=== PATIENT | female | born 1945 | race Caucasian/White ===

== ENCOUNTER 2020-08-29 09:17 | Outpatient (REF) | payer SELFPAY | END 2020-08-29 09:18 | disposition home or self-care (01) | LOC: HO.HAP 09:17 | PROVIDERS: PCP Internal Medicine Pulmonary Disease; Referring Provider Internal Medicine Pulmonary Disease; Visit Provider Internal Medicine Pulmonary Disease | DX: Z46.1 Encounter for fitting and adjustment of hearing aid (principal); H90.3 Sensorineural hearing loss, bilateral | CPT/HCPCS: 99499; V5267 ==

== ENCOUNTER 2020-12-21 12:00 | Outpatient (REF) | payer SELFPAY | END 2020-12-21 12:01 | disposition home or self-care (01) | LOC: HO.HAP 12:00 | PROVIDERS: Visit Provider Internal Medicine Pulmonary Disease | DX: Z46.1 Encounter for fitting and adjustment of hearing aid (principal) | CPT/HCPCS: V5267 ==

== ENCOUNTER 2021-01-29 09:13 | Outpatient (REF) | payer SELFPAY | END 2021-01-29 09:14 | disposition home or self-care (01) | LOC: HO.HAP 09:13 | PROVIDERS: Visit Provider Internal Medicine Pulmonary Disease | DX: Z46.1 Encounter for fitting and adjustment of hearing aid (principal); H90.3 Sensorineural hearing loss, bilateral | CPT/HCPCS: 99499 ==

== ENCOUNTER 2021-06-26 10:30 | Outpatient (REF) | payer MEDICARE, OTHER, SELFPAY ==
[2021-06-26 11:55] LABS: MANUAL DIFF FLAG NO
[2021-06-26 12:01] LABS: Basophils Absolute Auto 0.1 X10*3/uL (0.0-0.2); Eosinophils Absolute Auto 0.2 X10*3/uL (0.0-0.4); Eosinophils Percent Auto 2.7 % (0-4); Hematocrit 37.9 % (37-47); Hemoglobin 12.2 g/dl (12.0-16.0); Imm Gran Abs Auto 0.02 X10*3/uL (0.00-0.03); Imm Gran Pct Auto 0.3 % (0.0-0.4); Lymphocytes Absolute Auto 0.9 X10*3/uL (1.2-4.9); Lymphocytes Percent Auto 15.1 % (20-40); Mean Corpuscular HGB Conc 32.2 g/dl (31.0-35.0); Mean Corpuscular Hemoglobin 32.8 pg (27.0-33.0); Mean Corpuscular Volume 101.9 fL (80-98); Mean Platelet Volume 10.5 fL (9.4-12.3); Monocytes Absolute Auto 0.5 X10*3/uL (0.1-1.2); Neutrophils Absolute Auto 4.2 X10*3/uL (2.0-8.3); Neutrophils Percent Auto 71.9 % (45-73); Platelet Count 323 X10*3/uL (160-400); Red Blood Count 3.72 X10*6/uL (4.20-5.50); Red Cell Distribution Width 12.6 % (11.0-16.0); White Blood Count 5.9 X10*3/uL (4.8-10.8)
[2021-06-26 12:16] LABS: Alanine Aminotransferase 10 U/L (0-31); Alkaline Phosphatase 87 U/L (39-117); Anion Gap 14 (12-20); Aspartate Amino Transferase 13 U/L (5-31); Bilirubin Total 0.4 mg/dL (0.0-1.0); Blood Urea Nitrogen 23 mg/dL (9-16); Calcium 9.7 mg/dL (8.4-10.2); Carbon Dioxide 21 mmol/L (22-29); Chloride 112 mmol/L (96-108); Cholesterol 142 mg/dL; Estimated Glomerular Filt Rate 35; Glucose Fasting 133 mg/dL (60-99); HDL Cholesterol 40 mg/dL; Iron 59 mcg/dL (30-160); LDL Cholesterol Calculated 70 mg/dl; Percent Iron Saturation 19 % (15-50); Potassium 4.3 mmol/L (3.3-5.1); Sodium 143 mmol/L (135-145); Total Iron Binding Capacity 308 mcg/dL (228-428); Total Protein 6.8 g/dL (6.5-8.0); Triglycerides 163 mg/dL; Unsaturated Iron Binding 249 ug/dL
[2021-06-26 12:20] LABS: Estimated Average Glucose 111 mg/dL; Hemoglobin A1c % 5.5 %
[2021-06-26 12:36] LABS: Ferritin 159 ng/mL (10-250); TSH reflex Free T4 0.13 uIU/mL (0.32-4.0)
[2021-06-26 12:50] LABS: Folate 7.6 ng/mL (> or = 4.0); Vitamin B12 205 pg/mL (200-900)
== END 2021-06-26 10:31 | disposition home or self-care (01) ==
LOC: HO.HMGCLDS 10:30
PROVIDERS: PCP Nurse Practitioner Family; Visit Provider Nurse Practitioner Family
DX: R53.83 Other fatigue (principal); E11.9 Type 2 diabetes mellitus without complications; E03.9 Hypothyroidism, unspecified
CPT/HCPCS: 36415; 80053; 80061; 82607; 82728; 82746; 83036; 83540; 84439; 84443; 85025

== ENCOUNTER 2021-06-27 | Outpatient (REF) | payer MEDICARE, OTHER, SELFPAY ==
[2021-06-27 11:26] LABS: Appearance Urine HAZY; Color Urine YELLOW; Glucose Urine UA NEG (NEG); Leukocyte Esterase Urine 1+ (NEG); Nitrite Urine NEG (NEG); PH 5.5 (5.0-8.0); Specific Gravity - Urine 1.025 (1.005-1.025); UACC Culture Trigger YES; Urine Blood NEG (NEG); Urine Ketones NEG (NEG); Urine Protein NEG (NEG-TRACE)
[2021-06-27 11:45] LABS: Mucus Urine 1+ /LPF; Squamous Epithelial Cell Urine 2+ /LPF
[2021-06-27 11:46] LABS: RBC Urine 0-2 /HPF (0)
== END 2021-06-27 00:01 | disposition home or self-care (01) ==
LOC: HO.HMGCLNP
PROVIDERS: Visit Provider Nurse Practitioner Family
DX: E11.9 Type 2 diabetes mellitus without complications (principal)
CPT/HCPCS: 81001; 82043; 87086; 87088; 87186

== ENCOUNTER 2021-08-15 08:24 | Outpatient (REF) | payer SELFPAY ==
--- NOTE | 2021-08-15 08:47 | MHC.AU.P13 ---
Hearing Instrument Problem Date of Visit: 08/15/21 Right Ear: Pediatric Social Worker: Phonak Model: VIRTO Q70-10 NW0 Serial Number: [id number] Repair Warranty: 03/25/2019 Battery Size: 10 Type of Wax Guard: CERUSTOP Dispensed By: [facility] Date of Fittin03/08/2015 Left Ear: Pediatric Social Worker: Phonak Model: VIRTO Q70-10 NW0 Serial Number: [id number] Repair Warranty: 03/25/2019 Battery Size: 10 Type of Wax Guard: CERUSTOP Dispensed By: [facility] Date of Fittin03/08/2015 Follow-Up Summary: Patient brought aids in for maintenance/right pull cord missing. Aids cleaned, wax guards replaced and amplifying clearly. Patient cannot handle without pull cord so agreed to send for repair at cost of $315.00. Recommendations: Recommendations: Patient will be contacted when materials have arrived. Diagnosis Code(s): Primary Diagnosis: H90.3 Bilateral Sensorineural Hearing Loss Signature: Provider: ITZEL Traore
== END 2021-08-15 08:25 | disposition home or self-care (01) ==
LOC: HO.HAP 08:24
PROVIDERS: Visit Provider Nurse Practitioner Family
DX: Z13.89 Encounter for screening for other disorder (principal)

== ENCOUNTER 2021-08-28 09:46 | Outpatient (REF) | payer SELFPAY | END 2021-08-28 09:47 | disposition home or self-care (01) | LOC: HO.HAP 09:46 | PROVIDERS: Visit Provider Nurse Practitioner Family | DX: Z46.1 Encounter for fitting and adjustment of hearing aid (principal); H90.3 Sensorineural hearing loss, bilateral | CPT/HCPCS: V5014 ==

== ENCOUNTER 2021-09-13 08:46 | Outpatient (REF) | payer MEDICARE, OTHER, SELFPAY ==
--- NOTE | ~2021-09-13 | MM_ITS ---
EXAMINATION: BONE DENSITOMETRY CLINICAL INDICATION: Menopause. COMPARISON: This is the patient's baseline examination. TECHNIQUE: Using a Spins.FM DXA System (software version: 13.1) manufactured by [employer], dual-energy x-ray absorptiometry was performed of the lumbar spine and left hip. The images are of good technical quality. Summary results are attached. FINDINGS: AP SPINE L1-L4: BMD 1.207 g/cm2, Z-score 1.1, T-score 0.2, normal. LEFT FEMUR, NECK: BMD 0.734 g/cm2, Z-score -0.9, T-score -2.2, osteopenia. LEFT FEMUR, TOTAL: BMD 0.868 g/cm2, Z-score 0.0, T-score -1.1, osteopenia. IDENTIFIED RISK FACTORS: Early menopause, history of fracture (adult), hysterectomy, renal, right oophorectomy, secondary osteoporosis. HISTORY OF FRACTURE: Wrist, ankle. MEDICATIONS: ERT/SERMS. MM/XR DEXA axial skeleton IMPRESSION: 1. DIAGNOSIS: Osteopenia based on the lowest T-score value of -2.2 in the femoral neck applying World Health Organization criteria. 2. 10-YEAR FRACTURE RISK PREDICTION, FRAX: Major osteoporotic fracture (clinical spine, forearm, hip or shoulder) 19.1%. Hip fracture 4.5%. 3. Treatment Recommendations: NOF guidelines recommend consideration for treatment in postmenopausal women and men age 50 and older presenting with the following: -A hip or vertebral (clinical or morphometric) fracture. -T-score less than or equal to -2.5 at the femoral neck or spine after appropriate evaluation to exclude secondary causes. -Low bone mass at the hip or spine and a 10-year fracture probability by FRAX of greater than or equal to 3% for hip fracture or greater than or equal to 20% for major osteoporotic fracture based on the [place] adapted WHO algorithm. 4. Other Recommendations: All treatment decisions require clinical judgment and consideration of individual patient factors, including patient preferences, comorbidities, previous drug use, risk factors not captured in the FRAX model (e.g. frailty, falls, vitamin D deficiency, increased bone turnover, interval significant decline in bone density) and possible under or overestimation of fracture risk by FRAX. Additional medical evaluation for secondary cause of low bone mineral density may be appropriate. FUTURE SCAN RECOMMENDATION: People with diagnosed cases of osteoporosis or at high risk for fracture should have regular bone mineral density tests. For patients eligible for Medicare, routine testing is allowed once every 2 years. The testing frequency can be increased to one year for patients who have rapidly progressing disease, those who are receiving or discontinuing medical therapy to restore bone mass, or have additional risk factors.
== END 2021-09-13 08:47 | disposition home or self-care (01) ==
LOC: HO.MAMMO 08:46
PROVIDERS: Visit Provider Nurse Practitioner Family
DX: Z13.820 Encounter for screening for osteoporosis (principal); M85.80 Other specified disorders of bone density and structure, unspecified site; Z78.0 Asymptomatic menopausal state; Z98.890 Other specified postprocedural states; Z79.899 Other long term (current) drug therapy
CPT/HCPCS: 77080

== ENCOUNTER 2021-11-16 13:55 | Outpatient (REF) | payer MEDICARE, OTHER, SELFPAY ==
[2021-11-16 16:16] LABS: MANUAL DIFF FLAG NO
[2021-11-16 16:19] LABS: Basophils Percent Auto 0.8 % (0-2); Eosinophils Absolute Auto 0.3 X10*3/uL (0.0-0.4); Eosinophils Percent Auto 5.1 % (0-4); Hematocrit 38.8 % (37.0-47.0); Hemoglobin 12.7 g/dl (12.0-16.0); Imm Gran Abs Auto 0.02 X10*3/uL (0.00-0.03); Imm Gran Pct Auto 0.4 % (0.0-0.4); Lymphocytes Absolute Auto 1.2 X10*3/uL (1.2-4.9); Lymphocytes Percent Auto 25.1 % (20-40); Mean Corpuscular HGB Conc 32.7 g/dl (31.0-35.0); Mean Corpuscular Hemoglobin 31.4 pg (27.0-33.0); Mean Platelet Volume 10.9 fL (9.4-12.3); Monocytes Absolute Auto 0.5 X10*3/uL (0.1-1.2); Monocytes Percent Auto 9.8 % (2-11); Neutrophils Absolute Auto 2.9 x10*3/uL (2.0-8.3); Neutrophils Percent Auto 58.8 % (45-73); Platelet Count 234 X10*3/uL (160-400); Red Blood Count 4.04 X10*6/uL (4.20-5.50); Red Cell Distribution Width 11.5 % (11.0-16.0); White Blood Count 4.9 X10*3/uL (4.8-10.8)
[2021-11-16 16:24] LABS: INTERNATIONAL NORM RATIO 0.9 (0.9-1.1); Prothrombin Time 10.3 SEC (9.9-13.0)
[2021-11-16 16:27] LABS: Partial Thromboplastin Time 28.3 SEC (24.1-38.0)
[2021-11-16 16:41] LABS: Alanine Aminotransferase 11 U/L (0-31); Albumin Level 4.1 g/dL (3.5-5.0); Alkaline Phosphatase 80 U/L (39-117); Anion Gap 13 (12-20); Aspartate Amino Transferase 14 U/L (5-31); Bilirubin Total 0.5 mg/dL (0.0-1.0); Blood Urea Nitrogen 25 mg/dL (9-16); Carbon Dioxide 28 mmol/L (22-29); Chloride 105 mmol/L (96-108); Estimated Glomerular Filt Rate 32; Glucose Random 99 mg/dL (60-115); Potassium 4.2 mmol/L (3.3-5.1); Sodium 142 mmol/L (135-145); Total Protein 6.7 g/dL (6.5-8.0)
[2021-11-16 17:02] LABS: TSH reflex Free T4 1.36 uIU/mL (0.32-4.0)
== END 2021-11-16 13:56 | disposition home or self-care (01) ==
LOC: HO.HMGCLDS 13:55
PROVIDERS: PCP Nurse Practitioner Family; Visit Provider Nurse Practitioner Family
DX: Z01.818 Encounter for other preprocedural examination (principal)
CPT/HCPCS: 36415; 80053; 84443; 85025; 85610; 85730

== ENCOUNTER 2022-03-13 13:10 | Outpatient (REF) | payer MEDICARE, OTHER, SELFPAY ==
[2022-03-13 13:31] LABS: Binax Now Covid-19 Ag Positive (Negative); Binax Performed by: HO.BONILM
[2022-03-13 13:32] LABS: Binax Internal Control QC Valid
== END 2022-03-13 13:11 | disposition home or self-care (01) ==
LOC: HO.HMGCLDS 13:10
PROVIDERS: Visit Provider Physician Assistant
DX: Z20.822 Contact with and (suspected) exposure to COVID-19 (principal); J06.9 Acute upper respiratory infection, unspecified
CPT/HCPCS: 87811

== ENCOUNTER → 2022-04-03 13:54 | Outpatient (REF) | payer MEDICARE, OTHER, SELFPAY ==
--- NOTE | 2022-04-03 14:20 | CA_ITS ---
Transthoracic Echocardiogram Patient (Last, First, Middle): Kayleen Wilson C Gender: Female Date of : 1945 Age: 76 Procedure Date: 04/03/2022 Procedure Type: Transthoracic Echocardiogram Location: OP Height: 154.94 cm Weight: 83.01 kg BSA: 1.82 m2 Heart Rate: bpm BP: 122 / 70 mmHg Manager Switch: Referring MD: John Herrera [facility] Symptoms: R01.1 - Cardiac murmur, unspecified Study Quality: Adequate ECG Rhythm: Sinus Conclusions: - 1. Normal LV systolic function with mild LVH with impaired relaxation filling pattern 2. Mild to moderate aortic stenosis, more likely mild 3. Normal RV systolic pressure 4. No gross pericardial effusion Findings Left Ventricle Normal left ventricular size and systolic function. There is mildly increased left ventricular wall thickness. The visually estimated ejection fraction is between 60-65%. Spectral Doppler is indicative of an impaired relaxation filling pattern. E/E prime ratio is between 8 and 15 consistent with indeterminate filling pressures. Right Ventricle Normal right ventricular cavity size and systolic function. Atria The left atrium is normal in size. There is a mobile atrial septum noted. Interatrial shunt cannot be excluded. The right atrium is normal in size. Aortic Valve The aortic valve was not well visualized. There is mild calcification of the aortic valve. There is mild to moderate aortic valve stenosis. The peak aortic gradient is 21 mmHg.The mean gradient is 10 mmHg. The aortic valve area is 1.38 cm2. There is no aortic valve regurgitation. Mitral Valve The mitral valve was not well visualized. There is trace mitral valve regurgitation. There is no mitral valve stenosis. Pulmonic Valve The pulmonic valve was not well visualized. Tricuspid Valve Likely normal tricuspid valve structure and function. There is trace tricuspid valve regurgitation. The right ventricular systolic pressure is normal. The right ventricular systolic pressure is 15 mmHg. Normal right atrial pressure. There is no evidence of pulmonary hypertension. Great Vessels All visible segments of the aorta are normal in size. The pulmonary artery was not well visualized. Venous The inferior vena cava is normal in size and collapses greater than 50% with inspiration. Pericardium/Pleural There is no evidence of pericardial effusion. Measurements 2D Linear Measurements IVSd: 1.30 0.6-0.9/0.6-1.0 cm LVIDd: 4.24 3.9-5.3/4.2-5.9 cm LVIDd Index: 2.33 2.4-3.2/2.2-3.1 cm/m2 LVIDs: 2.78 2.0-3.6 cm LVPWd: 1.33 0.7-1.1 cm Ao Root: 3.00 2.1-3.5 cm LA Diam: 3.90 2.7-3.8/3.0-4.0 cm LAIDs Index: 2.14 1.5-2.3 cm/m2 LV Mass: 257.94 67-162/88-224 g LV Mass Index: 141.72 43-95/49-115 g/m2 LVOT Diam: 2.10 3.0+(-)1.3 cm Mitral Valve MV Pk E: 0.60 MV PK A: 0.84 MV Decel Time: 181.00 E/A: 0.70 E'Lateral: 6.74 E'Medial: 5.77 E/E' Med: 10.40 E/E' Lat: 8.90 PHT: 53.00 MVA PHT: 4.15 Decel Rhea: 3.32 Aortic Valve AoV Pk Bethel: 2.28 AoV Mn Bethel: 1.41 AoV VTI: 0.54 AoV Pk Grad: 21.00 Aov Mn Grad: 10.00 COURTNEY Cont.VTI: 1.38 LVOT LVOT Pk Bethel: 0.90 LVOT Mn Bethel: 0.59 LVOT VTI: 0.22 LVOT Pk Grad: 3.00 LVOT Mn Grad: 2.00 LVOT Diam: 2.10 LVOT Area: 3.46 Diastolic Function MV Pk E: 0.60 MV Pk A: 0.84 E/A: 0.70 E'Medial: 5.77 E/E' Med: 10.40 E' Laterial: 6.74 E/E' Lat: 8.90 Tricuspid Valve TR Pk Bethel: 1.76 TR Pk Grad: 12.00 RA Press: 3.00 RVSP: 15.00 Great Vessels Aorta Ao Root-2D: 3.00 2.0-3.7 cm Ao Asc: 3.10 2.1-3.4 cm Pulmonary Valve PV Pk Bethel: 1.29 Peak PV Grad: 7.00 Updated in Other Vendor System with Status of Final Bautista Gonzalez MD electronically signed on 04/04/2022 9:10:35 AM with status of Final
== END ==
LOC: HO.CARD 13:54
PROVIDERS: PCP Nurse Practitioner Family; Visit Provider Nurse Practitioner Family
DX: R01.1 Cardiac murmur, unspecified (principal)
CPT/HCPCS: 93306

== ENCOUNTER 2022-06-19 09:59 | Outpatient (REF) | payer MEDICARE, OTHER, SELFPAY ==
[2022-06-19 11:20] LABS: Appearance Urine Cloudy; Color Urine Yellow; Glucose Urine UA Negative (Negative); Leukocyte Esterase Urine Small (1+) (Negative); Nitrite Urine Negative (Negative); PH 5.5 (5.0-9.0); UMIC TRIGGER UACC YES; Urine Blood Small (1+) (Negative); Urine Ketones Negative (Negative); Urine Protein 30 (1+) mg/dL (Neg-Trace)
[2022-06-19 11:54] LABS: Bacteria Urine 4+ (None Seen); Hyaline Casts Urine 0-2 /LPF (0-2); RBC Urine 0-2 /HPF (0-2); Squamous Epithelial Cell Urine 0-2 /HPF (0-2); UACC Culture Trigger YES; WBC Urine 21-50 /HPF (0-5)
[2022-06-19 11:59] LABS: Creatinine Urine 62.34 mg/dL; Microalbum/Creatinine Ratio Ur 513.3 ug/mg cr
== END 2022-06-19 10:00 | disposition home or self-care (01) ==
LOC: HO.HMGCLDS 09:59
PROVIDERS: PCP Nurse Practitioner Family; Visit Provider Nurse Practitioner Family
DX: E11.9 Type 2 diabetes mellitus without complications (principal)
CPT/HCPCS: 81001; 82043; 87086; 87088; 87186

== ENCOUNTER 2022-11-06 10:30 | Outpatient (REF) | payer SELFPAY | END 2022-11-06 10:31 | disposition home or self-care (01) | LOC: HO.HAP 10:30 | PROVIDERS: Visit Provider Nurse Practitioner Family | DX: Z46.1 Encounter for fitting and adjustment of hearing aid (principal); H90.3 Sensorineural hearing loss, bilateral | CPT/HCPCS: 92592 ==

== ENCOUNTER 2022-11-07 12:53 | Outpatient (REF) | payer SELFPAY | END 2022-11-07 12:54 | disposition home or self-care (01) | LOC: HO.HAP 12:53 | PROVIDERS: Visit Provider Nurse Practitioner Family | DX: Z13.89 Encounter for screening for other disorder (principal) ==

== ENCOUNTER 2022-11-08 11:47 | Outpatient (REF) | payer SELFPAY | END 2022-11-08 11:48 | disposition home or self-care (01) | LOC: HO.HAP 11:47 | PROVIDERS: Visit Provider Nurse Practitioner Family | DX: Z13.89 Encounter for screening for other disorder (principal) ==

== ENCOUNTER 2023-02-05 10:02 | Outpatient (REF) | payer MEDICARE, OTHER, SELFPAY ==
[2023-02-05 11:33] LABS: MANUAL DIFF FLAG NO
[2023-02-05 11:52] LABS: Basophils Percent Auto 0.6 % (0-2); Eosinophils Absolute Auto 0.3 X10*3/uL (0.0-0.4); Eosinophils Percent Auto 4.9 % (0-4); Hematocrit 40.9 % (37.0-47.0); Hemoglobin 13.2 g/dl (12.0-16.0); Imm Gran Abs Auto 0.02 X10*3/uL (0.00-0.03); Imm Gran Pct Auto 0.3 % (0.0-0.4); Lymphocytes Absolute Auto 1.4 X10*3/uL (1.2-4.9); Lymphocytes Percent Auto 23.2 % (20-40); Mean Corpuscular HGB Conc 32.3 g/dl (31.0-35.0); Mean Corpuscular Hemoglobin 31.8 pg (27.0-33.0); Mean Corpuscular Volume 98.6 fL (80.0-98.0); Mean Platelet Volume 10.6 fL (9.4-12.3); Monocytes Absolute Auto 0.7 X10*3/uL (0.1-1.2); Monocytes Percent Auto 10.9 % (2-11); Neutrophils Absolute Auto 3.7 x10*3/uL (2.0-8.3); Neutrophils Percent Auto 60.1 % (45-73); Platelet Count 255 X10*3/uL (160-400); Red Blood Count 4.15 X10*6/uL (4.20-5.50); White Blood Count 6.2 X10*3/uL (4.8-10.8)
[2023-02-05 12:41] LABS: Estimated Average Glucose 94 mg/dL; Hemoglobin A1c % 4.9 %
[2023-02-05 12:54] LABS: Alanine Aminotransferase 8 U/L (0-31); Alkaline Phosphatase 70 U/L (39-117); Anion Gap 10 (12-20); Aspartate Amino Transferase 13 U/L (5-31); Bilirubin Total 0.6 mg/dL (0.0-1.0); Blood Urea Nitrogen 17 mg/dL (9-16); Calcium 9.7 mg/dL (8.4-10.2); Carbon Dioxide 26 mmol/L (22-29); Chloride 110 mmol/L (96-108); Cholesterol 176 mg/dL; Estimated Glomerular Filt Rate 49; Glucose Fasting 104 mg/dL (60-99); HDL Cholesterol 45 mg/dL; LDL Cholesterol Calculated 102 mg/dl; Potassium 4.4 mmol/L (3.3-5.1); Sodium 142 mmol/L (135-145); Total Protein 6.3 g/dL (6.5-8.0); Triglycerides 149 mg/dL
[2023-02-05 13:22] LABS: TSH reflex Free T4 2.25 uIU/mL (0.32-4.0)
== END 2023-02-05 10:03 | disposition home or self-care (01) ==
LOC: HO.HMGCLDS 10:02
PROVIDERS: PCP Nurse Practitioner Family; Visit Provider Nurse Practitioner Family
DX: E11.9 Type 2 diabetes mellitus without complications (principal); I10 Essential (primary) hypertension
CPT/HCPCS: 36415; 80053; 80061; 83036; 84443; 85025

== ENCOUNTER 2023-02-12 08:37 | Outpatient (REF) | payer OTHER, MEDICARE, SELFPAY ==
[2023-02-12 11:33] LABS: INTERNATIONAL NORM RATIO 0.9 (0.9-1.1); Prothrombin Time 9.9 SEC (10.0-13.1)
[2023-02-12 11:35] LABS: Partial Thromboplastin Time 27.2 SEC (26.0-36.4)
== END 2023-02-12 08:38 | disposition home or self-care (01) ==
LOC: HO.HMGCLDS 08:37
PROVIDERS: PCP Nurse Practitioner Family; Visit Provider Nurse Practitioner Family
DX: Z01.818 Encounter for other preprocedural examination (principal)
CPT/HCPCS: 36415; 85610; 85730

== ENCOUNTER 2023-05-15 13:46 | Outpatient (REF) | payer SELFPAY | END 2023-05-15 13:47 | disposition home or self-care (01) | LOC: HO.HAP 13:46 | PROVIDERS: Visit Provider Nurse Practitioner Family | DX: Z46.1 Encounter for fitting and adjustment of hearing aid (principal); H90.3 Sensorineural hearing loss, bilateral | CPT/HCPCS: 92593 ==

== ENCOUNTER 2023-06-09 15:05 | Outpatient (REF) | payer MEDICARE, OTHER, SELFPAY ==
[2023-06-09 17:24] LABS: Appearance Urine Clear; Color Urine Dark Yellow; Glucose Urine UA Negative (Negative); Leukocyte Esterase Urine Trace (Negative); Nitrite Urine Negative (Negative); Specific Gravity - Urine >= 1.030 (1.005-1.025); UMIC TRIGGER UACC YES; Urine Blood Negative (Negative); Urine Ketones Negative (Negative); Urine Protein 30 (1+) mg/dL (Neg-Trace)
[2023-06-09 17:32] LABS: Bacteria Urine None Seen (None Seen); Hyaline Casts Urine 0-2 /LPF (0-2); RBC Urine 0-2 /HPF (0-2); WBC Urine 0-5 /HPF (0-5)
== END 2023-06-09 15:06 | disposition home or self-care (01) ==
LOC: HO.HMGCLDS 15:05
PROVIDERS: PCP Nurse Practitioner Family; Visit Provider Nurse Practitioner Family
DX: I10 Essential (primary) hypertension (principal)
CPT/HCPCS: 81001; 81003

== ENCOUNTER 2023-06-16 13:20 | Outpatient (AMB) | payer MEDICARE, OTHER, SELFPAY ==
--- NOTE | 2023-06-16 13:26 | A.OFFVIS_ITS ---
Intake Vital Signs 06/16/23 13:32 Height 5 ft 1 in Weight 171 lb BMI 32.3 BP 142/92 H Blood Pressure Location Rt brachial Position Sitting Pulse 68 Pulse Source Pulse Oximeter Pulse Oximetry (%) 98 Oxygen Delivery Method Room Air Intake Visit Reasons: SWV G0439 Allergies cephalexin [From Keflex] Allergy (Severe, Verified 06/16/23 13:33) Swelling ciprofloxacin [From Cipro] Allergy (Severe, Verified 06/16/23 13:33) eye swelling penicillin G Allergy (Severe, Verified 06/16/23 13:33) Angioedema Penicillins Allergy (Severe, Verified 06/16/23 13:33) ANGIOEDEMA Sulfacet-R Allergy (Severe, Uncoded 02/12/23 08:01) Swelling Do you need a note to return to daycare/school/sports/work: No HPI SWV G0439 HPI Details Pt is here for an SWV. Denies fever, chills, and dizziness. [place] of care in scan pile. PPP will be scanned in chart and copy will be given to pt. Pt is going for a hearing test tomorrow. Will see pt for diabetes in 3 months, she is well-controlled. pt sees [facility] oncology team for breast ca [facility] Medical History (Updated 06/16/23 @ 14:05 by NU Claros) Lumbar radiculopathy Osteoarthritis Breast cancer, left Breast cancer Social History Housing: House Patient Tobacco Use Status: Former Tobacco user Tobacco use type: Cigarette Years Smoked: 50 years ago e-Cigarette/Vaping Use: Never Used Second Hand Smoke Exposure: No service: No Current occupational status: employed Current occupation: [employer] Current occupational exposures/hazards: No Cognitive needs: No Hearing needs: No Vision needs: Yes Questionnaire Medicare Wellness Checkup What [age] What gender do you identify with?: female During the past 4 weeks, how much have you been bothered by emotional problems such as feeling anxious, depressed, irritable, sad or downhearted, and blue?: quite a bit During the past 4 weeks, has your physical & emotional health limited your social activities with family, friends, neighbors, or groups?: quite a bit During the past 4 weeks, how much bodily pain have you generally had?: moderate pain During the past 4 weeks, was someone available to help you if you needed & wanted help?: yes, a little During the past 4 weeks, what was the hardest physical activity you could do for at least 2 minutes?: light Can you get to places out of walking distance without help? (For eg., can you travel alone on buses, taxis or drive your car?): Yes Can you go shopping for groceries or clothes without someone's help?: Yes Can you prepare your own meals?: Yes Can you do your housework without help?: No Because of any health problems, do you need the help of another person with your personal care needs such as eating, bathing, dressing or getting around the house?: No Can you handle your own money without help?: Yes During the past 4 weeks, how would you rate your health in general?: good During the past 4 weeks how have things been going for you?: good & bad parts about equal Are you having difficulties driving your car?: no Do you always fasten your seat belt when you are in a car?: yes, usually During past 4 weeks, have you been bothered by the following: never: Teeth or denture problems? and Problems using the telephone?, seldom: Falling or dizzy when standing up, sometimes: Tiredness or fatigue? and often: Trouble eating well? Have you fallen 2 or more times in the past year?: No Are you afraid of falling?: Yes Are you a smoker?: no During the past 4 weeks, how many drinks of wine, beer, or other alcoholic beverages did you have?: 1 drink or less per week Do you exercise for about 20 minutes 3 or more times a week?: no, I usually do not exercise this much Have you been given information to help with the following?: yes: Hazards in your house that might hurt you? and yes: Keeping track of your medications? How often do you have trouble taking medicines the way you have been told to take them?: I always take medicine as prescribed How confident are you that you can control & manage most of your health problems?: very confident What is your race?: White Mini Mental State Exam (MMSE) Orientation What is the (year) (season) (date) (day) (month)?: year (2022) Where are we (state) (county) (town or city) (hospital) (floor[place] Registration Name of 3 unrelated objects clearly and slowly, then ask patient to repeat all 3 of them. (1st repeat determines score. Make sure they can repeat all three): object 1, object 2 and object 3 Attention & Calculation (CHOOSE ONE) Spell WORLD backwards (DLROW): 5 letters Recall Ask patient to repeat the 3 items from question #3.: object 1, object 2 and object 3 Language Show patient a wristwatch & ask what it is. Repeat for pencil.: watch and pencil Ask the patient to repeat the phrase 'No ifs, ands, or buts' after you.: correct Ask the patient to 'take a piece of paper with their right hand' 'fold paper in half' 'place paper on floor': take paper in right hand, fold paper in half and place paper on floor Print the sentence 'CLOSE YOUR EYES' on a piece. If patient actually closes eyes then score.: followed written direction Give patient a blank piece of paper & ask to write a sentence. Score if it contains a noun & verb.: sentence contains subject and verb Ask patient to copy figure of intersecting pentagons exactly. Score if all 10 angles & 2 intersects are included.: all 10 angles present & 2 are intersected Score Score: 22 Activity of Daily Living Bathing - sponge bath, tub bath or shower: receives no assistance (gets in/out by self, if usual bathing means Dressing - getting clothes from closets & drawers, including inner/outer garments & fasteners.: gets clothes & gets completely dressed without help Toileting - going to the 'toilet room' for urine/bowel elimination & cleaning self/arranging clothes: goes to toilet room, cleans self, arranges clothes without help Transfer: moves in & out of bed and chair without help (may use support object) Continence: controls urination/bowel movements completely by self Feeding: feeds self without help Total Score: 0 Information obtained from: patient Using telephone: independent Traveling: independent Shopping: independent Preparing meals: independent Housework: independent Taking medicine: independent Managing money: independent Review of Systems Const Reports as per HPI Physical Exam Vital Signs: Last Vital Signs Pulse 68 06/16/23 13:32 BP 142/92 H 06/16/23 13:32 Pulse Ox 98 06/16/23 13:32 Oxygen Delivery Method Room Air 06/16/23 13:32 BMI result Body Mass Index 32.3 Const General: cooperative Orientation/consciousness: patient oriented x3 Neuro Other: - romberg, can tandem walk, can walk and turn, can rise from sitting to standing, passed whisper test General: patient oriented x3 Psych Appearance: grossly normal Mental Status: mental status grossly normal Speech and movement: Normal speech and movement present Affect: normal affect Attitude: cooperative Thought process: Normal thought process present Thought content: Normal thought content present Insight: Good insight present (Psych) Judgement: Good judgement present (Psych) Assessment & Plan Assessment & Plan (1) Encounter for annual wellness visit (AWV) in Medicare patient: Code(s): Z00.00 - Encounter for general adult medical examination without abnormal findings Plan The patient agreed to the use of a medical transcriber for this encounter. Scribed for NU Alexander by Olivia Cevallos medical transcriber, on 06/16/2023 at 13:50 EST. Orders: Orders Comprehensive [facility]. Panel Fast Today E11.9 - Type 2 diabetes mellitus without complications TSH reflex Free T4 Today E11.9 - Type 2 diabetes mellitus without complications Hemoglobin A1c Today E11.9 - Type 2 diabetes mellitus without complications Complete Blood Count Auto Diff Today E11.9 - Type 2 diabetes mellitus without complications UA CC w/rflx Micro + Cult Today E11.9 - Type 2 diabetes mellitus without complications Lipid Panel Today E11.9 - Type 2 diabetes mellitus without complications Microalbumin, Random (w Creat) Today E11.9 - Type 2 diabetes mellitus without complications Medications: Refilled lorazepam please take first tab 45 minutes before going to the hospital. May repeat x1 tab if the first tab does not help. 0.5 mg PO DAILY 1 day PRN 2 tabs 0RF pre-op anxiety lorazepam please take first tab 45 minutes before going to the hospital. May repeat x1 tab if the first tab does not help. 0.5 mg PO DAILY PRN 2 tabs 0RF pre-op anxiety 1 day Coding Level of Care Code Medicare Subsequent (G0439) Diagnoses Encounter for annual wellness visit (AWV) in Medicare patient Z00.00 CPT Codes Advance Care Planning - Time spent: 16-45 minutes ([id number]) Advance Care Planning Forms completed: Health Care Proxy (form given to pt), MOLST (form filled out by pt, copy in scan pile) and Living will (pt reports this has been done) Time spent: 16-45 minutes
[2023-06-16 13:32] VITALS: BP 142/92; PULSE 68; O2SAT 98; BMI 32.3
== END 2023-06-16 15:54 | disposition home or self-care (01) ==
PROVIDERS: Visit Provider Nurse Practitioner Family
DX: Z00.00 Encounter for general adult medical examination without abnormal findings (principal)
CPT/HCPCS: 99497; G0439

== ENCOUNTER 2023-07-11 12:51 | Outpatient (REF) | payer MEDICARE, OTHER, SELFPAY | END 2023-07-11 12:52 | disposition home or self-care (01) | LOC: HO.SH 12:51 | PROVIDERS: Visit Provider Nurse Practitioner Family | DX: Z01.118 Encounter for examination of ears and hearing with other abnormal findings (principal); H90.3 Sensorineural hearing loss, bilateral | CPT/HCPCS: 92557 ==

== ENCOUNTER 2023-07-11 13:56 | Outpatient (REF) | payer SELFPAY ==
--- NOTE | 2023-07-14 08:36 | MHC.AU.HA3 ---
Hearing Instrument Follow-Up- Binaural Date of Visit: 07/11/23 Right Ear: Make, Model, Color, Serial Number: Pedrito Colladoo Q70-10 NW O [facility] SN: [id number] Carbon Cutter Repair Warranty: 03/25/2019 Carbon Cutter Loss and Damage Warranty: 03/25/2019 Battery Size: 10 Type of Wax Guard: CeruStop Dispensed By: [facility] Date of Fittin03/08/2015 Left Ear: Make, Model, Color, Serial Number: Phonbarrett Virto Q70-10 NW O [facility] SN: [id number] Carbon Cutter Repair Warranty: 03/25/2019 Carbon Cutter Loss and Damage Warranty: 03/25/2019 Battery Size: 10 Type of Wax Guard: CeruStop Dispensed By: [facility] Date of Fittin03/08/2015 Follow-Up Summary: Kayleen returned for an updated hearing test (see separate report) and hearing aid maintenance. She reported her left hearing aid is not working as well as it used to. Cleaned both hearing aids. Vacuumed microphones and ran through dehumidifier. Left hearing aid is weak, missing the removal line and microphone cover, and the wax guard system is recessed into the hearing aid. Discussed options of repair vs replace, recommending new hearing aids due to age of current pair. Kayleen reported she is ready to pursue new hearing aids; however, she is planning to contact [facility] to determine her eligibility first. Attempted to reprogram and increase volume of left hearing aid to use in the meantime; however, could not get left hearing aid to connect to [employer] software. Tried using different cables, computers, and [employer] without success. Right hearing aid connected with no issues. Kayleen will use both hearing aids, as is for now, and will schedule a hearing aid consultation following approval through [facility]. Recommendations: Hearing instrument follow-up or maintenance as needed. Please contact our clinic with any questions or concerns. Diagnosis Code(s): Primary Diagnosis: H90.3 Bilateral Sensorineural Hearing Loss Signature: Provider: Jovanny Fay, [facility]
== END 2023-07-11 13:57 | disposition home or self-care (01) ==
LOC: HO.HAP 13:56
PROVIDERS: Visit Provider Nurse Practitioner Family
DX: Z46.1 Encounter for fitting and adjustment of hearing aid (principal); H90.3 Sensorineural hearing loss, bilateral
CPT/HCPCS: 92593

== ENCOUNTER 2023-08-21 12:56 | Outpatient (AMB) | payer MEDICARE, OTHER, SELFPAY ==
--- NOTE | 2023-08-21 12:58 | MHC.PC.OV ---
Vital Signs 08/21/23 13:01 Height 5 ft 1 in Weight 171 lb BMI 32.3 BP 132/80 Blood Pressure Location Rt brachial Position Sitting Pulse 59 Pulse Source Pulse Oximeter Pulse Oximetry (%) 98 Oxygen Delivery Method Room Air Intake Visit Reasons: LT knee Replacemant Allergies cephalexin [From Keflex] Allergy (Severe, Verified 08/21/23 13:03) Swelling ciprofloxacin [From Cipro] Allergy (Severe, Verified 08/21/23 13:03) eye swelling penicillin G Allergy (Severe, Verified 08/21/23 13:03) Angioedema Penicillins Allergy (Severe, Verified 08/21/23 13:03) ANGIOEDEMA Sulfacet-R Allergy (Severe, Uncoded 08/21/23 13:03) Swelling Tobacco use date assessed: 02/12/23 HPI LT knee Replacemant HPI Details Pt is here for a pre-op evaluation. She is scheduled for a left knee replacement on 08/26. Pt already had labs and EKG through ortho. Pt is cleared for surgery from my stand point. [facility] Medical History Lumbar radiculopathy Osteoarthritis Breast cancer, left Breast cancer Social History Housing: House Patient Tobacco Use Status: Former Tobacco user Tobacco use type: Cigarette Years Smoked: 50 years ago e-Cigarette/Vaping Use: Never Used Second Hand Smoke Exposure: No service: No Current occupational status: employed Current occupation: [employer] Current occupational exposures/hazards: No Cognitive needs: No Hearing needs: No Vision needs: Yes Questionnaire Thrive Questionnaire Date Thrive assessed: 10/15/22 LESLIE-7 AMB Questionnaire LESLIE-7 Date LESLIE - 7 assessed: 10/15/22 Source: Developed by Drs. Taiwo Banegas, Pat Benoit, Nestor Zimmer and colleagues, with an educational valarie from [employer]. Review of Systems Const Denies chills and Denies fever(s) Eyes Denies blurry vision ENT Denies vertigo, Denies dizziness and Denies sore throat Card Denies chest pain at rest, Denies chest pain with activity, Denies diaphoresis, Denies dyspnea and Denies dyspnea on exertion Resp Denies cough, Denies dyspnea, Denies dyspnea on exertion and Denies wheezing GI Denies abdominal pain, Denies melena, Denies hematochezia, Denies constipation, Denies diarrhea and Denies loose stools Denies hematuria Musc Denies numbness and Denies tingling Skin/Breast Denies lesions Neuro Denies vertigo, Denies dizziness, Denies numbness and Denies tingling Psych Denies anxiety, Denies depression, Denies homicidal ideation, Denies suicidal ideation and Denies other (substance abuse) Aller/Immun Denies wheezing Physical exam (Primary Care) Vital Signs: Last Vital Signs Pulse 59 08/21/23 13:01 BP 132/80 08/21/23 13:01 Pulse Ox 98 08/21/23 13:01 Oxygen Delivery Method Room Air 08/21/23 13:01 BMI result Body Mass Index 32.3 Tobacco/Smoking Status: Tobacco use Status Tobacco use date assessed 02/12/23 08/21/23 13:00 Patient Tobacco Use Status Former Tobacco user 08/21/23 13:00 Tobacco use type Cigarette 08/21/23 13:00 e-Cigarette/Vaping Use Never Used 08/21/23 13:00 Thrive Assessment: Date of Thrive Assessment Date Thrive assessed 10/15/22 08/21/23 13:00 Const General: cooperative Nutritional Appearance: well nourished Orientation/consciousness: patient oriented x3 Neck Neck: Yes no lymphadenopathy Resp Effort & Inspection: normal respiratory effort Auscultation: clear to auscultation bilaterally Cardio Rate: regular rate Rhythm: regular rhythm Heart sounds: S1 normal heart sound present, S2 normal heart sound present and Murmur heart sound present systolic Neuro General: patient oriented x3 Psych Appearance: grossly normal Mental Status: mental status grossly normal Speech and movement: Normal speech and movement present Affect: normal affect Attitude: cooperative Thought process: Normal thought process present Thought content: Normal thought content present Insight: Good insight present (Psych) Judgement: Good judgement present (Psych) Assessment and Plan Assessment & Plan (1) Pre-operative examination: Code(s): Z01.818 - Encounter for other preprocedural examination Plan The patient agreed to the use of a medical affairs leader for this encounter. Scribed for NU Alexander by Olivia Mart, medical affairs leader, on 08/21/2023 at 13:15 EST. Coding Level of Care Code Est Pt Prev Care >65y(69357) Diagnoses Pre-operative examination Z01.818
[2023-08-21 13:01] VITALS: BP 132/80; PULSE 59; O2SAT 98; BMI 32.3
== END 2023-08-21 15:23 | disposition home or self-care (01) ==
PROVIDERS: PCP Nurse Practitioner Family; Visit Provider Nurse Practitioner Family
DX: Z01.818 Encounter for other preprocedural examination (principal)
CPT/HCPCS: 99213

== ENCOUNTER 2023-09-30 12:23 | Outpatient (REF) | payer MEDICARE, OTHER, SELFPAY ==
[2023-09-30 17:11] LABS: MANUAL DIFF FLAG NO
[2023-09-30 17:31] LABS: Basophils Percent Auto 0.7 % (0-2); Eosinophils Absolute Auto 0.2 X10*3/uL (0.0-0.4); Hematocrit 36.5 % (37.0-47.0); Hemoglobin 11.6 g/dl (12.0-16.0); Imm Gran Abs Auto 0.02 X10*3/uL (0.00-0.03); Imm Gran Pct Auto 0.4 % (0.0-0.4); Lymphocytes Absolute Auto 1.1 X10*3/uL (1.2-4.9); Lymphocytes Percent Auto 19.5 % (20-40); Mean Corpuscular HGB Conc 31.8 g/dl (31.0-35.0); Mean Corpuscular Volume 100.8 fL (80.0-98.0); Mean Platelet Volume 10.8 fL (9.4-12.3); Monocytes Absolute Auto 0.6 X10*3/uL (0.1-1.2); Monocytes Percent Auto 10.7 % (2-11); Neutrophils Absolute Auto 3.5 x10*3/uL (2.0-8.3); Neutrophils Percent Auto 64.7 % (45-73); Platelet Count 240 X10*3/uL (160-400); Red Blood Count 3.62 X10*6/uL (4.20-5.50); Red Cell Distribution Width 13.1 % (11.0-16.0); White Blood Count 5.4 X10*3/uL (4.8-10.8)
[2023-09-30 17:40] LABS: Alanine Aminotransferase 7 U/L (0-31); Albumin Level 3.6 g/dL (3.5-5.0); Alkaline Phosphatase 89 U/L (39-117); Anion Gap 14 (12-20); Aspartate Amino Transferase 16 U/L (5-31); Bilirubin Total 0.4 mg/dL (0.0-1.0); Blood Urea Nitrogen 13 mg/dL (9-16); Calcium 9.4 mg/dL (8.4-10.2); Carbon Dioxide 23 mmol/L (22-29); Chloride 109 mmol/L (96-108); Estimated Average Glucose 100 mg/dL; Estimated Glomerular Filt Rate 54; Glucose Random 95 mg/dL (60-115); Hemoglobin A1c % 5.1 % (<6.0); Potassium 3.8 mmol/L (3.3-5.1); Sodium 142 mmol/L (135-145); Total Protein 6.6 g/dL (6.5-8.0); Uric Acid 6.9 mg/dL (2.4-5.7)
[2023-09-30 17:58] LABS: Thyroid Stimulating Hormone 1.68 uIU/mL (0.32-4.0); Vitamin D 25-OH Total 31.8 ng/mL (>30)
== END 2023-09-30 12:24 | disposition home or self-care (01) ==
LOC: HO.HMGCLDS 12:23
PROVIDERS: PCP Nurse Practitioner Family; Visit Provider Internal Medicine Nephrology
DX: I12.9 Hypertensive chronic kidney disease with stage 1 through stage 4 chronic kidney disease, or unspecified chronic kidney disease (principal); N18.9 Chronic kidney disease, unspecified
CPT/HCPCS: 36415; 80053; 82306; 83036; 84443; 84550; 85025

== ENCOUNTER 2024-01-13 10:24 | Outpatient (AMB) | payer MEDICARE, OTHER, SELFPAY ==
--- NOTE | 2024-01-13 10:28 | A.OFFPC_ITS ---
Vital Signs 01/13/24 10:33 Height 5 ft 1 in Weight 171 lb 8 oz BMI 32.4 BP 150/82 H Blood Pressure Location Lt brachial Position Sitting Pulse 62 Pulse Source Pulse Oximeter Pulse Oximetry (%) 97 Oxygen Delivery Method Room Air Intake Visit Reasons: 4 month fu Intake Note: pt is here for 4 month follow up, patient states shes been feeling sick for the last 2 weeks and concerned of dizziness Financial Services Sales Representative Required: No Accompanied by: Self / Same As Patient Allergies cephalexin [From Keflex] Allergy (Severe, Verified 01/13/24 10:34) Swelling ciprofloxacin [From Cipro] Allergy (Severe, Verified 01/13/24 10:34) eye swelling penicillin G Allergy (Severe, Verified 01/13/24 10:34) Angioedema Penicillins Allergy (Severe, Verified 01/13/24 10:34) ANGIOEDEMA Sulfacet-R Allergy (Severe, Uncoded 08/21/23 13:03) Swelling Medication List - Last Reconciled 01/13/24 by COLLEEN Claros- atorvastatin 10 mg PO DAILY 90 days bupropion HCl 100 mg PO BID 90 days carvedilol 12.5 mg PO BID 30 days insulin glargine (Lantus U-100 Insulin) 15 units (0.15 mL) subcut QPM 30 days levothyroxine 50 mcg PO DAILY lorazepam 0.5 mg PO DAILY PRN 1 day pen needle, diabetic (Pen Needle) Use to inject insulin once a day potassium Cl-calcium phos-mag 40-18-9 mg 1 tab PO QID PRN sitagliptin phosphate (Januvia) 100 mg PO DAILY 90 days Tobacco use date assessed: 01/13/24 Fall risk assessment: 1 Fall in past year Last assessed Fall Risk: 01/13/24 Dental Screening Dental Screen Date: 01/13/24 Did you have a dental visit in the last 12 months?: Yes Did you have a dental problem in the last 6 months where you did not have access to dental care?: No Was dental information given to patient?: Patient has dentist HPI 4 month fu HPI Details Pt is a diabetic, on a statin. A1C in office today is 6.1. Due for microalbumin, will order. Denies polyuria, polydipsia, and neuropathy. Pt denies any signs and symptoms of hypoglycemia and does know how to correct it. Pt c/o nausea and diarrhea. She is seeing oncology and believes this could have been related to a cancer med which she has stopped in May. Pt does report ongoing nausea, vomiting, and diarrhea. She reports diarrhea soon after eating. ? IBS component. Will order stool studies and refer to GI for possible endoscopy. Denies fever, chills, and dizziness. BP up, but with her current illness, most likely related. [facility] Medical History Lumbar radiculopathy Osteoarthritis Breast cancer, left Breast cancer Surgical History History of total left knee replacement Social History Housing: House Patient Tobacco Use Status: Former Tobacco user Tobacco use type: Cigarette Years Smoked: 50 years ago e-Cigarette/Vaping Use: Never Used Second Hand Smoke Exposure: No service: No Current occupational status: employed Current occupation: [employer] Current occupational exposures/hazards: No Cognitive needs: No Hearing needs: No Vision needs: Yes Questionnaire PHQ-9 Over the last 2 weeks, how often have you been bothered by any of the following problems? 1. Little interest or pleasure in doing things: several days 2. Feeling down, depressed, or hopeless: more than half the days 3. Trouble falling or staying asleep, or sleeping too much: more than half the days 4. Feeling tired or having little energy: more than half the days 5. Poor appetite or overeating: more than half the days 6. Feeling bad about yourself - or that you are a failure or have let yourself or your family down: not at all 7. Trouble concentrating on things, such as reading the newspaper or watching television: not at all 8. Moving or speaking so slowly that other people could have noticed. Or the opposite - being so fidgety or restless that you have been moving around a lot more than usual: not at all 9. Thoughts that you would be better off or of hurting yourself in some way: not at all Total score: 9 Depression Screening Interpretation: Negative Depression Screening Done: Yes 01764 - PHQ-9 Billing: Yes Source: Developed by Drs. Taiwo Banegas, Pat Benoit, Nestor Zimmer and colleagues, with an educational valarie from [employer] Thrive Questionnaire Date Thrive assessed: 01/13/24 I am a: Patient What is your living situation today?: I have a steady place to live Within the past 12 months, did the food you bought not last and you didn't have the money to get more?: Never true Within the past 12 months, did you worry whether your food would run out before you got money to buy more?: Never true Do you have trouble paying for medicines?: No Do you have trouble getting transportation to medical appointments?: No Do you have trouble paying your heating and electricity bill?: No Do you have trouble taking care of your child, family member or friend?: No Do you have trouble with day-to-day activities such as bathing, preparing meals, shopping, managing finances, etc.?: No Are you currently unemployed and looking for a job?: No Are you interested in more education?: No Please select the resources that you would like help with: None Currently or been in a relationship where the following occur: no concerns reported THRIVE Score: 0 AUDIT C Alcohol Use Questionnaire (AUDIT-C) 1. How often do you have a drink containing alcohol?: Monthly or less 2. How many drinks containing alcohol do you have on a typical day when you are drinking?: 1 or 2 3. How often do you have six or more drinks on one occasion?: Never Total Score: 1 Score Reviewed/Action Taken: Yes LESLIE-7 AMB Questionnaire LESLIE-7 Date LESLIE - 7 assessed: 01/13/24 Feeling nervous, anxious, or on edge: 0 = Not at all Not being able to stop or control worryin = Not at all Worrying too much about different things: 1 = Several days Trouble relaxin = Several days Being so restless that it is hard to sit still: 0 = Not at all Becoming easily annoyed or irritable: 0 = Not at all Feeling afraid as if something awful might happen: 0 = Not at all Total LESLIE-7 score (0-4 normal; 5-9 mild; 10-14 moderate; 15-21 severe): 2 Source: Developed by Drs. Taiwo Banegas, Pat Benoit, Nestor nolasco nd colleagues, with an educational valarie from [employer] LESLIE-7 Assessment Billing LESLIE-7 Assessment Tool: LESLIE-7 Assessment 98669 Review of Systems Const Reports as per HPI Physical exam (Primary Care) Vital Signs: Last Vital Signs Pulse 62 01/13/24 10:33 BP 150/82 H 01/13/24 10:33 Pulse Ox 97 01/13/24 10:33 Oxygen Delivery Method Room Air 01/13/24 10:33 BMI result Body Mass Index 32.4 Tobacco/Smoking Status: Tobacco use Status Tobacco use date assessed 01/13/24 01/13/24 10:37 Patient Tobacco Use Status Former Tobacco user 01/13/24 10:29 Tobacco use type Cigarette 01/13/24 10:29 e-Cigarette/Vaping Use Never Used 01/13/24 10:29 PHQ-9: PHQ-9 Score PHQ-9: Total score 9 01/13/24 10:37 Depression Screening Interpretation: Negative Thrive Assessment: Date of Thrive Assessment Date Thrive assessed 01/13/24 01/13/24 10:37 Currently or been in a relationship where the following occur: no concerns reported Const General: cooperative Nutritional Appearance: obese Orientation/consciousness: patient oriented x3 Resp Effort & Inspection: normal respiratory effort Auscultation: clear to auscultation bilaterally Cardio Rate: regular rate Rhythm: regular rhythm Heart sounds: S1 normal heart sound present, S2 normal heart sound present and Murmur heart sound present systolic GI Other: no abdominal pain with palpation, BS + Neuro General: patient oriented x3 Extrem Other: bilat feet: + sensation with use of monofilament, feet intact Psych Appearance: grossly normal Mental Status: mental status grossly normal Speech and movement: Normal speech and movement present Affect: normal affect Attitude: cooperative Thought process: Normal thought process present Thought content: Normal thought content present Insight: Good insight present (Psych) Judgement: Good judgement present (Psych) Assessment and Plan Assessment & Plan (1) Nausea & vomiting: Code(s): R11.2 - Nausea with vomiting, unspecified Plan: GI panel ordered, referred to GI (2) Diarrhea: Code(s): R19.7 - Diarrhea, unspecified Plan: GI panel ordered, referred to GI (3) Diabetes: Code(s): E11.9 - Type 2 diabetes mellitus without complications Plan The patient agreed to the use of a certified medical coding specialist for this encounter. Scribed for NU Alexander by Olivia Cevallos certified medical coding specialist, on 01/13/2024 at 10:40 EST. Orders: Orders Complete Blood Count Auto Diff Today E11.9 - Type 2 diabetes mellitus without complications Comprehensive [place]. Panel Fast Today E11.9 - Type 2 diabetes mellitus without complications UA CC w/rflx Micro + Cult Today E11.9 - Type 2 diabetes mellitus without complications Microalbumin, Random (w Creat) Today E11.9 - Type 2 diabetes mellitus without complications AMB Hemoglobin A1c Today Z13.9 - Encounter for screening, unspecified GI Panel Today R11.2 - Nausea with vomiting, unspecified, R19.7 - Diarrhea, unspecified H pylori Ag Stool Today R11.2 - Nausea with vomiting, unspecified, R19.7 - Diarrhea, unspecified CDiff Gene PCR Today R11.2 - Nausea with vomiting, unspecified, R19.7 - Diarrhea, unspecified TSH reflex Free T4 Today E11.9 - Type 2 diabetes mellitus without complications Lipid Panel Today E11.9 - Type 2 diabetes mellitus without complications Referrals Gastroenterology Referral R11.2 - Nausea with vomiting, unspecified, R19.7 - Diarrhea, unspecified Coding Level of Care Code Est Pt Level 3 (93824) Diagnoses Nausea & vomiting R11.2 Diarrhea R19.7 Diabetes E11.9 Additional Codes LESLIE-7 Assessment Billing - LESLIE-7 Assessment Tool: LESLIE-7 Assessment 95394 ([id number])
[2024-01-13 10:33] VITALS: BP 150/82; PULSE 62; O2SAT 97; BMI 32.4
== END 2024-01-13 10:58 | disposition home or self-care (01) ==
PROVIDERS: PCP Nurse Practitioner Family; Visit Provider Nurse Practitioner Family
DX: E11.9 Type 2 diabetes mellitus without complications (principal)
CPT/HCPCS: 83036; 99213

== ENCOUNTER 2024-01-16 02:21 | Outpatient (REF) | payer MEDICARE, OTHER, SELFPAY ==
[2024-01-16 14:56] LABS: Adenovirus F 40/41 Not Detected (Not Detect.); Astrovirus Not Detected (Not Detect.); Campylobacter Not Detected (Not Detect.); Cryptosporidium Not Detected (Not Detect.); Cyclospora cayetanensis Not Detected (Not Detect.); E. coli EAEC Not Detected (Not Detect.); E. coli EPEC Detected (Not Detect.); E. coli ETEC Not Detected (Not Detect.); E. coli STEC Not Detected (Not Detect.); Entamoeba histolytica Not Detected (Not Detect.); Giardia lamblia Not Detected (Not Detect.); Norovirus GI/GII Not Detected (Not Detect.); Plesiomonas shigelloides Not Detected (Not Detect.); Rotavirus A Not Detected (Not Detect.); Salmonella Not Detected (Not Detect.); Sapovirus Not Detected (Not Detect.); Shigella sp./EIEC Not Detected (Not Detect.); Vibrio Not Detected (Not Detect.); Vibrio Cholerae Not Detected (Not Detect.); Yersinia enterocolitica Not Detected (Not Detect.)
== END 2024-01-16 02:22 | disposition home or self-care (01) ==
LOC: HO.HMGCLNP 02:21
PROVIDERS: Visit Provider Nurse Practitioner Family
DX: R19.7 Diarrhea, unspecified (principal); R11.2 Nausea with vomiting, unspecified
CPT/HCPCS: 87338; 87507

== ENCOUNTER 2024-01-28 09:56 | Outpatient (REF) | payer SELFPAY | END 2024-01-28 09:57 | disposition home or self-care (01) | LOC: HO.HAP 09:56 | PROVIDERS: Visit Provider Internal Medicine | DX: Z13.89 Encounter for screening for other disorder (principal) ==

== ENCOUNTER 2024-02-19 08:02 | Outpatient (AMB) | payer MEDICARE, OTHER, SELFPAY ==
--- OUTSIDE RECORDS SUMMARY | 2024-02-19 08:03 | XMS_ITS | Continuity of Care Document ---
Author Organization [facility] Address [address] [place] [address]- Care Team Providers Care Hospital Receiving Clerk Name Role Phone Sharon CHIU, John Sweeney Primary Care Physician [facility] [id number] Date(s): 08/18/23 - 08/25/23 [facility] [address] [place] [address]- Attending Physician: Not on Staff, Attending MD Referring Physician: Sandra BENAVIDES, Rodrick Smith Allergies, Adverse Reactions, Alerts Substance Reaction Severity Status ciprofloxacin eye swelling, itchy Active cephalexin Rash Active sulfADIAZINE eye swelling Active sulfa drugs Active penicillin G benzathine Rash eye swelling, itchy Active Orphenadrine Citrate Active NSAIDs Active oxyCODONE Nausea and vomiting Active Medications acetaminophen 325 mg oral tablet 650 mg, 2, tablet, By Mouth, Every 6 hours, Refills 0, Maintenance, 12/14/20 10:54:00 EDT, Partial fill upon patient request if the prescription is for a schedule II opioid drug. Start Date: 12/14/20 Status: Ordered atorvastatin 10 mg oral tablet 1 tablet = 10 mg, By Mouth, Daily, 0 Refills, Maintenance, 11/15/20 12:02:00 EST, Partial fill uponpatient request if the prescription is for a schedule II opioid drug. Start Date: 11/15/20 Status: Ordered buPROPion 100 mg oral tablet 1 tablet = 100 mg, By Mouth, 2 times a day, # 60 tablet, 0 Refills, Maintenance, 11/07/22 11:49:00 EST, Tablet, Partial fill upon patient request if the prescription is for a schedule II opioid drug. Start Date: 11/07/22 Status: Ordered carvedilol 25 mg oral tablet 25 mg, 1, tablet, By Mouth, 2 times a day, # 60 tablet, Refills 0, Maintenance, 11/07/22 11:49:00 EST, Partial fill upon patient request if the prescription is for a schedule II opioid drug. Start Date: 11/07/22 Status: Ordered Insulin Glargine Inj 0.1 mL = 10 units, Subcutaneous Injection, Daily at bedtime, 0 Refills, Maintenance, 12/14/20 10:54:00 EDT, Injection, Partial fill upon patient request if the prescription is for a schedule II opioid drug. Start Date: 12/14/20 Status: Ordered Januvia By Mouth, Daily, 0 Refills, Maintenance, 09/01/15 18:32:48 Start Date: 09/01/15 Status: Ordered levothyroxine 0.05 mg oral tablet 1 tablet = 50 mcg, By Mouth, Daily, # 30 tablet, 0 Refills, Maintenance, 11/07/22 11:49:00 EST, Tablet, Partial fill upon patient request if the prescription is for a schedule II opioid drug. Start Date: 11/07/22 Status: Ordered Problem List Condition Confirmation Course Effective Dates Status H ealth Status Informant Chronic kidney disease (CKD) Confirmed Active COVID-19 Confirmed Active Depression Confirmed Active HLD (hyperlipidemia) Confirmed Active HTN (hypertension) Confirmed Active Hypothyroidism Confirmed Active Breast cancer Confirmed Active Obese class I Confirmed Active Primary osteoarthritis of right knee Confirmed Active Pneumonia Confirmed Active T2DM (type 2 diabetes mellitus) Confirmed Active Procedures Procedure Date Related Diagnosis Body Site Status Appendectomy Completed Bilateral cataracts Compl eted Right Total knee arthroplasty Completed Vital Signs Most recent to oldest [Reference Range]: 1 Height 153 cm (08/18/23 9:12 AM) Weight 78.7 kg (08/18/23 9:12 AM) Oxygen Saturation [94-100 %] 98 % (08/18/23 9:12 AM) Pulse Rate [55-90 bpm] 67 bpm (08/18/23 9:12 AM) Body Mass Index [18.5-24.99 kg/m2] 33.62 kg/m2 *>HHI* (08/18/23 9:12 AM) Blood Pressure [90-138/55-84 mm Hg] 163/ 69mm Hg *H* (08/18/23 9:12 AM) Respiratory Rate [16-30 br/min] 16 br/mi n (08/18/23 9:12 AM) Blood pressure sites Arm, right (08/18/23 9:12 AM) Weight Obtained Via Standing scale (08/18/23 9:12 AM) Social History Social History Type Response Smoking Status Never (less than 100 in lifetime) entered on: 10/27/20 Sex EKG study * Event Display: ECG 12-Lead Authored Date: Please click on pdf link to open report * Event Display: ECG 12-Lead Authored Date: Ventricular Rate: 55 BPM Atrial Rate: 55 BPM P-R Interval: 166 ms QRS Duration: 74 ms Q-T Interval: 452 ms QTC Calculation(Bazett): 432 ms P [place]: 31 degrees R [place]: -4 degrees T [place]: 21 degrees Sinus bradycardia Voltage criteria for left ventricular hypertrophy Abnormal ECG When compared with ECG of 07-NOV-2022 12:24, [place] interval has decreased Confirmed by KRYSTLE CARR MD ([id number]) on 08/20/2023 7:16:01 AM [place]: KRYSTLE CARR MD Patient Care team information Care Team Personnel Name: Mary Ann Nicholas Position: [facility] Onco RN Member Role: Primary Care Nurse Name: Tunde Napoles RN Position: S RN Member Role: Primary Care Nurse Name: Maritza Isaac RN Position: S RN Member Role: Primary Care Nurse Name: John Herrera NP Position: Reference Physician Member Role: PCP Address: Address: [address] [place] [address] Name: Radha Rutherford LPN Position: S RN Member Role: Primary Care Nurse Name: Juan Whitehead RN Position: S RN Member Role: Primary Care Nurse Name: Emelina Mcknight RN Position: S RN Member Role: Primary Care Nurse Name: Sarah Azevedo RN Position: S RN Member Role: Primary Care Nurse Name: Karson Law MD Position: [facility] Renal MD Member Role: Lifetime Consulting Physician Address: Address: [address] [place] [address] [facility], [place] [address]- Name: Darryn Welch RN Position: [facility] Onco RN Member Role: Primary Care Nurse Name: Yelena Arriola RN Position: S RN Member Role: Primary Care Nurse Name: Jie Clark RN, I Position: S RN Member Role: Primary Care Nurse Care Team Related Persons Name: RHONDA VORA Address: home [address] [place] [id number]
[2024-02-19 08:36] VITALS: BP 130/90; PULSE 65; TEMP 36.4; O2SAT 95; BMI 32.7
--- NOTE | 2024-02-19 08:36 | AM.OFFWIN_ITS ---
Intake Vital Signs 02/19/24 08:36 Height 5 ft 1 in Weight 173 lb BMI 32.7 BP 130/90 H Blood Pressure Location Lt brachial Position Sitting Pulse 65 Pulse Source Pulse Oximeter Temp 97.5 F Temp Source Temporal Artery Scan Pulse Oximetry (%) 95 Intake Visit Reasons: EP Cough, sore throat, headache Intake Note: pt is here today for cough sore throat headache started friday Patient Tobacco Use Status: Former Tobacco user Allergies cephalexin [From Keflex] Allergy (Severe, Verified 02/19/24 08:46) Swelling ciprofloxacin [From Cipro] Allergy (Severe, Verified 02/19/24 08:46) eye swelling penicillin G Allergy (Severe, Verified 02/19/24 08:46) Angioedema Penicillins Allergy (Severe, Verified 02/19/24 08:46) ANGIOEDEMA Sulfacet-R Allergy (Severe, Uncoded 08/21/23 13:03) Swelling Do you need a note to return to daycare/school/sports/work: No HPI HPI Comments History of Present Illness Details 78 y/o female patient who presents to [facility] in clinic with c/o URI symptoms since Friday. [facility] Medical History (Updated 01/28/24 @ 14:21 by John Herrera DEAN [employer]) Disc degeneration, lumbar Lumbar radiculopathy Osteoarthritis Breast cancer, left Breast cancer Surgical History History of total left knee replacement Social History Housing: House Patient Tobacco Use Status: Former Tobacco user Tobacco use type: Cigarette Years Smoked: 50 years ago e-Cigarette/Vaping Use: Never Used Second Hand Smoke Exposure: No service: No Current occupational status: employed Current occupation: [employer] Current occupational exposures/hazards: No Cognitive needs: No Hearing needs: No Vision needs: Yes Review of Systems Const All systems reviewed & are unremarkable except as noted in HPI and below Physical Exam Vital Signs: Last Vital Signs Temp 97.5 F 02/19/24 08:36 Pulse 65 02/19/24 08:36 BP 130/90 H 02/19/24 08:36 Pulse Ox 95 02/19/24 08:36 BMI result Body Mass Index 32.7 Const General: comfortable and no acute distress Orientation/consciousness: patient oriented x3 HEENT Head: Yes normocephalic Ears: external ears normal and TM's normal bilaterally General nose exam: Normal nasal mucous membranes and turbinates present Face and sinus: Yes sinuses nontender Mouth: moist mucous membranes Throat: Yes posterior oropharynx normal Resp Effort & Inspection: normal respiratory effort and able to speak in complete s entences Auscultation: clear to auscultation bilaterally, no crackles, no rales, no rhonchi and no wheezes Neuro General: patient oriented x3 Results AMB Rapid Strep AMB Rapid Strep Negative Last Edit by Alem Ignacio MA on 02/19/24 08:55 Results Reviewed Results Reviewed: Laboratory Last Values Strep Scn Rapid Clinic Negative 02/19/24 08:55 Assessment & Plan Assessment & Plan (1) Cough in adult: Code(s): R05.9 - Cough, unspecified Plan: - OTC cough remedies - Warm fluids with honey. Orders: Orders XR chest 2V Today R05.9 - Cough, unspecified Medications: New doxycycline hyclate 100 mg PO BID 20 caps 0RF 10 days R05.9 - Cough, unspecified benzonatate 100 mg PO TID 30 caps 0RF R05.9 - Cough, unspecified Coding Level of Care Code Est Pt Level 3 (97783) Diagnoses Cough in adult R05.9 Time Spent (min) 15
== END 2024-02-19 09:41 | disposition home or self-care (01) ==
PROVIDERS: PCP Nurse Practitioner Family; Visit Provider Nurse Practitioner Family
DX: R05.9 Cough, unspecified (principal)
CPT/HCPCS: 99213

== ENCOUNTER 2024-02-19 09:12 | Outpatient (REF) | payer MEDICARE, OTHER, SELFPAY ==
--- NOTE | ~2024-02-19 | XR_ITS ---
EXAMINATION: XR CHEST CLINICAL INFORMATION: Persistent cough COMPARISON: None available. TECHNIQUE: 2 views of the chest were obtained. FINDINGS: Lungs clear. No pleural effusions. Heart and pulmonary vessels are normal. XR/XR chest 2V IMPRESSION: No active disease.
== END 2024-02-19 09:13 | disposition home or self-care (01) ==
LOC: HO.HMGCX 09:12
PROVIDERS: PCP Nurse Practitioner Family; Visit Provider Nurse Practitioner Family
DX: R05.9 Cough, unspecified (principal)
CPT/HCPCS: 71046

== ENCOUNTER 2024-02-26 12:04 | Outpatient (REF) | payer MEDICARE, OTHER, SELFPAY ==
[2024-02-26 13:02] LABS: MANUAL DIFF FLAG NO
[2024-02-26 13:34] LABS: Basophils Percent Auto 0.5 % (0-2); Eosinophils Absolute Auto 0.2 X10*3/uL (0.0-0.4); Eosinophils Percent Auto 3.1 % (0-4); Hematocrit 34.5 % (37.0-47.0); Hemoglobin 11.9 g/dl (12.0-16.0); Imm Gran Abs Auto 0.03 X10*3/uL (0.00-0.03); Imm Gran Pct Auto 0.5 % (0.0-0.4); Lymphocytes Absolute Auto 1.3 X10*3/uL (1.2-4.9); Lymphocytes Percent Auto 23.9 % (20-40); Mean Corpuscular HGB Conc 34.5 g/dl (31.0-35.0); Mean Corpuscular Volume 95.6 fL (80.0-98.0); Mean Platelet Volume 9.6 fL (9.4-12.3); Monocytes Absolute Auto 0.6 X10*3/uL (0.1-1.2); Monocytes Percent Auto 11.3 % (2-11); Neutrophils Absolute Auto 3.4 x10*3/uL (2.0-8.3); Neutrophils Percent Auto 60.7 % (45-73); Platelet Count 270 X10*3/uL (160-400); Red Blood Count 3.61 X10*6/uL (4.20-5.50); Red Cell Distribution Width 14.6 % (11.0-16.0); White Blood Count 5.6 X10*3/uL (4.8-10.8)
[2024-02-26 14:18] LABS: Alanine Aminotransferase 10 U/L (0-31); Albumin Level 3.9 g/dL (3.5-5.0); Alkaline Phosphatase 77 U/L (39-117); Anion Gap 10 (12-20); Aspartate Amino Transferase 14 U/L (5-31); Bilirubin Direct 0.2 mg/dL (0.0-0.5); Bilirubin Total 0.7 mg/dL (0.0-1.0); Blood Urea Nitrogen 22 mg/dL (9-16); C Reactive Protein 0.13 mg/dL (< or = 0.50); Calcium 9.7 mg/dL (8.4-10.2); Carbon Dioxide 24 mmol/L (22-29); Chloride 112 mmol/L (96-108); Erythrocyte Sedimentation Rate 26 MM/HR (0-20); Estimated Glomerular Filt Rate 58; Glucose Random 121 mg/dL (60-115); Potassium 3.2 mmol/L (3.3-5.1); Sodium 143 mmol/L (135-145); Total Protein 6.5 g/dL (6.5-8.0)
[2024-02-27 18:44] LABS: Immunoglobulin A 247 mg/dL (70-320)
[2024-02-27 21:33] LABS: Gliadin Deamidated IgA Ab <1.0 U/mL; Gliadin Deamidated IgG Ab <1.0 U/mL; Transglutaminase Ab IgG <1.0 U/mL; Transglutaminase IgA <1.0 U/mL
[2024-02-29 23:08] LABS: Endomysial IgA Antibody Negative (Negative)
== END 2024-02-26 12:05 | disposition home or self-care (01) ==
LOC: HO.HMGCLDS 12:04
PROVIDERS: PCP Nurse Practitioner Family; Visit Provider Internal Medicine
DX: R11.0 Nausea (principal); R19.7 Diarrhea, unspecified; R63.4 Abnormal weight loss
CPT/HCPCS: 36415; 80048; 80076; 82784; 85025; 85652; 86140; 86231; 86258; 86364

== ENCOUNTER 2024-02-27 08:25 | Outpatient (REF) | payer MEDICARE, OTHER, SELFPAY ==
[2024-02-27 15:16] LABS: CDiff Gene PCR NEGATIVE (Negative)
[2024-02-27 17:20] LABS: Adenovirus F 40/41 Not Detected (Not Detect.); Astrovirus Not Detected (Not Detect.); Campylobacter Not Detected (Not Detect.); Cryptosporidium Not Detected (Not Detect.); Cyclospora cayetanensis Not Detected (Not Detect.); E. coli EAEC Not Detected (Not Detect.); E. coli EPEC Not Detected (Not Detect.); E. coli ETEC Not Detected (Not Detect.); E. coli STEC Not Detected (Not Detect.); Entamoeba histolytica Not Detected (Not Detect.); Giardia lamblia Not Detected (Not Detect.); Norovirus GI/GII Not Detected (Not Detect.); Plesiomonas shigelloides Not Detected (Not Detect.); Rotavirus A Not Detected (Not Detect.); Salmonella Not Detected (Not Detect.); Sapovirus Not Detected (Not Detect.); Shigella sp./EIEC Not Detected (Not Detect.); Vibrio Not Detected (Not Detect.); Vibrio Cholerae Not Detected (Not Detect.); Yersinia enterocolitica Not Detected (Not Detect.)
[2024-03-06 02:54] LABS: Calprotectin, Fecal 12 mcg/g
== END 2024-02-27 08:26 | disposition home or self-care (01) ==
LOC: HO.HMGCLNP 08:25
PROVIDERS: Visit Provider Internal Medicine
DX: R11.0 Nausea (principal); R63.4 Abnormal weight loss; R19.7 Diarrhea, unspecified
CPT/HCPCS: 83993; 87177; 87209; 87329; 87493; 87507

== ENCOUNTER 2024-03-26 09:55 | Day surgery (SDC) | payer MEDICARE, OTHER, SELFPAY ==
[2024-03-23 14:39] VITALS: BMI 32.5
[2024-03-26 10:12] VITALS: BMI 32.2
--- NOTE | 2024-03-26 10:18 | P.CONAN_ITS ---
[facility] Active Problems Active Problems: All Active Problems Hypokalemia (Acute) Diarrhea (Acute) Nausea & vomiting (Acute) Encounter for annual wellness visit (AWV) in Medicare patient (Acute) Hearing decreased (Acute) Aortic stenosis (Acute) Change in pigmented skin lesion of face (Acute) Depression, major, recurrent (Acute) Systolic murmur (Acute) Nausea (Acute) Upset stomach (Acute) Pre-operative examination (Acute) Renal calculi (Acute) Osteopenia (Acute) Postmenopausal (Acute) HTN (hypertension) (Acute) Hypothyroid (Acute) Chronic back pain (Acute) Fatigue (Acute) Diabetes (Acute) Acute bronchitis (Acute) Gout attack (Acute) Breast cancer (Acute) Past Medical History Medical History Elevated cholesterol Breast cancer Hx of radiation therapy Depression Spinal stenosis Degenerative disc disease, cervical Arthritis Back pain HTN (hypertension) Diabetes Disc degeneration, lumbar Lumbar radiculopathy Osteoarthritis Breast cancer, left Surgical History Surgical History Hx of bilateral cataract extraction History of knee replacement History of carpal tunnel release of both wrists Hx of cholecystectomy Hx of appendectomy Hx of hysterectomy History of lumpectomy of left breast H/O colonoscopy History of total left knee replacement History of Problems with Anesthesia: No Social History Social History Housing: House Patient Tobacco Use Status: Former Tobacco user Tobacco use type: Cigarette Years Smoked: 50 years ago e-Cigarette/Vaping Use: Never Used Second Hand Smoke Exposure: No Advance Directives: No Advance Directives Information Provided: Yes service: No Current occupational status: employed Current occupation: [employer] Current occupational exposures/hazards: No Cognitive needs: No Hearing needs: No Vision needs: Yes Meds Allergies Allergy/AdvReac Type Severity Reaction Status Date / Time cephalexin [From Keflex] Allergy Severe Swelling Verified 03/26/24 10:11 ciprofloxacin [From Cipro] Allergy Severe eye Verified 03/26/24 10:11 swelling penicillin G Allergy Severe Angioedema Verified 03/26/24 10:11 Penicillins Allergy Severe ANGIOEDEMA Verified 03/26/24 10:11 gabapentin Allergy Unknown Verified 03/26/24 10:11 meloxicam Allergy Unknown Verified 03/26/24 10:11 NSAIDS (Non-Steroidal AdvReac Unknown Verified 03/26/24 10:11 Anti-Inflamma Sulfacet-R Allergy Severe Swelling Uncoded 08/21/23 13:03 Active Medications: Current Medications Lactated Ringer's (Lr) 1,000 mls @ 80 mls/hr IVCONT .[id number] KIMBERLY Sodium Biphosphate/Sodium Phosphate (Sodium Phosphate,Davison-Dibasic 133 Ml Enema) 133 ml MN ONCE PRN PRN Reason: Poor Colonoscopy Prep Results Home Medications ?Medication ?Instructions ?Recorded ?Confirmed ?Last Taken ?Type potassium Cl-calcium phos-mag 40 1 tab PO QID PRN 02/12/23 01/13/24 Unknown History mg-18 mg-9 mg tablet carvedilol 25 mg tablet 25 mg PO BID 03/23/24 03/23/24 03/26/24 09:15 History insulin glargine 100 unit/mL 20 unit subcut QPM 03/23/24 03/23/24 Unknown History subcutaneous solution (Lantus U-100 Insulin) levothyroxine 75 mcg tablet 75 mcg PO DAILY 03/23/24 03/23/24 Unknown History Exam Height,Weight and Vital Signs: Height 5 ft 1 in Weight 78.018 kg Airway Mallampati Class: II TM Dist: >3cm Neck ROM: Limited Loose/Missing/Broken Teeth: No Heart: RRR Lungs: CTA Assessment and Plan Assessment Anesthesia Assessment: Anesthesia Plan Discussed and Chart Reviewed Final Anesthetic Review History of Problems with Anesthesia: No NPO: Yes ASA Class: III Final Preanesthetic Review: Meds/Allgs Chart Reviewed, Consent Obtained/Reviewed and Anes Risks/Benef Reviewed Patient Risk: Intermediate Procedure Risk: Intermediate Anesthetic Plan Anesthetic Plan: MAC: Disposition: Standard PACU
[2024-03-26 10:27] VITALS: BP 139/59; PULSE 69; RESP 16; TEMP 37.1; O2SAT 98
[2024-03-26 10:38] LABS: Anion Gap 14 (12-20); Carbon Dioxide 20 mmol/L (22-29); Chloride 109 mmol/L (96-108); Potassium 3.7 mmol/L (3.3-5.1); Sodium 139 mmol/L (135-145)
[2024-03-26 10:40] LABS: INTERNATIONAL NORM RATIO 0.9 (0.9-1.1)
[2024-03-26] MEDS: Lactated Ringers 1,000 ML 80 ML IVCONT (10:46)
[2024-03-26 10:50] LABS: Glucose, Whole Blood 85 mg/dL (60-115)
[2024-03-26 12:17] VITALS: BP 113/96; PULSE 71; RESP 16; TEMP 36.1; O2SAT 100
--- NOTE | 2024-03-26 12:31 | PM.OP ---
Brief Operative Note Date of Service: 03/26/24 Pre-op diagnosis: Nausea, diarrhea, weight loss Post-op diagnosis: other (Hiatal hernia, Diverticulosis, Internal hemorrhoids) Procedure: EGD with biopsies, Colonoscopy to the cecum with biopsies Surgeon: Taiwo Mcintosh MD Anesthesia: MAC Was an Territory Manager General Sales used for this Procedure?: No Estimated blood loss (mL): 2.0 Pathology: other (A. Descending duodenum B. Gastric antrum C. Ascending colon D. Descending colon) Condition: stable Disposition: PACU
[2024-03-26 12:32] VITALS: BP 106/55; PULSE 71; RESP 18; TEMP 36.1; O2SAT 96
--- NOTE | 2024-03-26 13:48 | OP_ITS ---
DATE OF SERVICE: 03/26/2024 SURGEON: Taiwo Mcintosh MD INDICATIONS: The patient presents for evaluation of nausea, diarrhea, and weight loss. Full consent has been obtained from her for both procedures, including risks of bleeding and perforation. PREOPERATIVE DIAGNOSIS: POSTOPERATIVE DIAGNOSIS: PROCEDURE PERFORMED: Esophagogastroduodenoscopy with biopsies and colonoscopy to the cecum with biopsies. ESTIMATED BLOOD LOSS: COMPLICATIONS: ANESTHESIA: Monitored anesthesia care. ASSISTANTS: SPECIMENS: PREOPERATIVE DIAGNOSES: Nausea, diarrhea, weight loss. POSTOPERATIVE DIAGNOSES: Nausea, diarrhea, weight loss, rule out celiac disease, rule out H pylori, hiatal hernia, rule out microscopic colitis, diverticulosis, and internal hemorrhoids. DESCRIPTION OF PROCEDURE: The patient was placed in the left lateral decubitus position. The Olympus video gastroscope was passed in the posterior oropharynx and upper esophagus under direct vision. The scope was passed slowly into the distal esophagus. The gastroesophageal junction appeared at 36 cm. There was no sign of any esophagitis, Parry esophagus, nor any other abnormality. The scope entered the stomach. There was a small hiatal hernia. The scope was advanced to the pylorus, and the duodenum was cannulated to the descending portion. The duodenum including the bulb appeared normal without mass or ulceration. Biopsies were obtained from the 2nd and 3rd portions of duodenum. The scope was withdrawn back into the stomach. The gastric antrum and body appeared normal with good peristalsis. Biopsies were obtained from the antrum. The scope was retroflexed, visualizing the proximal stomach carefully, which appeared normal, without any sign of mass or ulceration. The scope was straightened and withdrawn back in the esophagus. The esophageal mucosa appeared normal. The scope was withdrawn from the patient. She was turned around for the colonoscopy. The digital rectal exam revealed no abnormalities. The Olympus video pediatric colonoscope was entered into the rectum and advanced easily to the cecum. Once in the cecum, I did identify normal-appearing cecal pouch with appendiceal orifice and a normal-appearing ileocecal valve. The entire cecum and ileocecal valve appeared normal. The scope was slowly withdrawn assessing all mucosal surfaces carefully. Preparation was excellent. I did not visualize any sign of polyps, colitis, nor angiodysplasia. There was a mild amount of sigmoid diverticulosis. Random biopsies were obtained in the ascending and descending colon. In the rectum, scope was retroflexed visualizing internal hemorrhoids, but no other pathology. The rectal mucosa appeared normal. The scope was straightened and withdrawn from the patient. She tolerated the procedure well and was returned to the recovery area in stable condition. IMPRESSION: 1. Rule out celiac disease. 2. Rule out Helicobacter pylori. 3. Small hiatal hernia. 4. Diverticulosis. 5. Rule out microscopic colitis. 6. Internal hemorrhoids. PLAN: The results of the biopsies will be checked. At this point, she does report that the omeprazole has helped with some of her upper GI complaints of the nausea. Based on the procedures today, I did not see any evidence of an etiology of her symptoms, but we shall await the results of the biopsies. Recent laboratories and stool specimens were negative for any significant findings that would account for her symptoms. I will plan to see her in the office for followup. She was advised to continue the omeprazole daily, p.r.n. Zofran and p.r.n. Imodium. This has been discussed with her son. MD SANDOVAL Darby/DENNIS / [id number]
== END 2024-03-26 13:11 | disposition home or self-care (01) ==
PROVIDERS: Anesthesiology; PCP Nurse Practitioner Family; Visit Provider Internal Medicine
PROC: (CPT 45380; principal; 2024-03-26 11:20)
DX: R63.0 Anorexia (principal); R63.4 Abnormal weight loss; Z68.32 Body mass index [BMI] 32.0-32.9, adult; K57.30 Diverticulosis of large intestine without perforation or abscess without bleeding; K64.8 Other hemorrhoids; R19.7 Diarrhea, unspecified; R11.0 Nausea; K29.50 Unspecified chronic gastritis without bleeding; K29.80 Duodenitis without bleeding; K44.9 Diaphragmatic hernia without obstruction or gangrene; Z85.3 Personal history of malignant neoplasm of breast; I10 Essential (primary) hypertension; E11.9 Type 2 diabetes mellitus without complications; Z79.4 Long term (current) use of insulin; Z79.899 Other long term (current) drug therapy; Z87.891 Personal history of nicotine dependence; Z88.0 Allergy status to penicillin; Z88.1 Allergy status to other antibiotic agents; Z88.2 Allergy status to sulfonamides; Z88.8 Allergy status to other drugs, medicaments and biological substances; Z79.84 Long term (current) use of oral hypoglycemic drugs
CPT/HCPCS: 45380; 43239; 36415; 80051; 82947; 85610; 88305; 88313; 88342; J1596; J2704

== ENCOUNTER 2024-03-29 11:25 | Outpatient (AMB) | payer MEDICARE, OTHER, SELFPAY ==
[2024-03-29 11:26] VITALS: BP 142/68; PULSE 66; O2SAT 98; BMI 33.1
--- NOTE | 2024-03-29 11:26 | MHC.PC.OV ---
Vital Signs 03/29/24 11:26 Height 5 ft 1 in Weight 175 lb 4 oz BMI 33.1 BP 142/68 H Blood Pressure Location Rt brachial Position Sitting Pulse 66 Pulse Source Pulse Oximeter Pulse Oximetry (%) 98 Oxygen Delivery Method Room Air Intake Visit Reasons: 3M F/U Allergies cephalexin [From Keflex] Allergy (Severe, Verified 03/29/24 12:50) Swelling ciprofloxacin [From Cipro] Allergy (Severe, Verified 03/29/24 12:50) eye swelling penicillin G Allergy (Severe, Verified 03/29/24 12:50) Angioedema Penicillins Allergy (Severe, Verified 03/29/24 12:50) ANGIOEDEMA gabapentin Allergy (Verified 03/29/24 12:50) Unknown meloxicam Allergy (Verified 03/29/24 12:50) Unknown NSAIDS (Non-Steroidal Anti-Inflamma Adverse Reaction (Verified 03/29/24 12:50) Unknown Sulfacet-R Allergy (Severe, Uncoded 03/29/24 12:50) Swelling Medication List - Last Reconciled 03/29/24 by NU Claros atorvastatin 10 mg PO DAILY 90 days bupropion HCl 100 mg PO BID 90 days carvedilol 25 mg PO BID insulin glargine (Lantus U-100 Insulin) 20 units subcut QPM levothyroxine 75 mcg PO DAILY ondansetron mg PO pen needle, diabetic (Pen Needle) Use to inject insulin once a day potassium Cl-calcium phos-mag 40-18-9 mg 1 tab PO QID sitagliptin phosphate (Januvia) 100 mg PO DAILY 90 days Tobacco use date assessed: 03/29/24 Fall risk assessment: No Falls in past year Last assessed Fall Risk: 03/29/24 Dental Screening Dental Screen Date: 03/29/24 Did you have a dental visit in the last 12 months?: No Did you have a dental problem in the last 6 months where you did not have access to dental care?: No Was dental information given to patient?: No HPI 3M F/U HPI Details Pt is a diabetic, on a statin. A1C in office today is 5.6. Due for microalbumin. Denies polyuria, polydipsia, does report neuropathy. Pt denies any signs and symptoms of hypoglycemia and does know how to correct it. eye exam is up to date PFSH Medical History Elevated cholesterol Breast cancer Hx of radiation therapy Depression Spinal stenosis Degenerative disc disease, cervical Arthritis Back pain HTN (hypertension) Diabetes Disc degeneration, lumbar Lumbar radiculopathy Osteoarthritis Breast cancer, left Surgical History Hx of bilateral cataract extraction History of knee replacement History of carpal tunnel release of both wrists Hx of cholecystectomy Hx of appendectomy Hx of hysterectomy History of lumpectomy of left breast H/O colonoscopy History of total left knee replacement Social History Housing: House Patient Tobacco Use Status: Former Tobacco user Tobacco use type: Cigarette Years Smoked: 50 years ago e-Cigarette/Vaping Use: Never Used Second Hand Smoke Exposure: No service: No Current occupational status: employed Current occupation: [employer] Current occupational exposures/hazards: No Cognitive needs: No Hearing needs: No Vision needs: Yes Questionnaire Thrive Questionnaire Date Thrive assessed: 01/13/24 AUDIT C Alcohol Use Questionnaire (AUDIT-C) 1. How often do you have a drink containing alcohol?: Monthly or less 2. How many drinks containing alcohol do you have on a typical day when you are drinking?: 1 or 2 3. How often do you have six or more drinks on one occasion?: Never Total Score: 1 Score Reviewed/Action Taken: Yes LESLIE-7 AMB Questionnaire LESLIE-7 Date LESLIE - 7 assessed: 01/13/24 Source: Developed by Drs. Taiwo Banegas, Pat Benoit, Nestor Zimmer and colleagues, with an educational valarie from [employer]. Review of Systems Const Reports as per HPI Physical exam (Primary Care) Vital Signs: Last Vital Signs Pulse 66 03/29/24 11:26 BP 142/68 H 03/29/24 11:26 Pulse Ox 98 03/29/24 11:26 Oxygen Delivery Method Room Air 03/29/24 11:26 BMI result Body Mass Index 33.1 Tobacco/Smoking Status: Tobacco use Status Tobacco use date assessed 03/29/24 03/29/24 11:30 Patient Tobacco Use Status Former Tobacco user 03/29/24 11:27 Tobacco use type Cigarette 03/29/24 11:27 e-Cigarette/Vaping Use Never Used 03/29/24 11:27 Thrive Assessment: Date of Thrive Assessment Date Thrive assessed 01/13/24 03/29/24 11:27 Const General: cooperative Nutritional Appearance: obese Orientation/consciousness: patient oriented x3 Resp Effort & Inspection: normal respiratory effort Auscultation: clear to auscultation bilaterally Cardio Rate: regular rate Rhythm: regular rhythm Heart sounds: S1 normal heart sound present, S2 normal heart sound present and Murmur heart sound present systolic Neuro General: patient oriented x3 Extrem Other: bilat feet: + sensation with use of monofilament, feet intact Psych Appearance: grossly normal Mental Status: mental status grossly normal Speech and movement: Normal speech and movement present Affect: normal affect Attitude: cooperative Thought process: Normal thought process present Thought content: Normal thought content present Insight: Good insight present (Psych) Judgement: Good judgement present (Psych) Assessment and Plan Assessment & Plan (1) Aortic stenosis: Code(s): I35.0 - Nonrheumatic aortic (valve) stenosis Plan: echo ordered (2) Diabetes: Code(s): E11.9 - Type 2 diabetes mellitus without complications Plan: stable, cont same routine Plan The patient agreed to the use of a medical receptionist assistant for this encounter. Scribed for NU Alexander by Olivia Cevallos medical receptionist assistant, on 03/29/2024 at 11:40 EST. Orders: Orders CA echo transthoracic complete Today I35.0 - Nonrheumatic aortic (valve) stenosis AMB Hemoglobin A1c Today E11.9 - Type 2 diabetes mellitus without complications, Z13.9 - Encounter for screening, unspecified Coding Level of Care Code Est Pt Level 3 (87930) Diagnoses Aortic stenosis I35.0 Diabetes E11.9
== END 2024-03-29 12:19 | disposition home or self-care (01) ==
PROVIDERS: PCP Internal Medicine; Visit Provider Nurse Practitioner Family
DX: I35.0 Nonrheumatic aortic (valve) stenosis (principal); E11.9 Type 2 diabetes mellitus without complications
CPT/HCPCS: 83036; 99213

== ENCOUNTER → 2024-04-15 09:54 | Outpatient (REF) | payer MEDICARE, OTHER, SELFPAY ==
--- NOTE | 2024-04-15 09:57 | CA_ITS ---
Transthoracic Echocardiogram Patient (Last, First, Middle): Kayleen Wilson C Gender: Female Date of : 1945 Age: 78 Procedure Date: 04/15/2024 Procedure Type: Transthoracic Echocardiogram Location: OP Height: 152. cm Weight: 78.02 kg BSA: 1.75 m2 Heart Rate: 53 bpm BP: 160 / 80 mmHg Infusion Rn: SABRINA Referring MD: John Herrera [facility] Symptoms: I35.0 - Nonrheumatic aortic (valve) stenosis Study Quality: Fair ECG Rhythm: Bradycardia Conclusions: - The left ventricular systolic function is normal. The calculated ejection fraction is 58% by biplane method. - The basal inferior segment is hypokinetic. - No obvious valvular pathology seen on this study. Findings Left Ventricle Normal left ventricular cavity size. There is mildly increased left ventricular wall thickness. The left ventricular systolic function is normal. The calculated ejection fraction is 58% by biplane method. Evidence suggests grade I (mild) diastolic dysfunction. There is moderate septal asymmetric hypertrophy. Wall Motion Rest Echo Findings The basal inferior segment is hypokinetic. Right Ventricle Normal right ventricular cavity size and systolic function. Atria Both atria are normal in size. Aortic Valve The aortic valve was not well visualized. There is mild calcification of the aortic valve. There is mild aortic valve stenosis. Mitral Valve The mitral valve appears normal. There is trace mitral valve regurgitation. There is no mitral valve stenosis. Pulmonic Valve The pulmonic valve is likely normal. Tricuspid Valve Normal tricuspid valve structure. There is trace tricuspid valve regurgitation. There is no evidence of pulmonary hypertension. Great Vessels The asc aorta is normal in size. Venous The inferior vena cava is normal in size and collapses greater than 50% with inspiration. Pericardium/Pleural There is no evidence of pericardial effusion. Prior Study Comparison Changes noted compared to prior study dated: 04/03/2022. see comment on wall motion. Recommendations, Care & Conclusions No obvious valvular pathology seen on this study. Measurements 2D Linear Measurements IVSd: 1.41 0.6-0.9/0.6-1.0 cm LVIDd: 4.86 3.9-5.3/4.2-5.9 cm LVIDd Index: 2.78 2.4-3.2/2.2-3.1 cm/m2 LVIDs: 3.12 2.0-3.6 cm LVPWd: 1.21 0.7-1.1 cm LA Diam: 4.10 2.7-3.8/3.0-4.0 cm LAIDs Index: 2.34 1.5-2.3 cm/m2 LV Mass: 315.87 67-162/88-224 g LV Mass Index: 180.50 43-95/49-115 g/m2 LVOT Diam: 2.00 3.0+(-)1.3 cm 2D Systolic Function EF 4C: 52.40 >55% EF 2C: 63.40 >55% EF BiP: 58.00 >55% Mitral Valve MV Pk E: 0.73 MV PK A: 0.93 MV Decel Time: 405.00 E/A: 0.80 E'Lateral: 5.44 E'Medial: 5.11 E/E' Med: 14.30 E/E' Lat: 13.50 PHT: 119.00 MVA PHT: 1.85 Decel Glades: 1.81 Aortic Valve AoV Pk Bethel: 2.35 AoV Mn Bethel: 1.67 AoV VTI: 0.63 AoV Pk Grad: 22.00 Aov Mn Grad: 12.00 COURTNEY Cont.VTI: 1.41 LVOT LVOT Pk Bethel: 0.92 LVOT Mn Bethel: 0.72 LVOT VTI: 0.28 LVOT Pk Grad: 3.00 LVOT Mn Grad: 2.00 LVOT Diam: 2.00 LVOT Area: 3.14 Diastolic Function MV Pk E: 0.73 MV Pk A: 0.93 E/A: 0.80 E'Medial: 5.11 E/E' Med: 14.30 E' Laterial: 5.44 E/E' Lat: 13.50 Right Ventricle TAPSE (mm): 24.00 TVS' Bethel: 10.30 Tricuspid Valve TR Pk Bethel: 2.22 TR Pk Grad: 20.00 RA Press: 3.00 RVSP: 23.00 Great Vessels Aorta Sinus of Valsalva: 3.00 2.0-3.5 cm Ao Asc: 3.20 2.1-3.4 cm Pulmonary Valve PV Pk Bethel: 1.00 Peak PV Grad: 4.00 Updated in Other Vendor System with Status of Final Antoni Chapman MD electronically signed on 04/16/2024 2:45:41 PM with status of Final
== END ==
LOC: HO.CARD 09:54
PROVIDERS: PCP Nurse Practitioner Family; Visit Provider Nurse Practitioner Family
DX: I35.0 Nonrheumatic aortic (valve) stenosis (principal)
CPT/HCPCS: 93306

== ENCOUNTER → 2024-04-15 09:57 | Outpatient (BNV) | payer MEDICARE, OTHER, SELFPAY | PROVIDERS: PCP Nurse Practitioner Family; Visit Provider Internal Medicine | DX: I35.0 Nonrheumatic aortic (valve) stenosis (principal); I35.8 Other nonrheumatic aortic valve disorders; I42.2 Other hypertrophic cardiomyopathy | CPT/HCPCS: 93306 ==

== ENCOUNTER 2024-04-22 14:25 | Outpatient (REF) | payer SELFPAY | END 2024-04-22 14:26 | disposition home or self-care (01) | LOC: HO.HAP 14:25 | PROVIDERS: Visit Provider Nurse Practitioner Family | DX: Z13.89 Encounter for screening for other disorder (principal) ==

== ENCOUNTER 2024-04-22 15:11 | Outpatient (AMB) | payer MEDICARE, OTHER, SELFPAY ==
--- NOTE | 2024-04-22 15:15 | AM.OFFWIN_ITS ---
Intake Vital Signs 04/22/24 15:16 Height 5 ft 1 in Weight 175 lb BMI 33.1 BP 124/70 Blood Pressure Location Rt brachial Position Sitting Pulse 63 Pulse Source Pulse Oximeter Temp 98.4 F Temp Source Oral Pulse Oximetry (%) 98 Oxygen Delivery Method Room Air Intake Visit Reasons: Both Ears flushed Intake Note: pt c/o impacted cerumen bilateral Patient Tobacco Use Status: Former Tobacco user Allergies cephalexin [From Keflex] Allergy (Severe, Verified 04/22/24 15:16) Swelling ciprofloxacin [From Cipro] Allergy (Severe, Verified 04/22/24 15:16) eye swelling penicillin G Allergy (Severe, Verified 04/22/24 15:16) Angioedema Penicillins Allergy (Severe, Verified 04/22/24 15:16) ANGIOEDEMA gabapentin Allergy (Verified 04/22/24 15:16) Unknown meloxicam Allergy (Verified 04/22/24 15:16) Unknown NSAIDS (Non-Steroidal Anti-Inflamma Adverse Reaction (Verified 04/22/24 15:16) Unknown Sulfacet-R Allergy (Severe, Uncoded 04/22/24 15:16) Swelling Do you need a note to return to daycare/school/sports/work: No HPI HPI Comments History of Present Illness Details 78 y/o female patient who presents to [facility] in clinic with c/o bilateral cerumen impaction. [facility], [facility] Medical History Elevated cholesterol Breast cancer Hx of radiation therapy Depression Spinal stenosis Degenerative disc disease, cervical Arthritis Back pain HTN (hypertension) Diabetes Disc degeneration, lumbar Lumbar radiculopathy Osteoarthritis Breast cancer, left Surgical History Hx of bilateral cataract extraction History of knee replacement History of carpal tunnel release of both wrists Hx of cholecystectomy Hx of appendectomy Hx of hysterectomy History of lumpectomy of left breast H/O colonoscopy History of total left knee replacement Social History Housing: House Patient Tobacco Use Status: Former Tobacco user Tobacco use type: Cigarette Years Smoked: 50 years ago e-Cigarette/Vaping Use: Never Used Second Hand Smoke Exposure: No service: No Current occupational status: employed Current occupation: [employer] Current occupational exposures/hazards: No Cognitive needs: No Hearing needs: No Vision needs: Yes Review of Systems Const All systems reviewed & are unremarkable except as noted in HPI and below Physical Exam Vital Signs: Last Vital Signs Temp 98.4 F 04/22/24 15:16 Pulse 63 04/22/24 15:16 BP 124/70 04/22/24 15:16 Pulse Ox 98 04/22/24 15:16 Oxygen Delivery Method Room Air 04/22/24 15:16 BMI result Body Mass Index 33.1 Const General: comfortable and no acute distress Nutritional Appearance: overweight Orientation/consciousness: patient oriented x3 HEENT Head: Yes normocephalic Ears: TM abnormal obstructed by cerumen bilateral and unable to visualize TM bilaterally Neuro General: patient oriented x3, gait normal and moves all extremities Psych Speech and movement: Normal speech and movement present Office Procedures Cerumen Removal From which ear canal was the cerumen removed: bilateral Removal: irrigation Notes: patient tolerated procedure well [id number] Irrigation/Lavage Assessment & Plan Assessment & Plan (1) Cerumen impaction: Code(s): H61.20 - Impacted cerumen, unspecified ear Qualifiers: Laterality: bilateral Qualified Code(s): H61.23 - Impacted cerumen, bilateral Plan: Ordered Bilateral Ear lavage/irrigation. Patient tolerated the procedure well TM clear and intact Ordered Debrox Medications: New carbamide peroxide 6.5% (Debrox) 5 drps otic (ears) BID 15 mL 1RF H61.23 - Impacted cerumen, bilateral Coding Level of Care Code Est Pt Level 4 (85928) Diagnoses Bilateral impacted cerumen H61.23 Laterality: bilateral CPT Codes Office Procedure - CPT: 11343-Gub Irrigation/Lavage ([id number]) Time Spent (min) 20
[2024-04-22 15:16] VITALS: BP 124/70; PULSE 63; TEMP 36.9; O2SAT 98; BMI 33.1
== END 2024-04-22 15:53 | disposition home or self-care (01) ==
PROVIDERS: PCP Nurse Practitioner Family; Visit Provider Nurse Practitioner Family
DX: H61.23 Impacted cerumen, bilateral (principal)
CPT/HCPCS: 69209; 99214

== ENCOUNTER 2024-06-03 14:47 | Outpatient (REF) | payer SELFPAY | END 2024-06-03 14:48 | disposition home or self-care (01) | LOC: HO.HAP 14:47 | PROVIDERS: Visit Provider Nurse Practitioner Family | DX: Z13.89 Encounter for screening for other disorder (principal) ==

== ENCOUNTER 2024-06-04 13:56 | Outpatient (AMB) | payer MEDICARE, OTHER, SELFPAY ==
--- NOTE | 2024-06-04 13:57 | AM.OFFWIN_ITS ---
Intake Vital Signs 06/04/24 13:58 Height 5 ft 1 in Weight 180 lb BMI 34.0 BP 134/86 Blood Pressure Location Rt brachial Position Sitting Pulse 64 Pulse Source Pulse Oximeter Temp 98.0 F Temp Source Oral Pulse Oximetry (%) 98 Oxygen Delivery Method Room Air Intake Visit Reasons: EP wax removal/?ear infection Intake Note: pt c/o impacted cerumen. States cannot use Debrox because it clogs her hearing aids. States steward/[employer] dining car told her she might have an infection. Patient Tobacco Use Status: Former Tobacco user Allergies cephalexin [From Keflex] Allergy (Severe, Verified 06/04/24 13:57) Swelling ciprofloxacin [From Cipro] Allergy (Severe, Verified 06/04/24 13:57) eye swelling penicillin G Allergy (Severe, Verified 06/04/24 13:57) Angioedema Penicillins Allergy (Severe, Verified 06/04/24 13:57) ANGIOEDEMA gabapentin Allergy (Verified 06/04/24 13:57) Unknown meloxicam Allergy (Verified 06/04/24 13:57) Unknown NSAIDS (Non-Steroidal Anti-Inflamma Adverse Reaction (Verified 06/04/24 13:57) Unknown Sulfacet-R Allergy (Severe, Uncoded 06/04/24 13:57) Swelling Do you need a note to return to daycare/school/sports/work: No HPI EP wax removal/?ear infection HPI Details This is a 78-year-old female patient who presents today with request for ear evaluation. She was seen here on 04/22 for cerumen impaction as advised by her steward/[employer] dining car. She had irrigation of both ears done and when she went for refitting of hearing aides recently, her steward/[employer] dining car felt she had TM infections and to have this evaluated. She has been having some b/l tenderness in ears and a lot of yellow discharge on Q-tips when cleaning. Denies fever/chills. [facility] Medical History Elevated cholesterol Breast cancer Hx of radiation therapy Depression Spinal stenosis Degenerative disc disease, cervical Arthritis Back pain HTN (hypertension) Diabetes Disc degeneration, lumbar Lumbar radiculopathy Osteoarthritis Breast cancer, left Surgical History Hx of bilateral cataract extraction History of knee replacement History of carpal tunnel release of both wrists Hx of cholecystectomy Hx of appendectomy Hx of hysterectomy History of lumpectomy of left breast H/O colonoscopy History of total left knee replacement Social History Housing: House Patient Tobacco Use Status: Former Tobacco user Tobacco use type: Cigarette Years Smoked: 50 years ago e-Cigarette/Vaping Use: Never Used Second Hand Smoke Exposure: No service: No Current occupational status: employed Current occupation: [employer] Current occupational exposures/hazards: No Cognitive needs: No Hearing needs: No Vision needs: Yes Review of Systems Const All systems reviewed & are unremarkable except as noted in HPI and below Physical Exam Vital Signs: Last Vital Signs Temp 98.0 F 06/04/24 13:58 Pulse 64 06/04/24 13:58 BP 134/86 06/04/24 13:58 Pulse Ox 98 06/04/24 13:58 Oxygen Delivery Method Room Air 06/04/24 13:58 BMI result Body Mass Index 34.0 Const General: cooperative, healthy appearing, comfortable and no acute distress HEENT Head: Yes normal to inspection Ears: Abnormal EAC present otic discharge purulent on the left, hearing grossly impaired (has hearing aids) bilaterally and TM abnormal wth effusion purulent bilateral and erythematous bilateral General nose exam: Normal external nose present Face and sinus: Yes normal facial exam Neck Neck: Yes no lymphadenopathy Resp Effort & Inspection: normal respiratory effort Auscultation: clear to auscultation bilaterally Cardio Rate: regular rate Rhythm: regular rhythm Skin General skin exam: no rashes or lesions noted Extrem General: Yes capillary refill normal and Yes no clubbing, cyanosis or edema Psych Appearance: grossly normal Mental Status: mental status grossly normal Speech and movement: Normal speech and movement present Office Procedures Cerumen Removal From which ear canal was the cerumen removed: left Removal: irrigation Notes: patient tolerated procedure well, no complications and ear canal clear [id number] Irrigation/Lavage Assessment & Plan Assessment & Plan (1) Bilateral otitis media with effusion: Code(s): H65.93 - Unspecified nonsuppurative otitis media, bilateral Plan: Irrigation of left ear done today in order to visualize TM. Moderate amount of purulent discharge was removed. Bilateral otitis media noted. Multiple antibiotic allergies. It seems she has tolerated Doxy previously - will send rx for this. We reviewed indications, use, possible side effects of medication. She will follow up with her steward/[employer] dining car once infection has resolved. She does not improve with treatment, she can return to the clinic for further evaluation. All questions were answered and patient verbalizes understanding and agrees to plan. Medications: New doxycycline hyclate Take one capsule by mouth twice a day for 7 days. 100 mg PO BID 14 caps 0RF 7 days H65.93 - Unspecified nonsuppurative otitis media, bilateral Coding Level of Care Code Est Pt Level 4 (73588) Diagnoses Bilateral otitis media with effusion H65.93 CPT Codes Office Procedure - CPT: 50634-Fwi Irrigation/Lavage ([id number])
[2024-06-04 13:58] VITALS: BP 134/86; PULSE 64; TEMP 36.7; O2SAT 98; BMI 34.0
== END 2024-06-04 14:48 | disposition home or self-care (01) ==
PROVIDERS: PCP Nurse Practitioner Family; Visit Provider Nurse Practitioner Family
DX: H61.22 Impacted cerumen, left ear (principal)
CPT/HCPCS: 69209; 99214

== ENCOUNTER 2024-06-16 11:31 | Outpatient (REF) | payer MEDICARE, OTHER, SELFPAY ==
[2024-06-16 13:30] LABS: MANUAL DIFF FLAG NO
[2024-06-16 13:44] LABS: Basophils Percent Auto 0.6 % (0-2); Eosinophils Absolute Auto 0.2 X10*3/uL (0.0-0.4); Eosinophils Percent Auto 2.4 % (0-4); Hemoglobin 12.7 g/dl (12.0-16.0); Imm Gran Abs Auto 0.03 X10*3/uL (0.00-0.03); Imm Gran Pct Auto 0.4 % (0.0-0.4); Lymphocytes Percent Auto 13.3 % (20-40); Mean Corpuscular HGB Conc 32.6 g/dl (31.0-35.0); Mean Corpuscular Hemoglobin 32.2 pg (27.0-33.0); Mean Platelet Volume 11.3 fL (9.4-12.3); Monocytes Absolute Auto 0.8 X10*3/uL (0.1-1.2); Monocytes Percent Auto 10.9 % (2-11); Neutrophils Absolute Auto 5.2 x10*3/uL (2.0-8.3); Neutrophils Percent Auto 72.4 % (45-73); Platelet Count 169 X10*3/uL (160-400); Red Blood Count 3.94 X10*6/uL (4.20-5.50); Red Cell Distribution Width 12.4 % (11.0-16.0); White Blood Count 7.1 X10*3/uL (4.8-10.8)
[2024-06-16 14:21] LABS: Alanine Aminotransferase 12 U/L (0-31); Albumin Level 3.8 g/dL (3.5-5.0); Alkaline Phosphatase 80 U/L (39-117); Anion Gap 14 (12-20); Aspartate Amino Transferase 22 U/L (5-31); Bilirubin Total 0.6 mg/dL (0.0-1.0); Blood Urea Nitrogen 22 mg/dL (9-16); Calcium 9.7 mg/dL (8.4-10.2); Carbon Dioxide 24 mmol/L (22-29); Chloride 109 mmol/L (96-108); Cholesterol 184 mg/dL (<200); Estimated Glomerular Filt Rate 50; Glucose Fasting 112 mg/dL (60-99); HDL Cholesterol 51 mg/dL (>40); LDL Cholesterol Calculated 100 mg/dL (<100); Sodium 142 mmol/L (135-145); TSH reflex Free T4 1.96 uIU/mL (0.32-4.0); Total Protein 6.9 g/dL (6.5-8.0); Triglycerides 169 mg/dL (<150)
== END 2024-06-16 11:32 | disposition home or self-care (01) ==
LOC: HO.HMGCLDS 11:31
PROVIDERS: PCP Nurse Practitioner Family; Visit Provider Nurse Practitioner Family
DX: E11.9 Type 2 diabetes mellitus without complications (principal)
CPT/HCPCS: 36415; 80053; 80061; 84443; 85025

== ENCOUNTER 2024-06-17 07:15 | Outpatient (REF) | payer MEDICARE, OTHER, SELFPAY ==
[2024-06-17 13:13] LABS: Appearance Urine Clear; Color Urine Yellow; Glucose Urine UA Negative (Negative); Leukocyte Esterase Urine Negative (Negative); Nitrite Urine Negative (Negative); Specific Gravity - Urine 1.025 (1.005-1.025); UMIC TRIGGER UACC YES; Urine Blood Negative (Negative); Urine Ketones Negative (Negative); Urine Protein 30 (1+) mg/dL (Neg-Trace)
[2024-06-17 13:17] LABS: Bacteria Urine Trace (None Seen); RBC Urine 0-2 /HPF (0-2); Squamous Epithelial Cell Urine 0-2 /HPF (0-2); WBC Urine 0-5 /HPF (0-5)
[2024-06-17 13:44] LABS: Creatinine Urine 122.28 mg/dL; Microalbum/Creatinine Ratio Ur 139.8 ug/mg cr (<30)
== END 2024-06-17 07:16 | disposition home or self-care (01) ==
LOC: HO.HMGCLNP 07:15
PROVIDERS: PCP Nurse Practitioner Family; Visit Provider Nurse Practitioner Family
DX: E11.9 Type 2 diabetes mellitus without complications (principal)
CPT/HCPCS: 81001; 81003; 82043; 82570

== ENCOUNTER 2024-06-18 07:25 | Outpatient (REF) | payer MEDICARE, OTHER, SELFPAY ==
[2024-06-18 14:32] LABS: CDiff Gene PCR NEGATIVE (Negative)
== END 2024-06-18 07:26 | disposition home or self-care (01) ==
LOC: HO.HMGCLNP 07:25
PROVIDERS: PCP Nurse Practitioner Family; Visit Provider Nurse Practitioner Family
DX: R19.7 Diarrhea, unspecified (principal); R11.2 Nausea with vomiting, unspecified
CPT/HCPCS: 87493

== ENCOUNTER 2024-06-22 09:17 | Outpatient (AMB) | payer MEDICARE, OTHER, SELFPAY ==
[2024-06-22 09:18] VITALS: BP 132/78; PULSE 66; O2SAT 98; BMI 33.6
--- NOTE | 2024-06-22 09:18 | AM.OFFVISMDC ---
Intake Vital Signs 06/22/24 09:18 Height 5 ft 1 in Weight 178 lb BMI 33.6 BP 132/78 Blood Pressure Location Rt brachial Position Sitting Pulse 66 Pulse Source Pulse Oximeter Pulse Oximetry (%) 98 Intake Visit Reasons: SWV G0439 Intake Note: pt is here for MWV Litigation Paralegal Required: No Accompanied by: Self / Same As Patient Allergies cephalexin [From Keflex] Allergy (Severe, Verified 06/22/24 09:18) Swelling ciprofloxacin [From Cipro] Allergy (Severe, Verified 06/22/24 09:18) eye swelling penicillin G Allergy (Severe, Verified 06/22/24 09:18) Angioedema Penicillins Allergy (Severe, Verified 06/22/24 09:18) ANGIOEDEMA gabapentin Allergy (Verified 06/22/24 09:18) Unknown meloxicam Allergy (Verified 06/22/24 09:18) Unknown NSAIDS (Non-Steroidal Anti-Inflamma Adverse Reaction (Verified 06/22/24 09:18) Unknown Sulfacet-R Allergy (Severe, Uncoded 06/04/24 13:57) Swelling Do you need a note to return to daycare/school/sports/work: No HPI SWV G0439 HPI Details Pt is here for an SWV. Denies fever, chills, and dizziness. [place]jon of care in scan pile. PPP will be scanned in chart and copy will be given to pt. [facility] Medical History (Reviewed 06/22/24 @ 09:20 by Dimitry Joyce [facility]) Elevated cholesterol Breast cancer Hx of radiation therapy Depression Spinal stenosis Degenerative disc disease, cervical Arthritis Back pain HTN (hypertension) Diabetes Disc degeneration, lumbar Lumbar radiculopathy Osteoarthritis Breast cancer, left Surgical History Hx of bilateral cataract extraction History of knee replacement History of carpal tunnel release of both wrists Hx of cholecystectomy Hx of appendectomy Hx of hysterectomy History of lumpectomy of left breast H/O colonoscopy History of total left knee replacement Social History Housing: House Patient Tobacco Use Status: Former Tobacco user Tobacco use type: Cigarette Years Smoked: 50 years ago e-Cigarette/Vaping Use: Never Used Second Hand Smoke Exposure: No service: No Current occupational status: employed Current occupation: [employer] Current occupational exposures/hazards: No Cognitive needs: No Hearing needs: No Vision needs: Yes Questionnaire Medicare Wellness Checkup [age] What gender do you identify with?: female During the past 4 weeks, how much have you been bothered by emotional problems such as feeling anxious, depressed, irritable, sad or downhearted, and blue?: quite a bit During the past 4 weeks, has your physical & emotional health limited your social activities with family, friends, neighbors, or groups?: quite a bit During the past 4 weeks, how much bodily pain have you generally had?: severe pain During the past 4 weeks, was someone available to help you if you needed & wanted help?: yes, some During the past 4 weeks, what was the hardest physical activity you could do for at least 2 minutes?: light Can you get to places out of walking distance without help? (For eg., can you travel alone on buses, taxis or drive your car?): Yes Can you go shopping for groceries or clothes without someone's help?: No Can you prepare your own meals?: Yes Can you do your housework without help?: No Because of any health problems, do you need the help of another person with your personal care needs such as eating, bathing, dressing or getting around the house?: No Can you handle your own money without help?: Yes During the past 4 weeks, how would you rate your health in general?: good During the past 4 weeks how have things been going for you?: good & bad parts about equal Are you having difficulties driving your car?: no Do you always fasten your seat belt when you are in a car?: yes, usually During past 4 weeks, have you been bothered by the following: never: Sexual problems?, Teeth or denture problems? and Problems using the telephone?, seldom: Falling or dizzy when standing up, sometimes: Tiredness or fatigue? and often: Trouble eating well? Have you fallen 2 or more times in the past year?: No Are you afraid of falling?: Yes Are you a smoker?: no During the past 4 weeks, how many drinks of wine, beer, or other alcoholic beverages did you have?: 1 drink or less per week Do you exercise for about 20 minutes 3 or more times a week?: no, I usually do not exercise this much Have you been given information to help with the following?: yes: Keeping track of your medications? and no: Hazards in your house that might hurt you? How often do you have trouble taking medicines the way you have been told to take them?: I always take medicine as prescribed How confident are you that you can control & manage most of your health problems?: somewhat confident What is your race?: White Mini Mental State Exam (MMSE) Orientation What is the (year) (season) (date) (day) (month)?: year, season, date, day and month Where are we (state) (county) (town or city) (hospital) (floor)?: state, county, town or city, hospital/clinic and floor Registration Name of 3 unrelated objects clearly and slowly, then ask patient to repeat all 3 of them. (1st repeat determines score. Make sure they can repeat all three): object 1, object 2 and object 3 Attention & Calculation (CHOOSE ONE) Spell WORLD backwards (DLROW): 5 letters Recall Ask patient to repeat the 3 items from question #3.: object 1, object 2 and object 3 Language Show patient a wristwatch & ask what it is. Repeat for pencil.: watch and pencil Ask the patient to repeat the phrase 'No ifs, ands, or buts' after you.: correct Ask the patient to 'take a piece of paper with their right hand' 'fold paper in half' 'place paper on floor': take paper in right hand, fold paper in half and place paper on floor Print the sentence 'CLOSE YOUR EYES' on a piece. If patient actually closes eyes then score.: followed written direction Give patient a blank piece of paper & ask to write a sentence. Score if it contains a noun & verb.: sentence contains subject and verb Ask patient to copy figure of intersecting pentagons exactly. Score if all 10 angles & 2 intersects are included.: all 10 angles present & 2 are intersected Score Score: 30 Activity of Daily Living Bathing - sponge bath, tub bath or shower: receives no assistance (gets in/out by self, if usual bathing means Dressing - getting clothes from closets & drawers, including inner/outer garments & fasteners.: gets clothes & gets completely dressed without help Toileting - going to the 'toilet room' for urine/bowel elimination & cleaning self/arranging clothes: goes to toilet room, cleans self, arranges clothes without help Transfer: moves in & out of bed and chair without help (may use support object) Continence: controls urination/bowel movements completely by self Feeding: feeds self without help Total Score: 0 Information obtained from: patient Using telephone: independent Traveling: independent Shopping: independent Preparing meals: independent Housework: independent Taking medicine: independent Managing money: independent PHQ-9 Over the last 2 weeks, how often have you been bothered by any of the following problems? 1. Little interest or pleasure in doing things: nearly every day 2. Feeling down, depressed, or hopeless: nearly every day 3. Trouble falling or staying asleep, or sleeping too much: nearly every day 4. Feeling tired or having little energy: nearly every day 5. Poor appetite or overeating: nearly every day 6. Feeling bad about yourself - or that you are a failure or have let yourself or your family down: nearly every day 7. Trouble concentrating on things, such as reading the newspaper or watching television: not at all 8. Moving or speaking so slowly that other people could have noticed. Or the opposite - being so fidgety or restless that you have been moving around a lot more than usual: not at all 9. Thoughts that you would be better off or of hurting yourself in some way: not at all Total score: 18 Depression Screening Interpretation: Positive (denies any si or hi) Depression Screening Follow-up: Declines treatment Depression Screening Done: Yes 85545 - PHQ-9 Billing: Yes Source: Developed by Drs. Taiwo Banegas, Pat Benoit, Nestor Zimmer and colleagues, with an educational valarie from [employer] LESLIE-7 AMB Questionnaire LESLIE-7 Date LESLIE - 7 assessed: 06/22/24 Feeling nervous, anxious, or on edge: 0 = Not at all Not being able to stop or control worryin = Not at all Worrying too much about different things: 0 = Not at all Trouble relaxin = Several days Being so restless that it is hard to sit still: 0 = Not at all Becoming easily annoyed or irritable: 0 = Not at all Feeling afraid as if something awful might happen: 0 = Not at all Total LESLIE-7 score (0-4 normal; 5-9 mild; 10-14 moderate; 15-21 severe): 1 Source: Developed by Drs. Taiwo Banegas, Pat Benoit, Nestor Zimmer and colleagues, with an educational valarie from [employer] LESLIE-7 Assessment Billing LESLIE-7 Assessment Tool: LESLIE-7 Assessment 15009 Review of Systems Const Reports as per HPI Physical Exam Vital Signs: Last Vital Signs Pulse 66 06/22/24 09:18 BP 132/78 06/22/24 09:18 Pulse Ox 98 06/22/24 09:18 BMI result Body Mass Index 33.6 Const General: cooperative Orientation/consciousness: patient oriented x3 Neuro Other: - romberg, can tandem walk, can walk and turn, can rise from sitting to standing, passed whisper test General: patient oriented x3 Psych Appearance: grossly normal Mental Status: mental status grossly normal Speech and movement: Normal speech and movement present Affect: normal affect Attitude: cooperative Thought process: Normal thought process present Thought content: Normal thought content present Insight: Good insight present (Psych) Judgement: Good judgement present (Psych) Results AMB Hemoglobin A1c AMB Hemoglobin A1c 5.7 % Last Edit by Dimitry oJyce CMA on 06/22/24 09:43 Results Reviewed Results Reviewed: Laboratory Last Values Hgb A1c (Clinic) 5.7 % (4.0-6.0) 06/22/24 09:31 Assessment & Plan Assessment & Plan (1) Encounter for subsequent annual wellness visit (AWV) in Medicare patient: Code(s): Z00.00 - Encounter for general adult medical examination without abnormal findings Plan The patient agreed to the use of a medical director occupational health for this encounter. Scribed for [facility] by Olivia Cevallos medical director occupational health, on 06/22/2024 at 09:30 EST. Orders: Orders AMB Hemoglobin A1c Today Z13.9 - Encounter for screening, unspecified Quality Reporting (2019) Depression/Bipolar (159/160/161/177) PHQ-9: Total score: 18 Coding Level of Care Code Medicare Subsequent (G0439) Diagnoses Encounter for subsequent annual wellness visit (AWV) in Medicare patient Z00.00 CPT Codes Advance Care Planning - Time spent: 1-15 minutes, on File ([id number]) Additional Codes LESLIE-7 Assessment Billing - LESLIE-7 Assessment Tool: LESLIE-7 Assessment 46190 ([id number]) Advance Care Planning Forms completed: Health Care Proxy (pt's sister, pt reports she has a copy of this. If she can get us a copy), MOLST (pt reports it was done) and Living will (done) Time spent: 1-15 minutes, on File Actual minutes spent: 15
== END 2024-06-22 10:18 | disposition home or self-care (01) ==
PROVIDERS: PCP Nurse Practitioner Family; Visit Provider Nurse Practitioner Family
DX: Z00.00 Encounter for general adult medical examination without abnormal findings (principal); Z13.9 Encounter for screening, unspecified

== ENCOUNTER → 2024-06-22 09:17 | Outpatient (BNVA) | payer MEDICARE, OTHER, SELFPAY | PROVIDERS: PCP Nurse Practitioner Family; Visit Provider Nurse Practitioner Family | DX: Z00.00 Encounter for general adult medical examination without abnormal findings (principal); I10 Essential (primary) hypertension; E11.9 Type 2 diabetes mellitus without complications | CPT/HCPCS: 83036; 96127 ==

== ENCOUNTER 2024-07-09 10:38 | Outpatient (REF) | payer MEDICARE, OTHER, SELFPAY ==
--- NOTE | 2024-07-09 13:32 | MHC.AU.HA3 ---
Hearing Instrument Follow-Up- Binaural Date of Visit: 07/09/24 Right Ear: Make, Model, Color, Serial Number: Pedrito Colladoo P70 ITCs SN: [id number] Color: [place] Overlock Operator Repair Warranty: 01/01/2027 Overlock Operator Loss and Damage Warranty: 01/01/2027 [facility] Service Plan: 12/16/2024 Battery Size: 312 Type of Wax Guard: CeruStop Dispensed By: [facility] Date of Fittin Left Ear: Make, Model, Color, Serial Number: Pedrtio Virto P70 ITCs SN: [id number] Color: [place] Overlock Operator Repair Warranty: 01/01/2027 Overlock Operator Loss and Damage Warranty: 01/01/2027 [facility] Service Plan: 12/16/2024 Battery Size: 312 Type of Wax Guard: CeruStop Dispensed By: [facility] Date of Fittin12/17/2023 Follow-Up Summary: Kayleen reports her ear infection/ ear wax situation is all cleared up now. She notes going to walk in clinic after last visit here and having ears cleaned again and getting some drops. She notes having to change wax guards very frequently throughout all of these issues with the wax. She reports the right aid is now not working at all. Otoscopy reveals waxy coating on canal edges and on TM Au. Kayleen reports she stopped using drops, has been using q-tip. Advised to not use q-tips, give the remaining wax a chance to work itself out of the ear canals. Cleaned and checked aids, replaced wax guards, ran through dehumidifier, vacuumed fadi ports, vacuumed supplier quality engineer port on the right. Listening check positive left. No improvement right. VC works, controls left, but no amplification or system sounds. Aid needs to go to methodologist for repair. Kayleen is heading to [facility] for one month tomorrow. Set the phone connection to go through the left aid so she has access to see and streaming without the right. Made an appt. to bead picker aid when she is back from vacation. Recommendations: Recommendations (Other): Return as scheduled. Diagnosis Code(s): Primary Diagnosis: H90.3 Bilateral Sensorineural Hearing Loss Signature: Provider: Jovanny Dickens, [facility]
== END 2024-07-09 10:39 | disposition home or self-care (01) ==
LOC: HO.HAP 10:38
PROVIDERS: Visit Provider Nurse Practitioner Family
DX: Z13.89 Encounter for screening for other disorder (principal)

== ENCOUNTER 2024-08-12 09:41 | Outpatient (REF) | payer SELFPAY ==
--- NOTE | 2024-08-12 10:38 | MHC.AU.HA3 ---
Hearing Instrument Follow-Up- Binaural Date of Visit: 08/12/24 Right Ear: Felipe, Model, Color, Serial Number: Pedrito Colladoo P70 ITCs SN: [id number] Color: [place] Music Intern Repair Warranty: 01/01/2027 Music Intern Loss and Damage Warranty: 01/01/2027 [facility] Service Plan: 12/16/2024 Battery Size: 312 Kiln Feeder/Slim Tube: Earmold/Dome/CShell/SlimTip: Type of Wax Guard: CeruStop Dispensed By: [facility] Date of Fittin Left Ear: Felipe, Model, Color, Serial Number: Pedrito Colladoo P70 ITCs SN: [id number] Color: [place] Music Intern Repair Warranty: 01/01/2027 Music Intern Loss and Damage Warranty: 01/01/2027 [facility] Service Plan: 12/17/2023 Battery Size: 312 Kiln Feeder/Slim Tube: Earmold/Dome/CShell/SlimTip: Type of Wax Guard: CeruStop Dispensed By: [facility] Date of Fittin12/17/2023 Follow-Up Summary: Here to pick up man right aid from repair. Reports left aid hasn't been working for weeks, started having a problem when she arrived in [facility], could not reconnect hearing aid with phone and thought that this was causing her hearing aid not to work. Checked aid, found wax guard clogged. Listening check positive after cleaning and replacing wax guard. Kayleen reported her ears are improved from her previous ear infection and wax situation. Otoscopy reveals thin film of wax As, clear Ad. Paired aids together in [employer]. Paired aids on Kayleen's see. All working normally now. Discussed end of service plan November 2024. Recommendations: Recommendations: Hearing instrument follow-up or maintenance as needed. Diagnosis Code(s): Primary Diagnosis: H90.3 Bilateral Sensorineural Hearing Loss Signature: Provider: Jovanny Dickens, [facility]
== END 2024-08-12 09:42 | disposition home or self-care (01) ==
LOC: HO.HAP 09:41
PROVIDERS: Visit Provider Nurse Practitioner Family
DX: Z13.89 Encounter for screening for other disorder (principal)

== ENCOUNTER 2024-08-24 11:01 | Outpatient (REF) | payer SELFPAY ==
--- OUTSIDE RECORDS SUMMARY | 2024-08-31 12:59 | XMS_ITS ---
Author Organization [facility] Address [address] [place] [address] Care Team Providers Care Vice Chairman Name Role Phone CHANDU CHISHOLM Primary Care Provider Taiwo Azar Unavailable [phone] ALLERGIES Allergen (clinical drug ingredient) Drug/Non Drug Allergy documented on EMR Reaction Allergy Type Onset Date Status meloxicam Meloxicam Unknown Drug Allergy Active gabapentin Gabapentin Unknown Drug Allergy Activ e penicillin G Penicillin G Sodium Unknown Drug Allergy Active ciprofloxacin Cipro Unknown Drug Allergy Act jean carlos k flex (uncoded) Unknown Allergy Act jean carlos Substance with sulfonamide structure and antibacterial mechanism of action (substance) Sulfa Antibiotics Unknown Drug Allergy Active REASON FOR VISIT Patient presents today for gerd MEDICATIONS Medication SIG (Take, Route, Frequency, Duration) Notes Start Date End Date Status Levothyroxine Sodium 75 MCG 1 tablet on an empty stomach in the morning Orally Once a day for 30 day(s) Active Imodium A-D 2 MG 1 or 2 tablets Orall y Every 4 to 6 hours as needed for diarrhea 02/25/2024 Active Januvia 100 MG 1 tablet Orally Once a day for 30 day(s) Active Lantus 100 UNIT/ML 20-25 units Subcutaneous once a day Active Atorvastatin Calcium 10 MG 1 tablet Orally Once a day for 30 day(s) Active Ondansetron 4 MG 1 tablet on the tong ue and allow to dissolve Orally Every 4 to 6 hours as needed for nausea for 30 day(s) 02/25/2024 Active Omeprazole 20 MG 1 Orally Once every morning 02/25/2024 Active buPROPion HCl 100 MG 1 tablet Orally Twi ce a day for 30 day(s) Active potassium 1 tab Oral for 14 days Active Carvedilol 25 MG 1 tablet with food Orally Twice a day for 30 day(s) Active Magnesium 300 MG 1 capsule with a michael l Orally Once a day for 30 day(s) Not-Taking Calcium 1 tab Oral for 14 days Active Gabapentin 100 MG Oral for 30 Active SOCIAL HISTORY Tobacco Use: Social History Observation Description Date Details (start date - stop date) Former Smoker NA - NA Sex Assigned At : Social History Observation Description Sex Assigned At Unknown Tobacco Use/Smoking Question Answer Notes Patient is a former smoker Alcohol Screen Question Answer Notes Did you have a drink contain ing alcohol in the past year? Yes How often did you have a dri nk containing alcohol in the past year? 2 to 4 times a month (2 points) How many drinks did you have on a typical day when you were drinking in the past year? 1 or 2 drinks (0 point) How often did you have 6 or more drinks on one occasion in the past year? Never (0 point) Points 2 Interpretation Negative PROBLEMS Problem Type ICD Code Onset Dates Problem Status W/U Status Risk SNOMED Code Notes Problem Chronic GERD (K21.9) Active confirmed Gastroesophagea l reflux disease (disorder) (335947843) VITAL SIGNS BMI 32.87 kg/m2 08/10/2024 Blood pressure systolic 00 mm Hg 08/10/20 24 Blood pressure diastolic 00 mm Hg 024 Height 61 in 08/10/2024 Weight 174 lbs 08/10/2024 Encounters Encounter Location Date Provider Diagnosis [facility] [address] [place] [address] 08/10/2024 Taiwo Mcintosh Diarrhea R19.7 ; Nausea R11.0 and Chronic GERD K21.9 ASSESSMENTS Encounter Date Diagnosis Assessment Notes Treatment Notes Treatment Clinical Notes 08/10/2024 Diarrhea (ICD-10 - R19.7) 08/10/2024 Nausea (ICD-10 - R11.0) 08/10/2024 Chronic GERD (ICD-10 - K21.9) PLAN OF TREATMENT Medication Medication Name Sig Start Date Stop Date Notes Imodium A-D 2 MG 1 or 2 tablets Orall y Every 4 to 6 hours as needed for diarrhea 02/25/2024 Ondansetron 4 MG 1 tablet on the tong ue and allow to dissolve Orally Every 4 to 6 hours as needed for nausea for 30 day(s) 02/25/2024 Omeprazole 20 MG 1 Orally Once every morning 02/25/2024 Next Appt Details Follow Up: prn, Reason: Progress Notes * Examination Category Sub-Category Detail Notes General Examination GENERAL APPEARANCE: pleasant , well nourished, well developed, in no acute distress HEAD: EYES: sclera non-icteric EARS: NOSE: THROAT: NECK/THYROID: no cervical lymphade nopathy, neck supple HEART: S1, S2 normal CHEST: LUNGS: clear to auscultatio n bilaterally ABDOMEN: normal bowel sounds, no guarding or rigidity, no guarding or rigidity, no masses palpable, soft, nontender, nondistended NEUROLOGIC: alert and oriented SKIN: nonjaundiced, no spi dash angiomata EXTREMITIES: no edema PERIPHERAL PULSES: BACK: BREASTS: MUSCULOSKELETAL: MALE GENITOURINARY: LYMPH NODES: RECTAL EXAM: FEMALE GENITOURINARY: ORAL CAVITY: mucosa moist
--- OUTSIDE RECORDS SUMMARY | 2024-08-31 13:00 | XMS_ITS ---
Author Organization [facility] Address [address] [place] [address] Care Team Providers Care Tap Puller Name Role Phone CHANDU CHISHOLM Primary Care Provider Taiwo Azar [phone] Encounters Encounter Location Date Provider Diagnosis [facility] [address] [place] [address] 03/29/2024 Taiwo Mcintosh PLAN OF TREATMENT No Information
--- OUTSIDE RECORDS SUMMARY | 2024-08-31 13:00 | XMS_ITS ---
Author Organization [facility] Address [address] [place] [address] Care Team Providers Care Home Health Care Physician Name Role Phone CHANDU CHISHOLM Primary Care Provider Taiwo Azar Unavailable [phone] REASON FOR VISIT diarrhea,wt loss,nausea PROBLEMS Problem Type ICD Code Onset Dates Problem Status W/U Status Risk SNOMED Code Notes Problem Diverticulosis of large intestine without perforation or abscess without bleeding (K57.30) Active confirmed Diverticul ar disease of colon (375878321) Encounters Encounter Location Date Provider Diagnosis [facility] Outpatient [address] [place], [place] [id number] 03/26/2024 Taiwo Mcintosh Diarrhea R19.7 ; W eight loss R63.4 ; Diverticulosis of large intestine without perforation or abscess without bleeding K57.30 ; Other hemorrhoids K64.8 ; Nausea R11.0 and Hiatal hernia K44.9 ASSESSMENTS Encounter Date Diagnosis Assessment Notes Treatment Notes Treatment Clinical Notes 03/26/2024 Diarrhea (ICD-10 - R19.7) 03/26/2024 Weight loss (ICD-10 - R63.4) 03/26/2024 Diverticulosis of large intestine without perforation or abscess without bleeding (ICD-10 - K57.30) 03/26/2024 Other hemorrhoids (ICD-10 - K64.8) 03/26/2024 Nausea (ICD-10 - R11.0) 03/26/2024 Hiatal hernia (ICD-1 0 - K44.9) PLAN OF TREATMENT No Information
--- OUTSIDE RECORDS SUMMARY | 2024-08-31 13:00 | XMS_ITS | Patient Health Record ---
Author Organization [facility] Address [address] [place] [address] Care Team Providers Care Automotive Painter Name Role Phone CHANDU CHISHOLM Primary Care Provider Taiwo Azar [phone] ALLERGIES Allergen (clinical drug ingredient) Drug/Non Drug [...] (substance) Sulfa Antibiotics Unknown Drug Allergy Active RESULTS Component Value Reference Range Notes Giardia Ag Stool EIA Reviewed date:03/15/2024 10:33:39 PM Interpretation: Performing Lab:[address] [address] Notes/Report: Giardia Ag Stool EIA SEE NOTE GIARDIA AG, EIA, STOOL Micro Number: [id number] Test Status: Final Specimen Source: Stool Specimen Quality: Adequate Giardia Result 1: Not Detected Reference Range: Not Detected NOTE: Due to intermittent shedding, one negative sample does not necessarily rule out the presence of a parasitic infection. THIS TEST WAS PERFORMED AT: [facility] [address] [place] [phone] DESTINY AUGUSTE MD Calprotectin, Fecal Reviewed date:03/06/2024 01:39:27 PM Interpretation: Performing Lab:[address] [address] Notes/Report: Calprotectin, Fecal 12 Reference Range: <50 Normal 50-120 Borderline >120 Elevated Calprotectin in Crohn's disease and ulcerative colitis can be five to several thousand times above the reference population (50 mcg/g or less). Levels are usually 50 mcg/g or less in healthy patients and with irritable bowel syndrome. Repeat testing in 4-6 weeks is suggested for borderline values. THIS TEST WAS PERFORMED AT: [facility] [address] [place] [address] TERRELL YU MD,PHD,TRIXIE Ova and Parasite Reviewed date:03/15/2024 10:37:24 PM Interpretation: Performing Lab:[address] [address] Notes/Report: Ova and Parasite SEE NOTE OVA AND PARASITES, CONC AND PERM SMEAR Micro Number: [id number] Test Status: Final Specimen Source: Specimen Quality: CONCENTRATION 1: No ova or parasites seen TRICHROME 1: No ova or parasites seen Routine Ova and Parasite exam may not detect some parasites that occasionally cause diarrheal illness. Cryptosporidium Antigen and/or Cyclospora and Isospora Exam may be ordered to detect these parasites. One negative sample does not necessarily rule out the presence of a parasitic infection. For additional information, please refer to https://education.Mailjet/faq/TXS630 (This link is being provided for informational/ educational purposes only.) THIS TEST WAS PERFORMED AT: [facility] [address] MORA LONDON MD GI PANEL Reviewed date:02/28/2024 01:39:07 PM Interpretation: Performing Lab:[address] [address] Notes/Report: Campylobacter Not Detected Not Detect. Plesiomonas shigelloides Not Detected Not Detect. Salmonella Not Detected Not Detect. Vibrio Not Detected Not Detect. Vibrio Cholerae Not Detected Not Detect. Yersinia enterocolitica Not Detected Not Detect. E. coli EAEC Not Detected Not Detect. E. coli EPEC Not Detected Not Detect. E. coli ETEC Not Detected Not Detect. E. coli STEC Not Detected Not Detect. E. coli O157 Not applicable Not Detect. E. coli containing the O157 antigen are a subset of Shiga-like toxin-producing E. coli (STEC). Shigella sp./EIEC Not Detected Not Detect. Cryptosporidium Not Detected Not Detect. Cyclospora cayetanensis Not Detected Not Detect. Entamoeba histolytica Not Detected Not Detect. Giardia lamblia Not Detected Not Detect. Adenovirus F 40/41 Not Detected Not Detect. Astrovirus Not Detected Not Detect. Norovirus GI/GII Not Detected Not Detect. Rotavirus A Not Detected Not Detect. Sapovirus Not Detected Not Detect. All results must be correlated with clinical findings. Negative results do not exclude the possibility of gastrointestinal infection and should not be used as the sole basis for diagnosis, treatment, or other management decisions. Virus, bacteria, and parasite nucleic acid may persist in vivo independently of organism viability. Additionally, some organisms may be carried symptomatically. Detection of organism targets does not imply that the corresponding organisms are infectious or are the causative agents for clinical symptoms. There is a risk of false negative values due to the presence of sequence variants in the gene targets of the assay, amplification inhibitors in specimens, or inadequate numbers of organisms for amplification. The identification of several diarrheagenic E. coli pathotypes has historically relied upon phenotypic characteristics. This panel targets genetic determinants characteristic of most pathogenic strains, but may not detect all strains having phenotypic characteristics of a pathotype. The performance of this test has not been established for monitoring treatment of infection with any of the panel organisms. This assay is performed by Multiplexed PCR, utilizing the [employer] Array. Complete Blood Count Auto Di ff Reviewed date:02/26/2024 11:50:55 PM Interpretation: Performing Lab:[facility], [address] [place] [phone] Notes/Report: White Blood Count 5.6 4.8-10.8 X10*3/uL Red Blood Count 3.61 4.20-5.50 X10*6/uL Hemoglobin 11.9 12.0-16.0 g/dl Hematocrit 34.5 37.0-47.0 % Mean Corpuscular Volume 95.6 80.0-98.0 fL Mean Corpuscular Hemoglobin 33.0 27.0-33.0 pg Mean Corpuscular HGB Conc 34.5 31.0-35.0 g/dl Red Cell Distribution Width 14.6 11.0-16.0 % Platelet Count 270 160-400 X10*3/uL Mean Platelet Volume 9.6 9.4-12.3 fL Neutrophils Percent Auto 60.7 45-73 % Imm Gran Pct Auto 0.5 0.0-0.4 % Lymphocytes Percent Auto 23.9 20-40 % Monocytes Percent Auto 11.3 2-11 % Eosinophils Percent Auto 3.1 0-4 % Basophils Percent Auto 0.5 0-2 % NRBC Pct Auto 0.0 0.0-0.2 /100WBC Neutrophils Absolute Auto 3.4 2.0-8.3 x10*3/u L Imm Gran Abs Auto 0.03 0.00-0.03 X10*3/uL Lymphocytes Absolute Auto 1.3 1.2-4.9 X10*3/u L Monocytes Absolute Auto 0.6 0.1-1.2 X10*3/uL Eosinophils Absolute Auto 0.2 0.0-0.4 X10*3/u L Basophils Absolute Auto 0.0 0.0-0.2 X10*3/uL NRBC Abs Auto 0.000 0.0-0.012 X10*3/uL Erythrocyte Sedimentation Ra te Reviewed date:02/26/2024 11:55:54 PM Interpretation: Performing Lab:[address] [address] Notes/Report: Erythrocyte Sedimentation Rate 26 0-20 MM/HR Patients with polycythemia and many hemoglobin abnormalities may have depressed sed rates whereas patients with anemia may have elevated sed rates. Liver Panel Reviewed date:02/26/2024 11:51:08 PM Interpretation: Performing Lab:[facility], [address] [place] [address] Notes/Report: Bilirubin Total 0.7 0.0-1.0 mg/dL Bilirubin Direct 0.2 0.0-0.5 mg/dL Aspartate Amino Transferase 14 5-31 U/L Alanine Aminotransferase 10 0-31 U/L Total Protein 6.5 6.5-8.0 g/dL Albumin Level 3.9 3.5-5.0 g/dL Alkaline Phosphatase 77 39-117 U/L Basic Metabolic Panel Reviewed date:02/28/2024 01:38:31 PM Interpretation: Performing Lab:[address] [address] Notes/Report: Sodium 143 135-145 mmol/L Potassium 3.2 3.3-5.1 mmol/L Chloride 112 96-108 mmol/L Carbon Dioxide 24 22-29 mmol/L Anion Gap 10 12-20 Blood Urea Nitrogen 22 9-16 mg/dL Creatinine 0.94 0.5-1.4 mg/dL Estimated Glomerular Filt Rate 58 NOTE: For -Afghan individuals, multiply the result by 1.210. Chronic Kidney Disease: Estimated GFR < 60 mL/min/1.73m2 Severe Kidney Disease: Estimated GFR < 15 mL/min/1.73m2 Glucose Random 121 60-115 mg/dL Calcium 9.7 8.4-10.2 mg/dL C Reactive Protein Reviewed date:02/26/2024 11:53:14 PM Interpretation: Performing Lab:[facility], [address] [place] [phone] Notes/Report: C Reactive Protein 0.13 < or = 0.50 mg/dL Immunoglobulin A Reviewed date:03/01/2024 11:35:45 PM Interpretation: Performing Lab:[facility], [address] [place] [phone] Notes/Report: Immunoglobulin A 247 70-320 mg/dL THIS TEST WAS PERFORMED AT: [facility] [address] [place] [phone] DESTINY AUGUSTE MD Transglutaminase Ab IgG Reviewed date:03/01/2024 11:34:46 PM Interpretation: Performing Lab:[facility], [address] [place] [address] Notes/Report: Transglutaminase Ab IgG <1.0 Value Interpretation ----- <15.0 Antibody not detected > or = 15.0 Antibody detected THIS TEST WAS PERFORMED AT: [facility] [address] [place] [phone] DESTINY AUGUSTE MD Transglutaminase IgA Reviewed date:03/01/2024 11:34:36 PM Interpretation: Performing Lab:[facility], [address] [place] [phone] Notes/Report: Transglutaminase IgA <1.0 Value Interpretation ----- <15.0 Antibody not detected > or = 15.0 Antibody detected THIS TEST WAS PERFORMED AT: [facility] [address] [place] [phone] DESTINY AUGUSTE MD Gliadin Ab Panel Reviewed date:03/01/2024 11:34:29 PM Interpretation: Performing Lab:[facility], [address] [place] [address] Notes/Report: Gliadin Deamidated IgA Ab <1.0 Value Interpretation ----- <15.0 Antibody not detected > or = 15.0 Antibody detected Gliadin Deamidated IgG Ab <1.0 Value Interpretation ----- <15.0 Antibody not detected > or = 15.0 Antibody detected THIS TEST WAS PERFORMED AT: [facility] [address] [place] [phone] DESTINY AUGUSTE MD Endomysial IgA rflx Titer Reviewed date:03/01/2024 11:34:22 PM Interpretation: Performing Lab:[facility], [address] [place] [phone] Notes/Report: Endomysial IgA Antibody Negative Negative THIS TEST WAS PERFORMED AT: [facility] [address] DARRELL WESTBROOK MD,PHD Endomysial Titer TNP CDiff Gene PCR Reviewed date:02/28/2024 01:04:04 PM Interpretation: Performing Lab:[facility], [address] [place] [phone] Notes/Report: CDiff Gene PCR NEGATIVE Negative If C. difficile strongly suspected despite one negative test, a second test may be sent vs. empiric treatment for C. difficile infection. Prothrombin Time INR Reviewed date:03/27/2024 09:51:04 PM Interpretation: Performing Lab:[facility], [address] [place] [phone] Notes/Report: Prothrombin Time 11.0 11.1-13.3 SEC INTERNATIONAL NORM RATIO 0.9 0.9-1.1 INTERNATIONAL NORMALIZED RATIO (INR) REFERENCE RANGES Reference Range For patients not on anticoagulant therapy: 0.9 - 1.1 INR ranges for oral anticoagulant therapy: For prevention and treatment of venous thrombosis and pulmonary embolism: 2.0 - 3.0 For acute myocardial infarction with aspirin therapy: 2.0 - 3.0 For acute myocardial infarction without aspirin therapy: 3.0 - 4.0 For patients with mechanical prosthetic heart valves: 2.5 - 3.5 Electrolytes Reviewed date:03/27/2024 09:50:56 PM Interpretation: Performing Lab:[facility], [address] [place] [phone] Notes/Report: Sodium 139 135-145 mmol/L Potassium 3.7 3.3-5.1 mmol/L Chloride 109 96-108 mmol/L Carbon Dioxide 20 22-29 mmol/L Anion Gap 14 12-20 Glucose, Whole Blood Reviewed date:03/27/2024 09:50:45 PM Interpretation: Performing Lab:[facility], [address] [place] [phone] Notes/Report: Glucose, Whole Blood 85 60-115 mg/dL METER # : [id number] Pathology Reviewed date:08/10/2024 10:51:18 AM Interpretation: Performing Lab:[facility], [address] [place] [phone] Notes/Report: REASON FOR REFERRAL No Information MEDICATIONS Medication SIG (Take, Route, Frequency, Duration) Notes Start Date End Date Status Imodium A-D 2 MG 1 or 2 tablets Orall y Every 4 to 6 hours as needed for diarrhea 02/25/2024 Active Levothyroxine Sodium 75 MCG 1 tablet on [...] 1 tab Oral for 14 days Active Magnesium 300 MG 1 capsule with a michael l Orally Once a day for 30 day(s) Not-Taking Calcium 1 tab Oral for 14 days Active Gabapentin 100 MG Oral for 30 Active Januvia 100 MG 1 tablet Orally Once a day for 30 day(s) Active Lantus 100 UNIT/ML 20-25 units Subcutaneous once a day Active Atorvastatin Calcium 10 MG 1 tablet Orally Once a day for 30 day(s) Active Carvedilol 25 MG 1 tablet with food Orally Twice a day for 30 day(s) Active IMMUNIZATIONS Vaccine Route Administration Date Status Comme nts Influenza Unknown 05/20/2019 Administered Influenza Unknown 07/15/2023 Administered SOCIAL HISTORY Tobacco Use: Social History Observation [...] W/U Status Risk SNOMED Code Notes Problem Hypertension, unspecified type (I10) Active confirmed 43687361 Problem Encounter for screening for malignant neoplasm of colon (Z12.11) Active confirmed 224353456 Problem Preprocedural examination (Z01.818) Active confirmed 503344816841960 Problem Encntr long-term NSAID use (Z79.1) Active confirmed 117404687 Problem Nausea (R11.0) Active confirmed Nausea (853729876) Problem Diarrhea (R19.7) Active confirmed Diarr hea (03408818) Problem Weight loss (R63.4) Active confirmed Weight loss (468149346) Problem Diverticulosis of large intestine without perforation or abscess without bleeding (K57.30) Active confirmed Diverticul ar disease of colon (261287351) Problem Chronic GERD (K21.9) Active confirmed Gastroesophagea l reflux disease (disorder) (111780201) VITAL SIGNS Temperature 96.9 degrees Fahrenheit 02/25/2024 Blood pressure diastolic 00 mm Hg 08/10/2024 Height 61 in 08/10/2024 Blood pressure systolic 00 mm Hg 08/10/2024 Weight 174 lbs 08/10/2024 BMI 32.87 kg/m2 08/10/2024 Encounters Encounter Location Date Provider Diagnosis [facility] Outpatient [address] [place] [phone] 03/26/2024 Taiwo Mcintosh Diarrhea R19.7 ; Dallin ght loss R63.4 ; Diverticulosis of large intestine without perforation or abscess without bleeding K57.30 ; Other hemorrhoids K64.8 ; Nausea R11.0 and Hiatal hernia K44.9 [facility] [address] [place] [address] 02/25/2024 Taiwo Mcintosh Nausea R11.0 ; Diarr hea R19.7 and Weight loss R63.4 [facility] [address] [address] 08/10/2024 Taiwo Mcintosh Diarrhea R19.7 ; Yonis sea R11.0 and Chronic GERD K21.9 [facility] [address] [address] 02/26/2024 Taiwo Mcintosh [facility] [address] [address] 03/29/2024 Taiwo Mcintosh ASSESSMENTS Encounter Date Diagnosis Assessment Notes Treatment Notes Treatment Clinical Notes 03/26/2024 Diarrhea (ICD-10 - R19.7) 03/26/2024 Weight loss (ICD-10 - R63.4) 02/25/2024 Diarrhea (ICD-10 - R19.7) Use 1 or 2 over the counter Imodium pills every 6 hours as needed for the diarrhea. 02/25/2024 Nausea (ICD-10 - R11.0) Do not take the Januvia for 2 days before the procedures Take only 1/2 your usual Insulin the night before 08/10/2024 Diarrhea (ICD-10 - R19.7) 08/10/2024 Nausea (ICD-10 - R11.0) 03/26/2024 Diverticulosis of large intestine without perforation or abscess without bleeding (ICD-10 - K57.30) 02/25/2024 Weight loss (ICD-10 - R63.4) 08/10/2024 Chronic GERD (ICD-10 - K21.9) 03/26/2024 Other hemorrhoids (ICD-10 - K64.8) 03/26/2024 Nausea (ICD-10 - R11.0) 03/26/2024 Hiatal hernia (ICD-10 - K44.9) 02/25/2024 Other I will send ove r 2 prescriptions for the nausea.....one to use every morning, and the other is to use as needed for the nausea PLAN OF TREATMENT Pending Test Test Name Order Date CHEM 7 PROFILE 02/25/2024 LIVER PROFILE 02/25/2024 CRP 02/25/2024 CBC w DIFF 02/25/2024 SED RATE (ESR) 02/25/2024 CELIAC PANEL #10 02/25/2024 C DIFFICILE RFLX PCR 02/25/2024 Future Test Test Name Order Date COLONOSCOPY 05/28/2019 UPPER GI ENDOSCOPY 02/25/2024 COLONOSCOPY 02/25/2024 Insurance Providers Payer Name Payer Address Payer Phone Subscriber Number Group Number Insured Name Patient Relationship to Insured Coverage Start Date Coverage End Date MEDICARE OF [place] [address] [place] [address] [id number] NANCY VORA Self - patient is the insured [facility] [address] [address] [place] [address] [id number] NANCY VORA Self - patient is the insured MEDICAL (GENERAL) HISTORY Medical History History ICD Code Denies [place],CVA,Lung disease,renal disease IDDM Hypertension Kidney stones Negative screening colonoscopies in 1998 , 2008, and 07/2019 Back pain/Neck pain-arthritis/disc disea se/spinal stenosis Depression 2020 Left breast cancer left breast- lum pectomy and radiation Upper endoscopy in March revealed some mild gastritis but biopsies were negative for H. pylori. Duodenal biopsies were negative for celiac disease. There was no significant esophagitis nor Parry's esophagus. There was a small hiatal hernia Colonoscopy in March of 2024 was negative for polyps, inflammatory bowel disease, and microscopic colitis Surgical History Surgery Date(Month/Year) Hysterectomy and removal of 1 ovary Appendectomy Cholecystectomy Carpal tunnel release- both wrists 2 knee replacements Left lumpectomy 2020 with XRT Cataracts
--- OUTSIDE RECORDS SUMMARY | 2024-08-31 13:00 | XMS_ITS ---
Author Name [facility] Organization Unknown History of Medication Use Medication Directions Dispensed Refills Start Date End Date Stat insulin glargine (Lantus SoloStar) 100 units/mL prefilled pen injection See Admin Instructions. 02/18/2024 active sitaGLIPtin (Januvia) 100 MG tablet Take 100 mg by mouth daily. 02/18/2024 active buPROPion (WELLBUTRIN) 100 MG tablet Take 1 tablet by mouth 2 (two) times a day. 02/18/2024 active carvedilol (COREG) 25 MG tablet 02/18/2024 active levothyroxine (SYNTHROID, LEVOTHROID) 50 MCG tablet Take 50 mcg by mouth daily. 02/18/2024 active atorvastatin (LIPITOR) 10 MG tablet Take 10 mg by mouth daily. 02/18/2024 active Problems Problem Status Onset Date Problem Type Date of Resoluti on Source Secondary hyperparathyroidism active 2024-02-09 ProblemAct [facility] Hypovitaminosis D active 2024-02-09 ProblemAct [facility] CKD stage 3b, GFR 30-44 ml/min active 2024-02-09 ProblemAct [facility] Anemia associated with chronic renal failure active 2024-02-09 ProblemAct [facility] Essential hypertension active 2024-02-09 ProblemAct [facility] Diabetic nephropathy associated with type 2 diabetes mellitus active 2024-02-09 ProblemAct [facility] Nephrolithiasis active 2024-02-09 ProblemAct [facility]
== END 2024-08-24 11:02 | disposition home or self-care (01) ==
LOC: HO.HAP 11:01
PROVIDERS: Visit Provider Nurse Practitioner Family
DX: Z13.89 Encounter for screening for other disorder (principal)

== ENCOUNTER 2024-08-30 11:17 | Outpatient (AMB) | payer MEDICARE, OTHER, SELFPAY ==
[2024-08-30 11:47] VITALS: BP 130/82; PULSE 63; TEMP 36.9; O2SAT 98; BMI 33.7
--- NOTE | 2024-08-30 11:47 | AM.OFFWIN_ITS ---
Intake Vital Signs 08/30/24 11:47 Height 5 ft 1 in Weight 178 lb 6 oz BMI 33.7 BP 130/82 Blood Pressure Location Rt brachial Position Sitting Pulse 63 Pulse Source Pulse Oximeter Temp 98.4 F Temp Source Oral Pulse Oximetry (%) 98 Oxygen Delivery Method Room Air Intake Visit Reasons: EP-b/l ears block and infection Patient Tobacco Use Status: Former Tobacco user Allergies cephalexin [From Keflex] Allergy (Severe, Verified 08/30/24 11:47) Swelling ciprofloxacin [From Cipro] Allergy (Severe, Verified 08/30/24 11:47) eye swelling penicillin G Allergy (Severe, Verified 08/30/24 11:47) Angioedema Penicillins Allergy (Severe, Verified 08/30/24 11:47) ANGIOEDEMA gabapentin Allergy (Verified 08/30/24 11:47) Unknown meloxicam Allergy (Verified 08/30/24 11:47) Unknown NSAIDS (Non-Steroidal Anti-Inflamma Adverse Reaction (Verified 08/30/24 11:47) Unknown Sulfacet-R Allergy (Severe, Uncoded 06/04/24 13:57) Swelling Do you need a note to return to daycare/school/sports/work: No HPI HPI Comments History of Present Illness Details History of Present Illness The patient is a 79-year-old female presenting with ear discomfort and hearing loss. Approximately one month ago, the patient experienced a recurrence of earwax buildup, causing significant blockage and discomfort. The patient sought care from an elevated work platform operator who identified cerumen impaction and suspected an infection of the eardrum. Previously, a prescription antibiotic and eardrops were recommended. However, the patient reported being unable to use the eardrops due to subsequent issues with oil buildup causing further wax accumulation. The patient mentions persistent hearing loss and itchiness in the ears, suggesting possible otitis media. Past interventions included cleaning of the ears, although the patient reports a resurgence of wax shortly after cleaning. The patient has a recent history of not wearing hearing aids due to their non-fun ctionality in the presence of excessive wax. Physical Exam General: Cooperative, healthy appearing, comfortable, no acute distress and well developed Orientation: Patient oriented x3 Limitations: No limitations Head: Normal to inspection Ears: Hearing impaired due to wax buildup and infection bilaterally, bilateral TM's purulent effusions Nose: Normal external nose present Face and sinus: Normal facial exam Eyes: Appearance normal, both eyes and all related structures Neck: Normal visual inspection and Yes full ROM Respiratory: Normal respiratory effort and able to speak in complete sentences. Clear to auscultation bilaterally Cardiovascular: Regular rate and rhythm. Normal S1 and S2 GI: Normal to inspection. Soft to palpation and nontender Skin: No rashes or lesions noted Neuro: Patient oriented x3 Extremities: Normal to inspection COUNT INCLUDES THE [facility] Medical History Elevated cholesterol Breast cancer Hx of radiation therapy Depression Spinal stenosis Degenerative disc disease, cervical Arthritis Back pain HTN (hypertension) Diabetes Disc degeneration, lumbar Lumbar radiculopathy Osteoarthritis Breast cancer, left Surgical History Hx of bilateral cataract extraction History of knee replacement History of carpal tunnel release of both wrists Hx of cholecystectomy Hx of appendectomy Hx of hysterectomy History of lumpectomy of left breast H/O colonoscopy History of total left knee replacement Social History Housing: House Patient Tobacco Use Status: Former Tobacco user Tobacco use type: Cigarette Years Smoked: 50 years ago e-Cigarette/Vaping Use: Never Used Second Hand Smoke Exposure: No service: No Current occupational status: employed Current occupation: [employer] Current occupational exposures/hazards: No Cognitive needs: No Hearing needs: No Vision needs: Yes Review of Systems Const All systems reviewed & are unremarkable except as noted in HPI and below Physical Exam Vital Signs: Last Vital Signs Temp 98.4 F 08/30/24 11:47 Pulse 63 08/30/24 11:47 BP 130/82 08/30/24 11:47 Pulse Ox 98 08/30/24 11:47 Oxygen Delivery Method Room Air 08/30/24 11:47 BMI result Body Mass Index 33.7 Office Procedures Cerumen Removal From which ear canal was the cerumen removed: bilateral Removal: irrigation and otoscope w/curette Notes: patient tolerated procedure well, no complications and ear canal clear 89999-Oay Irrigation/Lavage Assessment & Plan Assessment & Plan (1) Otitis media: Code(s): H66.90 - Otitis media, unspecified, unspecified ear Qualifiers: Otitis media type: suppurative Chronicity: acute Laterality: bilateral Recurrence: non-recurrent Spontaneous tympanic membrane rupture: without spontaneous rupture Qualified Code(s): H66.003 - Acute suppurative otitis media without spontaneous rupture of ear drum, bilateral Plan: Bilateral Acute Otitis Media: Due to the confirmed presence of infection in both ears, I will prescribe a course of oral antibiotics. The patient will be advised to follow up for reassessment of symptoms and effectiveness of the treatment. Patient was informed and verbally consented to the use of an ambient scribe for clinic note documentation during this visit. (2) Impacted cerumen of both ears: Code(s): H61.23 - Impacted cerumen, bilateral Plan: Cerumen Impaction: The ears were clean to remove the excess wax impaction. It is important to ensure proper clearance to alleviate symptoms and aid in the management of suspected infections. Medications: New doxycycline hyclate 100 mg PO BID 14 tabs 0RF Coding Level of Care Code Est Pt Level 4 (48005) Diagnoses Non-recurrent acute suppurative otitis media of both ears without spontaneous rupture of tympanic membranes H66.003 Otitis media type: suppurative Chronicity: acute Laterality: bilateral Recurrence: non-recurrent Spontaneous tympanic membrane rupture: without spontaneous rupture Impacted cerumen of both ears H61.23 CPT Codes Office Procedure - CPT: 36748-Pri Irrigation/Lavage ([id number])
--- OUTSIDE RECORDS SUMMARY | 2024-09-01 15:10 | XMS_ITS ---
Author Organization [facility] Address [address] [place] [address] Care Team Providers Care Child Care Centre Manager Name Role Phone CHANDU CHISHOLM Primary Care Provider Taiwo Azar Unavailable [phone] REASON FOR VISIT diarrhea,wt loss,nausea PROBLEMS Problem Type ICD Code Onset Dates Problem Status W/U Status Risk SNOMED Code Notes Problem Diverticulosis of large intestine without perforation or abscess without bleeding (K57.30) Active confirmed Diverticul ar disease of colon (805106805) Encounters Encounter Location Date Provider Diagnosis [facility] Outpatient [address], [place] [id number] 03/26/2024 Tiawo Mcintosh Diarrhea R19.7 ; W eight loss [...]
--- OUTSIDE RECORDS SUMMARY | 2024-09-01 15:10 | XMS_ITS ---
Author Organization [facility] Address [address] [place] [address] Care Team Providers Care Playground Director Name Role Phone CHANDU CHISHOLM Primary Care Provider Taiwo Azar Unavailable [phone] ALLERGIES Allergen (clinical drug ingredient) Drug/Non Drug [...] Active confirmed Gastroesophagea l reflux disease (disorder) (527009382) VITAL SIGNS BMI 32.87 kg/m2 08/10/2024 Blood pressure systolic 00 mm Hg 08/10/20 24 Blood pressure diastolic 00 mm Hg 024 Height 61 in 08/10/2024 Weight 174 lbs 08/10/2024 Encounters Encounter Location Date Provider Diagnosis [facility] [address] [facility] [address] [place] [address] 08/10/2024 Taiwo Mcintosh Diarrhea R19.7 ; Nausea [...] alert and oriented SKIN: nonjaundiced, no spi adsh angiomata EXTREMITIES: no edema PERIPHERAL PULSES: BACK: BREASTS: MUSCULOSKELETAL: MALE GENITOURINARY: LYMPH NODES: RECTAL EXAM: FEMALE GENITOURINARY: ORAL CAVITY: mucosa moist
--- OUTSIDE RECORDS SUMMARY | 2024-09-01 15:10 | XMS_ITS | Patient Health Record ---
Author Organization [facility] Address [address] [place] [address] Care Team Providers Care Coroner Technician Name Role Phone CHANDU CHISHOLM Primary Care Provider Taiwo Azar [phone] ALLERGIES Allergen (clinical drug ingredient) Drug/Non Drug [...] EIA Reviewed date:03/15/2024 10:33:39 PM Interpretation: Performing Lab:[address] [address] Notes/Report: Giardia Ag Stool EIA SEE NOTE GIARDIA AG, EIA, STOOL Micro Number: [id number] Test Status: Final Specimen Source: Stool Specimen Quality: Adequate Giardia Result 1: Not Detected Reference Range: Not Detected NOTE: Due to intermittent shedding, one negative sample does not necessarily rule out the presence of a parasitic infection. THIS TEST WAS PERFORMED AT: [facility] [address] [place] [address] DESTINY AUGUSTE MD Calprotectin, Fecal Reviewed date:03/06/2024 01:39:27 PM Interpretation: Performing Lab:[address] [address] Notes/Report: Calprotectin, Fecal 12 Reference Range: <50 [...] borderline values. THIS TEST WAS PERFORMED AT: [facility] [address] [place] [address] TERRELL YU MD,PHD,TRIXIE Ova and Parasite Reviewed date:03/15/2024 10:37:24 PM Interpretation: Performing Lab:[address] [address] Notes/Report: Ova and Parasite SEE NOTE OVA AND PARASITES, CONC AND PERM SMEAR Micro Number: [id number] Test Status: Final Specimen Source: Specimen Quality: [...] infection. For additional information, please refer to [email or web address]'s Bloq/faq/XGB660 (This link is being provided for informational/ educational purposes only.) THIS TEST WAS PERFORMED AT: [facility] [address] MORA LONDON MD GI PANEL Reviewed date:02/28/2024 01:39:07 PM Interpretation: Performing Lab:[address] [address] Notes/Report: Campylobacter Not Detected Not Detect. Plesiomonas [...] is performed by Multiplexed PCR, utilizing the Alliqua Array. Complete Blood Count Auto Di ff Reviewed date:02/26/2024 11:50:55 PM Interpretation: Performing Lab:[facility], [address] [place] [address] Notes/Report: White Blood Count 5.6 4.8-10.8 X10*3/uL [...] te Reviewed date:02/26/2024 11:55:54 PM Interpretation: Performing Lab:[address] [address] Notes/Report: Erythrocyte Sedimentation Rate 26 0-20 MM/HR Patients with polycythemia and many hemoglobin abnormalities may have depressed sed rates whereas patients with anemia may have elevated sed rates. Liver Panel Reviewed date:02/26/2024 11:51:08 PM Interpretation: Performing Lab:[facility], [address] [place] [address] Notes/Report: Bilirubin Total 0.7 0.0-1.0 mg/dL Bilirubin Direct 0.2 0.0-0.5 mg/dL Aspartate Amino Transferase 14 5-31 U/L Alanine Aminotransferase 10 0-31 U/L Total Protein 6.5 6.5-8.0 g/dL Albumin Level 3.9 3.5-5.0 g/dL Alkaline Phosphatase 77 39-117 U/L Basic Metabolic Panel Reviewed date:02/28/2024 01:38:31 PM Interpretation: Performing Lab:[address] [address] Notes/Report: Sodium 143 135-145 mmol/L Potassium 3.2 3.3-5.1 mmol/L Chloride 112 96-108 mmol/L Carbon Dioxide 24 22-29 mmol/L Anion Gap 10 12-20 Blood Urea Nitrogen 22 9-16 mg/dL Creatinine 0.94 0.5-1.4 mg/dL Estimated Glomerular Filt Rate 58 NOTE: For -[place]agu[place] individuals, multiply the result by 1.210. Chronic Kidney Disease: Estimated GFR < 60 mL/min/1.73m2 Severe Kidney Disease: Estimated GFR < 15 mL/min/1.73m2 Glucose Random 121 60-115 mg/dL Calcium 9.7 8.4-10.2 mg/dL C Reactive Protein Reviewed date:02/26/2024 11:53:14 PM Interpretation: Performing Lab:[facility], [address] [place] [address] Notes/Report: C Reactive Protein 0.13 < or = 0.50 mg/dL Immunoglobulin A Reviewed date:03/01/2024 11:35:45 PM Interpretation: Performing Lab:[facility], [address] [place] [address] Notes/Report: Immunoglobulin A 247 70-320 mg/dL THIS TEST WAS PERFORMED AT: [facility] [address] [place] [phone] DESTINY AUGUSTE MD Transglutaminase Ab IgG Reviewed date:03/01/2024 11:34:46 PM Interpretation: Performing Lab:[facility], [address] [place] [address] Notes/Report: Transglutaminase Ab IgG <1.0 Value Interpretation ----- <15.0 Antibody not detected > or = 15.0 Antibody detected THIS TEST WAS PERFORMED AT: [facility] [address] [place] [phone] DESTINY AUGUSTE MD Transglutaminase IgA Reviewed date:03/01/2024 11:34:36 PM Interpretation: Performing Lab:[facility], [address] [place] [address] Notes/Report: Transglutaminase IgA <1.0 Value Interpretation ----- <15.0 Antibody not detected > or = 15.0 Antibody detected THIS TEST WAS PERFORMED AT: [facility] [address] [place] [address] DESTINY AUGUSTE MD Gliadin Ab Panel Reviewed date:03/01/2024 11:34:29 PM Interpretation: Performing Lab:[facility], [address] [place] [address] Notes/Report: Gliadin Deamidated IgA Ab <1.0 Value Interpretation ----- <15.0 Antibody not detected > or = 15.0 Antibody detected Gliadin Deamidated IgG Ab <1.0 Value Interpretation ----- <15.0 Antibody not detected > or = 15.0 Antibody detected THIS TEST WAS PERFORMED AT: [facility] [address] [place] [phone] DESTINY AUGUSTE MD Endomysial IgA rflx Titer Reviewed date:03/01/2024 11:34:22 PM Interpretation: Performing Lab:[facility], [address] [place] [address] Notes/Report: Endomysial IgA Antibody Negative Negative THIS TEST WAS PERFORMED AT: [facility]/[address] [address] DARRELL WESTBROOK MD,PHD Endomysial Titer TNP CDiff Gene PCR Reviewed date:02/28/2024 01:04:04 PM Interpretation: Performing Lab:[facility], [address] [place] [phone] Notes/Report: CDiff Gene PCR NEGATIVE Negative If C. difficile strongly suspected despite one negative test, a second test may be sent vs. empiric treatment for C. difficile infection. Prothrombin Time INR Reviewed date:03/27/2024 09:51:04 PM Interpretation: Performing Lab:[facility], [address] [place] [phone] Notes/Report: Prothrombin Time 11.0 11.1-13.3 [employer] [...] Electrolytes Reviewed date:03/27/2024 09:50:56 PM Interpretation: Performing Lab:[facility], [address] [place] [address] Notes/Report: Sodium 139 135-145 mmol/L Potassium 3.7 3.3-5.1 mmol/L Chloride 109 96-108 mmol/L Carbon Dioxide 20 22-29 mmol/L Anion Gap 14 12-20 Glucose, Whole Blood Reviewed date:03/27/2024 09:50:45 PM Interpretation: Performing Lab:[facility], [address] [place] [address] Notes/Report: Glucose, Whole Blood 85 60-115 mg/dL METER # : [id number] Pathology Reviewed date:08/10/2024 10:51:18 AM Interpretation: Performing Lab:[facility], [address] [place] [address] Notes/Report: REASON FOR REFERRAL No Information MEDICATIONS [...] Problem Hypertension, unspecified type (I10) Active confirmed 39634911 Problem Encounter for screening for malignant neoplasm of colon (Z12.11) Active confirmed 980920345 Problem Preprocedural examination (Z01.818) Active confirmed [id number] Problem Encntr long-term NSAID use (Z79.1) Active confirmed 519921703 Problem Nausea (R11.0) Active confirmed Nausea (641081624) Problem Diarrhea (R19.7) Active confirmed Diarr hea (55286468) Problem Weight loss (R63.4) Active confirmed Weight loss (904169200) Problem Diverticulosis of large intestine without perforation or abscess without bleeding (K57.30) Active confirmed Diverticul ar disease of colon (466544267) Problem Chronic GERD (K21.9) Active confirmed Gastroesophagea l reflux disease (disorder) (103030979) VITAL SIGNS Temperature 96.9 degrees Fahrenheit 02/25/2024 Blood pressure diastolic 00 mm Hg 08/10/2024 Height 61 in 08/10/2024 Blood pressure systolic 00 mm Hg 08/10/2024 Weight 174 lbs 08/10/2024 BMI 32.87 kg/m2 08/10/2024 Encounters Encounter Location Date Provider Diagnosis [facility] Outpatient [address] [place] [id number] 03/26/2024 Taiwo Mcintosh Diarrhea R19.7 ; Dallin ght loss R63.4 ; Diverticulosis of large intestine without perforation or abscess without bleeding K57.30 ; Other hemorrhoids K64.8 ; Nausea R11.0 and Hiatal hernia K44.9 [facility] [address] [place] [address] 02/25/2024 Taiwo Mcintosh Nausea R11.0 ; Diarr hea R19.7 and Weight loss R63.4 [facility] [address] [address] 08/10/2024 Taiwo Mcintosh Diarrhea R19.7 ; Yonis sea R11.0 and Chronic GERD K21.9 [facility] [address] [address] 02/26/2024 Taiwo Mcintosh [facility] [address] [address] 03/29/2024 Taiwo Mcintosh ASSESSMENTS Encounter Date Diagnosis [...] Date MEDICARE OF [place] [address] [place] [address] [phone] [id number] NANCY VORA Self - patient is the insured [facility] [address] [address] [place] [address] [id number] NANCY VORA Self - patient is the insured MEDICAL (GENERAL) HISTORY Medical History History ICD Code Denies NM,CVA,Lung disease,renal disease IDDM Hypertension Kidney stones Negative [...]
--- OUTSIDE RECORDS SUMMARY | 2024-09-01 15:10 | XMS_ITS ---
Author Organization [facility] Address [address] [place] [address] Care Team Providers Care Electrical Tester Name Role Phone CHANDU CHISHOLM Primary Care Provider Taiwo Azar [phone] Encounters Encounter Location Date Provider Diagnosis [facility] [address] [place] [address] 03/29/2024 Taiwo Mcintosh PLAN OF TREATMENT No Information
== END 2024-08-30 12:53 | disposition home or self-care (01) ==
PROVIDERS: PCP Nurse Practitioner Family; Visit Provider Physician Assistant
DX: H66.003 Acute suppurative otitis media without spontaneous rupture of ear drum, bilateral (principal); H61.23 Impacted cerumen, bilateral

== ENCOUNTER → 2024-08-30 11:17 | Outpatient (BNVA) | payer MEDICARE, OTHER, SELFPAY | PROVIDERS: PCP Nurse Practitioner Family; Visit Provider Physician Assistant | DX: H66.003 Acute suppurative otitis media without spontaneous rupture of ear drum, bilateral (principal) | CPT/HCPCS: 69210; 99212 ==

== ENCOUNTER 2024-09-10 08:50 | Outpatient (AMB) | payer MEDICARE, OTHER, SELFPAY ==
--- NOTE | 2024-09-10 08:55 | MHC.OFFWIV ---
Intake Vital Signs 09/10/24 08:56 Height 5 ft 1 in Weight 174 lb BMI 32.9 BP 126/78 Blood Pressure Location Rt brachial Position Sitting Pulse 64 Pulse Source Pulse Oximeter Temp 97.8 F Temp Source Oral Pulse Oximetry (%) 99 Oxygen Delivery Method Room Air Intake Visit Reasons: EP-wax removal b/l ears Intake Note: Patient here for bilat ear pain/infection Patient Tobacco Use Status: Former Tobacco user Allergies cephalexin [From Keflex] Allergy (Severe, Verified 09/10/24 08:57) Swelling ciprofloxacin [From Cipro] Allergy (Severe, Verified 09/10/24 08:57) eye swelling penicillin G Allergy (Severe, Verified 09/10/24 08:57) Angioedema Penicillins Allergy (Severe, Verified 09/10/24 08:57) ANGIOEDEMA gabapentin Allergy (Verified 09/10/24 08:57) Unknown meloxicam Allergy (Verified 09/10/24 08:57) Unknown NSAIDS (Non-Steroidal Anti-Inflamma Adverse Reaction (Verified 09/10/24 08:57) Unknown Sulfacet-R Allergy (Severe, Uncoded 09/10/24 08:57) Swelling Do you need a note to return to daycare/school/sports/work: No HPI HPI Comments History of Present Illness Details Patient is a 79yo F who presents with recurrent cerumen impaction/ear infection 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 assistant store manager 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 June 15 she was seen for OM and tx with doxy due to allergies Came back in 08/30 and had cerumen impaction with OM Finished antibiotics without relief of symptoms + blocked hearing, itching No pain, 0/10 No fever or chills Has never seen an ENT No other complaints Cleans at home with Q tip PFSH Medical History Elevated cholesterol Breast cancer Hx of radiation therapy Depression Spinal stenosis Degenerative disc disease, cervical Arthritis Back pain HTN (hypertension) Diabetes Disc degeneration, lumbar Lumbar radiculopathy Osteoarthritis Breast cancer, left Surgical History Hx of bilateral cataract extraction History of knee replacement History of carpal tunnel release of both wrists Hx of cholecystectomy Hx of appendectomy Hx of hysterectomy History of lumpectomy of left breast H/O colonoscopy History of total left knee replacement Social History Housing: House Patient Tobacco Use Status: Former Tobacco user Tobacco use type: Cigarette Years Smoked: 50 years ago e-Cigarette/Vaping Use: Never Used Second Hand Smoke Exposure: No service: No Current occupational status: employed Current occupation: [employer] Current occupational exposures/hazards: No Cognitive needs: No Hearing needs: No Vision needs: Yes Review of Systems Const Denies chills, Denies fever(s) and Denies frequent falls ENT Denies dizziness, Denies otalgia (cerumen impaction and recurrent infection bilaterally), Denies nasal discharge and Denies sore throat Card Denies syncope Resp Denies cough Neuro Denies dizziness, Denies syncope and Denies frequent falls Physical Exam Vital Signs: Last Vital Signs Temp 97.8 F 09/10/24 08:56 Pulse 64 09/10/24 08:56 BP 126/78 09/10/24 08:56 Pulse Ox 99 09/10/24 08:56 Oxygen Delivery Method Room Air 09/10/24 08:56 BMI result Body Mass Index 32.9 General: Non-toxic, NAD. Speaking full sentences. Skin: Warm dry throughout Eye: EOMI HENT: Cerumen impaction bilaterally. Respiratory: No respiratory distress MSK: Full ROM extremities. Neurology: Alert. No aphasia or facial droop. Gait without abnormality Psych: Good mood and affect Office Procedures Cerumen Removal Details: Noted TM erythema with effusion bilaterally once cleaned. No TM perforation From which ear canal was the cerumen removed: bilateral Removal: irrigation Notes: patient tolerated procedure well, no complications and ear canal clear [id number] Irrigation/Lavage Assessment & Plan Assessment & Plan (1) Impacted cerumen of both ears: Code(s): H61.23 - Impacted cerumen, bilateral Plan: Patient seen and evaluated. \verbal consent obtained and ears irrigated softly with warm water Pt tolerated well without complication No wearing hearing aids until ears dry x 1-2 hours (2) Otitis media: Code(s): H66.90 - Otitis media, unspecified, unspecified ear Qualifiers: Chronicity: acute Laterality: bilateral Otitis media type: suppurative Recurrence: non-recurrent Spontaneous tympanic membrane rupture: without spontaneous rupture Qualified Code(s): H66.003 - Acute suppurative otitis media without spontaneous rupture of ear drum, bilateral Plan: Pt seen and evaluated need to see ENT; message sent ti brianne davenport provided Pt gave verbal understanding and had no additional questions or concerns at this time Medications: New doxycycline monohydrate 100 mg PO BID 14 caps 0RF Coding Level of Care Code Est Pt Level 3 (14474) Diagnoses Impacted cerumen of both ears H61.23 Non-recurrent acute suppurative otitis media of both ears without spontaneous rupture of tympanic membranes H66.003 Chronicity: acute Laterality: bilateral Otitis media type: suppurative Recurrence: non-recurrent Spontaneous tympanic membrane rupture: without spontaneous rupture CPT Codes Office Procedure - CPT: 84106-Mfi Irrigation/Lavage ([id number])
[2024-09-10 08:56] VITALS: BP 126/78; PULSE 64; TEMP 36.6; O2SAT 99; BMI 32.9
--- OUTSIDE RECORDS SUMMARY | 2024-09-10 09:01 | XMS_ITS ---
Author Organization [facility] Address [address] [place] [address] Care Team Providers Care Steam Flattener Name Role Phone CHANDU CHISHOLM Primary Care Provider Taiwo Azar [phone] Encounters Encounter Location Date Provider Diagnosis [facility] [address] [place] [address] 03/29/2024 Taiwo Mcintosh PLAN OF TREATMENT No Information
--- OUTSIDE RECORDS SUMMARY | 2024-09-10 09:01 | XMS_ITS ---
Author Organization [facility] Address [address] [place] [address] Care Team Providers Care Sign Hanger Name Role Phone CHANDU CHISHOLM Primary Care Provider Taiwo Azar Unavailable [phone] ALLERGIES Allergen (clinical drug ingredient) Drug/Non Drug [...] Active confirmed Gastroesophagea l reflux disease (disorder) (667155151) VITAL SIGNS BMI 32.87 kg/m2 08/10/2024 Blood pressure systolic 00 mm Hg 08/10/20 24 Blood pressure diastolic 00 mm Hg 024 Height 61 in 08/10/2024 Weight 174 lbs 08/10/2024 Encounters Encounter Location Date Provider Diagnosis [facility] [address] [facility] [address] [place] [address] 08/10/2024 Taiwo Mcintosh Diarrhea R19.7 ; Nausea [...]
--- OUTSIDE RECORDS SUMMARY | 2024-09-10 09:01 | XMS_ITS ---
Author Organization [facility] Address [address] [place] [address] Care Team Providers Care Switch House Operator Name Role Phone CHANDU CHISHOLM Primary Care Provider Taiwo Azar Unavailable [phone] REASON FOR VISIT diarrhea,wt loss,nausea PROBLEMS Problem Type ICD Code Onset Dates Problem Status W/U Status Risk SNOMED Code Notes Problem Diverticulosis of large intestine without perforation or abscess without bleeding (K57.30) Active confirmed Diverticul ar disease of colon (295959592) Encounters Encounter Location Date Provider Diagnosis [facility] [place] [address], [place] [phone] 03/26/2024 Taiwo Mcintosh Diarrhea R19.7 ; W [...]
--- OUTSIDE RECORDS SUMMARY | 2024-09-10 09:01 | XMS_ITS | Patient Health Record ---
Author Organization [facility] Address [address] [place] [address] Care Team Providers Care Cuff Knitter Name Role Phone CHANDU CHISHOLM Primary Care Provider Taiwo Azar [phone] ALLERGIES Allergen (clinical drug ingredient) Drug/Non Drug [...] EIA Reviewed date:03/15/2024 10:33:39 PM Interpretation: Performing Lab:[address] [address] Notes/Report: Giardia Ag Stool EIA SEE NOTE GIARDIA AG, EIA, STOOL Micro Number: [id number] Test Status: Final Specimen Source: Stool Specimen Quality: Adequate Giardia Result 1: Not Detected Reference Range: Not Detected NOTE: Due to intermittent shedding, one negative sample does not necessarily rule out the presence of a parasitic infection. THIS TEST WAS PERFORMED AT: [address] [place] [address] DESTINY AUGUSTE MD Calprotectin, Fecal Reviewed date:03/06/2024 01:39:27 PM Interpretation: Performing Lab:[address] [address] Notes/Report: Calprotectin, Fecal 12 Reference Range: <50 [...] borderline values. THIS TEST WAS PERFORMED AT: [facility] [address] [place] [address] TERRELL YU MD,PHD,TRIXIE Ova and Parasite Reviewed date:03/15/2024 10:37:24 PM Interpretation: Performing Lab:[address] [address] Notes/Report: Ova and Parasite SEE NOTE OVA AND PARASITES, CONC AND PERM SMEAR Micro Number: [id number] Test Status: Final Specimen Source: Specimen Quality: [...] infection. For additional information, please refer to https://education.Sferra/faq/OQF484 (This link is being provided for informational/ educational purposes only.) THIS TEST WAS PERFORMED AT: [facility] [address] MORA LONDON MD GI PANEL Reviewed date:02/28/2024 01:39:07 PM Interpretation: Performing Lab:[address] [address] Notes/Report: Campylobacter Not Detected Not Detect. Plesiomonas [...] is performed by Multiplexed PCR, utilizing the [employer] Array. Complete Blood Count Auto Di ff Reviewed date:02/26/2024 11:50:55 PM Interpretation: Performing Lab:[facility], [address] [place] [address] Notes/Report: White Blood Count 5.6 4.8-10.8 X10*3/uL [...] te Reviewed date:02/26/2024 11:55:54 PM Interpretation: Performing Lab:[address] [address] Notes/Report: Erythrocyte Sedimentation Rate 26 0-20 MM/HR Patients with polycythemia and many hemoglobin abnormalities may have depressed sed rates whereas patients with anemia may have elevated sed rates. Liver Panel Reviewed date:02/26/2024 11:51:08 PM Interpretation: Performing Lab:[facility], [address] [place] [address] Notes/Report: Bilirubin Total 0.7 0.0-1.0 mg/dL Bilirubin Direct 0.2 0.0-0.5 mg/dL Aspartate Amino Transferase 14 5-31 U/L Alanine Aminotransferase 10 0-31 U/L Total Protein 6.5 6.5-8.0 g/dL Albumin Level 3.9 3.5-5.0 g/dL Alkaline Phosphatase 77 39-117 U/L Basic Metabolic Panel Reviewed date:02/28/2024 01:38:31 PM Interpretation: Performing Lab:[address] [address] Notes/Report: Sodium 143 135-145 mmol/L Potassium 3.2 3.3-5.1 mmol/L Chloride 112 96-108 mmol/L Carbon Dioxide 24 22-29 mmol/L Anion Gap 10 12-20 Blood Urea Nitrogen 22 9-16 mg/dL Creatinine 0.94 0.5-1.4 mg/dL Estimated Glomerular Filt Rate 58 NOTE: For -Canadian individuals, multiply the result by 1.210. Chronic Kidney Disease: Estimated GFR < 60 mL/min/1.73m2 Severe Kidney Disease: Estimated GFR < 15 mL/min/1.73m2 Glucose Random 121 60-115 mg/dL Calcium 9.7 8.4-10.2 mg/dL C Reactive Protein Reviewed date:02/26/2024 11:53:14 PM Interpretation: Performing Lab:[facility], [address] [place] [address] Notes/Report: C Reactive Protein 0.13 < or = 0.50 mg/dL Immunoglobulin A Reviewed date:03/01/2024 11:35:45 PM Interpretation: Performing Lab:[facility], [address] [place] [address] Notes/Report: Immunoglobulin A 247 70-320 mg/dL THIS TEST WAS PERFORMED AT: [address] [place] [address] DESTINY AUGUSTE MD Transglutaminase Ab IgG Reviewed date:03/01/2024 11:34:46 PM Interpretation: Performing Lab:[facility], [address] [place] [address] Notes/Report: Transglutaminase Ab IgG <1.0 Value Interpretation ----- <15.0 Antibody not detected > or = 15.0 Antibody detected THIS TEST WAS PERFORMED AT: [address] [place] [address] DESTINY AUGUSTE MD Transglutaminase IgA Reviewed date:03/01/2024 11:34:36 PM Interpretation: Performing Lab:[facility], [address] [place] [address] Notes/Report: Transglutaminase IgA <1.0 Value Interpretation ----- <15.0 Antibody not detected > or = 15.0 Antibody detected THIS TEST WAS PERFORMED AT: [address] [place] [address] DESTINY AUGUSTE MD Gliadin Ab Panel Reviewed date:03/01/2024 11:34:29 PM Interpretation: Performing Lab:[facility], [address] [place] [address] Notes/Report: Gliadin Deamidated IgA Ab <1.0 Value Interpretation ----- <15.0 Antibody not detected > or = 15.0 Antibody detected Gliadin Deamidated IgG Ab <1.0 Value Interpretation ----- <15.0 Antibody not detected > or = 15.0 Antibody detected THIS TEST WAS PERFORMED AT: [address] [place] [address] DESTINY AUGUSTE MD Endomysial IgA rflx Titer Reviewed date:03/01/2024 11:34:22 PM Interpretation: Performing Lab:[facility], [address] [place] [address] Notes/Report: Endomysial IgA Antibody Negative Negative THIS TEST WAS PERFORMED AT: [facility]/[address] [address] DARRELL WESTBROOK MD,PHD Endomysial Titer TNP CDiff Gene PCR Reviewed date:02/28/2024 01:04:04 PM Interpretation: Performing Lab:[facility], [address] [place] [address] Notes/Report: CDiff Gene PCR NEGATIVE Negative If C. difficile strongly suspected despite one negative test, a second test may be sent vs. empiric treatment for C. difficile infection. Prothrombin Time INR Reviewed date:03/27/2024 09:51:04 PM Interpretation: Performing Lab:[facility], [address] [place] [address] Notes/Report: Prothrombin Time 11.0 11.1-13.3 [employer] [...] Electrolytes Reviewed date:03/27/2024 09:50:56 PM Interpretation: Performing Lab:[facility], [address] [place] [address] Notes/Report: Sodium 139 135-145 mmol/L Potassium 3.7 3.3-5.1 mmol/L Chloride 109 96-108 mmol/L Carbon Dioxide 20 22-29 mmol/L Anion Gap 14 12-20 Glucose, Whole Blood Reviewed date:03/27/2024 09:50:45 PM Interpretation: Performing Lab:[facility], [address] [place] [address] Notes/Report: Glucose, Whole Blood 85 60-115 mg/dL METER # : [id number] Pathology Reviewed date:08/10/2024 10:51:18 AM Interpretation: Performing Lab:[facility], [address] [place] [address] Notes/Report: REASON FOR REFERRAL No Information MEDICATIONS [...] Problem Hypertension, unspecified type (I10) Active confirmed 07976601 Problem Encounter for screening for malignant neoplasm of colon (Z12.11) Active confirmed 165066745 Problem Preprocedural examination (Z01.818) Active confirmed 809951215584316 Problem Encntr long-term NSAID use (Z79.1) Active confirmed 751321305 Problem Nausea (R11.0) Active confirmed Nausea (733923913) Problem Diarrhea (R19.7) Active confirmed Diarr hea (98450449) Problem Weight loss (R63.4) Active confirmed Weight loss (370972303) Problem Diverticulosis of large intestine without perforation or abscess without bleeding (K57.30) Active confirmed Diverticul ar disease of colon (226908675) Problem Chronic GERD (K21.9) Active confirmed Gastroesophagea l reflux disease (disorder) (235633358) VITAL SIGNS Temperature 96.9 degrees Fahrenheit 02/25/2024 Blood pressure diastolic 00 mm Hg 08/10/2024 Height 61 in 08/10/2024 Blood pressure systolic 00 mm Hg 08/10/2024 Weight 174 lbs 08/10/2024 BMI 32.87 kg/m2 08/10/2024 Encounters Encounter Location Date Provider Diagnosis [facility] Outpatient [address] [place] [id number] 03/26/2024 Taiwo Mcintosh Diarrhea R19.7 ; Dallin ght loss R63.4 ; Diverticulosis of large intestine without perforation or abscess without bleeding K57.30 ; Other hemorrhoids K64.8 ; Nausea R11.0 and Hiatal hernia K44.9 [facility] [address] [place] [address] 02/25/2024 Taiwo Mcintosh Nausea R11.0 ; Diarr hea R19.7 and Weight loss R63.4 [facility] [address] [address] 08/10/2024 Taiwo Mcintosh Diarrhea R19.7 ; Yonis sea R11.0 and Chronic GERD K21.9 [facility] [address] [address] 02/26/2024 Taiwo Mcintosh [facility] [address] [address] 03/29/2024 Taiwo Mcintosh ASSESSMENTS Encounter Date Diagnosis [...] Date MEDICARE OF [place] [address] [place] [address] [id number] NANCY VORA Self - patient is the insured [facility] [address] [address] [place] [address] [id number] NANCY VORA Self - patient is the insured MEDICAL (GENERAL) HISTORY Medical History History ICD Code Denies [place],CVA,Lung disease,renal disease IDDM Hypertension Kidney stones Negative [...]
== END 2024-09-10 09:48 | disposition home or self-care (01) ==
PROVIDERS: PCP Nurse Practitioner Family; Visit Provider Physician Assistant
DX: H61.23 Impacted cerumen, bilateral (principal); H66.003 Acute suppurative otitis media without spontaneous rupture of ear drum, bilateral

== ENCOUNTER → 2024-09-10 08:50 | Outpatient (BNVA) | payer MEDICARE, OTHER, SELFPAY | PROVIDERS: PCP Nurse Practitioner Family; Visit Provider Physician Assistant | DX: H61.23 Impacted cerumen, bilateral (principal); H66.003 Acute suppurative otitis media without spontaneous rupture of ear drum, bilateral | CPT/HCPCS: 69209; 99212 ==

== ENCOUNTER 2024-09-30 09:09 | Outpatient (REF) | payer SELFPAY ==
--- OUTSIDE RECORDS SUMMARY | 2024-09-30 09:24 | XMS_ITS ---
Author Organization [facility] Address [address] [place] [address] Care Team Providers Care Communications Controller Name Role Phone CHANDU CHISHOLM Primary Care Provider Taiwo Azar [phone] Encounters Encounter Location Date Provider Diagnosis [facility] [address] [place] [address] 03/29/2024 Taiwo Mcintosh PLAN OF TREATMENT No Information
--- OUTSIDE RECORDS SUMMARY | 2024-09-30 09:24 | XMS_ITS ---
Author Organization [facility] Address [address] [place] [address] Care Team Providers Care Student Loan Counselor Name Role Phone CHANDU CHISHOLM Primary Care Provider Taiwo Azar Unavailable [phone] ALLERGIES Allergen (clinical drug ingredient) Drug/Non Drug [...] Active confirmed Gastroesophagea l reflux disease (disorder) (745568827) VITAL SIGNS BMI 32.87 kg/m2 08/10/2024 Blood pressure systolic 00 mm Hg 08/10/20 24 Blood pressure diastolic 00 mm Hg 024 Height 61 in 08/10/2024 Weight 174 lbs 08/10/2024 Encounters Encounter Location Date Provider Diagnosis [facility] [address] [facility] [address] [place] [address] 08/10/2024 Taiwo Mcintosh Diarrhea R19.7 ; Nausea [...]
--- OUTSIDE RECORDS SUMMARY | 2024-09-30 09:25 | XMS_ITS ---
Author Organization [facility] Address [address] [place] [address] Care Team Providers Care International Marketing Manager Name Role Phone CHANDU CHISHOLM Primary Care Provider Taiwo Azar Unavailable [phone] REASON FOR VISIT diarrhea,wt loss,nausea PROBLEMS Problem Type ICD Code Onset Dates Problem Status W/U Status Risk SNOMED Code Notes Problem Diverticulosis of large intestine without perforation or abscess without bleeding (K57.30) Active confirmed Diverticul ar disease of colon (825850789) Encounters Encounter Location Date Provider Diagnosis [facility] Outpatient [address] [place], [place] [id number] 03/26/2024 Taiwo Mcintosh Diarrhea R19.7 ; W [...]
--- OUTSIDE RECORDS SUMMARY | 2024-09-30 09:25 | XMS_ITS | Patient Health Record ---
Author Organization [facility] Address [address] [place] [address] Care Team Providers Care Bag Bundler Name Role Phone CHANDU CHISHOLM Primary Care Provider Taiwo Azar [phone] ALLERGIES Allergen (clinical drug ingredient) Drug/Non Drug [...] EIA Reviewed date:03/15/2024 10:33:39 PM Interpretation: Performing Lab:[address] [address] Notes/Report: Giardia Ag Stool EIA SEE NOTE GIARDIA AG, EIA, STOOL Micro Number: [id number] Test Status: Final Specimen Source: Stool Specimen Quality: Adequate Giardia Result 1: Not Detected Reference Range: Not Detected NOTE: Due to intermittent shedding, one negative sample does not necessarily rule out the presence of a parasitic infection. THIS TEST WAS PERFORMED AT: [facility] [address] [place] [address] DESTINY AUGUSTE MD Calprotectin, Fecal Reviewed date:03/06/2024 01:39:27 PM Interpretation: Performing Lab:[address] [address] Notes/Report: Calprotectin, Fecal 12 Reference Range: <50 [...] borderline values. THIS TEST WAS PERFORMED AT: [employer] [address] [place] [address] TERRELL YU MD,PHD,TRIXIE Ova and Parasite Reviewed date:03/15/2024 10:37:24 PM Interpretation: Performing Lab:[address] [address] Notes/Report: Ova and Parasite SEE NOTE OVA AND PARASITES, CONC AND PERM SMEAR Micro Number: [id number] Test Status: Final Specimen Source: Specimen Quality: [...] infection. For additional information, please refer to https://education.Isonas/faq/SSR624 (This link is being provided for informational/ educational purposes only.) THIS TEST WAS PERFORMED AT: [address] [address] MORA LONDON MD GI PANEL Reviewed date:02/28/2024 01:39:07 PM Interpretation: Performing Lab:[address] [address] Notes/Report: Campylobacter Not Detected Not Detect. Plesiomonas [...] is performed by Multiplexed PCR, utilizing the [employer] Array. Complete Blood Count Auto Di ff Reviewed date:02/26/2024 11:50:55 PM Interpretation: Performing Lab:[facility], [address] [place] [address] Notes/Report: White Blood Count 5.6 4.8-10.8 X10*3/uL [...] te Reviewed date:02/26/2024 11:55:54 PM Interpretation: Performing Lab:[address] [address] Notes/Report: Erythrocyte Sedimentation Rate 26 0-20 MM/HR Patients with polycythemia and many hemoglobin abnormalities may have depressed sed rates whereas patients with anemia may have elevated sed rates. Liver Panel Reviewed date:02/26/2024 11:51:08 PM Interpretation: Performing Lab:[facility], [address] [place] [address] Notes/Report: Bilirubin Total 0.7 0.0-1.0 mg/dL Bilirubin Direct 0.2 0.0-0.5 mg/dL Aspartate Amino Transferase 14 5-31 U/L Alanine Aminotransferase 10 0-31 U/L Total Protein 6.5 6.5-8.0 g/dL Albumin Level 3.9 3.5-5.0 g/dL Alkaline Phosphatase 77 39-117 U/L Basic Metabolic Panel Reviewed date:02/28/2024 01:38:31 PM Interpretation: Performing Lab:[address] [address] Notes/Report: Sodium 143 135-145 mmol/L Potassium 3.2 3.3-5.1 mmol/L Chloride 112 96-108 mmol/L Carbon Dioxide 24 22-29 mmol/L Anion Gap 10 12-20 Blood Urea Nitrogen 22 9-16 mg/dL Creatinine 0.94 0.5-1.4 mg/dL Estimated Glomerular Filt Rate 58 NOTE: For -Botswan[place] individuals, multiply the result by 1.210. Chronic Kidney Disease: Estimated GFR < 60 mL/min/1.73m2 Severe Kidney Disease: Estimated GFR < 15 mL/min/1.73m2 Glucose Random 121 60-115 mg/dL Calcium 9.7 8.4-10.2 mg/dL C Reactive Protein Reviewed date:02/26/2024 11:53:14 PM Interpretation: Performing Lab:[facility], [address] [place] [address] Notes/Report: C Reactive Protein 0.13 < or = 0.50 mg/dL Immunoglobulin A Reviewed date:03/01/2024 11:35:45 PM Interpretation: Performing Lab:[facility], [address] [place] [address] Notes/Report: Immunoglobulin A 247 70-320 mg/dL THIS TEST WAS PERFORMED AT: [facility] [address] [place] [address] DESTINY AUGUSTE MD Transglutaminase Ab IgG Reviewed date:03/01/2024 11:34:46 PM Interpretation: Performing Lab:[facility], [address] [place] [address] Notes/Report: Transglutaminase Ab IgG <1.0 Value Interpretation ----- <15.0 Antibody not detected > or = 15.0 Antibody detected THIS TEST WAS PERFORMED AT: [facility] [address] [place] [phone] DESTINY AUGUSTE MD Transglutaminase IgA Reviewed date:03/01/2024 11:34:36 PM Interpretation: Performing Lab:[facility], [address] [place] [address] Notes/Report: Transglutaminase IgA <1.0 Value Interpretation ----- <15.0 Antibody not detected > or = 15.0 Antibody detected THIS TEST WAS PERFORMED AT: [facility] [address] [place] [phone] DESTINY AUGUSTE MD Gliadin Ab Panel Reviewed date:03/01/2024 11:34:29 PM Interpretation: Performing Lab:[facility], [address] [place] [phone] Notes/Report: Gliadin Deamidated IgA Ab <1.0 Value Interpretation ----- <15.0 Antibody not detected > or = 15.0 Antibody detected Gliadin Deamidated IgG Ab <1.0 Value Interpretation ----- <15.0 Antibody not detected > or = 15.0 Antibody detected THIS TEST WAS PERFORMED AT: [facility] [address] [place] [phone] DESTINY AUGUSTE MD Endomysial IgA rflx Titer Reviewed date:03/01/2024 11:34:22 PM Interpretation: Performing Lab:[facility], [address] [place] [address] Notes/Report: Endomysial IgA Antibody Negative Negative THIS TEST WAS PERFORMED AT: [facility] [address] DARRELL WESTBROOK MD,PHD Endomysial Titer TNP CDiff Gene PCR Reviewed date:02/28/2024 01:04:04 PM Interpretation: Performing Lab:[facility], [address] [place] [address] Notes/Report: CDiff Gene PCR NEGATIVE Negative If C. difficile strongly suspected despite one negative test, a second test may be sent vs. empiric treatment for C. difficile infection. Prothrombin Time INR Reviewed date:03/27/2024 09:51:04 PM Interpretation: Performing Lab:[facility], [address] [place] [address] Notes/Report: Prothrombin Time 11.0 11.1-13.3 [employer] [...] Electrolytes Reviewed date:03/27/2024 09:50:56 PM Interpretation: Performing Lab:[facility], [address] [place] [address] Notes/Report: Sodium 139 135-145 mmol/L Potassium 3.7 3.3-5.1 mmol/L Chloride 109 96-108 mmol/L Carbon Dioxide 20 22-29 mmol/L Anion Gap 14 12-20 Glucose, Whole Blood Reviewed date:03/27/2024 09:50:45 PM Interpretation: Performing Lab:[facility], [address] [place] [address] Notes/Report: Glucose, Whole Blood 85 60-115 mg/dL METER # : [id number] Pathology Reviewed date:08/10/2024 10:51:18 AM Interpretation: Performing Lab:[facility], [address] [place] [address] Notes/Report: REASON FOR REFERRAL No Information MEDICATIONS [...] Problem Hypertension, unspecified type (I10) Active confirmed 11005598 Problem Encounter for screening for malignant neoplasm of colon (Z12.11) Active confirmed 808309179 Problem Preprocedural examination (Z01.818) Active confirmed 531738452422795 Problem Encntr long-term NSAID use (Z79.1) Active confirmed 881965524 Problem Nausea (R11.0) Active confirmed Nausea (146177501) Problem Diarrhea (R19.7) Active confirmed Diarr hea (88203064) Problem Weight loss (R63.4) Active confirmed Weight loss (944552842) Problem Diverticulosis of large intestine without perforation or abscess without bleeding (K57.30) Active confirmed Diverticul ar disease of colon (089833134) Problem Chronic GERD (K21.9) Active confirmed Gastroesophagea l reflux disease (disorder) (460738398) VITAL SIGNS Temperature 96.9 degrees Fahrenheit 02/25/2024 Blood pressure diastolic 00 mm Hg 08/10/2024 Height 61 in 08/10/2024 Blood pressure systolic 00 mm Hg 08/10/2024 Weight 174 lbs 08/10/2024 BMI 32.87 kg/m2 08/10/2024 Encounters Encounter Location Date Provider Diagnosis [facility] Outpatient [address] [place] [id number] 03/26/2024 Taiwo Mcintosh Diarrhea R19.7 ; Dallin ght loss R63.4 ; Diverticulosis of large intestine without perforation or abscess without bleeding K57.30 ; Other hemorrhoids K64.8 ; Nausea R11.0 and Hiatal hernia K44.9 [facility] [address] [place] [address] 02/25/2024 Taiwo Mcintosh Nausea R11.0 ; Diarr hea R19.7 and Weight loss R63.4 [facility] [address] [address] 08/10/2024 Taiwo Mcintosh Diarrhea R19.7 ; Yonis sea R11.0 and Chronic GERD K21.9 [facility] [address] [address] 02/26/2024 Taiwo Mcintosh [facility] [address] [address] 03/29/2024 Taiwo Mcintosh ASSESSMENTS Encounter Date Diagnosis [...] Date MEDICARE OF [place] [address] [place] [address] [phone] [id number] NANCY VORA Self - patient is the insured [facility] [address] [address] [place] [address] [id number] NANCY VORA Self - patient is the insured MEDICAL (GENERAL) HISTORY Medical History History ICD Code Denies [place],CVA,Lung disease,renal disease IDDM Hypertension Kidney stones Negative [...]
--- NOTE | 2024-09-30 09:56 | MHC.AU.HA3 ---
Hearing Instrument Follow-Up- Binaural Date of Visit: 09/30/24 Right Ear: Make, Model, Color, Serial Number: Pedrito Virto P70 ITCs SN: [id number] Color: Lapel Senior [employer] Repair Warranty: 01/01/2027 Senior [employer] Loss and Damage Warranty: 01/01/2027 [facility] Service Plan: 12/16/2024 Battery Size: 312 Type of Wax Guard: CeruStop Dispensed By: [facility] Date of Fittin Left Ear: Make, Model, Color, Serial Number: Radhaak Virto P70 ITCs SN: [id number] Color: Lapel Senior [employer] Developer Repair Warranty: 01/01/2027 Senior [employer] Loss and Damage Warranty: 01/01/2027 [facility] Service Plan: 12/17/2023 Battery Size: 312 Type of Wax Guard: CeruStop Dispensed By: [facility] Date of Fittin12/17/2023 Follow-Up Summary: Kayleen reports her left hearing aid is not working and the right sounds fuzzy. She notes she has just changed the wax guards a couple days ago. Notes continued issues with ear infections, states she has appt. with ENT, Dr. Santos, today. Otoscopy reveals red canals and thick appearing yellow mucus behind ear drums. Cleaned aids, replaced wax guards, left still not working despite wax guard change. Ran aids through dehumidifier. Listening check positive for both aids. Kayleen reports improvement. Recommendations: Recommendations: Hearing instrument follow-up or maintenance as needed. Diagnosis Code(s): Primary Diagnosis: H90.3 Bilateral Sensorineural Hearing Loss Signature: Provider: Jovanny Dickens, [facility]
== END 2024-09-30 09:10 | disposition home or self-care (01) ==
LOC: HO.HAP 09:09
PROVIDERS: Visit Provider Nurse Practitioner Family
DX: Z13.89 Encounter for screening for other disorder (principal)

== ENCOUNTER 2024-10-21 10:02 | Outpatient (REF) | payer SELFPAY ==
--- NOTE | 2024-10-21 12:31 | MHC.AU.HA3 ---
Hearing Instrument Follow-Up- Binaural Date of Visit: 10/21/24 Right Ear: Make, Model, Color, Serial Number: Phonbarrett Virto P70 ITCs SN: [id number] Color: [employer] Laboratory Director Repair Warranty: 01/01/2027 [employer] Laboratory Director Loss and Damage Warranty: 01/01/2027 [facility] Service Plan: 12/16/2024 Battery Size: 312 Type of Wax Guard: CeruStop Dispensed By: [facility] Date of Fittin Left Ear: Make, Model, Color, Serial Number: Radhaak Virto P70 ITCs SN: [id number] Color: [employer] Laboratory Director Repair Warranty: 01/01/2027 [employer] Laboratory Director Loss and Damage Warranty: 01/01/2027 [facility] Service Plan: 12/17/2023 Battery Size: 312 Type of Wax Guard: CeruStop Dispensed By: [facility] Date of Fittin12/17/2023 Follow-Up Summary: Kayleen reports left aid isn't working and left ear feels blocked up/ infected. Reports she took antibiotics and her ears briefly improved before clogging up again. Reports follow up with ENT Dr. Santos today. Both hearing aids have clogged wax guards. Replaced. Listening check positive right. Left ran through rotary drier, vacuumed out dyeing machine tender port- button controls VC, tone can be heard in right aid but no sound is coming from the left aid. Recommend send to gamemaster. Otoscopy reveals clear canals, yellow and cloudy TMs Au. Pt questions if aids are causing ear infections, advised this is unlikely as the issue appears to be middle ear. Recommendations: Recommendations: Patient will be contacted when materials have arrived. Diagnosis Code(s): Primary Diagnosis: H90.3 Bilateral Sensorineural Hearing Loss Signature: Provider: Jovanny Dickens, CCC-A
--- OUTSIDE RECORDS SUMMARY | 2024-10-21 13:09 | XMS_ITS | Clinical Summary ---
Author Organization [facility] Address [address] [place] [address] Care Team Providers Care Tape Librarian Name Role Phone John Herrera Primary Care Provider [phone] Allergies Active Allergy Reactions Criticality Noted Date Comments Ciprofibrate 11/26/2023 Orphenadrine 11/26/2023 Penicillins 11/26/2023 Sulfa Antibiotics 11/26/2023 Medications Medication Sig Dispensed Refills Start Date End Date Status atorvastatin (LIPITOR) tablet 10 mg Take 1 tablet (10 mg total) by mouth daily. 0 05/15/2023 Active buPROPion (WELLBUTRIN) 100 MG tablet Take 1 tablet (100 mg total) by mouth 2 (two) times a day. 0 06/04/2023 Active carvedilol (COREG) 25 MG tablet 0 06/03/2023 Active levothyroxine (SYNTHROID) tablet 50 mcg Take 1 tablet (50 mcg total) by mouth daily. 0 05/05/2023 Active Januvia 100 MG tablet Take 1 tablet (100 mg total) by mouth daily. 0 06/03/2023 Active insulin glargine (LANTUS) injection 100 units/mL Inject 10 Units under the skin every night at bedtime. 0 Active Active Problems No known active problems Social History Tobacco Use Types Packs/Day Years Used Date Smoking Tobacco: Never Assessed Sex and Gender Information Value Date Recorded Sex Assigned at Female 05/30/2023 11:45 AM EDT Gender Identity Not on file Sexual Orientation Not on file Job Start Date Occupation Industry Not on file Not on file Not on file Last Filed Vital Signs Vital Sign Reading Time Taken Comments Blood Pressure 153/55 11/26/2023 11:52 AM EST Pulse 55 11/26/2023 11:52 AM EST Temperature 37.3 ??C (99.2 ??F) 11/26/2023 11:[address] Respiratory Rate - - Oxygen Saturation 100% 11/26/2023 11:52 AM EST Inhaled Oxygen Concentration - - Weight 81.2 kg (179 lb) 11/26/2023 11:52 AM EST Height 152.4 cm (5') 11/26/2023 11:52 AM EST Body Mass Index 34.96 11/26/2023 11:52 AM EST Plan of Treatment Health Maintenance Due Date Last Done Comments Hepatitis C Screening 1945 COVID-19 Vaccine (#1) 1952 Pneumococcal Vaccine (1 of 2 - PCV) 1953 Depression Screening 1959 Preventative Health Evaluation 1965 DTap / Tdap / Td (1 - Tdap) 1966 Shingrix-Zoster Vaccine (1 of 2) 1966 Fall Risk Assessment 2012 Osteoporosis Screening (DEXA Scan) 2012 RSV Adult > 60+ Yrs or Pregn ant (1 - 1-dose 75+ series) 2022 Influenza Vaccine (#1) 2024 Hepatitis B Vaccines Aged Out No long er eligible based on patient's age to complete this topic RSV Ped < 20 months Aged Out No longe r eligible based on patient's age to complete this topic Care Teams Tape Librarian Relationship Specialty Start Date End Date John Herrera [address] [facility] [place] [address] PCP - General Family Medicine 05/30/23
--- OUTSIDE RECORDS SUMMARY | 2024-10-21 13:09 | XMS_ITS ---
Author Organization [facility] Address [address] [place] [address] Care Team Providers Care Medical Communication Specialist Name Role Phone CHANDU CHISHOLM Primary Care Provider Taiwo Azar Unavailable [phone] REASON FOR VISIT diarrhea,wt loss,nausea PROBLEMS Problem Type ICD Code Onset Dates Problem Status W/U Status Risk SNOMED Code Notes Problem Diverticulosis of large intestine without perforation or abscess without bleeding (K57.30) Active confirmed Diverticul ar disease of colon (123773133) Encounters Encounter Location Date Provider Diagnosis [facility] [place] [address], [place] [id number] 03/26/2024 Taiwo Mcintosh Diarrhea R19.7 ; W [...]
--- OUTSIDE RECORDS SUMMARY | 2024-10-21 13:09 | XMS_ITS | Patient Health Record ---
Author Organization [facility] Address [address] [place] [address] Care Team Providers Care Conductor/Brakeman Name Role Phone CHANDU CHISHOLM Primary Care Provider Taiwo Azar [phone] ALLERGIES Allergen (clinical drug ingredient) Drug/Non Drug [...] EIA Reviewed date:03/15/2024 10:33:39 PM Interpretation: Performing Lab:[address] [address] Notes/Report: Giardia Ag Stool EIA SEE NOTE GIARDIA AG, EIA, STOOL Micro Number: [id number] Test Status: Final Specimen Source: Stool Specimen Quality: Adequate Giardia Result 1: Not Detected Reference Range: Not Detected NOTE: Due to intermittent shedding, one negative sample does not necessarily rule out the presence of a parasitic infection. THIS TEST WAS PERFORMED AT: [facility] [address] [place] [address] DESTINY AUGUSTE MD Calprotectin, Fecal Reviewed date:03/06/2024 01:39:27 PM Interpretation: Performing Lab:[address] [address] Notes/Report: Calprotectin, Fecal 12 Reference Range: <50 [...] borderline values. THIS TEST WAS PERFORMED AT: [facility] [address] [place] [address] TERRELL YU MD,PHD,TRIXIE Ova and Parasite Reviewed date:03/15/2024 10:37:24 PM Interpretation: Performing Lab:[address] [address] Notes/Report: Ova and Parasite SEE NOTE OVA AND PARASITES, CONC AND PERM SMEAR Micro Number: [id number] Test Status: Final Specimen Source: Specimen Quality: [...] infection. For additional information, please refer to https://education.Confluent ([employer])/faq/YHG373 (This link is being provided for informational/ educational purposes only.) THIS TEST WAS PERFORMED AT: [facility] [address] MORA LONDON MD GI PANEL Reviewed date:02/28/2024 01:39:07 PM Interpretation: Performing Lab:[address] [address] Notes/Report: Campylobacter Not Detected Not Detect. Plesiomonas [...] is performed by Multiplexed PCR, utilizing the Skuid Array. Complete Blood Count Auto Di ff Reviewed date:02/26/2024 11:50:55 PM Interpretation: Performing Lab:[facility], [address] [place] [address] Notes/Report: White Blood Count 5.6 4.8-10.8 X10*3/uL [...] te Reviewed date:02/26/2024 11:55:54 PM Interpretation: Performing Lab:[address] [address] Notes/Report: Erythrocyte Sedimentation Rate 26 0-20 MM/HR Patients with polycythemia and many hemoglobin abnormalities may have depressed sed rates whereas patients with anemia may have elevated sed rates. Liver Panel Reviewed date:02/26/2024 11:51:08 PM Interpretation: Performing Lab:[facility], [address] [place] [address] Notes/Report: Bilirubin Total 0.7 0.0-1.0 mg/dL Bilirubin Direct 0.2 0.0-0.5 mg/dL Aspartate Amino Transferase 14 5-31 U/L Alanine Aminotransferase 10 0-31 U/L Total Protein 6.5 6.5-8.0 g/dL Albumin Level 3.9 3.5-5.0 g/dL Alkaline Phosphatase 77 39-117 U/L Basic Metabolic Panel Reviewed date:02/28/2024 01:38:31 PM Interpretation: Performing Lab:[address] [address] Notes/Report: Sodium 143 135-145 mmol/L Potassium 3.2 3.3-5.1 mmol/L Chloride 112 96-108 mmol/L Carbon Dioxide 24 22-29 mmol/L Anion Gap 10 12-20 Blood Urea Nitrogen 22 9-16 mg/dL Creatinine 0.94 0.5-1.4 mg/dL Estimated Glomerular Filt Rate 58 NOTE: For -Egyptian individuals, multiply the result by 1.210. Chronic Kidney Disease: Estimated GFR < 60 mL/min/1.73m2 Severe Kidney Disease: Estimated GFR < 15 mL/min/1.73m2 Glucose Random 121 60-115 mg/dL Calcium 9.7 8.4-10.2 mg/dL C Reactive Protein Reviewed date:02/26/2024 11:53:14 PM Interpretation: Performing Lab:[facility], [address] [place] [phone] Notes/Report: C Reactive Protein 0.13 < or = 0.50 mg/dL Immunoglobulin A Reviewed date:03/01/2024 11:35:45 PM Interpretation: Performing Lab:[facility], [address] [place] [address] Notes/Report: Immunoglobulin A 247 70-320 mg/dL THIS TEST WAS PERFORMED AT: [facility] [address] [place] [phone] DESTINY AUGUSTE MD Transglutaminase Ab IgG Reviewed date:03/01/2024 11:34:46 PM Interpretation: Performing Lab:[facility], [address] [place] [address] Notes/Report: Transglutaminase Ab IgG <1.0 Value Interpretation ----- <15.0 Antibody not detected > or = 15.0 Antibody detected THIS TEST WAS PERFORMED AT: [facility] [address] [place] [phone] DESTINY AUGUSTE MD Transglutaminase IgA Reviewed date:03/01/2024 11:34:36 PM Interpretation: Performing Lab:[facility], [address] [place] [phone] Notes/Report: Transglutaminase IgA <1.0 Value Interpretation ----- <15.0 Antibody not detected > or = 15.0 Antibody detected THIS TEST WAS PERFORMED AT: [facility] [address] [place] [phone] DESTINY AUGUSTE MD Gliadin Ab Panel Reviewed date:03/01/2024 11:34:29 PM Interpretation: Performing Lab:[facility], [address] [place] [phone] Notes/Report: Gliadin Deamidated IgA Ab <1.0 Value Interpretation ----- <15.0 Antibody not detected > or = 15.0 Antibody detected Gliadin Deamidated IgG Ab <1.0 Value Interpretation ----- <15.0 Antibody not detected > or = 15.0 Antibody detected THIS TEST WAS PERFORMED AT: [facility] [address] [place] [phone] DESTINY AUGUSTE MD Endomysial IgA rflx Titer Reviewed date:03/01/2024 11:34:22 PM Interpretation: Performing Lab:[facility], [address] [place] [address] Notes/Report: Endomysial IgA Antibody Negative Negative THIS TEST WAS PERFORMED AT: [facility]/[address] [address] DARRELL WESTBROOK MD,PHD Endomysial Titer TNP CDiff Gene PCR Reviewed date:02/28/2024 01:04:04 PM Interpretation: Performing Lab:[facility], [address] [place] [address] Notes/Report: CDiff Gene PCR NEGATIVE Negative If C. difficile strongly suspected despite one negative test, a second test may be sent vs. empiric treatment for C. difficile infection. Prothrombin Time INR Reviewed date:03/27/2024 09:51:04 PM Interpretation: Performing Lab:[facility], [address] [place] [address] Notes/Report: Prothrombin Time 11.0 11.1-13.3 [employer] [...] Electrolytes Reviewed date:03/27/2024 09:50:56 PM Interpretation: Performing Lab:[facility], [address] [place] [address] Notes/Report: Sodium 139 135-145 mmol/L Potassium 3.7 3.3-5.1 mmol/L Chloride 109 96-108 mmol/L Carbon Dioxide 20 22-29 mmol/L Anion Gap 14 12-20 Glucose, Whole Blood Reviewed date:03/27/2024 09:50:45 PM Interpretation: Performing Lab:[facility], [address] [place] [address] Notes/Report: Glucose, Whole Blood 85 60-115 mg/dL METER # : [id number] Pathology Reviewed date:08/10/2024 10:51:18 AM Interpretation: Performing Lab:[facility], [address] [place] [phone] Notes/Report: REASON FOR REFERRAL No Information MEDICATIONS Medication SIG (Take, Route, Frequency, Duration) Notes Start Date End Date Status Omeprazole 20 MG TAKE 1 CAPSULE BY [facility] EVERY MORNING for 30 Active Imodium A-D 2 MG 1 or [...] for nausea for 30 day(s) 02/25/2024 Active buPROPion HCl 100 MG 1 [...] Problem Hypertension, unspecified type (I10) Active confirmed 34242727 Problem Encounter for screening for malignant neoplasm of colon (Z12.11) Active confirmed 853620880 Problem Preprocedural examination (Z01.818) Active confirmed [id number] Problem Encntr long-term NSAID use (Z79.1) Active confirmed 243671574 Problem Nausea (R11.0) Active confirmed Nausea (745793264) Problem Diarrhea (R19.7) Active confirmed Diarr hea (24852664) Problem Weight loss (R63.4) Active confirmed Weight loss (715910718) Problem Diverticulosis of large intestine without perforation or abscess without bleeding (K57.30) Active confirmed Diverticul ar disease of colon (500928064) Problem Chronic GERD (K21.9) Active confirmed Gastroesophagea l reflux disease (disorder) (352138323) VITAL SIGNS Temperature 96.9 degrees Fahrenheit 02/25/2024 Blood pressure diastolic 00 mm Hg 08/10/2024 Height 61 in 08/10/2024 Blood pressure systolic 00 mm Hg 08/10/2024 Weight 174 lbs 08/10/2024 BMI 32.87 kg/m2 08/10/2024 Encounters Encounter Location Date Provider Diagnosis [facility] [place] [address] [place] [phone] 03/26/2024 Taiwo Mcintosh Diarrhea R19.7 ; Dallin ght loss R63.4 ; Diverticulosis of large intestine without perforation or abscess without bleeding K57.30 ; Other hemorrhoids K64.8 ; Nausea R11.0 and Hiatal hernia K44.9 [facility] [address] [place] [phone] 02/25/2024 Taiwo Mcintosh Nausea R11.0 ; Diarr hea R19.7 and Weight loss R63.4 [facility] [address] [phone] 08/10/2024 Taiwo Mcintosh Diarrhea R19.7 ; Yonis sea R11.0 and Chronic GERD K21.9 [facility] [address] [address] 02/26/2024 Taiwo Mcintosh [facility] [address] [address] 03/29/2024 Taiwo Mcintosh ASSESSMENTS Encounter Date Diagnosis [...] Date MEDICARE OF [place] [address] [place] [address] [phone] [id number] NANCY VORA Self - patient is the insured [facility] [address] [address] [place] [address] [phone] [id number] NANCY VORA Self - patient is the insured MEDICAL (GENERAL) HISTORY Medical History History ICD Code Denies MD,CVA,Lung disease,renal disease IDDM Hypertension Kidney stones Negative [...]
--- OUTSIDE RECORDS SUMMARY | 2024-10-21 13:09 | XMS_ITS | Encounter Summary ---
Author Organization [facility] Address [address] [place] [address] Phone Care Team Providers Care Retail Personal Banker Name Role Phone John Herrera NP Primary Care Provider [phone] Reason for Visit * Reason Comments Med Refill Encounter Details Date Type Department Care Team (Late st Contact Info) Description 11/15/2023 Refill [facility] [address] [place] [phone] Karson Law MD Social History Tobacco Use Types Packs/Day Years Used Date Smoking Tobacco: Never Smokeless Tobacco: Never Alcohol Use Standard Drinks/Week Comments Yes 0 (1 standard drink = 0.6 oz pure alcohol) Alcoholic Drinks/day: Occasional social drink Comments Unknown Sex and Gender Information Value Date Recorded Sex Assigned at Not on file Legal Sex Female 4:58 PM EST Gender Identity Not on file Sexual Orientation Not on file documented as of this encounter Miscellaneous Notes * Telephone Encounter - Willem Lindsey MD - 11/18/2023 9:13 AM EST duplicate documented in this encounter Plan of Treatment Not on file documented as of this encounter Visit Diagnoses Not on filedocumented in this encounter Care Teams Retail Personal Banker Relationship Specialty Start Date End Date John Herrera NP [address] [facility] [place] [address] PCP - General Nurse Practitioner 09/05/21 documented as of this encounter
--- OUTSIDE RECORDS SUMMARY | 2024-10-21 13:09 | XMS_ITS | Encounter Summary ---
Author Organization [facility] Address [address] [place] [address] Care Team Providers Care Crawler Dragline Operator Name Role Phone John Herrera MD Primary Care Provider [phone] Encounter Details Date Type Department Care Team (Late st Contact Info) Description 02/03/2024 Scanned Document [facility] Department of Internal Medicine & Nephrology [address] [phone] Karson Law MD [address] [place] [phone] Social History Tobacco Use Types Packs/Day Years Used Date Smoking Tobacco: Never Assessed Sex and Gender Information Value Date Recorded Sex Assigned at Not on file Gender Identity Not on file Sexual Orientation Not on file documented as of this encounter Plan of Treatment Upcoming Encounters Date Type Department Care Team (Late st Contact Info) Description 03/18/2025 10:20 AM EDT Office Visit [facility] Department of Internal Medicine & Nephrology [place] [address] [place] [address] Karson Law MD [address] [phone] documented as of this encounter Visit Diagnoses Not on filedocumented in this encounter Care Teams Crawler Dragline Operator Relationship Specialty Start Date End Date John Herrera MD [address] [place] [address] PCP - General Family Medicine 02/03/24 documented as of this encounter
--- OUTSIDE RECORDS SUMMARY | 2024-10-21 13:10 | XMS_ITS | Encounter Summary ---
Author Organization [facility] Address [address] [facility] [address] [place] [address] Phone Care Team Providers Care Marketing Community Liaison Name Role Phone John Herrera NP Primary Care Provider [phone] Encounter Details Date Type Department Care Team (Late st Contact Info) Description 09/22/2024 Orders Only [facility] [address] [facility] [address] [place] [phone] Maria A Mendez ARNP [address] [facility] [address] [place] [phone] Stage 3b chronic kidney disease (HCC); Hypertension; Type 2 diabetes mellitus with diabetic chronic kidney disease (HCC) Social History Tobacco Use Types Packs/Day Years [...] as of this encounter Plan of Treatment Not on file documented as of this encounter Visit Diagnoses Diagnosis Stage 3b chronic kidney disease (HCC) Hypertension Type 2 diabetes mellitus with diabetic chronic kidney disease (HCC) documented in this encounter Care Teams Marketing Community Liaison Relationship Specialty Start Date End Date John Herrera NP [address] [place] [address] PCP - General Nurse Practitioner 09/05/21 documented as of this encounter
--- OUTSIDE RECORDS SUMMARY | 2024-10-21 13:10 | XMS_ITS ---
Author Organization [facility] Address [address] [place] [address] Care Team Providers Care Computer Support Technician Name Role Phone CHANDU CHISHOLM Primary Care Provider Taiwo Azar [phone] Encounters Encounter Location Date Provider Diagnosis [facility] [address] [place] [address] 03/29/2024 Taiwo Mcintosh PLAN OF TREATMENT No Information
--- OUTSIDE RECORDS SUMMARY | 2024-10-21 13:10 | XMS_ITS | Clinical Summary ---
Author Organization [facility] Address [address] [facility] [address] [place] [address] Phone Care Team Providers Care Tick Inspector Name Role Phone John Herrera NP Primary Care Provider [phone] Allergies Active Allergy Reactions Criticality Noted Date Comments Ciprofloxacin Itching,Other (see comments) 01/18/2021 Cephalexin 01/19/2021 Penicillins Itching,Other (see comments) 01/18/2021 Sulfa Antibiotics 01/19/2021 Sulfamethoxazole-Trimethoprim Other (see comments) 01/18/2021 Medications atorvastatin (LIPITOR) 10 MG tablet Take 1 tablet by mouth 1 (one) time each day Active insulin glargine (Lantus SoloStar) 100 UNIT/ML injection as directed Active SITagliptin (JANUVIA) 100 MG tablet Take 1 tablet by mouth 1 (one) time each day Active levothyroxine (SYNTHROID, LEVOTHROID) 50 MCG tablet Take 50 mcg by mouth 1 (one) time each day Active buPROPion (WELLBUTRIN) 100 MG tablet Take 50 mg by mouth in the morning and 50 mg in the evening. 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 Hypertensive disorder 01/18/2021 Muscle pain 01/18/2021 Type 2 diabetes mellitus 01/18/2021 Encounters Date Type Department Care Team Description 09/22/2024 Orders Only [facility] [address] [place] [address] Maria A Mendez ARNP Stage 3b chronic kidney disease (HCC); Hypertension; Type 2 diabetes mellitus with diabetic chronic kidney disease (HCC) from Last 3 Months Family History Medical History Relation Comments Diabetes Father Heart disease Father Hypertension Father Relation Status Comments Father Mother Social History Tobacco Use Types Packs/Day Years Used Date Smoking Tobacco: Never Smokeless Tobacco: Never Tobacco Cessation:Counseling Given: Not Answered Alcohol Use Standard Drinks/Week Comments Yes 0 (1 standard drink = 0.6 oz pure alcohol) Alcoholic Drinks/day: Occasional social drink Comments Unknown Sex and Gender Information Value Date Recorded Sex Assigned at Not on file Legal Sex Female 4:58 PM EST Gender Identity Not on file Sexual Orientation Not on file Last Filed Vital Signs Vital Sign Reading Time Taken Comments Blood Pressure 132/80 10/09/2023 10:18 AM EST Pulse 60 10/09/2023 10:18 AM EST Temperature - - Respiratory Rate - - Oxygen Saturation 97% 04/08/2022 12:54 PM EDT Inhaled Oxygen Concentration - - Weight 79.8 kg (176 lb) 10/09/2023 10:18 AM EST Height 154.9 cm (5' 1 ) 07/21/2020 12:01 PM EDT Body Mass Index 33.25 07/21/2020 12:01 PM EDT Plan of Treatment Health Maintenance Due Date Last Done Comments Pneumococcal Vaccine: 65+ Years (1 of 2 - PCV) 1951 Diabetes: Ophthalmology Exam 10/22/2020 Diabetes: Pedal Pulse Checked 10/22/2020 Diabetes: Sensory Foot Exam 10/22/2020 Diabetes: Visual Foot Exam 10/22/2020 Diabetes: Hemoglobin A1C 01/12/2023 023, 01/22/2022, 01/19/2021 Influenza Vaccine (#1) 2024 Hepatitis B Vaccine Aged Out No longe r eligible based on patient's age to complete this topic Procedures Procedure Name Priority Date/Time Associated Diagnosis Comments HEMOGLOBIN A1C Routine 10/14/2022 4:03 PM EST Essential (primary) hypertension Type 2 diabetes mellitus with diabetic nephropathy (HCC) Acute kidney injury due to circulatory failure (HCC) Analgesic nephropathy Stage 3b chronic kidney disease (HCC) Nephrolithiasis Secondary hyperparathyroidism of renal origin (HCC) Secondary hypercalcemia Hyperkalemia from Last 3 Months or Most Recently Relevant to Health Maintenance Results * Hemoglobin A1c (10/14/2022 4:03 PM EST) Hemoglobin A1C 5.4 (4.0-5.6) % [facility] Comment: MONITORING: In known diabetic patients, hemoglobin A1c targets should be discussed with health care provider. DIAGNOSTIC USE: ??The [place] Diabetes Association (ADA) and the World Health Organization (WHO) recommend the use of HbA1c to diagnose diabetes using a threshold of 6.5%. Patients who have an HbA1c between 5.7% and 6.4% are considered at increased risk for developing diabetes in the future. CAUTION: Falsely low HbA1c results may be observed in patients with hemolytic anemia, homozygous forms of abnormal hemoglobin (e.g. SS, CC, SC), , recent blood loss or hemoglobin F greater than 7%. Fructosamine may be used as an alternate test in these cases. REFERENCE: ADA: Standards of Medical Care in Diabetes 2020, The Journal of Clinical and Applied Research and Education Volume 43, Supplement 1 Testing performed or reported by [facility], a Service of [facility], [address] [place] [address] Niall Pinto MD, Manager [employer] [facility]# [id number] Blood (Blood, Venous) 10/14/2022 4:03 PM EST 10/14/2022 4:05 PM EST us Karson Law MD LAB BLOOD ORDERABLES Carol rasmussen Result [facility] from Last 3 Months or Most Recently Relevant to Health Maintenance Insurance [employer] MEDICARE [facility] MEDICARE Care Teams Tick Inspector Relationship Specialty Start Date End Date John Herrera NP [address] [place] [address] PCP - General Nurse Practitioner 09/05/21
--- OUTSIDE RECORDS SUMMARY | 2024-10-21 13:10 | XMS_ITS | Encounter Summary ---
Author Organization [facility] Address [address] [place] [address] Care Team Providers Care Fire Boat Engineer Name Role Phone John Herrera MD Primary Care Provider Encounter Details Date Type Department Care Team (Late st Contact Info) Description 10/19/2024 Telephone [facility] Department of Internal Medicine [place] [address] [place] [phone] John Herrera MD [address] [place] [address] Social History Tobacco Use Types Packs/Day Years Used Date Smoking Tobacco: Never Assessed Sex and Gender Information Value Date Recorded Sex Assigned at Not on file Gender Identity Not on file Sexual Orientation Not on file documented as of this encounter Miscellaneous Notes * Telephone Encounter - Zarina Doan MA - 10/19/2024 3:57 PM EST Pt's PCP wants her to take an allergy med, Which allergy med would you recommend for her due to herdx of kidney disease documented in this encounter Plan of Treatment Upcoming Encounters Date Type Department Care Team (Late st Contact Info) Description 03/18/2025 10:20 AM EDT Office Visit [facility] Department of Internal Medicine & Nephrology [place] [address] [place] [phone] Karson Law MD [address] [address] documented as of this encounter Visit Diagnoses Not on filedocumented in this encounter Care Teams Fire Boat Engineer Relationship Specialty Start Date End Date John Herrera MD [address] [place] [address] PCP - General Family Medicine 02/03/24 documented as of this encounter
--- OUTSIDE RECORDS SUMMARY | 2024-10-21 13:10 | XMS_ITS | Clinical Summary ---
Author Organization [facility] Address [address] [place] [address] Care Team Providers Care Coupon Clerk Name Role Phone John Herrera MD Primary Care Provider Allergies Active Allergy Reactions Criticality Noted Date Comments Cephalexin Other (See Comments) 01/19/2021 Bloating in face, itchy Ciprofibrate Other (See Comments) 11/26/2023 Bloating and itchy Ciprofloxacin Itching,Other (See Comments) Low 01/18/2021 Orphenadrine Other (See Comments) 11/26/2023 Bloating and itchy Penicillins Itching,Other (See Comments) Low 01/18/2021 Sulfa Antibiotics Other (See Comments) 01/20/20 21 Bloating and itchy Sulfamethoxazole-Trimeth oprim Other (See Comments) 01/18/2021 Medications Medication Sig Dispensed Refills Start Date End Date Status atorvastatin (LIPITOR) 10 MG tablet Take 10 mg by mouth daily. 05/15/2023 Active buPROPion (WELLBUTRIN) 100 MG tablet Take 1 tablet by mouth 2 (two) times a day. 06/04/2023 Active carvedilol (COREG) 25 MG tablet 06/03/2023 Active insulin glargine (Lantus SoloStar) 100 units/mL prefilled pen injection See Admin Instructions. Active levothyroxine (SYNTHROID, LEVOTHROID) 50 MCG tablet Take 50 mcg by mouth daily. 05/05/2023 Active sitaGLIPtin (Januvia) 100 MG tablet Take 100 mg by mouth daily. 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 02/09/2024 Nephrolithiasis 02/09/2024 Encounters Date Type Department Care Team Description 10/19/2024 Telephone [facility] Department of Internal Medicine [place] [address] [place] [address] John Herrera MD 08/13/2024 10:00 AM EST Office Visit [facility] Department of Internal Medicine & Nephrology [place] [address] [place] [phone] Karson Law MD Secondary hyperparathyroidism (HCC) (Primary Dx); Hypovitaminosis D; CKD (chronic kidney disease) stage 2, GFR 60-89 ml/min; Essential hypertension; Anemia associated with chronic renal failure; Diabetic nephropathy associated with type 2 diabetes mellitus (HCC); Nephrolithiasis 08/13/2024 Orders Only [facility] Department of Internal Medicine & Nephrology [place] [address] [place] [address] Karson Law MD Secondary hyperparathyroidism (HCC); Hypovitaminosis D; CKD (chronic kidney disease) stage 2, GFR 60-89 ml/min; Essential hypertension; Anemia associated with chronic renal failure; Diabetic nephropathy associated with type 2 diabetes mellitus (HCC); Nephrolithiasis from Last 3 Months Social History Tobacco Use Types Packs/Day Years Used Date Smoking Tobacco: Never Assessed Sex and Gender Information Value Date Recorded Sex Assigned at Not on file Gender Identity Not on file Sexual Orientation Not on file Last Filed Vital Signs Vital Sign Reading Time Taken Comments Blood Pressure 146/80 08/13/2024 10:16 AM EST Pulse 64 08/13/2024 10:16 AM EST Temperature - - Respiratory Rate - - Oxygen Saturation 98% 08/13/2024 10:16 AM EST Inhaled Oxygen Concentration - - Weight 78.9 kg (174 lb) 08/13/2024 10:16 AM EST Height - - Body Mass Index - - Plan of Treatment Upcoming Encounters Date Type Department Care Team (Late st Contact Info) Description 03/18/2025 10:20 AM EDT Office Visit [facility] Department of Internal Medicine & Nephrology [place] [address] [place] [address] Karson Law MD [address] [facility] [address] [place] [address] Health Maintenance Due Date Last Done Comments Hepatitis C Virus Screening 1947 Foot Exam 1957 Lipid Panel 1957 Ophthalmology Exam 1957 Microalbumin/Creatinine Rati o Urine 1965 DTaP/Tdap/Td Vaccines (1 - Tdap) 1966 Pneumococcal Vaccines 50+ (1 of 2 - PCV) 1966 Zoster (Shingles) Vaccine (1 of 2) 1997 DXA Bone Density (Females,Ag es 65 and older) 2012 RSV Vaccine 60 years and old er and Patients (1 - 1-dose 75+ series) 2022 Influenza Vaccine 04/22/2024 COVID-19 Vaccine ( - 2023-2 5 season) 2024 Hemoglobin A1C 02/07/2025 08/10/2024 Creatinine with GFR 08/10/2025 08/10/2024 Hepatitis B Vaccines Aged Out No long er eligible based on patient's age to complete this topic Procedures Procedure Name Priority Date/Time Associated Diagnosis Comments PROTEIN, TOTAL, RANDOM URINE WITH CREATININE Routine 08/10/2024 2:47 PM EST ALBUMIN, RANDOM URINE Routine 08/10/2024 2:47 PM EST FERRITIN Routine 08/10/2024 2:47 PM EST PHOSPHORUS Routine 08/10/2024 2:47 PM EST URIC ACID Routine 08/10/2024 2:47 PM EST IRON AND TOTAL IRON BINDING CAPACITY Routine 08/10/2024 2:47 PM EST VITAMIN D, 25-HYDROXY Routine 08/10/2024 2:47 PM EST BASIC METABOLIC PANEL Routine 08/10/2024 2:47 PM EST SPECIMEN STATUS REPORT Routine 08/10/2024 2:47 PM EST HEMOGLOBIN A1C Routine 08/10/2024 2:47 PM EST TRANSFERRIN Routine 08/10/2024 2:47 PM EST Secondary hyperparathyroidism (HCC) Hypovitaminosis D CKD stage 3b, GFR 30-44 ml/min (HCC) Essential hypertension Anemia associated with chronic renal failure VITAMIN D 1,25 DIHYDROXY Routine 08/10/2024 2:47 PM EST Secondary hyperparathyroidism (HCC) Hypovitaminosis D CKD stage 3b, GFR 30-44 ml/min (HCC) Essential hypertension Anemia associated with chronic renal failure PTH, INTACT WITH IONIZED CALCIUM Routine 08/10/2024 2:47 PM EST Secondary hyperparathyroidism (HCC) Hypovitaminosis D CKD stage 3b, GFR 30-44 ml/min (HCC) Essential hypertension Anemia associated with chronic renal failure from Last 3 Months Results * Specimen Status Report (08/10/2024 2:47 PM EST) SPECIMEN STATUS REPORT COMMENT [facility] 1 Comment: Jenn Toro BMP8 Default Jenn Toro BMP8 Default A hand-written panel/profile was received from your office. In accordance with the [facility] Ambiguous Test Code Policy dated March 2003, we have completed your order by using the closest currently or formerly recognized AMA panel. ??We have assigned Basic Metabolic Panel (8), Test Code #801540 to this request. If this is not the testing you wished to receive on this specimen, please contact the [facility] Client Inquiry/Technical Services Department to clarify the test order. ??We appreciate your business. 08/10/2024 2:47 PM EST 08/10/2024 Narrative [facility] (YUE) - 08/11/2024 6:10 AM EST Performed at: ??01 - [facility] [address] ??[id number] Peoplesoft Analyst: Suzi Stern MD, Phone: ??[phone] Karson Law MD LAB BLOOD ORDERAB LES Performing Organization Address [facility]/ZIP Co de Phone Number [facility] ([place]) [facility] 1 * Albumin, Random Urine (08/10/2024 2:47 PM EST) Albumin, Urine 167.3 Not Estab. ug/mL [facility] 1 08/10/2024 2:47 PM EST 08/10/2024 Narrative [facility] ([place]) - 08/11/2024 1:07 PM EST Performed at: ??01 - [facility] [address] ??[id number] Peoplesoft Analyst: Suzi Stern MD, Phone: ??[phone] Karson Law MD URINE ORDERABLES Performing Organization Address [facility] Co de Phone Number [facility] ([place]) [facility] 1 * (ABNORMAL) PROTEIN, TOTAL, RANDOM URINE, W/CREATININE (08/10/2024 2:47 PM EST) Urine Creatinine 143.7 Not Estab. mg/dL [facility] 1 Protein,Total Urine 83.4 Not Estab. mg/dL [facility] 1 Protein/Creatin ine Ratio, Urine 580(H) 0 - 200 mg/g creat [facility] 1 08/10/2024 2:47 PM EST 08/10/2024 Narrative [facility] (YUE) - 08/11/2024 3:07 PM EST Performed at: ??01 - [facility] [address] ??[id number] Peoplesoft Analyst: Suzi Stern MD, Phone: ??[phone] Karson Law MD URINE ORDERABLES Performing Organization Address [facility] Co de Phone Number [facility] ([place]) [facility] 1 * (ABNORMAL) Iron and Total Iron Binding Capacity (08/10/2024 2:47 PM EST) Pathologist [facility] Total Iron Binding Capacity 240(L) 250 - 450 ug/dL [facility] 1 UIBC 166 118 - 369 ug/dL [facility] 1 Iron 74 27 - 139 ug/dL [facility] 1 Iron Saturation 31 15 - 55 % [facility] 1 08/10/2024 2:47 PM EST 08/10/2024 Narrative [facility] ([place]) - 08/11/2024 8:13 AM EST Performed at: ??01 - [facility] [address] ??[id number] Peoplesoft Analyst: Suzi Stern MD, Phone: ??[phone] Karson Law MD LAB BLOOD ORDERAB LES Performing Organization Address City/[facility]/ZIP Co de Phone Number [facility] ([place]) [facility] 1 * PTH, INTACT WITH IONIZED CALCIUM (08/10/2024 2:47 PM EST) [facility] [address] Calcium, Ionized 5.3 4.5 - 5.6 mg/dL [facility] 1 PTH, Intact 31 15 - 65 pg/mL [facility] 1 Blood specimen (specimen) Blood specimen / Unknown 08/10/2024 2:47 PM EST 08/10/2024 Narrative [facility] ([place]) - 08/11/2024 6:06 PM EST Performed at: ??01 - [facility] [address] ??[id number] Peoplesoft Analyst: Suzi Stern MD, Phone: ??[phone] Karson Law MD LAB BLOOD ORDERAB LES [facility] ([facility] 1 * VITAMIN D 1,25 DIHYDROXY (08/10/2024 2:47 PM EST) [facility] [address] Vit D 1,25 di-OH 45.1 24.8 - 81.5 pg/mL [facility] 1 Blood specimen (specimen) Blood specimen / Unknown 08/10/2024 2:47 PM EST 08/10/2024 Narrative [facility] ([place]) - 08/12/2024 3:07 PM EST Performed at: ??01 - [facility] [address] ??[id number] Peoplesoft Analyst: Suzi Stern MD, Phone: ??[phone] Karson Law MD LAB BLOOD ORDERAB LES Performing Organization Address [facility] Co de Phone Number [facility] ([place]) [facility] 1 * VITAMIN D, 25-HYDROXY (08/10/2024 2:47 PM EST) Vitamin D, 25-Hydroxy 31.7 30.0 - 100.0 ng/mL [facility] 1 Comment: Vitamin D deficiency has been defined by the [place] of Medicine and an Endocrine Society practice guideline as a level of serum 25-OH vitamin D less than 20 ng/mL (1,2). The Endocrine Society went on to further define vitamin D insufficiency as a level between 21 and 29 ng/mL (2). 1. IOM ([place] of Medicine). 2010. Dietary reference ?? intakes for calcium and D. [place]: The ?? National Academies Press. 2. Bryant MF, Paty NC, Leonor SCHUSTER, et al. ?? Evaluation, treatment, and prevention of vitamin D ?? deficiency: an Endocrine Society clinical practice ?? guideline. JCEM. 2010; 96(7):1911-30. 08/10/2024 2:47 PM EST 08/10/2024 Narrative [facility] ([place]) - 08/11/2024 7:07 AM EST Performed at: ??01 - [facility] [address] ??[id number] Peoplesoft Analyst: Suzi Stern MD, Phone: ??[phone] Karson Law MD LAB BLOOD ORDERAB LES Performing Organization Address City/[facility]/ZIP Co de Phone Number [facility] ([place]) [facility] 1 * URIC ACID (08/10/2024 2:47 PM EST) Uric Acid 5.5 3.1 - 7.9 mg/dL [facility] 1 Comment: ? Therapeutic target for gout patients: <6.0 08/10/2024 2:47 PM EST 08/10/2024 Narrative [facility] ([place]) - 08/11/2024 8:13 AM EST Performed at: ??01 - [facility] [address] ??[id number] Peoplesoft Analyst: Suzi Stern MD, Phone: ??[phone] Karson Law MD LAB BLOOD ORDERAB LES [facility] ([place]) [facility] 1 * TRANSFERRIN (08/10/2024 2:47 PM EST) Transferrin 194 192 - 364 mg/dL [facility] 1 Blood specimen (specimen) Blood specimen / Unknown 08/10/2024 2:47 PM EST 08/10/2024 Narrative [facility] ([place]) - 08/11/2024 6:10 AM EST Performed at: ?? - [facility] [address] ??[id number] Peoplesoft Analyst: Suzi Stern MD, Phone: ??[phone] Karson Law MD LAB BLOOD ORDERAB LES [facility] ([place]) [facility] 1 * (ABNORMAL) PHOSPHORUS (08/10/2024 2:47 PM EST) Phosphorus 2.7(L) 3.0 - 4.3 mg/dL [facility] 1 08/10/2024 2:47 PM EST 08/10/2024 Narrative [facility] ([place]) - 08/11/2024 8:13 AM EST Performed at: ??01 - [facility] [address] ??[id number] Peoplesoft Analyst: Suzi Stern MD, Phone: ??[phone] Karson Law MD LAB BLOOD ORDERAB LES Performing Organization Address [facility] Co de Phone Number [facility] KIER[place]) [facility] 1 * (ABNORMAL) Hemoglobin A1C (08/10/2024 2:47 PM EST) Hemoglobin A1C 5.7(H) 4.8 - 5.6 % [facility] 1 Comment: ? Prediabetes: 5.7 - 6.4 ? Diabetes: >6.4 ? Glycemic control for adults with diabetes: <7.0 08/10/2024 2:47 PM EST 08/10/2024 Narrative [facility] ([place]) - 08/11/2024 6:10 AM EST Performed at: ??01 - [facility] [address] ??[id number] Peoplesoft Analyst: Suzi Stern MD, Phone: ??[phone] Karson Law MD LAB BLOOD ORDERAB LES Performing Organization Address [facility] Co de Phone Number [facility] K[place]) [facility] 1 * (ABNORMAL) FERRITIN (08/10/2024 2:47 PM EST) Pathologist [facility] Ferritin 221(H) 15 - 150 ng/mL [facility] 1 08/10/2024 2:47 PM EST 08/10/2024 Narrative [facility] KIERRA) - 08/11/2024 8:13 AM EST Performed at: ??01 - [facility] [address] ??[id number] Peoplesoft Analyst: Suzi Stern MD, Phone: ??[phone] Karson Law MD LAB BLOOD ORDERAB LES Performing Organization Address [facility]/State/ZIP Co de Phone Number [facility] K[place]) [facility] 1 * (ABNORMAL) BASIC METABOLIC PANEL (08/10/2024 2:47 PM EST) Glucose 107(H) 70 - 99 mg/dL [facility] 1 Blood Urea Nitrogen (BUN) 15 8 - 27 mg/dL [facility] 1 Creatinine 0.92 0.57 - 1.00 mg/dL [facility] 1 eGFR 64 >59 mL/min/1.7 3 [facility] 1 BUN/Creatinine Ratio 16 12 - 28 [facility] 1 Sodium 142 134 - 144 mmol/L [facility] 1 Potassium 4.0 3.5 - 5.2 mmol/L [facility] 1 Chloride 109(H) 96 - 106 mmol/L [facility] 1 CARBON DIOXIDE 20 20 - 29 mmol/L [facility] 1 Calcium 9.4 8.7 - 10.3 mg/dL [facility] 1 08/10/2024 2:47 PM EST 08/10/2024 Narrative [facility] ([place]) - 08/11/2024 7:07 AM EST Performed at: ??01 - [facility] [address] ??[id number] Peoplesoft Analyst: Suzi Stern MD, Phone: ??[phone] Karson Law MD LAB BLOOD ORDERAB LES [facility] [place]) [facility] 1 from Last 3 Months Care Teams Coupon Clerk Relationship Specialty Start Date End Date John Herrera MD [address] [place] [address] PCP - General Family Medicine 02/03/24
--- OUTSIDE RECORDS SUMMARY | 2024-10-21 13:10 | XMS_ITS | Data Portability ---
Author Organization [facility] Address [address] [place] [id number] Care Team Providers Care Business Analyst Ecommerce Name Role Phone CHANDU CHISHOLM Primary Care Provider [phone] Assessment Encounter Date Assessment Date Assessment LastModified by Organization Details LastModified Time 01/27/2024 01/27/2024 Kayleen Wilson is a 78 year old woman with complaints of low back pain radiating into both hips. She is here for a Lumbar epidural steroid injection under fluoroscopic guidance . The risks and benefits of the procedure? ? ? were discussed in detail. She wishes to proceed. She will follow up in three months [email or web address] Not available 01/27/2024 10:33:28 05/26/2024 05/26/2024 Kayleen Wilson is a 78 year old woman with left sided low back pain which is worse for the past few months. On exam, She has limited Range of motion of the lumbar spine . Facet loading is positive on the left. Tenderness is elicited in left lumbar region L2-3 and L3-4 levels . Currently her back pain is her worse pain.? ? ? Trial of Lumbar facet? ? ? joint steroid injections at L2-3 and L3-4 levels on the left side under fluoroscopic guidance was recommended. The risks and benefits of the procedure? ? ? were discussed in detail. She wishes to proceed. 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 [email or web address] Not available 05/26/2024 15:29:03 06/01/2024 06/01/2024 Kayleen Wilson is a 78 year old woman with left sided low back pain which is worse for the past few months. On exam, She has limited Range of motion of the lumbar spine . Facet loading is positive on the left. Tenderness is elicited in left lumbar region L2-3 and L3-4 levels . Currently her back pain is her worse pain.? ? ? She is here for a trial of Lumbar facet? ? ? joint steroid injections at L2-3 and L3-4 levels on the left side under fluoroscopic guidance . The risks and benefits of the procedure? ? ? were discussed in detail. She wishes to proceed. She will call in one week if beneficial. She may be a candidate for a RFA [email or web address] Not available 06/01/2024 11:31:00 06/23/2024 06/23/2024 Kayleen Wilson is a 78 year old woman with complaints of low back pain radiating into both hips. She is here for a Lumbar epidural steroid injection under fluoroscopic guidance . The risks and benefits of the procedure? ? ? were discussed in detail. She wishes to proceed. She will follow up in three months ora Not available 06/23/2024 10:38:54 08/16/2024 08/16/2024 Kayleen Wilson is a 79 year old woman with complaints of low back pain radiating into both hips. This is a follow up after a trial of Lumbar epidural steroid injections under fluoroscopic guidance . She reports 90% pain benefit which is ongoing. She will follow up for a repeat injection in October 2023. She was advised to continue with a home exercise program. She is having right sided mid back pain. I will trial lidocaine patches for her. She will follow up for lumbar epidural injection before her trip to [place] next year ora Not available 08/23/2024 11:41:24 Plan of Treatment Reminders Order Date Submit Date Provider Last Modified By Organization Details Last Modified Time Details Appointments PROCEDURE 2024 11:30A M Omar mayberry MD Not available Not available Not available Lab None recorded. Referral None recorded. Procedures None recorded. Surgeries None recorded. Imaging None recorded. Medication Orders lidocaine 5 % topical patch 2023 024 [id number] [address], [place], [id number], 08/16/2024 10:38:29 Patient TargetsNo targets recorded. Patient Instructions Encounter Date Encounter Id Patient Instructions Last Modified By Organization Details Last Modified Time 05/26/2024 [id number] She was advised against bed rest lasting longer than four days and to continue activities as tolerated. [email or web address] Not available 05/26/2024 15:26:50 06/01/2024 [id number] She was advised against bed rest lasting longer than four days and to continue activities as tolerated. [email or web address] Not available 06/01/2024 11:30:11 Reason for Referral None Reported. Problems Name Problem SNOMED Code Status Onset Date Resolution Date Notes Provider Name and Address Organization Details Recorded Time Degeneratio n of lumbar interverteb ral disc 50133005 Completed 04/29/2019 Omar mayberry MD [address] , [address], [place], [address], [place] [facility] 15:16:59 Degeneratio n of cervical interverteb ral disc 95805865 Active Omar mayberry MD [address] , [address], [place], [address], [place] [facility] 15:16:55 Muscle pain 85413599 Active Omar mayberry MD [address] , [address], [place], [address], [place] [facility] 15:17:16 Cervical spondylosis without myelopathy 463427772 Active Omar mayberry MD [address] , [address], [place], [address], [place] [facility] 15:17:31 Degeneratio n of thoracic interverteb ral disc 02816868 Active Omar mayberry MD [address] , [address], [place], [address], [place] [facility] 15:17:48 Osteoarthri tis of knee 860346350 Active Omar mayberry MD [address] , [address], [place], [address], [place] [facility] 15:53:33 Lumbosacral radiculopat hy 1572664 Active 2023 Omar mayberry MD [address] , [address], [place], [address], [place] [facility] 10:50:13 Problem Notes None recorded. Procedures Surgical History Date Name Laterality Status Provider Name and Address Organization Details Recorded Time 06/23/20 24 Lumbar Epidural steroid injection under fluoroscopic guidance completed Omar Coulter MD [address] , [address], [place], [address], [place] [facility] 06/23/2024 10:39:49 06/01/20 24 Fluoroscopic Guided Lumbar Facet Steroid Injections of levels completed Omar Coulter MD [address] , [address], [place], [address], [place] [facility] 06/01/2024 11:29:39 01/27/20 24 Lumbar Epidural steroid injection under fluoroscopic guidance completed Omar Coulter MD [address] , [address], [place], [address], [place] [facility] 01/27/2024 10:34:03 10/28/19 24 Lumbar Epidural steroid injection under fluoroscopic guidance completed Omar Coulter MD [address] , [address], [place], [address], [place] [facility] 10/28/2023 10:49:28 04/22/20 23 Lumbar Epidural steroid injection under fluoroscopic guidance completed Omar Coulter MD [address] , [address], [place], [address], [place] [facility] 04/22/2023 11:45:19 05/28/20 22 Lumbar Epidural steroid injection under fluoroscopic guidance completed Omar Coulter MD [address] , [address], [place], [address], [place] [facility] 05/29/2022 14:22:44 01/02/20 22 Lumbar Epidural steroid injection under fluoroscopic guidance completed Omar Coulter MD [address] , [address], [place], [address], [place] [facility] 01/01/2022 14:29:09 09/18/20 21 Lumbar Epidural steroid injection under fluoroscopic guidance completed Omar Coulter MD [address] , [address], [place], [address], [place] [facility] 09/19/2021 12:19:14 02/22/20 21 Intra-articular Knee Steroid Injection completed Omar Coulter MD [address] , [address], [place], [address], [place] [facility] 02/22/2021 14:06:45 02/16/20 21 Intra-articular Knee Steroid Injection completed Omar Coulter MD [address] , [address], [place], [address], [place] [facility] 02/15/2021 16:18:43 09/27/19 21 Thoracic Epidural Steroid injection under fluroscopic guidance completed Omar Coulter MD [address] , [address], [place], [address], [place] [facility] 09/27/2020 11:32:52 06/28/20 20 Trigger Point Injections under ultrasound guidance completed Omar Coulter MD [address] , [address], [place], [address], [place] [facility] 06/28/2020 14:43:13 02/10/20 20 Trigger Point Injections under ultrasound guidance completed Omar Coulter MD [address] , [address], [place], [address], [place] [facility] 02/10/2020 13:40:00 11/15/19 20 Trigger Point Injections under ultrasound guidance completed Omar Coulter MD [address] , [address], [place], [address], [place] [facility] 11/19/2019 09:42:53 10/25/19 20 Trigger Point Injections under ultrasound guidance completed Omar Coulter MD [address] , [address], [place], [address], [place] [facility] 10/25/2019 14:53:01 06/23/20 19 Trigger Point Injections under ultrasound guidance completed Omar Coulter MD [address] , [address], [place], [address], [place] [facility] 07/05/2019 11:23:51 06/07/20 19 Trigger Point Injections under ultrasound guidance completed Omar Coulter MD [address] [facility] , [address], [place], [address], [place] [facility] 06/07/2019 15:03:55 05/18/20 19 Trigger Point Injections under ultrasound guidance completed Omar Coulter MD [address] [facility] , [address], [place], [address], [place] [facility] 05/19/2019 09:45:26 Hysterectomy completed Missy Hansen [place] [facility] 04/29/2019 13:26:48 Cholecystectomy completed Missy Hansen [facility] 04/29/2019 13:27:00 Other completed Missy Hansen [facility] 04/29/2019 13:28:52 Carpal tunnel release completed Missy Hansen [facility] 04/29/2019 13:29:05 section completed Missy Hansen [facility] 04/29/2019 14:06:18 total knee replacement completed Omar Coulter MD [address] [facility] , [address], [place], [address], [place] [facility] 10/28/2023 10:49:05 Imaging Results None recorded. Procedure Notes None recorded. Medical Equipment None Reported. Allergies Allergen ID Allergen Name Allergen Category Reaction Reaction Severity Criticality Documentation Date Start Date Code Code System Note Provider Name and Address Organization Details Recorded Time 37361 Product containin g penicilli n and antibioti c (product) medicatio n facial swelling itching Not available Not available Not available 04/29/2019 32408 05 SNOMED Missy trimble [facility] 9 13:15:37 06863 Cipro medicatio n facial swelling itching Not available Not available Not available 04/29/2019 65798 3 RxNorm Missy trimble [place] [facility] 13:15:56 48391 Substance with sulfonami de structure and antibacte rial mechanism of action (substanc e) medicatio n facial swelling severe Not available 02/15/2021 59280 8003 SNOMED Tamiko Robbinswell nai, [place] [facility] 1 15:09:34 59894 Keflex medicatio n facial swelling severe Not available 02/15/2021 30531 7 RxNorm Tamiko trimble, [place] [facility] 1 15:09:55 42197 Non-stero idal anti-infl ammatory agent (product) medicatio n Not available Not available unabletoasse ss 05/28/2022 42030 005 SNOMED per renal Thenu Juice mayberry MD [address] , [address], [place], [address], [place] [facility] 2 13:18:13 52867 hydromorp omid medicatio n vomiting severe low 06/09/20232022 3423 RxNorm Dee Deewalter trimble, [place] [facility] 3 11:42:51 87982 tramadol medicatio n vomiting severe low 06/09/20232022 31683 RxNorm Dee Dee Alisa null, [place] [facility] 3 11:43:26 40141 meloxicam medicatio n Not available Not available Not available 01/27/2024 75202 RxNorm Kokimarichuy Hollins null, [place] [facility] 4 10:07:29 Medications Name Sig Start Date Stop Date Status Note LastModified by Organization Details LastModified Time cyclobenzap rine 10 mg tablet 04/29 completed Not Available Not Available Not Available anastrozole 1 mg tablet TAKE 1 TABLET BY MOUTH DAILY 05/28 completed Not Available Not Available Not Available carvedilol 25 mg tablet TAKE 1 TABLET BY MOUTH TWICE DAILY active Not Available Not Available No t Available prednisone 10 mg tablet 09/27 completed Not Available Not Available Not Available doxycycline hyclate 100 mg capsule TAKE 1 CAPSULE BY MOUTH TWICE DAILY FOR 10 DAYS 08/16 completed Not Available Not Available Not Available carvedilol 12.5 mg tablet TAKE 1 TABLET BY MOUTH TWICE DAILY active Not Available Not Available No t Available tizanidine 2 mg tablet 10/25 completed Not Available Not Available Not Available clindamycin HCl 300 mg capsule TAKE 2 CAPSULES BY MOUTH 30 MINUTES BEFORE DENTAL APPOINTME NT DIRECTED active Not Available Not Available No t Available trazodone 50 mg tablet TAKE 1/2 TABLET BY MOUTH AT BEDTIME FOR SLEEP 06/09 completed Not Available Not Available Not Available atorvastati n 10 mg tablet TAKE 1 TABLET BY MOUTH DAILY active Not Available Not Available No t Available azithromyci n 250 mg tablet TAKE DIRECTED 09/18 completed Not Available Not Available Not Available aspirin 325 mg tablet TAKE 1 TABLET BY MOUTH TWICE DAILY 05/26 completed Not Available Not Available Not Available metoprolol succinate ER 50 mg tablet,exte nded release 24 hr TAKE 1 TABLET BY MOUTH EVERY DAY 09/18 completed Not Available Not Available Not Available hydrocodone 5 mg-acetamin ophen 325 mg tablet TK 1 T PO BID PRF SEVERE PAIN 04/29 completed Not Available Not Available Not Available prochlorper azine maleate 5 mg tablet TAKE 1 TABLET BY MOUTH THREE TIMES DAILY NEEDED FOR NAUSEA OR VOMITING 02/15 completed Not Available Not Available Not Available ondansetron HCl 4 mg tablet TAKE 1 TABLET BY MOUTH EVERY 8 HOURS NEEDED FOR NAUSEA 09/18 completed Not Available Not Available Not Available famotidine 40 mg tablet TAKE 1 TABLET BY MOUTH AT BEDTIME 06/09 completed Not Available Not Available Not Available prednisone 20 mg tablet TAKE 1 TABLET BY MOUTH DAILY FOR 5 DAYS 05/28 completed Not Available Not Available Not Available Debrox 6.5 % ear drops INSTILL 5 DROPPERFU L TO AFFECTED EAR TWICE DAILY active Not Available Not Available No t Available Lantus U-100 Insulin 100 unit/mL subcutaneou s solution ADMINISTE R 15 UNITS UNDER THE SKIN EVERY EVENING active Not Available Not Available No t Available clindamycin HCl 150 mg capsule TAKE 1 CAPSULE BY MOUTH EVERY 6 HOURS FOR 3 DAYS. TAKE WITH PROBIOTIC AND FULL GLASS OF WATER 09/18 completed Not Available Not Available Not Available diphenoxyla te-atropine 2.5 mg-0.025 mg tablet TAKE 2 TABLETS BY MOUTH FOUR TIMES DAILY NEEDED FOR LOOSE STOOL 02/15 completed Not Available Not Available Not Available amlodipine 5 mg tablet TAKE 1 TABLET BY MOUTH EVERY DAY AT SUPPER 10/28 completed Not Available Not Available Not Available tramadol 50 mg tablet TAKE 1 TO 2 TABLETS BY MOUTH EVERY 6 HOURS NEEDED FOR MILD PAIN. DO NOT EXCEED 8 TABLETS (400MG) PER DAY. 06/09 completed Not Available Not Available Not Available ondansetron 8 mg disintegrat ing tablet DISSOLVE 1 TABLET ON THE TONGUE EVERY 12 HOURS FOR 10 DAYS NEEDED FOR NAUSEA OR VOMITING 06/09 completed Not Available Not Available Not Available levothyroxi ne 75 mcg tablet TAKE 1 TABLET BY MOUTH EVERY DAY 10/18 completed Not Available Not Available Not Available meloxicam 7.5 mg tablet TK 1 T PO D 09/20 completed Not Available Not Available Not Available losartan 100 mg-hydrochl orothiazide 25 mg tablet TAKE 1 TABLET BY MOUTH DAILY 05/28 completed Not Available Not Available Not Available bupropion HCl 100 mg tablet TAKE 1 TABLET BY MOUTH TWICE DAILY active Not Available Not Available No t Available hydromorpho ne 2 mg tablet TAKE 1 TO 2 TABLETS BY MOUTH EVERY 4 HOURS NEEDED FOR MODERATE RO SEVERE PAIN 06/09 completed Not Available Not Available Not Available lorazepam 0.5 mg tablet TAKE 1 TABLET BY MOUTH NEEDED FOR PRE-OP ANXIETY FOR 1 DAY. TAKE 45 MINUTES BEFORE GOING TO HOSPITAL. REPEAT IF FIRST TABLET DOES NOT HELP 10/28 completed Not Available Not Available Not Available exemestane 25 mg tablet TAKE 1 TABLET BY MOUTH DAILY active Not Available Not Available No t Available aspirin 325 mg tablet,anastasia yed release TAKE 1 TABLET BY MOUTH TWICE DAILY WITH FOOD 06/09 completed Not Available Not Available Not Available benzonatate 100 mg capsule TAKE 1 CAPSULE BY MOUTH THREE TIMES DAILY active Not Available Not Available No t Available doxycycline monohydrate 100 mg capsule TAKE 1 CAPSULE BY MOUTH TWICE DAILY WITH FOOD 06/09 completed Not Available Not Available Not Available levothyroxi ne 50 mcg tablet TAKE 1 TABLET BY MOUTH DAILY active Not Available Not Available No t Available cephalexin 500 mg capsule TAKE 1 CAPSULE BY MOUTH EVERY 8 HOURS FOR 4 DAYS 02/05 completed Not Available Not Available Not Available pantoprazol e 40 mg tablet,anastasia yed release TAKE 1 TABLET BY MOUTH EVERY DAY 06/09 completed Not Available Not Available Not Available diphenhydra mine 25 mg capsule TAKE 2 CAPSULES BY MOUTH EVERY 6 TO 8 HOURS NEEDED 02/15 completed Not Available Not Available Not Available lidocaine 5 % topical patch APPLY 1 PATCH TOPICALLY TO THE SKIN DAILY. MAY WEAR UP TO 12 HOURS active Not Available Not Available No t Available gabapentin 300 mg capsule 09/20 completed Not Available Not Available Not Available omeprazole 20 mg capsule,del ayed release TAKE 1 CAPSULE BY MOUTH EVERY MORNING active Not Available Not Available No t Available hydrochloro thiazide 25 mg tablet 02/09 completed Not Available Not Available Not Available gabapentin 100 mg capsule active Not Available Not Available Not Available ergocalcife rol (vitamin D2) 1,250 mcg (50,000 unit) capsule TAKE 1 CAPSULE BY MOUTH 1 TIME EVERY WEEK 06/09 completed Not Available Not Available Not Available diazepam 10 mg tablet 05/18 completed Not Available Not Available Not Available albuterol sulfate HFA 90 mcg/actuati on aerosol inhaler INHALE 1 PUFF BY MOUTH EVERY 4 TO 6 HOURS NEEDED FOR SHORTNESS OF BREATH OR WHEEZING 10/28 completed Not Available Not Available Not Available ondansetron 4 mg disintegrat ing tablet DISSOLVE 1 TABLET ON THE TONGUE EVERY 4 TO 6 HOURS NEEDED FOR NAUSEA active Not Available Not Available No t Available losartan 100 mg tablet 05/18 completed Not Available Not Available Not Available doxycycline hyclate 100 mg tablet TAKE 1 TABLET BY MOUTH TWICE DAILY active Not Available Not Available No t Available diazepam 5 mg tablet TAKE 1 TABLET BY MOUTH 1/ 2 HOUR PRIOR TO MRI 10/28 completed Not Available Not Available Not Available oxycodone 5 mg tablet TAKE 1 TABLET BY MOUTH EVERY 6 HOURS NEEDED FOR MODERATE PAIN 02/15 completed Not Available Not Available Not Available azithromyci n 500 mg tablet TAKE 1 TABLET BY MOUTH DAILY FOR 3 DAYS 05/26 completed Not Available Not Available Not Available nitrofurant oin monohydrate /macrocryst als 100 mg capsule 04/29 completed Not Available Not Available Not Available duloxetine 20 mg capsule,del ayed release 04/29 completed Not Available Not Available Not Available duloxetine 30 mg capsule,del ayed release 05/18 completed Not Available Not Available Not Available duloxetine 60 mg capsule,del ayed release TK 1 C PO BID 09/20 completed Not Available Not Available Not Available losartan 100 mg-hydrochl orothiazide 12.5 mg tablet 01/24 completed Not Available Not Available Not Available valsartan 320 mg-hydrochl orothiazide 12.5 mg tablet 04/29 completed Not Available Not Available Not Available BD Ultra-Fine Short Pen Needle 31 gauge x 5/16 USE TO INJECT INSULIN ONCE A DAY active Not Available Not Available No t Available Januvia 100 mg tablet TAKE 1 TABLET BY MOUTH DAILY active Not Available Not Available No t Available Lantus Solostar U-100 Insulin 100 unit/mL (3 mL) subcutaneou s pen ADMINISTE R 20 UNITS UNDER THE SKIN EVERY MORNING active Not Available Not Available No t Available diclofenac 1 % topical gel APPLY TO THE AFFECTED AREA LIBERALLY THREE TIMES DAILY active Not Available Not Available No t Available Prevnar 13 (PF) 0.5 mL intramuscul ar syringe ADM 0.5ML IM UTD 05/18 completed Not Available Not Available Not Available levothyroxi ne 50 mcg capsule TAKE 1 CAPSULE BY MOUTH DAILY 10/18 completed Not Available Not Available Not Available melatonin 10 mg tablet Take by oral route. 10/28 completed Not Available Not Available Not Available calcium 600 mg (as carbonate)- vitamin D3 20 mcg (800 unit) tablet TAKE 1 TABLET BY MOUTH TWICE DAILY active Not Available Not Available No t Available Culturelle 15 billion cell sprinkle capsule TAKE 1 CAPSULE BY MOUTH EVERY DAY 02/15 completed Not Available Not Available Not Available Shingrix (PF) 50 mcg/0.5 mL intramuscul ar suspension, kit 05/18 completed Not Available Not Available Not Available Fluzone High-Dose 5910-1212 (PF) 180 mcg/0.5 mL intramuscul ar syringe ADM 0.5ML IM UTD 04/29 completed Not Available Not Available Not Available Fluad 2018- 65yr up(PF)45 mcg(15 mcgx3)/0.5 mL intramuscul ar syringe ADM 0.5ML IM UTD 05/18 completed Not Available Not Available Not Available Fluzone High-Dose Quad (PF) 240 mcg/0.7 mL IM syringe ADM 0.7ML IM UTD 09/20 completed Not Available Not Available Not Available Vitals Date Recorded Body height Heart rate Oxygen saturation Oxygen saturation in Arterial blood by Pulse oximetry Systolic blood pressure Diastolic blood pressure Provider Name and Address Organization Details Last Updated DateTime 4 154.94 cm 61 /min 99 % 99 % 144 mm[Hg] 56 mm[Hg] Koki Hollins [facility] 4 10:05:31 Date Recorded Body height Heart rate Oxygen saturation Oxygen saturation in Arterial blood by Pulse oximetry Systolic blood pressure Diastolic blood pressure Provider Name and Address Organization Details Last Updated DateTime 4 154.94 cm 60 /min 98 % 98 % 206 mm[Hg] 84 mm[Hg] Koki Hollins [facility] 4 14:39:48 Date Recorded Body height Heart rate Oxygen saturation Oxygen saturation in Arterial blood by Pulse oximetry Systolic blood pressure Diastolic blood pressure Provider Name and Address Organization Details Last Updated DateTime 4 154.94 cm 61 /min 99 % 99 % 175 mm[Hg] 72 mm[Hg] Joyce Barney [facility] 4 11:00:27 Date Recorded Body height Oxygen saturation Oxygen saturation in Arterial blood by Pulse oximetry Heart rate Systolic blood pressure Diastolic blood pressure Provider Name and Address Organization Details Last Updated DateTime 4 154.94 cm 97 % 97 % 59 /min 211 mm[Hg] 76 mm[Hg] Koki Hollins [facility] 4 10:21:03 Date Recorded Body height Heart rate Oxygen saturation Oxygen saturation in Arterial blood by Pulse oximetry Systolic blood pressure Diastolic blood pressure Provider Name and Address Organization Details Last Updated DateTime 4 154.94 cm 61 /min 99 % 99 % 181 mm[Hg] 82 mm[Hg] Koki Hollins [facility] - [facility] 4 10:06:03 Social History Question Answer Notes LastModified by Organizat ion Details LastModified Time Tobacco Smoking Status Former Smoker Quit x 50 Not Available [employer] 07/07/2020 03:16:09 What Is Your Level Of Alcohol Consumption? Occasional [id number] Information not available 07/07/2020 Are You Currently Employed? Yes [id number] Information not available 07/07/2020 Which Illicit Or Recreational Drugs Have You Used? 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 Alone Information not available 04/29/2019 Marital Status jose enrique Informatio n not available 04/29/2019 How Many Years Have You Smoked Tobacco? 3 [id number] Information not available 07/07/2020 Sex: Unknown Functional Status None recorded. Mental Status None recorded. Family History Relationship Description Onset Age of this Age Resolved Age Notes LastModified by Organization Details LastModified Time Mother Alzheimer's disease Not available 2018 13:21:48 Mother Family history of Thyroid disorder [email or web address] Not available 2018 13:22:35 Maternal Grandmother Alzheimer's disease Not available 2018 13:21:48 Maternal Aunt Alzheimer's disease Not available 2018 13:21:48 Father Diabetes mellitus [email or web address] Not available 2018 13:22:01 Father Heart disease Not available 2018 13:22:09 Medical History Condition Response Diabetes Y Gout Y Arthritis Y Kidney Stones Y High Cholesterol Y Hypertension Y Depression Y Hypothyroidism Y Kidney Disease Y Gynecological HistoryNo gynecological history recorded. Obstetrics History GPAL:G 0 P 0 0 0 0 Past Encounters Encounter ID Performer Location Encounter Start Date Encounter Closed Date Diagnosis/Indication Diagnosis SNOMED-CT Code Diagnosis ICD10 Code Diagnosis Note [id number] Omar Coulter MD PAIN OFFICE [address] [place] [address] 04/29/2019 13:08:47 04/29/2019 15:48:56 Muscle pain 11070594 M79.10 Degenerati on of cervical intervertebral disc 94641947 M50.30 Cervical s pondylosis without myelopathy 810247481 M47.812 Degenerati on of thoracic intervertebral disc 90896846 M51.34 [id number] Omar Coulter MD PAIN OFFICE [address] [facility] [place] [address] 05/18/2019 13:05:28 05/19/2019 09:47:26 Muscle pain 75796045 M79.10 Degenerati on of cervical intervertebral disc 66253007 M50.30 Cervical s pondylosis without myelopathy 980841960 M47.812 Degenerati on of thoracic intervertebral disc 04627375 M51.34 [id number] Omar Coulter MD PAIN OFFICE [address] [place] [address] 06/07/2019 12:59:28 06/07/2019 15:14:41 Muscle pain 19981834 M79.10 Degenerati on of cervical intervertebral disc 79625529 M50.30 Cervical s pondylosis without myelopathy 501653345 M47.812 Degenerati on of thoracic intervertebral disc 01259845 M51.34 [id number] Omar Coulter MD PAIN OFFICE [address] [place] [address] 06/23/2019 15:13:29 07/05/2019 11:29:45 Muscle pain 91180426 M79.10 Degenerati on of cervical intervertebral disc 24672012 M50.30 Cervical s pondylosis without myelopathy 296687970 M47.812 Degenerati on of thoracic intervertebral disc 26522274 M51.34 [id number] Omar Coulter MD PAIN OFFICE [address] [place] [address] 10/25/2019 14:17:47 10/25/2019 14:54:29 Muscle pain 11517594 M79.10 Degenerati on of cervical intervertebral disc 46112293 M50.30 Cervical s pondylosis without myelopathy 139100346 M47.812 Degenerati on of thoracic intervertebral disc 63493644 M51.34 [id number] Omar Coulter MD PAIN OFFICE [address] [place] [address] 11/15/2019 14:20:57 11/19/2019 09:46:43 Muscle pain 87746899 M79.18 Degenerati on of cervical intervertebral disc 46999220 M50.30 Cervical s pondylosis without myelopathy 237233668 M47.812 Degenerati on of thoracic intervertebral disc 77417878 M51.34 [id number] Omar Coulter MD SV PAIN OFFICE [address] [facility] [place] [address] 01/25/2020 10:30:04 02/10/2020 10:22:36 Muscle pain 89944356 M79.10 Degenerati on of cervical intervertebral disc 65228867 M50.30 Cervical s pondylosis without myelopathy 634218604 M47.812 Degenerati on of thoracic intervertebral disc 16955799 M51.34 [id number] Omar Coulter MD PAIN OFFICE [address] [facility] [place] [address] 02/10/2020 13:00:54 02/10/2020 13:45:55 Muscle pain 50579023 M79.18 Degenerati on of cervical intervertebral disc 46282623 M50.30 Cervical s pondylosis without myelopathy 962385225 M47.812 Degenerati on of thoracic intervertebral disc 67445646 M51.34 [id number] Omra Coulter MD PAIN OFFICE [address] [facility] [place] [address] 05/18/2020 13:32:35 05/18/2020 15:44:35 Muscle pain 76360824 M79.10 Degenerati on of cervical intervertebral disc 62888843 M50.30 Cervical s pondylosis without myelopathy 874534922 M47.812 Degenerati on of thoracic intervertebral disc 66920980 M51.34 [id number] Omar Coulter MD [facility] PAIN OFFICE [address] [facility] [place] [address] 06/28/2020 12:49:27 06/28/2020 15:28:04 Muscle pain 07282281 M79.18 Degenerati on of cervical intervertebral disc 27176697 M50.30 Cervical s pondylosis without myelopathy 389389700 M47.812 Degenerati on of thoracic intervertebral disc 97668919 M51.34 [id number] Omar Coulter MD PAIN OFFICE [address] [facility] [place] [address] 09/20/2020 08:42:02 09/20/2020 11:18:24 Thoracic radiculopathy 07555564 M54.14 Muscle pain 90475133 M79 .10 Degenerati on of cervical intervertebral disc 15280957 M50.30 Cervical s pondylosis without myelopathy 699480144 M47.812 Degenerati on of thoracic intervertebral disc 02833139 M51.34 [id number] Omar Coulter MD PAIN OFFICE [address] [place] [address] 09/27/2020 10:02:38 09/27/2020 13:59:25 Thoracic radiculopathy 10799330 M54.14 Muscle pain 27367177 M79 .10 Degenerati on of cervical intervertebral disc 86853638 M50.30 Cervical s pondylosis without myelopathy 368275284 M47.812 Degenerati on of thoracic intervertebral disc 72796616 M51.34 [id number] Omar Coulter MD PAIN OFFICE [address] [place] [address] 10/26/2020 15:31:42 10/26/2020 15:51:53 Thoracic radiculopathy 11851589 M54.14 Muscle pain 82117066 M79 .10 Degenerati on of cervical intervertebral disc 90619684 M50.30 Cervical s pondylosis without myelopathy 906932259 M47.812 Degenerati on of thoracic intervertebral disc 88971205 M51.34 [id number] Omar Coulter MD PAIN OFFICE [address] [place] [address] 02/05/2021 10:22:28 02/05/2021 15:56:53 Osteoarthritis of knee 419494821 M17.9 [id number] Omar Coulter MD PAIN OFFICE [address] [place] [address] 02/15/2021 14:59:34 02/15/2021 16:22:18 Osteoarthritis of knee 265744532 M17.0 [id number] Omar Coulter MD PAIN OFFICE [address] [place] [address] 02/21/2021 14:42:44 02/22/2021 14:39:41 Osteoarthritis of knee 906541497 M17.0 [id number] Omar Coulter MD PAIN OFFICE [address] [place] [address] 06/08/2021 08:59:50 06/15/2021 10:30:41 Osteoarthritis of hip 302960106 M16.9 Arthropath y of lumbar facet joint 908119166 M46.96 [id number] Omar Coulter MD [facility] PAIN OFFICE [address] [facility] [place] [address] 09/18/2021 09:27:54 09/19/2021 12:22:33 Osteoarthritis of hip 474934232 M16.9 Arthropath y of lumbar facet joint 648200217 M46.96 Lumbosacra l radiculopathy 2011995 M54.17 [id number] Omar Coulter MD PAIN OFFICE [address] [facility] [place] [address] 10/18/2021 11:30:20 10/18/2021 11:59:09 Osteoarthritis of hip 687341615 M16.9 Arthropath y of lumbar facet joint 926900718 M46.96 Lumbosacra l radiculopathy 7177937 M54.17 [id number] Omar Coulter MD SV PAIN OFFICE [address] [facility] [place] [address] 01/01/2022 12:59:18 01/01/2022 14:31:36 Osteoarthritis of hip 398244431 M16.9 Arthropath y of lumbar facet joint 275981093 M46.96 Lumbosacra l radiculopathy 7258242 M54.17 [id number] Omar Coulter MD PAIN OFFICE [address] [facility] [place] [address] 05/28/2022 13:05:44 05/29/2022 14:25:07 Osteoarthritis of hip 263617182 M16.9 Arthropath y of lumbar facet joint 639204155 M46.96 Lumbosacra l radiculopathy 4421427 M54.17 [id number] Omar Cuolter MD PAIN OFFICE [address] [facility] [place] [address] 04/22/2023 11:14:39 04/22/2023 14:42:39 Osteoarthritis of hip 371515205 M16.9 Arthropath y of lumbar facet joint 542674450 M46.96 Lumbosacra l radiculopathy 7261525 M54.17 [id number] Omar Coulter MD PAIN OFFICE [address] [facility] [place] [address] 06/09/2023 11:18:38 06/09/2023 11:58:43 Osteoarthritis of hip 871747590 M16.9 Arthropath y of lumbar facet joint 700950456 M46.96 Lumbosacra l radiculopathy 5069545 M54.17 [id number] Omar Coulter MD PAIN OFFICE [address] [facility] [place] [address] 10/28/2023 09:54:59 10/28/2023 14:24:20 Lumbosacral radiculopathy 4444959 M54.17 Degenerati on of lumbar intervertebral disc 78473215 M51.36 [id number] Omar Coulter MD PAIN OFFICE [address] [place] [address] 01/27/2024 09:58:44 01/27/2024 10:59:54 Lumbosacral radiculopathy 7248710 M54.17 Degenerati on of lumbar intervertebral disc 29907807 M51.36 [id number] Omar Coulter MD PAIN OFFICE [address] [place] [address] 05/26/2024 14:28:52 05/26/2024 15:33:11 Lumbosacral spondylosis without myelopathy 01304398 M47.817 [id number] Omar Coulter MD PAIN OFFICE [address] [place] [address] 06/01/2024 10:50:13 06/01/2024 16:05:47 Lumbosacral spondylosis without myelopathy 04886946 M47.817 [id number] Omar Coulter MD PAIN OFFICE [address] [place] [address] 06/23/2024 10:08:25 06/24/2024 08:51:47 Lumbosacral radiculopathy 3898571 M54.17 Degenerati on of lumbar intervertebral disc 87391573 M51.362 [id number] Omar Coulter MD [facility] PAIN OFFICE [address] [place] [address] 08/16/2024 09:50:57 08/23/2024 11:42:01 Lumbosacral radiculopathy 6382973 M54.17 Neuropathy due to diabetes mellitus 999487273 E11.40 Osteoarthritis of hip 23 0211119 M16.9 Arthropath y of lumbar facet joint 123345950 M46.96 Health Concerns Section Related Observation LastModified by Organization Detai ls LastModified Time None Recorded Concern Status LastModified by Organization Details LastModified Time None Recorded Advance Directives Directive None Recorded Payers Encounter Date Sequence Insurance Name Policy Number Policy Jones Covered Member ID Jones Member ID Guarantor Name 01/27/2024 2 [employer] (MEDICARE SUPPLEMENT) Kayleen Adrianoit [id number] Kayleen Adrianoit 01/27/2024 1 [place] [employer] Kayleen Zulma [place] [id number] Kayleen Adrianoit 05/26/2024 2 [employer] (MEDICARE SUPPLEMENT) Kayleen Adrianoit [id number] Kayleen Adrianoit 05/26/2024 1 [place] Kayleen Zulma [place] [id number] 4 Kayleen Adrianoit 06/01/2024 2 [employer] (MEDICARE SUPPLEMENT) Kayleen Steve [id number] Kayleen Adrianoit 06/01/2024 1 [place] [employer] Kayleen Zulma [place] [id number] 4 Kayleen Adrianoit 06/23/2024 2 [employer] (MEDICARE SUPPLEMENT) Kayleen Steve [id number] Kayleen Wilson 06/23/2024 1 [place] [facility] Kayleen Wilson [id number] 4 Kayleen Wilson 08/16/2024 2 [employer] (MEDICARE SUPPLEMENT) Kayleen Wilson [id number] Kayleen Wilson 08/16/2024 1 [place] [facility] Kayleen Wilson [id number] 4 Kayleen Wilson Notes Date Note Type Note Provider Name and Address Organization Details Recorded Time 01/27/2024 text/html She is here for a lumbar epidural steroid injection under fluoroscopic guidance. Omar Coulter MD [address] [facility] , [address], [place], [address], [place] [facility] 01/27/2024 16:23:21 05/26/2024 text/html Kayleen is here fo r a follow up. She is complaining of left sided low back pain. She is having a hard time standing and walking due to pain. She states a friend of hers had a radiofrequency ablation and is doing well and wants to know if she is a candidate. She is going on a trip to [place] and then to [place] next year and wants to be able to walk. 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 She states she has been depressed and does not go out due to pain. She has no radiating pain presently and has no history of bladder or bowel incontinence. Omar Coulter MD [address] [facility] [address], [place], [address], [place] [facility] 05/26/2024 15:45:10 06/01/2024 text/html She is here for a left lumbar facet joint injection under fluoroscopic guidance Omar Coulter MD [address] [facility] [address], [place], [address], [place] [facility] 06/01/2024 16:09:36 06/23/2024 text/html She is here for a lumbar epidural steroid injection under fluoroscopic guidance. Omar Coulter MD [address] [facility] [address], [place], [address], [place] [facility] 06/24/2024 08:54:02 08/16/2024 text/html This is a follow up after a lumbar epidural steroid injection under fluoroscopic guidance on 06/01/2024. She reports 90% pain relief which is ongoing. She is walking better and has been walking one mile a day or more. She is complaining of occasionally achiness in her low back . She has no history of bladder or bowel incontinence.She is getting treatment for breast cancer. She had her knee replacement on the right and plans to have a left knee done next year. She has been to [place] and states she had a good trip. She is having severe pain in her right mid back .The facet joint injection did not help. She has not trialed lidocaine patches. She has seen her PCP for the pain. Omar Coulter MD [address] [place] [address] , [address], [place], [address], [place] [facility] 08/23/2024 11:42:41 OBGyn Episode No OBEpisode recorded.
--- OUTSIDE RECORDS SUMMARY | 2024-10-21 13:11 | XMS_ITS ---
Author Organization [facility] Address [address] [place] [address] Care Team Providers Care Agriculture Intern Name Role Phone CHANDU CHISHOLM Primary Care Provider aTiwo Azar Unavailable [phone] ALLERGIES Allergen (clinical drug ingredient) Drug/Non Drug Allergy documented on EMR Reaction Allergy Type Onset Date Status meloxicam Meloxicam Unknown Drug Allergy Active gabapentin Gabapentin Unknown Drug Allergy Activ e Penicillin G Sodium Unknown Drug Allergy Active Cipro Unknown Drug Allergy Active k flex (uncoded) Unknown Allergy Act jean [...] Active confirmed Gastroesophagea l reflux disease (disorder) (986008889) VITAL SIGNS BMI 32.87 kg/m2 08/10/2024 Blood pressure systolic 00 mm Hg 08/10/20 24 Blood pressure diastolic 00 mm Hg 024 Height 61 in 08/10/2024 Weight 174 lbs 08/10/2024 Encounters Encounter Location Date Provider Diagnosis [facility] [address] [facility] [address] [place] [address] 08/10/2024 Taiwo Mcintosh Diarrhea R19.7 ; Nausea [...]
--- OUTSIDE RECORDS SUMMARY | 2024-10-21 13:11 | XMS_ITS | Clinical Summary ---
Author Organization [facility] Address [address] [place] [address] Phone Care Team Providers Care Child Care Center Administrator Name Role Phone John Herrera NP Primary Care Provider Allergies Active Allergy Reactions Criticality Noted Date Comments Ciprofibrate 11/26/2023 Orphenadrine 11/26/2023 Penicillins 11/26/2023 Sulfa (Sulfonamide Antibiotics) 02/2024 Medications Medication Sig Dispensed Refills Start Date End Date Status atorvastatin (LIPITOR) 10 mg tablet Take 1 tablet (10 mg total) by mouth 1 (one) time each day. 05/15/2023 Active buPROPion (WELLBUTRIN) 100 mg tablet Take 1 tablet (100 mg total) by mouth 2 (two) times a day. 06/04/2023 Active carvediloL (COREG) 25 mg tablet 06/03/2023 Active insulin glargine (LANTUS) 100 unit/mL injection Inject 10 Units under the skin every night at bedtime. Active levothyroxine (SYNTHROID, LEVOTHROID) 50 mcg tablet Take 1 tablet (50 mcg total) by mouth daily. 05/05/2023 Active SITagliptin phosphate (Januvia) 100 mg tablet Take 1 tablet (100 mg total) by mouth daily. 06/03/2023 Active gabapentin (NEURONTIN) 100 mg capsule 08/07/2024 Active Encounters Date Type Department Care Team Description 08/09/2024 11:30 AM EST Office Visit [facility] Hematology Oncology [address] [place] [address] Ceasar Colon MD Invasive ductal carcinoma of breast, female, left (CMS/HCC) (Primary Dx) from Last 3 Months Social History Tobacco Use Types Packs/Day Years Used Date Smoking Tobacco: Never Assessed Sex and Gender Information Value Date Recorded Sex Assigned at Not on file Gender Identity Not on file Sexual Orientation Not on file Job Start Date Occupation Industry Not on file Not on file Not on file Obstetrics History Last Filed Vital Signs Vital Sign Reading Time Taken Comments Blood Pressure 152/84 08/09/2024 11:41 AM EST Pulse 58 08/09/2024 11:41 AM EST Temperature 37.2 ??C (99 ??F) 08/09/2024 11:41 AM EST Respiratory Rate - - Oxygen Saturation 100% 08/09/2024 11:41 AM EST Inhaled Oxygen Concentration - - Weight 79.4 kg (175 lb) 08/09/2024 11:41 AM EST Height 152.4 cm (5') 11/26/2023 11:52 AM EST Body Mass Index 34.18 11/26/2023 11:52 AM EST Plan of Treatment Upcoming Encounters Date Type Department Care Team (Late st Contact Info) Description 08/09/2025 11:00 AM EST Office Visit [facility] Hematology Oncology [address] [place] [phone] Ceasar Colon MD [address] [place] [address] Health Maintenance Due Date Last Done Comments Diabetes: Annual GFR (Glomerular Filtration Rate) 1947 Diabetes: Annual Foot Exam 1957 Diabetes: Annual Retina Eye Exam 1957 DTaP,Tdap,and Td Vaccines (1 - Tdap) 1966 Zoster Vaccines (2 of 2) 11/13/2019 019, 07/16/2019, 03/17/2013 Cholesterol Screening (Lipid Panel) 10/26/2023 Depression Screening 10/26/2023 Falls Risk Assessment 10/26/2023 Hepatitis C Screening 10/26/2023 Medicare Annual Wellness Visit 10/26/2023 Osteoporosis Screening (Bone Density Screening) 10/26/2023 Social Influencers of Health Screening 10/26/2023 Diabetes: Annual Urine Albumin-Creatinine Ratio (uACR) 08/09/2024 Diabetes: Blood Sugar Control Test (HGBA1C) 08/09/2024 10/14/2022 Hypertension/CHF/CAD Annual BMP Blood Test 08/09/2024 Pneumococcal Vaccine: 65+ Years Completed 06/04/2021, 04/30/2020, 09/06/2016 COVID-19 Vaccine Completed 06/14/2024, 11/2022, 05/14/2022, Additional history exists Influenza Vaccine Completed 06/14/2024, , 05/14/2022, Additional history exists RSV Immunization Patients 60+ Years Old Completed 06/14/2024 HIB Vaccines Aged Out No longer eligi ble based on patient's age to complete this topic HPV Vaccines Aged Out No longer eligi ble based on patient's age to complete this topic Hepatitis A Vaccines Aged Out No long er eligible based on patient's age to complete this topic Hepatitis B Vaccines Aged Out No long er eligible based on patient's age to complete this topic IPV Vaccines Aged Out No longer eligi ble based on patient's age to complete this topic MMR Vaccines Aged Out No longer eligi ble based on patient's age to complete this topic Meningococcal ACWY Vaccine Aged Out N o longer eligible based on patient's age to complete this topic RSV Immunization Patients Under 20 months Aged Out No longer eligible based on patient's age to complete this topic Varicella Vaccines Aged Out No longer eligible based on patient's age to complete this topic Care Teams Child Care Center Administrator Relationship Specialty Start Date End Date John Herrera NP [address] [facility] [place] [facility] - General 05/30/23
== END 2024-10-21 10:03 | disposition home or self-care (01) ==
LOC: HO.HAP 10:02
PROVIDERS: Visit Provider Nurse Practitioner Family
DX: Z13.89 Encounter for screening for other disorder (principal)

== ENCOUNTER 2024-10-21 13:20 | Outpatient (REF) | payer MEDICARE, OTHER, SELFPAY ==
--- OUTSIDE RECORDS SUMMARY | 2024-10-21 17:13 | XMS_ITS | Encounter Summary ---
Author Organization [facility] Address [address] [place] [address] Phone Care Team Providers Care Soft Metals Hand Engraver Name Role Phone John Herrera NP Primary Care Provider [phone] Reason for Visit * Reason Comments Med Refill Encounter Details Date Type Department Care Team (Late st Contact Info) Description 11/15/2023 Refill [facility] [address] [place] [phone] Karson Law MD Social History Tobacco Use [...] on filedocumented in this encounter Care Teams Soft Metals Hand Engraver Relationship Specialty Start Date End Date John Herrera NP [address] [facility] [place] [address] PCP - General Nurse Practitioner 09/05/21 documented as of this encounter
--- OUTSIDE RECORDS SUMMARY | 2024-10-21 17:13 | XMS_ITS | Clinical Summary ---
Author Organization [facility] Address [address] [place] [address] Care Team Providers Care Cmo & President Name Role Phone John Herrera Primary Care Provider [phone] Allergies Active Allergy Reactions Criticality Noted Date [...] age to complete this topic Care Teams Cmo & President Relationship Specialty Start Date End Date John Herrera [address] [facility] [place] [address] PCP - General Family Medicine 05/30/23
--- OUTSIDE RECORDS SUMMARY | 2024-10-21 17:13 | XMS_ITS | Encounter Summary ---
Author Organization [facility] Address [address] [place] [address] Care Team Providers Care Cephalometric Technician Name Role Phone John Herrera MD Primary Care Provider Encounter Details Date Type Department Care Team (Late st Contact Info) Description 02/03/2024 Scanned Document [facility] Department of Internal Medicine & Nephrology [address] [phone] Karson Law MD [address] [place] [phone] Social History Tobacco Use Types Packs/Day Years Used Date Smoking Tobacco: Never Assessed Sex and Gender Information Value Date Recorded Sex Assigned at Not on file Gender Identity Not on file Sexual Orientation Not on file documented as of this encounter Plan of Treatment Upcoming Encounters Date Type Department Care Team (Late st Contact Info) Description 03/18/2025 10:20 AM EDT Office Visit [facility] Department of Internal Medicine & Nephrology [place] [address] [place] [phone] Karson Law MD [address] [phone] documented as of this encounter Visit Diagnoses Not on filedocumented in this encounter Care Teams Cephalometric Technician Relationship Specialty Start Date End Date John Herrera MD [address] [place] [address] PCP - General Family Medicine 02/03/24 documented as of this encounter
--- OUTSIDE RECORDS SUMMARY | 2024-10-21 17:14 | XMS_ITS | Clinical Summary ---
Author Organization [facility] Address [address] [place] [address] Phone Care Team Providers Care Search Engine Optimization Strategist Name Role Phone John Herrera NP Primary [...] Description 08/09/2024 11:30 AM EST Office Visit [facility] Hematology Oncology [address] [place] [address] Ceasar Colon MD Invasive ductal [...] Description 08/09/2025 11:00 AM EST Office Visit [facility] Hematology Oncology [address] [place] [phone] Ceasar Colon MD [address] [place] [address] Health Maintenance Due Date Last Done Comments [...] age to complete this topic Care Teams Search Engine Optimization Strategist Relationship Specialty Start Date End Date John Herrera NP [address] [facility] [address] [place] [facility] - General 05/30/23
--- OUTSIDE RECORDS SUMMARY | 2024-10-21 17:14 | XMS_ITS | Encounter Summary ---
Author Organization [facility] Address [address] [facility] [address] [place] [address] Phone Care Team Providers Care Credit Authorizer Name Role Phone John Herrera NP Primary Care Provider [phone] Encounter Details Date Type Department Care Team (Late st Contact Info) Description 09/22/2024 Orders Only [facility] [address] [place] [phone] Maria A Mendez ARNP [address] [facility] [address] [place] [phone] Stage 3b chronic kidney disease (HCC); Hypertension; [...] (HCC) documented in this encounter Care Teams Credit Authorizer Relationship Specialty Start Date End Date John Herrera NP [address] [facility] [place] [address] PCP - General Nurse Practitioner 09/05/21 documented as of this encounter
--- OUTSIDE RECORDS SUMMARY | 2024-10-21 17:14 | XMS_ITS | Encounter Summary ---
Author Organization [facility] Address [address] [place] [address] Care Team Providers Care Waste Baler Name Role Phone John Herrera MD Primary Care Provider [phone] Encounter Details Date Type Department Care Team (Late st Contact Info) Description 10/19/2024 Telephone [facility] Department of Internal Medicine [place] [address] [facility] [address] [place] [phone] John Herrera MD [address] [place] [address] Social History Tobacco Use Types Packs/Day Years [...] Description 03/18/2025 10:20 AM EDT Office Visit [facility] Department of Internal Medicine & Nephrology [place] [address] [facility] [address] [place] [phone] Karson Law MD [address] [address] documented as of this encounter Visit Diagnoses Not on filedocumented in this encounter Care Teams Waste Baler Relationship Specialty Start Date End Date John Herrera MD [address] [place] [address] PCP - General Family Medicine 02/03/24 documented as of this encounter
--- OUTSIDE RECORDS SUMMARY | 2024-10-21 17:14 | XMS_ITS | Clinical Summary ---
Author Organization [facility] Address [address] [facility] 20 0 [place] [address] Phone Care Team Providers Care Poultry Farm Supervisor Name Role Phone John Herrera NP Primary Care Provider [phone] Allergies Active Allergy Reactions Criticality Noted Date [...] [place] [address] [place] [address] Maria A Mendez ARNP Stage 3b chronic [...] PM EST) Hemoglobin A1C 5.4 (4.0-5.6) % [facility] Comment: MONITORING: In known diabetic patients, hemoglobin A1c targets should be discussed with health care provider. DIAGNOSTIC USE: ??The [place] Diabetes Association (ADA) and the World Health [...] Supplement 1 Testing performed or reported by [facility], a Service of [facility], [address] [place] [address] Niall Pinto MD, Airplane Pilot Crop Dusting [facility]# [id number] Blood (Blood, Venous) 10/14/2022 4:03 PM EST 10/14/2022 4:05 PM EST us Karson Law MD LAB BLOOD ORDERABLES Carol rasmussen Result [facility] from Last 3 Months or Most Recently Relevant to Health Maintenance Insurance [employer] MEDICARE [facility] MEDICARE Care Teams Poultry Farm Supervisor Relationship Specialty Start Date End Date John Herrera NP [address] [place] [address] PCP - General Nurse Practitioner 09/05/21
--- OUTSIDE RECORDS SUMMARY | 2024-10-21 17:14 | XMS_ITS | Clinical Summary ---
Author Organization [facility] Address [address] [place] [address] Care Team Providers Care Electro Mechanical Engineer Name Role Phone John Herrera MD [...] Department Care Team Description 10/19/2024 Telephone [facility] Department of Internal Medicine [place] [address] [place] [address] John Herrera MD 08/13/2024 10:00 AM EST Office Visit [facility] Department of Internal Medicine & Nephrology [place] [address] [place] [address] Karson Law MD Secondary hyperparathyroidism (HCC) (Primary Dx); Hypovitaminosis D; CKD (chronic kidney disease) stage 2, GFR 60-89 ml/min; Essential hypertension; Anemia associated with chronic renal failure; Diabetic nephropathy associated with type 2 diabetes mellitus (HCC); Nephrolithiasis 08/13/2024 Orders Only [facility] Department of Internal Medicine & Nephrology [place] [address] [place] [address] Karson Law MD Secondary hyperparathyroidism (HCC); Hypovitaminosis [...] 03/18/2025 10:20 AM EDT Office Visit [facility] Department of Internal Medicine & Nephrology [place] [address] [place] [address] Karson Law MD 85 [facility] 900 [place] [address] Health Maintenance Due Date Last Done Comments [...] assigned Basic Metabolic Panel (8), Test Code #[id number] to this request. If this is not the testing you wished to receive on this specimen, please contact the [facility] Client Inquiry/Technical Services Department to clarify the test order. ??We appreciate your business. 08/10/2024 2:47 PM EST 08/10/2024 Narrative [facility] ([place]) - 08/11/2024 6:10 AM EST Performed at: ??01 - [facility] [address] ??[id number] Cosmetic Sales Advisor: Suzi Stern MD, Phone: ??[phone] Karson Law MD LAB BLOOD ORDERAB LES Performing Organization Address [facility]/ZIP Co de Phone Number [facility] ([place]) [facility] 1 * Albumin, Random Urine (08/10/2024 2:47 PM EST) Albumin, Urine 167.3 Not Estab. ug/mL [facility] 1 08/10/2024 2:47 PM EST 08/10/2024 Narrative [facility] ([place]) - 08/11/2024 1:07 PM EST Performed at: ??01 - [facility] [address] ??[id number] Cosmetic Sales Advisor: Suzi Stern MD, Phone: ??[phone] Karson Lwa MD URINE ORDERABLES Performing Organization Address [facility] Co de Phone Number [facility] ([place]) [facility] [...] PM EST Performed at: ??01 - [facility] [address] ??[id number] Cosmetic Sales Advisor: Suzi Stern MD, Phone: ??[phone] Karson Law MD URINE ORDERABLES Performing Organization Address [facility] Co de Phone Number [facility] ([place]) [facility] 1 * (ABNORMAL) Iron and Total Iron Binding Capacity (08/10/2024 2:47 PM EST) Pathologist [facility] Total Iron Binding Capacity 240(L) 250 - 450 ug/dL [facility] 1 UIBC 166 118 - 369 ug/dL [facility] 1 Iron 74 27 - 139 ug/dL [facility] 1 Iron Saturation 31 15 - 55 % [facility] 1 08/10/2024 2:47 PM EST 08/10/2024 Narrative [facility] ([place]) - 08/11/2024 8:13 AM EST Performed at: ??01 - [facility] [address] ??[id number] Cosmetic Sales Advisor: Suzi Stern MD, Phone: ??[phone] Karson Law MD LAB BLOOD ORDERAB LES Performing Organization Address City/[facility]/ZIP Co de Phone Number [facility] ([place]) [facility] 1 * PTH, INTACT WITH IONIZED CALCIUM (08/10/2024 2:47 PM EST) [facility] Calcium, Ionized 5.3 4.5 - 5.6 mg/dL [facility] 1 PTH, Intact 31 15 - 65 pg/mL [facility] 1 Blood specimen (specimen) Blood specimen / Unknown 08/10/2024 2:47 PM EST 08/10/2024 Narrative [facility] ([place]) - 08/11/2024 6:06 PM EST Performed at: ??01 - [facility] [address] ??[id number] Cosmetic Sales Advisor: Suzi Stern MD, Phone: ??[phone] Karson Law MD LAB BLOOD ORDERAB LES [facility] ([facility]) [facility] 1 * VITAMIN D 1,25 DIHYDROXY (08/10/2024 2:47 PM EST) [facility] Vit D 1,25 di-OH 45.1 24.8 - 81.5 pg/mL [facility] 1 Blood specimen (specimen) Blood specimen / Unknown 08/10/2024 2:47 PM EST 08/10/2024 Narrative [facility] ([place]) - 08/12/2024 3:07 PM EST Performed at: ??01 - [facility] [address] ??[id number] Cosmetic Sales Advisor: Suzi Stern MD, Phone: ??[phone] Karson Law MD LAB BLOOD ORDERAB LES Performing Organization Address [facility] Co de Phone Number [facility] ([place]) [facility] 1 * VITAMIN D, 25-HYDROXY (08/10/2024 2:47 PM EST) Vitamin D, 25-Hydroxy 31.7 30.0 - 100.0 ng/mL [facility] 1 Comment: Vitamin D deficiency has been defined by the [place] of Medicine and an Endocrine Society practice guideline as a level of serum 25-OH vitamin D less than 20 ng/mL (1,2). The Endocrine Society went on to further define vitamin D insufficiency as a level between 21 and 29 ng/mL (2). 1. IOM ([place] of Medicine). 2010. Dietary reference ?? intakes [...] AM EST Performed at: ??01 - [facility] [address] ??[id number] Cosmetic Sales Advisor: Suzi Stern MD, Phone: ??[phone] Karson Law MD LAB BLOOD ORDERAB LES Performing Organization Address City/[facility]/ZIP Co de Phone Number [facility] ([place]) [facility] 1 * URIC ACID (08/10/2024 2:47 PM EST) Uric Acid 5.5 3.1 - 7.9 mg/dL [facility] 1 Comment: ? Therapeutic target for gout patients: <6.0 08/10/2024 2:47 PM EST 08/10/2024 Narrative [facility] ([place]) - 08/11/2024 8:13 AM EST Performed at: ??01 - [facility] [address] ??[id number] Cosmetic Sales Advisor: Suzi Stern MD, Phone: ??[phone] Karson Law MD LAB BLOOD ORDERAB LES [facility] ([place]) [facility] 1 * TRANSFERRIN (08/10/2024 2:47 PM EST) Transferrin 194 192 - 364 mg/dL [facility] 1 Blood specimen (specimen) Blood specimen / Unknown 08/10/2024 2:47 PM EST 08/10/2024 Narrative [facility] ([place]) - 08/11/2024 6:10 AM EST Performed at: ?? - [facility] [address] ??[id number] Cosmetic Sales Advisor: Suzi Stern MD, Phone: ??[phone] Karson Law MD LAB BLOOD ORDERAB LES [facility] ([place]) [facility] 1 * (ABNORMAL) PHOSPHORUS (08/10/2024 2:47 PM EST) Phosphorus 2.7(L) 3.0 - 4.3 mg/dL [facility] 1 08/10/2024 2:47 PM EST 08/10/2024 Narrative [facility] ([place]) - 08/11/2024 8:13 AM EST Performed at: ??01 - [facility] [address] ??[id number] Cosmetic Sales Advisor: Suzi Stern MD, Phone: ??[phone] Karson Law MD LAB BLOOD ORDERAB LES Performing Organization Address [facility] Co de Phone Number [facility] [place]) [facility] 1 * (ABNORMAL) Hemoglobin A1C (08/10/2024 2:47 PM EST) Hemoglobin A1C 5.7(H) 4.8 - 5.6 % [facility] 1 Comment: ? Prediabetes: 5.7 - 6.4 ? Diabetes: >6.4 ? Glycemic control for adults with diabetes: <7.0 08/10/2024 2:47 PM EST 08/10/2024 Narrative [facility] ([place]) - 08/11/2024 6:10 AM EST Performed at: ??01 - [facility] [address] ??[id number] Cosmetic Sales Advisor: Suzi Stern MD, Phone: ??[phone] Karson Law MD LAB BLOOD ORDERAB LES Performing Organization Address [facility] Co de Phone Number [facility] [place]) [facility] 1 * (ABNORMAL) FERRITIN (08/10/2024 2:47 PM EST) Pathologist [facility] Ferritin 221(H) 15 - 150 ng/mL [facility] 1 08/10/2024 2:47 PM EST 08/10/2024 Narrative [facility] [place]) - 08/11/2024 8:13 AM EST Performed at: ??01 - [facility] [address] ??[id number] Cosmetic Sales Advisor: Suzi Stern MD, Phone: ??[phone] Karson Law MD LAB BLOOD ORDERAB LES Performing Organization Address [facility]/State/ZIP Co de Phone Number [facility] K[place]) [...] AM EST Performed at: ??01 - [facility] [address] ??[id number] Cosmetic Sales Advisor: Suzi Stern MD, Phone: ??[phone] Karson Law MD LAB BLOOD ORDERAB LES [facility] [place]) [facility] 1 from Last 3 Months Care Teams Electro Mechanical Engineer Relationship Specialty Start Date End Date John Herrera MD [address] [place] [address] PCP - General Family Medicine 02/03/24
== END 2024-10-21 13:21 | disposition home or self-care (01) ==
LOC: HO.LNP 13:20
PROVIDERS: Visit Provider Otolaryngology
DX: H60.90 Unspecified otitis externa, unspecified ear (principal)
CPT/HCPCS: 87070; 87077; 87186; 87205

== ENCOUNTER 2024-11-12 10:46 | Outpatient (REF) | payer SELFPAY ==
--- OUTSIDE RECORDS SUMMARY | 2024-11-12 11:51 | XMS_ITS | Encounter Summary ---
Author Organization [facility] Address [address] [place] [address] Care Team Providers Care Clinical Data Abstractor Name Role Phone John Herrera MD Primary Care Provider Encounter Details Date Type Department Care Team (Late st Contact Info) Description 02/03/2024 Scanned Document [facility] Department of Internal Medicine & Nephrology [address] [phone] Karson Law MD [address] [place] [phone] Social History Tobacco Use Types Packs/Day Years Used Date Smoking Tobacco: Never Assessed Sex and Gender Information Value Date Recorded Sex Assigned at Not on file Gender Identity Not on file Sexual Orientation Not on file documented as of this encounter Plan of Treatment Upcoming Encounters Date Type Department Care Team (Late st Contact Info) Description 03/18/2025 10:20 AM EDT Office Visit [facility] Department of Internal Medicine & Nephrology [place] [address] [place] [address] Karson Law MD [address] [phone] documented as of this encounter Visit Diagnoses Not on filedocumented in this encounter Care Teams Clinical Data Abstractor Relationship Specialty Start Date End Date John Herrera MD [address] [place] [address] PCP - General Family Medicine 02/03/24 documented as of this encounter
--- OUTSIDE RECORDS SUMMARY | 2024-11-12 11:51 | XMS_ITS | Patient Health Record ---
Author Organization [facility] Address [address] [place] [address] Care Team Providers Care Testing Projects Administrator Name Role Phone CHANDU CHISHOLM Primary Care Provider Taiwo Azar [phone] ALLERGIES Allergen (clinical drug ingredient) Drug/Non Drug [...] EIA Reviewed date:03/15/2024 10:33:39 PM Interpretation: Performing Lab:[address] [address] Notes/Report: Giardia Ag Stool EIA SEE NOTE GIARDIA AG, EIA, STOOL Micro Number: [id number] Test Status: Final Specimen Source: Stool Specimen Quality: Adequate Giardia Result 1: Not Detected Reference Range: Not Detected NOTE: Due to intermittent shedding, one negative sample does not necessarily rule out the presence of a parasitic infection. THIS TEST WAS PERFORMED AT: [facility] [address] [place] [phone] DESTINY AUGUSTE MD Calprotectin, Fecal Reviewed date:03/06/2024 01:39:27 PM Interpretation: Performing Lab:[address] [address] Notes/Report: Calprotectin, Fecal 12 Reference Range: <50 [...] borderline values. THIS TEST WAS PERFORMED AT: [employer] [facility] [address] [place] [address] TERRELL YU MD,PHD,TRIXIE Ova and Parasite Reviewed date:03/15/2024 10:37:24 PM Interpretation: Performing Lab:[address] [address] Notes/Report: Ova and Parasite SEE NOTE OVA AND PARASITES, CONC AND PERM SMEAR Micro Number: [id number] Test Status: Final Specimen Source: Specimen Quality: [...] infection. For additional information, please refer to https://education.Cabara/faq/FFT369 (This link is being provided for informational/ educational purposes only.) THIS TEST WAS PERFORMED AT: [facility] [address] MORA LONDON MD GI PANEL Reviewed date:02/28/2024 01:39:07 PM Interpretation: Performing Lab:[address] [address] Notes/Report: Campylobacter Not Detected Not Detect. Plesiomonas [...] is performed by Multiplexed PCR, utilizing the [employer] Array. Complete Blood Count Auto Di ff Reviewed date:02/26/2024 11:50:55 PM Interpretation: Performing Lab:[facility], [address] [place] [address] Notes/Report: White Blood Count 5.6 4.8-10.8 X10*3/uL [...] te Reviewed date:02/26/2024 11:55:54 PM Interpretation: Performing Lab:[address] [address] Notes/Report: Erythrocyte Sedimentation Rate 26 0-20 MM/HR Patients with polycythemia and many hemoglobin abnormalities may have depressed sed rates whereas patients with anemia may have elevated sed rates. Liver Panel Reviewed date:02/26/2024 11:51:08 PM Interpretation: Performing Lab:[facility], [address] [place] [phone] Notes/Report: Bilirubin Total 0.7 0.0-1.0 mg/dL Bilirubin Direct 0.2 0.0-0.5 mg/dL Aspartate Amino Transferase 14 5-31 U/L Alanine Aminotransferase 10 0-31 U/L Total Protein 6.5 6.5-8.0 g/dL Albumin Level 3.9 3.5-5.0 g/dL Alkaline Phosphatase 77 39-117 U/L Basic Metabolic Panel Reviewed date:02/28/2024 01:38:31 PM Interpretation: Performing Lab:[address] [address] Notes/Report: Sodium 143 135-145 mmol/L Potassium 3.2 3.3-5.1 mmol/L Chloride 112 96-108 mmol/L Carbon Dioxide 24 22-29 mmol/L Anion Gap 10 12-20 Blood Urea Nitrogen 22 9-16 mg/dL Creatinine 0.94 0.5-1.4 mg/dL Estimated Glomerular Filt Rate 58 NOTE: For -Maltese individuals, multiply the result by 1.210. Chronic Kidney Disease: Estimated GFR < 60 mL/min/1.73m2 Severe Kidney Disease: Estimated GFR < 15 mL/min/1.73m2 Glucose Random 121 60-115 mg/dL Calcium 9.7 8.4-10.2 mg/dL C Reactive Protein Reviewed date:02/26/2024 11:53:14 PM Interpretation: Performing Lab:[facility], [address] [place] [phone] Notes/Report: C Reactive Protein 0.13 < or = 0.50 mg/dL Immunoglobulin A Reviewed date:03/01/2024 11:35:45 PM Interpretation: Performing Lab:[facility], [address] [place] [phone] Notes/Report: Immunoglobulin A 247 70-320 mg/dL THIS TEST WAS PERFORMED AT: [facility] [address] [place] [phone] DESTINY AUGUSTE MD Transglutaminase Ab IgG Reviewed date:03/01/2024 11:34:46 PM Interpretation: Performing Lab:[facility], [address] [place] [phone] Notes/Report: Transglutaminase Ab IgG <1.0 Value Interpretation ----- <15.0 Antibody not detected > or = 15.0 Antibody detected THIS TEST WAS PERFORMED AT: [facility] [address] [place] [phone] DESTINY AUGUSTE MD Transglutaminase IgA Reviewed date:03/01/2024 11:34:36 PM Interpretation: Performing Lab:[facility], [address] [place] [phone] Notes/Report: Transglutaminase IgA <1.0 Value Interpretation ----- <15.0 Antibody not detected > or = 15.0 Antibody detected THIS TEST WAS PERFORMED AT: [facility] [address] [place] [phone] DESTINY AUGUSTE MD Gliadin Ab Panel Reviewed date:03/01/2024 11:34:29 PM Interpretation: Performing Lab:[facility], [address] [place] [phone] Notes/Report: Gliadin Deamidated IgA Ab <1.0 Value Interpretation ----- <15.0 Antibody not detected > or = 15.0 Antibody detected Gliadin Deamidated IgG Ab <1.0 Value Interpretation ----- <15.0 Antibody not detected > or = 15.0 Antibody detected THIS TEST WAS PERFORMED AT: [facility] [address] [place] [phone] DESTINY AUGUSTE MD Endomysial IgA rflx Titer Reviewed date:03/01/2024 11:34:22 PM Interpretation: Performing Lab:[facility], [address] [place] [phone] Notes/Report: Endomysial IgA Antibody Negative Negative THIS TEST WAS PERFORMED AT: [employer] [facility] [facility]/[address] [address] DARRELL WESTBROOK MD,PHD Endomysial Titer TNP CDiff Gene PCR Reviewed date:02/28/2024 01:04:04 PM Interpretation: Performing Lab:[facility], [address] [place] [phone] Notes/Report: CDiff Gene PCR NEGATIVE Negative If C. difficile strongly suspected despite one negative test, a second test may be sent vs. empiric treatment for C. difficile infection. Prothrombin Time INR Reviewed date:03/27/2024 09:51:04 PM Interpretation: Performing Lab:[facility], [address] [place] [phone] Notes/Report: Prothrombin Time 11.0 11.1-13.3 [employer] [...] Electrolytes Reviewed date:03/27/2024 09:50:56 PM Interpretation: Performing Lab:[facility], [address] [place] [phone] Notes/Report: Sodium 139 135-145 mmol/L Potassium 3.7 3.3-5.1 mmol/L Chloride 109 96-108 mmol/L Carbon Dioxide 20 22-29 mmol/L Anion Gap 14 12-20 Glucose, Whole Blood Reviewed date:03/27/2024 09:50:45 PM Interpretation: Performing Lab:[facility], [address] [place] [phone] Notes/Report: Glucose, Whole Blood 85 60-115 mg/dL METER # : [id number] Pathology Reviewed date:08/10/2024 10:51:18 AM Interpretation: Performing Lab:[facility], [address] [place] [phone] Notes/Report: REASON FOR REFERRAL No Information MEDICATIONS Medication SIG (Take, Route, Frequency, Duration) Notes Start Date End Date Status Omeprazole 20 MG TAKE 1 CAPSULE BY [facility] EVERY MORNING for 30 Active Imodium A-D [...] Problem Hypertension, unspecified type (I10) Active confirmed 44006813 Problem Encounter for screening for malignant neoplasm of colon (Z12.11) Active confirmed 047121329 Problem Preprocedural examination (Z01.818) Active confirmed 575610070620390 Problem Encntr long-term NSAID use (Z79.1) Active confirmed 738979649 Problem Nausea (R11.0) Active confirmed Nausea (781365180) Problem Diarrhea (R19.7) Active confirmed Diarr hea (86577161) Problem Weight loss (R63.4) Active confirmed Weight loss (128498817) Problem Diverticulosis of large intestine without perforation or abscess without bleeding (K57.30) Active confirmed Diverticul ar disease of colon (506438023) Problem Chronic GERD (K21.9) Active confirmed Gastroesophagea l reflux disease (disorder) (598953327) VITAL SIGNS Temperature 96.9 degrees Fahrenheit 02/25/2024 Blood pressure diastolic 00 mm Hg 08/10/2024 Height 61 in 08/10/2024 Blood pressure systolic 00 mm Hg 08/10/2024 Weight 174 lbs 08/10/2024 BMI 32.87 kg/m2 08/10/2024 Encounters Encounter Location Date Provider Diagnosis [facility] Outpatient [address] [place] [phone] 03/26/2024 Taiwo Mcintosh Diarrhea R19.7 ; Dallin ght loss R63.4 ; Diverticulosis of large intestine without perforation or abscess without bleeding K57.30 ; Other hemorrhoids K64.8 ; Nausea R11.[address]nia K44.9 [facility] [address] [place] [address] 02/25/2024 Taiwo Mcintosh Nausea R11.0 ; Diarr hea R19.7 and Weight loss R63.4 [facility] [address] [address] 08/10/2024 Taiwo Mcintosh Diarrhea R19.7 ; Yonis sea R11.0 and Chronic GERD K21.9 [facility] [address] [address] 02/26/[address] [facility] [address] [address] 03/29/2024 Taiwo Mcintosh ASSESSMENTS Encounter Date Diagnosis [...] Date MEDICARE OF [place] [address] [place] [address] [id number] NANCY VORA Self - patient is the insured [facility] [address] [address] [place] [address] [id number] NANCY VORA Self - patient is the insured MEDICAL (GENERAL) HISTORY Medical History History ICD Code Denies VT,CVA,Lung disease,renal disease IDDM Hypertension Kidney stones Negative [...]
--- OUTSIDE RECORDS SUMMARY | 2024-11-12 11:51 | XMS_ITS ---
Author Organization [facility] Address [address] [place] [address] Care Team Providers Care Rn Anesthetist Name Role Phone CHANDU CHISHOLM Primary Care Provider Taiwo Azar Unavailable [phone] REASON FOR VISIT diarrhea,wt loss,nausea PROBLEMS Problem Type ICD Code Onset Dates Problem Status W/U Status Risk SNOMED Code Notes Problem Diverticulosis of large intestine without perforation or abscess without bleeding (K57.30) Active confirmed Diverticul ar disease of colon (055527504) Encounters Encounter Location Date Provider Diagnosis [facility] Outpatient [address] [place], [place] [phone] 03/26/2024 Taiwo Mcintosh Diarrhea R19.7 ; W [...]
--- OUTSIDE RECORDS SUMMARY | 2024-11-12 11:51 | XMS_ITS | Clinical Summary ---
Author Organization [facility] Address [address] [place] [address] Care Team Providers Care Mill Roll Operator Name Role Phone John Herrera Primary Care Provider [phone] Allergies Active Allergy Reactions Criticality Noted Date [...] age to complete this topic Care Teams Mill Roll Operator Relationship Specialty Start Date End Date John Herrera [address] [facility] [place] [address] PCP - General Family Medicine 05/30/23
--- OUTSIDE RECORDS SUMMARY | 2024-11-12 11:51 | XMS_ITS | Encounter Summary ---
Author Organization [facility] Address [address] [place] [address] Phone Care Team Providers Care Spark Plug Assembler Name Role Phone John Herrera NP Primary Care Provider [phone] Reason for Visit * Reason Comments Med Refill Encounter Details Date Type Department Care Team (Late st Contact Info) Description 11/15/2023 Refill [facility] [address] [place] [phone] Karson Law MD Social History Tobacco Use [...] on filedocumented in this encounter Care Teams Spark Plug Assembler Relationship Specialty Start Date End Date John Herrera NP [address] [facility] [place] [address] PCP - General Nurse Practitioner 09/05/21 documented as of this encounter
--- OUTSIDE RECORDS SUMMARY | 2024-11-12 11:52 | XMS_ITS | Clinical Summary ---
Author Organization [facility] Address [address] [place] [phone] Phone Care Team Providers Care Plate Slitter And Inspector Name Role Phone John Herrera NP Primary Care Provider Allergies Active Allergy Reactions Criticality Noted Date Comments Ciprofibrate 11/26/2023 Orphenadrine 11/26/2023 Penicillins 11/26/2023 Sulfa (Sulfonamide Antibiotics) 02/2024 Medications atorvastatin (LIPITOR) 10 mg tablet Take 1 [...] gabapentin (NEURONTIN) 100 mg capsule 08/07/2024 Active Social History Tobacco Use Types Packs/Day Years Used Date Smoking Tobacco: Never Assessed Comments Unknown Sex and Gender Information Value Date Recorded Sex Assigned at Not on file Legal Sex Female 11:09 AM EST Gender Identity Not on file Sexual Orientation Not on file Obstetrics History Last Filed [...] Description 08/09/2025 11:00 AM EST Office Visit [facility] Hematology Oncology [address] [place] [phone] Ceasar Colon MD [address] [place] [address] Health Maintenance Due Date Last Done Comments [...] Annual BMP Blood Test 08/09/2024 Pneumococcal Vaccine: 50+ Years Completed 06/04/2021, 04/30/2020, 09/06/2016 COVID-19 Vaccine [...] patient's age to complete this topic Meningococcal B Vacine Aged Out No lo nger eligible based on patient's age to complete this topic RSV Immunization Patients Under 20 months Aged Out No longer eligible based on patient's age to complete this topic Varicella Vaccines Aged Out No longer eligible based on patient's age to complete this topic Insurance MEDICARE [facility] Care Teams Plate Slitter And Inspector Relationship Specialty Start Date End Date John Herrera NP [address] [facility] [place] PCP - General 05/30/23
--- OUTSIDE RECORDS SUMMARY | 2024-11-12 11:52 | XMS_ITS | Encounter Summary ---
Author Organization [facility] Address [address] [place] [id number] Care Team Providers Care Oil Treater Name Role Phone John Herrera MD Primary Care Provider Encounter Details Date Type Department Care Team (Late st Contact Info) Description 10/19/2024 Telephone [facility] Department of Internal Medicine [place] [address] [facility] [address] [place] [phone] John Herrera MD [address] [place] [address] Social History Tobacco Use Types Packs/Day Years [...] Description 03/18/2025 10:20 AM EDT Office Visit [facility] Department of Internal Medicine & Nephrology [place] [address] [facility] [address] [place] [phone] Karson Law MD [address] [address] documented as of this encounter Visit Diagnoses Not on filedocumented in this encounter Care Teams Oil Treater Relationship Specialty Start Date End Date John Herrera MD [address] [place] [address] PCP - General Family Medicine 02/03/24 documented as of this encounter
--- OUTSIDE RECORDS SUMMARY | 2024-11-12 11:52 | XMS_ITS ---
Author Organization [facility] Address [address] [place] [address] Care Team Providers Care Pot Liner Name Role Phone CHANDU CHISHOLM Primary Care Provider Taiwo Azar Unavailable [phone] ALLERGIES Allergen (clinical drug ingredient) Drug/Non Drug [...] Active confirmed Gastroesophagea l reflux disease (disorder) ([id number]) VITAL SIGNS BMI 32.87 kg/m2 08/10/2024 Blood pressure systolic 00 mm Hg 08/10/20 24 Blood pressure diastolic 00 mm Hg 024 Height 61 in 08/10/2024 Weight 174 lbs 08/10/2024 Encounters Encounter Location Date Provider Diagnosis [facility] [address] [facility] [address] [place] [address] 08/10/2024 Taiwo Mcintosh Diarrhea R19.7 ; Nausea [...]
--- OUTSIDE RECORDS SUMMARY | 2024-11-12 11:52 | XMS_ITS | Clinical Summary ---
Author Organization [facility] Address [address] [facility] [address] [place] [address] Phone Care Team Providers Care Consumer Loan Officer Name Role Phone John Herrera NP Primary Care Provider [phone] Allergies Active Allergy Reactions Criticality Noted Date [...] Of [place] [address] [place] [address] Maria A Mendez ARNP Stage 3b chronic [...] PM EST) Hemoglobin A1C 5.4 (4.0-5.6) % [facility] Comment: MONITORING: In known diabetic patients, hemoglobin A1c targets should be discussed with health care provider. DIAGNOSTIC USE: ??The [place] Diabetes Association (ADA) and the World Health [...] Supplement 1 Testing performed or reported by [facility], a Service of [facility], [address] [place] [address] Niall Pinto MD, Director Medicare Sales [facility]# [id number] Blood (Blood, Venous) 10/14/2022 4:03 PM EST 10/14/2022 4:05 PM EST us Karson Law MD LAB BLOOD ORDERABLES Carol rasmussen Result [facility] from Last 3 Months or Most Recently Relevant to Health Maintenance Insurance [employer] MEDICARE [facility] MEDICARE Care Teams Consumer Loan Officer Relationship Specialty Start Date End Date John Herrera NP [address] [place] [address] PCP - General Nurse Practitioner 09/05/21
--- OUTSIDE RECORDS SUMMARY | 2024-11-12 11:52 | XMS_ITS ---
Author Organization [facility] Address [address] [place] [address] Care Team Providers Care Spinner Frame Name Role Phone CHANDU CHISHOLM Primary Care Provider Taiwo Azar [phone] Encounters Encounter Location Date Provider Diagnosis [facility] [address] [place] [address] 03/29/2024 Taiwo Mcintosh PLAN OF TREATMENT No Information
--- OUTSIDE RECORDS SUMMARY | 2024-11-12 11:52 | XMS_ITS | Data Portability ---
Author Organization [facility] denise PAIN OFFICE Address [address] [place] [address] Care Team Providers Care Trigonometry Tutor Name Role Phone CHADNU CHISHOLM Primary Care Provider [phone] Assessment Encounter Date Assessment Date Assessment LastModified [...] She wishes to proceed. 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 [...] lumbar epidural injection before her trip to [place] next year ora Not available 08/23/2024 11:41:24 Plan of Treatment Reminders Order Date Submit Date Provider Last Modified By Organization Details Last Modified Time Details Appointments PROCEDURE 2024 10:30A M Omar mayberry MD Not available Not available Not available Lab None recorded. Referral None recorded. Procedures None recorded. Surgeries None recorded. Imaging None recorded. Medication Orders lidocaine 5 % topical patch 2023 024 [id number] [address] [place], [place], [id number], 08/16/2024 10:38:29 Patient TargetsNo targets recorded. Patient Instructions Encounter Date Encounter Id Patient Instructions Last Modified By Organization Details Last Modified Time 05/26/2024 [id number] She was advised against bed rest lasting longer than four days and to continue activities as tolerated. [email or web address] Not available 05/26/2024 15:26:50 06/01/2024 [id number] She was advised against bed rest lasting longer than four days and to continue activities as tolerated. [email or web address] Not available 06/01/2024 11:30:11 Reason for Referral None Reported. Problems Name Problem SNOMED Code Status Onset Date Resolution Date Notes Provider Name and Address Organization Details Recorded Time Degeneratio n of lumbar interverteb ral disc 94026540 Completed 04/29/2019 Omar mayberry MD [address] , [address], [place], [address], [place] [facility] 15:16:59 Degeneratio n of cervical interverteb ral disc 16495296 Active Omar mayberry MD [address] , [address], [place], [address], [place] [facility] 15:16:55 Muscle pain 18370751 Active Omar mayberry MD [address] , [address], [place], [address], [place] [facility] 15:17:16 Cervical spondylosis without myelopathy 967010246 Active Omar mayberry MD [address] , [address], [place], [address], [place] [facility] 15:17:31 Degeneratio n of thoracic interverteb ral disc 19551529 Active Omar mayberry MD [address] , [address], [place], [address], [place] [facility] 15:17:48 Osteoarthri tis of knee 473598334 Active Omar mayberry MD [address] , [address], [place], [address], [place] [facility] 15:53:33 Lumbosacral radiculopat hy 1566329 Active 2023 Omar mayberry MD [address] , [address], [place], [address], [place] [facility] 10:50:13 Problem Notes None recorded. Procedures Surgical History Date Name Laterality Status Provider Name and Address Organization Details Recorded Time 06/23/20 24 Lumbar Epidural steroid injection under fluoroscopic guidance completed Omar Coulter MD [address] , [address], [place], [address], [place] [facility] 06/23/2024 10:39:49 06/01/20 24 Fluoroscopic Guided Lumbar Facet Steroid Injections of levels completed Omar Coulter MD [address] , [address], [place], [address], [place] [facility] 06/01/2024 11:29:39 01/27/20 24 Lumbar Epidural steroid injection under fluoroscopic guidance completed Omar Coulter MD [address] , [address], [place], [address], [place] [facility] 01/27/2024 10:34:03 10/28/19 24 Lumbar Epidural steroid injection under fluoroscopic guidance completed Omar Coulter MD [address] , [address], [place], [address], [place] [facility] 10/28/2023 10:49:28 04/22/20 23 Lumbar Epidural steroid injection under fluoroscopic guidance completed Omar Coulter MD [address] , [address], [place], [address], [place] [facility] 04/22/2023 11:45:19 05/28/20 22 Lumbar Epidural steroid injection under fluoroscopic guidance completed Omar Coulter MD [address] , [address], [place], [address], [place] [facility] 05/29/2022 14:22:44 01/02/20 22 Lumbar Epidural steroid injection under fluoroscopic guidance completed Omar Coulter MD [address] , [address], [place], [address], [place] [facility] 01/01/2022 14:29:09 09/18/20 21 Lumbar Epidural steroid injection under fluoroscopic guidance completed Omar Coulter MD [address] , [address], [place], [address], [place] [facility] 09/19/2021 12:19:14 02/22/20 21 Intra-articular Knee Steroid Injection completed Omar Coulter MD [address] , [address], [place], [address], [place] [facility] 02/22/2021 14:06:45 02/16/20 21 Intra-articular Knee Steroid Injection completed Omar Coulter MD [address] , [address], [place], [address], [place] [facility] 02/15/2021 16:18:43 09/27/19 21 Thoracic Epidural Steroid injection under fluroscopic guidance completed Omar Coulter MD [address] , [address], [place], [address], [place] [facility] 09/27/2020 11:32:52 06/28/20 20 Trigger Point Injections under ultrasound guidance completed Omar Coulter MD [address] , [address], [place], [address], [place] [facility] 06/28/2020 14:43:13 02/10/20 20 Trigger Point Injections under ultrasound guidance completed Omar Coulter MD [address] , [address], [place], [address], [place] [facility] 02/10/2020 13:40:00 11/15/19 20 Trigger Point Injections under ultrasound guidance completed Omar Coulter MD [address] , [address], [place], [address], [place] [facility] 11/19/2019 09:42:53 10/25/19 20 Trigger Point Injections under ultrasound guidance completed Omar Coulter MD [address] , [address], [place], [address], [place] [facility] 10/25/2019 14:53:01 06/23/20 19 Trigger Point Injections under ultrasound guidance completed Omar Coulter MD [address] , [address], [place], [address], [place] [facility] 07/05/2019 11:23:51 06/07/20 19 Trigger Point Injections under ultrasound guidance completed Omar Coulter MD [address] [facility] , [address], [place], [address], [place] [facility] 06/07/2019 15:03:55 05/18/20 19 Trigger Point Injections under ultrasound guidance completed Omar Coulter MD [address] [facility] , [address], [place], [address], [place] [facility] 05/19/2019 09:45:26 Hysterectomy completed Missy Hansen [place] - [facility] 04/29/2019 13:26:48 Cholecystectomy completed Missy Hansen [place] [facility] 04/29/2019 13:27:00 Other completed Missy Hansne [place] - [facility] 04/29/2019 13:28:52 Carpal tunnel release completed Missy Hansen [place] [facility] 04/29/2019 13:29:05 section completed Missy Hansen [place] [facility] 04/29/2019 14:06:18 total knee replacement completed Omar Coulter MD [address] [facility] , [address], [place], [address], [place] [facility] 10/28/2023 10:49:05 Imaging Results None recorded. Procedure Notes None recorded. Medical Equipment None Reported. Allergies Allergen ID Allergen Name Allergen Category Reaction Reaction Severity Criticality Documentation Date Start Date Code Code System Note Provider Name and Address Organization Details Recorded Time 08100 Product containin g penicilli n (product) medicatio n facial swelling itching Not available Not available Not available 04/29/2019 37360 8001 SNOMED Missy trimble [place] [facility] 9 13:15:37 67989 Cipro medicatio n facial swelling itching Not available Not available Not available 04/29/2019 52197 3 RxNorm Missy trimble [place] [facility] 9 13:15:56 45704 Substance with sulfonami de structure and antibacte rial mechanism of action (substanc e) medicatio n facial swelling severe Not available 02/15/2021 75939 8003 SNOMED Tamiko trimble, [place] [facility] 1 15:09:34 27328 Keflex medicatio n facial swelling severe Not available 02/15/2021 81602 7 RxNorm Tamiko Sequeira null, [place] [facility] 1 15:09:55 57900 Non-stero idal anti-infl ammatory agent (product) medicatio n Not available Not available unabletoasse ss 05/28/2022 70106 005 SNOMED per renal Thenu Juice mayberry MD [address] , [address], [place], [address], [place] [facility] 2 13:18:13 69556 hydromorp omid medicatio n vomiting severe low 06/09/20232022 3423 RxNorm Dee Dee Santoue nai, [place] [facility] 3 11:42:51 27995 tramadol medicatio n vomiting severe low 06/09/20232022 49445 RxNorm Dee Dee Cuellar null, [place] [facility] 3 11:43:26 52776 meloxicam medicatio n Not available Not available Not available 01/27/2024 20764 RxNorm Kokimarichuy Hollins null, [place] [facility] 4 10:07:29 Medications Name Sig Start Date Stop Date Status Note LastModified by Organization Details LastModified Time cyclobenzap rine 10 mg tablet 04/29 completed Not Available Not Available Not Available anastrozole 1 mg tablet TAKE 1 TABLET BY MOUTH DAILY 05/28 completed Not Available Not Available Not Available neomycin-po lymyxin-hyd rocort 3.5 mg/mL-10,00 0 unit/mL-1 % ear solution INTILL 4-5 DROPS INTHE BOTH EARS EVERYDAY active Not Available Not Available No t Available carvedilol 25 mg tablet TAKE 1 TABLET BY MOUTH TWICE DAILY active Not Available Not Available No t Available prednisone 10 mg tablet 09/27 completed Not Available Not Available Not Available doxycycline hyclate 100 mg capsule TAKE 1 CAPSULE BY MOUTH TWICE DAILY FOR 10 DAYS 11/25 /2024 completed Not Available Not Available Not Available [...] Not Available Not Available No t Available clarithromy enrique 250 mg tablet TAKE 1 TABLET BY MOUTH [...] completed Not Available Not Available Not Available sulfamethox azole 800 mg-trimetho prim 160 mg tablet TAKE 1 TABLET BY MOUTH TWICE DAILY active Not Available Not Available No t Available doxycycline monohydrate 100 mg tablet TAKE 1 TABLET BY MOUTH TWICE DAILY active Not Available Not Available No t Available tramadol 50 mg tablet TAKE 1 [...] completed Not Available Not Available Not Available hydrocortis one-acetic acid 1 %-2 % ear drops active Not Available Not Available Not Available benzonatate 100 mg capsule TAKE 1 CAPSULE BY MOUTH THREE TIMES DAILY active Not Available Not Available No t Available doxycycline monohydrate 100 mg capsule TAKE 1 CAPSULE BY MOUTH TWICE DAILY active Not Available Not Available No t Available levothyroxi ne 50 mcg tablet TAKE [...] TAKE 1 TABLET BY MOUTH TWICE DAILY 11/01 completed Not Available Not Available Not Available diazepam 5 mg tablet TAKE 1 [...] completed Not Available Not Available Not Available ciprofloxac in 0.3 %-dexametha sone 0.1 % ear drops,suspe nsion active Not Available Not Available Not Available nitrofurant [...] Available Not Available Not Available Fluzone High-Dose (PF) 180 mcg/0.5 mL intramuscul ar syringe [...] % 206 mm[Hg] 84 mm[Hg] Koki Hollins [place] [facility] 4 14:39:48 Date Recorded Body height Heart rate Oxygen saturation Oxygen saturation in Arterial blood by Pulse oximetry Systolic blood pressure Diastolic blood pressure Provider Name and Address Organization Details Last Updated DateTime 4 154.94 cm 61 /min 99 % 99 % 175 mm[Hg] 72 mm[Hg] Joyce Barney [place] [facility] 4 11:00:27 Date [...] mm[Hg] 82 mm[Hg] Koki Hollins [place] [facility] 4 10:06:03 Social History Question Answer Notes LastModified by Organizat ion Details LastModified Time Tobacco Smoking Status Former Smoker Quit x 50 Not Available [employer] 07/07/2020 03:16:09 What Is Your Level Of Alcohol Consumption? Occasional [id number] Information not available 07/07/2020 Are You Currently Employed? Yes [id number] Information not available 07/07/2020 Which Illicit Or Recreational Drugs Have You Used? 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 Alone Information not available 04/29/2019 Marital Status Informatio n not available 04/29/2019 How Many Years Have You Smoked Tobacco? 3 [id number] Information not available 07/07/2020 Sex: Unknown Functional Status None recorded. Mental Status None recorded. Family History Relationship Description Onset Age of this Age Resolved Age Notes LastModified by Organization Details LastModified Time Mother Alzheimer's disease Not available 2018 13:21:48 Mother Family history of Thyroid disorder Not available 2018 13:22:35 Maternal Grandmother Alzheimer's disease Not available 2018 13:21:48 Maternal Aunt Alzheimer's disease Not available 2018 13:21:48 Father Diabetes mellitus Not available 2018 13:22:01 Father Heart disease Not available 2018 13:22:09 Medical History Condition Response Diabetes Y Gout Y Arthritis Y Kidney Stones Y High Cholesterol Y Hypertension Y Hypothyroidism Y Depression Y Kidney Disease Y Gynecological HistoryNo gynecological history recorded. Obstetrics History GPAL:G 0 P 0 0 0 0 Past Encounters Encounter ID Performer Location Encounter Start Date Encounter Closed Date Diagnosis/Indication Diagnosis SNOMED-CT Code Diagnosis ICD10 Code Diagnosis Note [id number] Omar Coulter MD PAIN OFFICE [address] [facility] [place] [address] 04/29/2019 13:08:47 04/29/2019 15:48:56 Muscle pain 96765502 M79.10 Degenerati on of cervical intervertebral disc 72673722 M50.30 Cervical s pondylosis without myelopathy 766443286 M47.812 Degenerati on of thoracic intervertebral disc 37549163 M51.34 [id number] Omar Coulter MD PAIN OFFICE [address] [facility] [place] [address] 05/18/2019 13:05:28 05/19/2019 09:47:26 Muscle pain 81498315 M79.10 Degenerati on of cervical intervertebral disc 81886740 M50.30 Cervical s pondylosis without myelopathy 561396148 M47.812 Degenerati on of thoracic intervertebral disc 95521354 M51.34 [id number] Omar Coulter MD PAIN OFFICE [address] [place] [address] 06/07/2019 12:59:28 06/07/2019 15:14:41 Muscle pain 71349408 M79.10 Degenerati on of cervical intervertebral disc 29328734 M50.30 Cervical s pondylosis without myelopathy 534968610 M47.812 Degenerati on of thoracic intervertebral disc 91431019 M51.34 [id number] Omar Coulter MD PAIN OFFICE [address] [facility] [place] [address] 06/23/2019 15:13:29 07/05/2019 11:29:45 Muscle pain 84458314 M79.10 Degenerati on of cervical intervertebral disc 38000996 M50.30 Cervical s pondylosis without myelopathy 899257237 M47.812 Degenerati on of thoracic intervertebral disc 36402293 M51.34 [id number] Omar Coulter MD PAIN OFFICE [address] [place] [address] 10/25/2019 14:17:47 10/25/2019 14:54:29 Muscle pain 59679517 M79.10 Degenerati on of cervical intervertebral disc 36810474 M50.30 Cervical s pondylosis without myelopathy 396802138 M47.812 Degenerati on of thoracic intervertebral disc 26034509 M51.34 [id number] Omar Coulter MD PAIN OFFICE [address] [place] [address] 11/15/2019 14:20:57 11/19/2019 09:46:43 Muscle pain 23025831 M79.18 Degenerati on of cervical intervertebral disc 38338104 M50.30 Cervical s pondylosis without myelopathy 394323571 M47.812 Degenerati on of thoracic intervertebral disc 00189588 M51.34 [id number] Omar Coulter MD PAIN OFFICE [address] [place] [address] 01/25/2020 10:30:04 02/10/2020 10:22:36 Muscle pain 02686239 M79.10 Degenerati on of cervical intervertebral disc 47915949 M50.30 Cervical s pondylosis without myelopathy 062004516 M47.812 Degenerati on of thoracic intervertebral disc 29185628 M51.34 [id number] Omar Coulter MD PAIN OFFICE [address] [place] [address] 02/10/2020 13:00:54 02/10/2020 13:45:55 Muscle pain 60261110 M79.18 Degenerati on of cervical intervertebral disc 83230438 M50.30 Cervical s pondylosis without myelopathy 837411657 M47.812 Degenerati on of thoracic intervertebral disc 65507323 M51.34 [id number] Omar Coulter MD PAIN OFFICE [address] [place] [address] 05/18/2020 13:32:35 05/18/2020 15:44:35 Muscle pain 69384926 M79.10 Degenerati on of cervical intervertebral disc 00037186 M50.30 Cervical s pondylosis without myelopathy 912900812 M47.812 Degenerati on of thoracic intervertebral disc 21549018 M51.34 [id number] Omar Coulter MD [facility] PA[facility] [address] [facility] [address] 06/28/2020 12:49:27 06/28/2020 15:28:04 Muscle pain 53574178 M79.18 Degenerati on of cervical intervertebral disc 68361213 M50.30 Cervical s pondylosis without myelopathy 017279411 M47.812 Degenerati on of thoracic intervertebral disc 91564559 M51.34 [id number] Omar Coulter MD PAIN OFFICE [address] [facility] [address] 09/20/2020 08:42:02 09/20/2020 11:18:24 Thoracic radiculopathy 31151184 M54.14 Muscle pain 46103962 M79 .10 Degenerati on of cervical intervertebral disc 70926149 M50.30 Cervical s pondylosis without myelopathy 979857467 M47.812 Degenerati on of thoracic intervertebral disc 29375628 M51.34 [id number] Omar Coulter MD PAIN OFFICE [address] [facility] [place] [address] 09/27/2020 10:02:38 09/27/2020 13:59:25 Thoracic radiculopathy 28390102 M54.14 Muscle pain 86228898 M79 .10 Degenerati on of cervical intervertebral disc 69907389 M50.30 Cervical s pondylosis without myelopathy 475770800 M47.812 Degenerati on of thoracic intervertebral disc 91977994 M51.34 [id number] Omar Coulter MD [facility] PA[facility] [address] [facility] [address] 10/26/2020 15:31:42 10/26/2020 15:51:53 Thoracic radiculopathy 65921301 M54.14 Muscle pain 67531672 M79 .10 Degenerati on of cervical intervertebral disc 08529749 M50.30 Cervical s pondylosis without myelopathy 846152138 M47.812 Degenerati on of thoracic intervertebral disc 61281650 M51.34 [id number] Omar Coulter MD [facility] PAIN [facility]ICE [address] [place] [address] 02/05/2021 10:22:28 02/05/2021 15:56:53 Osteoarthritis of knee 501998092 M17.9 [id number] Omar Coulter MD [facility] PAIN OFFICE [address] [place] [address] 02/15/2021 14:59:34 02/15/2021 16:22:18 Osteoarthritis of knee 904184611 M17.0 [id number] Omar Coulter MD [facility] PAIN [facility]ICE [address] [place] [address] 02/21/2021 14:42:44 02/22/2021 14:39:41 Osteoarthritis of knee 617811184 M17.0 [id number] Omar Coulter MD [facility] PAIN [facility] [address] [place] [address] 06/08/2021 08:59:50 06/15/2021 10:30:41 Osteoarthritis of hip 427254683 M16.9 Arthropath y of lumbar facet joint 997398248 M46.96 [id number] Omar Coulter MD [facility] PA[facility] [address] [place] [address] 09/18/2021 09:27:54 09/19/2021 12:22:33 Osteoarthritis of hip 244700752 M16.9 Arthropath y of lumbar facet joint 405657155 M46.96 Lumbosacra l radiculopathy 1590312 M54.17 [id number] Omar Coulter MD [facility] PA[facility] [address] [place] [address] 10/18/2021 11:30:20 10/18/2021 11:59:09 Osteoarthritis of hip 007053859 M16.9 Arthropath y of lumbar facet joint 516889603 M46.96 Lumbosacra l radiculopathy 2062670 M54.17 [id number] Omar Coulter MD [facility] [address] [facility] [address] 01/01/2022 12:59:18 01/01/2022 14:31:36 Osteoarthritis of hip 652558531 M16.9 Arthropath y of lumbar facet joint 239834900 M46.96 Lumbosacra l radiculopathy 6254164 M54.17 [id number] Omar Coulter MD [facility] PA[facility] [address] [facility] [address] 05/28/2022 13:05:44 05/29/2022 14:25:07 Osteoarthritis of hip 615114146 M16.9 Arthropath y of lumbar facet joint 298567566 M46.96 Lumbosacra l radiculopathy 9480983 M54.17 [id number] Omar Coulter MD [facility] PA[facility] [address] [facility] [address] 04/22/2023 11:14:39 04/22/2023 14:42:39 Osteoarthritis of hip 631532889 M16.9 Arthropath y of lumbar facet joint 396095133 M46.96 Lumbosacra l radiculopathy 9951296 M54.17 [id number] Omar Coulter MD [facility] PA[facility] OFF[facility] [address] [facility] [address] 06/09/2023 11:18:38 06/09/2023 11:58:43 Osteoarthritis of hip 358577048 M16.9 Arthropath y of lumbar facet joint 980879748 M46.96 Lumbosacra l radiculopathy 1990346 M54.17 [id number] Omar Coulter MD [facility] PAIN OFFICE [address] [facility] [address] 10/28/2023 09:54:59 10/28/2023 14:24:20 Lumbosacral radiculopathy 0537214 M54.17 Degenerati on of lumbar intervertebral disc 81235920 M51.36 [id number] Omar Coulter MD [facility] PA[facility] [address] [place] [address] 01/27/2024 09:58:44 01/27/2024 10:59:54 Lumbosacral radiculopathy 8511620 M54.17 Degenerati on of lumbar intervertebral disc 21031193 M51.36 [id number] Omar Coulter MD PAIN OFFICE [address] [place] [address] 05/26/2024 14:28:52 05/26/2024 15:33:11 Lumbosacral spondylosis without myelopathy 66609244 M47.817 [id number] Omar Coulter MD [facility] PAIN [facility] [address] [place] [address] 06/01/2024 10:50:13 06/01/2024 16:05:47 Lumbosacral spondylosis without myelopathy 02446860 M47.817 [id number] Omar Coulter MD [facility] PA[facility] [address] [facility] [address] 06/23/2024 10:08:25 06/24/2024 08:51:47 Lumbosacral radiculopathy 5686670 M54.17 Degenerati on of lumbar intervertebral disc 51517734 M51.362 [id number] Omar Coulter MD [facility] PA[facility] [address] [facility] [place] [address] 08/16/2024 09:50:57 08/23/2024 11:42:01 Lumbosacral radiculopathy 0209730 M54.17 Neuropathy due to diabetes mellitus 510005056 E11.40 Osteoarthritis of hip 23 0747996 M16.9 Arthropath y of lumbar facet joint 717019753 M46.96 Health Concerns Section Related Observation LastModified by Organization Detai ls LastModified Time None Recorded Concern Status LastModified by Organization Details LastModified Time None Recorded Advance Directives Directive None Recorded Payers Encounter Date Sequence Insurance Name Policy Number Policy Jones Covered Member ID Jones Member ID Guarantor Name 01/27/2024 2 [employer] (MEDICARE SUPPLEMENT) Kayleen Wilson [id number] Kayleen Wilson 01/27/2024 1 [place] [facility] Kayleen Viramontest [id number] 4 Kayleen [place] 05/26/2024 2 [employer] (MEDICARE SUPPLEMENT) Kayleen [place] [id number] Kayleen [place] 05/26/2024 1 [place] [facility] Kayleen Viramontest [id number] 4 Kayleen Steve 06/01/2024 2 [employer] (MEDICARE SUPPLEMENT) Kayleen Steve [id number] Kayleen Steve 06/01/2024 1 [place] [facility] Kayleen Adrianoit [id number] 4 Kayleen [place] 06/23/2024 2 [employer] (MEDICARE SUPPLEMENT) Kayleen Adrianoit [id number] Kayleen [place] 06/23/2024 1 [place] [facility] Kayleen Viramontest [id number] 4 Kayleen Steve 08/16/2024 2 [employer] (MEDICARE SUPPLEMENT) Kayleen Adrianoit [id number] Kayleen Steve 08/16/2024 1 [place] [facility] Kayleen Viramontest [id number] 4 Kayleen Adrianoit Notes Date Note Type Note Provider Name and Address Organization Details Recorded Time 01/27/2024 text/html She is here for a lumbar epidural steroid injection under fluoroscopic guidance. Omar Coulter MD [facility] [address], [place], [address], [facility] - Pain Management 01/27/2024 16:23:21 05/26/2024 text/html Kayleen [...] She is going on a trip to [place] and then to [place] next year and wants to be able to walk. 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 She states she has been depressed and does not go out due to pain. She has no radiating pain presently and has no history of bladder or bowel incontinence. Omar Coulter MD [address] , [address], [place], [address], [place] - Pain Management 05/26/2024 15:45:10 06/01/2024 text/html She is here for a left lumbar facet joint injection under fluoroscopic guidance Omar Coulter MD [address] , [address], [place], [address], [place] - Pain [place] 06/01/2024 16:09:36 06/23/2024 text/html She is here for a lumbar epidural steroid injection under fluoroscopic guidance. Omar Coulter MD [address] , [address], [place], [address], [place] - Pain [place] 06/24/2024 08:54:02 08/16/2024 text/html This [...] done next year. She has been to [facility] and states she had a good trip. She is having severe pain in her right mid back .The facet joint injection did not help. She has not trialed lidocaine patches. She has seen her PCP for the pain. Omar Coulter MD [address] , [address], [place], [address], [facility] - Pain Management 08/23/2024 11:42:41 OBGyn Episode No OBEpisode recorded.
--- OUTSIDE RECORDS SUMMARY | 2024-11-12 11:52 | XMS_ITS | Clinical Summary ---
Author Organization [facility] Address [address] [place] [address] Care Team Providers Care Rail Grinder Name Role Phone John Herrera MD Primary Care Provider Allergies Active Allergy Reactions Criticality Noted Date Comments Cephalexin Other (See Comments) 01/19/2021 Bloating in face, itchy Ciprofibrate Other (See Comments) 11/26/2023 Bloating and itchy Ciprofloxacin Itching,Other (See Comments) Low 01/18/2021 Orphenadrine Other (See Comments) 11/26/2023 Bloating and itchy Penicillins Itching,Other (See Comments) Low 01/18/2021 Sulfa Antibiotics Other (See Comments) 01/20/20 Bloating and itchy Sulfamethoxazole-Trimeth oprim Other (See [...] Department Care Team Description 10/19/2024 Telephone [facility] Department of Internal Medicine [employer] [address] [place] [address] John Herrera MD 08/13/2024 10:00 AM EST Office Visit [facility] Department of Internal Medicine & Nephrology [employer] [address] [place] [address] Karson Law MD Secondary hyperparathyroidism (HCC) (Primary Dx); Hypovitaminosis D; CKD (chronic kidney disease) stage 2, GFR 60-89 ml/min; Essential hypertension; Anemia associated with chronic renal failure; Diabetic nephropathy associated with type 2 diabetes mellitus (HCC); Nephrolithiasis 08/13/2024 Orders Only [facility] Department of Internal Medicine & Nephrology [employer] [address] [place] [address] Karson Law MD Secondary hyperparathyroidism (HCC); Hypovitaminosis [...] 03/18/2025 10:20 AM EDT Office Visit [facility] Department of Internal Medicine & Nephrology [employer] [address] [place] [address] Karson Law MD [address] [facility] [address] [place] [address] Health Maintenance Due Date Last Done Comments [...] series) 2022 Influenza Vaccine 04/22/2024 COVID-19 Vaccine (1 - 2023-2 5 season) 2024 Hemoglobin A1C 02/07/2025 08/10/2024 Creatinine with GFR 08/10/2025 08/10/2024 Hepatitis B Vaccines Aged Out No long er eligible based on patient's age to complete this topic Procedures Procedure Name Priority Date/Time Associated Diagnosis Comments HEMOGLOBIN A1C Routine 08/10/2024 2:47 PM EST BASIC METABOLIC PANEL Routine 08/10/2024 2:47 PM EST from Last 3 Months or Most Recently Relevant to Health Maintenance Results * (ABNORMAL) Hemoglobin A1C (08/10/2024 2:47 PM EST) Hemoglobin A1C 5.7(H) 4.8 - 5.6 % [facility] Comment: ? Prediabetes: 5.7 - 6.4 ? Diabetes: >6.4 ? Glycemic control for adults with diabetes: <7.0 08/10/2024 2:47 PM EST 08/10/2024 Narrative [facility] ([place]) - 08/11/2024 6:10 AM EST Performed at: ??01 - [facility] [address] ??[id number] Abstracter: Suzi Stern MD, Phone: ??[phone] Karson Law MD LAB BLOOD ORDERAB LES [facility] ([place]) [facility] * (ABNORMAL) BASIC METABOLIC PANEL [...] EST 08/10/2024 Narrative [facility] ([place]) - 08/11/2024 7:07 AM EST Performed at: ??01 - [facility] [address] ??[id number] Abstracter: Suzi Stern MD, Phone: ??[phone] Karson Law MD LAB BLOOD ORDERAB LES [facility] ([place]) [facility] 1 from Last 3 Months or Most Recently Relevant to Health Maintenance Care Teams Rail Grinder Relationship Specialty Start Date End Date John Herrera MD [address] [place] [address] PCP - General Family Medicine 02/03/24
== END 2024-11-12 10:47 | disposition home or self-care (01) ==
LOC: HO.SH 10:46
PROVIDERS: Visit Provider Nurse Practitioner Family
DX: Z13.89 Encounter for screening for other disorder (principal)

== ENCOUNTER 2024-12-09 12:30 | Outpatient (REF) | payer SELFPAY ==
--- NOTE | 2024-12-10 10:40 | MHC.AU.HA3 ---
Hearing Instrument Follow-Up- Binaural Date of Visit: 12/10/24 Right Ear: Make, Model, Color, Serial Number: Pedrito Colladoo P70 ITCs SN: [id number] Color: [place] Surveillance Director Repair Warranty: 01/01/2027 Surveillance Director Loss and Damage Warranty: 01/01/2027 [facility] Service Plan: 12/16/2024 Battery Size: 312 Type of Wax Guard: CeruStop Dispensed By: [facility] Date of Fittin Left Ear: Make, Model, Color, Serial Number: Radhaak Virto P70 ITCs SN: [id number] Color: [place] Surveillance Director Repair Warranty: 01/01/2027 Surveillance Director Loss and Damage Warranty: 01/01/2027 [facility] Service Plan: 12/17/2023 Battery Size: 312 Type of Wax Guard: CeruStop Dispensed By: [facility] Date of Fittin12/17/2023 Follow-Up Summary: Left aid dropped off 12/09/24 . Found wax guard visibly clogged. Cleaned aid, replaced wax guard, listening check positive. Recommendations: Recommendations: Hearing instrument follow-up or maintenance as needed. Diagnosis Code(s): Primary Diagnosis: H90.3 Bilateral Sensorineural Hearing Loss Signature: Provider: Jovanny Dickens, [facility]
== END 2024-12-09 12:31 | disposition home or self-care (01) ==
LOC: HO.HAP 12:30
PROVIDERS: Visit Provider Nurse Practitioner Family
DX: Z13.89 Encounter for screening for other disorder (principal)

== ENCOUNTER 2024-12-10 14:11 | Outpatient (REF) | payer SELFPAY | END 2024-12-10 14:12 | disposition home or self-care (01) | LOC: HO.HAP 14:11 | PROVIDERS: Visit Provider Nurse Practitioner Family | DX: Z13.89 Encounter for screening for other disorder (principal) ==

== ENCOUNTER 2024-12-14 10:10 | Outpatient (REF) | payer MEDICARE, OTHER, SELFPAY ==
--- OUTSIDE RECORDS SUMMARY | 2024-12-14 12:08 | XMS_ITS | Encounter Summary ---
Author Organization [facility] Address [address] [place] [address] Care Team Providers Care Hotel Security Officer Name Role Phone John Herrera MD Primary Care Provider Encounter Details Date Type Department Care Team (Late st Contact Info) Description 02/03/2024 Scanned Document [facility] Department of Internal Medicine & Nephrology [address] [phone] Karson Law MD [address] [place] [id number] Social History Tobacco Use Types Packs/Day Years Used Date Smoking Tobacco: Never Assessed Sex and Gender Information Value Date Recorded Sex Assigned at Not on file Gender Identity Not on file Sexual Orientation Not on file documented as of this encounter Plan of Treatment Upcoming Encounters Date Type Department Care Team (Late st Contact Info) Description 03/18/2025 10:20 AM EDT Office Visit [facility] Department of Internal Medicine & Nephrology [place] [address] [place] [address] Karson Law MD [address] [phone] documented as of this encounter Visit Diagnoses Not on filedocumented in this encounter Care Teams Hotel Security Officer Relationship Specialty Start Date End Date John Herrera MD [address] [place] [address] PCP - General Family Medicine 02/03/24 documented as of this encounter
--- OUTSIDE RECORDS SUMMARY | 2024-12-14 12:08 | XMS_ITS ---
Author Organization [facility] Address [address] [place] [address] Care Team Providers Care Oil Well Logger Name Role Phone CHANDU CHISHOLM Primary Care Provider Taiwo Azar Unavailable [phone] REASON FOR VISIT diarrhea,wt loss,nausea Problems Problem Type SNOMED Code ICD Code Onset Dates Problem Status W/U Status Risk Notes Problem Diverticular disease of colon (253478887) Diverticulosis of large intestine without perforation or abscess without bleeding (K57.30) Active confirmed Encounters Encounter Location Date Provider Diagnosis [facility] Outpatient [address] [place], [place] [id number] 03/26/2024 Taiwo Mcintosh Diarrhea R19.7 ; W [...] NANCY VORA CDOB: 7 (79 yo F)Acc No.[id number]:03/26/2024 EGD and COL/MAC Patient:NANCY JUSTICE Provider:?Taiwo Mcintosh MD :1945???Age:78 Y???Sex:Female D ate:03/26/2024 Address:[place] [address] , [place] [facility] Pcp:CHANDU CHISHOLM Subjective: * Chief Complaints: * ???1. Diarrhea,wt loss,nause a. * Medical History:? Objective: * Vitals:? Assessment: * Assessment: 1.?Diarrhea - R19.7 (Primary )???2.?Weight loss - R63.4???3.?Diverticulosis of large intestine without perforation or abscess without bleeding - K57.30???4.?Other hemorrhoids - K64.8???5.?Nausea - R11.0???6.?Hiatal hernia - K44.9??? Plan: * Treatment: * Procedure Codes:?54285 COLON OSCOPY AND BIOPSY, 0529F INTRVL 3+YRS PTS CLNSCP DOCD, 0528F RCMND FLW-UP 10 YRS DOCD, Modifiers: 8P , 12498 UPPER GI ENDOSCOPY, BIOPSY * * The named appointment provid er may or may not be the originator of this progress note, and it is not deemed complete until electronically signed by the appointment provider. Sign off status: Pending * Provider:?Taiwo Mcintosh MD Date:? 024 Generated for Leidy elaine/Manolo/eTransmitting on:?12/14/2024 12:08 PM EDT
--- OUTSIDE RECORDS SUMMARY | 2024-12-14 12:08 | XMS_ITS | Clinical Summary ---
Author Organization [facility] Address [address] [place] [address] Care Team Providers Care Oil Speculator Name Role Phone John Herrera Primary Care Provider Allergies Active Allergy Reactions [...] Hepatitis C Screening 1945 COVID-19 Vaccine (#1) 01/01/1946 Depression Screening 1959 Preventative Health Evaluation 1965 DTap / Tdap / Td (1 - Tdap) 1966 Shingrix-Zoster Vaccine (1 of 2) 1997 Fall Risk Assessment 2012 Osteoporosis Screening (DEXA Scan) 2012 Pneumococcal Vaccine (1 of 1 - PCV) 2012 RSV Adult > 60+ Yrs or Pregn ant (1 - 1-dose 75+ series) 2022 Influenza Vaccine (#1) 2024 Hepatitis B Vaccines Aged Out No long er eligible based on patient's age to complete this topic RSV Ped < 20 months Aged Out No longe r eligible based on patient's age to complete this topic Care Teams Oil Speculator Relationship Specialty Start Date End Date John Herrera [address] [facility] [place] [address] PCP - General Family Medicine 05/30/23
--- OUTSIDE RECORDS SUMMARY | 2024-12-14 12:08 | XMS_ITS | Encounter Summary ---
Author Organization [facility] Address [address] [place] [address] Phone Care Team Providers Care Mechanical Cad Drafter Name Role Phone John Herrera NP Primary Care Provider [phone] Reason for Visit * Reason Comments Med Refill Encounter Details Date Type Department Care Team (Late st Contact Info) Description 11/15/2023 Refill [facility] [address] [place] [phone] Karson Law MD Social History Tobacco Use [...] on filedocumented in this encounter Care Teams Mechanical Cad Drafter Relationship Specialty Start Date End Date John Herrera NP [address] [facility] [place] [address] PCP - General Nurse Practitioner 09/05/21 documented as of this encounter
--- OUTSIDE RECORDS SUMMARY | 2024-12-14 12:09 | XMS_ITS ---
Author Organization [facility] Address [address] [place] [address] Care Team Providers Care Marker Machine Name Role Phone CHANDU CHISHOLM Primary Care Provider Taiwo Azar [phone] Encounters Encounter Location Date Provider Diagnosis [facility] [address] [place] [address] 03/29/2024 Taiwo Mcintosh Plan Of Treatment No Information Progress Notes * NANCY VORA CDOB: [birth year] (78 yo F)Acc No.[id number]:03/29/2024 Patient:?NANCY VORA :1945???Age:78 Y???Sex:Female Address:[address] , [place] [address] * true * Date:? Generated for Wangi argentina/Manolo/eTransmitting on:?12/14/2024 12:09 PM EDT
--- OUTSIDE RECORDS SUMMARY | 2024-12-14 12:09 | XMS_ITS | Clinical Summary ---
Author Organization [facility] Address [address] [facility] [address] [place] [address] Phone Care Team Providers Care Supervisor Lending Activities Name Role Phone John Herrera NP Primary Care Provider [phone] Allergies Active Allergy Reactions Criticality Noted Date [...] [facility] [place] [address] [place] [address] Maria A Mendez ARNP Stage 3b chronic [...] PM EST) Hemoglobin A1C 5.4 (4.0-5.6) % [facility] Comment: MONITORING: In known diabetic patients, hemoglobin A1c targets should be discussed with health care provider. DIAGNOSTIC USE: ??The [place] Diabetes [employer] (ADA) and the World Health [...] Supplement 1 Testing performed or reported by [facility], a Service of [facility], [address] [place] [address] Niall Pinto MD, Body Trimmer [facility]# [id number] Blood (Blood, Venous) 10/14/2022 4:03 PM EST 10/14/2022 4:05 PM EST us Karson Law MD LAB BLOOD ORDERABLES Carol rasmussen Result [facility] from Last 3 Months or Most Recently Relevant to Health Maintenance Insurance [employer] MEDICARE [facility] MEDICARE Care Teams Supervisor Lending Activities Relationship Specialty Start Date End Date John Herrera NP [address] [place] [address] PCP - General Nurse Practitioner 09/05/21
--- OUTSIDE RECORDS SUMMARY | 2024-12-14 12:09 | XMS_ITS | Data Portability ---
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 [...] may be a candidate for a RFA [email or web address] Not available 06/01/2024 11:31:00 06/23/2024 06/23/2024 Kayleen [...] lumbar epidural injection before her trip to [place] next year ora Not available 08/23/2024 11:41:24 12/07/2024 12/07/2024 Kayleen Wilson is a 79 year old woman with complaints of low back pain radiating into both hips. She is here for a Lumbar epidural steroid injection under fluoroscopic guidance . The risks and benefits of the procedure? ? ? were discussed in detail. She wishes to proceed. She will follow up in three months ora Not available 12/07/2024 10:17:33 Plan of Treatment Reminders Order Date Submit Date Provider Last Modified By Organization Details Last Modified Time Details Appointments PROCEDURE 2024 11:00A Veronica mayberry MD Not available Not available Not available Lab None recorded. Referral None recorded. Procedures None recorded. Surgeries None recorded. Imaging None recorded. Medication Orders lidocaine 5 % topical patch 2023 024 [id number] [address] [place], [place], [id number], 08/16/2024 10:38:29 Patient TargetsNo targets recorded. Patient Instructions Encounter Date Encounter Id Patient Instructions Last Modified By Organization Details Last Modified Time 05/26/2024 [id number] She was advised against bed rest lasting longer than four days and to continue activities as tolerated. [email or web address] Not available 05/26/2024 15:26:50 06/01/2024 [id number] She was advised against bed rest lasting longer than four days and to continue activities as tolerated. [email or web address] Not available 06/01/2024 11:30:11 12/07/2024 [id number] She was advised against bed rest lasting longer than four days and to continue activities as tolerated. [email or web address] Not available 12/07/2024 10:18:55 Reason for Referral None Reported. Problems Name Problem SNOMED Code Status Onset Date Resolution Date Notes Provider Name and Address Organization Details Recorded Time Degeneratio n of lumbar interverteb ral disc 38373629 Completed 04/29/2019 Omar mayberry MD [address] , [address], [place], [address], [place] [facility] 15:16:59 Degeneratio n of cervical interverteb ral disc 97515674 Active Omar mayberry MD [address] , [address], [place], [address], [place] [facility] 9 15:16:55 Muscle pain 76199511 Lola mayberry MD [address] , [address], [place], [address], [place] [facility] 9 15:17:16 Cervical spondylosis without myelopathy 690855835 Active Omar mayberry MD [address] , [address], [place], [address], [place] [facility] 9 15:17:31 Degeneratio n of thoracic interverteb ral disc 98124654 Lola mayberry MD [address] , [address], [place], [address], [place] [facility] 9 15:17:48 Osteoarthri tis of knee 405150896 Lola mayberry MD [address] , [address], [place], [address], [place] [facility] 15:53:33 Lumbosacral radiculopat hy 0405399 Active 2023 Omar mayberry MD [address] , [address], [place], [address], [place] [facility] 4 10:50:13 Problem Notes None recorded. Procedures Surgical History Date Name Laterality Status Provider Name and Address Organization Details Recorded Time 12/08/19 25 Lumbar Epidural steroid injection under fluoroscopic guidance completed Omar Coulter MD [address] , [address], [place], [address], [place] [facility] 12/07/2024 10:18:43 06/23/20 24 Lumbar Epidural steroid injection under fluoroscopic guidance completed Omar Coulter MD [address] , [address], [place], [address], [place] [facility] 06/23/2024 10:39:49 06/01/20 24 Fluoroscopic Guided Lumbar Facet Steroid Injections of levels completed Omar Coulter MD [address] , [address], [place], [address], [place] [facility] 06/01/2024 11:29:39 01/27/20 24 Lumbar Epidural steroid injection under fluoroscopic guidance completed Omar Coulter MD [address] , [address], [place], [address], [place] [facility] 01/27/2024 10:34:03 10/28/19 24 Lumbar Epidural steroid injection under fluoroscopic guidance completed Omar Coulter MD [address] , [address], [place], [address], [place] [facility] 10/28/2023 10:49:28 04/22/20 23 Lumbar Epidural steroid injection under fluoroscopic guidance completed Omar Coulter MD [address] , [address], [place], [address], [place] [facility] 04/22/2023 11:45:19 05/28/20 22 Lumbar Epidural steroid injection under fluoroscopic guidance completed Omar Coulter MD [address] , [address], [place], [address], [place] [facility] 05/29/2022 14:22:44 01/02/20 22 Lumbar Epidural steroid injection under fluoroscopic guidance completed Omar Coulter MD [address] , [address], [place], [address], [place] [facility] 01/01/2022 14:29:09 09/18/20 21 Lumbar Epidural steroid injection under fluoroscopic guidance completed Omar Coulter MD [address] , [address], [place], [address], [place] [facility] 09/19/2021 12:19:14 02/22/20 21 Intra-articular Knee Steroid Injection completed Omar Coulter MD [address] , [address], [place], [address], [place] [facility] 02/22/2021 14:06:45 02/16/20 21 Intra-articular Knee Steroid Injection completed Omar Coulter MD [address] , [address], [place], [address], [place] [facility] 02/15/2021 16:18:43 09/27/19 21 Thoracic Epidural Steroid injection under fluroscopic guidance completed Omar Coulter MD [address] , [address], [place], [address], [place] [facility] 09/27/2020 11:32:52 06/28/20 20 Trigger Point Injections under ultrasound guidance completed Omar Coulter MD [address] , [address], [place], [address], [place] [facility] 06/28/2020 14:43:13 02/10/20 20 Trigger Point Injections under ultrasound guidance completed Omar Coulter MD [address] , [address], [place], [address], [place] [facility] 02/10/2020 13:40:00 11/15/19 20 Trigger Point Injections under ultrasound guidance completed Omar Coulter MD [address] , [address], [place], [address], [place] [facility] 11/19/2019 09:42:53 10/25/19 20 Trigger Point Injections under ultrasound guidance completed Omar Coulter MD [address] [facility] , [address], [place], [address], [place] [facility] 10/25/2019 14:53:01 06/23/20 19 Trigger Point Injections under ultrasound guidance completed Omar Coulter MD [address] [facility] , [address], [place], [address], [place] [facility] 07/05/2019 11:23:51 06/07/20 19 Trigger Point Injections under ultrasound guidance completed Omar Coulter MD [address] [facility] , [address], [place], [address], [place] [facility] 06/07/2019 15:03:55 05/18/20 19 Trigger Point Injections under ultrasound guidance completed Omar Coulter MD [address] [facility] , [address], [place], [address], [place] [facility] 05/19/2019 [...] knee replacement completed Omar Coulter MD [address] [facility] , [address], [place], [address], [place] [facility] 10/28/2023 10:49:05 Imaging Results None recorded. Procedure Notes None recorded. Medical Equipment None Reported. Allergies Allergen ID Allergen Name Allergen Category Reaction Reaction Severity Criticality Documentation Date Start Date Code Code System Note Provider Name and Address Organization Details Recorded Time 96152 Product containin g penicilli n (product) medicatio n facial swelling itching Not available Not available Not available 04/29/2019 79280 8001 SNOMED Missy trimble [place] [facility] 9 13:15:37 77670 Cipro medicatio n facial swelling itching Not available Not available Not available 04/29/201976873 3 RxNorm Missy trimble [place] [facility] 9 13:15:56 92784 Substance with sulfonami de structure and antibacte rial mechanism of action (substanc e) medicatio n facial swelling severe Not available 02/15/2021 68370 8003 SNOMED Tamiko trimble [place] [facility] 1 15:09:34 39736 Keflex medicatio n facial swelling severe Not available 02/15/202119744 7 RxNorm Tamiko Robbinsrochelle trimble [place] [facility] 15:09:55 02317 Non-stero idal anti-infl ammatory agent (product) medicatio n Not available Not available unabletoasse ss 05/28/2022 68214 005 SNOMED per renal Thenu Juice mayberry MD [address] [facility] , [address], [place], [address] [facility] [place] [facility] 2 13:18:13 53322 hydromorp omid medicatio n vomiting severe low 06/09/20232022 3423 RxNorm Dee Dee trimble [place] [facility] 3 11:42:51 45442 tramadol medicatio n vomiting severe low 06/09/20232022 03840 RxNorm Dee Dee trimble [place] [facility] 3 11:43:26 73125 meloxicam medicatio n Not available Not available Not available 01/27/2024 37659 RxNorm Koki trimble [place] [facility] 4 10:07:29 [...] TAKE 1 TABLET BY MOUTH TWICE DAILY 11/29 completed Not Available Not Available Not Available doxycycline monohydrate 100 mg tablet TAKE 1 TABLET BY MOUTH TWICE DAILY 11/29 completed Not Available Not Available Not Available [...] 1 CAPSULE BY MOUTH THREE TIMES DAILY 11/29 completed Not Available Not Available Not Available doxycycline monohydrate 100 mg capsule TAKE 1 CAPSULE BY MOUTH TWICE DAILY 11/29 completed Not Available Not Available Not Available [...] Available Not Available Not Available Fluzone High-Dose 8868-4782 (PF) 180 mcg/0.5 mL intramuscul ar syringe ADM 0.5ML IM UTD 04/29 completed Not Available Not Available Not Available Fluad 2018- 65yr up(PF)45 mcg(15 mcgx3)/0.5 mL intramuscul ar syringe ADM 0.5ML IM UTD 05/18 completed Not Available Not Available Not Available Fluzone High-Dose Quad 2019- (PF) 240 mcg/0.7 mL IM syringe ADM 0.7ML IM UTD 09/20 completed Not Available Not Available Not Available Vitals Date Recorded Body height Heart rate Oxygen saturation Oxygen saturation in Arterial blood by Pulse oximetry Pain severity - 0-10 verbal numeric rating [Score] - Reported Systolic blood pressure Diastolic blood pressure Provider Name and Address Organization Details Last Updated DateTime 4 154.94 cm 60 /min 98 % 98 % 9 206 mm[Hg] 84 mm[Hg] Koki Hollins [facility] 4 14:39:48 Date Recorded Body height Heart rate Oxygen saturation Oxygen saturation in Arterial blood by Pulse oximetry Systolic blood pressure Diastolic blood pressure Provider Name and Address Organization Details Last Updated DateTime 4 154.94 cm 61 /min 99 % 99 % 175 mm[Hg] 72 mm[Hg] Joyce Barney [place] [facility] 4 11:00:27 Date Recorded Body height Oxygen saturation Oxygen saturation in Arterial blood by Pulse oximetry Heart rate Pain severity - 0-10 verbal numeric rating [Score] - Reported Systolic blood pressure Diastolic blood pressure Provider Name and Address Organization Details Last Updated DateTime 4 154.94 cm 97 % 97 % 59 /min 10 211 mm[Hg] 76 mm[Hg] Koki Hollins [place] [facility] 4 10:21:03 Date Recorded Body height Heart rate Oxygen saturation Oxygen saturation in Arterial blood by Pulse oximetry Pain severity - 0-10 verbal numeric rating [Score] - Reported Systolic blood pressure Diastolic blood pressure Provider Name and Address Organization Details Last Updated DateTime 4 154.94 cm 61 /min 99 % 99 % 10 181 mm[Hg] 82 mm[Hg] Koki Hollins [place] [facility] 4 10:06:03 Date Recorded Body height Heart rate Oxygen saturation Oxygen saturation in Arterial blood by Pulse oximetry Systolic blood pressure Diastolic blood pressure Provider Name and Address Organization Details Last Updated DateTime 5 154.94 cm 51 /min 99 % 99 % 175 mm[Hg] 58 mm[Hg] Joyce Barney [place] [facility] 5 09:02:02 Social History Question Answer Notes LastModified by Organizat ion Details LastModified Time Tobacco Smoking Status Former Smoker Quit x 50 Not Available [facility] 07/07/2020 03:16:09 What Is Your Level Of Alcohol Consumption? Occasional [id number] Information not available 07/07/2020 Are You Currently Employed? Yes [id number] Information not available 07/07/2020 Which Illicit Or Recreational Drugs Have You Used? 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 Alone Information not available 04/29/2019 Marital Status Informatio n not available 04/29/2019 How Many Years Have You Smoked Tobacco? 3 [id number] Information not available 07/07/2020 Sex: Unknown Functional Status None recorded. Mental Status None recorded. Family History Relationship Description Onset Age of this Age Resolved Age Notes LastModified by Organization Details LastModified Time Mother Alzheimer's disease Not available 2018 13:21:48 Mother Family history of Thyroid disorder [email or web address] Not available 2018 13:22:35 Maternal Grandmother Alzheimer's [...] SNOMED-CT Code Diagnosis ICD10 Code Diagnosis Note [id number] Omar Coulter MD PAIN OFFICE [address] [place] [address] 04/29/2019 13:08:47 04/29/2019 15:48:56 Muscle pain 99627453 M79.10 Degenerati on of cervical intervertebral disc 61106921 M50.30 Cervical s pondylosis without myelopathy 388362009 M47.812 Degenerati on of thoracic intervertebral disc 45675063 M51.34 09137 Omar Coulter MD PAIN OFFICE [email or web address] [place] [address] 05/18/2019 13:05:28 05/19/2019 09:47:26 Muscle pain 77233696 M79.10 Degenerati on of cervical intervertebral disc 84119465 M50.30 Cervical s pondylosis without myelopathy 067321894 M47.812 Degenerati on of thoracic intervertebral disc 99888916 M51.34 54158 Omar Coulter MD PAIN OFFICE [address] [place] [address] 06/07/2019 12:59:28 06/07/2019 15:14:41 Muscle pain 38142521 M79.10 Degenerati on of cervical intervertebral disc 14876744 M50.30 Cervical s pondylosis without myelopathy 815575029 M47.812 Degenerati on of thoracic intervertebral disc 04737989 M51.34 57287 Omar Coulter MD [facility] [address] [facility] [place] [address] 06/23/2019 15:13:29 07/05/2019 11:29:45 Muscle pain 15864252 M79.10 Degenerati on of cervical intervertebral disc 97333526 M50.30 Cervical s pondylosis without myelopathy 587069836 M47.812 Degenerati on of thoracic intervertebral disc 92826693 M51.34 96938 Omar Coulter MD PAIN OFFICE [address] [facility] [place] [address] 10/25/2019 14:17:47 10/25/2019 14:54:29 Muscle pain 13396953 M79.10 Degenerati on of cervical intervertebral disc 61481470 M50.30 Cervical s pondylosis without myelopathy 205538921 M47.812 Degenerati on of thoracic intervertebral disc 48060653 M51.34 14637 Omar Coulter MD PAIN OFFICE [address] [facility] [place] [address] 11/15/2019 14:20:57 11/19/2019 09:46:43 Muscle pain 46480834 M79.18 Degenerati on of cervical intervertebral disc 27089696 M50.30 Cervical s pondylosis without myelopathy 497306425 M47.812 Degenerati on of thoracic intervertebral disc 27781393 M51.34 57787 Omar Coulter MD PAIN OFFICE [address] [place] [address] 01/25/2020 10:30:04 02/10/2020 10:22:36 Muscle pain 50217843 M79.10 Degenerati on of cervical intervertebral disc 75854167 M50.30 Cervical s pondylosis without myelopathy 293078461 M47.812 Degenerati on of thoracic intervertebral disc 48597384 M51.34 31934 Omar Coulter MD PAIN OFFICE [address] [place] [address] 02/10/2020 13:00:54 02/10/2020 13:45:55 Muscle pain 49718901 M79.18 Degenerati on of cervical intervertebral disc 58173649 M50.30 Cervical s pondylosis without myelopathy 019697625 M47.812 Degenerati on of thoracic intervertebral disc 77290857 M51.34 44901 Omar Coulter MD PAIN OFFICE [email or web address] [facility] [place] [address] 05/18/2020 13:32:35 05/18/2020 15:44:35 Muscle pain 76664416 M79.10 Degenerati on of cervical intervertebral disc 54186591 M50.30 Cervical s pondylosis without myelopathy 001140892 M47.812 Degenerati on of thoracic intervertebral disc 08485123 M51.34 16805 Omar Coulter MD PAIN OFFICE [email or web address] [place] [address] [place] [address] 06/28/2020 12:49:27 06/28/2020 15:28:04 Muscle pain 53925282 M79.18 Degenerati on of cervical intervertebral disc 40730542 M50.30 Cervical s pondylosis without myelopathy 891766459 M47.812 Degenerati on of thoracic intervertebral disc 75183556 M51.34 68604 Omar Coulter MD PAIN OFFICE [email or web address] [facility] [place] [address] 09/20/2020 08:42:02 09/20/2020 11:18:24 Thoracic radiculopathy 35732139 M54.14 Muscle pain 64535926 M79 .10 Degenerati on of cervical intervertebral disc 94873526 M50.30 Cervical s pondylosis without myelopathy 657529904 M47.812 Degenerati on of thoracic intervertebral disc 00899573 M51.34 35407 Omar Coulter MD PAIN OFFICE [email or web address] [facility] [place] [address] 09/27/2020 10:02:38 09/27/2020 13:59:25 Thoracic radiculopathy 98790159 M54.14 Muscle pain 42184626 M79 .10 Degenerati on of cervical intervertebral disc 58286301 M50.30 Cervical s pondylosis without myelopathy 102179388 M47.812 Degenerati on of thoracic intervertebral disc 89416275 M51.34 16132 Omar Coulter MD PAIN OFFICE [address] [place] [address] 10/26/2020 15:31:42 10/26/2020 15:51:53 Thoracic radiculopathy 95891157 M54.14 Muscle pain 88814853 M79 .10 Degenerati on of cervical intervertebral disc 93596974 M50.30 Cervical s pondylosis without myelopathy 014811136 M47.812 Degenerati on of thoracic intervertebral disc 70141170 M51.34 39949 Omar Coulter MD PAIN OFFICE [address] [place] [address] 02/05/2021 10:22:28 02/05/2021 15:56:53 Osteoarthritis of knee 440894224 M17.9 62704 Omar Coulter MD PAIN OFFICE [address] [address] 02/15/2021 14:59:34 02/15/2021 16:22:18 Osteoarthritis of knee 744738444 M17.0 41175 Omar Coulter MD [facility] [address] [address] 02/21/2021 14:42:44 02/22/2021 14:39:41 Osteoarthritis of knee 863327566 M17.0 71568 Omar Coulter MD [facility] [address] [address] 06/08/2021 08:59:50 06/15/2021 10:30:41 Osteoarthritis of hip 498597185 M16.9 Arthropath y of lumbar facet joint 083520765 M46.96 41646 Omar Coulter MD PAIN OFFICE [address] [address] 09/18/2021 09:27:54 09/19/2021 12:22:33 Osteoarthritis of hip 759876813 M16.9 Arthropath y of lumbar facet joint 293640292 M46.96 Lumbosacra l radiculopathy 1954139 M54.17 51892 Omar Coulter MD [facility] [address] [place] [address] 10/18/2021 11:30:20 10/18/2021 11:59:09 Osteoarthritis of hip 239621653 M16.9 Arthropath y of lumbar facet joint 009767402 M46.96 Lumbosacra l radiculopathy 3784493 M54.17 65710 Omar Coulter MD [facility] [address] [place] [address] 01/01/2022 12:59:18 01/01/2022 14:31:36 Osteoarthritis of hip 507390453 M16.9 Arthropath y of lumbar facet joint 614959682 M46.96 Lumbosacra l radiculopathy 3911469 M54.17 35999 Omar Coulter MD [facility] [address] [place] [address] 05/28/2022 13:05:44 05/29/2022 14:25:07 Osteoarthritis of hip 190496601 M16.9 Arthropath y of lumbar facet joint 085600036 M46.96 Lumbosacra l radiculopathy 8368219 M54.17 63460 Omar Coulter MD [facility] [address] [place] [address] 04/22/2023 11:14:39 04/22/2023 14:42:39 Osteoarthritis of hip 468032716 M16.9 Arthropath y of lumbar facet joint 436452184 M46.96 Lumbosacra l radiculopathy 4779984 M54.17 17228 Omar Coulter MD [facility] [address] [place] [address] 06/09/2023 11:18:38 06/09/2023 11:58:43 Osteoarthritis of hip 055502950 M16.9 Arthropath y of lumbar facet joint 014102636 M46.96 Lumbosacra l radiculopathy 5972343 M54.17 73863 Omar Coulter MD [facility] [address] [place] [address] 10/28/2023 09:54:59 10/28/2023 14:24:20 Lumbosacral radiculopathy 9013335 M54.17 Degenerati on of lumbar intervertebral disc 88769700 M51.36 47498 Omar Coulter MD [facility] [address] [place] [address] 01/27/2024 09:58:44 01/27/2024 10:59:54 Lumbosacral radiculopathy 8679843 M54.17 Degenerati on of lumbar intervertebral disc 15459285 M51.36 53031 Omar Coulter MD [facility] [address] [facility] [place] [address] 05/26/2024 14:28:52 05/26/2024 15:33:11 Lumbosacral spondylosis without myelopathy 90668295 M47.817 97282 Omar Coulter MD [facility] [address] [facility] [place] [address] 06/01/2024 10:50:13 06/01/2024 16:05:47 Lumbosacral spondylosis without myelopathy 78413765 M47.817 68315 Omar Coulter MD [facility] [address] [facility] [place] [address] 06/23/2024 10:08:25 06/24/2024 08:51:47 Lumbosacral radiculopathy 5560061 M54.17 Degenerati on of lumbar intervertebral disc 50728835 M51.362 79547 Omar Coulter MD [facility] [address] [address] 08/16/2024 09:50:57 08/23/2024 11:42:01 Lumbosacral radiculopathy 5321172 M54.17 Neuropathy due to diabetes mellitus 118110098 E11.40 Osteoarthritis of hip 23 8859151 M16.9 Arthropath y of lumbar facet joint 264022479 M46.96 47632 Omar Coulter MD [facility] [address] [place] [address] 12/07/2024 08:57:10 12/07/2024 16:05:22 Lumbosacral radiculopathy 1343536 M54.17 Degenerati on of lumbar intervertebral disc 20313886 M51.362 Health Concerns Section Related Observation LastModified by Organization Detai ls LastModified Time None Recorded Concern Status LastModified by Organization Details LastModified Time None Recorded Advance Directives Directive None Recorded Payers Encounter Date Sequence Insurance Name Policy Number Policy Jones Covered Member ID Jones Member ID Guarantor Name 05/26/2024 2 [employer] (MEDICARE SUPPLEMENT) Kayleen Adrianoit [id number] Kayleen Viramontest 05/26/2024 1 [place] [employer] Kayleen Zulma Balfour [id number] 4 Kayleen Adrianoit 06/01/2024 2 [employer] (MEDICARE SUPPLEMENT) Kayleen Adrianoit [id number] Kayleen Adrianoit 06/01/2024 1 [place] [employer] Kayleen Zulma Balfour [id number] 4 Kayleen Adrianoit 06/23/2024 2 [employer] (MEDICARE SUPPLEMENT) Kayleen Adrianoit [id number] Kayleen Adrianoit 06/23/2024 1 [place] [employer] Kayleen Zulma Steve [id number] 4 Kayleen Steve 08/16/2024 2 [employer] (MEDICARE SUPPLEMENT) Kayleen Steve [id number] Kayleen Steve 08/16/2024 1 [place] [employer] Kayleen Zulma Steve [id number] 4 Kayleen Adrianoit 12/07/2024 2 [employer] (MEDICARE SUPPLEMENT) Kayleen Wilson [id number] Kayleen Adrianoit 12/07/2024 1 [place] [employer] Kayleen Wilson [id number] 4 Kayleen Wilson Notes Date Note Type Note Provider Name and Address Organization Details Recorded Time 05/26/2024 text/html Kayleen is here fo r a follow up. She is complaining of left sided low back pain. She is having a hard time standing and walking due to pain. She states a friend of hers had a radiofrequency ablation and is doing well and wants to know if she is a candidate. She is going on a trip to [facility] and then to [place] next year and wants to be able to walk. 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 She states she has been depressed and does not go out due to pain. She has no radiating pain presently and has no history of bladder or bowel incontinence. Omar Coulter MD [address] , [address], [place], [address], [place] - Pain [place] 05/26/2024 15:45:10 06/01/2024 text/html She is here for a left lumbar facet joint injection under fluoroscopic guidance Omar Coulter MD [address] , [address], [place], [address], [place] - [place] 06/01/2024 16:09:36 06/23/2024 text/html She is here for a lumbar epidural steroid injection under fluoroscopic guidance. Omar Coulter MD [address] , [address], [place], [address], [facility] - Pain Management 06/24/2024 08:54:02 08/16/2024 text/html [...] done next year. She has been to [facility] and states she had a good trip. She is having severe pain in her right mid back .The facet joint injection did not help. She has not trialed lidocaine patches. She has seen her PCP for the pain. Oamr Coulter MD [address] , [address], [place], [address], [facility] Pain Management 08/23/2024 11:42:41 12/07/2024 text/html She is here for a lumbar epidural steroid injection under fluoroscopic guidance. Omar Coulter MD [address] , [address], [place], [address], [facility] Pain Management 12/07/2024 16:08:18 OBGyn Episode No OBEpisode recorded.
--- OUTSIDE RECORDS SUMMARY | 2024-12-14 12:09 | XMS_ITS | Clinical Summary ---
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 Name Role Phone John Herrera MD Primary [...] Type Department Care Team Description 10/19/2024 Telephone [facility] Department of Internal Medicine [place] [address] [place] [id number] John Herrera MD from Last 3 Months Social History Tobacco [...] Description 03/18/2025 10:20 AM EDT Office Visit [facility] of Internal Medicine & Nephrology [place] [address] [place] [id number] Karson Law MD [address] [place], [place] [id number] Health Maintenance Due Date Last Done Comments [...] EST 08/10/2024 Narrative [facility]) - 08/11/2024 6:10 AM EST Performed at: ??01 - [facility] [address] ??[id number] Differential Specialist: Suzi Stern MD, Phone: ??[phone] Karson Law MD LAB BLOOD ORDERAB LES [facility]) [facility] 1 * (ABNORMAL) BASIC [...] - 08/11/2024 7:07 AM EST Performed at: ?? - [facility] [address] ??[id number] Differential Specialist: Suzi Stern MD, Phone: ??[phone] Karson Law MD LAB BLOOD ORDERAB LES [facility] (YUE) [facility] 1 from Last 3 Months or Most Recently Relevant to Health Maintenance Care Teams Landscape Gardener Relationship Specialty Start Date End Date John Herrera MD [address] [place] [address] PCP - General Family Medicine 02/03/24
--- OUTSIDE RECORDS SUMMARY | 2024-12-14 12:09 | XMS_ITS | Patient Health Record ---
Author Organization [facility] Address [address] [place] [address] Care Team Providers Care Bottle Caser Name Role Phone CHANDU HERRERA Primary Care Provider Taiwo Azar [phone] Allergies Allergen (clinical drug ingredient) Drug/Non Drug Allergy [...] (substance) Sulfa Antibiotics Unknown Drug Allergy Active Results Component Value Reference Range Notes Giardia Ag Stool EIA Reviewed date:03/15/2024 10:33:39 PM Interpretation: Performing Lab:[address] [address] Notes/Report: Giardia Ag Stool EIA SEE NOTE GIARDIA AG, EIA, STOOL Micro Number: [id number] Test Status: Final Specimen Source: Stool Specimen Quality: Adequate Giardia Result 1: Not Detected Reference Range: Not Detected NOTE: Due to intermittent shedding, one negative sample does not necessarily rule out the presence of a parasitic infection. THIS TEST WAS PERFORMED AT: [facility] [address] [place] [phone] DESTINY AUGUSTE MD Calprotectin, Fecal Reviewed date:03/06/2024 01:39:27 PM Interpretation: Performing Lab:[address] [address] Notes/Report: Calprotectin, Fecal 12 Reference Range: <50 [...] borderline values. THIS TEST WAS PERFORMED AT: [facility] [address] [place] [address] TERRELL YU MD,PHD,TRIXIE Ova and Parasite Reviewed date:03/15/2024 10:37:24 PM Interpretation: Performing Lab:[address] [address] Notes/Report: Ova and Parasite SEE NOTE OVA AND PARASITES, CONC AND PERM SMEAR Micro Number: [id number] Test Status: Final Specimen Source: Specimen Quality: [...] infection. For additional information, please refer to https://education.[employer].MetaIntell/faq/F AQ203 (This link is being provided for informational/ educational purposes only.) THIS TEST WAS PERFORMED AT: [facility] [address] MORA LONDON MD GI PANEL Reviewed date:02/28/2024 01:39:07 PM Interpretation: Performing Lab:[address] [address] Notes/Report: Campylobacter Not Detected Not Detect. Plesiomonas [...] is performed by Multiplexed PCR, utilizing the [employer] Array. Complete Blood Count Auto Di ff Reviewed date:02/26/2024 11:50:55 PM Interpretation: Performing Lab:[facility], [address] [place] [phone] Notes/Report: White Blood Count 5.6 4.8-10.8 X10*3/uL [...] 0.0-0.2 /100WBC Neutrophils Absolute Auto 3.4 2.0-8.3 x10*3/uL Imm Gran Abs Auto 0.03 0.00-0.03 X10*3/uL Lymphocytes Absolute Auto 1.3 1.2-4.9 X10*3/uL Monocytes Absolute Auto 0.6 0.1-1.2 X10*3/uL Eosinophils Absolute Auto 0.2 0.0-0.4 X10*3/uL Basophils Absolute Auto 0.0 0.0-0.2 X10*3/uL NRBC Abs Auto 0.000 0.0-0.012 X10*3/uL Erythrocyte Sedimentation Ra te Reviewed date:02/26/2024 11:55:54 PM Interpretation: Performing Lab:[facility], [address] [place] [phone] Notes/Report: Erythrocyte Sedimentation Rate 26 0-20 MM/HR Patients with polycythemia and many hemoglobin abnormalities may have depressed sed rates whereas patients with anemia may have elevated sed rates. Liver Panel Reviewed date:02/26/2024 11:51:08 PM Interpretation: Performing Lab:[facility], [address] [place] [phone] Notes/Report: Bilirubin Total 0.7 0.0-1.0 mg/dL Bilirubin Direct 0.2 0.0-0.5 mg/dL Aspartate Amino Transferase 14 5-31 U/L Alanine Aminotransferase 10 0-31 U/L Total Protein 6.5 6.5-8.0 g/dL Albumin Level 3.9 3.5-5.0 g/dL Alkaline Phosphatase 77 39-117 U/L Basic Metabolic Panel Reviewed date:02/28/2024 01:38:31 PM Interpretation: Performing Lab:[address] [address] Notes/Report: Sodium 143 135-145 mmol/L Potassium 3.2 3.3-5.1 mmol/L Chloride 112 96-108 mmol/L Carbon Dioxide 24 22-29 mmol/L Anion Gap 10 12-20 Blood Urea Nitrogen 22 9-16 mg/dL Creatinine 0.94 0.5-1.4 mg/dL Estimated Glomerular Filt Rate 58 NOTE: For -Albanian individuals, multiply the result by 1.210. Chronic Kidney Disease: Estimated GFR < 60 mL/min/1.73m2 Severe Kidney Disease: Estimated GFR < 15 mL/min/1.73m2 Glucose Random 121 60-115 mg/dL Calcium 9.7 8.4-10.2 mg/dL C Reactive Protein Reviewed date:02/26/2024 11:53:14 PM Interpretation: Performing Lab:[facility], [address] [place] [phone] Notes/Report: C Reactive Protein 0.13 < or = 0.50 mg/dL Immunoglobulin A Reviewed date:03/01/2024 11:35:45 PM Interpretation: Performing Lab:[facility], [address] [place] [phone] Notes/Report: Immunoglobulin A 247 70-320 mg/dL THIS TEST WAS PERFORMED AT: [facility] [address] [place] [phone] DESTINY AUGUSTE MD Transglutaminase Ab IgG Reviewed date:03/01/2024 11:34:46 PM Interpretation: Performing Lab:[facility], [address] [place] [phone] Notes/Report: Transglutaminase Ab IgG <1.0 Value Interpretation ----- <15.0 Antibody not detected > or = 15.0 Antibody detected THIS TEST WAS PERFORMED AT: [facility] [address] [place] [phone] DESTINY AUGUSTE MD Transglutaminase IgA Reviewed date:03/01/2024 11:34:36 PM Interpretation: Performing Lab:[facility], [address] [place] [phone] Notes/Report: Transglutaminase IgA <1.0 Value Interpretation ----- <15.0 Antibody not detected > or = 15.0 Antibody detected THIS TEST WAS PERFORMED AT: [facility] [address] [place] [phone] DESTINY AUGUSTE MD Gliadin Ab Panel Reviewed date:03/01/2024 11:34:29 PM Interpretation: Performing Lab:[facility], [address] [place] [phone] Notes/Report: Gliadin Deamidated IgA Ab <1.0 Value Interpretation ----- <15.0 Antibody not detected > or = 15.0 Antibody detected Gliadin Deamidated IgG Ab <1.0 Value Interpretation ----- <15.0 Antibody not detected > or = 15.0 Antibody detected THIS TEST WAS PERFORMED AT: [facility] [address] [place] [phone] DESTINY AUGUSTE MD Endomysial IgA rflx Titer Reviewed date:03/01/2024 11:34:22 PM Interpretation: Performing Lab:[facility], [address] [place] [phone] Notes/Report: Endomysial IgA Antibody Negative Negative THIS TEST WAS PERFORMED AT: [facility] [address] DARRELL WESTBROOK MD,PHD Endomysial Titer TNP CDiff Gene PCR Reviewed date:02/28/2024 01:04:04 PM Interpretation: Performing Lab:[facility], [address] [place] [phone] Notes/Report: CDiff Gene PCR NEGATIVE Negative If C. difficile strongly suspected despite one negative test, a second test may be sent vs. empiric treatment for C. difficile infection. Prothrombin Time INR Reviewed date:03/27/2024 09:51:04 PM Interpretation: Performing Lab:[facility], [address] [place] [phone] Notes/Report: Prothrombin Time 11.0 11.1-13.3 [employer] [...] Electrolytes Reviewed date:03/27/2024 09:50:56 PM Interpretation: Performing Lab:[facility], [address] [place] [phone] Notes/Report: Sodium 139 135-145 mmol/L Potassium 3.7 3.3-5.1 mmol/L Chloride 109 96-108 mmol/L Carbon Dioxide 20 22-29 mmol/L Anion Gap 14 12-20 Glucose, Whole Blood Reviewed date:03/27/2024 09:50:45 PM Interpretation: Performing Lab:[facility], [address] [place] [phone] Notes/Report: Glucose, Whole Blood 85 60-115 mg/dL METER # : [id number] Pathology Reviewed date:08/10/2024 10:51:18 AM Interpretation: Performing Lab:[facility], [address] [place] [phone] Notes/Report: -- ---- Name: Nancy Wilson Age/Sex: 78/F : 1945 Unit#: [id number] Attend Dr: Taiwo Mcintosh MD Re03/26/24 Status : [facility] Location: [facility] Disch: -- ---- SPEC : [id number] RECD : 03/26/24 STATUS: ELVI CHAVEZ NUM: [id number] [place]: 03/26/24-[address] [facility] [address]: Taiwo Mcintosh MD ENTERED: 03/26/24 27 SP TYPE: Surgical OTHR DR: Chandu Herrera [facility] ORDERED: HE Stain/12 , Gross Micro L4/4, IHC, Special st. 2/2, H. pylori, AB/PAS/2 Addendum Addendum 1 Entered: 03/30/24 Immunostain for H pylori is nonreactive (B); no change is made to the diagnosis. Addendum Signed (signature on file) Stefan Mcpherson MD 03/30/24 1050 -- ---- Diagnosis A. Duodenum, descending, biopsy: Chronic/non-specific duodenitis with minimal active inflammation and predominantly preserved villi eyes; no evidence of celiac disease. B. Gastric antrum, biopsy: Gastric antral mucosa with focal minimal chronic inactive inflammation; negati ve for intestinal metaplasia and dysplasia (see comment). C. Colon, ascending, biopsy: Colonic mucosa with no specific change; no evidence of microscopic colitis. D. Colon, descending , biopsy: Colonic mucosa with lymphoid aggregate and no specific change; no evidence of microscopic colitis. Comment: (B): H pylori stain pending; addendum to follow. Clinical History Pre-Op Dx: Abnormal weight loss Post-Op Dx: Gastriti s, hiatal hernia, diverticulosis and hemorrhoids Microscopic Description Microscopic sections reviewed. AB/PAS on A shows evidence of chronic injury. AB/PAS on B is negative for intestinal metaplasia. Control stains appropriately. CONTINUED ON NEXT PAGE -- ---- Name: Nancy Wilson Age/Sex: 78/F : 1945 Unit#: [id number] Attend Dr: Taiwo Mcintosh MD Re03/26/24 Status : [facility] Location: [facility] Disch: -- ---- SPEC : [id number] RECD : 03/26/24-1316 STATUS: IVANShruthi SCOTT NUM: [id number] [place]: 03/26/24-[address] [facility] [address]: Taiwo Mcintosh MD ENTERED: 03/26/24- 27 SP TYPE: Surgical OTHR DR: Chandu Herrera [facility] ORDERED: HE Stain/12 , Gross Micro L4/4, IHC, Special st. 2/2, H. pylori, AB/PAS/2 Material Received A. Descending duoden um bx's, r/o celiac B. Gastric antrum bx's C. Ascending colon bx's, r/o microscopic colitis D. Descending colon bx's, r/o microscopic colitis Gross Description A. Received in formalin are 5 ratliff 2-5 mm soft tissue fragments, totally submitted in cassette A1. B. Received in formalin are 3 ratliff 3-6 mm soft tissue fragments, totally submitted in cassette B1. C. Received in formalin are 4 ratliff to-3 mm soft tissue fragments, totally submitted in cassette C1. D. Received in formalin are 3 ratliff 2-5 mm soft tissue fragments, totally submitted in cassette D1. (DTL) Excision time/formal in time: 11:39 on 03/26/2024; cold ischemic time: 0 minutes; total time in formalin: 65-70 hours. Special studies ordered and performed: Immunostain for H. pylori on B1; AB/PAS stains on A1 and B1. Copies To: Chandu Herrera [facility] Primary Care, [id number] [place], [place] [phone] Taiwo Mcintosh MD [facility] [address] [place] [address] [address] [place], [place] [phone] -- ---- Signed (signature on file) Mary Ann Hughes 03/29/24 1500 (signature on file) Stefan Mcpherson MD 03/30/24 1050 -- ---- END OF REPORT Reason For Referral No Information Medications Medication SIG (Take, Route, Frequency, Duration) Notes Start Date End Date Status Omeprazole 20 MG TAKE 1 CAPSULE BY [facility] EVERY MORNING for 30 Active Imodium A-D [...] Twice a day for 30 day(s) Active Immunizations Vaccine Route Administration Date Status Comme nts Influenza Unknown 05/20/2019 Administered Influenza Unknown 07/15/2023 Administered Social History Tobacco Use: Social History Observation Description Date Details (start date - stop date) Former Smoker NA - NA Tobacco Use/Smoking Question Answer Notes Patient is [...] Never (0 point) Points 2 Interpretation Negative Section Notes: Nonsmoker; no sig alcohol Nonsmoker; no sig alcohol Nonsmoker; no sig alcohol Problems Problem Type SNOMED Code ICD Code Onset Dates Problem Status W/U Status Risk Notes Problem 550302510 Encounter for screening for malignant neoplasm of colon (Z12.11) Active confirmed Problem Diarrhea (68489287) Diarrhea (R19.7) Active con firmed Problem Weight loss (274927136) Weight loss (R63.4) Active confirmed Problem Diverticular disease of colon (160212527) Diverticulosis of large intestine without perforation or abscess without bleeding (K57.30) Active confirmed Problem Nausea (949057579) Nausea (R11.0) Active confir med Problem 212544079442252 Preprocedural examination (Z01.818) Active confirmed Problem 31937398 Hypertension, unspecified type (I10) Active confirmed Problem 893271753 Encntr long-term NSAID use (Z79.1) Active confirmed Problem Gastroesophageal reflux disease (disorder) (227898184) Chronic GERD (K21.9) Active confirmed Vital Signs Temperature 96.9 degrees Fahrenheit 02/25/2024 Blood pressure diastolic 00 mm Hg 08/10/2024 Height 61 in 08/10/2024 Blood pressure systolic 00 mm Hg 08/10/2024 Weight 174 lbs 08/10/2024 BMI 32.87 kg/m2 08/10/2024 Encounters Encounter Location Date Provider Diagnosis [facility] [address] [place] [id number] 03/26/2024 Taiwo Mcintosh Diarrhea R19.7 ; Dallin ght loss R63.4 ; Diverticulosis of large intestine without perforation or abscess without bleeding K57.30 ; Other hemorrhoids K64.8 ; Nausea R11.0 and Hiatal hernia K44.9 [facility] [address] [place] [phone] 02/25/2024 Taiwo Mcintosh Nausea R11.0 ; Diarr hea R19.7 and Weight loss R63.4 [facility] [address] [place] [phone] 08/10/2024 Taiwo Mcintosh Diarrhea R19.7 ; Yonis sea R11.0 and Chronic GERD K21.9 [facility] [address] [place] [phone] 02/26/2024 Taiwo Mcintosh [facility] [address] [phone] 03/29/2024 Taiwo Mcintosh Assessments Encounter Date Diagnosis (ICD Code) Assessment Notes Treatment Notes Treatment Clinical Notes Section Notes 03/26/2024 Diarrhea (ICD-10 - R19.7) 03/26/2024 Weight loss (ICD-10 - R63.4) 02/25/2024 Diarrhea (ICD-10 - R19.7) Use 1 or 2 over the counter Imodium pills every 6 hours as needed for the diarrhea. Given Nancy's ongoing upper and lower GI symptoms with associated weight loss of unclear etiology, I did recommend she undergo an upper endoscopy and colonoscopy for further evaluation. We reviewed that it would be important to rule out possibilities such as celiac disease, inflammatory bowel disease, microscopic colitis, significant reflux, and/or peptic ulcer disease. Full consent was obtained from her for both procedures, including risks of bleeding and perforation. The procedures will be done with monitored anesthesia care. She was given the below instructions regarding adjustment of her medications for the procedure. In the meantime, I shall check some followup laboratories, including laboratories for celiac disease. I shall also check some repeat stool specimens including C. difficile, another GI panel to exclude other bacterial infections, and a stool specimen for calprotectin to indirectly evaluate for any underlying inflammatory bowel disease. I shall start her on some symptomatic treatment to see if we can help alleviate some of her ongoing GI issues. I shall start her on some daily omeprazole and p.r.n. Zofran for the upper GI complaints. I shall also start her on some Imodium to use on a p.r.n. basis for her diarrhea. I did advise her to contact me prior to the procedures if she has any further problems or questions I can be of further assistance with. Nancy was comfortable with this plan. Thank you again for allowing me to participate in Nancy's care. I shall continue to keep you advised of her progress. 02/25/2024 Nausea (ICD-10 - R11.0) Do not take the Januvia for 2 days before the procedures Take only 1/2 your usual Insulin the night before Given Nancy's ongoing upper and lower GI symptoms with associated weight loss of unclear etiology, I did recommend she undergo an upper endoscopy and colonoscopy for further evaluation. We reviewed that it would be important to rule out possibilities such as celiac disease, inflammatory bowel disease, microscopic colitis, significant reflux, and/or peptic ulcer disease. Full consent was obtained from her for both procedures, including risks of bleeding and perforation. The procedures will be done with monitored anesthesia care. She was given the below instructions regarding adjustment of her medications for the procedure. In the meantime, I shall check some followup laboratories, including laboratories for celiac disease. I shall also check some repeat stool specimens including C. difficile, another GI panel to exclude other bacterial infections, and a stool specimen for calprotectin to indirectly evaluate for any underlying inflammatory bowel disease. I shall start her on some symptomatic treatment to see if we can help alleviate some of her ongoing GI issues. I shall start her on some daily omeprazole and p.r.n. Zofran for the upper GI complaints. I shall also start her on some Imodium to use on a p.r.n. basis for her diarrhea. I did advise her to contact me prior to the procedures if she has any further problems or questions I can be of further assistance with. Nancy was comfortable with this plan. Thank you again for allowing me to participate in Gilberts care. I shall continue to keep you advised of her progress. 08/10/2024 Diarrhea (ICD-10 - R19.7) Overall, Nancy appears well from a GI standpoint. We did review her GI procedures from over the summer and I advised her that given the negative colonoscopy and her age of 79, she would not need any further screening colonoscopies. At this point she seems to be doing much better from a symptomatic standpoint in regard to her reflux and diarrhea. As such, I did advise her to continue her daily omeprazole with her p.r.n. Zofran and Imodium for the nausea and diarrhea, respectively. I don't think she needs any further workup from a GI standpoint at this time. I did advise her that she should certainly call me if she develops any relapse in her GI symptoms. Nancy was comfortable with this plan. Thank you again for allowing me to have participated in Nancy's care. Please do not hesitate to contact me if I can be of any further assistance in the future. 08/10/2024 Nausea (ICD-10 - R11.0) Overall, Nancy appears well from a GI standpoint. We did review her GI procedures from over the summer and I advised her that given the negative colonoscopy and her age of 79, she would not need any further screening colonoscopies. At this point she seems to be doing much better from a symptomatic standpoint in regard to her reflux and diarrhea. As such, I did advise her to continue her daily omeprazole with her p.r.n. Zofran and Imodium for the nausea and diarrhea, respectively. I don't think she needs any further workup from a GI standpoint at this time. I did advise her that she should certainly call me if she develops any relapse in her GI symptoms. Nancy was comfortable with this plan. Thank you again for allowing me to have participated in Gilberts care. Please do not hesitate to contact me if I can be of any further assistance in the future. 03/26/2024 Diverticulosis of large intestine without perforation or abscess without bleeding (ICD-10 - K57.30) 02/25/2024 Weight loss (ICD-10 - R63.4) Given Nancy's ongoing upper and lower GI symptoms with associated weight loss of unclear etiology, I did recommend she undergo an upper endoscopy and colonoscopy for further evaluation. We reviewed that it would be important to rule out possibilities such as celiac disease, inflammatory bowel disease, microscopic colitis, significant reflux, and/or peptic ulcer disease. Full consent was obtained from her for both procedures, including risks of bleeding and perforation. The procedures will be done with monitored anesthesia care. She was given the below instructions regarding adjustment of her medications for the procedure. In the meantime, I shall check some followup laboratories, including laboratories for celiac disease. I shall also check some repeat stool specimens including C. difficile, another GI panel to exclude other bacterial infections, and a stool specimen for calprotectin to indirectly evaluate for any underlying inflammatory bowel disease. I shall start her on some symptomatic treatment to see if we can help alleviate some of her ongoing GI issues. I shall start her on some daily omeprazole and p.r.n. Zofran for the upper GI complaints. I shall also start her on some Imodium to use on a p.r.n. basis for her diarrhea. I did advise her to contact me prior to the procedures if she has any further problems or questions I can be of further assistance with. Nancy was comfortable with this plan. Thank you again for allowing me to participate in Nancy's care. I shall continue to keep you advised of her progress. 08/10/2024 Chronic GERD (ICD-10 - K21.9) Overall, Nancy appears well from a GI standpoint. We did review her GI procedures from over the summer and I advised her that given the negative colonoscopy and her age of 79, she would not need any further screening colonoscopies. At this point she seems to be doing much better from a symptomatic standpoint in regard to her reflux and diarrhea. As such, I did advise her to continue her daily omeprazole with her p.r.n. Zofran and Imodium for the nausea and diarrhea, respectively. I don't think she needs any further workup from a GI standpoint at this time. I did advise her that she should certainly call me if she develops any relapse in her GI symptoms. Nancy was comfortable with this plan. Thank you again for allowing me to have participated in Nancy's care. Please do not hesitate to contact me if I can be of any further assistance in the future. 03/26/2024 Other hemorrhoids (ICD-10 - K64.8) 03/26/2024 Nausea (ICD-10 - R11.0) 03/26/2024 Hiatal hernia (ICD-10 - K44.9) 02/25/2024 Other I will send ove r 2 prescriptions for the nausea.....one to use every morning, and the other is to use as needed for the nausea Given Nancy's ongoing upper and lower GI symptoms with associated weight loss of unclear etiology, I did recommend she undergo an upper endoscopy and colonoscopy for further evaluation. We reviewed that it would be important to rule out possibilities such as celiac disease, inflammatory bowel disease, microscopic colitis, significant reflux, and/or peptic ulcer disease. Full consent was obtained from her for both procedures, including risks of bleeding and perforation. The procedures will be done with monitored anesthesia care. She was given the below instructions regarding adjustment of her medications for the procedure. In the meantime, I shall check some followup laboratories, including laboratories for celiac disease. I shall also check some repeat stool specimens including C. difficile, another GI panel to exclude other bacterial infections, and a stool specimen for calprotectin to indirectly evaluate for any underlying inflammatory bowel disease. I shall start her on some symptomatic treatment to see if we can help alleviate some of her ongoing GI issues. I shall start her on some daily omeprazole and p.r.n. Zofran for the upper GI complaints. I shall also start her on some Imodium to use on a p.r.n. basis for her diarrhea. I did advise her to contact me prior to the procedures if she has any further problems or questions I can be of further assistance with. Nancy was comfortable with this plan. Thank you again for allowing me to participate in Nancy's care. I shall continue to keep you advised of her progress. Plan Of Treatment Pending Test Test Name Order Date CHEM [...] Date MEDICARE OF [place] [address] [place] [address] [id number] NANCY WILSON Self - patient is the insured [employer] [address] [address] [place] [address] [id number] NANCY WILSON Self - patient is the insured Medical (General) History Medical History History ICD Code Denies RI,CVA,Lung disease,renal disease IDDM Hypertension Kidney stones Negative [...]
--- OUTSIDE RECORDS SUMMARY | 2024-12-14 12:09 | XMS_ITS | Clinical Summary ---
Author Organization [facility] Address [address] [place] [phone] Phone Care Team Providers Care Liability Claims Manager Name Role Phone John Herrera NP Primary [...] [facility] Hematology Oncology [address] [place] [phone] Ceasar Colon MD [address] [place] [address] Health Maintenance Due Date Last Done Comments [...] age to complete this topic Insurance MEDICARE [facility] Care Teams Liability Claims Manager Relationship Specialty Start Date End Date John Herrera NP [address] [facility] [place] PCP - General 05/30/23
--- OUTSIDE RECORDS SUMMARY | 2024-12-14 12:09 | XMS_ITS | Continuity of Care Document ---
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 She is here for a Lumbar epidural steroid injection under fluoroscopic guidance . The risks and benefits of the procedure? ? ? were discussed in detail. She wishes to proceed. She will follow up in three months [email or web address] Not available 12/07/2024 10:17:33 Plan of Treatment Reminders Order Date Submit Date Provider Last Modified By Organization Details Last Modified Time Details Appointments PROCEDURE 2024 11:00A M Omar mayberry MD Not available Not available Not available Lab None recorded. Referral None recorded. Procedures None recorded. Surgeries None recorded. Imaging None recorded. Medication Orders None recorded. Patient TargetsNo targets recorded. Patient Instructions Encounter Date Encounter Id Patient Instructions Last Modified By Organization Details Last Modified Time 12/07/2024 [id number] She was advised against bed rest lasting longer than four days and to continue activities as tolerated. [email or web address] Not available 12/07/2024 10:18:55 Reason for Referral None Reported. Problems Name Problem SNOMED Code Status Onset Date Resolution Date Notes Provider Name and Address Organization Details Recorded Time Degeneratio n of lumbar interverteb ral disc 67713302 Completed 04/29/2019 Omar mayberry MD [address] [facility] , [address], [place], [address], [facility] Pain Management 9 15:16:59 Degeneratio n of cervical interverteb ral disc 02394923 Active Omar mayberry MD [address] , [address], [place], [address], [place] [facility] 9 15:16:55 Muscle pain 84840994 Active Omar mayberry MD [address] , [address], [place], [address], [place] [facility] 9 15:17:16 Cervical spondylosis without myelopathy 189010793 Active Omar mayberry MD [address] , [address], [place], [address], [place] [facility] 9 15:17:31 Degeneratio n of thoracic interverteb ral disc 77213849 Active Omar mayberry MD [address] , [address], [place], [address], [place] [facility] 15:17:48 Osteoarthri tis of knee 010660942 Active Omar mayberry MD [address] , [address], [place], [address], [place] [facility] 1 15:53:33 Lumbosacral radiculopat hy 5061943 Active 2023 Omar mayberry MD [address] , [address], [place], [address], [place] [facility] 4 10:50:13 Problem Notes None recorded. Procedures Surgical History Date Name Laterality Status Provider Name and Address Organization Details Recorded Time 12/08/19 25 Lumbar Epidural steroid injection under fluoroscopic guidance completed Omar Coulter MD [address] , [address], [place], [address], [place] [facility] 12/07/2024 10:18:43 06/23/20 24 Lumbar Epidural steroid injection under fluoroscopic guidance completed Omar Coulter MD [address] , [address], [place], [address], [place] [facility] 06/23/2024 10:39:49 06/01/20 24 Fluoroscopic Guided Lumbar Facet Steroid Injections of levels completed Omar Coulter MD [address] , [address], [place], [address], [place] [facility] 06/01/2024 11:29:39 01/27/20 24 Lumbar Epidural steroid injection under fluoroscopic guidance completed Omar Coulter MD [address] , [address], [place], [address], [place] [facility] 01/27/2024 10:34:03 10/28/19 24 Lumbar Epidural steroid injection under fluoroscopic guidance completed Omar Coulter MD [address] , [address], [place], [address], [place] [facility] 10/28/2023 10:49:28 04/22/20 23 Lumbar Epidural steroid injection under fluoroscopic guidance completed Omar Coulter MD [address] , [address], [place], [address], [place] [facility] 04/22/2023 11:45:19 05/28/20 22 Lumbar Epidural steroid injection under fluoroscopic guidance completed Omar Coulter MD [address] , [address], [place], [address], [place] [facility] 05/29/2022 14:22:44 01/02/20 22 Lumbar Epidural steroid injection under fluoroscopic guidance completed Omar Coulter MD [address] , [address], [place], [address], [place] [facility] 01/01/2022 14:29:09 09/18/20 21 Lumbar Epidural steroid injection under fluoroscopic guidance completed Omar Coulter MD [address] , [address], [place], [address], [place] [facility] 09/19/2021 12:19:14 02/22/20 21 Intra-articular Knee Steroid Injection completed Omar Coulter MD [address] , [address], [place], [address], [place] [facility] 02/22/2021 14:06:45 02/16/20 21 Intra-articular Knee Steroid Injection completed Omar Coulter MD [address] , [address], [place], [address], [place] [facility] 02/15/2021 16:18:43 09/27/19 21 Thoracic Epidural Steroid injection under fluroscopic guidance completed Omar Coulter MD [address] , [address], [place], [address], [place] [facility] 09/27/2020 11:32:52 06/28/20 20 Trigger Point Injections under ultrasound guidance completed Omar Coulter MD [address] , [address], [place], [address], [place] [facility] 06/28/2020 14:43:13 02/10/20 20 Trigger Point Injections under ultrasound guidance completed Omar Coulter MD [address] , [address], [place], [address], [place] [facility] 02/10/2020 13:40:00 11/15/19 20 Trigger Point Injections under ultrasound guidance completed Omar Coulter MD [address] , [address], [place], [address], [place] [facility] 11/19/2019 09:42:53 10/25/19 20 Trigger Point Injections under ultrasound guidance completed Omar Coulter MD [address] , [address], [place], [address], [place] [facility] 10/25/2019 14:53:01 06/23/20 19 Trigger Point Injections under ultrasound guidance completed Omar Coulter MD [address] , [address], [place], [address], [place] [facility] 07/05/2019 11:23:51 06/07/20 19 Trigger Point Injections under ultrasound guidance completed Omar Coulter MD [address] , [address], [place], [address], [place] [facility] 06/07/2019 15:03:55 05/18/20 19 Trigger Point Injections under ultrasound guidance completed Omar Coulter MD [address] , [address], [place], [address], [place] [facility] 05/19/2019 09:45:26 [...] knee replacement completed Omar Coulter MD [address] [facility] , [address], [place], [address], [place] [facility] 10/28/2023 10:49:05 Imaging Results None recorded. Procedure Notes None recorded. Medical Equipment None Reported. Allergies Allergen ID Allergen Name Allergen Category Reaction Reaction Severity Criticality Documentation Date Start Date Code Code System Note Provider Name and Address Organization Details Recorded Time 94518 Product containin g penicilli n (product) medicatio n facial swelling itching Not available Not available Not available 04/29/2019 90708 8001 SNOMED Missy trimble, [place] [facility] 13:15:37 79581 Cipro medicatio n facial swelling itching Not available Not available Not available 04/29/201949866 3 RxNorm Missy trimble, [place] [facility] 9 13:15:56 68072 Substance with sulfonami de structure and antibacte rial mechanism of action (substanc e) medicatio n facial swelling severe Not available 02/15/2021 56960 8003 SNOMED Tamiko trimble, [place] [facility] 15:09:34 52955 Keflex medicatio n facial swelling severe Not available 02/15/202116391 7 RxNorm Tamiko trimble, [place] [facility] 15:09:55 14045 Non-stero idal anti-infl ammatory agent (product) medicatio n Not available Not available unabletoasse 05/28/2022 78126 005 SNOMED per renal Thenu Juice mayberry MD [address] , [address], [facility] [place], [address], [place] - [facility] 2 13:18:13 68312 hydromorp omid medicatio n vomiting severe low 06/09/20232022 3423 RxNorm Dee Dee trimble, [place] - [facility] 3 11:42:51 tramadol medicatio n vomiting severe low 06/09/20232022 87375 RxNorm Dee Dee trimble, [place] - [facility] 3 11:43:26 47737 meloxicam medicatio n Not available Not available Not available 01/27/2024 65028 RxNorm Koki Saxenaalexandrea trimble, [place] - [facility] 4 10:07:29 Medications Name Sig [...] Available Not Available Not Available Fluzone High-Dose 4857-5048 (PF) 180 mcg/0.5 mL intramuscul ar syringe ADM 0.5ML IM UTD 04/29 completed Not Available Not Available Not Available Fluad 65yr up(PF)45 mcg(15 mcgx3)/0.5 mL intramuscul ar syringe ADM 0.5ML IM UTD 05/18 completed Not Available Not Available Not Available Fluzone High-Dose Quad 2020-21 (PF) 240 mcg/0.7 mL IM syringe ADM [...] 99 % 175 mm[Hg] 58 mm[Hg] Joyce Savita [place] [facility] 5 09:02:02 Social History Question Answer Notes LastModified by Organizat ion Details LastModified Time Tobacco Smoking Status Former Smoker Quit x 50 Not Available [employer] 07/07/2020 03:16:09 What Is Your Level Of Alcohol Consumption? Occasional [id number] Information not available 07/07/2020 Are You Currently Employed? Yes [id number] Information not available 07/07/2020 Which Illicit Or Recreational Drugs Have You Used? 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 Alone Information not available 04/29/2019 Marital Status Informatio n not available 04/29/2019 How Many Years Have You Smoked Tobacco? 3 [id number] Information not available 07/07/2020 Sex: Unknown Functional [...] SNOMED-CT Code Diagnosis ICD10 Code Diagnosis Note [id number] Omar Coulter MD PAIN OFFICE [address] [facility],[address] [place] [address] 12/07/2024 08:57:10 12/07/2024 16:05:22 Lumbosacral radiculopathy 3056901 M54.17 Degenerati on of lumbar intervertebral disc 86160579 M51.362 Health Concerns Section Related Observation LastModified by Organization Detai ls LastModified Time None Recorded Concern Status LastModified by Organization Details LastModified Time None Recorded Payers Encounter Date Sequence Insurance Name Policy Number Policy Jones Covered Member ID Jones Member ID Guarantor Name 12/07/2024 2 [employer] (MEDICARE SUPPLEMENT) Kayleen Wilson [id number] Kayleen Wilson 12/07/2024 1 MEDICARE [place]: [employer] Kayleen Maya Steve [id number] Kayleen Wilson Notes Date Note Type Note Provider Name and Address Organization Details Recorded Time 12/07/2024 text/html She is here for a lumbar epidural steroid injection under fluoroscopic guidance. Omar Coulter MD [address] , [address], [place], [address], [facility] - Pain Management 12/07/2024 16:08:18 OBGyn Episode No OBEpisode recorded.
--- OUTSIDE RECORDS SUMMARY | 2024-12-14 12:10 | XMS_ITS ---
Author Organization [facility] Address [address] [place] [address] Care Team Providers Care Mission Analyst Name Role Phone CHANDU CHISHOLM Primary Care Provider Taiwo Azar Unavailable [phone] Allergies Allergen (clinical drug ingredient) Drug/Non Drug [...] FOR VISIT Patient presents today for gerd Medications Medication SIG (Take, Route, Frequency, Duration) [...] Gabapentin 100 MG Oral for 30 Active Social History Tobacco Use: Social History Observation [...] Negative Section Notes: Nonsmoker; no sig alcohol Problems Problem Type SNOMED Code ICD Code Onset Dates Problem Status W/U Status Risk Notes Problem Gastroesophageal reflux disease (disorder) (629178816) Chronic GERD (K21.9) Active confirmed Vital Signs Blood pressure systolic 00 mm Hg 08/10/20 24 Blood pressure diastolic 00 mm Hg 024 Height 61 in 08/10/2024 Weight 174 lbs 08/10/2024 BMI 32.87 kg/m2 08/10/2024 Encounters [facility]counter [facility] Date [facility] [address] [facility] [address] [place] [address] 08/10/2024 Taiwo Mcintosh Diarrhea R19.7 ; Nausea R11.0 and Chronic GERD K21.9 Assessments Encounter Date Diagnosis (ICD Code) Assessment Notes Treatment Notes Treatment Clinical Notes Section Notes 08/10/2024 Diarrhea (ICD-10 - R19.7) Overall, Kayleen appears well from a GI standpoint. We [...] develops any relapse in her GI symptoms. Kayleen was comfortable with this plan. Thank you again for allowing me to have participated in Gilberts care. Please do not hesitate to contact me if I can be of any further assistance in the future. 08/10/2024 Nausea (ICD-10 - R11.0) Overall, Kayleen appears well from a GI standpoint. We [...] develops any relapse in her GI symptoms. Kayleen was comfortable with this plan. Thank you again for allowing me to have participated in Kayleen's care. Please do not hesitate to contact me if I can be of any further assistance in the future. 08/10/2024 Chronic GERD (ICD-10 - K21.9) Overall, Kayleen appears well from a GI standpoint. We [...] develops any relapse in her GI symptoms. Kayleen was comfortable with this plan. Thank you again for allowing me to have participated in [facility] care. Please do not hesitate to contact me if I can be of any further assistance in the future. Plan Of Treatment Medication Medication Name Sig Start Date Stop [...] Follow Up: prn, Reason: Progress Notes * KAYLEEN VORA CDOB: [birth year] (79 yo F)Acc No.[id number]:08/10/2024 Progress Notes Patient:?KAYLEEN VORA Provider:?Taiwo Mcintosh MD :1945???Age:79 Y???Sex:Female D ate:08/10/2024 Address:[place] [address] , [facility] Pcp:CHANDU CHISHOLM Subjective: * Chief Complaints: * ???Patient presents today fo r gerd * HPI: ???incontinence:? I saw Kayleen in followup today in regard to her previous issues with reflux, nausea, anorexia, diarrhea, and weight loss. ?I last saw Kayleen in March, at which time she underwent an upper endoscopy and colonoscopy. Both of these procedures were negative for any significant issues that would be contributing to her GI problems. The upper endoscopy revealed a small hiatal hernia but was negative for celiac disease, significant gastritis, H. pylori, and esophagitis. The colonoscopy did not reveal any polyps, inflammatory bowel disease, or microscopic colitis. Since that time she has been continuing her daily omeprazole and reports that has been working fairly well for her symptoms of reflux. She denies any significant heartburn or dysphagia. She still describes a somewhat limited appetite but has not lost any weight since I saw her in February. She has occasional nausea and dry heaves but not on a regular nor daily basis. She has been using p.r.n. Zofran with good relief of that. She does describe occasional diarrhea which responds nicely to Imodium. However, the episodes of diarrhea are infrequent and not associated with any other symptoms such as bleeding or abdominal pain. ?She denies any jaundice, fevers, nor any unintentional weight loss. ?Her previous workup with stool studies were negative for, C. difficile, negative for Giardia, and had a negative GI panel. Recent laboratories over the past couple of months revealed normal chemistries, a normal liver profile, and normal CBC. * ROS:?General/Constitutional:?Change in appetite?denies.?Chills?denies.?Fatigue?denies.?Ophthalmologic:?Comments?all negative.?ENT:?Comments?all negative.?Respiratory:?hemoptysis?denies.?Cough?denies.?Cardiovascular:?Chest pain?denies.?Orthopnea?denies.?Gastrointestinal:?Comments?See HPI for details.?Genitourinary:?Hematuria?denies.?Dysuria?denies.?Musculoskeletal:?Painful joints?Back and Neck pain.?Weakness?denies.?Skin:?Itching?denies.?Rash?denies.?Neurologic:?Headache?denies.?Seizures?denies.?Psychiatric:?Comments?all negative.? * Medical History:? * Surgical History:?Hysterecto my and removal of 1 ovary Appendectomy Cholecystectomy Carpal tunnel release- both wrists 2 knee replacements Left lumpectomy 2020 with XRT Cataracts * Hospitalization/Major Diagno stic Procedure:?No Hospitalization History. * Family History:?Father: dece ased, diagnosed with HTN (hypertension), Diabetes, Heart disease.?Mother: , diagnosed with Colon polyps.? No colorectal cancer. No family history of liver cancer. * Social History:?Tobacco Use:?Tobacco Use/Smoking?Patient is a?former smoker.?Drugs/Alcohol:?Alcohol Screen?Did you have a drink containing alcohol in the past year??Yes,?How often did you have a drink containing alcohol in the past year??2 to 4 times a month (2 points),?How many drinks did you have on a typical day when you were drinking in the past year??1 or 2 drinks (0 point),?How often did you have 6 or more drinks on one occasion in the past year??Never (0 point),?Points?2,?Interpretation?Negative.?Miscellaneous:?Marital status: . 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 ???Nonsmoker; no sig alcohol. * Medications:?TakingCalcium 1 tab Oral potassium 1 tab Oral buPROPion HCl 100 MG Tablet 1 tablet Orally Twice a dayCarvedilol 25 MG Tablet 1 tablet with food Orally Twice a dayAtorvastatin Calcium 10 MG Tablet 1 tablet Orally Once a dayLantus 100 UNIT/ML Solution 20-25 units Subcutaneous once a dayJanuvia 100 MG Tablet 1 tablet Orally Once a dayLevothyroxine Sodium 75 MCG Tablet 1 tablet on an empty stomach in the morning Orally Once a dayOmeprazole 20 MG Capsule Delayed Release 1 Orally Once every morningOndansetron 4 MG Tablet Disintegrating 1 tablet on the tongue and allow to dissolve Orally Every 4 to 6 hours as needed for nauseaImodium A-D 2 MG Tablet 1 or 2 tablets Orally Every 4 to 6 hours as needed for diarrheaGabapentin 100 MG Capsule Oral Taking Calcium 1 tab Oral Taking potassium 1 tab Oral Taking buPROPion HCl 100 MG Tablet 1 tablet Orally Twice a dayTaking Carvedilol 25 MG Tablet 1 tablet with food Orally Twice a dayTaking Atorvastatin Calcium 10 MG Tablet 1 tablet Orally Once a dayTaking Lantus 100 UNIT/ML Solution 20-25 units Subcutaneous once a dayTaking Januvia 100 MG Tablet 1 tablet Orally Once a dayTaking Levothyroxine Sodium 75 MCG Tablet 1 tablet on an empty stomach in the morning Orally Once a dayTaking Omeprazole 20 MG Capsule Delayed Release 1 Orally Once every morningTaking Ondansetron 4 MG Tablet Disintegrating 1 tablet on the tongue and allow to dissolve Orally Every 4 to 6 hours as needed for nauseaTaking Imodium A-D 2 MG Tablet 1 or 2 tablets Orally Every 4 to 6 hours as needed for diarrheaTaking Gabapentin 100 MG Capsule Oral Not-Taking/PRNMagnesium 300 MG Capsule 1 capsule with a meal Orally Once a dayMedication List reviewed and reconciled with the patientNot-Taking/PRN Magnesium 300 MG Capsule 1 capsule with a meal Orally Once a dayMedication List reviewed and reconciled with the patient * Allergies:?Penicillin G Sodi umCiproMeloxicamGabapentinSulfa Antibioticsk flexyes[Allergies Verified] Objective: * Vitals:?Wt: 174 lbs, Ht: 61 in, BMI:32.87 Index, BP: 00/00 mm Hg. * Examination: ???General Examination: ?GENERAL APPEARANCE:?pleasant, well nourished, well developed, in no acute distress.?EYES:?sclera non-icteric.?ORAL CAVITY:?mucosa moist.?NECK/THYROID:?no cervical lymphadenopathy, neck supple.?SKIN:?nonjaundiced, no spider angiomata.?HEART:?S1, S2 normal.?LUNGS:?clear to auscultation bilaterally.?ABDOMEN:?normal bowel sounds, no guarding or rigidity, no guarding or rigidity, no masses palpable, soft, nontender, nondistended.?EXTREMITIES:?no edema.?NEUROLOGIC:?alert and oriented.? Assessment: * Assessment: 1.?Diarrhea - R19.7 (Primary )?2.?Nausea - R11.0?3.?Chronic GERD - K21.9? Overall, Kayleen appears well from a GI standpoint. We [...] develops any relapse in her GI symptoms. Kayleen was comfortable with this plan. Thank you again for allowing me to have participated in Kayleen's care. Please do not hesitate to contact me if I can be of any further assistance in the future. Plan: * Treatment: 2.?Nausea? Continue Omeprazole Capsule Delayed Release, 20 MG, 1, Orally, Once every morning;?Refill Ondansetron Tablet Disintegrating, 4 MG, 1 tablet on the tongue and allow to dissolve, Orally, Every 4 to 6 hours as needed for nausea, 30 day(s), 40, Refills 6.?? * Procedure Codes:?1036F TOBAC CO NON-[id number] BP SCR NOT PRFRM REC REASON NOS * Preventive Medicine:? ??Counseling:?Care goal follow-up plan:?Above Normal BMI Follow-up?Giving encouragement to exercise,?BMI management provided?Yes.? ??Urinary Incontinence:?Urinary Incontinence?Assessment:?Present,?Plan of care documented:?Yes.? ??Screenings:?Fall Risk Screening?Fall Risk Assessment:?No falls in the past year,?Screening:?No falls in the past year,?Assessment:?Not performed, no reason specified,?Plan of Care:?Not documented, no reason specified.? * Follow Up:?prn * * Sign off status: Completed true * Provider:?Taiwo Mcintosh MD Date:? 024 Generated for Leidy elaine/Manolo/Sunitting on:?12/14/2024 12:09 PM EDT History and Physical Notes * HPI (History of Present Illness) Category Sub-Category Detail Notes Category Not es incontinence I saw Kayleen in followup today in regard to her previous issues with reflux, nausea, anorexia, diarrhea, and weight loss. I last saw Kayleen in March, at which time she underwent an upper endoscopy and colonoscopy. Both of these procedures were negative for any significant issues that would be contributing to her GI problems. The upper endoscopy revealed a small hiatal hernia but was negative for celiac disease, significant gastritis, H. pylori, and esophagitis. The colonoscopy did not reveal any polyps, inflammatory bowel disease, or microscopic colitis. Since that time she has been continuing her daily omeprazole and reports that has been working fairly well for her symptoms of reflux. She denies any significant heartburn or dysphagia. She still describes a somewhat limited appetite but has not lost any weight since I saw her in February. She has occasional nausea and dry heaves but not on a regular nor daily basis. She has been using p.r.n. Zofran with good relief of that. She does describe occasional diarrhea which responds nicely to Imodium. However, the episodes of diarrhea are infrequent and not associated with any other symptoms such as bleeding or abdominal pain. She denies any jaundice, fevers, nor any unintentional weight loss. Her previous workup with stool studies were negative for, C. difficile, negative for Giardia, and had a negative GI panel. Recent laboratories over the past couple of months revealed normal chemistries, a normal liver profile, and normal CBC. Examination Category Sub-Category Detail Notes Category Not es General Examination GENERAL APPEARANCE: pleasant , well [...]
[2024-12-14 13:44] LABS: MANUAL DIFF FLAG NO
[2024-12-14 13:52] LABS: Basophils Percent Auto 0.1 % (0-2); Eosinophils Percent Auto 0.4 % (0-4); Hematocrit 37.8 % (37.0-47.0); Hemoglobin 12.7 g/dl (12.0-16.0); Imm Gran Abs Auto 0.05 X10*3/uL (0.00-0.03); Imm Gran Pct Auto 0.6 % (0.0-0.4); Lymphocytes Absolute Auto 1.2 X10*3/uL (1.2-4.9); Lymphocytes Percent Auto 15.3 % (20-40); Mean Corpuscular HGB Conc 33.6 g/dl (31.0-35.0); Mean Corpuscular Hemoglobin 33.4 pg (27.0-33.0); Mean Corpuscular Volume 99.5 fL (80.0-98.0); Monocytes Absolute Auto 0.7 X10*3/uL (0.1-1.2); Monocytes Percent Auto 9.3 % (2-11); Neutrophils Absolute Auto 5.9 x10*3/uL (2.0-8.3); Neutrophils Percent Auto 74.3 % (45-73); Platelet Count 245 X10*3/uL (160-400); Red Cell Distribution Width 13.7 % (11.0-16.0)
[2024-12-14 14:05] LABS: Alanine Aminotransferase 7 U/L (0-31); Albumin Level 3.7 g/dL (3.5-5.0); Alkaline Phosphatase 85 U/L (39-117); Anion Gap 8 (12-20); Aspartate Amino Transferase 16 U/L (5-31); Bilirubin Total 0.5 mg/dL (0.0-1.0); Blood Urea Nitrogen 21 mg/dL (9-16); Calcium 8.8 mg/dL (8.4-10.2); Carbon Dioxide 23 mmol/L (22-29); Chloride 113 mmol/L (96-108); Cholesterol 174 mg/dL (<200); Estimated Glomerular Filt Rate > 60; Glucose Fasting 147 mg/dL (60-99); HDL Cholesterol 46 mg/dL (>40); LDL Cholesterol Calculated 85 mg/dL (<100); Potassium 3.1 mmol/L (3.3-5.1); Sodium 141 mmol/L (135-145); Total Protein 6.4 g/dL (6.5-8.0); Triglycerides 215 mg/dL (<150)
[2024-12-14 14:25] LABS: TSH reflex Free T4 1.52 uIU/mL (0.32-4.0); Vitamin D 25-OH Total 34.4 ng/mL (>30)
== END 2024-12-14 10:11 | disposition home or self-care (01) ==
LOC: HO.HMGCLDS 10:10
PROVIDERS: PCP Nurse Practitioner Family; Visit Provider Nurse Practitioner Family
DX: I10 Essential (primary) hypertension (principal); E03.9 Hypothyroidism, unspecified; E55.9 Vitamin D deficiency, unspecified
CPT/HCPCS: 36415; 80053; 80061; 82306; 84443; 85025

== ENCOUNTER 2024-12-15 08:30 | Outpatient (REF) | payer MEDICARE, OTHER, SELFPAY ==
[2024-12-15 13:38] LABS: Appearance Urine Clear; Color Urine Yellow; Glucose Urine UA Negative (Negative); Leukocyte Esterase Urine Small (1+) (Negative); Nitrite Urine Negative (Negative); PH 5.5 (5.0-9.0); Specific Gravity - Urine >= 1.030 (1.005-1.025); UMIC TRIGGER UACC YES; Urine Blood Negative (Negative); Urine Ketones Trace mg/dL (Negative); Urine Protein 100 (2+) mg/dL (Neg-Trace)
[2024-12-15 13:45] LABS: Bacteria Urine None Seen (None Seen); Hyaline Casts Urine 0-2 /LPF (0-2); RBC Urine 0-2 /HPF (0-2); UACC Culture Trigger YES
== END 2024-12-15 08:31 | disposition home or self-care (01) ==
LOC: HO.HMGCLNP 08:30
PROVIDERS: Visit Provider Nurse Practitioner Family
DX: I10 Essential (primary) hypertension (principal); E03.9 Hypothyroidism, unspecified; E55.9 Vitamin D deficiency, unspecified; R39.9 Unspecified symptoms and signs involving the genitourinary system
CPT/HCPCS: 81001; 87086

== ENCOUNTER 2024-12-17 12:01 | Outpatient (REF) | payer MEDICARE, OTHER, SELFPAY ==
[2024-12-17 13:49] LABS: Anion Gap 10 (12-20); Carbon Dioxide 23 mmol/L (22-29); Chloride 113 mmol/L (96-108); Potassium 3.6 mmol/L (3.3-5.1); Sodium 142 mmol/L (135-145)
== END 2024-12-17 12:02 | disposition home or self-care (01) ==
LOC: HO.HMGCLDS 12:01
PROVIDERS: PCP Nurse Practitioner Family; Visit Provider Nurse Practitioner Family
DX: E87.6 Hypokalemia (principal)
CPT/HCPCS: 36415; 80051

== ENCOUNTER 2024-12-20 09:31 | Outpatient (AMB) | payer MEDICARE, OTHER, SELFPAY ==
[2024-12-20 09:38] VITALS: BP 122/80; PULSE 66; O2SAT 97; BMI 31.7
--- NOTE | 2024-12-20 09:38 | A.OFFPC_ITS ---
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 Required: No Accompanied by: Self / Same As Patient Allergies cephalexin [From Keflex] Allergy (Severe, Verified 12/20/24 09:57) Swelling ciprofloxacin [From Cipro] Allergy (Severe, Verified 12/20/24 09:57) eye swelling penicillin G Allergy (Severe, Verified 12/20/24 09:57) Angioedema Penicillins Allergy (Severe, Verified 12/20/24 09:57) ANGIOEDEMA gabapentin Allergy (Verified 12/20/24 09:57) Unknown meloxicam Allergy (Verified 12/20/24 09:57) Unknown NSAIDS (Non-Steroidal Anti-Inflamma Adverse Reaction (Verified 12/20/24 09:57) Unknown Sulfacet-R Allergy (Severe, Uncoded 12/20/24 09:57) Swelling Medication List - Last Reconciled 12/20/24 by COLLEEN Claros- atorvastatin 10 mg PO DAILY 90 days bupropion HCl 100 mg PO TID 90 days carvedilol 25 mg PO BID gabapentin 100 mg PO TID 30 days insulin glargine (Lantus Solostar U-100 Insulin) 12 units subcut QAM levothyroxine 50 mcg PO DAILY ondansetron mg PO pen needle, diabetic (Pen Needle) Use to inject insulin once a day sitagliptin phosphate (Januvia) 100 mg PO DAILY 90 days Tobacco use date assessed: 12/20/24 Fall risk assessment: No Falls in past year Last assessed Fall Risk: 12/20/24 Dental Screening Dental Screen Date: 12/20/24 Did you have a dental visit in the last 12 months?: Yes Did you have a dental problem in the last 6 months where you did not have access to dental care?: No Was dental information given to patient?: Patient has dentist HPI 6 month follow up HTN, DM HPI Details Chief Complaint Follow-up for hypertension and diabetes management. History of Present Illness The patient is a 79-year-old female presenting for follow-up for hypertension and diabetes management. Her hypertension is currently stable, and she is managing her Type 2 Diabetes Mellitus effectively, demonstrated by a recent Hemoglobin A1c of 5.4. The patient is vigilant about maintaining regular eye examinations. She has noted a slight decrease in weight and engages in physical therapy to mitigate generalized weakness in her bilateral extremities. Her potassium level, previously slightly abnormal, was rechecked and found to be normal. Notably, she denies experiencing significant shortness of breath, chest pain, or current neuropathy in her feet. She continues routine consultations with her production supply equipment tender. HTN: stable. depression: increasing buproprion from bid to tid dosing, does not want a therapist currently, will follow up with her, and she knows to contact the office with further questions or concerns. Social History Health Maintenance - Regular eye examinations for age-relat ed macular degeneration. - Routine monitoring of Hemoglobin A1c f or diabetes management. Review of Systems - Cardiovascular: Denies chest pain, exc essive shortness of breath. - Neurological: Denies any current neuro pathies. - Musculoskeletal: Reports generalized w eakness in bilateral extremities (uses cane, sig lower back hx) Physical Exam General: Cooperative, healthy appearing, comfortable, no acute distress and well developed Orientation: Patient oriented x3 Limitations: No limitations Head: Normal to inspection Ears: Hearing grossly normal bilaterally Nose: Normal external nose present Face and sinus: Normal facial exam Eyes: Appearance normal, both eyes and all related structures Neck: Normal visual inspection and Yes full ROM Respiratory: Normal respiratory effort and able to speak in complete sentences. Clear to auscultation bilaterally Cardiovascular: Regular rate and rhythm. Normal S1 and S2. systolic murmur noted GI: Normal to inspection. Soft to palpation and nontender Skin: No rashes or lesions noted Neuro: Patient oriented x3. Positive sensation with use of monofilaments via lower extremities, intact Extremities: Normal to inspection. Weakness in bilateral extremities Results - Labs: Hemoglobin A1c 5.4; Potassium le sharon retaken and found within normal limits. Plan 1. 4, and I advised to continue with the existing regimen. Routine eye exams shall proceed given her age-related macular degeneration. Physical therapy is advised to continue addressing her bilateral extremity weakness. Her potassium level was re-evaluated and normalized, negating immediate concerns. She will continue regular visits to her production supply equipment tender for kidney function assessment amidst her ongoing healthcare.: Discussion Notes I reviewed with the patient the status of her hypertension and diabetes, emphasizing the importance of continued adherence to her current medication regimen to maintain control, as evidenced by her current A1c level of 5.4. The implications of regular eye exams were reiterated to manage her macular degeneration effectively. We discussed her progress with physical therapy to address lower extremity weakness and affirmed the normal potassium levels as reassuring. I encouraged her to keep attending nephrology appointments to ensure proactive management of her renal health. Patient Instructions [facility] Medical History (Updated 12/20/24 @ 10:19 by COLLEEN Claros-CLAUDE) Elevated cholesterol Breast cancer Hx of radiation therapy Depression Spinal stenosis Degenerative disc disease, cervical Arthritis Back pain HTN (hypertension) Diabetes Disc degeneration, lumbar Lumbar radiculopathy Osteoarthritis Breast cancer, left Surgical History Hx of bilateral cataract extraction History of knee replacement History of carpal tunnel release of both wrists Hx of cholecystectomy Hx of appendectomy Hx of hysterectomy History of lumpectomy of left breast H/O colonoscopy History of total left knee replacement Social History Housing: House Patient Tobacco Use Status: Former Tobacco user Tobacco use type: Cigarette Years Smoked: 50 years ago e-Cigarette/Vaping Use: Never Used Second Hand Smoke Exposure: No service: No Current occupational status: employed Current occupation: [employer] Current occupational exposures/hazards: No Cognitive needs: No Hearing needs: No Vision needs: Yes Questionnaire PHQ-9 Over the last 2 weeks, how often have you been bothered by any of the following problems? 1. Little interest or pleasure in doing things: several days 2. Feeling down, depressed, or hopeless: nearly every day 3. Trouble falling or staying asleep, or sleeping too much: more than half the days 4. Feeling tired or having little energy: more than half the days 5. Poor appetite or overeating: more than half the days 6. Feeling bad about yourself - or that you are a failure or have let yourself or your family down: not at all 7. Trouble concentrating on things, such as reading the newspaper or watching television: not at all 8. Moving or speaking so slowly that other people could have noticed. Or the opposite - being so fidgety or restless that you have been moving around a lot more than usual: not at all 9. Thoughts that you would be better off or of hurting yourself in some way: not at all Total score: 10 Depression Screening Interpretation: Positive (increased medication, will cont to monitor) Depression Screening Follow-up: Existing condition Depression Screening Done: Yes 38286 - PHQ-9 Billing: Yes Source: Developed by Drs. Taiwo Banegas, Pat Benoit, Nestor Zimmer and colleagues, with an educational valarie from [employer]. Thrive Questionnaire Date Thrive assessed: 12/20/24 I am a: Patient What is your living situation today?: I have a steady place to live Within the past 12 months, did the food you bought not last and you didn't have the money to get more?: Never true Within the past 12 months, did you worry whether your food would run out before you got money to buy more?: Never true Do you have trouble paying for medicines?: No Do you have trouble getting transportation to medical appointments?: No Do you have trouble paying your heating and electricity bill?: No Do you have trouble taking care of your child, family member or friend?: No Do you have trouble with day-to-day activities such as bathing, preparing meals, shopping, managing finances, etc.?: No Are you currently unemployed and looking for a job?: No Are you interested in more education?: No Please select the resources that you would like help with: None Currently or been in a relationship where the following occur: I choose not to answer THRIVE Score: 0 AUDIT C Alcohol Use Questionnaire (AUDIT-C) 1. How often do you have a drink containing alcohol?: Monthly or less 2. How many drinks containing alcohol do you have on a typical day when you are drinking?: 1 or 2 3. How often do you have six or more drinks on one occasion?: Never Total Score: 1 Score Reviewed/Action Taken: Yes LESLIE-7 AMB Questionnaire LESLIE-7 Date LESLIE - 7 assessed: 12/20/24 Feeling nervous, anxious, or on edge: 1 = Several days Not being able to stop or control worryin = Not at all Worrying too much about different things: 0 = Not at all Trouble relaxin = Not at all Being so restless that it is hard to sit still: 0 = Not at all Becoming easily annoyed or irritable: 0 = Not at all Feeling afraid as if something awful might happen: 0 = Not at all Total LESLIE-7 score (0-4 normal; 5-9 mild; 10-14 moderate; 15-21 severe): 1 Source: Developed by Drs. Taiow Banegas, Pat Benoit, Nestor Zimmer and colleagues, with an educational valarie from [employer]. LESLIE-7 Assessment Billing LESLIE-7 Assessment Tool: LESLIE-7 Assessment 72155 Physical exam (Primary Care) Vital Signs: Last Vital Signs Pulse 66 12/20/24 09:38 BP 122/80 12/20/24 09:38 Pulse Ox 97 12/20/24 09:38 Oxygen Delivery Method Room Air 12/20/24 09:38 BMI result Body Mass Index 31.7 Tobacco/Smoking Status: Tobacco use Status Tobacco use date assessed 12/20/24 12/20/24 09:40 Patient Tobacco Use Status Former Tobacco user 12/20/24 09:40 Tobacco use type Cigarette 12/20/24 09:40 e-Cigarette/Vaping Use Never Used 12/20/24 09:40 PHQ-9: PHQ-9 Score PHQ-9: Total score 10 12/20/24 10:16 Depression Screening Interpretation: Positive (increased medication, will cont to monitor) Depression Screening Follow-up: Existing condition Thrive Assessment: Date of Thrive Assessment Date Thrive assessed 12/20/24 12/20/24 09:40 Currently or been in a relationship where the following occur: I choose not to answer Results AMB Hemoglobin A1c AMB Hemoglobin A1c 5.4 % Last Edit by Dimitry Joyce CMA on 12/20/24 10: 01 Results Reviewed Results Reviewed: Laboratory Last Values Hgb A1c (Clinic) 5.4 % (4.0-6.0) 12/20/24 10:00 Coding Level of Care Code Est Pt Level 3 (16520) Diagnoses HTN (hypertension) I10 Diabetes E11.9 Depression F32.A Systolic murmur R01.1 Additional Codes LESLIE-7 Assessment Billing - LESLIE-7 Assessment Tool: LESLIE-7 Assessment 07594 ([id number]) PHQ-9 - 41190 - PHQ-9 Billing: Yes ([id number]) Assessment & Plan Assessment & Plan (1) HTN (hypertension): Code(s): I10 - Essential (primary) hypertension Category: Medical (2) Diabetes: Code(s): E11.9 - Type 2 diabetes mellitus without complications Category: Medical (3) Depression: Code(s): F32.A - Depression, unspecified Category: Medical (4) Systolic murmur: Code(s): R01.1 - Cardiac murmur, unspecified Category: Medical Plan . Orders: Orders AMB Hemoglobin A1c Today Z13.9 - Encounter for screening, unspecified CA echo transthoracic complete 3 Months R01.1 - Cardiac murmur, unspecified, R93.1 - Abnormal findings on diagnostic imaging of heart and coronary circulation Medications: Changed From bupropion HCl 100 mg PO BID 90 days 180 tabs 1RF To bupropion HCl 100 mg PO TID 270 tabs 1RF 90 days
== END 2024-12-20 10:50 | disposition home or self-care (01) ==
LOC: HO.HMCC 09:32
PROVIDERS: PCP Nurse Practitioner Family; Visit Provider Nurse Practitioner Family
DX: I10 Essential (primary) hypertension (principal); E11.9 Type 2 diabetes mellitus without complications; F32.A Depression, unspecified; R01.1 Cardiac murmur, unspecified; Z13.9 Encounter for screening, unspecified

== ENCOUNTER → 2024-12-20 09:31 | Outpatient (BNVA) | payer MEDICARE, OTHER, SELFPAY | PROVIDERS: PCP Nurse Practitioner Family; Visit Provider Nurse Practitioner Family | DX: I10 Essential (primary) hypertension (principal); E11.9 Type 2 diabetes mellitus without complications; R01.1 Cardiac murmur, unspecified; F32.A Depression, unspecified | CPT/HCPCS: 83036; 96127; 99212 ==

== ENCOUNTER 2025-01-28 11:25 | Outpatient (REF) | payer MEDICARE, OTHER, SELFPAY ==
--- OUTSIDE RECORDS SUMMARY | 2025-01-28 11:53 | XMS_ITS | Clinical Summary ---
Author Organization [facility] Address [address] [place] [address] Care Team Providers Care White Kid Buffer Name Role Phone John Herrera Primary Care Provider [phone] Allergies Active Allergy Reactions Criticality Noted Date [...] age to complete this topic Care Teams White Kid Buffer Relationship Specialty Start Date End Date John Herrera [address] [facility] [place] [address] PCP - General Family Medicine 05/30/23
--- OUTSIDE RECORDS SUMMARY | 2025-01-28 11:53 | XMS_ITS | Encounter Summary ---
Author Organization [facility] Address [address] [place] [address] Phone Care Team Providers Care Control Clerk Subassembly Name Role Phone John Herrera NP Primary Care Provider [phone] Reason for Visit * Reason Comments Med Refill Encounter Details Date Type Department Care Team (Late st Contact Info) Description 11/15/2023 Refill [facility] [address] [place] [phone] Karson Law MD Social History Tobacco Use [...] on filedocumented in this encounter Care Teams Control Clerk Subassembly Relationship Specialty Start Date End Date John Herrera NP [address] [facility] [place] [address] PCP - General Nurse Practitioner 09/05/21 documented as of this encounter
--- OUTSIDE RECORDS SUMMARY | 2025-01-28 11:53 | XMS_ITS | Encounter Summary ---
Author Organization [facility] Address [address] [place] [address] Care Team Providers Care Technology Sales Representative Name Role Phone John Herrera MD Primary Care Provider Encounter Details Date Type Department Care Team (Late Contact Info) Description 02/03/2024 Scanned Document [facility] Department of Internal Medicine & Nephrology [address] [phone] Karson Law MD [address] [place] [phone] Social History Tobacco Use Types Packs/Day Years Used Date Smoking Tobacco: Never Assessed Comments Unknown Sex and Gender Information Value Date Recorded Sex Assigned at Not on file Legal Sex Female 12:02 PM EDT Gender Identity Not on file Sexual Orientation Not on file documented as of this encounter Plan of Treatment Upcoming Encounters Date Type Department Care Team (Late Contact Info) Description 03/18/2025 10:20 AM EDT Office Visit [facility] Department of Internal Medicine & Nephrology [place] [address] [place] [address] Karson Law MD [address] [phone] documented as of this encounter Visit Diagnoses Not on filedocumented in this encounter Care Teams Technology Sales Representative Relationship Specialty Start Date End Date John Herrera MD [address] [facility] [place] [address] PCP - General Family Medicine 5/14/24 documented as of this encounter
--- OUTSIDE RECORDS SUMMARY | 2025-01-28 11:53 | XMS_ITS ---
Author Organization [facility] Address [address] [place] [address] Care Team Providers Care Fulfillment Representative Name Role Phone CHANDU CHISHOLM Primary Care Provider Taiwo Azar Unavailable [phone] REASON FOR VISIT diarrhea,wt loss,nausea Problems Problem Type SNOMED Code ICD Code Onset Dates Problem Status W/U Status Risk Notes Problem Diverticulosis o f large intestine without perforation or abscess without bleeding (K57.30) Active confirmed Encounters Encounter Location Date Provider Diagnosis [facility] [address] [place], [place] [phone] 03/26/2024 Taiwo Mcintosh Diarrhea R19.7 ; W [...] NANCY VORA CDOB: 7 (79 yo F)Acc No.[id number]:03/26/2024 EGD and COL/MAC Patient:?NANCY VORA Provider:?Taiwo Mcintosh MD :1945???Age:78 Y???Sex:Female D ate:03/26/2024 Address[address] [address] , [id number] Pcp:CHANDU CHISHOLM Subjective: * Chief Complaints: * ???1. Diarrhea,wt loss,nause a. * Medical History:? Objective: * Vitals:? Assessment: * Assessment: 1.?Diarrhea - R19.7 (Primary )???2.?Weight loss - R63.4???3.?Diverticulosis of large intestine without perforation or abscess without bleeding - K57.30???4.?Other hemorrhoids - K64.8???5.?Nausea - R11.0???6.?Hiatal hernia - K44.9??? Plan: * Treatment: * Procedure Codes:?71253 COLON OSCOPY AND BIOPSY, 0529F INTRVL 3+YRS PTS CLNSCP DOCD, 0528F RCMND FLW-UP 10 YRS DOCD, Modifiers: 8P , 75740 UPPER GI ENDOSCOPY, BIOPSY * * The named appointment provid er may or may not be the originator of this progress note, and it is not deemed complete until electronically signed by the appointment provider. Sign off status: Pending * Provider:?Taiwo Mcintosh MD Date:? 024 Generated for Leidy elaine/Manolo/eTransmitting on:?01/28/2025 11:53 AM EDT
--- OUTSIDE RECORDS SUMMARY | 2025-01-28 11:54 | XMS_ITS ---
Author Organization [facility] Address [address] [place] [address] Care Team Providers Care Gang Drill Press Operator Name Role Phone CHANDU CHISHOLM Primary Care Provider Taiwo Azar Unavailable [phone] Allergies Allergen (clinical drug ingredient) Drug/Non Drug [...] Problem Status W/U Status Risk Notes Problem Chronic GERD (K21.9) Active confirmed Vital Signs Blood pressure systolic 00 mm Hg 08/10/20 24 Blood pressure diastolic 00 mm Hg 024 Height 61 in 08/10/2024 Weight 174 lbs 08/10/2024 BMI 32.87 kg/m2 08/10/2024 Encounters Encounter Location Date [facility] [address] [facility] [address] [place] [phone] 08/10/2024 Taiwo Mcintosh Diarrhea R19.7 ; Nausea [...] KAYLEEN VORA CDOB: 7 (79 yo F)Acc No.[id number]:08/10/2024 Progress Notes Patient:?KAYLEEN VORA Provider:?Taiwo Mcintosh MD :1945???Age:79 Y???Sex:Female D ate:08/10/2024 Address[place] [address] , [place] Pcp:CHANDU CHISHOLM Subjective: * Chief Complaints: * [...] past year??Never (0 point),?Points?2,?Interpretation?Negative.?Miscellaneous:?Marital status: . Occupation: [employer]. ???Nonsmoker; no sig alcohol. * Medications:?TakingCalcium 1 [...] Refills 6.?? * Procedure Codes:?1036F TOBAC CO [id number] BP SCR NOT PRFRM REC REASON NOS [...] Date:? 024 Generated for Leidy elaine/Manolo/eTransmitting on:?01/28/2025 11:54 AM EDT History and Physical Notes * HPI [...]
--- OUTSIDE RECORDS SUMMARY | 2025-01-28 11:54 | XMS_ITS | Clinical Summary ---
Author Organization [facility] Address [address] [place] [address] Care Team Providers Care Third Rail Installer Name Role Phone John Herrera MD Primary [...] Sulfamethoxazole-Trimeth oprim Other (See Comments) 01/18/2021 Medications atorvastatin (LIPITOR) 10 MG tablet Take 10 mg by mouth daily. 05/15/2023 Active buPROPion (WELLBUTRIN) 100 MG tablet Take 1 tablet by mouth 2 (two) times a day. 06/04/2023 Active carvedilol (COREG) 25 MG tablet 06/03/2023 Active insulin glargine (Lantus SoloStar) 100 units/mL prefilled pen injection See Admin Instruction s. Active levothyroxine (SYNTHROID, LEVOTHROID) 50 MCG tablet [...] type 2 diabetes mellitus 02/09/2024 Nephrolithiasis 02/09/2024 Social History Tobacco Use Types Packs/Day Years [...] Description 03/18/2025 10:20 AM EDT Office Visit [facility] Department of Internal Medicine & Nephrology [place] [address] [place] [phone] Karson Law MD [address] [phone] Health Maintenance Due Date Last Done Comments [...] Patients (1 - 1-dose 75+ series) 2022 COVID-19 Vaccine ( - 2023-2 5 season) 2024 Hemoglobin A1C 02/07/2025 08/10/2024 Influenza Vaccine 04/22/2025 Creatinine with GFR 08/10/2025 08/10/2024 Hepatitis B [...] 08/10/2024 2:47 PM EST 08/10/2024 Narrative [facility] ([facility]) - 08/11/2024 6:10 AM EST Performed at: ??01 - [facility] [address] ??[id number] Compliance Analyst: Suzi Stern MD, Phone: ??[phone] Karson Law MD LAB BLOOD ORDERABLES Carol l Result [facility] ([facility]) [facility] 1 * (ABNORMAL) BASIC METABOLIC PANEL [...] 08/10/2024 2:47 PM EST 08/10/2024 Narrative [facility] ([facility]) - 08/11/2024 7:07 AM EST Performed at: ??01 - [facility] [address] ??[id number] Compliance Analyst: Suzi Stern MD, Phone: ??[phone] Karson Law MD LAB BLOOD ORDERABLES Carol rasmussen Result [facility] ([facility]) [facility] 1 from Last 3 Months or Most Recently Relevant to Health Maintenance Insurance MEDICARE PART A & B [facility] SUPPLEMENT ONLY Care Teams Third Rail Installer Relationship Specialty Start Date End Date John Herrera MD [address] [place] [address] PCP - General Family Medicine 02/03/24
--- OUTSIDE RECORDS SUMMARY | 2025-01-28 11:54 | XMS_ITS | Data Portability ---
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 Patient states she took her first and only dose of Anastrozole on Friday night and Friday morning started with profuse watery diarrhea every 15 minutes. She tried eating toast and a cristofer yesterday which she threw up and has been dry heaving since. She reports diarrhea slightly improved yesterday but began again today and states she is going every 30-45 minutes but less volume. Denies fever, chills, URI sxs, rash, hematemesis, hematochezia, melena, mucus in stool, abdominal pain or distention. Denies sick contacts or new foods. She has been tolerating sips of water and gatorade. Her oncologist prescribed Zofran and diphenoxylate-atro pine which have provided mild relief. Denies any antibiotic use in the last 90 days and denies ever having C diff. No recent travel. Exam: afebrile, RRR, normotensive, normal resps, O2 sat 97% on RA, non-toxic, well appearing, intermittent dry heaves. GENERAL: well developed, well nourished, appears stated age, sitting comfortably in no acute distress, occasionally dry heaving. HEENT: normocephalic, atraumatic, PERRLA, EOMI, sclera anicteric, no conjunctival injection, nares patent, posterior pharynx without lesions, or erythema, mmm. NECK: trachea midline, no masses, cervical lymphadenopathy, or thyromegaly. RESP: normal I:E, breathing non-labored, no accessory muscle use, clear to auscultation bilaterally, no wheezes, rhonchi, or rales. CARDIO: RRR, normal S1, S2, no murmurs, rubs, or gallops, radial pulses 2+ bilaterally. ABD: soft, non-tender, non-distended, normoactive BS x4, no masses or HSM. MUSK: normal strength, ROM, muscle tone, no atrophy. EXTREMITIES: warm, well perfused, no cyanosis, swelling or rashes. NEURO: awake, alert, oriented x3, no focal neuro deficits, moving all extremities spontaneously. SKIN: intact, good turgor, no cyanosis, pallor, ecchymosis, rash, lesions, abrasions, or lacerations. DDx considered, but not limited to: gastroenteritis - possible but less likely afebrile and no abdominal pain irritable bowel syndrome - less likely given acuity, nausesa, and vomiting inflammatory bowel disease - unlikely, afebrile, no abdominal pain or blood or mucus in stool pancreatitis - unlikely, afebrile, no abdominal pain diverticulitis - unlikely afebrile, no abdominal pain SBO - unlikely, no abdominal pain or distention c diff - less likely, afebrile, VSS, no abdominal pain or distention, sxs slightly improved, no recent abx use giardia - unlikely, no recent travel adverse reaction to drug - most likely Work up/Results: CMP and CBC pending. Plan/Discussion: -clinically stable at this time, vitals and exam are reassuring, no clinical signs of dehydration or sepsis -will call with lab results -will treat symptomatically with Benadryl for probable adverse drug reaction and refilled Zofran -Rx sent for Culturelle probiotic -Continue to hydrate well with pedialyte or gatorade -When symptoms improve try a bland diet, BRAT diet -continue to follow up with oncology for alternative medications -call for new or worsening sxs Thank you for your visit with [facility] today. We cannot always find the exact cause of your symptoms during your initial visit. Please follow up with your primary care provider or specialist to be rechecked or seek medical attention if your symptoms do not go away or get worse. If you develop any new or worsening symptoms and need after hours care, please go to nearest ER and/or call 911. If you have additional concerns or develop a change in your condition between 8am-10pm, please call [facility] at [phone] to help navigate your care. In order to obtain further information and compare any laboratory results/values, I have accessed patient records on the [employer]. This information was pertinent in my medical decision making today. Time On Scene with Patient: 00:58:20 [email or web address] Not available 12/08/2020 21:58:49 Plan of Treatment Reminders Order Date Submit Date Provider Last Modified By Organization Details Last Modified Time Details Appointments None recorded. Lab CBC w/ auto diff 2020 ALTHA [facility] (Centralized Electronic Ordering - All Locations), Patient Can Go To The Location Of Their Choice, [id number] 23:11:52 CMP, serum or plasma 2020 MAKENNA [facility] (Centralized Electronic Ordering - All Locations), Patient Can Go To The Location Of Their Choice, [id number] 00:19:02 Referral None recorded. Procedures None recorded. Surgeries None recorded. Imaging None recorded. Medication Orders Benadryl 25 mg capsule 2020 [facility] #[id number], [address] [place], [place], [id number], 20:34:40 ondansetron 4 mg disintegrat ing tablet 2020 [id number], [address], [place], [phone], 20:36:47 Culturelle 10 billion cell capsule 2020 [id number], [address], [place], [phone], 20:34:39 Patient TargetsNo targets recorded. Patient Instructions Encounter Date Encounter Id Patient Instructions Last Modified By Organization Details Last Modified Time 12/08/2020 [id number] contacted sami vicente regarding elevated renal labs from patient baseline. Discussed elevated LFT lab values, I am unable to view recent LFT history in available [facility] patient records. Recommended visit to ED STAT to evaluate as patient recently post op from breast CA lumpectomy. Patient states I am still having stomach issues and diarrhea. Patient states symptoms minimally improved since 12/08/30 visit. Patient states, I have four doctors, which one are you following up with? Informed patient I will fax results to Dr. Bahena and Dr. Swasnon listed as her PCP onfile. Patient states, Dr. swanson and I do everything on the phone, I don't see him in person. Discussed importance of STAT follow up given renal and LFT function. Patient distressed at visiting ED. Refused 911 assist. She will contact her adult son for [facility]REY[facility] transport to [facility] Ed for further evaluation. Call ahead completed to [facility]. Lab report faxed to PCP at this time. Marie Holguin NP [email or web address] Not available 12/09/2020 11:06:36 Reason for Referral None Reported. Results Created Date Observation Date Name Description Value Unit Range Abnormal Flag Note LastModifiedBy Organization Detail LastModifiedTime 12/09/1912/08/2020 CBC w/ auto diff WBC 9.1 K/mm3 (4.0-1 1.0) Not Available [facility] (Centralized Electronic Ordering - All Locations) Patient Can Go To The Location Of Their Choice, [id number] 12/08/2020 23:11:52 12/09/19 21 12/08/2020 CBC w/ auto diff RBC 3.96 M/mm3 (4.20- 5.40) low Not Available [facility] (Centralized Electronic Ordering - All Locations) Patient Can Go To The Location Of Their Choice, [id number] 12/08/2020 23:11:52 12/09/19 21 12/08/2020 CBC w/ auto diff HGB 12.7 gm/dL (11.7- 15.5) Not Available [facility] (Centralized Electronic Ordering - All Locations) Patient Can Go To The Location Of Their Choice, 12/08/2020 23:11:52 12/09/1912/08/2020 CBC w/ auto diff HCT 39.3 % (35.7- 45.8) Not Available [facility] (Centralized Electronic Ordering - All Locations) Patient Can Go To The Location Of Their Choice, 12/08/2020 23:11:52 12/09/1912/08/2020 CBC w/ auto diff MCV 99.2 fL (80.0- 100.0) Not Available [facility] (Centralized Electronic Ordering - All Locations) Patient Can Go To The Location Of Their Choice, 12/08/2020 23:11:52 12/09/1912/08/2020 CBC w/ auto diff MCH 32.1 pg (27.0- 34.0) Not Available [facility] (Centralized Electronic Ordering - All Locations) Patient Can Go To The Location Of Their Choice, 12/08/2020 23:11:52 12/09/1912/08/2020 CBC w/ auto diff MCHC 32.3 g/dL (33.0- 37.0) low Not Available [facility] (Centralized Electronic Ordering - All Locations) Patient Can Go To The Location Of Their Choice, 12/08/2020 23:11:52 12/09/1912/08/2020 CBC w/ auto diff plt 310 K/mm3 (150-4 60) Not Available [facility] (Centralized Electronic Ordering - All Locations) Patient Can Go To The Location Of Their Choice, 12/08/2020 23:11:52 12/09/1912/08/2020 CBC w/ auto diff RDW-SD 54.0 fL (<47.0 ) high Not Available [facility] (Centralized Electronic Ordering - All Locations) Patient Can Go To The Location Of Their Choice, 12/08/2020 23:11:52 12/09/1912/08/2020 CBC w/ auto diff MPV 10.5 fL (9.4-1 2.4) Not Available [facility] (Centralized Electronic Ordering - All Locations) Patient Can Go To The Location Of Their Choice, 12/08/2020 23:11:52 12/09/1912/08/2020 CBC w/ auto diff automated NRBC 0.0 #/100 _WBC' s Not Available [facility] (Centralized Electronic Ordering - All Locations) Patient Can Go To The Location Of Their Choice, 12/08/2020 23:11:52 12/09/1912/08/2020 CBC w/ auto diff abs. NRBC 0.0 K/mm3 Not Available [facility] (Centralized Electronic Ordering - All Locations) Patient Can Go To The Location Of Their Choice, 12/08/2020 23:11:52 12/09/1912/08/2020 CBC w/ auto diff neut # 6.1 K/mm3 (1.3-7 .0) Not Available [facility] (Centralized Electronic Ordering - All Locations) Patient Can Go To The Location Of Their Choice, 12/08/2020 23:11:52 12/09/1912/08/2020 CBC w/ auto diff lymph # 2.1 K/mm3 (0.8-3 .1) Not Available [facility] (Centralized Electronic Ordering - All Locations) Patient Can Go To The Location Of Their Choice, 12/08/2020 23:11:52 12/09/1912/08/2020 CBC w/ auto diff mono# 0.7 K/mm3 (0.4-0 .9) Not Available [facility] (Centralized Electronic Ordering - All Locations) Patient Can Go To The Location Of Their Choice, 12/08/2020 23:11:52 12/09/1912/08/2020 CBC w/ auto diff eo # 0.1 K/mm3 (0.0-0 .4) Not Available [facility] (Centralized Electronic Ordering - All Locations) Patient Can Go To The Location Of Their Choice, 12/08/2020 23:11:52 12/09/1912/08/2020 CBC w/ auto diff baso # 0.0 K/mm3 (0.0-0 .1) Not Available [facility] (Centralized Electronic Ordering - All Locations) Patient Can Go To The Location Of Their Choice, 12/08/2020 23:11:52 12/09/1912/08/2020 CBC w/ auto diff abs. imm gran 0.0 K/mm3 Not Available [facility] ([facility] Order[facility] - All Locations) Patient Can Go To The Location Of Their Choice, 12/08/2020 23:11:52 12/09/1912/08/2020 CBC w/ auto diff neut 67.5 % (44-76 ) Not Available [facility] (Centralized Electronic Ordering - All Locations) Patient Can Go To The Location Of Their Choice, 12/08/2020 23:11:52 12/09/1912/08/2020 CBC w/ auto diff lymph 23.1 % (15-43 ) Not Available [facility] (Centralized Electronic Ordering - All Locations) Patient Can Go To The Location Of Their Choice, 12/08/2020 23:11:52 12/09/1912/08/2020 CBC w/ auto diff monocyte 7.5 % (4.5-1 0.5) Not Available [facility] (Centralized Electronic Ordering - All Locations) Patient Can Go To The Location Of Their Choice, 12/08/2020 23:11:52 12/09/1912/08/2020 CBC w/ auto diff eo 1.2 % (0-6) Not Available [facility] (Centralized Electronic Ordering - All Locations) Patient Can Go To The Location Of Their Choice, 12/08/2020 23:11:52 12/09/1912/08/2020 CBC w/ auto diff baso 0.4 % (0-2) Not Available [facility] (Centralized Electronic Ordering - All Locations) Patient Can Go To The Location Of Their Choice, 12/08/2020 23:11:52 12/09/1912/08/2020 CBC w/ auto diff imm gran 0.3 % Not Available [facility] (Centralized Electronic Ordering - All Locations) Patient Can Go To The Location Of Their Choice, 12/08/2020 23:11:52 12/09/1912/09/2020 CMP, serum or plasm a glucose 87 mg/dL (70-99 ) Not Available [facility] (Centralized Electronic Ordering - All Locations) Patient Can Go To The Location Of Their Choice, 12/09/2020 00:19:02 12/09/1912/09/2020 CMP, serum or plasm a BUN 36 mg/dL (8-23) high Not Available [facility] (Centralized Electronic Ordering - All Locations) Patient Can Go To The Location Of Their Choice, 12/09/2020 00:19:02 12/09/1912/09/2020 CMP, serum or plasm a creatinine 2.0 mg/dL (0.5-1 .0) high Not Available [facility] (Centralized Electronic Ordering - All Locations) Patient Can Go To The Location Of Their Choice, 12/09/2020 00:19:02 12/09/1912/09/2020 CMP, serum or plasm a sodium 135 mmol/ L (133-1 45) Not Available [facility] (Centralized Electronic Ordering - All Locations) Patient Can Go To The Location Of Their Choice, 12/09/2020 00:19:02 12/09/1912/09/2020 CMP, serum or plasm a potassium 4.4 mmol/ L (3.6-5 .2) Not Available [facility] (Centralized Electronic Ordering - All Locations) Patient Can Go To The Location Of Their Choice, 12/09/2020 00:19:02 12/09/1912/09/2020 CMP, serum or plasm a chloride 102 mmol/ L (98-10 7) Not Available [facility] (Centralized Electronic Ordering - All Locations) Patient Can Go To The Location Of Their Choice, 12/09/2020 00:19:02 12/09/1912/09/2020 CMP, serum or plasm a bicarbonate 15 mmol/ L (22-29 ) low Not Available [facility] (Centralized Electronic Ordering - All Locations) Patient Can Go To The Location Of Their Choice, 12/09/2020 00:19:02 12/09/1912/09/2020 CMP, serum or plasm a anion gap 18 (4-17) high Not Available [facility] (Centralized Electronic Ordering - All Locations) Patient Can Go To The Location Of Their Choice, 12/09/2020 00:19:02 12/09/1912/09/2020 CMP, serum or plasm a albumin 4.1 gm/dL (3.4-4 .8) Not Available [facility] (Centralized Electronic Ordering - All Locations) Patient Can Go To The Location Of Their Choice, 12/09/2020 00:19:12/09/1912/09/2020 CMP, serum or plasm a calcium 9.3 mg/dL (8.6-1 0.5) Not Available [facility] (Centralized Electronic Ordering - All Locations) Patient Can Go To The Location Of Their Choice, 12/09/2020 00:19:12/09/1912/09/2020 CMP, serum or plasm a bilirubin,to melia 0.5 mg/dL (0-1.2 ) Not Available [facility] (Centralized Electronic Ordering - All Locations) Patient Can Go To The Location Of Their Choice, 12/09/2020 00:19:12/09/1912/09/2020 CMP, serum or plasm a total protein 6.6 gm/dL (6.2-8 .2) Not Available [facility] (Centralized Electronic Ordering - All Locations) Patient Can Go To The Location Of Their Choice, 12/09/2020 00:19:12/09/1912/09/2020 CMP, serum or plasm a Ag ratio 1.6 Not Available [facility] (Centralized Electronic Ordering - All Locations) Patient Can Go To The Location Of Their Choice, 12/09/2020 00:19:12/09/1912/09/2020 CMP, serum or plasm a AST 161 U/L (0-32) high Not Available [facility] (Centralized Electronic Ordering - All Locations) Patient Can Go To The Location Of Their Choice, 12/09/2020 00:19:02 12/09/1912/09/2020 CMP, serum or plasm a alk phos 132 U/L (35-10 4) high Not Available [facility] (Centralized Electronic Ordering - All Locations) Patient Can Go To The Location Of Their Choice, 12/09/2020 00:19:12/09/1912/09/2020 CMP, serum or plasm a ALT 128 U/L (0-33) high Not Available [facility] (Centralized Electronic Ordering - All Locations) Patient Can Go To The Location Of Their Choice, 12/09/2020 00:19:02 12/09/1912/09/2020 CMP, serum or plasm a est GFR non 24 mL/mi n/1.7 3_M2 Creat inine based estim ated glome rular filtr ation rate (eGFR ) is calcu lated using the Chron ic Kidne y Disea se Epide miolo gy Colla borat ion (CKD- EPI). The CKD-E PI creat inine equat ion has not been valid ated in child cindy (<18 years ), pregn ant women or in some racia l or ethni c subgr oups other than Cauca sians and Afric an Ameri cans. Not Available [facility] (Centralized Electronic Ordering - All Locations) Patient Can Go To The Location Of Their Choice, 12/09/2020 00:19:02 12/09/1912/09/2020 CMP, serum or plasm a est GFR 27 mL/mi n/1.7 3_M2 Creat inine based estim ated glome rular filtr ation rate (eGFR ) is calcu lated using the Chron ic Kidne y Disea se Epide miolo gy Colla borat ion (CKD- EPI). The CKD-E PI creat inine equat ion has not been valid ated in child cindy (<18 years ), pregn ant women or in some racia l or ethni c subgr oups other than Cauca sians and Afric an Ameri cans. Not Available [facility] (Centralized Electronic Ordering - All Locations) Patient Can Go To The Location Of Their Choice, 12/09/2020 00:19:02 Result Notes None recorded. Problems Name Problem SNOMED Code Status Onset Date Resolution Date Notes Provider Name and Address Organization Details Recorded Time Malignant tumor of breast 347647112 Active 2020 NIXON SOMMERS [address] [place], [address], [place] [facility] 19:50:38 Problem Notes None recorded. Procedures Surgical History Date Name Laterality Status Provider Name and Address Organization Details Recorded Time 12/09/19 Venipuncture - DH completed NIXON SOMMERS [address] [place], [address], [place] [facility] 12/08/2020 20:50:59 Imaging Results None recorded. Procedure Notes None recorded. Medical Equipment None Reported. Allergies Allergen ID Allergen Name Allergen Category Reaction Reaction Severity Criticality Documentation Date Start Date Code Code System Note Provider Name and Address Organization Details Recorded Time 537913 Product containin g penicilli n (product) medicatio n Not available Not available Not available 12/08/2020 85497 8001 SNOMED NIXON SOMMERS [address], [place], [place], [address], [place] [facility] 19:50:12 [id number] Cipro medicatio n Not available Not available Not available 12/08/2020 77870 3 RxNorm NIXON SOMMERS [address], [place], [place], [address], [place] [facility] 19:50:18 853055 Substance with sulfonami de structure and antibacte rial mechanism of action (substanc e) medicatio n Not available Not available Not available 12/08/2020 00767 8003 SNOMED NIXON SOMMERS [address], [place], [address], [place] [facility] 19:50:24 Medications Name Sig Start Date Stop Date Status Note LastModified by Organization Details LastModified Time anastrozole 1 mg tablet TAKE 1 TABLET BY MOUTH DAILY active Not Available Not Available No t Available prednisone 10 mg tablet 12/08 completed Not Available Not Available Not Available atorvastati n 10 mg tablet TAKE 1 TABLET BY MOUTH AT BEDTIME active Not Available Not Available No t Available metoprolol succinate ER 50 mg tablet,exte nded release 24 hr TAKE 1 TABLET BY MOUTH EVERY DAY active Not Available Not Available No t Available prochlorper azine maleate 5 mg tablet TAKE 1 TABLET BY MOUTH THREE TIMES DAILY NEEDED FOR NAUSEA OR VOMITING active Not Available Not Available No t Available ondansetron HCl 4 mg tablet TAKE 1 TABLET BY MOUTH EVERY 8 HOURS NEEDED FOR NAUSEA active Not Available Not Available No t Available Lantus U-100 Insulin 100 unit/mL subcutaneou s solution active Not Available Not Available N ot Available diphenoxyla te-atropine 2.5 mg-0.025 mg tablet TAKE 2 TABLETS BY MOUTH FOUR TIMES DAILY NEEDED FOR LOOSE STOOL active Not Available Not Available No t Available levothyroxi ne 75 mcg tablet TAKE 1 TABLET BY MOUTH EVERY DAY active Not Available Not Available No t Available meloxicam 7.5 mg tablet TK 1 T PO D active Not Available Not Available No t Available losartan 100 mg-hydrochl orothiazide 25 mg tablet TAKE 1 TABLET BY MOUTH EVERY DAY active Not Available Not Available No t Available cephalexin 500 mg capsule TAKE 1 CAPSULE BY MOUTH EVERY 8 HOURS FOR 4 DAYS active Not Available Not Available No t Available pantoprazol e 40 mg tablet,anastasia yed release TAKE 1 TABLET BY MOUTH DAILY FOR 14 DAYS active Not Available Not Available No t Available diphenhydra mine 25 mg capsule TAKE 2 CAPSULES BY MOUTH EVERY 6 TO 8 HOURS NEEDED active Not Available Not Available No t Available gabapentin 300 mg capsule TK 1 C PO BID. IF NOT IMPROVED IN 2 WEEKS TK 1 C PO TID 12/08 completed Not Available Not Available Not Available Culturelle 10 billion cell capsule Take 1 capsule every day by oral route for 30 days. 2020 active Not Available Not Available Not Avai lable hydrochloro thiazide 25 mg tablet 12/08 completed Not Available Not Available Not Available diazepam 10 mg tablet TK 1 T PO 1 HOUR BEFORE MRI SCAN 12/08 completed Not Available Not Available Not Available ondansetron 4 mg disintegrat ing tablet DISSOLVE 1 TABLET ON THE TONGUE EVERY 4 TO 6 HOURS FOR 5 DAYS NEEDED active Not Available Not Available No t Available oxycodone 5 mg tablet TAKE 1 TABLET BY MOUTH EVERY 6 HOURS NEEDED FOR MODERATE PAIN active Not Available Not Available No t Available duloxetine 30 mg capsule,del ayed release 12/08 completed Not Available Not Available Not Available duloxetine 60 mg capsule,del ayed release TK 1 C PO BID 12/08 completed Not Available Not Available Not Available anastrozole 12/08 completed Not Available Not Available Not Available Januvia 100 mg tablet active Not Available Not Available No t Available diclofenac 1 % topical gel APPLY TO THE AFFECTED AREA LIBERALLY THREE TIMES DAILY active Not Available Not Available No t Available Culturelle 15 billion cell sprinkle capsule TAKE 1 CAPSULE BY MOUTH EVERY DAY active Not Available Not Available No t Available Vitals Date Recorded Body temperature Respiratory rate Oxygen saturation Oxygen saturation in Arterial blood by Pulse oximetry Heart rate Systolic blood pressure Diastolic blood pressure Provider Name and Address Organization Details Last Updated DateTime 97.2 [degF] 18 /min 97 % 97 % 66 /min 124 mm[Hg] 62 mm[Hg] Not Available [facility] 19:55:03 Social History Question Answer Notes LastModified by Organizat ion Details LastModified Time Tobacco Smoking Status Former Smoker NIXON SOMMERS [address], [place], [address], [place] [facility] 12/08/2020 19:56:20 Do You Have An Advance Directive? Yes [employer] Information not available 12/08/2020 What Is Your Code Status? Full Code [employer] Information not available 12/08/2020 Within The Past 12 Months, Has It Happened That The Food You Bought Just Didn't Last And You Didn't Have Money To Get More. No [employer] Information not available 12/08/2020 Within The Past 12 Months, Have You Worried That Your Food Would Run Out Before You Got Money To Buy More. No [employer] Information not available 12/08/2020 Fall Risk: Do You Feel Unsteady When Standing Or Walking? No [employer] Information not available 12/08/2020 We Know That How And When People Interact With Friends And Family Can Be Very Different From Person To Person. How Often Do You Have The Opportunity To See Or Talk To People That You Care About And Feel Close To? (Ex: Talking To Friends On The Phone Or Visiting Friends Or Family Or Going To Religious Or Club Meetings) 3 Or 4 Times Per Week [employer] Information not available 12/08/2020 Excessive Alcohol Or Drug Use No [employer] Information not available 12/08/2020 We Know From Many Of Our Patients That Covering All Of Their Costs Can Be Difficult At Times. This Can Cause Stress And Impact Health. In The Past Year, Have You Been Unable To Get Any Of The Following When It Was Really Needed? No [employer] Information not available 12/08/2020 What Is Your Housing Situation Today? I Have Housing [employer] Information not available 12/08/2020 Would You Like Help Connecting To Resources? None [employer] Information not available 12/08/2020 How Much Tobacco Do You Smoke? 0.5 PPD [employer] Information not available 12/08/2020 How Many Years Have You Smoked Tobacco? 5 nadeem Information not available 12/08/2020 Sex: Unknown Functional Status None recorded. Mental Status None recorded. Family History Relationship Description Onset Age of this Age Resolved Age Notes LastModified by Organization Details LastModified Time Father Diabetes mellitus nadeem Not available 2020 19:59:02 Medical History Condition Response Coronary Artery Disease N COPD N Depression Y Diabetes Y Cancer Y Stroke N Asthma N High Cholesterol Y Pulmonary Embolism N Hypertension Y Kidney Disease N Gynecological HistoryNo gynecological history recorded. Obstetrics History GPAL:G 0 P 0 0 0 0 Past Encounters Encounter ID Performer Location Encounter Start Date Encounter Closed Date Diagnosis/Indication Diagnosis SNOMED-CT Code Diagnosis ICD10 Code Diagnosis Note [id number] [facility] [address] [place] [address] 12/08/2020 19:47:45 12/12/2020 00:44:51 Acute diarrhea 701884912 R19.7 Nausea 516871166 R11.0 Adverse re action to drug 51995431 T50.905A Health Concerns Section Related Observation LastModified by Organization Detai ls LastModified Time None Recorded Concern Status LastModified by Organization Details LastModified Time None Recorded Advance Directives Directive Y: Payers Insurance Date Sequence Insurance Name Policy Number Policy Jones Covered Member ID Jones Member ID Guarantor Name 12/12/2020 1 [place] [employer] Kayleen Wilson [id number] Kayleen Wilson 12/08/2020 1 *SELF PAY* Kayleen Wilson [id number] Kayleen Wilson 12/08/2020 1 [place] [employer] Kayleen Wilson [id number] Kayleen Wilson 01/16/2021 2 [employer] (MEDICARE SUPPLEMENT) Kayleen Wilson [id number] Kayleen Wilson Notes Date Note Type Note Provider Name and Address Organization Details Recorded Time 12/08/2020 text/html 75 y/o F with PMHx sig for left breast CA s/p lumpectomy on 11/22/20, depression, DM, HLD, HTN, and hypothyroidism, new to , who presents with complaints of nausea, vomiting, and diarrhea x3 days. Patient states she took her first and only dose of Anastrozole on Friday night and Friday morning started with profuse watery diarrhea every 15 minutes. She tried eating toast and a cristofer yesterday which she threw up and has been dry heaving since. She reports diarrhea slightly improved yesterday but began again today and states she is going every 30-45 minutes but less volume. Denies fever, chills, URI sxs, rash, hematemesis, hematochezia, melena, mucus in stool, abdominal pain or distention. Denies sick contacts or new foods. She has been tolerating sips of water and gatorade. Her oncologist prescribed Zofran and diphenoxylate-atr opine which have provided mild relief. Denies any antibiotic use in the last 90 days and denies ever having C diff. No recent travel. Marie Holguin, ARAM [address], [place], [address], [place] - [facility] 12/09/2020 11:06:45 OBGyn Episode No OBEpisode recorded.
--- OUTSIDE RECORDS SUMMARY | 2025-01-28 11:54 | XMS_ITS | Clinical Summary ---
Author Organization [facility] Address [address] [place] [phone] Phone Care Team Providers Care Career Coach Name Role Phone John Herrera NP Primary [...] Description 08/09/2025 11:00 AM EST Office Visit [facility] Hematology Oncology [address] [place] [phone] Ceasar Colon MD [address] [place] [address] Health Maintenance Due Date Last Done Comments [...] 10/14/2022 Hypertension/CHF/CAD Annual BMP Blood Test 08/09/2024 COVID-19 Vaccine (7 - Pfizer risk season) 2024 06/14/2024, 06/24/2023, 05/14/2022, Additional history exists Pneumococcal Vaccine: 50+ Years Completed 06/04/2021, 04/30/2020, 09/06/2016 Influenza Vaccine Completed 06/14/2024, , 05/14/2022, Additional history exists RSV Immunization Adult Patients Completed 06/14/2024 HIB Vaccines Aged Out No [...] age to complete this topic Meningococcal B Vaccine Aged Out No l onger eligible based on patient's age to complete this topic RSV Immunization Patients Under 20 months Aged Out No longer eligible based on patient's age to complete this topic Varicella Vaccines Aged Out No longer eligible based on patient's age to complete this topic Insurance MEDICARE [facility] Care Teams Career Coach Relationship Specialty Start Date End Date John Herrera NP [address] [facility] KELLEN Tucker PCP - General 05/30/23
--- OUTSIDE RECORDS SUMMARY | 2025-01-28 11:54 | XMS_ITS | Patient Health Record ---
Author Organization [facility] Address [address] [place] [address] Care Team Providers Care Hearing Care Professional Name Role Phone CHANDU HERRERA Primary Care Provider Taiwo Azar [phone] Allergies Allergen (clinical drug ingredient) Drug/Non Drug [...] EIA Reviewed date:03/15/2024 10:33:39 PM Interpretation: Performing Lab:[address] [address] Notes/Report: Giardia Ag Stool EIA SEE NOTE GIARDIA AG, EIA, STOOL Micro Number: [id number] Test Status: Final Specimen Source: Stool Specimen Quality: Adequate Giardia Result 1: Not Detected Reference Range: Not Detected NOTE: Due to intermittent shedding, one negative sample does not necessarily rule out the presence of a parasitic infection. THIS TEST WAS PERFORMED AT: [facility] [address] [place] [phone] DESTINY AUGUSTE MD Calprotectin, Fecal Reviewed date:03/06/2024 01:39:27 PM Interpretation: Performing Lab:[address] [address] Notes/Report: Calprotectin, Fecal 12 Reference Range: <50 [...] borderline values. THIS TEST WAS PERFORMED AT: [facility] [address] [place] [address] TERRELL YU MD,PHD,TRIXIE Ova and Parasite Reviewed date:03/15/2024 10:37:24 PM Interpretation: Performing Lab:[address] [address] Notes/Report: Ova and Parasite SEE NOTE OVA AND PARASITES, CONC AND PERM SMEAR Micro Number: [id number] Test Status: Final Specimen Source: Specimen Quality: [...] infection. For additional information, please refer to https://education.[employer].SPEEDELO/faq/F AQ203 (This link is being provided for informational/ educational purposes only.) THIS TEST WAS PERFORMED AT: [facility] [address] MORA LONDON MD GI PANEL Reviewed date:02/28/2024 01:39:07 PM Interpretation: Performing Lab:[address] [address] Notes/Report: Campylobacter Not Detected Not Detect. Plesiomonas [...] is performed by Multiplexed PCR, utilizing the [employer] Array. Complete Blood Count Auto Di ff Reviewed date:02/26/2024 11:50:55 PM Interpretation: Performing Lab:[facility], [address] [place] [phone] Notes/Report: White Blood Count 5.6 4.8-10.8 X10*3/uL [...] Reviewed date:02/26/2024 11:55:54 PM Interpretation: Performing Lab:[facility], [address] [place] [phone] Notes/Report: Erythrocyte Sedimentation Rate 26 0-20 MM/HR Patients with polycythemia and many hemoglobin abnormalities may have depressed sed rates whereas patients with anemia may have elevated sed rates. Liver Panel Reviewed date:02/26/2024 11:51:08 PM Interpretation: Performing Lab:[facility], [address] [place] [phone] Notes/Report: Bilirubin Total 0.7 0.0-1.0 mg/dL Bilirubin Direct 0.2 0.0-0.5 mg/dL Aspartate Amino Transferase 14 5-31 U/L Alanine Aminotransferase 10 0-31 U/L Total Protein 6.5 6.5-8.0 g/dL Albumin Level 3.9 3.5-5.0 g/dL Alkaline Phosphatase 77 39-117 U/L Basic Metabolic Panel Reviewed date:02/28/2024 01:38:31 PM Interpretation: Performing Lab:[address] [address] Notes/Report: Sodium 143 135-145 mmol/L Potassium 3.2 3.3-5.1 mmol/L Chloride 112 96-108 mmol/L Carbon Dioxide 24 22-29 mmol/L Anion Gap 10 12-20 Blood Urea Nitrogen 22 9-16 mg/dL Creatinine 0.94 0.5-1.4 mg/dL Estimated Glomerular Filt Rate 58 NOTE: For -Bangladeshi individuals, multiply the result by 1.210. Chronic Kidney Disease: Estimated GFR < 60 mL/min/1.73m2 Severe Kidney Disease: Estimated GFR < 15 mL/min/1.73m2 Glucose Random 121 60-115 mg/dL Calcium 9.7 8.4-10.2 mg/dL C Reactive Protein Reviewed date:02/26/2024 11:53:14 PM Interpretation: Performing Lab:[facility], [address] [place] [phone] Notes/Report: C Reactive Protein 0.13 < or = 0.50 mg/dL Immunoglobulin A Reviewed date:03/01/2024 11:35:45 PM Interpretation: Performing Lab:[facility], [address] [place] [phone] Notes/Report: Immunoglobulin A 247 70-320 mg/dL THIS TEST WAS PERFORMED AT: [facility] [address] [place] [phone] DESTINY AUGUSTE MD Transglutaminase Ab IgG Reviewed date:03/01/2024 11:34:46 PM Interpretation: Performing Lab:[facility], [address] [place] [phone] Notes/Report: Transglutaminase Ab IgG <1.0 Value Interpretation ----- <15.0 Antibody not detected > or = 15.0 Antibody detected THIS TEST WAS PERFORMED AT: [facility] [address] [place] [phone] DESTINY AUGUSTE MD Transglutaminase IgA Reviewed date:03/01/2024 11:34:36 PM Interpretation: Performing Lab:[facility], [address] [place] [phone] Notes/Report: Transglutaminase IgA <1.0 Value Interpretation ----- <15.0 Antibody not detected > or = 15.0 Antibody detected THIS TEST WAS PERFORMED AT: [facility] [address] [place] [phone] DESTINY AUGUSTE MD Gliadin Ab Panel Reviewed date:03/01/2024 11:34:29 PM Interpretation: Performing Lab:[facility], [address] [place] [phone] Notes/Report: Gliadin Deamidated IgA Ab <1.0 Value Interpretation ----- <15.0 Antibody not detected > or = 15.0 Antibody detected Gliadin Deamidated IgG Ab <1.0 Value Interpretation ----- <15.0 Antibody not detected > or = 15.0 Antibody detected THIS TEST WAS PERFORMED AT: [facility] [address] [place] [phone] DESTINY AUGUSTE MD Endomysial IgA rflx Titer Reviewed date:03/01/2024 11:34:22 PM Interpretation: Performing Lab:[facility], [address] [place] [phone] Notes/Report: Endomysial IgA Antibody Negative Negative THIS TEST WAS PERFORMED AT: [facility]/[address] [address] DARRELL WESTBROOK MD,PHD Endomysial Titer TNP CDiff Gene PCR Reviewed date:02/28/2024 01:04:04 PM Interpretation: Performing Lab:[facility], [address] [place] [phone] Notes/Report: CDiff Gene PCR NEGATIVE Negative If C. difficile strongly suspected despite one negative test, a second test may be sent vs. empiric treatment for C. difficile infection. Prothrombin Time INR Reviewed date:03/27/2024 09:51:04 PM Interpretation: Performing Lab:[facility], [address] [place] [phone] Notes/Report: Prothrombin Time 11.0 11.1-13.3 [employer] [...] Reviewed date:03/27/2024 09:50:56 PM Interpretation: Performing Lab:[facility], [address] [place] [phone] Notes/Report: Sodium 139 135-145 mmol/L Potassium 3.7 3.3-5.1 mmol/L Chloride 109 96-108 mmol/L Carbon Dioxide 20 22-29 mmol/L Anion Gap 14 12-20 Glucose, Whole Blood Reviewed date:03/27/2024 09:50:45 PM Interpretation: Performing Lab:[facility], [address] [place] [phone] Notes/Report: Glucose, Whole Blood 85 60-115 mg/dL METER # : [id number] Pathology Reviewed date:08/10/2024 10:51:18 AM Interpretation: Performing Lab:[facility], [address] [place] [phone] Notes/Report: -- ---- Name: Nancy Wilson Age/Sex: 78/F : 1945 Unit#: [id number] Attend Dr: Taiwo Mcintosh MD Re03/26/24 Status : [facility] Location: [place] Disch: -- ---- SPEC : [id number] RECD : 03/26/24 STATUS: ELVI CHAVEZ NUM: [id number] [place]: 03/26/24-[address] [facility] [address]: Taiwo Mcintosh MD ENTERED: 03/26/24 27 SP TYPE: Surgical OTHR DR: Chandu Herrera [facility] ORDERED: HE Stain/12 , Gross Micro L4/4, [...] Nancy Wilson Age/Sex: 78/F : 1945 Unit#: [id number] Attend Dr: Taiwo Mcintosh MD Re03/26/24 Status : [facility] Location: [place] Disch: -- ---- SPEC : [id number] RECD : 03/26/24-1316 STATUS: IVANShruthi SCOTT NUM: [id number] [place]: 03/26/24-[address] [facility] [address]: Taiwo Mcintosh MD ENTERED: 03/26/24- 27 SP TYPE: Surgical OTHR DR: Chandu Herrera [facility] ORDERED: HE Stain/12 , Gross Micro L4/4, [...] A1 and B1. Copies To: Chandu Herrera [facility] Primary Care, [address] [place], [place] [id number] Taiwo Mcintosh MD [facility] [address] [place] [address] [address] [place], [place] [id number] -- ---- Signed (signature on file) Mary Ann Hughes 03/29/24 1500 (signature on file) Stefan Mcpherson MD 03/30/24 1050 -- ---- END OF REPORT Reason For Referral No Information Medications Medication SIG (Take, Route, Frequency, Duration) Notes Start Date End Date Status Omeprazole 20 MG TAKE 1 CAPSULE BY [facility] EVERY MORNING for 30 Active Imodium [...] Problem Status W/U Status Risk Notes Problem [id number] Encounter for screening for malignant neoplasm of colon (Z12.11) Active confirmed Problem Diarrhea (31489603) Diarrhea (R19.7) Active con firmed Problem Weight loss (603432499) Weight loss (R63.4) Active confirmed Problem Diverticular disease of colon (534163987) Diverticulosis of large intestine without perforation or abscess without bleeding (K57.30) Active confirmed Problem Nausea (362472932) Nausea (R11.0) Active confir med Problem [id number] Preprocedural examination (Z01.818) Active confirmed Problem 07763276 Hypertension, unspecified type (I10) Active confirmed Problem 723206352 Encntr long-term NSAID use (Z79.1) Active confirmed Problem Gastroesophageal reflux disease (disorder) (388819775) Chronic GERD (K21.9) Active confirmed Vital Signs Temperature 96.9 degrees Fahrenheit 02/25/2024 Blood pressure diastolic 00 mm Hg 08/10/2024 Height 61 in 08/10/2024 Blood pressure systolic 00 mm Hg 08/10/2024 Weight 174 lbs 08/10/2024 BMI 32.87 kg/m2 08/10/2024 Encounters Encounter Location Date Provider Diagnosis [facility] Out[facility] [address] [place] [id number] 03/26/2024 Taiwo Mcintosh Diarrhea R19.7 ; Dallin ght loss R63.4 ; Diverticulosis of large intestine without perforation or abscess without bleeding K57.30 ; Other hemorrhoids K64.8 ; Nausea R11.0 and Hiatal hernia K44.9 [facility] [address] [place] [phone] 02/25/2024 Taiwo Mcintosh Nausea R11.0 ; Diarr hea R19.7 and Weight loss R63.4 [facility] [address] [place] [phone] 08/10/2024 Taiwo Mcnitosh Diarrhea R19.7 ; Yonis sea R11.0 and Chronic GERD K21.9 [facility] [address] [place] [address] 02/26/2024 Taiwo Mcintosh [facility] [address] [address] 03/29/2024 Taiwo Mcintosh Assessments Encounter Date Diagnosis [...] OF [place] [address] [place] [address] [id number] NANCY WILSON Self - patient is the insured [employer] [address] [address] [place] [address] [id number] NANCY WILSON Self - patient is the insured Medical (General) History Medical History History ICD Code Denies UT,CVA,Lung disease,renal disease IDDM Hypertension Kidney stones Negative [...]
--- OUTSIDE RECORDS SUMMARY | 2025-01-28 11:54 | XMS_ITS | Clinical Summary ---
Author Organization [facility] Address [address] [facility] [address] [place] [address] Phone Care Team Providers Care Rattle Leak And Squeak Repairer Name Role Phone John Herrera NP Primary Care Provider [phone] Allergies Active Allergy Reactions Criticality Noted Date [...] pain 01/18/2021 Type 2 diabetes mellitus 01/18/2021 Family History Medical History Relation Comments Diabetes [...] Due Date Last Done Comments Pneumococcal Vaccine: 50+ Years (1 of 2 - PCV) 1966 Diabetes: Ophthalmology Exam 10/22/2020 Diabetes: Pedal Pulse Checked 10/22/2020 Diabetes: Sensory Foot Exam 10/22/2020 Diabetes: Visual Foot Exam 10/22/2020 Diabetes: Hemoglobin A1C 01/12/2023 023, 01/22/2022, 01/19/2021 Influenza Vaccine (Season Ended) 2025 Hepatitis B Vaccine Aged Out No longe [...] PM EST) Hemoglobin A1C 5.4 (4.0-5.6) % [facility] Comment: MONITORING: In known diabetic patients, hemoglobin A1c targets should be discussed with health care provider. DIAGNOSTIC USE: ??The [place] Diabetes Association (ADA) and the World Health [...] Supplement 1 Testing performed or reported by [facility], a Service of [facility], [address] [place] [address] Niall Pinto MD, Rn Orthopaedic [facility]# [id number] Blood (Blood, Venous) 10/14/2022 4:03 PM EST 10/14/2022 4:05 PM EST us Karson Law MD LAB BLOOD ORDERABLES Carol rasmussen Result [facility] from Last 3 Months or Most Recently Relevant to Health Maintenance Insurance [employer] Medicare Human Medicare Care Teams Rattle Leak And Squeak Repairer Relationship Specialty Start Date End Date John Herrera NP [address] [place], [place] [phone] PCP - General Nurse Practitioner 09/05/21
--- OUTSIDE RECORDS SUMMARY | 2025-01-28 11:54 | XMS_ITS | Data Portability ---
Author Organization [facility] Address [address] [place] [address] [address] [place] [address] Care Team Providers Care Hand Candy Cutter Name Role Phone CHANDU CHISHOLM Primary Care [...] She wishes to proceed. 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 [...] lumbar epidural injection before her trip to [place] next year ora Not available 08/23/2024 11:41:24 [...] lidocaine 5 % topical patch 2023 024 [id number], [address] [place], [place], [phone], 08/16/2024 10:38:29 Patient TargetsNo targets recorded. Patient Instructions Encounter Date Encounter Id Patient Instructions Last Modified By Organization Details Last Modified Time 05/26/2024 [id number] She was advised against bed rest lasting longer than four days and to continue activities as tolerated. [email or web address] Not available 05/26/2024 15:26:50 06/01/2024 [id number] She was advised against bed rest lasting longer than four days and to continue activities as tolerated. [email or web address] Not available 06/01/2024 11:30:11 12/07/2024 [id number] She was advised against bed rest lasting longer than four days and to continue activities as tolerated. [email or web address] Not available 12/07/2024 10:18:55 Reason for Referral None Reported. Problems Name Problem SNOMED Code Status Onset Date Resolution Date Notes Provider Name and Address Organization Details Recorded Time Degeneratio n of lumbar interverteb ral disc 70216977 Completed 04/29/2019 Omar mayberry MD [address] , [address], [place], [address], [place] [facility] 15:16:59 Degeneratio n of cervical interverteb ral disc 42984486 Active Omar mayberry MD [address] , [address], [place], [address], [place] [facility] 9 15:16:55 Muscle pain 69159876 Lola mayberry MD [address] , [address], [place], [address], [place] [facility] 9 15:17:16 Cervical spondylosis without myelopathy 576247428 Active Omar mayberry MD [address] , [address], [place], [address], [place] [facility] 9 15:17:31 Degeneratio n of thoracic interverteb ral disc 13787181 Lola mayberry MD [address] , [address], [place], [address], [place] [facility] 9 15:17:48 Osteoarthri tis of knee 575577964 Lola mayberry MD [address] , [address], [place], [address], [place] [facility] 15:53:33 Lumbosacral radiculopat hy 6084487 Active 2023 Omar mayberry MD [address] , [address], [place], [address], [place] [facility] 4 10:50:13 Problem Notes None recorded. Procedures Surgical History Date Name Laterality Status Provider Name and Address Organization Details Recorded Time 12/08/19 25 Lumbar Epidural steroid injection under fluoroscopic guidance completed Omar Coulter MD [address] , [address], [place], [address], [place] [facility] 12/07/2024 10:18:43 06/23/20 24 Lumbar Epidural steroid injection under fluoroscopic guidance completed Omar Coulter MD [address] , [address], [place], [address], [place] [facility] 06/23/2024 10:39:49 06/01/20 24 Fluoroscopic Guided Lumbar Facet Steroid Injections of levels completed Omar Coulter MD [address] , [address], [place], [address], [place] [facility] 06/01/2024 11:29:39 01/27/20 24 Lumbar Epidural steroid injection under fluoroscopic guidance completed Omar Coulter MD [address] , [address], [place], [address], [place] [facility] 01/27/2024 10:34:03 10/28/19 24 Lumbar Epidural steroid injection under fluoroscopic guidance completed Omar Coulter MD [address] , [address], [place], [address], [place] [facility] 10/28/2023 10:49:28 04/22/20 23 Lumbar Epidural steroid injection under fluoroscopic guidance completed Omar Coulter MD [address] , [address], [place], [address], [place] [facility] 04/22/2023 11:45:19 05/28/20 22 Lumbar Epidural steroid injection under fluoroscopic guidance completed Omar Coulter MD [address] , [address], [place], [address], [place] [facility] 05/29/2022 14:22:44 01/02/20 22 Lumbar Epidural steroid injection under fluoroscopic guidance completed Omar Coulter MD [address] , [address], [place], [address], [place] [facility] 01/01/2022 14:29:09 09/18/20 21 Lumbar Epidural steroid injection under fluoroscopic guidance completed Omar Coulter MD [address] , [address], [place], [address], [place] [facility] 09/19/2021 12:19:14 02/22/20 21 Intra-articular Knee Steroid Injection completed Omar Coulter MD [address] , [address], [place], [address], [place] [facility] 02/22/2021 14:06:45 02/16/20 21 Intra-articular Knee Steroid Injection completed Omar Coulter MD [address] , [address], [place], [address], [place] [facility] 02/15/2021 16:18:43 09/27/19 21 Thoracic Epidural Steroid injection under fluroscopic guidance completed Omar Coulter MD [address] , [address], [place], [address], [place] [facility] 09/27/2020 11:32:52 06/28/20 20 Trigger Point Injections under ultrasound guidance completed Omar Coulter MD [address] , [address], [place], [address], [place] [facility] 06/28/2020 14:43:13 02/10/20 20 Trigger Point Injections under ultrasound guidance completed Omar Coultre MD [address] , [address], [place], [address], [place] [facility] 02/10/2020 13:40:00 11/15/19 20 Trigger Point Injections under ultrasound guidance completed Omar Coulter MD [address] , [address], [place], [address], [place] [facility] 11/19/2019 09:42:53 10/25/19 20 Trigger Point Injections under ultrasound guidance completed Omar Coulter MD [address] [facility] , [address], [place], [address], [place] [facility] 10/25/2019 14:53:01 06/23/20 19 Trigger Point Injections under ultrasound guidance completed Omar Coulter MD [address] [facility] , [address], [place], [address], [place] [facility] 07/05/2019 11:23:51 06/07/20 19 Trigger Point Injections under ultrasound guidance completed Omar Coulter MD [address] [facility] , [address], [place], [address], [place] [facility] 06/07/2019 15:03:55 05/18/20 19 Trigger Point Injections under ultrasound guidance completed Omar Coulter MD [address] [facility] , [address], [place], [address], [place] [facility] 05/19/2019 [...] knee replacement completed Omar Coulter MD [address] [facility] , [address], [place], [address], [place] [facility] 10/28/2023 10:49:05 Imaging Results None recorded. Procedure Notes None recorded. Medical Equipment None Reported. Allergies Allergen ID Allergen Name Allergen Category Reaction Reaction Severity Criticality Documentation Date Start Date Code Code System Note Provider Name and Address Organization Details Recorded Time 88418 Product containin g penicilli n (product) medicatio n facial swelling itching Not available Not available Not available 04/29/2019 89409 8001 SNOMED Msisy trimble [place] [facility] 9 13:15:37 37877 Cipro medicatio n facial swelling itching Not available Not available Not available 04/29/201996576 3 RxNorm Missy trimble [place] [facility] 9 13:15:56 88252 Substance with sulfonami de structure and antibacte rial mechanism of action (substanc e) medicatio n facial swelling severe Not available 02/15/2021 23292 8003 SNOMED Tamiko trimble [place] [facility] 1 15:09:34 20757 Keflex medicatio n facial swelling severe Not available 02/15/202119181 7 RxNorm Tamiko Robbinsrochelle trimble [place] [facility] 15:09:55 04612 Non-stero idal anti-infl ammatory agent (product) medicatio n Not available Not available unabletoasse ss 05/28/2022 44251 005 SNOMED per renal Thenu Juice mayberry MD [address] [facility] , [address], [place], [address] [facility] [place] [facility] 2 13:18:13 15964 hydromorp omid medicatio n vomiting severe low 06/09/20232022 3423 RxNorm Dee Dee trimble [place] [facility] 3 11:42:51 99624 tramadol medicatio n vomiting severe low 06/09/20232022 04066 RxNorm Dee Dee trimble [place] [facility] 3 11:43:26 79508 meloxicam medicatio n Not available Not available Not available 01/27/2024 00983 RxNorm Koki trimble [place] [facility] [...] Available Not Available Not Available Fluzone High-Dose 0513-8884 (PF) 180 mcg/0.5 mL intramuscul ar syringe [...] 9 206 mm[Hg] 84 mm[Hg] Koki Hollins [facility] 4 14:39:48 Date Recorded Body height Heart rate Oxygen saturation Oxygen saturation in Arterial blood by Pulse oximetry Systolic blood pressure Diastolic blood pressure Provider Name and Address Organization Details Last Updated DateTime 4 154.94 cm 61 /min 99 % 99 % 175 mm[Hg] 72 mm[Hg] Joyce Barney [place] [facility] 4 11:00:27 Date Recorded [...] % 175 mm[Hg] 58 mm[Hg] Joyce Barney [place] [facility] 5 09:02:02 Social History Question Answer Notes LastModified by Organizat ion Details LastModified Time Tobacco Smoking Status Former Smoker Quit x 50 Not Available [facility] 07/07/2020 03:16:09 What Is Your Level Of Alcohol Consumption? Occasional [id number] Information not available 07/07/2020 Are You Currently Employed? Yes [id number] Information not available 07/07/2020 Which Illicit Or Recreational Drugs Have You Used? 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 Alone Information not available 04/29/2019 Marital Status Informatio n not available 04/29/2019 How Many Years Have You Smoked Tobacco? 3 [id number] Information not available 07/07/2020 Sex: Unknown Functional [...] SNOMED-CT Code Diagnosis ICD10 Code Diagnosis Note [id number] Omar Coulter MD PAIN OFFICE [address] [place] [address] 04/29/2019 13:08:47 04/29/2019 15:48:56 Muscle pain 76062777 M79.10 Degenerati on of cervical intervertebral disc 54385355 M50.30 Cervical s pondylosis without myelopathy 732500974 M47.812 Degenerati on of thoracic intervertebral disc 57851547 M51.34 65720 Omar Coulter MD PAIN OFFICE [address] [place] [address] 05/18/2019 13:05:28 05/19/2019 09:47:26 Muscle pain 93729799 M79.10 Degenerati on of cervical intervertebral disc 29652680 M50.30 Cervical s pondylosis without myelopathy 205092676 M47.812 Degenerati on of thoracic intervertebral disc 67781487 M51.34 27177 Omar Coulter MD PAIN OFFICE [address] [place] [address] 06/07/2019 12:59:28 06/07/2019 15:14:41 Muscle pain 82541482 M79.10 Degenerati on of cervical intervertebral disc 79501160 M50.30 Cervical s pondylosis without myelopathy 374075874 M47.812 Degenerati on of thoracic intervertebral disc 03570694 M51.34 24460 Omar Coulter MD [facility] [address] [facility] [place] [address] 06/23/2019 15:13:29 07/05/2019 11:29:45 Muscle pain 44981796 M79.10 Degenerati on of cervical intervertebral disc 72114180 M50.30 Cervical s pondylosis without myelopathy 480705443 M47.812 Degenerati on of thoracic intervertebral disc 72325046 M51.34 81608 Omar Coulter MD PAIN OFFICE [address] [facility] [place] [address] 10/25/2019 14:17:47 10/25/2019 14:54:29 Muscle pain 44024273 M79.10 Degenerati on of cervical intervertebral disc 41654258 M50.30 Cervical s pondylosis without myelopathy 313180723 M47.812 Degenerati on of thoracic intervertebral disc 62807952 M51.34 40198 Omar Coulter MD PAIN OFFICE [address] [facility] [place] [address] 11/15/2019 14:20:57 11/19/2019 09:46:43 Muscle pain 58807126 M79.18 Degenerati on of cervical intervertebral disc 04987274 M50.30 Cervical s pondylosis without myelopathy 818518180 M47.812 Degenerati on of thoracic intervertebral disc 27291944 M51.34 10794 Omar Coulter MD PAIN OFFICE [address] [place] [address] 01/25/2020 10:30:04 02/10/2020 10:22:36 Muscle pain 65040884 M79.10 Degenerati on of cervical intervertebral disc 85866839 M50.30 Cervical s pondylosis without myelopathy 682035431 M47.812 Degenerati on of thoracic intervertebral disc 60594594 M51.34 06335 Omar Coultre MD PAIN OFFICE [address] [place] [address] 02/10/2020 13:00:54 02/10/2020 13:45:55 Muscle pain 46857302 M79.18 Degenerati on of cervical intervertebral disc 08386899 M50.30 Cervical s pondylosis without myelopathy 451734833 M47.812 Degenerati on of thoracic intervertebral disc 24706006 M51.34 70201 Omar Coulter MD PAIN OFFICE [address] [facility] [place] [address] 05/18/2020 13:32:35 05/18/2020 15:44:35 Muscle pain 80576954 M79.10 Degenerati on of cervical intervertebral disc 76699439 M50.30 Cervical s pondylosis without myelopathy 365520363 M47.812 Degenerati on of thoracic intervertebral disc 06885648 M51.34 48353 Omar Coulter MD PAIN OFFICE [address] [place] [address] [place] [address] 06/28/2020 12:49:27 06/28/2020 15:28:04 Muscle pain 87787058 M79.18 Degenerati on of cervical intervertebral disc 52463920 M50.30 Cervical s pondylosis without myelopathy 831291431 M47.812 Degenerati on of thoracic intervertebral disc 84868700 M51.34 44465 Omar Coulter MD PAIN OFFICE [address] [facility] [place] [address] 09/20/2020 08:42:02 09/20/2020 11:18:24 Thoracic radiculopathy 40434187 M54.14 Muscle pain 96249571 M79 .10 Degenerati on of cervical intervertebral disc 64789483 M50.30 Cervical s pondylosis without myelopathy 985805497 M47.812 Degenerati on of thoracic intervertebral disc 93031789 M51.34 69679 Omar Coulter MD PAIN OFFICE [address] [facility] [place] [address] 09/27/2020 10:02:38 09/27/2020 13:59:25 Thoracic radiculopathy 59523369 M54.14 Muscle pain 98143996 M79 .10 Degenerati on of cervical intervertebral disc 42718436 M50.30 Cervical s pondylosis without myelopathy 741648291 M47.812 Degenerati on of thoracic intervertebral disc 00826616 M51.34 45467 Omar Coulter MD PAIN OFFICE [address] [place] [address] 10/26/2020 15:31:42 10/26/2020 15:51:53 Thoracic radiculopathy 17356289 M54.14 Muscle pain 64207130 M79 .10 Degenerati on of cervical intervertebral disc 52418683 M50.30 Cervical s pondylosis without myelopathy 491115887 M47.812 Degenerati on of thoracic intervertebral disc 13852012 M51.34 10844 Omar Coulter MD PAIN OFFICE [address] [place] [address] 02/05/2021 10:22:28 02/05/2021 15:56:53 Osteoarthritis of knee 881853969 M17.9 57465 Omar Coulter MD PAIN OFFICE [address] [address] 02/15/2021 14:59:34 02/15/2021 16:22:18 Osteoarthritis of knee 100575761 M17.0 17680 Omar Coulter MD [facility] PA[facility] [address] [address] 02/21/2021 14:42:44 02/22/2021 14:39:41 Osteoarthritis of knee 762180270 M17.0 58661 Omar Coulter MD [facility] PA[facility] [address] [address] 06/08/2021 08:59:50 06/15/2021 10:30:41 Osteoarthritis of hip 930442348 M16.9 Arthropath y of lumbar facet joint 845347184 M46.96 94290 Omar Coulter MD PAIN OFFICE [address] [address] 09/18/2021 09:27:54 09/19/2021 12:22:33 Osteoarthritis of hip 983178059 M16.9 Arthropath y of lumbar facet joint 061448786 M46.96 Lumbosacra l radiculopathy 5286336 M54.17 33720 Omar Coulter MD [facility] PAIN OFF[facility] [address] [place] [address] 10/18/2021 11:30:20 10/18/2021 11:59:09 Osteoarthritis of hip 068177392 M16.9 Arthropath y of lumbar facet joint 755915874 M46.96 Lumbosacra l radiculopathy 2065094 M54.17 51344 Omar Coulter MD [facility] [address] [place] [address] 01/01/2022 12:59:18 01/01/2022 14:31:36 Osteoarthritis of hip 401818864 M16.9 Arthropath y of lumbar facet joint 907537371 M46.96 Lumbosacra l radiculopathy 6768977 M54.17 74940 Omar Coulter MD [facility] PA[facility] [address] [facility] [place] [address] 05/28/2022 13:05:44 05/29/2022 14:25:07 Osteoarthritis of hip 942461898 M16.9 Arthropath y of lumbar facet joint 913942139 M46.96 Lumbosacra l radiculopathy 2071332 M54.17 97331 Omar Coulter MD [facility] PA[facility] [address] [place] [address] 04/22/2023 11:14:39 04/22/2023 14:42:39 Osteoarthritis of hip 915561331 M16.9 Arthropath y of lumbar facet joint 803271006 M46.96 Lumbosacra l radiculopathy 2402927 M54.17 22607 Omar Coulter MD [facility] PA[facility] [address] [facility] [address] 06/09/2023 11:18:38 06/09/2023 11:58:43 Osteoarthritis of hip 793924241 M16.9 Arthropath y of lumbar facet joint 655553763 M46.96 Lumbosacra l radiculopathy 1222023 M54.17 12016 Omar Coulter MD [facility] PA[facility] [address] [facility] [place] [address] 10/28/2023 09:54:59 10/28/2023 14:24:20 Lumbosacral radiculopathy 3158779 M54.17 Degenerati on of lumbar intervertebral disc 50691200 M51.36 88412 Omar Coulter MD [facility] PA[facility] [address] [facility] [place] [address] 01/27/2024 09:58:44 01/27/2024 10:59:54 Lumbosacral radiculopathy 1643423 M54.17 Degenerati on of lumbar intervertebral disc 27492723 M51.36 11095 Omar Coulter MD [facility] PAIN OFF[facility] [address] [facility] [place] [address] 05/26/2024 14:28:52 05/26/2024 15:33:11 Lumbosacral spondylosis without myelopathy 97071174 M47.817 48399 Omar Coulter MD [facility] PAIN OFFICE [address] [facility] [place] [address] 06/01/2024 10:50:13 06/01/2024 16:05:47 Lumbosacral spondylosis without myelopathy 30887437 M47.817 59450 Omar Coulter MD [facility] PA[facility] OFF[facility] [address] [facility] [place] [address] 06/23/2024 10:08:25 06/24/2024 08:51:47 Lumbosacral radiculopathy 4630446 M54.17 Degenerati on of lumbar intervertebral disc 18366222 M51.362 00994 Omar Coulter MD [facility] PAIN OFF[facility] [address] [address] 08/16/2024 09:50:57 08/23/2024 11:42:01 Lumbosacral radiculopathy 9569004 M54.17 Neuropathy due to diabetes mellitus 463669953 E11.40 Osteoarthritis of hip 23 0296808 M16.9 Arthropath y of lumbar facet joint 899023738 M46.96 40170 Omar Coulter MD [facility] PA[facility] [address] [place] [address] 12/07/2024 08:57:10 12/07/2024 16:05:22 Lumbosacral radiculopathy 5519777 M54.17 Degenerati on of lumbar intervertebral disc 95635821 M51.362 Health Concerns Section Related Observation LastModified by Organization Detai ls LastModified Time None Recorded Concern Status LastModified by Organization Details LastModified Time None Recorded Advance Directives Directive None Recorded Payers Encounter Date Sequence Insurance Name Policy Number Policy Jones Covered Member ID Jones Member ID Guarantor Name 05/26/2024 2 [employer] (MEDICARE SUPPLEMENT) Kayleen Adrianoit [id number] Kayleen Viramontest 05/26/2024 1 [place] [place] Kayleen Zulma Branford [id number] Kayleen Adrianoit 06/01/2024 2 [employer] (MEDICARE SUPPLEMENT) Kayleen Adrianoit [id number] Kayleen Adrianoit 06/01/2024 1 [place] [place] Kayleen Zulma Branford [id number] Kayleen Adrianoit 06/23/2024 2 [employer] (MEDICARE SUPPLEMENT) Kayleen Adrianoit [id number] Kayleen Adrianoit 06/23/2024 1 [place] [employer] Kayleen Zulma Branford [id number] 4 Kayleen Steve 08/16/2024 2 [employer] (MEDICARE SUPPLEMENT) Kayleen Branford [id number] Kayleen Branford 08/16/2024 1 [place] [employer] Kayleen Zulma Branford [id number] 4 Kayleen Adrianoit 12/07/2024 2 [employer] (MEDICARE SUPPLEMENT) Kayleen Wilson [id number] Kayleen Adrianoit 12/07/2024 1 [place] [employer] Kayleen Wilson [id number] 4 Kayleen Wilson Notes Date Note Type [...] She is going on a trip to [facility] and then to [place] next year and wants to be able to walk. 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 She states she has been depressed and does not go out due to pain. She has no radiating pain presently and has no history of bladder or bowel incontinence. Omar Coulter MD [address] [facility] , [address], [place], [address], [place] [facility] 05/26/2024 15:45:10 06/01/2024 text/html She is here for a left lumbar facet joint injection under fluoroscopic guidance Omar Coulter MD [address] [facility] , [address], [place], [address], [place] [facility] 06/01/2024 16:09:36 06/23/2024 text/html She is here for a lumbar epidural steroid injection under fluoroscopic guidance. Omar Coulter MD [address] [facility] , [address], [place], [address], [facility] - Pain Management 06/24/2024 08:54:02 [...] done next year. She has been to [facility] and states she had a good trip. She is having severe pain in her right mid back .The facet joint injection did not help. She has not trialed lidocaine patches. She has seen her PCP for the pain. Omar Coulter MD [address] [facility] , [address], [place], [address], [facility] Pain Management 08/23/2024 11:42:41 12/07/2024 text/html She is here for a lumbar epidural steroid injection under fluoroscopic guidance. Omar Coulter MD [address] [facility] , [address], [place], [address], [facility] Pain Management 12/07/2024 16:08:18 OBGyn Episode No OBEpisode recorded.
--- OUTSIDE RECORDS SUMMARY | 2025-01-28 11:54 | XMS_ITS ---
Author Organization [facility] Address [address] [place] [address] Care Team Providers Care Hospice Chaplain Name Role Phone CAHNDU CHISHOLM Primary Care Provider Taiwo Azar [phone] Encounters Encounter Location Date Provider Diagnosis [facility] [address] [place] [address] 03/29/2024 Taiwo Mcintosh Plan Of Treatment No Information Progress Notes * NANCY VORA CDOB: [birth year] (78 yo F)Acc No.[id number]:03/29/2024 Patient:?NANCY VORA :1945???Age:78 Y???Sex:Female Address:[address] , [place] [address] * true * Date:? Generated for Wangi argentina/Manolo/eTransmitting on:?01/28/2025 11:54 AM EDT
== END 2025-01-28 11:26 | disposition home or self-care (01) ==
LOC: HO.SH 11:25
PROVIDERS: Visit Provider Nurse Practitioner Family
DX: Z13.89 Encounter for screening for other disorder (principal)

== ENCOUNTER 2025-02-02 09:00 | Outpatient (RCR) | payer MEDICARE, OTHER, SELFPAY ==
--- NOTE | 2025-01-28 11:08 | MHC.PT.EP ---
[facility] [place] Office [place] Office [address] [place] [address] [phone] F: [phone] F: [phone] F: [phone] F: [phone] Physical Therapy Plan of Care Date of Evaluation: 01/28/25 Date of Surgery: n/a Diagnosis: dorsalgia Assessment: Patient is a 79 year old female presenting to PT with complaints of pain in her back. Pt reports onset of pain began years ago due to insidious onset. She presents today with impairments in pain, ROM, tenderness to palpation. 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 Pt expresses intermediate goal of reducing pain, and is motivated to work towards this in PT. Clinical presentation today is most consistent with signs and sx associated with back pain and pt will benefit from skilled PT 2 week x 4 weeks to address the following problems and impairments noted upon evaluation: pain, ROM, tenderness to palpation. These problems limit the patient with the following functional activities: bending, ADLs, work. The prescribed treatment plan of care is medically necessary. Co-morbidities of hx breast cancer 4 years ago, DM, depression were identified and taken into considerations of plan of care. Pt was educated on HEP, role of PT, prognosis, POC. Frequency and Duration: The patient will be seen 2 x week x 4 weeks Short Term Goals: Pt will demonstrate pain at rest <5/10 in 2 weeks. Pt will demonstrate ability to move through available lumbar range with min to no pain in 2 weeks. Pt will demonstrate improved hip MMT strength by 1/3 grade in 2 weeks. Long-Term Goals: Pt will demonstrate improved Leonardo score by 10% in 4 weeks for improved functional mobility. Pt will demonstrate ability to complete ADLs with min to no pain in 4 weeks for return to PLOF. Pt will demonstrate ability to work with min to no pain in 4 weeks for improved tolerance to work. Treatment Plan: Modalities to reduce pain, spasms and effusion. Manual therapy to restore motion and function. Therapeutic exercise to improve strength and flexibility. Neuromuscular re-education for posture and balance. Therapeutic activities to return to functional activities of daily living. Electronically signed by: Caroline Vibha, PT, DPT, ATC Please sign and return to therapist. Thank you for your referral.
--- NOTE | 2025-02-08 10:03 | MHC.PT.DC ---
[facility] [place] [facility] [place] [facility] [place] [facility] [address] Yolis Mtz [address] [phone] F: [phone] F: [phone] F: [phone] F: [phone] Physical Therapy Discharge Report Diagnosis: dorsalgia Date of Surgery: n/a Date of Evaluation: 01/28/25 Date of Discharge: 02/08/25 Treatments to Date: 3 Cancellations to Date: No Shows to Date: Discharge Status: Patient Elected to Stop Discharge Summary: Pt presented to her appointment stating she would like to be d/c as this is not helping her pain. Therefore pt d/c per her request. Electronically signed by: Caroline Dunne, PT, DPT, ATC Please sign and return to therapist. Thank you for your referral.
== END 2025-02-08 10:03 | disposition home or self-care (01) ==
LOC: HO.PTCHIC 09:00
PROVIDERS: PCP Nurse Practitioner Family; Visit Provider Nurse Practitioner Family
DX: M54.9 Dorsalgia, unspecified (principal); G89.29 Other chronic pain
CPT/HCPCS: 97110; 97162

== ENCOUNTER 2025-02-22 12:07 | Outpatient (REF) | payer SELFPAY ==
--- OUTSIDE RECORDS SUMMARY | 2025-02-22 13:33 | XMS_ITS | Clinical Summary ---
Author Organization [facility] Address [address] [place] [address] Care Team Providers Care Vertical Roll Operator Name Role Phone John Herrera Primary Care Provider [phone] Allergies Active Allergy Reactions Criticality Noted Date [...] - 1-dose 75+ series) 2022 Influenza Vaccine (Season Ended) 2025 Hepatitis B Vaccines Aged Out No long er eligible based on patient's age to complete this topic RSV Ped < 20 months Aged Out No longe r eligible based on patient's age to complete this topic Care Teams Vertical Roll Operator Relationship Specialty Start Date End Date John Herrera [address] [facility] [place] [address] PCP - General Family Medicine 05/30/23
== END 2025-02-22 12:08 | disposition home or self-care (01) ==
LOC: HO.HAP 12:07
PROVIDERS: Visit Provider Nurse Practitioner Family
DX: Z46.1 Encounter for fitting and adjustment of hearing aid (principal); H90.3 Sensorineural hearing loss, bilateral
CPT/HCPCS: 92593

== ENCOUNTER 2025-03-03 14:49 | Outpatient (REF) | payer SELFPAY ==
--- OUTSIDE RECORDS SUMMARY | 2025-03-03 17:24 | XMS_ITS | Clinical Summary ---
Author Organization [facility] Address [address] [place] [address] Care Team Providers Care Senior Ux Designer Name Role Phone John Herrera Primary Care Provider [phone] Allergies Active Allergy Reactions Criticality Noted Date [...] age to complete this topic Care Teams Senior Ux Designer Relationship Specialty Start Date End Date Jhon Herrera [address] [facility] [place] [address] PCP - General Family Medicine 05/30/23
== END 2025-03-03 14:50 | disposition home or self-care (01) ==
LOC: HO.HAP 14:49
PROVIDERS: Visit Provider Nurse Practitioner Family
DX: Z13.89 Encounter for screening for other disorder (principal)

== ENCOUNTER 2025-03-03 15:41 | Outpatient (AMB) | payer MEDICARE, OTHER, SELFPAY ==
[2025-03-03 15:45] VITALS: BP 128/86; PULSE 62; TEMP 36.7; O2SAT 95; BMI 33.0
--- NOTE | 2025-03-03 15:45 | MHC.OFFWIV ---
Intake Vital Signs 03/03/25 15:45 Height 5 ft 1 in Weight 174 lb 8 oz BMI 33.0 BP 128/86 Blood Pressure Location Rt brachial Position Sitting Pulse 62 Pulse Source Pulse Oximeter Temp 98.0 F Temp Source Oral Pulse Oximetry (%) 95 Oxygen Delivery Method Room Air Intake Visit Reasons: EP bilat ear blockage Intake Note: Pt presents to the office today for c/o bilateral ear blockage. Patient Tobacco Use Status: Former Tobacco user Allergies cephalexin [From Keflex] Allergy (Severe, Verified 03/03/25 15:53) Swelling ciprofloxacin [From Cipro] Allergy (Severe, Verified 03/03/25 15:53) eye swelling penicillin G Allergy (Severe, Verified 03/03/25 15:53) Angioedema Penicillins Allergy (Severe, Verified 03/03/25 15:53) ANGIOEDEMA doxycycline Allergy (Intermediate, Verified 03/03/25 15:53) Vomiting gabapentin Allergy (Verified 03/03/25 15:53) Unknown meloxicam Allergy (Verified 03/03/25 15:53) Unknown NSAIDS (Non-Steroidal Anti-Inflamma Adverse Reaction (Verified 03/03/25 15:53) Unknown Sulfacet-R Allergy (Severe, Uncoded 03/03/25 15:53) Swelling HPI HPI Comments History of Present Illness Details Patient is a 79-year-old female complaining of blocked ears. She tells me she wears hearing aids and ever since she started wearing them she ends up getting blocked ears and she has not come in to have his flush them out. She has also been experiencing some issues with her hearing aids and the company is working with her to trouble shoot the issues. [facility] Medical History Elevated cholesterol Breast cancer Hx of radiation therapy Depression Spinal stenosis Degenerative disc disease, cervical Arthritis Back pain HTN (hypertension) Diabetes Disc degeneration, lumbar Lumbar radiculopathy Osteoarthritis Breast cancer, left Surgical History Hx of bilateral cataract extraction History of knee replacement History of carpal tunnel release of both wrists Hx of cholecystectomy Hx of appendectomy Hx of hysterectomy History of lumpectomy of left breast H/O colonoscopy History of total left knee replacement Social History Housing: House Patient Tobacco Use Status: Former Tobacco user Tobacco use type: Cigarette Years Smoked: 50 years ago e-Cigarette/Vaping Use: Never Used Second Hand Smoke Exposure: No service: No Current occupational status: employed Current occupation: [employer] Current occupational exposures/hazards: No Cognitive needs: No Hearing needs: No Vision needs: Yes Review of Systems Const All systems reviewed & are unremarkable except as noted in HPI and below Physical Exam Vital Signs: Last Vital Signs Temp 98.0 F 03/03/25 15:45 Pulse 62 03/03/25 15:45 BP 128/86 03/03/25 15:45 Pulse Ox 95 03/03/25 15:45 Oxygen Delivery Method Room Air 03/03/25 15:45 BMI result Body Mass Index 33.0 Const General: cooperative, healthy appearing, comfortable and no acute distress Orientation/consciousness: patient oriented x3 HEENT Head: Yes normal to inspection Ears: mastoids normal, Abnormal EAC present cerumen impaction and unable to visualize TM (cerumen blockage) General nose exam: Normal external nose present Face and sinus: Yes normal facial exam Resp Effort & Inspection: normal respiratory effort and able to speak in complete sentences Neuro General: patient oriented x3 Office Procedures Cerumen Removal From which ear canal was the cerumen removed: bilateral Removal: irrigation Notes: patient tolerated procedure well, no complications and ear canal clear [id number] Irrigation/Lavage Assessment & Plan Assessment & Plan (1) Impacted cerumen of both ears: Code(s): H61.23 - Impacted cerumen, bilateral Plan: Both ears are clear, she does have a little bit of fluid in there behind the tympanic membrane but she is not complaining of any pain. Coding Level of Care Code Est Pt Level 3 (22805) Diagnoses Impacted cerumen of both ears H61.23 CPT Codes Office Procedure - CPT: 12183-Ltp Irrigation/Lavage ([id number])
== END 2025-03-03 16:17 | disposition home or self-care (01) ==
PROVIDERS: PCP Nurse Practitioner Family; Visit Provider Physician Assistant
DX: H61.23 Impacted cerumen, bilateral (principal)

== ENCOUNTER → 2025-03-03 15:41 | Outpatient (BNVA) | payer MEDICARE, OTHER, SELFPAY | PROVIDERS: PCP Nurse Practitioner Family | DX: H61.23 Impacted cerumen, bilateral (principal) | CPT/HCPCS: 69209; 99212 ==

== ENCOUNTER → 2025-03-11 07:50 | Outpatient (REF) | payer MEDICARE, OTHER, SELFPAY ==
--- OUTSIDE RECORDS SUMMARY | 2025-03-11 07:52 | XMS_ITS | Clinical Summary ---
Author Organization [facility] Address [address] [place] [address] Care Team Providers Care Tool Trouble Shooter Name Role Phone John Herrera Primary Care [...] 57 11/26/2023 11:52 AM EST Temperature 37.3 C (99.2 F) 11/26/2023 11:52 AM EST Respiratory Rate - - Oxygen [...] age to complete this topic Care Teams Tool Trouble Shooter Relationship Specialty Start Date End Date John Herrera [address] [facility] [place] [address] PCP - General Family Medicine 05/30/23
--- NOTE | 2025-03-11 07:54 | CA_ITS ---
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 The visually estimated ejection fraction is between 55-60%. - E/E prime ratio is between 8 and 15 consistent with indeterminate filling pressures. - Normal right ventricular cavity size and systolic function. - The left atrium is moderately dilated. - There is mild aortic valve stenosis. Findings Left Ventricle Normal left ventricular size, thickness, and systolic function. The visually estimated ejection fraction is between 55-60%. There is no evidence of regional wall motion abnormalities. Abnormal diastolic function is noted. Spectral Doppler is indicative of an impaired relaxation filling pattern. E/E prime ratio is between 8 and 15 consistent with indeterminate filling pressures. Right Ventricle Normal right ventricular cavity size and systolic function. Atria The left atrium is moderately dilated. The right atrium is likely dilated. Aortic Valve There is a normal trileaflet aortic valve. There is mild calcification of the aortic valve. There is mild aortic valve stenosis. The peak aortic velocity is 2.55 m/s. The mean gradient is 14 mmHg. The aortic valve area is 1.08 cm2. There is no aortic valve regurgitation. Mitral Valve The mitral valve appears normal. There is trace mitral valve regurgitation. There is no mitral valve stenosis. Pulmonic Valve The pulmonic valve is likely normal. Tricuspid Valve Normal tricuspid valve structure. There is trace tricuspid valve regurgitation. Normal right atrial pressure. There is no evidence of pulmonary hypertension. Great Vessels All visible segments of the aorta are normal in size. The visualized portions of the pulmonary artery and branches are normal. Venous The inferior vena cava is normal in size and collapses greater than 50% with inspiration. Pericardium/Pleural There is no evidence of pericardial effusion. Prior Study Comparison No significant change compared to prior study dated: 04/15/2024. Measurements 2D Linear Measurements IVSd: 0.86 0.6-0.9/0.6-1.0 cm LVIDd: 5.14 3.9-5.3/4.2-5.9 cm LVIDd Index: 2.99 2.4-3.2/2.2-3.1 cm/m2 LVIDs: 3.52 2.0-3.6 cm LVPWd: 0.87 0.7-1.1 cm LA Diam: 3.70 2.7-3.8/3.0-4.0 cm LAIDs Index: 2.15 1.5-2.3 cm/m2 LV Mass: 196.28 67-162/88-224 g LV Mass Index: 114.12 43-95/49-115 g/m2 LVOT Diam: 2.10 3.0+(-)1.3 cm 2D Systolic Function EF 4C: 51.10 >55% EF 2C: 51.10 >55% EF BiP: 51.70 >55% Mitral Valve MV Pk E: 0.57 MV PK A: 0.80 MV Decel Time: 297.00 E/A: 0.70 E'Lateral: 6.53 E'Medial: 5.00 E/E' Med: 11.50 E/E' Lat: 8.80 PHT: 87.00 MVA PHT: 2.53 Decel Summers: 1.93 Aortic Valve AoV Pk Bethel: 2.55 AoV Mn Bethel: 1.79 AoV VTI: 0.71 AoV Pk Grad: 26.00 Aov Mn Grad: 14.00 COURTNEY Cont.VTI: 1.08 LVOT LVOT Pk Bethel: 0.74 LVOT Mn Bethel: 0.54 LVOT VTI: 0.22 LVOT Pk Grad: 2.00 LVOT Mn Grad: 1.00 LVOT Diam: 2.10 LVOT Area: 3.46 Diastolic Function MV Pk E: 0.57 MV Pk A: 0.80 E/A: 0.70 E'Medial: 5.00 E/E' Med: 11.50 E' Laterial: 6.53 E/E' Lat: 8.80 Right Ventricle TAPSE (mm): 27.70 TVS' Bethel: 10.00 Tricuspid Valve TR Pk Bethel: 2.70 TR Pk Grad: 29.00 RA Press: 3.00 RVSP: 32.00 Great Vessels Aorta Sinus of Valsalva: 2.97 2.0-3.5 cm Ao Asc: 3.40 2.1-3.4 cm Updated in Other Vendor System with Status of Final Juan A Marie MD electronically signed on 03/13/2025 1:47:03 PM with status of Final
== END ==
LOC: HO.CARD 07:50
PROVIDERS: PCP Nurse Practitioner Family; Visit Provider Nurse Practitioner Family
DX: R01.1 Cardiac murmur, unspecified (principal); R93.1 Abnormal findings on diagnostic imaging of heart and coronary circulation
CPT/HCPCS: 93306

== ENCOUNTER → 2025-03-11 07:54 | Outpatient (BNV) | payer MEDICARE, OTHER, SELFPAY | PROVIDERS: PCP Nurse Practitioner Family; Visit Provider Internal Medicine Cardiovascular Disease | DX: R01.1 Cardiac murmur, unspecified (principal) | CPT/HCPCS: 93306 ==

== ENCOUNTER 2025-03-16 10:08 | Outpatient (REF) | payer MEDICARE, OTHER, SELFPAY ==
--- OUTSIDE RECORDS SUMMARY | 2025-03-16 11:43 | XMS_ITS | Clinical Summary ---
Author Organization [facility] Address [address] [place] [address] Care Team Providers Care Oil Painter Name Role Phone John Herrera Primary Care [...] to complete this topic Care Teams Oil Painter Relationship Specialty Start Date End Date John Herrera [address] [facility] [place] [address] PCP - General Family Medicine 05/30/23
[2025-03-16 13:19] LABS: MANUAL DIFF FLAG NO
[2025-03-16 13:31] LABS: Basophils Absolute Auto 0.1 X10*3/uL (0.0-0.2); Basophils Percent Auto 0.8 % (0-2); Eosinophils Absolute Auto 0.2 X10*3/uL (0.0-0.4); Eosinophils Percent Auto 3.6 % (0-4); Hematocrit 37.1 % (37.0-47.0); Hemoglobin 11.9 g/dl (12.0-16.0); Imm Gran Abs Auto 0.03 X10*3/uL (0.00-0.03); Imm Gran Pct Auto 0.5 % (0.0-0.4); Lymphocytes Absolute Auto 1.2 X10*3/uL (1.2-4.9); Lymphocytes Percent Auto 18.5 % (20-40); Mean Corpuscular HGB Conc 32.1 g/dl (31.0-35.0); Mean Corpuscular Hemoglobin 33.1 pg (27.0-33.0); Mean Corpuscular Volume 103.3 fL (80.0-98.0); Mean Platelet Volume 10.5 fL (9.4-12.3); Monocytes Absolute Auto 0.6 X10*3/uL (0.1-1.2); Neutrophils Absolute Auto 4.3 x10*3/uL (2.0-8.3); Neutrophils Percent Auto 67.6 % (45-73); Platelet Count 225 X10*3/uL (160-400); Red Blood Count 3.59 X10*6/uL (4.20-5.50); Red Cell Distribution Width 12.5 % (11.0-16.0); White Blood Count 6.3 X10*3/uL (4.8-10.8)
[2025-03-16 13:44] LABS: Estimated Average Glucose 100 mg/dL; Hemoglobin A1c % 5.1 % (<6.0)
[2025-03-16 14:09] LABS: Anion Gap 11 (12-20); Blood Urea Nitrogen 18 mg/dL (9-16); Calcium 9.4 mg/dL (8.4-10.2); Carbon Dioxide 25 mmol/L (22-29); Chloride 111 mmol/L (96-108); Estimated Glomerular Filt Rate 53; Ferritin 95 ng/mL (10-250); Glucose Random 116 mg/dL (60-115); Iron 40 mcg/dL (30-160); Percent Iron Saturation 18 % (15-50); Phosphorus 3.6 mg/dL (2.7-4.5); Potassium 4.1 mmol/L (3.3-5.1); Sodium 143 mmol/L (135-145); Total Iron Binding Capacity 217 mcg/dL (228-428); Unsaturated Iron Binding 177 ug/dL; Uric Acid 6.6 mg/dL (2.4-5.7); Vitamin D 25-OH Total 27.5 ng/mL (>30)
[2025-03-16 14:16] LABS: Parathyroid Hormone Intact 79.2 pg/mL (8.7-77.1)
[2025-03-17 15:33] LABS: Calcium, Ionized 5.3 mg/dL (4.7-5.5)
[2025-03-22 19:54] LABS: VITAMIN D (1,25 OH) D3 15 pg/mL; Vit D (1,25-Dihydroxy) Total 15 pg/mL (18-72); Vitamin D (1,25 OH) D2 <8 pg/mL
== END 2025-03-16 10:09 | disposition home or self-care (01) ==
LOC: HO.HMGCLDS 10:08
PROVIDERS: PCP Nurse Practitioner Family; Visit Provider Internal Medicine Nephrology
DX: N18.32 Chronic kidney disease, stage 3b (principal); E55.9 Vitamin D deficiency, unspecified; N18.9 Chronic kidney disease, unspecified; D63.1 Anemia in chronic kidney disease; N20.0 Calculus of kidney; E11.21 Type 2 diabetes mellitus with diabetic nephropathy; N25.81 Secondary hyperparathyroidism of renal origin
CPT/HCPCS: 36415; 80048; 82306; 82330; 82652; 82728; 83036; 83540; 83970; 84100; 84550; 85025

== ENCOUNTER 2025-03-17 06:30 | Outpatient (REF) | payer MEDICARE, OTHER, SELFPAY ==
--- OUTSIDE RECORDS SUMMARY | 2025-03-17 10:03 | XMS_ITS | Clinical Summary ---
Author Organization [facility] Address [address] [place] [address] Care Team Providers Care Nursing Clinical Director Name Role Phone John Herrera Primary Care Provider [phone] Allergies Active Allergy Reactions Criticality Noted Date [...] age to complete this topic Care Teams Nursing Clinical Director Relationship Specialty Start Date End Date John Herrera [address] [facility] [place] [address] PCP - General Family Medicine 05/30/23
[2025-03-17 11:00] LABS: Appearance Urine Clear; Color Urine Yellow; Glucose Urine UA Negative (Negative); Leukocyte Esterase Urine Moderate (2+) (Negative); Nitrite Urine Negative (Negative); Specific Gravity - Urine >= 1.030 (1.005-1.025); UMIC TRIGGER UA YES; Urine Blood Negative (Negative); Urine Ketones Negative (Negative); Urine Protein 30 (1+) mg/dL (Neg-Trace)
[2025-03-17 11:05] LABS: Bacteria Urine None Seen (None Seen); Hyaline Casts Urine 0-2 /LPF (0-2); RBC Urine 0-2 /HPF (0-2); WBC Urine 21-50 /HPF (0-5)
[2025-03-17 11:39] LABS: Creatinine Urine 85.29 mg/dL; Microalbum/Creatinine Ratio Ur 214.5 ug/mg cr (<30); Protein/Creatinine Ratio, Ur 0.38 (<0.2); Total Protein Urine Random 32 mg/dL (<12)
== END 2025-03-17 06:31 | disposition home or self-care (01) ==
LOC: HO.HMGCLNP 06:30
PROVIDERS: PCP Nurse Practitioner Family; Visit Provider Internal Medicine Nephrology
DX: E55.9 Vitamin D deficiency, unspecified (principal); N18.9 Chronic kidney disease, unspecified; D63.1 Anemia in chronic kidney disease; N20.0 Calculus of kidney; N18.32 Chronic kidney disease, stage 3b; E11.21 Type 2 diabetes mellitus with diabetic nephropathy
CPT/HCPCS: 81001; 82043; 82570; 84156

== ENCOUNTER 2025-03-17 09:26 | Outpatient (REF) | payer SELFPAY | END 2025-03-17 09:27 | disposition home or self-care (01) | LOC: HO.HAP 09:26 | PROVIDERS: Visit Provider Nurse Practitioner Family | DX: Z13.89 Encounter for screening for other disorder (principal) ==

== ENCOUNTER 2025-04-14 06:34 | Inpatient (IN) | payer MEDICARE, OTHER, SELFPAY ==
--- OUTSIDE RECORDS SUMMARY | 2024-03-26 07:20 | XMS_ITS ---
Author Organization [facility] Address [address] [place] [address] Care Team Providers Care Front Window Cashier Name Role Phone CHANDU CHISHOLM Primary Care Provider Taiwo Azar Unavailable [phone] REASON FOR VISIT diarrhea,wt loss,nausea Problems Problem Type SNOMED Code ICD Code Onset Dates Problem Status W/U Status Risk Notes Problem Diverticulosis o f large intestine without perforation or abscess without bleeding (K57.30) Active confirmed Encounters Encounter Location Date Provider [place] [facility] [place] [address] [place], [place] [phone] 03/26/2024 Taiwo Mcintosh Diarrhea R19.7 ; W [...] NANCY VORA CDOB: 7 (79 yo F)Acc No.[id number]:03/26/2024 EGD and COL/MAC Patient: B ENOIT, NANCY C Provider: Domo Mcintosh MD :1945 A ge:78 Y S ex:Female Date:03/26/2024 Address:[address] [address] , [id number] Pcp:CHANDU CHISHOLM Subjective: * Chief Complaints: * [...] FLW-UP 10 YRS DOCD, Modifiers: 8P , 03630 UPPER GI ENDOSCOPY, BIOPSY * * The named appointment provid er may or may not be the originator of this progress note, and it is not deemed complete until electronically signed by the appointment provider. Sign off status: Pending * Provider: Domo Mcintosh MD Date: 03/26/2024 Generated for Leidy elaine/Manolo/Sunitting on: 04/14/2025 07:25 AM EDT
[2025-04-14] VITALS (10 sets, daily range): BP systolic 146–197; BP diastolic 57–94; PULSE 63–78; RESP 12–18; TEMP 36.5–37.6; O2SAT 97–100; BMI 32.2
--- NOTE | ~2025-04-14 | CT_ITS ---
EXAMINATION: CT ABDOMEN AND PELVIS WITH CONTRAST CLINICAL INFORMATION: Nausea, vomiting. Abdominal pain. COMPARISON: None available. TECHNIQUE: Multidetector volumetric images were obtained from the superior aspect of the liver through the pubic symphysis following administration 85 mL of Omnipaque 350 intravenous contrast. Sagittal and coronal reformatted images were obtained on the technologist's workstation. Oral contrast: No This CT examination was performed using dose optimization techniques as appropriate, variously including the following: *Automated exposure control *Adjustment of mA and/or kV according to patient size (this includes techniques or standardized protocols for targeted exams where dose is matched to indication/reason for exam; i.e. extremities or head) *Use of iterative reconstruction technique DLP: 606 mGy centimeter. FINDINGS: LUNG BASES: No acute airspace disease. LIVER, GALLBLADDER, AND BILIARY TREE: Liver measures 14 cm. Nodular surface. No focal mass. Portal veins and hepatic veins are patent. Status post cholecystectomy. Common bile duct measures 16 mm. Mild intrahepatic biliary ductal dilatation. PANCREAS: No focal mass. No peripancreatic fluid collection. No main pancreatic ductal dilatation. SPLEEN: 9 cm. Less than 10 mm hypodensities. ADRENAL GLANDS: No nodular lesions. KIDNEYS AND URETERS: No hydronephrosis. No gross nephrolithiasis. There is a 15 mm exophytic thin septated hypodensity in the posterior midportion, left kidney. There are few scattered cyst both kidneys. Renal cortical thinning bilaterally. BLADDER: Fluid-filled. GASTROINTESTINAL TRACT: I do not see the appendix. Gas and fluid-filled mildly prominent distal ileal loops. No intestinal obstruction pattern. No intestinal wall thickening. No pneumatosis intestinalis. No pneumoperitoneum. No ascites. No peripheral enhancing fluid collections in the peritoneal cavity. Small hiatal hernia. ABDOMINAL WALL: Small fat-containing umbilical hernia. LYMPH NODES: No lymphadenopathy, mesenteric or retroperitoneal. VASCULAR: Mixed plaques throughout the abdominal aorta wall and iliac arteries. No aneurysm or dissection abdominal aorta. Calcified plaques in the origin of the main renal arteries pronounced on the left side. PELVIC VISCERA: Absent. OSSEOUS STRUCTURES: Multilevel thoracolumbar spondylosis pronounced at L4-5 resulting in central spinal canal and bilateral neuroforamina stenosis. Degenerative changes in the sacroiliac joints, symphysis porus in the coxofemoral joints. No acute fracture. CT/CT abdomen pelvis w IV con IMPRESSION: Mild enteritis should be considered. With no intestinal obstruction pattern. Biliary ductal dilatation of concern etiology. Bosniak type II cysts, left kidney. Cystic lesions, spleen. Statistically may present hemangiomata versus cyst. Central spinal canal and bilateral neuroforamina stenosis at L4-5 on a degenerative basis. Small fat-containing umbilical hernia. Atherosclerosis disease.. Fleischner guidelines were followed. Electronically signed by: Phani Chapman MD 04/14/2025 09:55 AM EDT
[2025-04-14 07:20] LABS: Glucose, Whole Blood 152 mg/dL (60-115)
--- OUTSIDE RECORDS SUMMARY | 2025-04-14 07:25 | XMS_ITS | Clinical Summary ---
Author Organization [facility] Address [address] [place] [address] Care Team Providers Care Front End Drupal Developer Name Role Phone John Herrera Primary Care Provider [phone] Allergies Active Allergy Reactions Criticality Noted Date [...] 1-dose 75+ series) 2022 Influenza Vaccine (#1) 2025 Hepatitis B Vaccines Aged Out No long er eligible based on patient's age to complete this topic RSV Ped < 20 months Aged Out No longe r eligible based on patient's age to complete this topic Care Teams Front End Drupal Developer Relationship Specialty Start Date End Date John Herrera [address] [facility] [place] [address] PCP - General Family Medicine 05/30/23
--- OUTSIDE RECORDS SUMMARY | 2025-04-14 07:25 | XMS_ITS | Encounter Summary ---
Author Organization [facility] Address [address] [place] [address] Phone Care Team Providers Care Patternmaker Apprentice Wood Name Role Phone John Herrera NP Primary Care Provider [phone] Reason for Visit * Reason Comments Med Refill Encounter Details Date Type Department Care Team (Late st Contact Info) Description 11/15/2023 Refill [facility] [address] [place] [phone] Karson Law MD Social History Tobacco Use [...] on filedocumented in this encounter Care Teams Patternmaker Apprentice Wood Relationship Specialty Start Date End Date John Herrera NP [address] [facility] [place] [address] PCP - General Nurse Practitioner 09/05/21 documented as of this encounter
--- OUTSIDE RECORDS SUMMARY | 2025-04-14 07:26 | XMS_ITS | Encounter Summary ---
Author Organization [facility] Address [address] [place] [id number] Care Team Providers Care Waiter/Waitress Cocktail Lounge Name Role Phone John Herrera MD Primary Care Provider Encounter Details Date Type Department Care Team (Late st Contact Info) Description 02/03/2024 Scanned Document [facility] Department of Internal Medicine & Nephrology [address] [phone] Karson Law MD [address] [place] [phone] Social History Tobacco Use Types Packs/Day Years Used Date Smoking Tobacco: Never Assessed Comments Unknown Sex and Gender Information Value Date Recorded Sex Assigned at Female 02/15/2025 9:38 AM EDT Legal Sex Female 12:02 PM EDT Gender Identity Female 02/15/2025 9:38 AM EDT Sexual Orientation Not on file documented as of this encounter Plan of Treatment Upcoming Encounters Date Type Department Care Team (Late st Contact Info) Description 12/16/2025 10:20 AM EDT Office Visit [facility] Department of Internal Medicine & Nephrology [place] [address] [place] [phone] Karson Law MD [address] [place] [phone] documented as of this encounter Visit Diagnoses Not on filedocumented in this encounter Care Teams Waiter/Waitress Cocktail Lounge Relationship Specialty Start Date End Date John Herrera MD [address] [facility] [place] [address] PCP - General Family Medicine 02/03/24 documented as of this encounter
--- OUTSIDE RECORDS SUMMARY | 2025-04-14 07:26 | XMS_ITS ---
[email or web address] [place] [address] 10/18/2021 11:30:20 10/18/2021 11:59:09 Osteoarthritis of hip 062293757 M16.9 Arthropath y of lumbar facet joint 522009282 M46.96 Lumbosacra l radiculopathy 6248396 M54.17 63852 Omar Coulter MD [facility] [email or web address] [place] [address] 01/01/2022 12:59:18 01/01/2022 14:31:36 Osteoarthritis of hip 077728364 M16.9 Arthropath y of lumbar facet joint 399331091 M46.96 Lumbosacra l radiculopathy 4697967 M54.17 79263 Omar Coulter MD [facility] [address] [email or web address] [address] 05/28/2022 13:05:44 05/29/2022 14:25:07 Osteoarthritis of hip 003766176 M16.9 Arthropath y of lumbar facet joint 402405661 M46.96 Lumbosacra l radiculopathy 9389557 M54.17 80141 Omar Coulter MD [facility] [address] [email or web address] [address] 04/22/2023 11:14:39 04/22/2023 14:42:39 Osteoarthritis of hip 707300628 M16.9 Arthropath y of lumbar facet joint 005657636 M46.96 Lumbosacra l radiculopathy 5942948 M54.17 56043 Omar Coulter MD [facility] [address] [email or web address] [address] 06/09/2023 11:18:38 06/09/2023 11:58:43 Osteoarthritis of hip 851108849 M16.9 Arthropath y of lumbar facet joint 564759686 M46.96 Lumbosacra l radiculopathy 9333080 M54.17 01465 Omar Coulter MD [facility] [email or web address] [place] [address] 10/28/2023 09:54:59 10/28/2023 14:24:20 Lumbosacral radiculopathy 3174130 M54.17 Degenerati on of lumbar intervertebral disc 80161792 M51.36 11062 Omar Coulter MD PAIN OFFICE [address] [facility] [place] [address] 01/27/2024 09:58:44 01/27/2024 10:59:54 Lumbosacral radiculopathy 6277786 M54.17 Degenerati on of lumbar intervertebral disc 31856312 M51.36 99280 Omar Coulter MD PAIN OFFICE [address] [facility] [place] [address] 05/26/2024 14:28:52 05/26/2024 15:33:11 Lumbosacral spondylosis without myelopathy 93558238 M47.817 05818 Omar Coulter MD PAIN OFFICE [address] [facility] [place] [address] 06/01/2024 10:50:13 06/01/2024 16:05:47 Lumbosacral spondylosis without myelopathy 12714754 M47.817 42598 Omar Coulter MD PAIN OFFICE [address] [facility] [place] [address] 06/23/2024 10:08:25 06/24/2024 08:51:47 Lumbosacral radiculopathy 1786547 M54.17 Degenerati on of lumbar intervertebral disc 42248726 M51.362 84366 Omar Coulter MD [facility] [address] [facility] [place] [address] 08/16/2024 09:50:57 08/23/2024 11:42:01 Lumbosacral radiculopathy 0003554 M54.17 Neuropathy due to diabetes mellitus 715294735 E11.40 Osteoarthritis of hip 23 3996142 M16.9 Arthropath y of lumbar facet joint 427780344 M46.96 08793 Omar Coulter MD PAIN OFFICE [address] [facility] [place] [address] 12/07/2024 08:57:10 12/07/2024 16:05:22 Lumbosacral radiculopathy 5775002 M54.17 Degenerati on of lumbar intervertebral disc 17410202 M51.362 18122 Omar Coulter MD PAIN OFFICE [address] [place] [address] 03/30/2025 10:55:18 03/30/2025 16:05:57 Lumbosacral radiculopathy 9650873 M54.17 Degenerati on of lumbar intervertebral disc 29760072 M51.362 Health Concerns Section Related Observation LastModified by Organization Detai ls LastModified Time None Recorded Concern Status LastModified by Organization Details LastModified Time None Recorded Advance Directives Directive None Recorded Payers Insurance Date Sequence Insurance Name Policy Number Policy Jones Covered Member ID Jones Member ID Guarantor Name 03/27/2025 2 [employer] (MEDICARE SUPPLEMENT) Kayleen Wilson [id number] Kayleen Wilson 03/27/2025 1 [place]IC[place]: [employer] Kayleen Wilson [id number] Kayleen Wilson Notes Date Note Type Note Provider Name and Address Organization Details Recorded Time 06/01/2024 text/html She is here for a left lumbar facet joint injection under fluoroscopic guidance Omar Coulter MD [address] [facility] , [address], [place], [address], [facility] - [facility] Management 06/01/2024 16:09:36 06/23/2024 text/html She is here for a lumbar epidural steroid injection under fluoroscopic guidance. Omar Coulter MD [address] [facility] , [address], [place], [address], [facility] Pain [facility] 06/24/2024 08:54:02 08/16/2024 text/html This [...] done next year. She has been to [facility] and states she had a good trip. She is having severe pain in her right mid back .The facet joint injection did not help. She has not trialed lidocaine patches. She has seen her PCP for the pain. Omar Coulter MD [address] [facility] , [address], [place], [address], [facility] Pain Management 08/23/2024 11:42:41 12/07/2024 text/html She is here for a lumbar epidural steroid injection under fluoroscopic guidance. Omar Coulter MD [address] [facility] , [address], [place], [address], [facility] - Pain Management 12/07/2024 16:08:18 03/30/2025 text/html She is here for a lumbar epidural steroid injection under fluoroscopic guidance. Omar Coulter MD [address] [facility] , [address], [place], [address], [facility] - Pain Management 03/30/2025 16:16:59 OBGyn Episode No OBEpisode recorded. Data Portability Created on: April 14, 2025 Kayleen Wilson .[id number] : 1945 Sex: Female Author Organization [place] [facility], PAIN OFFICE Address [address] [facility] [address] [place] [address] Care Team Providers Care Agency Sales Management Assistant Name Role Phone CHANDU CHISHOLM Primary Care Provider [phone] Assessment Encounter Date Assessment Date Assessment LastModified by Organization Details LastModified Time 06/01/2024 06/01/2024 Kayleen Wilson is a 78 year old woman with left sided low back pain which is worse for the past few months. On exam, She has limited Range of motion of the lumbar spine . Facet loading is positive on the left. Tenderness is elicited in left lumbar region L2-3 and L3-4 levels . Currently her back pain is her worse pain. She is here for a trial of Lumbar facet joint steroid injections at L2-3 and L3-4 levels on the left side under fluoroscopic guidance . The risks and benefits of the procedure were discussed in detail. She wishes to proceed. She will call in one week if beneficial. She may be a candidate for a RFA [email or web address] Not available 06/01/2024 11:31:00 06/23/2024 06/23/2024 Kayleen Wilson is a 78 year old woman with complaints of low back pain radiating into both hips. She is here for a Lumbar epidural steroid injection under fluoroscopic guidance . The risks and benefits of the procedure were discussed in detail. She wishes to proceed. She will follow up in three months [email or web address] Not available 06/23/2024 10:38:54 08/16/2024 08/16/2024 Kayleen [...] lumbar epidural injection before her trip to [place] next year [email or web address] Not available 08/23/2024 11:41:24 12/07/2024 12/07/2024 Kayleen Wilson is a 79 year old woman with complaints of low back pain radiating into both hips. She is here for a Lumbar epidural steroid injection under fluoroscopic guidance . The risks and benefits of the procedure were discussed in detail. She wishes to proceed. She will follow up in three months [email or web address] Not available 12/07/2024 10:17:33 03/30/2025 03/30/2025 Kayleen Wilson is a 79 year old woman with complaints of low back pain radiating into both hips. She is here for a Lumbar epidural steroid injection under fluoroscopic guidance . The risks and benefits of the procedure were discussed in detail. She wishes to proceed. She will follow up in three months [email or web address] Not available 03/30/2025 16:02:15 Plan of Treatment Reminders Order Date Submit Date Provider Last Modified By Organization Details Last Modified Time Details Appointments RETURN 2024 10:30A M Omar mayberry MD Not available Not available Not available PROCEDURE 2024 10:30A M Omar mayberry MD Not available Not available Not available Lab None recorded. Referral None recorded. Procedures None recorded. Surgeries None recorded. Imaging None recorded. Medication Orders lidocaine 5 % topical patch 2023 024 [id number], [address], [place], [id number], 08/16/2024 10:38:29 Patient TargetsNo targets recorded. Patient Instructions Encounter Date Encounter Id Patient Instructions Last Modified By Organization Details Last Modified Time 06/01/2024 [id number] She was advised against bed rest lasting longer than four days and to continue activities as tolerated. [email or web address] Not available 06/01/2024 11:30:11 12/07/2024 [id number] She was advised against bed rest lasting longer than four days and to continue activities as tolerated. [email or web address] Not available 12/07/2024 10:18:55 03/30/2025 [id number] She was advised against bed rest lasting longer than four days and to continue activities as tolerated. [email or web address] Not available 03/30/2025 16:02:16 Reason for Referral None Reported. Problems Name Problem SNOMED Code Status Onset Date Resolution Date Notes Provider Name and Address Organization Details Recorded Time Degeneratio n of lumbar interverteb ral disc 49249498 Completed 04/29/2019 Omar mayberry MD [address] , [address], [place], [address] [place] [facility] 9 15:16:59 Degeneratio n of cervical interverteb ral disc 11616425 Active Omar mayberry MD [address] , [address], [place], [address], [place] [facility] 15:16:55 Muscle pain 92950141 Active Omar mayberry MD [address] [facility] , [address], [place], [address], [place] [facility] 15:17:16 Cervical spondylosis without myelopathy 603721084 Active Omar mayberry MD [address] [facility] , [address], [place], [address], [place] [facility] 15:17:31 Degeneratio n of thoracic interverteb ral disc 20365506 Active Omar mayberry MD [address] [facility] , [address], [place], [address], [place] [facility] 15:17:48 Osteoarthri tis of knee 076885902 Active Omar mayberry MD [address] [facility] , [address], [place], [address], [place] [facility] 15:53:33 Lumbosacral radiculopat hy 4742282 Active 2023 Omar mayberry MD [address] [facility] , [address], [place], [address], [place] [facility] 4 10:50:13 Problem Notes None recorded. Procedures Surgical History Date Name Laterality Status Provider Name and Address Organization Details Recorded Time 03/30/20 25 Lumbar Epidural steroid injection under fluoroscopic guidance completed Omar Coulter MD [address] [facility] , [address], [place], [address], [place] [facility] 03/30/2025 16:02:51 12/08/19 25 Lumbar Epidural steroid injection under fluoroscopic guidance completed Omar Coulter MD [address] , [address], [place] [facility], [address], [place] [facility] 12/07/2024 10:18:43 06/23/20 24 Lumbar Epidural steroid injection under fluoroscopic guidance completed Omar Coulter MD [address] , [address], [place], [address], [place] [facility] 06/23/2024 10:39:49 06/01/20 24 Fluoroscopic Guided Lumbar Facet Steroid Injections of levels completed Omar Coulter MD [address] , [address], [place], [address], [place] [facility] 06/01/2024 11:29:39 01/27/20 24 Lumbar Epidural steroid injection under fluoroscopic guidance completed Omar Coulter MD [address] , [address], [place], [address], [place] [facility] 01/27/2024 10:34:03 10/28/19 24 Lumbar Epidural steroid injection under fluoroscopic guidance completed Omar Coulter MD [address] , [address], [place], [address], [place] [facility] 10/28/2023 10:49:28 04/22/20 23 Lumbar Epidural steroid injection under fluoroscopic guidance completed Omar Coulter MD [address] , [address], [place], [address], [place] [facility] 04/22/2023 11:45:19 05/28/20 22 Lumbar Epidural steroid injection under fluoroscopic guidance completed Omar Coulter MD [address] , [address], [place], [address], [place] [facility] 05/29/2022 14:22:44 01/02/20 22 Lumbar Epidural steroid injection under fluoroscopic guidance completed Omar Coulter MD [address] , [address], [place], [address], [place] [facility] 01/01/2022 14:29:09 09/18/20 21 Lumbar Epidural steroid injection under fluoroscopic guidance completed Omar Coulter MD [address] , [address], [place], [address], [place] [facility] 09/19/2021 12:19:14 02/22/20 21 Intra-articular Knee Steroid Injection completed Omar Coulter MD [address] , [address], [place], [address], [place] [facility] 02/22/2021 14:06:45 02/16/20 21 Intra-articular Knee Steroid Injection completed Omar Coulter MD [address] , [address], [place], [address], [place] [facility] 02/15/2021 16:18:43 09/27/19 21 Thoracic Epidural Steroid injection under fluroscopic guidance completed Omar Coulter MD [address] , [address], [place], [address], [place] [facility] 09/27/2020 11:32:52 06/28/20 20 Trigger Point Injections under ultrasound guidance completed Omar Coulter MD [address] [facility] , [address], [place], [address], [place] [facility] 06/28/2020 14:43:13 02/10/20 20 Trigger Point Injections under ultrasound guidance completed Omar Coulter MD [address] [facility] , [address], [place], [address], [place] [facility] 02/10/2020 13:40:00 11/15/19 20 Trigger Point Injections under ultrasound guidance completed Omar Coulter MD [address] [facility] , [address], [place], [address], [place] [facility] 11/19/2019 09:42:53 10/25/19 20 Trigger Point Injections under ultrasound guidance completed Omar Coulter MD [address] [facility] , [address], [place], [address], [place] [facility] 10/25/2019 14:53:01 06/23/20 19 Trigger Point Injections under ultrasound guidance completed Omar Coulter MD [address] [facility] , [address], [place], [address], [place] [facility] 07/05/2019 11:23:51 06/07/20 19 Trigger Point Injections under ultrasound guidance completed Omar Coulter MD [address] [facility] , [address], [place], [address], [place] [facility] 06/07/2019 15:03:55 05/18/20 19 Trigger Point Injections under ultrasound guidance completed Omar Coulter MD [address] , [address], [place], [address], [place] [facility] 05/19/2019 09:45:26 Hysterectomy completed Missy Hansen [place] - [facility] 04/29/2019 13:26:48 Cholecystectomy completed Missy Popeer [place] - [facility] 04/29/2019 13:27:00 Other completed Missy Hansen [place] [facility] 04/29/2019 13:28:52 Carpal tunnel release completed Missy Simonzier [place] - [facility] 04/29/2019 13:29:05 section completed Missy Hansen [place] [facility] 04/29/2019 14:06:18 total knee replacement completed Omar Coulter MD [address] , [address], [place], [address], [place] [facility] 10/28/2023 10:49:05 Imaging Results None recorded. Procedure Notes None recorded. Medical Equipment None Reported. Allergies Allergen ID Allergen Name Allergen Category Reaction Reaction Severity Criticality Documentation Date Start Date Code Code System Note Provider Name and Address Organization Details Recorded Time 80860 Product containin g penicilli n (product) medicatio n facial swelling itching Not available Not available Not available 04/29/2019 26591 8001 SNOMED Missy Simonzier nai, [place] [facility] 9 13:15:37 67867 Cipro medicatio n facial swelling itching Not available Not available Not available 04/29/201914537 3 RxNorm Missy Simonzier nai, [place] [facility] 9 13:15:56 92138 Substance with sulfonami de structure and antibacte rial mechanism of action (substanc e) medicatio n facial swelling severe Not available 02/15/2021 04656 8003 SNOMED Tamiko Sequeira nai, [place] [facility] 15:09:34 80239 Keflex medicatio n facial swelling severe Not available 02/15/202154967 7 RxNorm Tamiko trimble, [place] [facility] 15:09:55 55419 Non-stero idal anti-infl ammatory agent (product) medicatio n Not available Not available unabletoasse ss 05/28/2022 99428 005 SNOMED per renal Thenu Juice mayberry MD [address] [facility] , [address], [facility] [place], [address] , [place] [facility] 2 13:18:13 55283 hydromorp omid medicatio n vomiting severe low 06/09/20232022 3423 RxNorm Dee Dee trimble [place] [facility] 3 11:42:51 96792 tramadol medicatio n vomiting severe low 06/09/20232022 84010 RxNorm Dee Dee trimble [place] - [facility] 3 11:43:26 08624 meloxicam medicatio n Not available Not available Not available 01/27/2024 18544 RxNorm Koki trimble [place] [facility] 4 10:07:29 Medications Name Sig [...] TAKE 1 TABLET BY MOUTH TWICE DAILY TAKE WITH FOOD OR MEAL active Not Available Not Available No t [...] TAKE 1 TABLET BY MOUTH TWICE DAILY 03/30 completed Not Available Not Available Not Available azithromyci n 250 mg tablet TAKE 2 TABLETS BY MOUTH FOR 1 DAY THEN TAKE 1 TABLET BY MOUTH DAILY FOR 4 DAYS 03/30 completed Not Available Not Available Not Available [...] completed Not Available Not Available Not Available acetaminoph en 500 mg tablet TAKE 1 TABLET BY MOUTH EVERY 4-6 HOURS NEEDED active Not Available Not Available No t Available ondansetron 8 mg disintegrat ing tablet [...] completed Not Available Not Available Not Available chlorhexidi ne gluconate 0.12 % mouthwash SWISH AND SPIT 15 ML BY MOUTH IN THE MORNING AND IN THE EVENING FOR 2 WEEKS active Not Available Not Available No t Available losartan 100 mg-hydrochl orothiazide 12.5 mg tablet 01/24 completed Not Available Not Available Not Available valsartan 320 mg-hydrochl orothiazide 12.5 mg tablet 04/29 completed Not Available Not Available Not Available BD Ultra-Fine Short Pen Needle 31 gauge x 5/16 USE TO INJECT INSULIN DAILY active Not Available Not Available No [...] Available Not Available Not Available Fluzone High-Dose 2665-4641 (PF) 180 mcg/0.5 mL intramuscul ar syringe ADM 0.5ML IM UTD 04/29 completed Not Available Not Available Not Available Fluad 2019-20 65yr up(PF)45 mcg(15 mcgx3)/0.5 mL intramuscul ar syringe ADM 0.5ML IM UTD 05/18 completed Not Available Not Available Not Available Fluzone High-Dose Quad 2019- (PF) 240 mcg/0.7 mL IM syringe ADM 0.7ML IM UTD 09/20 completed Not Available Not Available Not Available Vitals Date Recorded Body height Heart rate Oxygen saturation Oxygen saturation in Arterial blood by Pulse oximetry Systolic And Diastolic Provider Name and Address Organization Details Last Updated DateTime 5 154.94 cm 51 /min 99 % 99 % 175/58 mm[Hg] Joyce Barney [place] - [facility] 5 09:02:02 Date Recorded Body height Systolic And Diastolic Provider Name and Address Organization Details Last Updated DateTime 03/30/2025 154.94 cm 181/52 mm[Hg] Nathalia Roman [place] - [facility] 03/30/2025 11:03:31 Date Recorded Body height Heart rate Oxygen saturation Oxygen saturation in Arterial blood by Pulse oximetry Systolic And Diastolic Provider Name and Address Organization Details Last Updated DateTime 4 154.94 cm 61 /min 99 % 99 % 175/72 mm[Hg] Joyce Barney [place] [facility] 4 11:00:27 Date Recorded Body height Oxygen saturation Oxygen saturation in Arterial blood by Pulse oximetry Heart rate Pain severity - 0-10 verbal numeric rating [Score] - Reported Systolic And Diastolic Provider Name and Address Organization Details Last Updated DateTime 4 154.94 cm 97 % 97 % 59 /min 10 211/76 mm[Hg] Koki Hollins [place] - [facility] 4 10:21:03 Date Recorded Body height Heart rate Oxygen saturation Oxygen saturation in Arterial blood by Pulse oximetry Pain severity - 0-10 verbal numeric rating [Score] - Reported Systolic And Diastolic Provider Name and Address Organization Details Last Updated DateTime 4 154.94 cm 61 /min 99 % 99 % 10 181/82 mm[Hg] Koki Hollins [place] - [facility] 4 10:06:03 Social History Question Answer Notes LastModified by Organizat ion Details LastModified Time Tobacco Smoking Status Former Smoker [facility]uit x 50 [facility] Available [facility] 07/07/2020 03:16:09 Which Illicit Or Recreational Drugs Have You Used? No [id number] Information not available 07/07/2020 Education 12 With Some College Information not available 04/29/2019 Live Alone Or With Others? Alone Information not available 04/29/2019 Marital Status Informatio n not available 04/29/2019 How Many Years Have You Smoked Tobacco? 3 [id number] Information not available 07/07/2020 Sex: Unknown Functional Status Question Answer Note LastModified by Organizat Pick1 Details LastModified Time What is your level of alcohol consumption? Occasional [id number] Information not available 07/07/2020 Are you currently employed? 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 Family History Relationship [...] SNOMED-CT Code Diagnosis ICD10 Code Diagnosis Note [id number] Omar Coulter MD [facility] [email or web address] [facility] [place] [address] 04/29/2019 13:08:47 04/29/2019 15:48:56 Muscle pain 64120251 M79.10 Degenerati on of cervical intervertebral disc 82142134 M50.30 Cervical s pondylosis without myelopathy 219540468 M47.812 Degenerati on of thoracic intervertebral disc 25970337 M51.34 60166 Omar Coulter MD [facility] [address] [place] [address] 05/18/2019 13:05:28 05/19/2019 09:47:26 Muscle pain 36210026 M79.10 Degenerati on of cervical intervertebral disc 25235058 M50.30 Cervical s pondylosis without myelopathy 702870337 M47.812 Degenerati on of thoracic intervertebral disc 97817232 M51.34 49545 Omar Coulter MD PAIN OFFICE [address] [email or web address] [address] 06/07/2019 12:59:28 06/07/2019 15:14:41 Muscle pain 00473827 M79.10 Degenerati on of cervical intervertebral disc 46065223 M50.30 Cervical s pondylosis without myelopathy 664477983 M47.812 Degenerati on of thoracic intervertebral disc 19876738 M51.34 89716 Omar Coulter MD [facility] [address] [email or web address] [address] 06/23/2019 15:13:29 07/05/2019 11:29:45 Muscle pain 71872885 M79.10 Degenerati on of cervical intervertebral disc 25234552 M50.30 Cervical s pondylosis without myelopathy 943451925 M47.812 Degenerati on of thoracic intervertebral disc 47087620 M51.34 19027 Omar Coulter MD PAIN OFFICE [address] [email or web address] [address] 10/25/2019 14:17:47 10/25/2019 14:54:29 Muscle pain 50969567 M79.10 Degenerati on of cervical intervertebral disc 14363047 M50.30 Cervical s pondylosis without myelopathy 014025184 M47.812 Degenerati on of thoracic intervertebral disc 88894749 M51.34 38341 Omar Coulter MD PAIN OFFICE [address] [place] [address] 11/15/2019 14:20:57 11/19/2019 09:46:43 Muscle pain 79427241 M79.18 Degenerati on of cervical intervertebral disc 82101660 M50.30 Cervical s pondylosis without myelopathy 130888484 M47.812 Degenerati on of thoracic intervertebral disc 75446389 M51.34 18533 Omar Coulter MD PAIN OFFICE [address] [place] [address] 01/25/2020 10:30:04 02/10/2020 10:22:36 Muscle pain 13828836 M79.10 Degenerati on of cervical intervertebral disc 64190469 M50.30 Cervical s pondylosis without myelopathy 643591866 M47.812 Degenerati on of thoracic intervertebral disc 80329329 M51.34 58973 Omar Coulter MD PAIN OFFICE [address] [place] [address] 02/10/2020 13:00:54 02/10/2020 13:45:55 Muscle pain 85672897 M79.18 Degenerati on of cervical intervertebral disc 91126980 M50.30 Cervical s pondylosis without myelopathy 195373941 M47.812 Degenerati on of thoracic intervertebral disc 57935762 M51.34 32834 Omar Coulter MD PAIN OFFICE [address] [place] [address] 05/18/2020 13:32:35 05/18/2020 15:44:35 Muscle pain 70796050 M79.10 Degenerati on of cervical intervertebral disc 14837331 M50.30 Cervical s pondylosis without myelopathy 009734514 M47.812 Degenerati on of thoracic intervertebral disc 49864831 M51.34 93216 Omar Coulter MD SV PAIN OFFICE [email or web address] [facility] [place] [address] 06/28/2020 12:49:27 06/28/2020 15:28:04 Muscle pain 85653029 M79.18 Degenerati on of cervical intervertebral disc 36641119 M50.30 Cervical s pondylosis without myelopathy 468541318 M47.812 Degenerati on of thoracic intervertebral disc 54412252 M51.34 13353 Omar Coulter MD PAIN OFFICE [email or web address] [facility] [place] [address] 09/20/2020 08:42:02 09/20/2020 11:18:24 Thoracic radiculopathy 65189667 M54.14 Muscle pain 02946698 M79 .10 Degenerati on of cervical intervertebral disc 77309430 M50.30 Cervical s pondylosis without myelopathy 915251958 M47.812 Degenerati on of thoracic intervertebral disc 28117803 M51.34 39562 Omar Coulter MD PAIN OFFICE [email or web address] [facility] [place] [address] 09/27/2020 10:02:38 09/27/2020 13:59:25 Thoracic radiculopathy 50942794 M54.14 Muscle pain 90185523 M79 .10 Degenerati on of cervical intervertebral disc 85063513 M50.30 Cervical s pondylosis without myelopathy 096081973 M47.812 Degenerati on of thoracic intervertebral disc 34939071 M51.34 13387 Omar Coulter MD SV PAIN OFFICE [email or web address] [facility] [place] [address] 10/26/2020 15:31:42 10/26/2020 15:51:53 Thoracic radiculopathy 45096586 M54.14 Muscle pain 55639326 M79 .10 Degenerati on of cervical intervertebral disc 29152165 M50.30 Cervical s pondylosis without myelopathy 435635973 M47.812 Degenerati on of thoracic intervertebral disc 04727004 M51.34 15055 Omar Coulter MD SV PAIN OFFICE [address] [facility] [place] [address] 02/05/2021 10:22:28 02/05/2021 15:56:53 Osteoarthritis of knee 201675120 M17.9 59845 Omar Coulter MD SV PAIN OFFICE [address] [facility] [place] [address] 02/15/2021 14:59:34 02/15/2021 16:22:18 Osteoarthritis of knee 722670100 M17.0 94651 Omar Coulter MD SV PAIN OFFICE [address] [facility] [place] [address] 02/21/2021 14:42:44 02/22/2021 14:39:41 Osteoarthritis of knee 505853107 M17.0 80502 Omar Coulter MD PAIN OFFICE [address] [facility] [place] [address] 06/08/2021 08:59:50 06/15/2021 10:30:41 Osteoarthritis of hip 896932526 M16.9 Arthropath y of lumbar facet joint 581166133 M46.96 38183 Omar Coulter MD PAIN OFFICE [address] [email or web address] [address] 09/18/2021 09:27:54 09/19/2021 12:22:33 Osteoarthritis of hip 336205028 M16.9 Arthropath y of lumbar facet joint 881270369 M46.96 Lumbosacra l radiculopathy 0250945 M54.17 27468 Omar Coulter MD SV PAIN OFFICE
--- OUTSIDE RECORDS SUMMARY | 2025-04-14 07:26 | XMS_ITS | Clinical Summary ---
Author Organization [facility] Address [address] [place] [phone] Phone Care Team Providers Care Photo Lab Specialist Name Role Phone John Herrera NP Primary [...] 58 08/09/2024 11:41 AM EST Temperature 37.2 C (99 F) 08/09/2024 11:41 AM EST Respiratory Rate - [...] Description 08/09/2025 11:00 AM EST Office Visit [facility] Hematology Oncology [address] [place] [address] Ceasar Colon MD [address] [place] [address] Health Maintenance Due Date Last Done Comments Diabetes: Annual GFR (Glomerular Filtration Rate) 1947 Diabetes: Annual Foot Exam 1957 Diabetes: Annual Retina Eye Exam 1955 DTaP,Tdap,and Td Vaccines (1 - Tdap) 1966 Zoster Vaccines (2 of 2) 11/13/2019 019, 07/16/2019, 03/17/2013 Cholesterol Screening (Lipid Panel) 10/26/2023 Falls Risk Assessment 10/26/2023 Hepatitis C Screening 10/26/2023 Medicare Annual Wellness Visit 10/26/2023 Osteoporosis Screening (Bone Density Screening) 10/26/2023 Social Influencers of Health Screening 10/26/2023 Diabetes: Annual Urine Albumin-Creatinine Ratio (uACR) 08/09/2024 Diabetes: Blood Sugar Control Test (HGBA1C) 08/09/2024 10/14/2022 Hypertension/CHF/CAD Annual BMP Blood Test 08/09/2024 Depression Screening 09/22/2024 COVID-19 Vaccine (7 - Pfizer risk season) 2024 06/14/2024, 06/24/2023, 05/14/2022, Additional history exists Influenza Vaccine (#1) 2025 , 06/24/2023, 05/14/2022, Additional history exists Pneumococcal Vaccine: 50+ Years Completed 06/04/2021, 04/30/2020, 09/06/2016 RSV Immunization Adult Patients Completed 06/14/2024 HIB [...] age to complete this topic Insurance MEDICARE [facility] Care Teams Photo Lab Specialist Relationship Specialty Start Date End Date John Herrera NP [address] [facility] [place] PCP - General 05/30/23
--- OUTSIDE RECORDS SUMMARY | 2025-04-14 07:26 | XMS_ITS ---
[facility] Name [facility] History of Medication Use Medication Directions Dispensed Refills Start Date End Date Stat us buPROPion (WELLBUTRIN) 100 MG tablet Take 1 tablet by mouth 2 (two) times a day. 06/04/2023 active carvedilol (COREG) 25 MG tablet 06/03/2023 active sitaGLIPtin (Januvia) 100 MG tablet Take 100 mg by mouth daily. 06/03/2023 active atorvastatin (LIPITOR) 10 MG tablet Take 10 mg by mouth daily. 05/15/2023 active levothyroxine (SYNTHROID, LEVOTHROID) 50 MCG tablet Take 50 mcg by mouth daily. 05/05/2023 active Allergies Allergen Reaction Severity Comment Documented Date Source Statu s ORPHENADRINE OTHER (SEE COMMENTS) Bloating and itchy 11/26/2023 [facility] active SULFA ANTIBIOTICS OTHER (SEE COMMENTS) Bloating and itchy 01/19/2021 [facility] active SULFAMETHOXAZOLE-TR IMETHOPRIM OTHER (SEE COMMENTS) 01/18/2021 [facility] active CEPHALEXIN OTHER (SEE COMMENTS) Bloating in face, itchy [facility] CIPROFIBRATE OTHER (SEE COMMENTS) Bloating and itchy [facility] CIPROFLOXACIN OTHER (SEE COMMENTS) [facility] PENICILLINS OTHER (SEE COMMENTS) [facility] Problems Problem Status Onset Date Problem Type [...] [facility] Nephrolithiasis active 2024-02-09 ProblemAct [facility] Encounters Encounter Type Encounter Reason Primary Diagnosis Location Date Ambulatory [facility] 03/18/[address] [facility] 08/13/[address] [facility] 02/09/2024 Care Team Organization Name Specialty Phone Email Start Date End Da te [facility] 02/09/2024 [facility] Primary Care 02/03/2024
--- NOTE | 2025-04-14 07:37 | PC.NURSE ---
79 F presents to ED with n/v/d x 1 week, sts happens every 4-5 weeks, unable to keep food/drink down. Hx Left breast lumpectomy 4 years ago. A+Ox4, anxious, cooperative. Ambulates with walker/cane at baseline. RR even and unlabored, some SOB per patient d/t anxiety. Denies CP. Sts 10/10 abdominal pain and 8/10 chronic back pain.
[2025-04-14 07:56] LABS: MANUAL DIFF FLAG NO
[2025-04-14 07:59] LABS: Hematocrit 40.1 % (37.0-47.0); Hemoglobin 14.0 g/dl (12.0-16.0); Imm Gran Abs Auto 0.08 X10*3/uL (0.00-0.03); Imm Gran Pct Auto 0.7 % (0.0-0.4); Lymphocytes Absolute Auto 1.2 X10*3/uL (1.2-4.9); Mean Corpuscular HGB Conc 34.9 g/dl (31.0-35.0); Mean Corpuscular Hemoglobin 34.0 pg (27.0-33.0); Mean Corpuscular Volume 97.3 fL (80.0-98.0); NRBC Abs Auto 0.000 X10*3/uL (0.0-0.012); NRBC Pct Auto 0.0 /100WBC (0.0-0.2); Platelet Count 257 X10*3/uL (160-400); Red Blood Count 4.12 X10*6/uL (4.20-5.50); White Blood Count 11.6 X10*3/uL (4.8-10.8)
--- NOTE | 2025-04-14 08:13 | ED_ITS ---
HPI - General Adult General Chief complaint: Nausea/Vomiting/Diarrhea Stated complaint: NPO x1 week dry heaving weakness SOB Time Seen by Provider: 04/14/25 08:07 Source: patient Mode of arrival: ambulatory Limitations: no limitations History of Present Illness ED Provider: Coreen Lopez PA-C HPI narrative: Patient is a 79 year old assigned female at with a history of gout, DM, hypothyroidism, HTN, breast cancer s/p lumpectomy and radiation, osteopenia, aortic stenosis, and depression presenting to the emergency department today with nausea, vomiting, and diarrhea. Patient states that every 6 months since she had her breast cancer she has these episodes of nausea, vomiting, and diarrhea. Patient states that she comes in to the hospital, gets fluids, and then goes home. Patient states that she has seen Dr. Mcintosh for this and all testing is negative. Patient denies any dizziness, lightheadedness, abdominal pain, fever, chills, blurry vision, double vision, loss of vision, chest pain, difficulty breathing, shortness of breath, back pain, night sweats, pain with urination, increased urinary frequency, increased urinary urgency, blood in her urine or stool, syncope or a near syncopal episode, recent trauma or falls, bowel incontinence, bladder incontinence, or any other complaints at this time. Onset (ago): day(s) Relieving factors: none Exacerbating factors: none Associated symptoms: nausea/vomiting Treatments prior to arrival: none Related Data Home Medications ?Medication ?Instructions ?Recorded ?Confirmed ondansetron 4 mg disintegrating mg PO 03/26/24 5 tablet Previous Rx's ?Medication ?Instructions ?Recorded sitagliptin phosphate 100 mg 100 mg PO DAILY 90 days # 90 tabs 11/08/24 tablet (Januvia) atorvastatin 10 mg tablet 10 mg PO DAILY 90 days #90 t abs 11/11/24 levothyroxine 50 mcg tablet 50 mcg PO DAILY #90 tabs 0 12/15/24 bupropion HCl 100 mg tablet 100 mg PO TID 90 days #270 tabs 12/20/24 pen needle, diabetic 31 gauge x #100 ea 01/18/2502/04 (Pen Needle) carvedilol 25 mg tablet 25 mg PO BID #180 tabs 01/26 gabapentin 100 mg capsule 100 mg PO TID 30 days #90 ca ps 03/18/25 Lantus Solostar U-100 Insulin 100 20 unit (0.2 mL) sub cut QAM #15 mL 03/31/25 unit/mL (3 mL) subcutaneous pen (insulin glargine) Allergies Allergy/AdvReac Type Severity Reaction Status Date / Time cephalexin (From Keflex) Allergy Severe Swelling Verified 04/14/25 06:56 ciprofloxacin (From Cipro) Allergy Severe eye Verified 04/14/25 06:56 swelling penicillin G Allergy Severe Angioedema Verified 04/14/25 06:56 Penicillins Allergy Severe ANGIOEDEMA Verified 04/14/25 06:56 doxycycline Allergy Intermediate Vomiting Verified 04/14/25 06:56 gabapentin Allergy Unknown Verified 04/14/25 06:56 meloxicam Allergy Unknown Verified 04/14/25 06:56 NSAIDS (Non-Steroidal AdvReac Unknown Verified 04/14/25 06:56 Anti-Inflamma Sulfacet-R Allergy Severe Swelling Uncoded 03/03/25 15:53 Review of Systems 2 Constitutional: Constitutional: Reports no additional constitutional complaints, Denies chills, Denies fever(s) and Denies night sweats Eyes: Eyes: Reports no additional eye complaints, Denies blurry vision, Denies change in vision, Denies diplopia, Denies eye discharge, Denies loss of vision and Denies eye pain ENT: Denies dizziness Cardiovascular: Cardiovascular: Reports no additional cardiovascular complaints, Denies chest pain, Denies lightheadedness, Denies Loss of Consciousness and Denies dyspnea Respiratory: Respiratory: Reports no additional respiratory complaints and Denies dyspnea Gastrointestinal: Gastrointestinal: Reports no additional gastrointestinal complaints, Denies melena, Denies hematochezia, Denies change in bowel habits, Denies change in stool character, Reports diarrhea, Reports nausea and Reports vomiting Genitourinary: Genitourinary: Denies hematuria, Denies urinary frequency, Denies dysuria, Denies urinary incontinence, Denies urinary hesitancy and Denies urinary urgency Musculoskeletal: Musculoskeletal: Reports no additional musculoskeletal complaints, Denies numbness and Denies tingling Neurologic: Denies dizziness, Denies loss of vision, Denies numbness and Denies tingling Psychiatric: Psychiatric: Reports no additional psychiatric complaints Endocrine: Endocrine: Reports no additional endocrine complaints Hematologic/Lymphatic: Hematologic/Lymphatic: Reports no additional hematologic/lymphatic complaints Allergic/Immunologic: Allergic/Immunologic: Reports no additional allergic/immunologic complaints PMFSH Past Medical History Attestation statement: The following information was validated with the patient. Source: old records reviewed and nursing notes reviewed Medical History Elevated cholesterol Breast cancer Hx of radiation therapy Depression Spinal stenosis Degenerative disc disease, cervical Arthritis Back pain HTN (hypertension) Diabetes Disc degeneration, lumbar Lumbar radiculopathy Osteoarthritis Breast cancer, left Surgical History Hx of bilateral cataract extraction History of knee replacement History of carpal tunnel release of both wrists Hx of cholecystectomy Hx of appendectomy Hx of hysterectomy History of lumpectomy of left breast H/O colonoscopy History of total left knee replacement Social History Social History Housing: House Alcohol intake: current Alcohol intake frequency: 0-2 drinks per day Patient Tobacco Use Status: Former Tobacco user Tobacco use type: Cigarette Years Smoked: 50 years ago Smoked in Last 30 Days: No e-Cigarette/Vaping Use: Never Used Second Hand Smoke Exposure: No Use of substances other than those prescribed or required for medical reasons: No Advance Directives: No Advance Directives Information Provided: Yes Do you have a plan to hurt others: No Plan service: No Current occupational status: employed Current occupation: [employer] Current occupational exposures/hazards: No Cognitive needs: No Hearing needs: No Vision needs: Yes Physical Exam ED Vital Signs: Vital Signs - 24 hr 04/14/25 06:54 04/14/25 07:14 04/14/25 08:15 Temperature 97.7 F 97.7 F Pulse Rate 66 66 65 Respiratory Rate 16 16 16 Blood Pressure 189/73 H 189/73 H 197/63 H Pulse Oximetry 100 100 99 Oxygen Delivery Method Room Air Room Air Room Air 04/14/25 10:57 04/14/25 13:11 Temperature Pulse Rate 74 76 Respiratory Rate 12 13 Blood Pressure 189/65 H 193/66 H Pulse Oximetry 97 99 Oxygen Delivery Method Room Air Room Air BMI result Body Mass Index 32.2 Const General: cooperative, no acute distress, alert and awake Nutritional Appearance: well nourished Orientation/consciousness: patient oriented x3 HENMT Head: Yes normal to inspection and Yes atraumatic Ears: hearing grossly normal bilaterally and external ears normal General nose exam: Normal external nose present, no nasal discharge noted and no epistaxis Face and sinus: Yes normal facial exam, No abrasion and No laceration Mouth: Normal oral and palatal mucosa present, no drooling and no muffled voice Eyes General: appearance normal, both eyes and all related structures Periorbital: periorbital findings normal Eyelids: Yes eyelids normal Conjunctivae: conjunctivae normal Pupils: Equal, round and reactive pupils present EOM: EOMs intact bilaterally Neck Neck: Yes normal visual inspection, Yes full ROM and Yes no lymphadenopathy Resp Effort & Inspection: normal respiratory effort and able to speak in complete sentences Neuro General: patient oriented x3, moves all extremities and CN's II-XI intact bilaterally Cranial nerves: Yes Equal, round and reactive pupils present Cognition (Neuro): normal cognition Extrem General: Yes normal to inspection, Yes full ROM and Yes capillary refill normal Psych Appearance: grossly normal Mental Status: mental status grossly normal Affect: normal affect Attitude: cooperative Thought process: Normal thought process present Thought content: Normal thought content present Insight: Good insight present (Psych) Medications Administered Discontinued Medications Generic Name Dose Route Start Last Admin Trade Name Freq PRN Reason Stop Dose Admin Sodium Chloride 1,000 mls @ 999 mls/hr 04/14/25 08:15 04/14/25 09:22 Ns IV 04/14/25 09:15 Infused .Q1H1M KIMBERLY Infusion Magnesium Sulfate 2 gm in 50 mls @ 25 mls/hr 04/14/25 09:16 04/14/25 11:28 Magnesium Sulfate/H2o IV 04/14/25 11:15 Infused ONCE ONE Infusion Sodium Chloride 1,000 mls @ 999 mls/hr 04/14/25 10:45 04/14/25 11:55 Ns IV 04/14/25 11:45 Infused .Q1H1M KIMBERLY Infusion Iohexol 100 ml 04/14/25 09:31 04/14/25 09:32 Iohexol 350 Mg/Ml 100 Ml Infus..Btl IV 04/14/25 09:32 85 ml ONCE ONE Administration Ondansetron HCl 4 mg 04/14/25 08:06 04/14/25 08:10 Ondansetron Hcl 4 Mg/2 Ml Vial IVPUSH 04/14/25 08:07 4 mg ONCE ONE Administration Ondansetron HCl 4 mg 04/14/25 13:02 04/14/25 13:07 Ondansetron Hcl 4 Mg/2 Ml Vial IVPUSH 04/14/25 13:03 4 mg ONCE ONE Administration Medical Decision Making Medical Decision Making [facility] Narrative: Patient is a 79 year old assigned female at with a history of gout, DM, hypothyroidism, HTN, breast cancer s/p lumpectomy and radiation, osteopenia, aortic stenosis, and depression presenting to the emergency department today with nausea, vomiting, and diarrhea. Patient's physical exam was unremarkable. Patient's blood work showed a magnesium of 1.3, elevated AST of 248, ALT of 200, and WBC count of 11.6. Patient's urine showed no acute process. Patient's CT abd/pelvis showed evidence of enteritis as well as multiple incidental findings including biliary ductal dilatation. I explained these incidental findings to the patient in great detail and expressed her need to have these followed up on an outpatient basis. The patient has no current abdominal pain, and her elevated LFTs are not consistent with an obstructive pathology. I do not believe this patient is suffering from any ACUTE biliary pathology. I believe the patient's elevated liver enzymes + WBC count are secondary to a viral pathology. I explained my physical exam findings as well as all test results to the patient. I answered all questions asked by the patient. Patient received 2 liters of IV fluid and 2 grams of magnesium which she stated helped her symptoms some. Patient's repeat magnesium level was normal. Patient was unable to tolerate anything by mouth even after receiving anti nausea medication. I spoke with the hospitalist team who agreed to admission. Patient verbalized understanding and agreement with this treatment plan and admission. Differential Diagnosis Differential Diagnoses: The differential diagnosis associated with the presentation includes Nausea Vomiting Viral illness Enteritis Hypomganesemia Admission/Observation Consideration of admission/observation: Escalation of care including admission/observation considered Patient admitted as noted in the MDM Rationale portion of this note. Consult Healthcare Provider Management of the patient was discussed with: Hospitalist (agreed to admission as noted in the MDM Rationale portion of this note. ) Lab Data [facility] Lab Attestation statement: I reviewed the patient's lab results. My interpretation of these results are in the MDM Rationale portion of this note. 04/14/25 07:42 04/14/25 08:41 Labs: Lab Results 04/14/25 04/14/25 04/14/25 Range/Units 07:14 07:42 08:41 WBC 11.6 H (4.8-10.8) X10*3/uL RBC 4.12 L (4.20-5.50) X10*6/uL Hgb 14.0 (12.0-16.0) g/dl Hct 40.1 (37.0-47.0) % MCV 97.3 (80.0-98.0) fL MCH 34.0 H (27.0-33.0) pg MCHC 34.9 (31.0-35.0) g/dl RDW 12.7 (11.0-16.0) % Plt Count 257 (160-400) X10*3/uL MPV 10.7 (9.4-12.3) fL Immature Gran % (Auto) 0.7 H (0.0-0.4) % Neut % (Auto) 79.1 H (45-73) % Lymph % (Auto) 10.3 L (20-40) % [place] % (Auto) 7.8 (2-11) % Eos % (Auto) 1.5 (0-4) % Baso % (Auto) 0.6 (0-2) % Lymph # (Auto) 1.2 (1.2-4.9) X10*3/uL [place] # (Auto) 0.9 (0.1-1.2) X10*3/uL Eos # (Auto) 0.2 (0.0-0.4) X10*3/uL Baso # (Auto) 0.1 (0.0-0.2) X10*3/uL Abs Immat Gran (auto) 0.08 H (0.00-0.03) X10*3/uL Absolute Neuts (auto) 9.2 H (2.0-8.3) x10*3/uL Absolute Nucleated RBC 0.000 (0.0-0.012) X10*3/uL Nucleated RBC % (auto) 0.0 (0.0-0.2) /100WBC Sodium 140 (135-145) mmol/L Potassium 3.4 (3.3-5.1) mmol/L Chloride 112 H (96-108) mmol/L Carbon Dioxide 18 L (22-29) mmol/L Anion Gap 13 (12-20) BUN 23 H (9-16) mg/dL Creatinine 1.05 (0.5-1.4) mg/dL Estim Creat Clear Calc 40.5 Estimated GFR 51 POC Glucose 152 H (60-115) mg/dL Random Glucose 141 H (60-115) mg/dL Calcium 8.9 (8.4-10.2) mg/dL Magnesium 1.3 L* (1.6-2.6) mg/dL Total Bilirubin 0.7 (0.0-1.0) mg/dL AST 248 H (5-31) U/L ALT 200 H (0-31) U/L Alkaline Phosphatase 78 (39-117) U/L Total Protein 6.4 L (6.5-8.0) g/dL Albumin 3.8 (3.5-5.0) g/dL TSH 0.72 (0.32-4.0) uIU/mL Free T4 1.29 (0.71-1.85) ng/dL Urine Color Urine Appearance Urine pH (5.0-9.0) Ur Specific [place] (1.005-1.025) Urine Protein (Neg-Trace) mg/dL Urine Glucose (UA) (Negative) mg/dL Urine Ketones (Negative) mg/dL Urine Blood (Negative) Urine Nitrite (Negative) Ur Leukocyte Esterase (Negative) Urine RBC (0-2) /HPF Urine WBC (0-5) /HPF Ur Squamous Epith Cells (0-2) /HPF Urine Bacteria (None Seen) Hyaline Casts (0-2) /LPF Influenza Type A (PCR) (Negative) Influenza Type B (PCR) (Negative) RSV RNA Qual (PCR) (Negative) SARS-CoV-2 RNA (RT-PCR) (Negative) 04/14/25 04/14/25 04/14/25 Range/Units 09:20 11:47 12:02 WBC (4.8-10.8) X10*3/uL RBC (4.20-5.50) X10*6/uL Hgb (12.0-16.0) g/dl Hct (37.0-47.0) % MCV (80.0-98.0) fL MCH (27.0-33.0) pg MCHC (31.0-35.0) g/dl RDW (11.0-16.0) % Plt Count (160-400) X10*3/uL MPV (9.4-12.3) fL Immature Gran % (Auto) (0.0-0.4) % Neut % (Auto) (45-73) % Lymph % (Auto) (20-40) % [place] % (Auto) (2-11) % Eos % (Auto) (0-4) % Baso % (Auto) (0-2) % Lymph # (Auto) (1.2-4.9) X10*3/uL [place] # (Auto) (0.1-1.2) X10*3/uL Eos # (Auto) (0.0-0.4) X10*3/uL Baso # (Auto) (0.0-0.2) X10*3/uL Abs Immat Gran (auto) (0.00-0.03) X10*3/uL Absolute Neuts (auto) (2.0-8.3) x10*3/uL Absolute Nucleated RBC (0.0-0.012) X10*3/uL Nucleated RBC % (auto) (0.0-0.2) /100WBC Sodium (135-145) mmol/L Potassium (3.3-5.1) mmol/L Chloride (96-108) mmol/L Carbon Dioxide (22-29) mmol/L Anion Gap (12-20) BUN (9-16) mg/dL Creatinine (0.5-1.4) mg/dL Estim Creat Clear Calc Estimated GFR POC Glucose (60-115) mg/dL Random Glucose (60-115) mg/dL Calcium (8.4-10.2) mg/dL Magnesium 2.2 (1.6-2.6) mg/dL Total Bilirubin (0.0-1.0) mg/dL AST (5-31) U/L ALT (0-31) U/L Alkaline Phosphatase (39-117) U/L Total Protein (6.5-8.0) g/dL Albumin (3.5-5.0) g/dL TSH (0.32-4.0) uIU/mL Free T4 (0.71-1.85) ng/dL Urine Color Yellow Urine Appearance Clear Urine pH 5.5 (5.0-9.0) Ur Specific [place] >= 1.030 H (1.005-1.025) Urine Protein 30 (1+) H (Neg-Trace) mg/dL Urine Glucose (UA) Negative (Negative) mg/dL Urine Ketones 15 (Negative) mg/dL Urine Blood Negative (Negative) Urine Nitrite Negative (Negative) Ur Leukocyte Esterase Small (1+) H (Negative) Urine RBC 0-2 (0-2) /HPF Urine WBC 0-5 (0-5) /HPF Ur Squamous Epith Cells 0-2 (0-2) /HPF Urine Bacteria None Seen (None Seen) Hyaline Casts 0-2 (0-2) /LPF Influenza Type A (PCR) NEGATIVE (Negative) Influenza Type B (PCR) NEGATIVE (Negative) RSV RNA Qual (PCR) NEGATIVE (Negative) SARS-CoV-2 RNA (RT-PCR) NEGATIVE (Negative) Independent Interpretation I performed an independent interpretation of an: CT Scan Interpretation: My interpretation is in agreement with the radiologist's impression of this imaging study. L Report Number: [id number]: Total DLP = 606.00 mGy-cm EXAMINATION: CT ABDOMEN AND PELVIS WITH CONTRAST CLINICAL INFORMATION: Nausea, vomiting. Abdominal pain. COMPARISON: None available. TECHNIQUE: Multidetector volumetric images were obtained from the superior aspect of the liver through the pubic symphysis following administration 85 mL of Omnipaque 350 intravenous contrast. Sagittal and coronal reformatted images were obtained on the technologist's workstation. Oral contrast: No This CT examination was performed using dose optimization techniques as appropriate, variously including the following: *Automated exposure control *Adjustment of mA and/or kV according to patient size (this includes techniques or standardized protocols for targeted exams where dose is matched to indication/reason for exam; i.e. extremities or head) *Use of iterative reconstruction technique DLP: 606 mGy centimeter. FINDINGS: LUNG BASES: No acute airspace disease. LIVER, GALLBLADDER, AND BILIARY TREE: Liver measures 14 cm. Nodular surface. No focal mass. Portal veins and hepatic veins are patent. Status post cholecystectomy. Common bile duct measures 16 mm. Mild intrahepatic biliary ductal dilatation. PANCREAS: No focal mass. No peripancreatic fluid collection. No main pancreatic ductal dilatation. SPLEEN: 9 cm. Less than 10 mm hypodensities. ADRENAL GLANDS: No nodular lesions. KIDNEYS AND URETERS: No hydronephrosis. No gross nephrolithiasis. There is a 15 mm exophytic thin septated hypodensity in the posterior midportion, left kidney. There are few scattered cyst both kidneys. Renal cortical thinning bilaterally. BLADDER: Fluid-filled. GASTROINTESTINAL TRACT: I do not see the appendix. Gas and fluid-filled mildly prominent distal ileal loops. No intestinal obstruction pattern. No intestinal wall thickening. No pneumatosis intestinalis. No pneumoperitoneum. No ascites. No peripheral enhancing fluid collections in the peritoneal cavity. Small hiatal hernia. ABDOMINAL WALL: Small fat-containing umbilical hernia. LYMPH NODES: No lymphadenopathy, mesenteric or retroperitoneal. VASCULAR: Mixed plaques throughout the abdominal aorta wall and iliac arteries. No aneurysm or dissection abdominal aorta. Calcified plaques in the origin of the main renal arteries pronounced on the left side. PELVIC VISCERA: Absent. OSSEOUS STRUCTURES: Multilevel thoracolumbar spondylosis pronounced at L4-5 resulting in central spinal canal and bilateral neuroforamina stenosis. Degenerative changes in the sacroiliac joints, symphysis porus in the coxofemoral joints. No acute fracture. CT/CT abdomen pelvis w IV con IMPRESSION: Mild enteritis should be considered. With no intestinal obstruction pattern. Biliary ductal dilatation of concern etiology. Bosniak type II cysts, left kidney. Cystic lesions, spleen. Statistically may present hemangiomata versus cyst. Central spinal canal and bilateral neuroforamina stenosis at L4-5 on a degenerative basis. Small fat-containing umbilical hernia. Atherosclerosis disease.. Fleischner guidelines were followed. Electronically signed by: Phani Chapman MD 04/14/2025 09:55 AM EDT Dictated By: Phani Boykin MD Signed By: Electronically signed by Phani Boo MD 04/14/25 0903 Radiology Impression Discussion of test interpretation with radiology: I have reviewed the radiologist's reading. Critical Care Time Critical Care Time Critical Care Time: Yes Total Critical Care Time: 36 Attestation: I spent 36 minutes of Critical Care Time with this patient. This does not include time spent on separately reported billable procedures. Discharge Plan Discharge Clinical Impression: Hypomagnesemia, Enteritis, Elevated LFTs Nausea & vomiting Qualifiers: Vomiting type: unspecified Qualified Code(s): R11.2 - Nausea with vomiting, unspecified Diarrhea Qualifiers: Diarrhea type: unspecified type Qualified Code(s): R19.7 - Diarrhea, unspecified Patient Disposition: Admitted As Inpatient Additional Instructions: Your CT scan showed several incidental findings including: Biliary ductal dilatation Bosniak type II cysts of the left kidney Cystic lesions of the spleen - likely hemangiomata vs. cyst Central spinal canal and bilateral neuroforamnia stenosis at L4-5 on a degenerative basis Small fat-containing umbilical hernia Atherosclerotic disease None of these things are likely a cause for your symptoms today however, it is CRUCIAL you follow up on these findings with your primary care provider for continued monitoring and possible specialist referral. Print Language: Moldovan
[2025-04-14 09:12] LABS: Alanine Aminotransferase 200 U/L (0-31); Albumin Level 3.8 g/dL (3.5-5.0); Alkaline Phosphatase 78 U/L (39-117); Anion Gap 13 (12-20); Aspartate Amino Transferase 248 U/L (5-31); Blood Urea Nitrogen 23 mg/dL (9-16); Calcium 8.9 mg/dL (8.4-10.2); Carbon Dioxide 18 mmol/L (22-29); Chloride 112 mmol/L (96-108); Creatinine Clr Calc Pharmacy 40.5; Estimated Glomerular Filt Rate 51; Magnesium 1.3 mg/dL (1.6-2.6); Potassium 3.4 mmol/L (3.3-5.1); Sodium 140 mmol/L (135-145); Total Protein 6.4 g/dL (6.5-8.0)
[2025-04-14] MEDS: iohexoL 350 MG/ML 100 ML INFUS..BTL IV (09:32)
[2025-04-14] MEDS: Magnesium Sulfate/H2O 2 GM/50 ML PIGGYBACK IV (09:41)
[2025-04-14 09:52] LABS: Free T4 (Free Thyroxine) 1.29 ng/dL (0.71-1.85); Thyroid Stimulating Hormone 0.72 uIU/mL (0.32-4.0)
[2025-04-14 10:06] LABS: Resp Syncy Virus RNA Qual PCR NEGATIVE (Negative); SARS COV2 PCR INHOUSE NEGATIVE (Negative)
[2025-04-14 12:12] LABS: Appearance Urine Clear; Glucose Urine UA Negative (Negative); PH 5.5 (5.0-9.0); Specific Gravity - Urine >= 1.030 (1.005-1.025); UMIC TRIGGER UA YES
[2025-04-14 12:26] LABS: Magnesium 2.2 mg/dL (1.6-2.6)
--- NOTE | 2025-04-14 13:47 | PC.NURSE ---
pt unable to tolerate po trial, plan to admit
--- NOTE | 2025-04-14 14:46 | P.HPHOSP_ITS ---
History of Present Illness Date of Service: 04/14/25 Attending physician on admission: Jacey Del Cid Chief Complaint: Nausea vomiting and diarrhea Kayleen Wilson is a 79 years old woman with past medical history significant for type 2 diabetes mellitus on insulin, hypertension, hyperlipidemia, breast cancer status post radiation and lumpectomy; and chronic back pain presents to the emergency department complaining of 9 days history of persistent nonbloody vomiting, nonbloody mucous diarrhea heartburn and upset stomach. She denied abdominal pain, fever, chills or pain with urination. She did not report any acute cardiopulmonary symptoms. She stated that she takes 3 tablets of acetaminophen 650 mg for 3-4 times daily almost every day. She denied recent use of antibiotics or travel history. She mentioned that she had had this issue before. Prior EGD showed a hiatal hernia. Abdominal surgery history is remarkable for hysterectomy, appendectomy and cholecystectomy. In the ED, she was found to have stable vital signs, blood pressure has been elevated, last BP is 193/66. Blood workup showed leukocytosis of 11.6, hemoglobin is 14 and platelets 257. There are no significant electrolyte imbalances except for hypomagnesemia that resolved after magnesium sulfate IV. Transaminases are elevated: AST 248, ALT 200. Bilirubin and alk-phos are normal. TSH is 0.72. Urinalysis showed elevated specific gravity, small leukocyte esterase 1 +with normal WBC. Abdominal pelvis CT scan showed possible mild enteritis changes, urinary drug dilatation of concern, left kidney and liver cystic lesions, bilateral neural foraminal stenosis at L4-5 and small fat containing umbilical hernia ED tx: Zofran 8 mg IV total, NS 2 L bolus, magnesium sulfate 2 g IV Review of Systems 2 Review of Systems: All 12 systems were reviewed and normal except as noted in HPI. [facility] Medical History Elevated cholesterol Breast cancer Hx of radiation therapy Depression Spinal stenosis Degenerative disc disease, cervical Arthritis Back pain HTN (hypertension) Diabetes Disc degeneration, lumbar Lumbar radiculopathy Osteoarthritis Breast cancer, left Surgical History Hx of bilateral cataract extraction History of knee replacement History of carpal tunnel release of both wrists Hx of cholecystectomy Hx of appendectomy Hx of hysterectomy History of lumpectomy of left breast H/O colonoscopy History of total left knee replacement Social History Housing: House Alcohol intake: current Alcohol intake frequency: 0-2 drinks per day Patient Tobacco Use Status: Former Tobacco user Tobacco use type: Cigarette Years Smoked: 50 years ago Smoked in Last 30 Days: No e-Cigarette/Vaping Use: Never Used Second Hand Smoke Exposure: No Use of substances other than those prescribed or required for medical reasons: No Advance Directives: No Advance Directives Information Provided: Yes Do you have a plan to hurt others: No Plan service: No Current occupational status: employed Current occupation: [employer] Current occupational exposures/hazards: No Cognitive needs: No Hearing needs: No Vision needs: Yes Meds Allergies Allergy/AdvReac Type Severity Reaction Status Date / Time cephalexin (From Keflex) Allergy Severe Swelling Verified 04/14/25 06:56 ciprofloxacin (From Cipro) Allergy Severe eye Verified 04/14/25 06:56 swelling penicillin G Allergy Severe Angioedema Verified 04/14/25 06:56 Penicillins Allergy Severe ANGIOEDEMA Verified 04/14/25 06:56 doxycycline Allergy Intermediate Vomiting Verified 04/14/25 06:56 gabapentin Allergy Unknown Verified 04/14/25 06:56 meloxicam Allergy Unknown Verified 04/14/25 06:56 NSAIDS (Non-Steroidal AdvReac Unknown Verified 04/14/25 06:56 Anti-Inflamma Sulfacet-R Allergy Severe Swelling Uncoded 03/03/25 15:53 Active Medications: Current Medications Calcium Carbonate (Calcium Carbonate 750 Mg Tab.Chew) 750 mg PO Q4H PRN PRN Reason: Heartburn Dextrose (Dextrose 50 % 25 Gm/50 Ml Syringe) 25 gm IVPUSH Q15M PRN; Protocol PRN Reason: per Hypoglycemia Standing Ord. Enoxaparin Sodium (Enoxaparin Sodium 40 Mg/0.4 Ml Syringe) 40 mg SUBCUT Q24H [facility] Glucose (Glucose Gel 15 Gm Gel..Gram.) 15 gm PO Q15M PRN; Protocol PRN Reason: per Hypoglycemia Standing Ord. Lactated Ringer's (Lr) 1,000 mls @ 100 mls/hr IVCONT .Q10H KIMBERLY Stop: 04/15/25 00:29 Insulin Human Lispro (Insulin Lispro 100 Unit/Ml 3 Ml Vial) 0 unit SUBCUT QIDACHS [facility]; Protocol Melatonin (Melatonin 3 Mg Tablet) 6 mg PO BEDTIME PRN PRN Reason: Insomnia Pantoprazole Sodium (Pantoprazole Sodium 40 Mg/10 Ml Vial) 40 mg IVPUSH DAILY [facility] Prochlorperazine Edisylate (Prochlorperazine Edisylate 10 Mg/2 Ml Vial) 5 mg IVPUSH Q6H PRN PRN Reason: Nausea and Vomiting Sodium Chloride (0.9 % Sodium Chloride Flush 3 Ml Syringe) 3 ml IVFLUSH QSHIFT [facility] Home Medications ?Medication ?Instructions ?Recorded ?Confirmed ?Last Taken ?Type acetaminophen 650 mg 1,300 mg PO Q8H PRN Pain 04/14/25 Unknown History tablet,extended release atorvastatin 10 mg tablet 10 mg PO BEDTIME 04/14/2504/06/25 History bupropion HCl 100 mg tablet 100 mg PO BEDTIME 04/14/25 04/14/25 04/06/25 History bupropion HCl 100 mg tablet 200 mg PO DAILY 04/14/25 0 04/14/25 04/06/25 History gabapentin 100 mg capsule 100 mg PO DAILY 04/14/2504/06/25 History gabapentin 100 mg capsule 200 mg PO BEDTIME 04/14/25 0 04/14/25 04/06/25 History insulin glargine 100 unit/mL (3 10 - 12 unit subcut BE DTIME 04/14/25 04/14/25 04/06/25 History mL) subcutaneous pen (Lantus Solostar U-100 Insulin) levothyroxine 50 mcg tablet 50 mcg PO DAILY@0600 04/1404/14/25 04/06/25 History lidocaine 5 % topical patch 1 patch topical DAILY PRN Pain 04/14/25 04/14/25 Unknown History Physical Exam 2 Vital Signs and Narrative: Vital Signs: Last Vital Signs Temp 97.7 F 04/14/25 07:14 Pulse 76 04/14/25 13:11 Resp 13 04/14/25 13:11 BP 193/66 H 04/14/25 13:11 Pulse Ox 99 04/14/25 13:11 O2 Del Method Room Air 04/14/25 13:11 BMI result Body Mass Index 32.2 Constitutional - Awake and Alert, No apparent distress HEENT - PER, EOMI Heart - S1S2, RRR, No edema Lungs - Normal lung expansion, Normal respiratory effort, No respiratory distress, CTA bilaterally Abdomen - NT / ND; increased bowel sounds BS; No rebound or guarding Extremities - no calf tenderness bilaterally, no swelling Musculoskeletal - Normal inspection, normal ROM Skin - Warm/Dry Neurological - Alert & oriented x3. Psychological - Appropriate affect Results Labs 04/14/25 07:42 04/14/25 08:41 Labs: Laboratory Results - last 24 hr 04/14/25 04/14/25 04/14/25 07:14 07:42 08:41 MCV 97.3 MCH 34.0 H MCHC 34.9 RDW 12.7 Plt Count 257 MPV 10.7 Immature Gran % (Auto) 0.7 H Neut % (Auto) 79.1 H Lymph % (Auto) 10.3 L [place] % (Auto) 7.8 Eos % (Auto) 1.5 Baso % (Auto) 0.6 Lymph # (Auto) 1.2 [place] # (Auto) 0.9 Eos # (Auto) 0.2 Baso # (Auto) 0.1 Abs Immat Gran (auto) 0.08 H Absolute Neuts (auto) 9.2 H Absolute Nucleated RBC 0.000 Nucleated RBC % (auto) 0.0 Anion Gap 13 Estim Creat Clear Calc 40.5 Estimated GFR 51 POC Glucose 152 H Random Glucose 141 H Calcium 8.9 Magnesium 1.3 L* Total Bilirubin 0.7 AST 248 H ALT 200 H Alkaline Phosphatase 78 Total Protein 6.4 L Albumin 3.8 TSH 0.72 Free T4 1.29 Urine Color Urine Appearance Urine pH Ur Specific Williamson Urine Protein Urine Glucose (UA) Urine Ketones Urine Blood Urine Nitrite Ur Leukocyte Esterase Urine RBC Urine WBC Ur Squamous Epith Cells Urine Bacteria Hyaline Casts Influenza Type A (PCR) Influenza Type B (PCR) RSV RNA Qual (PCR) SARS-CoV-2 RNA (RT-PCR) 04/14/25 04/14/25 04/14/25 09:20 11:47 12:02 MCV MCH MCHC RDW Plt Count MPV Immature Gran % (Auto) Neut % (Auto) Lymph % (Auto) Menard % (Auto) Eos % (Auto) Baso % (Auto) Lymph # (Auto) [place] # (Auto) Eos # (Auto) Baso # (Auto) Abs Immat Gran (auto) Absolute Neuts (auto) Absolute Nucleated RBC Nucleated RBC % (auto) Anion Gap Estim Creat Clear Calc Estimated GFR POC Glucose Random Glucose Calcium Magnesium 2.2 Total Bilirubin AST ALT Alkaline Phosphatase Total Protein Albumin TSH Free T4 Urine Color Yellow Urine Appearance Clear Urine pH 5.5 Ur Specific Williamson >= 1.030 H Urine Protein 30 (1+) H Urine Glucose (UA) Negative Urine Ketones 15 Urine Blood Negative Urine Nitrite Negative Ur Leukocyte Esterase Small (1+) H Urine RBC 0-2 Urine WBC 0-5 Ur Squamous Epith Cells 0-2 Urine Bacteria None Seen Hyaline Casts 0-2 Influenza Type A (PCR) NEGATIVE Influenza Type B (PCR) NEGATIVE RSV RNA Qual (PCR) NEGATIVE SARS-CoV-2 RNA (RT-PCR) NEGATIVE Imaging Radiologist's Impressions: Impressions Abdomen/Pelvis CT 04/14/25 08:26 IMPRESSION: Mild enteritis should be considered. With no intestinal obstruction pattern. Biliary ductal dilatation of concern etiology. Bosniak type II cysts, left kidney. Cystic lesions, spleen. Statistically may present hemangiomata versus cyst. Central spinal canal and bilateral neuroforamina stenosis at L4-5 on a degenerative basis. Small fat-containing umbilical hernia. Atherosclerosis disease.. Fleischner guidelines were followed. Electronically signed by: Phani Chapman MD 04/14/2025 09:55 AM EDT Assessment and Plan (1) Enteritis: Status: Acute (2) Uncontrolled hypertension: Status: Acute Plan Kayleen Wilson is a 79 y/o woman presents with: Nausea, vomiting and diarrhea causing dehydration, enteritis of unknown etiology. Colonoscopy/EGD March 2024 showed hiatal hernia, diverticulosis and internal hemorrhoids. Advanced diet as tolerated. Protonix 40 mg IV daily. Supportive therapy with IV fluids and antiemetic therapy. Check C diff, GI panel and lipase. If symptoms persist we will consider GI consult. Transaminitis. Check acetaminophen levels and hepatitis panel. Hold Tylenol and atorvastatin. Continue to monitor transaminase. Uncontrolled hypertension, patient has not been taking her home meds due to ongoing nausea and vomiting. Carvedilol 25 mg p.o. stat 10 b.i.d.. Type 2 diabetes mellitus. BG checks before meals and bedtime. Hold metformin. Insulin sliding scale for now. Common bile duct dilatation, normal bilirubin and alk-phos. Status post cholecystectomy. Hyperlipidemia. Atorvastatin on hold due to elevated transaminases. Depression. Continue bupropion. Hypothyroidism. TSH is normal today, 0.72. Continue levothyroxine. Chronic back pain/central spinal canal and bilateral neuraforamina stenosis at L4-5. Lidocaine patches as needed. DVT prophylaxis: Lovenox Code status: Full Patient will need hospitalization for at least 2 midnights for intractable GI symptoms with supportive therapy: IV fluids and antiemetic therapy. Quality Stroke Does the patient have a stroke diagnosis?: No VTE Prior VTE?: No VTE Risk Level:: Medical - moderate - high VTE Device Contraindication: Treatment Not Indicated VTE Drug Contraindication: N/A - Med Ordered
[2025-04-14] MEDS: Lactated Ringers 1,000 ML 100 ML IVCONT (14:51)
[2025-04-14 15:07] LABS: Lipase 42 U/L (8-78)
[2025-04-14 15:11] LABS: Acetaminophen LAB < 3 mcg/mL (<30); Salicylate < 5.0 mg/dL (15-30)
--- NOTE | 2025-04-14 15:18 | PHA.MEDREC ---
Pharmacy Consult ? Medication Reconciliation Pharmacy has completed the medication reconciliation. Spoke with pt and she confirmed her medications. Per pt she takes, Bupropion 100mg tab 2 tabs (200mg) in the morning and 1 tab (100mg) at bedtime, Gabapentin 100mg 1 tab (100mg) in the morning and 2 tabs (200mg) at bedtime and Lantus 10-12 units at bedtime; depending on how much she ate in her day. Pt states she has not been able to take any of her medications since last Friday.
--- NOTE | 2025-04-14 15:23 | PHA.MEDREC ---
Addendum entered by Estephania Morales RPh 04/14/25 16:16: Spoke to patient and confirmed with her multiple times that she takes bupropion 2 tablets in the morning and 1 tablet in the evening even though pharmacy claims have been consistently for 2 tablets/day. MED REC REVIEWED BY [facility]. Original Note: Pharmacy Consult ? Medication Reconciliation Pharmacy has completed the medication reconciliation. Spoke with pt and she confirmed her medications. Per pt she takes, Bupropion 100mg tab 2 tabs (200mg) in the morning and 1 tab (100mg) at bedtime, Gabapentin 100mg 1 tab (100mg) in the morning and 2 tabs (200mg) at bedtime and Lantus 10-12 units at bedtime; depending on how much she ate in her day. Pt states she takes Acetaminophen Arthritis 650mg tabs 3 tabs Q4H PRN pain. Pt states she has not been able to take any of her medications since last Friday.
[2025-04-14 17:15] LABS: Glucose, Whole Blood 119 mg/dL (60-115)
[2025-04-14 18:13] LABS: Venous Blood Gas Refer to POC result
[2025-04-14 18:15] LABS: VBG HCO3 18 mmol/L (22-26); VBG O2 % Saturation 70.0 %
[2025-04-14 18:27] LABS: INTERNATIONAL NORM RATIO 1.0 (0.9-1.1); Prothrombin Time 10.9 SEC (10.9-12.4)
[2025-04-14 20:47] LABS: Glucose, Whole Blood 116 mg/dL (60-115)
[2025-04-15 04:00] VITALS: BP 170/64; PULSE 71; RESP 17; TEMP 36.6; O2SAT 99
[2025-04-15 04:08] LABS: HBS Num1 0.12 mIU/mL (0-7.99); HBc Num1 0.08 S/CO (0.00-0.79); HBsAGNum1 0.30 S/CO (0.00-0.99); Hepatitis A Antibody IgM 0.43 Index (0-0.79); Hepatitis B Surface Antigen Negative (Negative); ~HepC Num1 0.11 S/CO (0.00-0.79); ~Hepatitis A Antibody IgM Nonreactive (Nonreactive); ~Hepatitis B Surface Antibody NONREACTIVE (Nonreactive); ~Hepatitis C Antibody Nonreactive (Nonreactive)
[2025-04-15 06:20] LABS: MANUAL DIFF FLAG NO
[2025-04-15 06:33] LABS: Hematocrit 33.7 % (37.0-47.0); Hemoglobin 11.5 g/dl (12.0-16.0); Imm Gran Abs Auto 0.03 X10*3/uL (0.00-0.03); Imm Gran Pct Auto 0.5 % (0.0-0.4); Lymphocytes Absolute Auto 1.2 X10*3/uL (1.2-4.9); Mean Corpuscular HGB Conc 34.1 g/dl (31.0-35.0); Mean Corpuscular Hemoglobin 33.4 pg (27.0-33.0); Mean Corpuscular Volume 98.0 fL (80.0-98.0); NRBC Abs Auto 0.000 X10*3/uL (0.0-0.012); NRBC Pct Auto 0.0 /100WBC (0.0-0.2); Platelet Count 213 X10*3/uL (160-400); Red Blood Count 3.44 X10*6/uL (4.20-5.50); White Blood Count 5.8 X10*3/uL (4.8-10.8)
[2025-04-15 06:43] LABS: Alanine Aminotransferase 150 U/L (0-31); Albumin Level 3.3 g/dL (3.5-5.0); Alkaline Phosphatase 68 U/L (39-117); Anion Gap 11 (12-20); Aspartate Amino Transferase 141 U/L (5-31); Blood Urea Nitrogen 12 mg/dL (9-16); Calcium 8.7 mg/dL (8.4-10.2); Carbon Dioxide 21 mmol/L (22-29); Chloride 115 mmol/L (96-108); Creatinine Clr Calc Pharmacy 42.1; Estimated Glomerular Filt Rate 53; Magnesium 1.7 mg/dL (1.6-2.6); Potassium 3.2 mmol/L (3.3-5.1); Sodium 144 mmol/L (135-145); Total Protein 5.7 g/dL (6.5-8.0)
[2025-04-15 07:23] LABS: Glucose, Whole Blood 128 mg/dL (60-115)
[2025-04-15 07:35] VITALS: BP 146/67; PULSE 63; RESP 17; TEMP 37.2; O2SAT 99
[2025-04-15] MEDS: 0.9 % Sodium Chloride Flush 3 ML SYRINGE IVFLUSH ×3 (08:36→23:53)
[2025-04-15 10:59] LABS: Glucose, Whole Blood 156 mg/dL (60-115)
--- NOTE | 2025-04-15 12:50 | MHC.CM.PN ---
IMM 04/15/25 Lives on 1st floor of her 2 family home. Her tenant assists PRN. She is independent with equipment: cane, Shower chair and grab bars. She works part-time and still drives. PCP John Herrera DP home self care. She will arrange for one of her sons to provide transportation home.
--- NOTE | 2025-04-15 14:58 | P.PNIM_ITS ---
Subjective Subjective Date of Service: 04/15/25 Interval History: Seen and examined this morning Follow-up for nausea/vomiting/diarrhea ?Not feeling well? Denies abdominal pain, no diarrhea since admission Review of Systems Review of Systems: Yes all other systems are reviewed and are negative Constitutional Constitutional: Denies chills and Denies fever(s) Physical Exam 2 Vital Signs: Vital Signs: Last Vital Signs Temp 98.9 F 04/15/25 07:35 Pulse 63 04/15/25 07:35 Resp 17 04/15/25 07:35 BP 146/67 H 04/15/25 07:35 Pulse Ox 99 04/15/25 07:35 O2 Del Method Room Air 04/15/25 07:35 BMI result Body Mass Index 32.2 Const: General: comfortable, alert and awake Nutritional Appearance: a verage body habitus Orientation/consciousness: patient oriented x3 Resp: Effort & Inspection: normal respiratory effort GI: Inspection: No distended Palpation (GI): nontender Neuro: Other: Grossly nonfocal General: patient oriented x3 Objective Data Active Medications Atorvastatin Calcium (Atorvastatin Calcium 10 Mg Tablet) 10 mg PO BEDTIME [facility] Last Admin: 04/14/25 20:37 Dose: 10 mg Documented By: SIVAN Bupropion HCl (Bupropion Hcl 100 Mg Tablet) 200 mg PO DAILY [facility] Last Admin: 04/15/25 08:35 Dose: 200 mg Documented By: KARIE Bupropion HCl (Bupropion Hcl 100 Mg Tablet) 100 mg PO BEDTIME [facility] Last Admin: 04/14/25 20:38 Dose: 100 mg Documented By: SIVAN Calcium Carbonate (Calcium Carbonate 750 Mg Tab.Chew) 750 mg PO Q4H PRN PRN Reason: Heartburn Carvedilol (Carvedilol 25 Mg Tablet) 25 mg PO BID [facility]IM[facility]; Protocol Last Admin: 04/15/25 08:35 Dose: 25 mg Documented By: KARIE Dextrose (Dextrose 50 % 25 Gm/50 Ml Syringe) 25 gm IVPUSH Q15M PRN; Protocol PRN Reason: per Hypoglycemia Standing Ord. Enoxaparin Sodium (Enoxaparin Sodium 40 Mg/0.4 Ml Syringe) 40 mg SUBCUT Q24H [facility] Last Admin: 04/15/25 08:37 Dose: 40 mg Documented By: KARIE Gabapentin (Gabapentin 100 Mg Capsule) 200 mg PO BEDTIME [facility] Last Admin: 04/14/25 20:38 Dose: 200 mg Documented By: SIVAN Gabapentin (Gabapentin 100 Mg Capsule) 100 mg PO DAILY [facility] Last Admin: 04/15/25 08:35 Dose: 100 mg Documented By: KARIE Glucose (Glucose Gel 15 Gm Gel..Gram.) 15 gm PO Q15M PRN; Protocol PRN Reason: per Hypoglycemia Standing Ord. Insulin Human Lispro (Insulin Lispro 100 Unit/Ml 3 Ml Vial) 0 unit SUBCUT QIDACHS [facility]; Protocol Last Admin: 04/15/25 12:55 Dose: Not Given Documented By: KARIE Non-Admin Reason: Pt refused lunch Levothyroxine Sodium (Levothyroxine Sodium 50 Mcg Tablet) 50 mcg PO DAILY@0600 [facility] Last Admin: 04/15/25 05:45 Dose: 50 mcg Documented By: SIVAN Lidocaine (Lidocaine 4 % Patch Adh..Patch) 1 patch TRANSDERMA DAILY PRN PRN Reason: back pain Melatonin (Melatonin 3 Mg Tablet) 6 mg PO BEDTIME PRN PRN Reason: Insomnia Pantoprazole Sodium (Pantoprazole Sodium 40 Mg/10 Ml Vial) 40 mg IVPUSH DAILY [facility] Last Admin: 04/15/25 08:34 Dose: 40 mg Documented By: KARIE Prochlorperazine Edisylate (Prochlorperazine Edisylate 10 Mg/2 Ml Vial) 5 mg IVPUSH Q6H PRN PRN Reason: Nausea and Vomiting Last Admin: 04/15/25 08:32 Dose: 5 mg Documented By: KARIE Sitagliptin Phosphate (Sitagliptin Phosphate 100 Mg Tablet) 100 mg PO DAILY [facility] Last Admin: 04/15/25 08:35 Dose: 100 mg Documented By: KARIE Sodium Chloride (0.9 % Sodium Chloride Flush 3 Ml Syringe) 3 ml IVFLUSH QSHIFT [facility] Last Admin: 04/15/25 08:36 Dose: 3 ml Documented By: KARIE Labs 04/15/25 05:48 04/15/25 05:48 Labs: Laboratory Results - last 24 hr 04/14/25 04/14/25 04/14/25 14:45 17:11 18:07 MCV MCH MCHC RDW Plt Count MPV Immature Gran % (Auto) Neut % (Auto) Lymph % (Auto) [place] % (Auto) Eos % (Auto) Baso % (Auto) Lymph # (Auto) [place] # (Auto) Eos # (Auto) Baso # (Auto) Abs Immat Gran (auto) Absolute Neuts (auto) Absolute Nucleated RBC Nucleated RBC % (auto) PT 10.9 INR 1.0 VBG pH VBG pCO2 VBG pO2 VBG HCO3 VBG O2 Saturation VBG Base Excess Anion Gap Estim Creat Clear Calc Estimated GFR POC Glucose 119 H Random Glucose Calcium Magnesium Total Bilirubin AST ALT Alkaline Phosphatase Total Protein Albumin Lipase 42 Salicylates < 5.0 L Acetaminophen < 3 Hepatitis A IgM Ab Nonreactive Hep Bs Antigen Negative Hep Bs Antibody NONREACTIVE Hep B Core Total Ab Nonreactive Hepatitis C Ab (EIA) Nonreactive 04/14/25 04/14/25 04/15/25 18:11 20:43 05:48 MCV 98.0 MCH 33.4 H MCHC 34.1 RDW 13.0 Plt Count 213 MPV 10.2 Immature Gran % (Auto) 0.5 H Neut % (Auto) 61.1 Lymph % (Auto) 20.7 [place] % (Auto) 12.5 H Eos % (Auto) 4.5 H Baso % (Auto) 0.7 Lymph # (Auto) 1.2 [place] # (Auto) 0.7 Eos # (Auto) 0.3 Baso # (Auto) 0.0 Abs Immat Gran (auto) 0.03 Absolute Neuts (auto) 3.6 Absolute Nucleated RBC 0.000 Nucleated RBC % (auto) 0.0 PT INR VBG pH 7.35 VBG pCO2 32 VBG pO2 41 VBG HCO3 18 L VBG O2 Saturation 70.0 VBG Base Excess -6.0 Anion Gap 11 L Estim Creat Clear Calc 42.1 Estimated GFR 53 POC Glucose 116 H Random Glucose 130 H Calcium 8.7 Magnesium 1.7 Total Bilirubin 0.5 AST 141 H ALT 150 H Alkaline Phosphatase 68 Total Protein 5.7 L Albumin 3.3 L Lipase Salicylates Acetaminophen Hepatitis A IgM Ab Hep Bs Antigen Hep Bs Antibody Hep B Core Total Ab Hepatitis C Ab (EIA) 04/15/25 04/15/25 07:14 10:53 MCV MCH MCHC RDW Plt Count MPV Immature Gran % (Auto) Neut % (Auto) Lymph % (Auto) [place] % (Auto) Eos % (Auto) Baso % (Auto) Lymph # (Auto) [place] # (Auto) Eos # (Auto) Baso # (Auto) Abs Immat Gran (auto) Absolute Neuts (auto) Absolute Nucleated RBC Nucleated RBC % (auto) PT INR VBG pH VBG pCO2 VBG pO2 VBG HCO3 VBG O2 Saturation VBG Base Excess Anion Gap Estim Creat Clear Calc Estimated GFR POC Glucose 128 H 156 H Random Glucose Calcium Magnesium Total Bilirubin AST ALT Alkaline Phosphatase Total Protein Albumin Lipase Salicylates Acetaminophen Hepatitis A IgM Ab Hep Bs Antigen Hep Bs Antibody Hep B Core Total Ab Hepatitis C Ab (EIA) Assessment and Plan (1) Enteritis: Status: Acute Plan Kayleen Wilson is a 79 y/o woman presents with: Nausea, vomiting and diarrhea causing dehydration enteritis of unknown etiology Colonoscopy/EGD March 2024 showed hiatal hernia, diverticulosis and internal hemorrhoids Protonix 40 mg IV daily. Supportive therapy with IV fluids and antiemetic therapy. Check C diff, GI panel and lipase. If symptoms persist we will consider GI consult. Transaminitis. acetaminophen levels and hepatitis panel negative Hold Tylenol and atorvastatin. Continue to monitor transaminase. Uncontrolled hypertension, patient has not been taking her home meds due to ongoing nausea and vomiting. Resolved with resuming home medications Type 2 diabetes mellitus. BG checks before meals and bedtime. Hold metformin. Insulin sliding scale for now. Common bile duct dilatation, normal bilirubin and alk-phos. Status post cholecystectomy. Hyperlipidemia. Atorvastatin on hold due to elevated transaminases. Depression. Continue bupropion. Hypothyroidism. TSH is normal today, 0.72. Continue levothyroxine. Chronic back pain/central spinal canal and bilateral neuraforamina stenosis at L4-5. Lidocaine patches as needed. DVT prophylaxis: Lovenox Code status: Full Patient will need hospitalization for at least 2 midnights for intractable GI symptoms with supportive therapy: IV fluids and antiemetic therapy. Quality Stroke Does the patient have a stroke diagnosis?: No VTE Prior VTE?: No VTE Risk Level:: Medical - moderate - high VTE Device Contraindication: Treatment Not Indicated VTE Drug Contraindication: N/A - Med Ordered
[2025-04-15 15:33] VITALS: BP 123/52; PULSE 61; RESP 17; TEMP 37.3; O2SAT 99
[2025-04-15 16:31] LABS: Glucose, Whole Blood 126 mg/dL (60-115)
[2025-04-15] MEDS: Potassium Chloride Packet 20 MEQ PACKET 40 MEQ PO (17:15)
[2025-04-15 19:26] VITALS: BP 141/66; PULSE 65; RESP 17; TEMP 36.7; O2SAT 98
[2025-04-15 20:26] LABS: Glucose, Whole Blood 146 mg/dL (60-115)
[2025-04-15 20:45] VITALS: BP 121/62; PULSE 66
[2025-04-16] VITALS (8 sets, daily range): BP systolic 119–198; BP diastolic 58–90; PULSE 59–64; RESP 14–18; TEMP 36.4–37.2; O2SAT 94–99
--- NOTE | 2025-04-16 00:29 | PC.NURSE ---
patient aware she is closer to being discharged and requests prescription to take home for Compazine.
[2025-04-16 07:34] LABS: Alanine Aminotransferase 115 U/L (0-31); Albumin Level 3.2 g/dL (3.5-5.0); Alkaline Phosphatase 76 U/L (39-117); Anion Gap 10 (12-20); Aspartate Amino Transferase 77 U/L (5-31); Blood Urea Nitrogen 13 mg/dL (9-16); Calcium 8.8 mg/dL (8.4-10.2); Carbon Dioxide 22 mmol/L (22-29); Chloride 117 mmol/L (96-108); Creatinine Clr Calc Pharmacy 37.0; Estimated Glomerular Filt Rate 46; Potassium 3.6 mmol/L (3.3-5.1); Sodium 145 mmol/L (135-145); Total Protein 5.5 g/dL (6.5-8.0)
[2025-04-16 07:41] LABS: Glucose, Whole Blood 123 mg/dL (60-115)
[2025-04-16] MEDS: 0.9 % Sodium Chloride Flush 3 ML SYRINGE IVFLUSH ×3 (08:41→20:55)
[2025-04-16 11:10] LABS: Glucose, Whole Blood 141 mg/dL (60-115)
--- NOTE | 2025-04-16 14:07 | HO.PM.IMPN ---
Subjective Subjective Date of Service: 04/16/25 Interval History: Seen and examined this morning Follow-up for nausea/vomiting Having nausea no further vomiting, no further diarrhea Tolerating some food Review of Systems Review of Systems: Yes all other systems are reviewed and are negative Constitutional Constitutional: Denies chills and Denies fever(s) Physical Exam Vital Signs: Vital Signs: Last Vital Signs Temp 99.0 F 04/16/25 07:28 Pulse 64 04/16/25 09:58 Resp 14 04/16/25 07:28 BP 172/62 H 04/16/25 09:58 Pulse Ox 98 04/16/25 08:22 O2 Del Method Room Air 04/16/25 08:22 BMI result Body Mass Index 32.2 Const: General: comfortable, alert and awake Nutritional Appearance: average body habitus Orientation/consciousness: patient oriented x3 Resp: Effort & Inspection: normal respiratory effort GI: Inspection: No distended Palpation (GI): nontender Neuro: Other: Grossly nonfocal General: patient oriented x3 Objective Data Active Medications Bupropion HCl (Bupropion Hcl 100 Mg Tablet) 200 mg PO DAILY [facility] Last Admin: 04/16/25 08:41 Dose: 200 mg Documented By: CAPRI Bupropion HCl (Bupropion Hcl 100 Mg Tablet) 100 mg PO BEDTIME [facility] Last Admin: 04/15/25 20:45 Dose: 100 mg Documented By: SHIRA Calcium Carbonate (Calcium Carbonate 750 Mg Tab.Chew) 750 mg PO Q4H PRN PRN Reason: Heartburn Carvedilol (Carvedilol 25 Mg Tablet) 25 mg PO BID [facility]; Protocol Last Admin: 04/16/25 08:41 Dose: 25 mg Documented By: CAPRI Dextrose (Dextrose 50 % 25 Gm/50 Ml Syringe) 25 gm IVPUSH Q15M PRN; Protocol PRN Reason: per Hypoglycemia Standing Ord. Enoxaparin Sodium (Enoxaparin Sodium 40 Mg/0.4 Ml Syringe) 40 mg SUBCUT Q24H [facility] Last Admin: 04/16/25 08:39 Dose: 40 mg Documented By: CAPRI Gabapentin (Gabapentin 100 Mg Capsule) 200 mg PO BEDTIME [facility] Last Admin: 04/15/25 20:46 Dose: 200 mg Documented By: SHIRA Gabapentin (Gabapentin 100 Mg Capsule) 100 mg PO DAILY [facility] Last Admin: 04/16/25 08:42 Dose: 100 mg Documented By: CAPRI Glucose (Glucose Gel 15 Gm Gel..Gram.) 15 gm PO Q15M PRN; Protocol PRN Reason: per Hypoglycemia Standing Ord. Insulin Human Lispro (Insulin Lispro 100 Unit/Ml 3 Ml Vial) 0 unit SUBCUT QIDACHS [facility]; Protocol Last Admin: 04/16/25 11:31 Dose: Not Given Documented By: CAPRI Non-Admin Reason: No Insulin Coverage Levothyroxine Sodium (Levothyroxine Sodium 50 Mcg Tablet) 50 mcg PO DAILY@0600 [facility] Last Admin: 04/16/25 05:58 Dose: 50 mcg Documented By: JM Lidocaine (Lidocaine 4 % Patch Adh..Patch) 1 patch TRANSDERMA DAILY PRN PRN Reason: back pain Melatonin (Melatonin 3 Mg Tablet) 6 mg PO BEDTIME PRN PRN Reason: Insomnia Last Admin: 04/15/25 22:51 Dose: 6 mg Documented By: SHIRA Pantoprazole Sodium (Pantoprazole Sodium 40 Mg/10 Ml Vial) 40 mg IVPUSH DAILY [facility] Last Admin: 04/16/25 08:36 Dose: 40 mg Documented By: CAPRI Prochlorperazine Edisylate (Prochlorperazine Edisylate 10 Mg/2 Ml Vial) 5 mg IVPUSH Q6H PRN PRN Reason: Nausea and Vomiting Last Admin: 04/16/25 08:29 Dose: 5 mg Documented By: CAPRI Sitagliptin Phosphate (Sitagliptin Phosphate 100 Mg Tablet) 100 mg PO DAILY [facility] Last Admin: 04/16/25 08:42 Dose: 100 mg Documented By: CAPRI Sodium Chloride (0.9 % Sodium Chloride Flush 3 Ml Syringe) 3 ml IVFLUSH QSHIFT [facility] Last Admin: 04/16/25 08:41 Dose: 3 ml Documented By: CAPRI Labs 04/15/25 05:48 04/16/25 06:55 Labs: Laboratory Results - last 24 hr 04/15/25 04/15/25 04/16/25 16:24 20:18 06:55 Hold Purple Top SEE NOTE Anion Gap 10 L Estim Creat Clear Calc 37.0 Estimated GFR 46 POC Glucose 126 H 146 H Random Glucose 113 Calcium 8.8 Total Bilirubin 0.4 Direct Bilirubin 0.2 AST 77 H ALT 115 H Alkaline Phosphatase 76 Total Protein 5.5 L Albumin 3.2 L 04/16/25 04/16/25 07:37 11:07 Hold Purple Top Anion Gap Estim Creat Clear Calc Estimated GFR POC Glucose 123 H 141 H Random Glucose Calcium Total Bilirubin Direct Bilirubin AST ALT Alkaline Phosphatase Total Protein Albumin Assessment and Plan (1) Nausea & vomiting: Status: Acute Plan Kayleen Wilson is a 79 y/o woman presents with: Nausea, vomiting and diarrhea causing dehydration enteritis No further diarrhea, stool studies canceled Slowly improving Continue Supportive therapy with IV fluids and antiemetic therapy. Transaminitis. acetaminophen levels and hepatitis panel negative Trending down Hold Tylenol and atorvastatin Uncontrolled hypertension patient has not been taking her home meds due to ongoing nausea and vomiting. Improved with resuming home medications Type 2 diabetes mellitus. BG checks before meals and bedtime. Hold metformin. Insulin sliding scale for now. Common bile duct dilatation, normal bilirubin and alk-phos. Status post cholecystectomy. Hyperlipidemia. Atorvastatin on hold due to elevated transaminases. Depression. Continue bupropion. Hypothyroidism. TSH is normal today, 0.72. Continue levothyroxine. Chronic back pain/central spinal canal and bilateral neuraforamina stenosis at L4-5. Lidocaine patches as needed. DVT prophylaxis: Lovenox Code status: Full Requires ongoing inpatient stay for intractable GI symptoms with supportive therapy: IV fluids and antiemetic therapy. Quality Stroke Does the patient have a stroke diagnosis?: No VTE Prior VTE?: No VTE Risk Level:: Medical - moderate - high VTE Device Contraindication: Treatment Not Indicated VTE Drug Contraindication: N/A - Med Ordered
[2025-04-16 16:28] LABS: Glucose, Whole Blood 133 mg/dL (60-115)
[2025-04-16 20:01] LABS: Glucose, Whole Blood 150 mg/dL (60-115)
[2025-04-17 03:01] VITALS: BP 136/62; PULSE 70; RESP 18; TEMP 36.3; O2SAT 97
[2025-04-17 07:25] VITALS: BP 196/76; PULSE 64; RESP 14; TEMP 36.6; O2SAT 98
[2025-04-17 07:27] LABS: Glucose, Whole Blood 127 mg/dL (60-115)
[2025-04-17 08:07] VITALS: BP 186/70; PULSE 60
[2025-04-17] MEDS: 0.9 % Sodium Chloride Flush 3 ML SYRINGE IVFLUSH (08:08)
[2025-04-17 10:36] VITALS: BP 176/82
[2025-04-17 11:04] LABS: Glucose, Whole Blood 140 mg/dL (60-115)
--- NOTE | 2025-04-17 11:44 | PM.DS ---
DS: Providers Provider Date of Service: 04/17/25 Date of admission: 04/14/25 14:25 Date of discharge: 04/17/25 Primary care physician: John Herrera [facility] Attending physician on discharge: [facility] Discharging clinician: Sabrina Thomas DS: Diagnosis Discharge Diagnosis (1) Nausea & vomiting: Status: Acute DS: Summary Hospital Course Hospital Course: From H&P on the day of admission Kayleen Wilson is a 79 years old woman with past medical history significant for type 2 diabetes mellitus on insulin, hypertension, hyperlipidemia, breast cancer status post radiation and lumpectomy; and chronic back pain presents to the emergency department complaining of 9 days history of persistent nonbloody vomiting, nonbloody mucous diarrhea heartburn and upset stomach. She denied abdominal pain, fever, chills or pain with urination. She did not report any acute cardiopulmonary symptoms. She stated that she takes 3 tablets of acetaminophen 650 mg for 3-4 times daily almost every day. She denied recent use of antibiotics or travel history. She mentioned that she had had this issue before. Prior EGD showed a hiatal hernia. Abdominal surgery history is remarkable for hysterectomy, appendectomy and cholecystectomy. In the ED, she was found to have stable vital signs, blood pressure has been elevated, last BP is 193/66. Blood workup showed leukocytosis of 11.6, hemoglobin is 14 and platelets 257. There are no significant electrolyte imbalances except for hypomagnesemia that resolved after magnesium sulfate IV. Transaminases are elevated: AST 248, ALT 200. Bilirubin and alk-phos are normal. TSH is 0.72. Urinalysis showed elevated specific gravity, small leukocyte esterase 1 +with normal WBC. Abdominal pelvis CT scan showed possible mild enteritis changes, urinary drug dilatation of concern, left kidney and liver cystic lesions, bilateral neural foraminal stenosis at L4-5 and small fat containing umbilical hernia ED tx: Zofran 8 mg IV total, NS 2 L bolus, magnesium sulfate 2 g IV Nausea, vomiting and diarrhea causing dehydration possibly due to enteritis. Had no further episodes of diarrhea after admission therefore stool studies were unable to be collected. Patient slowly improved with supportive care/symptomatic treatment. Her diet was advanced and she is currently tolerating a regular diet. Transaminitis. acetaminophen levels and hepatitis panel negative. LFTs slowly trending down. Recommend repeat labs as outpatient. Hold Tylenol and atorvastatin for now Uncontrolled hypertension patient has not been taking her home meds due to ongoing nausea and vomiting. Bp overall Improved with resuming home medications and improvement in vomiting. Time Attestation Discharge Coordination Time (in mins): 30 Quality: Safe Use of Opioids Does Pt have an Active Cancer Diagnosis on the Problem List?: No Quality: Stroke Does the patient have a stroke diagnosis?: No Physical Exam Vital Signs: Vital Signs: Last Vital Signs Temp 97.8 F 04/17/25 07:25 Pulse 60 04/17/25 08:07 Resp 14 04/17/25 07:25 BP 176/82 H 04/17/25 10:36 Pulse Ox 98 04/17/25 07:25 O2 Del Method Room Air 04/17/25 07:25 BMI result Body Mass Index 32.2 Const: General: comfortable, alert and awake Nutritional Appearance: average body habitus Orientation/consciousness: patient oriented x3 Resp: Effort & Inspection: normal respiratory effort GI: Inspection: No distended Palpation (GI): nontender Neuro: Other: Grossly nonfocal General: patient oriented x3 DS: Data Data Completed and Pending Labs on day of discharge: Laboratory Results - last 24 hr 04/16/25 04/16/25 04/17/25 16:24 19:52 07:23 POC Glucose 133 H 150 H 127 H 04/17/25 11:00 POC Glucose 140 H Discharge Plan Discharge Anticipated Discharge Date/Time: 04/17/25 11:49 Patient Disposition: Home, Self-Care Discharge Diagnosis: nausea and vomiting elevated blood pressure elevated LFTs diarrhea Referrals: John Herrera, [employer] [Primary Care Provider, Internal Medicine] Discharge Medications: New ondansetron HCl 4 mg tablet 4 mg PO Q8H PRN (Reason: nausea and vomiting) Qty: 10 0RF Continued Januvia 100 mg tablet 100 mg PO DAILY 90 Days Qty: 90 1RF carvedilol 25 mg tablet 25 mg PO BID Qty: 180 1RF Rx Instructions: must administer with a meal/food lidocaine 5 % adhesive patch,medicated 1 patch topical DAILY PRN (Reason: Pain) levothyroxine 50 mcg tablet 50 mcg PO DAILY@0600 bupropion HCl 100 mg tablet 200 mg PO DAILY gabapentin 100 mg capsule 100 mg PO DAILY bupropion HCl 100 mg tablet 100 mg PO BEDTIME gabapentin 100 mg capsule 200 mg PO BEDTIME insulin glargine [Lantus Solostar U-100 Insulin] 100 unit/mL (3 mL) insulin pen 10 - 12 unit subcut BEDTIME Rx Instructions: 10-12 units depending on how much pt had to eat for the day. Held atorvastatin 10 mg tablet 10 mg PO BEDTIME Hold Instructions: hold until follow up LFTs/discuss with PCP acetaminophen 650 mg Tablet Extended Release 1,300 mg PO Q8H PRN (Reason: Pain) Hold Instructions: hold until repeat LFTs No Action (DME) pen needle, diabetic [Pen Needle] 31 gauge x 5/16 needle See Rx Instructions .Route Qty: 100 1RF Rx Instructions: Use to inject insulin once a day Discharge Orders: Discharge Order (Routine); Ordered 04/17/25 Ordered By: Sabrina Thomas Activity on Discharge: As tolerated Stand Alone Forms: Patient Portal Discharge page Print Language: Zimbabwean Activity Restrictions/Additional Instructions: Your CT scan showed several incidental findings including: Biliary ductal dilatation Bosniak type II cysts of the left kidney Cystic lesions of the spleen - likely hemangiomata vs. cyst Central spinal canal and bilateral neuroforamnia stenosis at L4-5 on a degenerative basis Small fat-containing umbilical hernia Atherosclerotic disease None of these things are likely a cause for your symptoms today however, you should follow up on these findings with your primary care provider for continued monitoring and possible specialist referral. Care Plan Goals: see below Health Concerns: Nausea/vomiting/diarrhea Uncontrolled blood pressure Low magnesium levels-resolved Plan of Treatment: Call to schedule follow-up appointment with PCP. Call to schedule follow-up appointment with GI as needed Zofran as needed for nausea Assessment: see discharge summary Patient Instructions: Acute Nausea and Vomiting (DC), Acute Diarrhea (ED), Hypomagnesemia (ED), Enteritis (ED), Hypertension and Diabetes (ED) Discharge Date/Time: 04/17/25 14:20
[2025-04-17 11:57] VITALS: BP 148/65; PULSE 58
--- NOTE | 2025-04-17 13:01 | MHC.CM.PN ---
PT TO [facility] HOME TODAY WITH NO SERVICES ORDERED SONS TO TRANSPORT
[2025-04-17 14:10] VITALS: BP 141/69; PULSE 63; RESP 16; TEMP 36.6; O2SAT 99
== END 2025-04-17 14:20 | disposition home or self-care (01) | DRG 392 ==
LOC: HO.ED 13:56 → HO.EDOVER 14:32 → HO.S3 14:52
PROVIDERS: Physician Assistant Medical; Admitting Provider Internal Medicine; Emergency Provider Emergency Medicine; PCP Nurse Practitioner Family; Visit Provider Physician Assistant Medical
DX: K52.9 Noninfective gastroenteritis and colitis, unspecified (principal); E11.9 Type 2 diabetes mellitus without complications; I10 Essential (primary) hypertension; E03.9 Hypothyroidism, unspecified; E78.5 Hyperlipidemia, unspecified; F32.A Depression, unspecified; M48.061 Spinal stenosis, lumbar region without neurogenic claudication; G89.29 Other chronic pain; R74.01 Elevation of levels of liver transaminase levels; K83.8 Other specified diseases of biliary tract; E86.0 Dehydration; Z20.822 Contact with and (suspected) exposure to COVID-19; Z85.3 Personal history of malignant neoplasm of breast; Z91.148 Patient's other noncompliance with medication regimen for other reason; Z87.891 Personal history of nicotine dependence; Z79.4 Long term (current) use of insulin; Z79.890 Hormone replacement therapy; Z79.899 Other long term (current) drug therapy
CPT/HCPCS: 36415; 74177; 80048; 80053; 80076; 80143; 80179; 81001; 82803; 82947; 83690; 83735; 84439; 84443; 85025; 85610; 86704; 86706; 86709; 86803; 87340; 87637; 99285; J0737; J1650; J2405; J2470; J3475; J7120; Q9967

== ENCOUNTER → 2025-04-14 08:13 | Outpatient (BNV) | payer OTHER, MEDICARE, SELFPAY | PROVIDERS: PCP Nurse Practitioner Family; Visit Provider Radiology Diagnostic Radiology | DX: R11.11 Vomiting without nausea (principal) | CPT/HCPCS: 74177 ==

== ENCOUNTER → 2025-04-14 14:25 | Outpatient (BNV) | payer OTHER, MEDICARE, SELFPAY | PROVIDERS: Admitting Provider Internal Medicine; Emergency Provider Emergency Medicine; PCP Nurse Practitioner Family; Visit Provider Internal Medicine | DX: R11.2 Nausea with vomiting, unspecified (principal) | CPT/HCPCS: 99223; 99232 ==

== ENCOUNTER 2025-04-21 13:13 | Outpatient (REF) | payer MEDICARE, OTHER, SELFPAY ==
--- OUTSIDE RECORDS SUMMARY | 2024-03-26 07:20 | XMS_ITS ---
Author Organization [facility] Address [address] [place] [address] Care Team Providers Care Slip Bridge Operator Name Role Phone CHANDU CHISHOLM Primary Care Provider Taiwo Azar Unavailable [phone] REASON FOR VISIT diarrhea,wt loss,nausea Problems Problem Type SNOMED Code ICD Code Onset Dates Problem Status W/U Status Risk Notes Problem Diverticular disease of colon (484600119) Diverticulosis of large intestine without perforation or abscess without bleeding (K57.30) Active confirmed Encounters Encounter Location Date Provider Diagnosis [facility] [place] [address] [place], [place] [phone] 03/26/2024 Taiwo Mcintosh Diarrhea R19.7 ; W [...] NANCY VORA CDOB: 7 (79 yo F)Acc No.[id number]:03/26/2024 EGD and COL/MAC Patient: NANCY COHEN Provider: Domo Mcintosh MD :1945 A ge:78 Y S ex:Female Date:03/26/2024 Address:[address] [address] , [place] Pcp:CHANDU CHISHOLM Subjective: * Chief Complaints: * [...] FLW-UP 10 YRS DOCD, Modifiers: 8P , 82853 UPPER GI ENDOSCOPY, BIOPSY * * The named appointment provid er may or may not be the originator of this progress note, and it is not deemed complete until electronically signed by the appointment provider. Sign off status: Pending * Provider: Domo Mcintosh MD Date: 03/26/2024 Generated for Leidy elaine/Manolo/Sunitting on: 04/21/2025 01:24 PM EDT
--- OUTSIDE RECORDS SUMMARY | 2025-04-21 13:25 | XMS_ITS | Encounter Summary ---
Author Organization [facility] Address [address] [place] [id number] Care Team Providers Care Insole And Heel Stiffener Name Role Phone John Herrera MD Primary Care Provider Encounter Details Date Type Department Care Team (Late st Contact Info) Description 02/03/2024 Scanned Document [facility] Department of Internal Medicine & Nephrology [address] [phone] Karson Law MD [address] [place] [phone] Social History Tobacco Use Types Packs/Day Years [...] Description 12/16/2025 10:20 AM EDT Office Visit [facility] Department of Internal Medicine & Nephrology [place] [address] [place] [phone] Karson Law MD [address] [place] [phone] documented as of this encounter Visit Diagnoses Not on filedocumented in this encounter Care Teams Insole And Heel Stiffener Relationship Specialty Start Date End Date John Herrera MD [address] [facility] [place] [address] PCP - General Family Medicine 02/03/24 documented as of this encounter
--- OUTSIDE RECORDS SUMMARY | 2025-04-21 13:25 | XMS_ITS | Clinical Summary ---
Author Organization [facility] Address [address] [place] [phone] Phone Care Team Providers Care Cruise Staff Member Name Role Phone John Herrera NP Primary [...] Description 08/09/2025 11:00 AM EST Office Visit [facility] Hematology Oncology [address] [place] [address] Ceaasr Colon MD [address] [place] [address] Health Maintenance Due Date Last Done Comments [...] complete this topic Insurance MEDICARE [facility] Care Teams Cruise Staff Member Relationship Specialty Start Date End Date John Herrera NP [address] [facility] [place] PCP - General 05/30/23
--- OUTSIDE RECORDS SUMMARY | 2025-04-21 13:25 | XMS_ITS | Encounter Summary ---
Author Organization [facility] Address [address] [place] [address] Phone Care Team Providers Care Barbering Instructor Name Role Phone John Herrera NP Primary Care Provider [phone] Reason for Visit * Reason Comments Med Refill Encounter Details Date Type Department Care Team (Late st Contact Info) Description 11/15/2023 Refill [facility] [address] [place] [phone] Karson Law MD Social History Tobacco Use [...] on filedocumented in this encounter Care Teams Barbering Instructor Relationship Specialty Start Date End Date John Herrera NP [address] [facility] [place] [address] PCP - General Nurse Practitioner 09/05/21 documented as of this encounter
--- OUTSIDE RECORDS SUMMARY | 2025-04-21 13:25 | XMS_ITS | Clinical Summary ---
Author Organization [facility] Address [address] [place] [address] Care Team Providers Care Early Childhood Educator Aide Name Role Phone John Herrera Primary Care Provider [phone] Allergies Active Allergy Reactions Criticality Noted Date [...] age to complete this topic Care Teams Early Childhood Educator Aide Relationship Specialty Start Date End Date John Herrera [address] [facility] [place] [address] PCP - General Family Medicine 05/30/23
[2025-04-21 15:50] LABS: MANUAL DIFF FLAG NO
[2025-04-21 15:54] LABS: Hematocrit 34.7 % (37.0-47.0); Hemoglobin 11.4 g/dl (12.0-16.0); Imm Gran Abs Auto 0.03 X10*3/uL (0.00-0.03); Imm Gran Pct Auto 0.4 % (0.0-0.4); Lymphocytes Absolute Auto 1.2 X10*3/uL (1.2-4.9); Mean Corpuscular HGB Conc 32.9 g/dl (31.0-35.0); Mean Corpuscular Hemoglobin 32.9 pg (27.0-33.0); Mean Corpuscular Volume 100.3 fL (80.0-98.0); NRBC Abs Auto 0.000 X10*3/uL (0.0-0.012); NRBC Pct Auto 0.0 /100WBC (0.0-0.2); Platelet Count 212 X10*3/uL (160-400); Red Blood Count 3.46 X10*6/uL (4.20-5.50); White Blood Count 8.4 X10*3/uL (4.8-10.8)
[2025-04-21 16:26] LABS: Alanine Aminotransferase 31 U/L (0-31); Albumin Level 3.5 g/dL (3.5-5.0); Alkaline Phosphatase 71 U/L (39-117); Anion Gap 13 (12-20); Aspartate Amino Transferase 19 U/L (5-31); Blood Urea Nitrogen 14 mg/dL (9-16); Calcium 8.7 mg/dL (8.4-10.2); Carbon Dioxide 28 mmol/L (22-29); Chloride 105 mmol/L (96-108); Estimated Glomerular Filt Rate 52; Magnesium 1.3 mg/dL (1.6-2.6); Potassium 3.5 mmol/L (3.3-5.1); Sodium 142 mmol/L (135-145); Total Protein 6.2 g/dL (6.5-8.0)
== END 2025-04-21 13:14 | disposition home or self-care (01) ==
LOC: HO.HMGCLDS 13:13
PROVIDERS: PCP Nurse Practitioner Family; Visit Provider Nurse Practitioner Family
DX: E83.42 Hypomagnesemia (principal); R79.89 Other specified abnormal findings of blood chemistry; R11.2 Nausea with vomiting, unspecified
CPT/HCPCS: 36415; 80053; 83735; 85025

== ENCOUNTER 2025-04-26 14:09 | Outpatient (REF) | payer MEDICARE, OTHER, SELFPAY ==
[2025-04-26 16:35] LABS: Alanine Aminotransferase 27 U/L (0-31); Albumin Level 3.9 g/dL (3.5-5.0); Alkaline Phosphatase 88 U/L (39-117); Anion Gap 14 (12-20); Aspartate Amino Transferase 26 U/L (5-31); Blood Urea Nitrogen 24 mg/dL (9-16); Calcium 9.1 mg/dL (8.4-10.2); Carbon Dioxide 28 mmol/L (22-29); Chloride 100 mmol/L (96-108); Estimated Glomerular Filt Rate 51; Lipase 44 U/L (8-78); Magnesium 1.6 mg/dL (1.6-2.6); Potassium 3.8 mmol/L (3.3-5.1); Sodium 138 mmol/L (135-145); Total Protein 6.8 g/dL (6.5-8.0)
[2025-04-27 08:07] LABS: HBS Num1 0.00 mIU/mL (0-7.99); HBc Num1 0.10 S/CO (0.00-0.79); HBsAGNum1 0.45 S/CO (0.00-0.99); Hepatitis A Antibody IgM 0.50 Index (0-0.79); Hepatitis B Surface Antigen Negative (Negative); ~HepC Num1 0.13 S/CO (0.00-0.79); ~Hepatitis A Antibody IgM Nonreactive (Nonreactive); ~Hepatitis B Surface Antibody NONREACTIVE (Nonreactive); ~Hepatitis C Antibody Nonreactive (Nonreactive)
== END 2025-04-26 14:10 | disposition home or self-care (01) ==
LOC: HO.HMGCLDS 14:09
PROVIDERS: PCP Nurse Practitioner Family; Visit Provider Nurse Practitioner Family
DX: K83.8 Other specified diseases of biliary tract (principal); R79.89 Other specified abnormal findings of blood chemistry; E83.42 Hypomagnesemia; Z13.31 Encounter for screening for depression
CPT/HCPCS: 36415; 80053; 83690; 83735; 86015; 86301; 86381; 86704; 86706; 86709; 86803; 87340; 96127; 99212

== ENCOUNTER 2025-04-26 14:09 | Outpatient (AMB) | payer MEDICARE, OTHER, SELFPAY ==
--- OUTSIDE RECORDS SUMMARY | 2024-03-26 07:20 | XMS_ITS ---
Author Organization [facility] Address [address] [place] [address] Care Team Providers Care Travel Registered Nurse Oncology Name Role Phone CHANDU CHISHOLM Primary Care Provider Taiwo Azar Unavailable [phone] REASON FOR VISIT diarrhea,wt loss,nausea Problems Problem Type SNOMED Code ICD Code Onset Dates Problem Status W/U Status Risk Notes Problem Diverticular disease of colon (754672055) Diverticulosis of large intestine without perforation or abscess without bleeding (K57.30) Active confirmed Encounters Encounter Location Date Provider Diagnosis [facility] [place] [address] [place], [place] [phone] 03/26/2024 Taiwo Mcintosh Diarrhea R19.7 ; W [...] NANCY VORA CDOB: [birth year] (79 yo F)Acc No.[id number]:03/26/2024 EGD and COL/MAC Patient: NANCY COHEN Provider: Domo Mcintosh MD :1945 A ge:78 Y S ex:Female Date:03/26/2024 Address:[address] [address] , [place] Pcp:CHANDU CHISHOLM Subjective: * Chief Complaints: * [...] FLW-UP 10 YRS DOCD, Modifiers: 8P , 08942 UPPER GI ENDOSCOPY, BIOPSY * * The named appointment provid er may or may not be the originator of this progress note, and it is not deemed complete until electronically signed by the appointment provider. Sign off status: Pending * Provider: Doom Mcintosh MD Date: 03/26/2024 Generated for Leidy elaine/Manolo/Sunitting on: 04/26/2025 02:50 PM EDT
--- NOTE | 2025-04-26 14:12 | MHC.PC.OV ---
Vital Signs 04/26/25 14:16 04/26/25 14:57 Height 5 ft Weight 167 lb 2 oz BMI 32.6 BP 138/100 H 130/78 Blood Pressure Location Rt brachial Rt brachial Position Sitting Sitting Respiration 18 Pulse 62 Pulse Oximetry (%) 97 Oxygen Delivery Method Room Air Intake Visit Reasons: TCM Service Correspondent Required: No Accompanied by: Self / Same As Patient Allergies cephalexin (From Keflex) Allergy (Severe, Verified 04/26/25 14:29) Swelling ciprofloxacin (From Cipro) Allergy (Severe, Verified 04/26/25 14:29) eye swelling penicillin G Allergy (Severe, Verified 04/26/25 14:29) Angioedema Penicillins Allergy (Severe, Verified 04/26/25 14:29) ANGIOEDEMA doxycycline Allergy (Intermediate, Verified 04/26/25 14:29) Vomiting gabapentin Allergy (Verified 04/26/25 14:29) Unknown meloxicam Allergy (Verified 04/26/25 14:29) Unknown NSAIDS (Non-Steroidal Anti-Inflamma Adverse Reaction (Verified 04/26/25 14:29) Unknown Sulfacet-R Allergy (Severe, Uncoded 04/26/25 14:29) Swelling Medication List - Last Reconciled 04/26/25 by COLLEEN Claros-CLAUDE acetaminophen ER 1,300 mg PO Q8H PRN Held on 04/17/25. Instructions: hold until repeat LFTs atorvastatin 10 mg PO BEDTIME Held on 04/17/25. Instructions: hold until follow up LFTs/discuss with PCP bupropion HCl 200 mg PO DAILY bupropion HCl 100 mg PO BEDTIME carvedilol 25 mg PO BID gabapentin 200 mg PO BEDTIME gabapentin 100 mg PO DAILY insulin glargine (Lantus Solostar U-100 Insulin) 10 - 12 units subcut BEDTIME levothyroxine 50 mcg PO DAILY@0600 lidocaine 5% 1 patch topical DAILY PRN magnesium oxide 400 mg PO DAILY 30 days ondansetron HCl 4 mg PO Q8H PRN pen needle, diabetic (Pen Needle) Use to inject insulin once a day prednisone 40 mg (2 x 20 mg) PO DAILY 6 days sitagliptin phosphate (Januvia) 100 mg PO DAILY 90 days Tobacco use date assessed: 04/26/25 Fall risk assessment: No Falls in past year Last assessed Fall Risk: 04/26/25 Dental Screening Dental Screen Date: 12/20/24 Did you have a dental visit in the last 12 months?: No Did you have a dental problem in the last 6 months where you did not have access to dental care?: No HPI TCM HPI Details Chief Complaint The patient presents for follow-up after hospitalization for persistent vomiting and diarrhea. History of Present Illness The patient is a 79-year-old female presenting with a follow-up for hospital discharge after treatment for gastrointestinal symptoms and associated conditions. She was initially admitted on April 14, 2025, with a 9-day history of persistent non-bloody vomiting and mucusy diarrhea, accompanied by heartburn and an upset stomach. During her hospital stay, she denied any fever, chills, or abdominal pain, and there was no chest pain reported. While in the emergency room, she experienced elevated blood pressure and a slight leukocytosis with a white blood cell count of 11.6. Laboratory tests revealed hypomagnesemia, which was treated with intravenous magnesium sulfate. Additionally, her liver function tests showed elevated AST and ALT levels at 248 and 200, respectively. A CT scan of the abdomen indicated possible mild enteritis changes and biliary ductal dilatation. 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 Further findings included arthrosclerotic disease and a small umbilical hernia. Currently, the patient denies any fever, chills, chest pain, diarrhea, or abdominal pain. She reports a decreased appetite and some dizziness, which may be related to dehydration or appetite issues. 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 Social History Health Maintenance Review of Systems - General: Denies fever, chills - Cardiovascular: Denies chest pain - Gastrointestinal: Denies diarrhea, abdominal pain; Reports decreased appetite - Neurological: Reports dizziness Physical Exam General: Cooperative, healthy appearing, comfortable, no acute distress and well developed Orientation: Alert and oriented Limitations: No limitations Head: Normal to inspection Ears: Hearing grossly normal bilaterally Nose: Normal external nose present Face and sinus: Normal facial exam Eyes: Appearance normal, both eyes and all related structures Neck: Normal visual inspection and Yes full ROM Respiratory: Lungs were clear Cardiovascular: Regular rate and rhythm. S1 S2 systolic murmur GI: Normal to inspection. Soft to palpation and nontender Skin: No rashes or lesions noted Neuro: Alert and oriented Extremities: Normal to inspection Results - Labs: Leukocytosis with WBC count of 11.6, hypomagnesemia, elevated AST (248) and ALT (200) - Imaging: CT scan showed possible mild enteritis changes, biliary ductal dilatation, Bosniak type 2 cyst on left kidney, cystic lesions on spleen Plan The patient will undergo further evaluation with laboratory tests and an MRCP to assess the biliary ductal dilatation and cystic lesions. She is advised to continue regular follow-ups with her import dispatcher for blood pressure management and any renal concerns. The patient is also encouraged to monitor her symptoms, particularly her appetite and dizziness, and report any significant changes. Patient Instructions - Monitor symptoms, especially appetite and dizziness, and report any significant changes. - Continue regular follow-ups with import dispatcher for blood pressure and renal concerns. - Undergo scheduled laboratory tests and MRCP as advised. TCM TCM Information Date of Discharge 04/17/25 Discharged From [facility] Medical History Elevated cholesterol Breast cancer Hx of radiation therapy Depression Spinal stenosis Degenerative disc disease, cervical Arthritis Back pain HTN (hypertension) Diabetes Disc degeneration, lumbar Lumbar radiculopathy Osteoarthritis Breast cancer, left Surgical History Hx of bilateral cataract extraction History of knee replacement History of carpal tunnel release of both wrists Hx of cholecystectomy Hx of appendectomy Hx of hysterectomy History of lumpectomy of left breast H/O colonoscopy History of total left knee replacement Social History Household Members: None Housing: House Do you presently have visiting nurse or other home services: No Alcohol intake: current Alcohol intake frequency: 0-2 drinks per day Patient Tobacco Use Status: Former Tobacco user Tobacco use type: Cigarette Years Smoked: 50 years ago e-Cigarette/Vaping Use: Never Used Second Hand Smoke Exposure: No service: No Current occupational status: employed Current occupation: [employer] Current occupational exposures/hazards: No Cognitive needs: No Hearing needs: No Vision needs: Yes Questionnaire PHQ-9 Over the last 2 weeks, how often have you been bothered by any of the following problems? 1. Little interest or pleasure in doing things: several days 2. Feeling down, depressed, or hopeless: nearly every day 3. Trouble falling or staying asleep, or sleeping too much: more than half the days 4. Feeling tired or having little energy: more than half the days 5. Poor appetite or overeating: more than half the days 6. Feeling bad about yourself - or that you are a failure or have let yourself or your family down: not at all 7. Trouble concentrating on things, such as reading the newspaper or watching television: not at all 8. Moving or speaking so slowly that other people could have noticed. Or the opposite - being so fidgety or restless that you have been moving around a lot more than usual: not at all 9. Thoughts that you would be better off or of hurting yourself in some way: not at all Total score: 10 Depression Screening Interpretation: Positive (increased medication, will cont to monitor) Depression Screening Follow-up: Existing condition Depression Screening Done: Yes 46270 - PHQ-9 Billing: Yes Source: Developed by Drs. Taiwo Banegas, Pat Benoit, Nestor Zimmer and colleagues, with an educational valarie from [employer]. Thrive Questionnaire Date Thrive assessed: 04/15/25 I am a: Patient What is your living situation today?: I have a steady place to live Within the past 12 months, did the food you bought not last and you didn't have the money to get more?: Never true Within the past 12 months, did you worry whether your food would run out before you got money to buy more?: Never true Do you have trouble paying for medicines?: No Do you have trouble getting transportation to medical appointments?: No Do you have trouble paying your heating and electricity bill?: No Do you have trouble taking care of your child, family member or friend?: No Do you have trouble with day-to-day activities such as bathing, preparing meals, shopping, managing finances, etc.?: No Are you currently unemployed and looking for a job?: No Are you interested in more education?: No Please select the resources that you would like help with: None Currently or been in a relationship where the following occur: I choose not to answer THRIVE Score: 0 LESLIE-7 AMB Questionnaire LESLIE-7 Date LESLIE - 7 assessed: 12/20/24 Feeling nervous, anxious, or on edge: 1 = Several days Not being able to stop or control worryin = Not at all Worrying too much about different things: 0 = Not at all Trouble relaxin = Not at all Being so restless that it is hard to sit still: 0 = Not at all Becoming easily annoyed or irritable: 0 = Not at all Feeling afraid as if something awful might happen: 0 = Not at all Total LESLIE-7 score (0-4 normal; 5-9 mild; 10-14 moderate; 15-21 severe): 1 Source: Developed by Drs. Taiwo Banegas, Pat Benoit, Nestor Zimmer and colleagues, with an educational avlarie from [employer]. LESLIE-7 Assessment Billing LESLIE-7 Assessment Tool: LESLIE-7 Assessment 64466 Physical exam (Primary Care) Vital Signs: Last Vital Signs Pulse 62 04/26/25 14:16 Resp 18 04/26/25 14:16 BP 138/100 H 04/26/25 14:16 Pulse Ox 97 04/26/25 14:16 Oxygen Delivery Method Room Air 04/26/25 14:16 BMI result Body Mass Index 32.6 Tobacco/Smoking Status: Tobacco use Status Tobacco use date assessed 04/26/25 04/26/25 14:15 Patient Tobacco Use Status Former Tobacco user 04/26/25 14:15 Tobacco use type Cigarette 04/26/25 14:15 e-Cigarette/Vaping Use Never Used 04/26/25 14:15 PHQ-9: PHQ-9 Score PHQ-9: Total score 10 04/26/25 14:24 Depression Screening Interpretation: Positive (increased medication, will cont to monitor) Depression Screening Follow-up: Existing condition Thrive Assessment: Date of Thrive Assessment Date Thrive assessed 04/15/25 04/26/25 14:15 Currently or been in a relationship where the following occur: I choose not to answer Coding Level of Care Code Est Pt Level 4 (91731) Diagnoses Common bile duct dilation K83.8 Elevated LFTs R79.89 Hypomagnesemia E83.42 Additional Codes LESLIE-7 Assessment Billing - LESLIE-7 Assessment Tool: LESLIE-7 Assessment 97025 ([id number]) PHQ-9 - 51437 - PHQ-9 Billing: Yes ([id number]) Assessment & Plan Assessment & Plan (1) Common bile duct dilation: Code(s): K83.8 - Other specified diseases of biliary tract Category: Medical (2) Common bile duct dilation: Code(s): K83.8 - Other specified diseases of biliary tract Category: Medical (3) Elevated LFTs: Code(s): R79.89 - Other specified abnormal findings of blood chemistry Category: Medical (4) Hypomagnesemia: Code(s): E83.42 - Hypomagnesemia Category: Medical Plan . Orders: Orders Mitochondrial Antibody Today K83.8 - Other specified diseases of biliary tract Carbohydrate Antigen 19-9 Today K83.8 - Other specified diseases of biliary tract Comprehensive Met. Panel Today K83.8 - Other specified diseases of biliary tract Lipase Today K83.8 - Other specified diseases of biliary tract MR MRCP Today K83.8 - Other specified diseases of biliary tract, R79.89 - Other specified abnormal findings of blood chemistry Smooth Muscle Antibody Today K83.8 - Other specified diseases of biliary tract Hepatitis A,B,C Profile Today K83.8 - Other specified diseases of biliary tract Complete Blood Count Auto Diff Today E83.42 - Hypomagnesemia, K83.8 - Other specified diseases of biliary tract, R79.89 - Other specified abnormal findings of blood chemistry
[2025-04-26 14:16] VITALS: BP 138/100; PULSE 62; RESP 18; O2SAT 97; BMI 32.6
--- OUTSIDE RECORDS SUMMARY | 2025-04-26 14:50 | XMS_ITS | Clinical Summary ---
Author Organization [facility] Address [address] [place] [address] Care Team Providers Care Talent Acquisition Operations Manager Name Role Phone John Herrera Primary Care Provider [phone] Allergies Active Allergy Reactions Criticality Noted Date [...] age to complete this topic Care Teams Talent Acquisition Operations Manager Relationship Specialty Start Date End Date John Herrera [address] [facility] [place] [address] PCP - General Family Medicine 05/30/23
--- OUTSIDE RECORDS SUMMARY | 2025-04-26 14:50 | XMS_ITS | Encounter Summary ---
Author Organization [facility] Address [address] [place] [address] Phone Care Team Providers Care Energy Conservation Technician Name Role Phone John Herrera NP Primary Care Provider [phone] Reason for Visit * Reason Comments Med Refill Encounter Details Date Type Department Care Team (Late st Contact Info) Description 11/15/2023 Refill [facility] [address] [place] [phone] Karson Law MD Social History Tobacco Use [...] on filedocumented in this encounter Care Teams Energy Conservation Technician Relationship Specialty Start Date End Date John Herrera NP [address] [facility] [place] [address] PCP - General Nurse Practitioner 09/05/21 documented as of this encounter
--- OUTSIDE RECORDS SUMMARY | 2025-04-26 14:51 | XMS_ITS | Encounter Summary ---
Author Organization [facility] Address [address] [place] [id number] Care Team Providers Care Director Of Sports Performance Name Role Phone John Herrera MD Primary Care Provider Encounter Details Date Type Department Care Team (Late st Contact Info) Description 02/03/2024 Scanned Document [facility] Department of Internal Medicine & Nephrology [address] [phone] Karson Law MD [address] [place] [phone] Social History Tobacco Use Types Packs/Day Years [...] Description 12/16/2025 10:20 AM EDT Office Visit [facility] Department of Internal Medicine & Nephrology [place] [address] [place] [phone] Karson Law MD [address] [place] [phone] documented as of this encounter Visit Diagnoses Not on filedocumented in this encounter Care Teams Director Of Sports Performance Relationship Specialty Start Date End Date John Herrera MD [address] [facility] [place] [address] PCP - General Family Medicine 02/03/24 documented as of this encounter
--- OUTSIDE RECORDS SUMMARY | 2025-04-26 14:51 | XMS_ITS | Clinical Summary ---
Author Organization [facility] Address [address] [place] [phone] Phone Care Team Providers Care Mend Worker Name Role Phone John Herrera NP Primary [...] Description 08/09/2025 11:00 AM EST Office Visit [facility] Hematology Oncology [address] [place] [address] Ceasar Colon MD [address] [place] [address] Health Maintenance Due Date Last Done Comments [...] age to complete this topic Insurance MEDICARE [facility] Care Teams Mend Worker Relationship Specialty Start Date End Date John Herrera NP [address] [facility] [place] PCP - General 05/30/23
[2025-04-26 14:57] VITALS: BP 130/78
== END 2025-04-26 15:35 | disposition home or self-care (01) ==
LOC: HO.HMCC 14:09
PROVIDERS: PCP Nurse Practitioner Family; Visit Provider Nurse Practitioner Family
DX: K83.8 Other specified diseases of biliary tract (principal); R79.89 Other specified abnormal findings of blood chemistry; E83.42 Hypomagnesemia

== ENCOUNTER 2025-05-05 09:55 | Inpatient (IN) | payer MEDICARE, OTHER, SELFPAY ==
--- OUTSIDE RECORDS SUMMARY | 2024-03-26 07:20 | XMS_ITS ---
Author Organization [facility] Address [address] [place] [address] Care Team Providers Care Porcelain Enamel Installer Name Role Phone CHANDU CHISHOLM Primary Care Provider Taiwo Azar Unavailable [phone] REASON FOR VISIT diarrhea,wt loss,nausea Problems Problem Type SNOMED Code ICD Code Onset Dates Problem Status W/U Status Risk Notes Problem Diverticulosis o f large intestine without perforation or abscess without bleeding (K57.30) Active confirmed Encounters Encounter Location Date Provider Diagnosis [facility] [place] [address] [place], [place] [phone] 03/26/2024 Taiwo Mcintosh Diarrhea R19.7 ; W [...] Progress Notes * NANCY VORA CDOB: 7 (79 yo F)Acc No.[id number]:03/26/2024 EGD and COL/MAC Patient: B ENOIT, NANCY C Provider: Domo Mcintosh MD :1945 A ge:78 Y S ex:Female Date:03/26/2024 Address:[address] [address] , [id number] Pcp:CHANDU CHISHOLM Subjective: * Chief Complaints: * [...] FLW-UP 10 YRS DOCD, Modifiers: 8P , 45857 UPPER GI ENDOSCOPY, BIOPSY * * The named appointment provid er may or may not be the originator of this progress note, and it is not deemed complete until electronically signed by the appointment provider. Sign off status: Pending * Provider: Domo Mcintosh MD Date: 03/26/2024 Generated for Leidy elaine/Manolo/eTmikeyitting on: 0 05/05/2025 03:45 PM EDT
[2025-05-05] VITALS (8 sets, daily range): BP systolic 110–191; BP diastolic 51–90; PULSE 66–78; RESP 12–22; TEMP 36.8–37.4; O2SAT 96–98; BMI 34.6
--- NOTE | ~2025-05-05 | CT_ITS ---
EXAMINATION: CT ABDOMEN PELVIS WITHOUT THEN WITH IV CONTRAST HISTORY: LLQ Pain and hematochezia COMPARISON: Comparison is made with the prior examination dated 04/14/2025. TECHNIQUE: CT scan of the abdomen and pelvis was performed before and after the intravenous administration of 80 mL Omnipaque 350. Post contrast images were obtained in the arterial and delayed phases to evaluate for extravasation. Coronal and sagittal reformatted images were generated and reviewed. Oral contrast material was not administered per department protocol. This CT exam was performed with one or more of the following dose reduction techniques: automated exposure control, adjustment of the mA and/or kV according to patient size, use of iterative reconstruction technique. DLP: 1484 mGy-cm ABDOMEN: LOWER CHEST: The visualized lung bases are clear. There is no pleural effusion. CARDIOVASCULATURE: The heart is normal in size. There is no pericardial effusion. LIVER: The liver is normal in size and contour. No liver mass is identified. The hepatic and portal veins are patent. GALLBLADDER / BILE DUCTS: The gallbladder is surgically absent. There is moderate intra and extrahepatic biliary ductal dilatation without significant change. SPLEEN: The spleen is normal in size. Again seen is a 1.1 cm low-density focus at the superior pole of the spleen.. PANCREAS: The pancreas is unremarkable in appearance. ADRENAL GLANDS: Within normal limits. KIDNEYS/RETROPERITONEUM: No renal calculi are identified. There is no hydronephrosis. There are subcentimeter bilateral renal cysts. LYMPH NODES: No abdominal or pelvic lymphadenopathy. VASCULATURE: The abdominal aorta demonstrates atherosclerotic calcification, but is normal in caliber. MESENTERY/PERITONEUM: There is a small amount of free fluid in the pelvis. No masses. There is no free intraperitoneal gas. STOMACH: The stomach is collapsed, limiting evaluation. SMALL BOWEL: The small bowel is normal in caliber. COLON: There is marked wall thickening of the descending and proximal sigmoid colon with mild stranding of the pericolonic fat, consistent with colitis. No contrast extravasation is seen to suggest active GI bleeding. There are scattered diverticuli of the sigmoid colon, without evidence of diverticulitis. APPENDIX: Normal. URINARY BLADDER/PELVIC ORGANS: The urinary bladder is unremarkable. The patient is status post hysterectomy. BONES / SOFT TISSUES: There is degenerative disc disease of the spine. CT/CT gi bleed abd pel wo/w IVcon IMPRESSION: Findings compatible with colitis involving the descending and proximal sigmoid colon. This could be infectious, inflammatory, or ischemic in nature. There is no contrast extravasation to suggest active GI bleeding. Electronically signed by: Taiwo Logan MD 05/05/2025 02:30 PM EDT
--- NOTE | 2025-05-05 10:12 | ECG_ITS ---
Test Reason : GI BLEED Blood Pressure : */* mmHG Vent. Rate : 73 BPM Atrial Rate : 73 BPM P-R Int : 176 ms QRS Dur : 74 ms QT Int : 408 ms P-R-T Axes : 30 6 86 degrees QTcB Int : 449 ms Normal sinus rhythm Minimal voltage criteria for LVH, may be normal variant ( R in aVL ) Nonspecific T wave abnormality Abnormal ECG When compared with ECG of 25-Aug-2003 10:56, Nonspecific T wave abnormality now evident in Lateral leads Referred By: Deidra Moser Electronically Signed By: Juan A Marie
--- NOTE | 2025-05-05 10:18 | ED_ITS ---
HPI - GI Bleed General Chief complaint: GI Bleed Stated complaint: ABD PAIN,BLOOD IN STOOL X2D PER EMS Time Seen by Provider: 05/05/25 10:03 Source: patient, EMS and old records reviewed Mode of arrival: EMS Limitations: no limitations History of Present Illness ED Provider: LINNETTE HPI Narrative: 79 yo female with PMH of HTN, DM, anxiety and depression, hypothyroidism, s/p cholecystectomy, hysterectomy, appendectomy who noted decrease in her chronic diarrhea yesterday then started to have LLQ pain and nausea. She noted some bright red blood yesterday in stool. She had more pain overnight then noted without BM a saturated adult brief with brb. She is not on thinners or aspirin. She just had EGD/colo with [facility] that was reported to be clear - done last year. No prior GIB. She denies food exposures, sick contacts, travel hx, no abx use in past 4 weeks. She was just admitted 04/14 - 04/17 for intractable n/v. MD complaint: blood on toilet paper Onset (ago): day(s) (2) Pain Consistency: constant Severity: moderate Relieving factors: bowel movement Exacerbating factors: none Associated symptoms: abdominal pain and nausea Treatments Prior to Arrival: none Related Data Home Medications ?Medication ?Instructions ?Recorded ?Confirmed acetaminophen 650 mg 1,300 mg PO Q8H PRN Pain 04/26/25 tablet,extended release Held on 04/17/25. Instructions: hold until repeat LFTs atorvastatin 10 mg tablet 10 mg PO BEDTIME 04/14/25 Held on 04/17/25. Instructions: hold until follow up LFTs/discuss with PCP bupropion HCl 100 mg tablet 100 mg PO BEDTIME 04/14/25 04/26/25 bupropion HCl 100 mg tablet 200 mg PO DAILY 04/14/25 0 04/26/25 gabapentin 100 mg capsule 100 mg PO DAILY 04/14/2502/13 gabapentin 100 mg capsule 200 mg PO BEDTIME 04/14/25 0 04/26/25 insulin glargine 100 unit/mL (3 10 - 12 unit subcut BE DTIME 04/14/25 04/26/25 mL) subcutaneous pen (Lantus Solostar U-100 Insulin) levothyroxine 50 mcg tablet 50 mcg PO DAILY@0600 04/1404/26/25 lidocaine 5 % topical patch 1 patch topical DAILY PRN Pain 04/14/25 04/26/25 Previous Rx's ?Medication ?Instructions ?Recorded sitagliptin phosphate 100 mg 100 mg PO DAILY 90 days # 90 tabs 11/08/24 tablet (Januvia) pen needle, diabetic 31 gauge x #100 ea 01/18/25 5/16 (Pen Needle) carvedilol 25 mg tablet 25 mg PO BID #180 tabs 01/26 ondansetron HCl 4 mg tablet 4 mg PO Q8H PRN nausea and 04/17/25 vomiting #10 tabs magnesium oxide 400 mg PO DAILY 30 days #30 tabs 04/21/25 prednisone 20 mg tablet 40 mg (2 x 20 mg) PO DAILY 6 days 04/21/25 #12 tabs Allergies Allergy/AdvReac Type Severity Reaction Status Date / Time cephalexin (From Keflex) Allergy Severe Swelling Verified 05/05/25 10:08 ciprofloxacin (From Cipro) Allergy Severe eye Verified 05/05/25 10:08 swelling penicillin G Allergy Severe Angioedema Verified 05/05/25 10:08 Penicillins Allergy Severe ANGIOEDEMA Verified 05/05/25 10:08 doxycycline Allergy Intermediate Vomiting Verified 05/05/25 10:08 gabapentin Allergy Unknown Verified 05/05/25 10:08 meloxicam Allergy Unknown Verified 05/05/25 10:08 NSAIDS (Non-Steroidal AdvReac Unknown Verified 05/05/25 10:08 Anti-Inflamma Sulfacet-R Allergy Severe Swelling Uncoded 04/26/25 14:29 Review of Systems 2 Review of Systems: Constitutional : No Weight loss, No Fever, No Chills ENT/Mouth : No sore throat, No Rhinorrhea Eyes: No Swelling, No Redness Cardiovascular : No Chest Pain, No SOB, NoEdema Respiratory : No Cough, No Sputum, No Wheezing Gastrointestinal : Positive Nausea, no Vomiting, positive Diarrhea, positive abdominal Pain, pos Hematochezia, No Melena Genitourinary : No Dysuria, No Urinary Frequency, No Hematuria, No Urgency Musculoskeletal : No joint pain, No Myalgias, No Joint Swelling Skin : No Skin Lesions, No rash Neuro : No Weakness, No Numbness, No Dizziness, No Headache All other systems reviewed and are negative. [facility] Past Medical History Attestation statement: The following information was validated with the patient. Source: old records reviewed Medical History Elevated cholesterol Breast cancer Hx of radiation therapy Depression Spinal stenosis Degenerative disc disease, cervical Arthritis Back pain HTN (hypertension) Diabetes Disc degeneration, lumbar Lumbar radiculopathy Osteoarthritis Breast cancer, left Surgical History Hx of bilateral cataract extraction History of knee replacement History of carpal tunnel release of both wrists Hx of cholecystectomy Hx of appendectomy Hx of hysterectomy History of lumpectomy of left breast H/O colonoscopy History of total left knee replacement Social History Social History Household Members: None Housing: House Do you presently have visiting nurse or other home services: No Alcohol intake: current Alcohol intake frequency: 0-2 drinks per day Patient Tobacco Use Status: Former Tobacco user Tobacco use type: Cigarette Years Smoked: 50 years ago Smoked in Last 30 Days: No e-Cigarette/Vaping Use: Never Used Second Hand Smoke Exposure: No Use of substances other than those prescribed or required for medical reasons: No service: No Current occupational status: employed Current occupation: [employer] Current occupational exposures/hazards: No Cognitive needs: No Hearing needs: No Vision needs: Yes Physical Exam 2 Vital Signs: Vital Signs: Last Vital Signs Temp 98.3 F 05/05/25 14:18 Pulse 70 05/05/25 14:18 Resp 18 05/05/25 14:18 BP 175/60 H 05/05/25 14:18 Pulse Ox 96 05/05/25 14:18 O2 Del Method Room Air 05/05/25 14:18 BMI result Body Mass Index 34.6 Appearance: Alert. Oriented X3. No acute distress. Eyes: Pupils equal, round and reactive to light. ENT: Pharynx normal. Neck: Normal inspection. Neck supple. CVS: Normal heart rate and rhythm. Pulses normal. Respiratory: No respiratory distress. Breath sounds normal. Abdomen: Soft and ttp in LLQ, + hematochezia though current brief has no blood on it. Skin: Skin warm and dry. Normal skin color. Extremities: No lower extremity edema. Neuro: Oriented X 3. No motor deficit. No sensory deficit. CN2-12 intact Course Course Course Narrative: infection suspected at 1140am will start on flagyl given her extensive allergies Medications Administered Discontinued Medications Generic Name Dose Route Start Last Admin Trade Name Devin PRN Reason Stop Dose Admin Lactated Ringer's 1,000 mls @ 999 mls/hr 05/05/25 10:12 05/05/25 11:47 Lr IV 05/05/25 11:12 Infused .Q1H1M ONE Infusion Metronidazole 500 mg in 100 mls @ 100 mls/hr 05/05/25 11:41 05/05/25 13:16 Flagyl IV 05/05/25 12:40 Infused ONCE ONE Infusion Magnesium Sulfate 2 gm in 50 mls @ 25 mls/hr 05/05/25 11:44 05/05/25 13:32 Magnesium Sulfate/H2o IV 05/05/25 13:43 25 mls/hr ONCE ONE Administration Iohexol 100 ml 05/05/25 14:11 05/05/25 14:12 Iohexol 350 Mg/Ml 100 Ml Infus..Btl IV 05/05/25 14:12 80 ml ONCE ONE Administration Morphine Sulfate 4 mg 05/05/25 10:12 05/05/25 10:23 Morphine Sulfate 4 Mg/Ml Cartridge IVPUSH 05/05/25 10:13 4 mg ONCE ONE Administration Protocol Ondansetron HCl 4 mg 05/05/25 10:12 05/05/25 10:23 Ondansetron Hcl 4 Mg/2 Ml Vial IVPUSH 05/05/25 10:13 4 mg ONCE ONE Administration Medical Decision Making Medical Decision Making [facility] Narrative: 79 yo female with PMH of HTN, DM, anxiety and depression, hypothyroidism, s/p cholecystectomy, hysterectomy, appendectomy who has LLQ pain and rectal bleeding at this time will need basic labs, cultures, CT scan for diverticular disease, active GIB - ordered the protocol, obstruction, colitis or mass. She has no known risk factors at this time. I have ordered IVF and IV morphine for pain Differential Diagnosis Differential Diagnoses: The differential diagnosis associated with the presentation includes diverticular disease, ischemia, obstruction, mass Admission/Observation Consideration of admission/observation: Escalation of care including admission/observation considered admit for furer monitoring Consult Healthcare Provider Management of the patient was discussed with: Hospitalist (will admit) Lab Data [facility] Lab Attestation statement: I reviewed the patient's lab results. 05/05/25 11:05 05/05/25 11:06 Labs: Lab Results 05/05/25 05/05/25 05/05/25 Range/Units 11:05 11:06 13:33 WBC 20.0 H (4.8-10.8) X10*3/uL RBC 3.50 L (4.20-5.50) X10*6/uL Hgb 11.3 L (12.0-16.0) g/dl Hct 33.9 L (37.0-47.0) % MCV 96.9 (80.0-98.0) fL MCH 32.3 (27.0-33.0) pg MCHC 33.3 (31.0-35.0) g/dl RDW 12.3 (11.0-16.0) % Plt Count 191 (160-400) X10*3/uL MPV 10.8 (9.4-12.3) fL Immature Gran % (Auto) 0.8 H (0.0-0.4) % Neut % (Auto) 86.9 H (45-73) % Lymph % (Auto) 4.7 L (20-40) % [place] % (Auto) 7.1 (2-11) % Eos % (Auto) 0.3 (0-4) % Baso % (Auto) 0.2 (0-2) % Lymph # (Auto) 0.9 L (1.2-4.9) X10*3/uL [place] # (Auto) 1.4 H (0.1-1.2) X10*3/uL Eos # (Auto) 0.1 (0.0-0.4) X10*3/uL Baso # (Auto) 0.0 (0.0-0.2) X10*3/uL Abs Immat Gran (auto) 0.15 H (0.00-0.03) X10*3/uL Absolute Neuts (auto) 17.4 H (2.0-8.3) x10*3/uL Absolute Nucleated RBC 0.000 (0.0-0.012) X10*3/uL Nucleated RBC % (auto) 0.0 (0.0-0.2) /100WBC Sodium 141 (135-145) mmol/L Potassium 4.0 (3.3-5.1) mmol/L Chloride 107 (96-108) mmol/L Carbon Dioxide 24 (22-29) mmol/L Anion Gap 14 (12-20) BUN 17 H (9-16) mg/dL Creatinine 1.15 (0.5-1.4) mg/dL Estim Creat Clear Calc 38.4 Estimated GFR 46 Random Glucose 173 H (60-115) mg/dL Lactic Acid 2.2 H* (0.5-2.0) mmol/L Lactic Acid F/U @ 2Hr (0.5-2.0) mmol/L Calcium 8.9 (8.4-10.2) mg/dL Magnesium 1.5 L (1.6-2.6) mg/dL Total Bilirubin 0.7 (0.0-1.0) mg/dL Direct Bilirubin 0.2 (0.0-0.5) mg/dL AST 19 (5-31) U/L ALT 14 (0-31) U/L Alkaline Phosphatase 82 (39-117) U/L Total Protein 5.7 L (6.5-8.0) g/dL Albumin 3.3 L (3.5-5.0) g/dL Lipase 25 (8-78) U/L Urine Color Yellow Urine Appearance Clear Urine pH 5.5 (5.0-9.0) Ur Specific [place] 1.025 (1.005-1.025) Urine Protein 30 (1+) H (Neg-Trace) mg/dL Urine Glucose (UA) Negative (Negative) mg/dL Urine Ketones Negative (Negative) mg/dL Urine Blood Trace H (Negative) Urine Nitrite Negative (Negative) Ur Leukocyte Esterase Small (1+) H (Negative) Urine RBC 0-2 (0-2) /HPF Urine WBC 0-5 (0-5) /HPF Ur Squamous Epith Cells 11-20 (0-2) /HPF Calcium Oxalate Crystal Present Urine Bacteria None Seen (None Seen) Hyaline Casts 3-5 (0-2) /LPF Stool Occult Blood POSITIVE (NEGATIVE) Blood Type O Positive Antibody Screen NEGATIVE 05/05/25 Range/Units 14:26 WBC (4.8-10.8) X10*3/uL RBC (4.20-5.50) X10*6/uL Hgb (12.0-16.0) g/dl Hct (37.0-47.0) % MCV (80.0-98.0) fL MCH (27.0-33.0) pg MCHC (31.0-35.0) g/dl RDW (11.0-16.0) % Plt Count (160-400) X10*3/uL MPV (9.4-12.3) fL Immature Gran % (Auto) (0.0-0.4) % Neut % (Auto) (45-73) % Lymph % (Auto) (20-40) % [place] % (Auto) (2-11) % Eos % (Auto) (0-4) % Baso % (Auto) (0-2) % Lymph # (Auto) (1.2-4.9) X10*3/uL [place] # (Auto) (0.1-1.2) X10*3/uL Eos # (Auto) (0.0-0.4) X10*3/uL Baso # (Auto) (0.0-0.2) X10*3/uL Abs Immat Gran (auto) (0.00-0.03) X10*3/uL Absolute Neuts (auto) (2.0-8.3) x10*3/uL Absolute Nucleated RBC (0.0-0.012) X10*3/uL Nucleated RBC % (auto) (0.0-0.2) /100WBC Sodium (135-145) mmol/L Potassium (3.3-5.1) mmol/L Chloride (96-108) mmol/L Carbon Dioxide (22-29) mmol/L Anion Gap (12-20) BUN (9-16) mg/dL Creatinine (0.5-1.4) mg/dL Estim Creat Clear Calc Estimated GFR Random Glucose (60-115) mg/dL Lactic Acid (0.5-2.0) mmol/L Lactic Acid F/U @ 2Hr 1.4 (0.5-2.0) mmol/L Calcium (8.4-10.2) mg/dL Magnesium (1.6-2.6) mg/dL Total Bilirubin (0.0-1.0) mg/dL Direct Bilirubin (0.0-0.5) mg/dL AST (5-31) U/L ALT (0-31) U/L Alkaline Phosphatase (39-117) U/L Total Protein (6.5-8.0) g/dL Albumin (3.5-5.0) g/dL Lipase (8-78) U/L Urine Color Urine Appearance Urine pH (5.0-9.0) Ur Specific [place] (1.005-1.025) Urine Protein (Neg-Trace) mg/dL Urine Glucose (UA) (Negative) mg/dL Urine Ketones (Negative) mg/dL Urine Blood (Negative) Urine Nitrite (Negative) Ur Leukocyte Esterase (Negative) Urine RBC (0-2) /HPF Urine WBC (0-5) /HPF Ur Squamous Epith Cells (0-2) /HPF Calcium Oxalate Crystal Urine Bacteria (None Seen) Hyaline Casts (0-2) /LPF Stool Occult Blood (NEGATIVE) Blood Type Antibody Screen Independent Interpretation I performed an independent interpretation of an: EKG and CT Scan (colitis) Interpretation: Rate: 73 Rhythm: NSR [place]: normal Normal P waves. Normal TAE. Normal QRS complex. ST T wave : no GIULIANA, inverted t wave V1 qTC: 449 prior studies: no acute ischemia The study has been interpreted contemporaneously by me. . Radiology Impression Discussion of test interpretation with radiology: I have reviewed the radiologist's reading. External Record Review External record reviewed: Inpatient record, Outpatient record and Prior outpatient labs Critical Care Time Critical Care Time Critical Care Time: Yes Total Critical Care Time: 40 Attestation: Time is exclusive of separately billable procedures. Time includes: direct patient care, patient reassessment, coordination of patient care, interpretation of data (laboratory data, pulse oximetry, CT scans), review of patient's medical records, medical consultation and documentation of patient care.IV morphine with improvment in pain, IV magnesium to prevent arrythmia. Procedures excluded from critical care time: electrocardiography. Discharge Plan Discharge Clinical Impression: Acidosis, lactic, Hypomagnesemia, Colitis, Bright red rectal bleeding Elevated WBC count Qualifiers: Leukocytosis type: unspecified Qualified Code(s): D72.829 - Elevated white blood cell count, unspecified Patient Disposition: Admitted As Inpatient Print Language: [place] Island[place]
[2025-05-05] MEDS: Lactated Ringers 1,000 ML 999 ML IV (10:21)
[2025-05-05 11:23] LABS: MANUAL DIFF FLAG NO
[2025-05-05 11:24] LABS: Hematocrit 33.9 % (37.0-47.0); Hemoglobin 11.3 g/dl (12.0-16.0); Imm Gran Abs Auto 0.15 X10*3/uL (0.00-0.03); Imm Gran Pct Auto 0.8 % (0.0-0.4); Lymphocytes Absolute Auto 0.9 X10*3/uL (1.2-4.9); Mean Corpuscular HGB Conc 33.3 g/dl (31.0-35.0); Mean Corpuscular Hemoglobin 32.3 pg (27.0-33.0); Mean Corpuscular Volume 96.9 fL (80.0-98.0); NRBC Abs Auto 0.000 X10*3/uL (0.0-0.012); NRBC Pct Auto 0.0 /100WBC (0.0-0.2); Platelet Count 191 X10*3/uL (160-400); Red Blood Count 3.50 X10*6/uL (4.20-5.50); White Blood Count 20.0 X10*3/uL (4.8-10.8)
[2025-05-05 11:24] LABS: OBS Int Ctl Valid YES; OBS1 POSITIVE (NEGATIVE)
[2025-05-05 11:42] LABS: Alanine Aminotransferase 14 U/L (0-31); Albumin Level 3.3 g/dL (3.5-5.0); Alkaline Phosphatase 82 U/L (39-117); Anion Gap 14 (12-20); Aspartate Amino Transferase 19 U/L (5-31); Blood Urea Nitrogen 17 mg/dL (9-16); Calcium 8.9 mg/dL (8.4-10.2); Carbon Dioxide 24 mmol/L (22-29); Chloride 107 mmol/L (96-108); Creatinine Clr Calc Pharmacy 38.4; Estimated Glomerular Filt Rate 46; Lipase 25 U/L (8-78); Magnesium 1.5 mg/dL (1.6-2.6); Potassium 4.0 mmol/L (3.3-5.1); Sodium 141 mmol/L (135-145); Total Protein 5.7 g/dL (6.5-8.0)
[2025-05-05] MEDS: metroNIDAZOLE/NS 500 MG/100 ML PIGGYBACK 100 MG IV (12:12)
--- NOTE | 2025-05-05 12:16 | PC.NURSE ---
pt arrives via EMs from home where she reports abd pain and rectal bleeding for 2 days. she has had small amounts of diarrhea and straining to have a bowl movement that is bright red. she states this morning she woke up and there was red blood in her brief. rectal exam done, IV placed and labs drawn. no BPs/labs on left arm due to previous mastectomy. pt reports no pain after morphine.
[2025-05-05 13:21] LABS: Reflex Lactate? Lactic Acid Added
[2025-05-05] MEDS: Magnesium Sulfate/H2O 2 GM/50 ML PIGGYBACK IV (13:32)
[2025-05-05 13:42] LABS: Appearance Urine Clear; Glucose Urine UA Negative (Negative); PH 5.5 (5.0-9.0); Specific Gravity - Urine 1.025 (1.005-1.025); UMIC TRIGGER UACC YES
[2025-05-05 13:58] LABS: UACC Culture Trigger YES
[2025-05-05] MEDS: iohexoL 350 MG/ML 100 ML INFUS..BTL IV (14:12)
[2025-05-05 14:49] LABS: ~Lactic Acid-LAB USE ONLY 1.4 mmol/L (0.5-2.0)
--- NOTE | 2025-05-05 15:12 | P.HPHOSP_ITS ---
History of Present Illness Date of Service: 05/05/25 Chief Complaint: Abominal pain 79 years old woman with past medical history significant for type 2 diabetes mellitus on insulin, hypertension, hyperlipidemia, breast cancer status post radiation and lumpectomy; and chronic back pain presents with mid abdominal pain pain for 2 days, she reports been constipated and having time passing and finally was able to pass small amount of stools but was associated with some blood, but today noted much more blood coming out and scared her to come in. She reports no fever or chils, nause but no vomiting. Work up show colitis on CT and WBC is 20K, she's given IV Flagyl in light multiple Abx allergies. Review of Systems 2 Review of Systems: Gen: no fever Resp: no sob, no cough CV: no chest, no BARRETT, no leg edema GI: No n/v, no abd pain Neuro: No confusion Yes all other systems are reviewed and are negative [facility] Medical History Elevated cholesterol Breast cancer Hx of radiation therapy Depression Spinal stenosis Degenerative disc disease, cervical Arthritis Back pain HTN (hypertension) Diabetes Disc degeneration, lumbar Lumbar radiculopathy Osteoarthritis Breast cancer, left Surgical History Hx of bilateral cataract extraction History of knee replacement History of carpal tunnel release of both wrists Hx of cholecystectomy Hx of appendectomy Hx of hysterectomy History of lumpectomy of left breast H/O colonoscopy History of total left knee replacement Social History Household Members: None Housing: House Do you presently have visiting nurse or other home services: No Alcohol intake: current Alcohol intake frequency: 0-2 drinks per day Patient Tobacco Use Status: Former Tobacco user Tobacco use type: Cigarette Years Smoked: 50 years ago Smoked in Last 30 Days: No e-Cigarette/Vaping Use: Never Used Patient Interested in Nicotine Replacement: No Patient Given Instructions on How to Stop Smoking: No Second Hand Smoke Exposure: No Use of substances other than those prescribed or required for medical reasons: No Have you been hit, kicked, punched, or otherwise hurt by someone within the past year? If so, by whom?: No Do you feel safe in your current relationship?: No Current Relationship Is there a partner from a previous relationship who is making you feel unsafe now?: No Are you made to feel afraid or neglected: No Advance Directives: Yes Advance Directives Information Provided: Yes Advance Directives on File: No Advance Directives Date on File: 05/05/25 Recently lost weight without trying: Yes How much weight loss: 34pounds or more Nutrition Risks: No Nutritional Risk Patient : No : No Poor oral hygiene: No service: No Current occupational status: employed Current occupation: [employer] Current occupational exposures/hazards: No Cognitive needs: No Hearing needs: No Vision needs: Yes Meds Allergies Allergy/AdvReac Type Severity Reaction Status Date / Time cephalexin (From Keflex) Allergy Severe Swelling Verified 05/05/25 10:08 ciprofloxacin (From Cipro) Allergy Severe eye Verified 05/05/25 10:08 swelling penicillin G Allergy Severe Angioedema Verified 05/05/25 10:08 Penicillins Allergy Severe ANGIOEDEMA Verified 05/05/25 10:08 doxycycline Allergy Intermediate Vomiting Verified 05/05/25 10:08 meloxicam Allergy Unknown Verified 05/05/25 10:08 NSAIDS (Non-Steroidal AdvReac Unknown Verified 05/05/25 10:08 Anti-Inflamma Sulfacet-R Allergy Severe Swelling Uncoded 04/26/25 14:29 Home Medications ?Medication ?Instructions ?Recorded ?Confirmed ?Last Taken ?Type atorvastatin 10 mg tablet 10 mg PO BEDTIME 04/14/2505/04/25 History Held on 04/17/25. Instructions: hold until follow up LFTs/discuss with PCP gabapentin 100 mg capsule 100 mg PO DAILY 04/14/2505/05/25 History gabapentin 100 mg capsule 200 mg PO BEDTIME 04/14/25 0 05/05/25 05/04/25 History levothyroxine 50 mcg tablet 50 mcg PO DAILY@0600 04/1405/05/25 05/05/25 History lidocaine 5 % topical patch 1 patch topical DAILY PRN Pain 04/14/25 05/05/25 Unknown History bupropion HCl 100 mg tablet 100 mg PO BEDTIME 05/05/25 05/05/25 05/04/25 History bupropion HCl 100 mg tablet 200 mg PO DAILY 05/05/25 0 05/05/25 05/05/25 History insulin glargine 100 unit/mL (3 10 - 12 unit subcut BE DTIME 05/05/25 05/05/25 05/04/25 History mL) subcutaneous pen (Lantus Solostar U-100 Insulin) loperamide 2 mg tablet 2 mg PO QID PRN Diarrhea 05/05/25 Unknown History sitagliptin phosphate 100 mg 100 mg PO DAILY 05/05/25 05/05/25 05/05/25 History tablet (Januvia) Physical Exam 2 Vital Signs and Narrative: Vital Signs: Last Vital Signs Temp 98.3 F 05/05/25 14:18 Pulse 70 05/05/25 14:18 Resp 18 05/05/25 14:18 BP 175/60 H 05/05/25 14:18 Pulse Ox 96 05/05/25 14:18 O2 Del Method Room Air 05/05/25 14:18 BMI result Body Mass Index 34.6 Const: Other: General: AO X 3, no acute distress Resp: CTA bilateral CVS: S1,S2,RRR GI: +BS, NT, no distention Skin: No rash Neuro: motor grossly intact Psych: appropriate affect Results Labs 05/06/25 06:15 05/06/25 06:15 Labs: Laboratory Results - last 24 hr 05/05/25 05/05/25 05/05/25 11:05 11:06 13:33 MCV 96.9 MCH 32.3 MCHC 33.3 RDW 12.3 Plt Count 191 MPV 10.8 Immature Gran % (Auto) 0.8 H Neut % (Auto) 86.9 H Lymph % (Auto) 4.7 L [place] % (Auto) 7.1 Eos % (Auto) 0.3 Baso % (Auto) 0.2 Lymph # (Auto) 0.9 L [place] # (Auto) 1.4 H Eos # (Auto) 0.1 Baso # (Auto) 0.0 Abs Immat Gran (auto) 0.15 H Absolute Neuts (auto) 17.4 H Absolute Nucleated RBC 0.000 Nucleated RBC % (auto) 0.0 Anion Gap 14 Estim Creat Clear Calc 38.4 Estimated GFR 46 Random Glucose 173 H Lactic Acid 2.2 H* Lactic Acid F/U @ 2Hr Calcium 8.9 Magnesium 1.5 L Total Bilirubin 0.7 Direct Bilirubin 0.2 AST 19 ALT 14 Alkaline Phosphatase 82 Total Protein 5.7 L Albumin 3.3 L Lipase 25 Urine Color Yellow Urine Appearance Clear Urine pH 5.5 Ur Specific [place] 1.025 Urine Protein 30 (1+) H Urine Glucose (UA) Negative Urine Ketones Negative Urine Blood Trace H Urine Nitrite Negative Ur Leukocyte Esterase Small (1+) H Urine RBC 0-2 Urine WBC 0-5 Ur Squamous Epith Cells 11-20 Calcium Oxalate Crystal Present Urine Bacteria None Seen Hyaline Casts 3-5 Stool Occult Blood POSITIVE Blood Type O Positive Antibody Screen NEGATIVE 05/05/25 14:26 MCV MCH MCHC RDW Plt Count MPV Immature Gran % (Auto) Neut % (Auto) Lymph % (Auto) [place] % (Auto) Eos % (Auto) Baso % (Auto) Lymph # (Auto) [place] # (Auto) Eos # (Auto) Baso # (Auto) Abs Immat Gran (auto) Absolute Neuts (auto) Absolute Nucleated RBC Nucleated RBC % (auto) Anion Gap Estim Creat Clear Calc Estimated GFR Random Glucose Lactic Acid Lactic Acid F/U @ 2Hr 1.4 Calcium Magnesium Total Bilirubin Direct Bilirubin AST ALT Alkaline Phosphatase Total Protein Albumin Lipase Urine Color Urine Appearance Urine pH Ur Specific [place] Urine Protein Urine Glucose (UA) Urine Ketones Urine Blood Urine Nitrite Ur Leukocyte Esterase Urine RBC Urine WBC Ur Squamous Epith Cells Calcium Oxalate Crystal Urine Bacteria Hyaline Casts Stool Occult Blood Blood Type Antibody Screen Imaging Radiologist's Impressions: Impressions Abdomen/Pelvis CT 05/05/25 13:10 IMPRESSION: Findings compatible with colitis involving the descending and proximal sigmoid colon. This could be infectious, inflammatory, or ischemic in nature. There is no contrast extravasation to suggest active GI bleeding. Electronically signed by: Taiwo Logan MD 05/05/2025 02:30 PM EDT RP Assessment and Plan (1) Enteritis: Status: Acute (2) Uncontrolled hypertension: Status: Acute Plan 79/F with DM, HTN, HLD, chronic back pain, depression here with abdominal pain and found have colitis associated with rectal bleed colitis with abd pain She has Cephalosporin, quinolone and penecillin allerg she's given Flagyl. Will give Meropenem with less chance of pen likel reaction GI consult Liquid diet and advance as jama IV Fluid HTN resume home meds after med rec Diabetes SSI, check pocs Hyperlipidemia. Lipitor Depression. Continue bupropion. Hypothyroidism. Levothyroxine Chronic back pain/central spinal canal and bilateral neuraforamina stenosis at L4-5. Lidocaine patches as needed. DVT prophylaxis: device, giving ongoing gi bleed Code status: Full Quality Stroke Does the patient have a stroke diagnosis?: No VTE Prior VTE?: No VTE Risk Level:: Medical - moderate - high VTE Device Contraindication: N/A - Device Ordered VTE Drug Contraindication: Treatment Not Tolerated (rectalm bleed)
--- OUTSIDE RECORDS SUMMARY | 2025-05-05 15:46 | XMS_ITS | Clinical Summary ---
Author Organization [facility] Address [address] [place] [address] Care Team Providers Care Automatic Dispenser Mechanic Name Role Phone John Herrera Primary Care Provider [phone] Allergies Active Allergy Reactions Criticality Noted Date [...] age to complete this topic Care Teams Automatic Dispenser Mechanic Relationship Specialty Start Date End Date John Herrera [address] [facility] [place] [address] PCP - General Family Medicine 05/30/23
--- OUTSIDE RECORDS SUMMARY | 2025-05-05 15:46 | XMS_ITS | Clinical Summary ---
Author Organization [facility] Address [address] [place] [phone] Phone Care Team Providers Care Folding Machine Setter Name Role Phone John Herrera NP Primary Care Provider [phone] Allergies Active Allergy Reactions Criticality Noted Date [...] [facility] Hematology Oncology [address] [place] [address] Ceasar Colon MD [address] [place] [address] Health Maintenance Due Date Last Done Comments [...] age to complete this topic Insurance MEDICARE [facility] Care Teams Folding Machine Setter Relationship Specialty Start Date End Date [facility] Her[facility] [address] [facility] [place] PCP - General 05/30/23
--- OUTSIDE RECORDS SUMMARY | 2025-05-05 15:46 | XMS_ITS | Encounter Summary ---
Author Organization [facility] Address [address] [place] [address] Phone Care Team Providers Care Call Worker Person Name Role Phone John Herrera NP Primary Care Provider [phone] Reason for Visit * Reason Comments Med Refill Encounter Details Date Type Department Care Team (Late st Contact Info) Description 11/15/2023 Refill [facility] [address] [place] [phone] Karson Law MD Social History Tobacco Use [...] on filedocumented in this encounter Care Teams Call Worker Person Relationship Specialty Start Date End Date John Herrera NP [address] [facility] [place] [id number] PCP - General Nurse Practitioner 09/05/21 documented as of this encounter
--- OUTSIDE RECORDS SUMMARY | 2025-05-05 15:46 | XMS_ITS | Encounter Summary ---
Author Organization [facility] Address [address] [place] [id number] Care Team Providers Care Emergency Registrar Name Role Phone John Herrera MD Primary Care Provider [phone] Encounter Details Date Type Department Care Team (Late st Contact Info) Description 02/03/2024 Scanned Document [facility] Department of Internal Medicine & Nephrology [address] [phone] Karson Law MD [address] [place] [phone] Social History Tobacco Use Types Packs/Day Years [...] Description 12/16/2025 10:20 AM EDT Office Visit [facility] Department of Internal Medicine & Nephrology [place] [address] [place] [id number] Karson Law MD [address] [place] [phone] documented as of this encounter Visit Diagnoses Not on filedocumented in this encounter Care Teams Emergency Registrar Relationship Specialty Start Date End Date John Herrera MD [address] [facility] [place] [address] PCP - General Family Medicine 02/03/24 documented as of this encounter
--- NOTE | 2025-05-05 16:10 | PHA.MEDREC ---
Addendum entered by Estrella Reid RPh 05/05/25 16:22: reviewed by [facility]. Original Note: Pharmacy Consult ? Medication Reconciliation Pharmacy has completed the medication reconciliation. Spoke to patient to confirm med list. Patient had all her rx bottles with her. Patient states she is not taking Acetaminophen 1,300 mg, Ondanserron 4 mg. Patient confirmed lantus Solostar 10-12 units at bedtime, Gabapentin 100 mg daily and Gabapentin 200 mg QPM, Bupropion Hcl 200 mg daily and Bupropion Hcl 100 mg Qpm , even through claims has Bupropion Hcl 100 mg BID. Patient states that her provider increased her dose to TID. Yvonneneil states she can't pick it up from the pharmacy due to it being to soon to fill. Called [facility] and confirmed that there was a new scripted called in 12/20/24 for Bupropion 100 mg TID, however it was up on hold. Patient states she had all her morning medications today.
[2025-05-05] MEDS: Lactated Ringers 1,000 ML 125 ML IVCONT (16:33)
[2025-05-05] MEDS: 0.9 % Sodium Chloride Flush 3 ML SYRINGE IVFLUSH (16:33)
--- NOTE | 2025-05-05 20:08 | MHC.EDTECH ---
pt transported to hospital bed
[2025-05-06] VITALS (7 sets, daily range): BP systolic 118–146; BP diastolic 51–88; PULSE 62–79; RESP 15–18; TEMP 36.1–36.8; O2SAT 97–99; BMI 34.1
--- NOTE | 2025-05-06 00:38 | PC.NURSE ---
Patient denies allergy to Gabapentin.
[2025-05-06] MEDS: Lactated Ringers 1,000 ML 125 ML IVCONT ×3 (01:46→18:38)
[2025-05-06 02:04] LABS: Glucose, Whole Blood 141 mg/dL (60-115)
[2025-05-06 06:51] LABS: Alanine Aminotransferase 7 U/L (0-31); Albumin Level 2.7 g/dL (3.5-5.0); Alkaline Phosphatase 61 U/L (39-117); Anion Gap 11 (12-20); Aspartate Amino Transferase 16 U/L (5-31); Blood Urea Nitrogen 12 mg/dL (9-16); Calcium 8.4 mg/dL (8.4-10.2); Carbon Dioxide 28 mmol/L (22-29); Chloride 103 mmol/L (96-108); Creatinine Clr Calc Pharmacy 46.1; Estimated Glomerular Filt Rate 57; Potassium 3.9 mmol/L (3.3-5.1); Sodium 138 mmol/L (135-145); Total Protein 4.8 g/dL (6.5-8.0)
[2025-05-06 07:17] LABS: Hematocrit 30.0 % (37.0-47.0); Hemoglobin 10.1 g/dl (12.0-16.0); Imm Gran Abs Auto 0.18 X10*3/uL (0.00-0.03); Imm Gran Pct Auto 1.0 % (0.0-0.4); Lymphocytes Absolute Auto 1.4 X10*3/uL (1.2-4.9); MANUAL DIFF FLAG SCAN; Mean Corpuscular HGB Conc 33.7 g/dl (31.0-35.0); Mean Corpuscular Hemoglobin 32.8 pg (27.0-33.0); Mean Corpuscular Volume 97.4 fL (80.0-98.0); NRBC Abs Auto 0.000 X10*3/uL (0.0-0.012); NRBC Pct Auto 0.0 /100WBC (0.0-0.2); Platelet Count 177 X10*3/uL (160-400); Red Blood Count 3.08 X10*6/uL (4.20-5.50); SCAN SMEAR FLAG 1; White Blood Count 18.3 X10*3/uL (4.8-10.8)
[2025-05-06 07:47] LABS: Glucose, Whole Blood 127 mg/dL (60-115)
[2025-05-06] MEDS: metroNIDAZOLE/NS 500 MG/100 ML PIGGYBACK 100 MG IV ×3 (07:50→23:15)
[2025-05-06] MEDS: 0.9 % Sodium Chloride Flush 3 ML SYRINGE IVFLUSH ×3 (07:52→23:16)
--- NOTE | 2025-05-06 07:59 | P.PNIM_ITS ---
Subjective Subjective Date of Service: 05/06/25 Interval History: f/u on colitis, rectal bleed she's reporting persistent lower abdominal pain and assocated with blood H/H is down just slightly 11 to 10 Physical Exam 2 Exam: Exam: General: AO X 3, no acute distress Resp: CTA bilateral CVS: S1,S2,RRR GI: +BS, NT, no distention Skin: No rash Neuro: motor grossly intact Psych: appropriate affect Vital Signs: Vital Signs: Last Vital Signs Temp 96.3 F L 05/06/25 07:20 Pulse 66 05/06/25 07:20 Resp 15 05/06/25 07:20 BP 137/88 05/06/25 07:20 Pulse Ox 97 05/06/25 07:20 O2 Del Method Room Air 05/06/25 07:20 BMI result Body Mass Index 34.1 Const: Other: General: AO X 3, no acute distress Resp: CTA bilateral CVS: S1,S2,RRR GI: +BS, NT, no distention Skin: No rash Neuro: motor grossly intact Psych: appropriate affect Objective Data Active Medications Acetaminophen (Acetaminophen 325 Mg Tablet) 650 mg PO Q6H PRN PRN Reason: Pain, Mild 1-3,fever,headache Atorvastatin Calcium (Atorvastatin Calcium 10 Mg Tablet) 10 mg PO BEDTIME [facility] Last Admin: 05/06/25 01:43 Dose: 10 mg Documented By: AKSHAT Bupropion HCl (Bupropion Hcl 100 Mg Tablet) 100 mg PO BEDTIME [facility] Last Admin: 05/06/25 01:42 Dose: 100 mg Documented By: AKSHAT Bupropion HCl (Bupropion Hcl 100 Mg Tablet) 200 mg PO DAILY [facility] Last Admin: 05/06/25 07:56 Dose: 200 mg Documented By: JENNA Calcium Carbonate (Calcium Carbonate 750 Mg Tab.Chew) 750 mg PO Q4H PRN PRN Reason: Heartburn Carvedilol (Carvedilol 25 Mg Tablet) 25 mg PO BID [facility]; Protocol Last Admin: 05/06/25 07:53 Dose: 25 mg Documented By: JENNA Dextrose (Dextrose 50 % 25 Gm/50 Ml Syringe) 25 gm IVPUSH Q15M PRN; Protocol PRN Reason: per Hypoglycemia Standing Ord. Gabapentin (Gabapentin 100 Mg Capsule) 200 mg PO BEDTIME [facility] Last Admin: 05/06/25 01:42 Dose: 200 mg Documented By: AKSHAT Gabapentin (Gabapentin 100 Mg Capsule) 100 mg PO DAILY [facility] Last Admin: 05/06/25 07:57 Dose: 100 mg Documented By: JENNA Glucose (Glucose Gel 15 Gm Gel..Gram.) 15 gm PO Q15M PRN; Protocol PRN Reason: per Hypoglycemia Standing Ord. Lactated Ringer's (Lr) 1,000 mls @ 125 mls/hr IVCONT .Q8H [facility] Last Admin: 05/06/25 01:46 Dose: 125 mls/hr Documented By: AKSHAT Metronidazole (Flagyl) 500 mg in 100 mls @ 100 mls/hr IV Q8H [facility] Last Admin: 05/06/25 07:50 Dose: 100 mls/hr Documented By: JENNA Insulin Glargine (Insulin Glargine,Hum.Rec.Anlog 100 Unit/Ml 10 Ml Vial) 10 unit SUBCUT BEDTIME [facility] Insulin Human Lispro (Insulin Lispro 100 Unit/Ml 3 Ml Vial) 0 unit SUBCUT QIDACHS [facility]; Protocol Last Admin: 05/06/25 07:35 Dose: Not Given Documented By: JENNA Non-Admin Reason: No Insulin Coverage Levothyroxine Sodium (Levothyroxine Sodium 50 Mcg Tablet) 50 mcg PO DAILY@0600 [facility] Last Admin: 05/06/25 05:53 Dose: 50 mcg Documented By: AKSHAT Magnesium Hydroxide (Milk Of Magnesia 30 Ml Oral.Susp) 30 ml PO DAILY PRN PRN Reason: Constipation Magnesium Oxide (Magnesium Oxide 400 Mg Tablet) 400 mg PO BIDPC [facility] Last Admin: 05/06/25 07:57 Dose: 400 mg Documented By: JENNA Melatonin (Melatonin 3 Mg Tablet) 6 mg PO BEDTIME PRN PRN Reason: Insomnia Meropenem (Meropenem 1 Gm Vial) 1 gm IVPUSH Q12H [facility] Last Admin: 05/06/25 03:57 Dose: 1 gm Documented By: AKSHAT Morphine Sulfate (Morphine Sulfate 4 Mg/Ml Cartridge) 2 mg IVPUSH Q4H PRN; Protocol PRN Reason: Pain, Severe (Pain Scale 7-10) Ondansetron HCl (Ondansetron Hcl 4 Mg/2 Ml Vial) 4 mg IVPUSH Q8H PRN PRN Reason: Nausea and Vomiting Last Admin: 05/06/25 01:39 Dose: 4 mg Documented By: AKSHAT Sitagliptin Phosphate (Sitagliptin Phosphate 100 Mg Tablet) 100 mg PO DAILY [facility] Last Admin: 05/06/25 07:57 Dose: 100 mg Documented By: JENNA Sodium Chloride (0.9 % Sodium Chloride Flush 3 Ml Syringe) 3 ml IVFLUSH QSHIFT [facility] Last Admin: 05/06/25 07:52 Dose: 3 ml Documented By: JENNA Labs 05/06/25 06:15 05/06/25 06:15 Labs: Laboratory Results - last 24 hr 05/05/25 05/05/25 05/05/25 11:05 11:06 13:33 MCV 96.9 MCH 32.3 MCHC 33.3 RDW 12.3 Plt Count 191 MPV 10.8 Immature Gran % (Auto) 0.8 H Neut % (Auto) 86.9 H Lymph % (Auto) 4.7 L [place] % (Auto) 7.1 Eos % (Auto) 0.3 Baso % (Auto) 0.2 Lymph # (Auto) 0.9 L [place] # (Auto) 1.4 H Eos # (Auto) 0.1 Baso # (Auto) 0.0 Abs Immat Gran (auto) 0.15 H Absolute Neuts (auto) 17.4 H Absolute Nucleated RBC 0.000 Nucleated RBC % (auto) 0.0 Smear Tech's Comments Hold Purple Top Anion Gap 14 Estim Creat Clear Calc 38.4 Estimated GFR 46 POC Glucose Random Glucose 173 H Lactic Acid 2.2 H* Lactic Acid F/U @ 2Hr Calcium 8.9 Magnesium 1.5 L Total Bilirubin 0.7 Direct Bilirubin 0.2 AST 19 ALT 14 Alkaline Phosphatase 82 Total Protein 5.7 L Albumin 3.3 L Lipase 25 Urine Color Yellow Urine Appearance Clear Urine pH 5.5 Ur Specific [place] 1.025 Urine Protein 30 (1+) H Urine Glucose (UA) Negative Urine Ketones Negative Urine Blood Trace H Urine Nitrite Negative Ur Leukocyte Esterase Small (1+) H Urine RBC 0-2 Urine WBC 0-5 Ur Squamous Epith Cells 11-20 Calcium Oxalate Crystal Present Urine Bacteria None Seen Hyaline Casts 3-5 Stool Occult Blood POSITIVE Blood Type O Positive Antibody Screen NEGATIVE 05/05/25 05/06/25 05/06/25 14:26 02:01 06:15 MCV 97.4 MCH 32.8 MCHC 33.7 RDW 12.4 Plt Count 177 MPV 11.2 Immature Gran % (Auto) 1.0 H Neut % (Auto) 82.2 H Lymph % (Auto) 7.7 L [place] % (Auto) 8.4 Eos % (Auto) 0.5 Baso % (Auto) 0.2 Lymph # (Auto) 1.4 [place] # (Auto) 1.5 H Eos # (Auto) 0.1 Baso # (Auto) 0.0 Abs Immat Gran (auto) 0.18 H Absolute Neuts (auto) 15.1 H Absolute Nucleated RBC 0.000 Nucleated RBC % (auto) 0.0 Smear Tech's Comments VERIFIED Hold Purple Top SEE NOTE Anion Gap 11 L Estim Creat Clear Calc 46.1 Estimated GFR 57 POC Glucose 141 H Random Glucose 121 H Lactic Acid Lactic Acid F/U @ 2Hr 1.4 Calcium 8.4 Magnesium Total Bilirubin 1.0 Direct Bilirubin AST 16 ALT 7 Alkaline Phosphatase 61 Total Protein 4.8 L Albumin 2.7 L Lipase Urine Color Urine Appearance Urine pH Ur Specific [place] Urine Protein Urine Glucose (UA) Urine Ketones Urine Blood Urine Nitrite Ur Leukocyte Esterase Urine RBC Urine WBC Ur Squamous Epith Cells Calcium Oxalate Crystal Urine Bacteria Hyaline Casts Stool Occult Blood Blood Type Antibody Screen 05/06/25 07:24 MCV MCH MCHC RDW Plt Count MPV Immature Gran % (Auto) Neut % (Auto) Lymph % (Auto) [place] % (Auto) Eos % (Auto) Baso % (Auto) Lymph # (Auto) [place] # (Auto) Eos # (Auto) Baso # (Auto) Abs Immat Gran (auto) Absolute Neuts (auto) Absolute Nucleated RBC Nucleated RBC % (auto) Smear Tech's Comments Hold Purple Top Anion Gap Estim Creat Clear Calc Estimated GFR POC Glucose 127 H Random Glucose Lactic Acid Lactic Acid F/U @ 2Hr Calcium Magnesium Total Bilirubin Direct Bilirubin AST ALT Alkaline Phosphatase Total Protein Albumin Lipase Urine Color Urine Appearance Urine pH Ur Specific [place] Urine Protein Urine Glucose (UA) Urine Ketones Urine Blood Urine Nitrite Ur Leukocyte Esterase Urine RBC Urine WBC Ur Squamous Epith Cells Calcium Oxalate Crystal Urine Bacteria Hyaline Casts Stool Occult Blood Blood Type Antibody Screen Assessment and Plan (1) Colitis: Status: Acute Plan 79/F with DM, HTN, HLD, chronic back pain, depression here with abdominal pain and found have colitis associated with rectal bleed colitis with abd pain and rectal bleed, still with pain, WBC slightly down 20 to 18 She has Cephalosporin, quinolone and penecillin allerg she's given Flagyl. Will give Meropenem with less chance of pen likel reaction GI consult pending Liquid diet and advance as jama IV Fluid Acute blood loss anemia d/t above Monitor H/h HTN resume Coreg Diabetes SSI, Lantus and Januvia check pocs Hyperlipidemia. Lipitor Depression. Continue bupropion. Hypothyroidism. Levothyroxine Neuropathy Gabapentin Chronic back pain/central spinal canal and bilateral neuraforamina stenosis at L4-5. Lidocaine patches as needed. DVT prophylaxis: device, giving ongoing gi bleed Code status: Full Quality Stroke Does the patient have a stroke diagnosis?: No VTE Prior VTE?: No VTE Risk Level:: Medical - moderate - high VTE Device Contraindication: N/A - Device Ordered VTE Drug Contraindication: Treatment Not Tolerated
--- NOTE | 2025-05-06 09:19 | MHC.CM.PN ---
PT REPORTS SHE LIVES ALONE AND IS INDEPENDENT WITH CARE SHE HAS A CANE, SHOWER CHAIR AND GRAB BARS FOR DME COPY OF HCP REQUESTED, SHE REPORTS HER SISTER IS HER AGENT PCP: CHANDU SINCLAIR AND EDMUND DEE DELIVERED DCP: HOME VIA PRIVATE TRANSPORT
--- NOTE | 2025-05-06 10:36 | MHC.CLN ---
NUTRITION WEIGHT LOSS OF 34# OR MORE NOTED IN ADMISSION. REVIEW OF WEIGHT HX SHOWS WEIGHT ESSENTIALLY STABLE X 2 YEARS.
[2025-05-06 11:22] LABS: Glucose, Whole Blood 147 mg/dL (60-115)
--- NOTE | 2025-05-06 11:29 | PC.NURSE ---
5.7 cm #20 iv placed r basilic, pt tolerated well, guidewire utilized
[2025-05-06 16:41] LABS: Glucose, Whole Blood 99 mg/dL (60-115)
--- NOTE | 2025-05-06 16:43 | PC.NURSE ---
Assumed care of PT - pt reported pain in U.S guided IV site, discovered a large infiltrate. IV removed and hot pack applied. IV meds put on hold. Contacted ED for another RN to replace w another U.S. guided IV. Pt tolerated all very well.
--- NOTE | 2025-05-06 18:48 | PM.EVENT ---
Event Note Date of Service: 05/06/25 Event Note: GI Consult-Full note dictated-History from patient and EMR. Imp: I suspect this represents an episode of ischemic colitis given what she describes as a relatively acute episode of some abdominal pain, rectal bleeding with mucous, preceding constipation for a few days, and the segmental distribution of the colitis-type changes on the CT scan. She seems to be clinically improving with less bleeding and less abdominal discomfort. I don't think this represents underlying infectious colitis or IBD such as ulcerative colitis or Crohn's disease. Of note, she had a normal colonoscopy in 03/2024, including biopsies. Rec: Observe, advance diet over the weekend if stable, F/U labs. I don not think she needs a colonoscopy at this time. I told her to stay on some daily Miralax to avoid constipation. Please call if I can be of any further assistance during her hospitalization. D/W patient in detail. Thanks Time Spent With Patient Time: Total time managing care of this patient today ____ minutes.
[2025-05-06 20:01] LABS: Glucose, Whole Blood 120 mg/dL (60-115)
[2025-05-06] MEDS: Insulin Glargine,Hum.rec.anlog 100 UNIT/ML 10 ML VIAL 10 UNIT SUBCUT (20:07)
[2025-05-07] MEDS: Lactated Ringers 1,000 ML 125 ML IVCONT ×2 (01:54→09:28)
[2025-05-07 04:00] VITALS: BP 137/63; PULSE 70; RESP 20; TEMP 37.1; O2SAT 96
--- NOTE | 2025-05-07 04:51 | CONS_ITS ---
DATE OF SERVICE: 05/06/2025 REASON FOR CONSULTATION: Rectal bleeding, abdominal pain, and abnormal CT scan of the colon. HISTORY OF PRESENT ILLNESS: The patient is a 79-year-old female well known to me from previous office visits. I last saw her in July of 2024 at which time things were quite stable. She had undergone upper endoscopy and colonoscopy in March of 2024 due to evaluation of some previous diarrhea, anorexia, and nausea. The GI procedures in March of 2024 revealed a small hiatal hernia, but with biopsies negative for celiac disease, H pylori, inflammatory bowel disease, or microscopic colitis. The colonoscopy was also negative for polyps. When I saw her in July 2024, she was continuing to feel well without any residual GI symptoms at that time. She does describe that she has had intermittent episodes of nausea, vomiting, and diarrhea this year. However, those episodes would typically last for only 2 to 3 days and then resolve spontaneously. They were never associated with any bleeding. She describes that most recently, she had been having some constipation. She then developed some lower abdominal pain, and urge to have a bowel movement, and then with a lot of rectal bleeding. She came to the ER for that. Since admission here, she has been stable. She still has some bleeding from the rectum but in general, this is much improved. She has had no further vomiting. She is somewhat hungry. She denies any recent travel, antibiotic use, NSAID use, or family history of colorectal cancer or inflammatory bowel disease. MEDICATIONS: At home included atorvastatin, bupropion, carvedilol, gabapentin, levothyroxine, lidocaine patch, loperamide, magnesium oxide, Januvia, insulin. Here in the hospital include acetaminophen, atorvastatin, bupropion, Tums, carvedilol, gabapentin, insulin, levothyroxine. PAST MEDICAL HISTORY: Insulin-dependent diabetes mellitus. Hypertension. Kidney stones. Negative colonoscopy with biopsies in March of 2024. She has also had negative colonoscopies in 1998, 2008, and 2018. She had left breast cancer in 2020. She does have some arthritis and spinal stenosis. She does have a history of depression. Also includes hysterectomy and removal of 1 ovary, appendectomy, cholecystectomy, carpal tunnel surgery, 2 knee replacements, and left lumpectomy with radiation treatment in 2020. She has also had cataract surgery. FAMILY HISTORY: Her mother had colon polyps, but there is no other family history of colorectal cancer. SOCIAL HISTORY: She is a . She does not smoke nor use any significant amounts of alcohol. REVIEW OF SYSTEMS: CONSTITUTIONAL: She does describe some constipation prior to the onset of her symptoms. SKIN: Without rash or pruritus. CARDIAC: No chest pain. PULMONARY: No cough, no hemoptysis. GI: As above. PHYSICAL EXAMINATION: GENERAL: The patient is a pleasant, alert female. SKIN: Warm and dry. Anicteric sclerae. CARDIAC: Normal S1, S2. ABDOMEN: Soft, nondistended, nontender. LABORATORY DATA: White blood cell count on admission was 20,000 and today is 18.3. Hemoglobin is 10.1. Platelets 177,000. PT is 10.9 with INR 1.0. Normal electrolytes, BUN, and creatinine. LFTs are normal. Albumin 2.7. IMPRESSION: Given the patient's presentation with relatively acute symptoms, in association with constipation, the rectal bleeding and mucus per rectum, and the CT scan findings, I advised her that I do feel she has had an episode of ischemic colitis contributing to the CT findings as well as the segmental distribution of the colitis type changes on the CT scan. She does seem to be improving over the past 24 to 48 hours with less discomfort and less bleeding. I doubt this represents any type of infectious colitis or inflammatory bowel disease. At this point, I would continue to observe things. I would advance her diet over the weekend if things are stable. I would follow up laboratories as well. I do not think she needs a colonoscopy at this time given her negative exam last year and the clinical history. Hopefully, her diet can be advanced over the weekend and she could then be discharged. I did tell her to stay on some daily MiraLAX to avoid constipation as well. Thank you for the consultation. MD SANDOVAL Darby/DENNIS / [phone]
[2025-05-07] MEDS: metroNIDAZOLE/NS 500 MG/100 ML PIGGYBACK 100 MG IV (06:26)
[2025-05-07 06:48] LABS: Hematocrit 28.8 % (37.0-47.0); Hemoglobin 9.7 g/dl (12.0-16.0); Mean Corpuscular HGB Conc 33.7 g/dl (31.0-35.0); Mean Corpuscular Hemoglobin 32.6 pg (27.0-33.0); Mean Corpuscular Volume 96.6 fL (80.0-98.0); NRBC Abs Auto 0.000 X10*3/uL (0.0-0.012); NRBC Pct Auto 0.0 /100WBC (0.0-0.2); Platelet Count 165 X10*3/uL (160-400); Red Blood Count 2.98 X10*6/uL (4.20-5.50); White Blood Count 17.9 X10*3/uL (4.8-10.8)
[2025-05-07 07:03] LABS: Anion Gap 16 (12-20); Blood Urea Nitrogen 10 mg/dL (9-16); Calcium 8.1 mg/dL (8.4-10.2); Carbon Dioxide 26 mmol/L (22-29); Chloride 101 mmol/L (96-108); Creatinine Clr Calc Pharmacy 42.9; Estimated Glomerular Filt Rate 53; Potassium 3.6 mmol/L (3.3-5.1); Sodium 139 mmol/L (135-145)
[2025-05-07 07:34] LABS: Glucose, Whole Blood 124 mg/dL (60-115)
[2025-05-07 07:40] VITALS: BP 114/56; PULSE 68; RESP 18; TEMP 36.6; O2SAT 97
--- NOTE | 2025-05-07 08:56 | P.PNIM_ITS ---
Subjective Subjective Date of Service: 05/07/25 Interval History: f/u on colitis, rectal bleed pain is better and less blood with bms Physical Exam 2 Exam: Exam: General: AO X 3, no acute distress Resp: CTA bilateral CVS: S1,S2,RRR GI: +BS, NT, no distention Skin: No rash Neuro: motor grossly intact Psych: appropriate affect Vital Signs: Vital Signs: Last Vital Signs Temp 97.9 F 05/07/25 07:40 Pulse 68 05/07/25 07:40 Resp 18 05/07/25 07:40 BP 114/56 L 05/07/25 07:40 Pulse Ox 97 05/07/25 07:40 O2 Del Method Room Air 05/07/25 07:40 BMI result Body Mass Index 34.1 Const: Other: General: AO X 3, no acute distress Resp: CTA bilateral CVS: S1,S2,RRR GI: +BS, NT, no distention Skin: No rash Neuro: motor grossly intact Psych: appropriate affect Objective Data Active Medications Acetaminophen (Acetaminophen 325 Mg Tablet) 650 mg PO Q6H PRN PRN Reason: Pain, Mild 1-3,fever,headache Atorvastatin Calcium (Atorvastatin Calcium 10 Mg Tablet) 10 mg PO BEDTIME [facility] Last Admin: 05/06/25 20:02 Dose: 10 mg Documented By: GLEN Bupropion HCl (Bupropion Hcl 100 Mg Tablet) 100 mg PO BEDTIME [facility] Last Admin: 05/06/25 20:02 Dose: 100 mg Documented By: GLEN Bupropion HCl (Bupropion Hcl 100 Mg Tablet) 200 mg PO DAILY [facility] Last Admin: 05/06/25 07:56 Dose: 200 mg Documented By: JENNA Calcium Carbonate (Calcium Carbonate 750 Mg Tab.Chew) 750 mg PO Q4H PRN PRN Reason: Heartburn Carvedilol (Carvedilol 25 Mg Tablet) 25 mg PO BID [facility]; Protocol Last Admin: 05/06/25 20:02 Dose: 25 mg Documented By: GLEN Dextrose (Dextrose 50 % 25 Gm/50 Ml Syringe) 25 gm IVPUSH Q15M PRN; Protocol PRN Reason: per Hypoglycemia Standing Ord. Gabapentin (Gabapentin 100 Mg Capsule) 200 mg PO BEDTIME [facility] Last Admin: 05/06/25 20:02 Dose: 200 mg Documented By: GLEN Gabapentin (Gabapentin 100 Mg Capsule) 100 mg PO DAILY [facility] Last Admin: 05/06/25 07:57 Dose: 100 mg Documented By: JENNA Glucose (Glucose Gel 15 Gm Gel..Gram.) 15 gm PO Q15M PRN; Protocol PRN Reason: per Hypoglycemia Standing Ord. Lactated Ringer's (Lr) 1,000 mls @ 125 mls/hr IVCONT .Q8H [facility] Last Admin: 05/07/25 01:54 Dose: 125 mls/hr Documented By: GLEN Metronidazole (Flagyl) 500 mg in 100 mls @ 100 mls/hr IV Q8H [facility] Last Admin: 05/07/25 06:26 Dose: 100 mls/hr Documented By: GLEN Insulin Glargine (Insulin Glargine,Hum.Rec.Anlog 100 Unit/Ml 10 Ml Vial) 10 unit SUBCUT BEDTIME [facility] Last Admin: 05/06/25 20:07 Dose: 10 unit Documented By: GLEN Insulin Human Lispro (Insulin Lispro 100 Unit/Ml 3 Ml Vial) 0 unit SUBCUT QIDACHS [facility]; Protocol Last Admin: 05/07/25 07:36 Dose: Not Given Documented By: YAN Non-Admin Reason: No Insulin Coverage Levothyroxine Sodium (Levothyroxine Sodium 50 Mcg Tablet) 50 mcg PO DAILY@0600 [facility] Last Admin: 05/07/25 06:25 Dose: 50 mcg Documented By: GLEN Magnesium Hydroxide (Milk Of Magnesia 30 Ml Oral.Susp) 30 ml PO DAILY PRN PRN Reason: Constipation Magnesium Oxide (Magnesium Oxide 400 Mg Tablet) 400 mg PO BIDPC [facility] Last Admin: 05/06/25 17:48 Dose: 400 mg Documented By: HELEN Melatonin (Melatonin 3 Mg Tablet) 6 mg PO BEDTIME PRN PRN Reason: Insomnia Meropenem (Meropenem 1 Gm Vial) 1 gm IVPUSH Q12H [facility] Last Admin: 05/07/25 04:04 Dose: 1 gm Documented By: GLEN Morphine Sulfate (Morphine Sulfate 4 Mg/Ml Cartridge) 2 mg IVPUSH Q4H PRN; Protocol PRN Reason: Pain, Severe (Pain Scale 7-10) Ondansetron HCl (Ondansetron Hcl 4 Mg/2 Ml Vial) 4 mg IVPUSH Q8H PRN PRN Reason: Nausea and Vomiting Last Admin: 05/06/25 14:39 Dose: 4 mg Documented By: JENNA Sitagliptin Phosphate (Sitagliptin Phosphate 100 Mg Tablet) 100 mg PO DAILY [facility] Last Admin: 05/06/25 07:57 Dose: 100 mg Documented By: JENNA Sodium Chloride (0.9 % Sodium Chloride Flush 3 Ml Syringe) 3 ml IVFLUSH QSHIFT [facility] Last Admin: 05/06/25 23:16 Dose: 3 ml Documented By: GLEN Labs 05/07/25 05:56 05/07/25 05:56 Labs: Laboratory Results - last 24 hr 05/06/25 05/06/25 05/06/25 11:15 16:38 19:57 MCV MCH MCHC RDW Plt Count MPV Absolute Nucleated RBC Nucleated RBC % (auto) Anion Gap Estim Creat Clear Calc Estimated GFR POC Glucose 147 H 99 120 H Random Glucose Calcium 05/07/25 05/07/25 05:56 07:09 MCV 96.6 MCH 32.6 MCHC 33.7 RDW 12.4 Plt Count 165 MPV 10.8 Absolute Nucleated RBC 0.000 Nucleated RBC % (auto) 0.0 Anion Gap 16 Estim Creat Clear Calc 42.9 Estimated GFR 53 POC Glucose 124 H Random Glucose 162 H Calcium 8.1 L Microbiology Microbiology Results: Microbiology 05/05/25 13:33 Urine Culture - Final Urine clean catch - Clean Catch Midstream Klebsiella pneumoniae 05/05/25 11:05 Blood Culture - Preliminary Blood - Venous No growth after 24 hours. 05/05/25 11:05 Blood Culture - Preliminary Blood - Venous No growth after 24 hours. Assessment and Plan (1) Colitis: Status: Acute Plan 79/F with DM, HTN, HLD, chronic back pain, depression here with abdominal pain and found have colitis associated with rectal bleed colitis with abd pain and rectal bleed, suspect possible ischemic colitis vs infection, wbc trendind down, clinically improving She has Cephalosporin, quinolone and penecillin allerg she's given Flagyl. Will give Meropenem with less chance of pen likel reaction GI recommends conservative management, advnancing diet, she wants regular food DC ivf if tolerating regular food Acute blood loss anemia d/t above Monitor H/h HTN Coreg Diabetes SSI, Lantus and Januvia check pocs Hyperlipidemia. Lipitor Depression. Continue bupropion. Hypothyroidism. Levothyroxine Neuropathy Gabapentin Chronic back pain/central spinal canal and bilateral neuraforamina stenosis at L4-5. Lidocaine patches as needed. DVT prophylaxis: device, giving ongoing gi bleed Code status: Full out of bed and ambulate Quality Stroke Does the patient have a stroke diagnosis?: No VTE Prior VTE?: No VTE Risk Level:: Medical - moderate - high VTE Device Contraindication: N/A - Device Ordered VTE Drug Contraindication: Treatment Not Tolerated
[2025-05-07 11:24] LABS: Glucose, Whole Blood 149 mg/dL (60-115)
--- NOTE | 2025-05-07 13:23 | HE.PHANOTE ---
IV: PO Conversion 05/07/25 @ 1325 Current regimen: Metronidazole IV 500 mg q8H Criteria: decreasing WBC, afebrile, and on a regular diet New regimen: Metronidazole PO 500 mg Q8H PO Start time: 05/07/25 @ 1400 Tammy Mcdermott, PharmD
[2025-05-07 15:26] VITALS: BP 130/61; PULSE 71; RESP 17; TEMP 36.3; O2SAT 98
[2025-05-07] MEDS: 0.9 % Sodium Chloride Flush 3 ML SYRINGE IVFLUSH (16:24)
[2025-05-07 16:27] LABS: Glucose, Whole Blood 127 mg/dL (60-115)
[2025-05-07 20:00] VITALS: BP 138/70; PULSE 66; RESP 17; TEMP 36.4; O2SAT 96
[2025-05-07 20:49] LABS: Glucose, Whole Blood 130 mg/dL (60-115)
[2025-05-07] MEDS: Insulin Glargine,Hum.rec.anlog 100 UNIT/ML 10 ML VIAL 10 UNIT SUBCUT (21:43)
[2025-05-08 03:38] VITALS: BP 147/81; PULSE 65; RESP 17; TEMP 36.7; O2SAT 98
[2025-05-08 07:32] LABS: Glucose, Whole Blood 105 mg/dL (60-115)
[2025-05-08 07:44] VITALS: BP 157/67; PULSE 70; RESP 18; TEMP 36.4; O2SAT 98
[2025-05-08] MEDS: 0.9 % Sodium Chloride Flush 3 ML SYRINGE IVFLUSH ×3 (07:54→22:04)
[2025-05-08 09:20] LABS: Hematocrit 28.8 % (37.0-47.0); Hemoglobin 9.5 g/dl (12.0-16.0); Mean Corpuscular HGB Conc 33.0 g/dl (31.0-35.0); Mean Corpuscular Hemoglobin 32.2 pg (27.0-33.0); Mean Corpuscular Volume 97.6 fL (80.0-98.0); NRBC Abs Auto 0.000 X10*3/uL (0.0-0.012); NRBC Pct Auto 0.0 /100WBC (0.0-0.2); Platelet Count 161 X10*3/uL (160-400); Red Blood Count 2.95 X10*6/uL (4.20-5.50); White Blood Count 9.4 X10*3/uL (4.8-10.8)
--- NOTE | 2025-05-08 11:07 | HO.PM.IMPN ---
Subjective Subjective Date of Service: 05/08/25 Interval History: f/u on colitis, rectal bleed more comfortable and minimal blood in stool, WBC down to normal Physical Exam Exam: Exam: General: AO X 3, no acute distress Resp: CTA bilateral CVS: S1,S2,RRR GI: +BS, NT, no distention Skin: No rash Neuro: motor grossly intact Psych: appropriate affect Vital Signs: Vital Signs: Last Vital Signs Temp 97.6 F 05/08/25 07:44 Pulse 70 05/08/25 07:44 Resp 18 05/08/25 07:44 BP 157/67 H 05/08/25 07:44 Pulse Ox 98 05/08/25 07:44 O2 Del Method Room Air 05/08/25 07:44 BMI result Body Mass Index 34.1 Objective Data Active Medications Acetaminophen (Acetaminophen 325 Mg Tablet) 650 mg PO Q6H PRN PRN Reason: Pain, Mild 1-3,fever,headache Atorvastatin Calcium (Atorvastatin Calcium 10 Mg Tablet) 10 mg PO BEDTIME [facility] Last Admin: 05/07/25 21:45 Dose: 10 mg Documented By: NIKOLE Bupropion HCl (Bupropion Hcl 100 Mg Tablet) 100 mg PO BEDTIME [facility] Last Admin: 05/07/25 21:45 Dose: 100 mg Documented By: NIKOLE Bupropion HCl (Bupropion Hcl 100 Mg Tablet) 200 mg PO DAILY [facility] Last Admin: 05/08/25 07:53 Dose: 200 mg Documented By: RANI Calcium Carbonate (Calcium Carbonate 750 Mg Tab.Chew) 750 mg PO Q4H PRN PRN Reason: Heartburn Carvedilol (Carvedilol 25 Mg Tablet) 25 mg PO BID [facility]; Protocol Last Admin: 05/08/25 07:53 Dose: 25 mg Documented By: RANI Dextrose (Dextrose 50 % 25 Gm/50 Ml Syringe) 25 gm IVPUSH Q15M PRN; Protocol PRN Reason: per Hypoglycemia Standing Ord. Gabapentin (Gabapentin 100 Mg Capsule) 200 mg PO BEDTIME [facility] Last Admin: 05/07/25 21:44 Dose: 200 mg Documented By: NIKOLE Gabapentin (Gabapentin 100 Mg Capsule) 100 mg PO DAILY [facility] Last Admin: 05/08/25 07:54 Dose: 100 mg Documented By: RANI Glucose (Glucose Gel 15 Gm Gel..Gram.) 15 gm PO Q15M PRN; Protocol PRN Reason: per Hypoglycemia Standing Ord. Insulin Glargine (Insulin Glargine,Hum.Rec.Anlog 100 Unit/Ml 10 Ml Vial) 10 unit SUBCUT BEDTIME [facility] Last Admin: 05/07/25 21:43 Dose: 10 unit Documented By: NIKOLE Insulin Human Lispro (Insulin Lispro 100 Unit/Ml 3 Ml Vial) 0 unit SUBCUT QIDACHS [facility]; Protocol Last Admin: 05/08/25 07:52 Dose: Not Given Documented By: RANI Non-Admin Reason: No Insulin Coverage Levothyroxine Sodium (Levothyroxine Sodium 50 Mcg Tablet) 50 mcg PO DAILY@0600 [facility] Last Admin: 05/08/25 06:00 Dose: 50 mcg Documented By: NIKOLE Magnesium Hydroxide (Milk Of Magnesia 30 Ml Oral.Susp) 30 ml PO DAILY PRN PRN Reason: Constipation Magnesium Oxide (Magnesium Oxide 400 Mg Tablet) 400 mg PO BIDPC [facility] Last Admin: 05/08/25 07:54 Dose: 400 mg Documented By: RANI Melatonin (Melatonin 3 Mg Tablet) 6 mg PO BEDTIME PRN PRN Reason: Insomnia Meropenem (Meropenem 1 Gm Vial) 1 gm IVPUSH Q12H [facility] Last Admin: 05/08/25 04:00 Dose: 1 gm Documented By: NIKOLE Metronidazole (Metronidazole 500 Mg Tablet) 500 mg PO Q8H [facility] Last Admin: 05/08/25 06:00 Dose: 500 mg Documented By: NIKOLE Morphine Sulfate (Morphine Sulfate 4 Mg/Ml Cartridge) 2 mg IVPUSH Q4H PRN; Protocol PRN Reason: Pain, Severe (Pain Scale 7-10) Ondansetron HCl (Ondansetron Hcl 4 Mg/2 Ml Vial) 4 mg IVPUSH Q8H PRN PRN Reason: Nausea and Vomiting Last Admin: 05/08/25 03:57 Dose: 4 mg Documented By: NIKOLE Sitagliptin Phosphate (Sitagliptin Phosphate 100 Mg Tablet) 100 mg PO DAILY [facility] Last Admin: 05/08/25 07:54 Dose: 100 mg Documented By: RANI Sodium Chloride (0.9 % Sodium Chloride Flush 3 Ml Syringe) 3 ml IVFLUSH QSHIFT [facility] Last Admin: 05/08/25 07:54 Dose: 3 ml Documented By: RANI Labs 05/08/25 08:46 05/07/25 05:56 Labs: Laboratory Results - last 24 hr 05/07/25 05/07/25 05/07/25 11:17 16:19 20:41 MCV MCH MCHC RDW Plt Count MPV Absolute Nucleated RBC Nucleated RBC % (auto) POC Glucose 149 H 127 H 130 H 05/08/25 05/08/25 07:13 08:46 MCV 97.6 MCH 32.2 MCHC 33.0 RDW 12.4 Plt Count 161 MPV 11.2 Absolute Nucleated RBC 0.000 Nucleated RBC % (auto) 0.0 POC Glucose 105 Microbiology Microbiology Results: Microbiology 05/05/25 11:05 Blood Culture - Preliminary Blood - Venous No growth after 48 hours. 05/05/25 11:05 Blood Culture - Preliminary Blood - Venous No growth after 48 hours. 05/05/25 13:33 Urine Culture - Final Urine clean catch - Clean Catch Midstream Klebsiella pneumoniae Assessment and Plan (1) Colitis: Status: Acute Plan 79/F with DM, HTN, HLD, chronic back pain, depression here with abdominal pain and found have colitis associated with rectal bleed colitis with abd pain and rectal bleed, suspect possible ischemic colitis vs infection, wbc trendind down, clinically improving. WBC is now normal She has Cephalosporin, quinolone and penecillin allerg she's given Flagyl. Will give Meropenem with less chance of pen likel reaction--change to PO Flagyl and Bactrim tomorrow GI recommends conservative management, advnancing diet, she wants regular food DC ivf if tolerating regular food Acute blood loss anemia d/t above, H/H has been stable no indication for transfusion Monitor H/h HTN Coreg Diabetes SSI, Lantus and Januvia check pocs Hyperlipidemia. Lipitor Depression. Continue bupropion. Hypothyroidism. Levothyroxine Neuropathy Gabapentin Chronic back pain/central spinal canal and bilateral neuraforamina stenosis at L4-5. Lidocaine patches as needed. DVT prophylaxis: device, giving ongoing gi bleed Code status: Full out of bed and ambulate Quality Stroke Does the patient have a stroke diagnosis?: No VTE Prior VTE?: No VTE Risk Level:: Medical - moderate - high VTE Device Contraindication: N/A - Device Ordered VTE Drug Contraindication: Treatment Not Tolerated
[2025-05-08 11:26] LABS: Glucose, Whole Blood 164 mg/dL (60-115)
[2025-05-08 15:05] VITALS: BP 156/64; PULSE 69; RESP 18; TEMP 36.1; O2SAT 97
[2025-05-08 16:11] LABS: Glucose, Whole Blood 142 mg/dL (60-115)
[2025-05-08 20:00] VITALS: BP 152/69; PULSE 72; RESP 16; TEMP 36.6; O2SAT 97
[2025-05-08 21:25] LABS: Glucose, Whole Blood 137 mg/dL (60-115)
[2025-05-08] MEDS: Sulfamethox/Trimeth 800/160 TABLET 1 TAB PO (22:02)
[2025-05-08] MEDS: Insulin Glargine,Hum.rec.anlog 100 UNIT/ML 10 ML VIAL 10 UNIT SUBCUT (22:03)
[2025-05-09 04:00] VITALS: BP 137/65; PULSE 67; RESP 16; TEMP 36.4; O2SAT 98
[2025-05-09 07:31] LABS: Glucose, Whole Blood 132 mg/dL (60-115)
[2025-05-09 07:52] VITALS: BP 159/77; PULSE 67; RESP 16; TEMP 37; O2SAT 97
[2025-05-09] MEDS: Sulfamethox/Trimeth 800/160 TABLET 1 TAB PO ×2 (08:40→23:00)
[2025-05-09] MEDS: 0.9 % Sodium Chloride Flush 3 ML SYRINGE IVFLUSH ×2 (08:41→17:40)
--- NOTE | 2025-05-09 10:40 | HO.PM.IMPN ---
Subjective Subjective Date of Service: 05/09/25 Interval History: f/u on colitis, rectal bleed She reports having episodes of nausea and vomitting overnight and doesn't feel like eating this morning. Physical Exam Exam: Exam: General: AO X 3, no acute distress Resp: CTA bilateral CVS: S1,S2,RRR GI: +BS, NT, no distention Skin: No rash Neuro: motor grossly intact Psych: appropriate affect Vital Signs: Vital Signs: Last Vital Signs Temp 98.6 F 05/09/25 07:52 Pulse 67 05/09/25 07:52 Resp 16 05/09/25 07:52 BP 159/77 H 05/09/25 07:52 Pulse Ox 97 05/09/25 07:52 O2 Del Method Room Air 05/09/25 07:52 BMI result Body Mass Index 34.1 Objective Data Active Medications Acetaminophen (Acetaminophen 325 Mg Tablet) 650 mg PO Q6H PRN PRN Reason: Pain, Mild 1-3,fever,headache Atorvastatin Calcium (Atorvastatin Calcium 10 Mg Tablet) 10 mg PO BEDTIME [facility] Last Admin: 05/08/25 22:04 Dose: 10 mg Documented By: KYLEE Bupropion HCl (Bupropion Hcl 100 Mg Tablet) 100 mg PO BEDTIME [facility] Last Admin: 05/08/25 22:02 Dose: 100 mg Documented By: KYLEE Bupropion HCl (Bupropion Hcl 100 Mg Tablet) 200 mg PO DAILY [facility] Last Admin: 05/09/25 08:40 Dose: 200 mg Documented By: DARIUSZ Calcium Carbonate (Calcium Carbonate 750 Mg Tab.Chew) 750 mg PO Q4H PRN PRN Reason: Heartburn Carvedilol (Carvedilol 25 Mg Tablet) 25 mg PO BID [facility]; Protocol Last Admin: 05/09/25 08:40 Dose: 25 mg Documented By: DARIUSZ Dextrose (Dextrose 50 % 25 Gm/50 Ml Syringe) 25 gm IVPUSH Q15M PRN; Protocol PRN Reason: per Hypoglycemia Standing Ord. Gabapentin (Gabapentin 100 Mg Capsule) 200 mg PO BEDTIME [facility] Last Admin: 05/08/25 22:02 Dose: 200 mg Documented By: KYLEE Gabapentin (Gabapentin 100 Mg Capsule) 100 mg PO DAILY [facility] Last Admin: 05/09/25 08:40 Dose: 100 mg Documented By: DARIUSZ Glucose (Glucose Gel 15 Gm Gel..Gram.) 15 gm PO Q15M PRN; Protocol PRN Reason: per Hypoglycemia Standing Ord. Insulin Glargine (Insulin Glargine,Hum.Rec.Anlog 100 Unit/Ml 10 Ml Vial) 10 unit SUBCUT BEDTIME [facility] Last Admin: 05/08/25 22:03 Dose: 10 unit Documented By: KYLEE Insulin Human Lispro (Insulin Lispro 100 Unit/Ml 3 Ml Vial) 0 unit SUBCUT QIDACHS [facility]; Protocol Last Admin: 05/09/25 07:36 Dose: Not Given Documented By: DARIUSZ Non-Admin Reason: No Insulin Coverage Levothyroxine Sodium (Levothyroxine Sodium 50 Mcg Tablet) 50 mcg PO DAILY@0600 [facility] Last Admin: 05/09/25 05:10 Dose: 50 mcg Documented By: KYLEE Magnesium Hydroxide (Milk Of Magnesia 30 Ml Oral.Susp) 30 ml PO DAILY PRN PRN Reason: Constipation Magnesium Oxide (Magnesium Oxide 400 Mg Tablet) 400 mg PO BIDPC [facility] Last Admin: 05/09/25 08:40 Dose: 400 mg Documented By: DARIUSZ Melatonin (Melatonin 3 Mg Tablet) 6 mg PO BEDTIME PRN PRN Reason: Insomnia Last Admin: 05/08/25 22:01 Dose: 6 mg Documented By: KYLEE Metronidazole (Metronidazole 500 Mg Tablet) 500 mg PO Q8H [facility] Last Admin: 05/09/25 05:10 Dose: 500 mg Documented By: KYLEE Morphine Sulfate (Morphine Sulfate 4 Mg/Ml Cartridge) 2 mg IVPUSH Q4H PRN; Protocol PRN Reason: Pain, Severe (Pain Scale 7-10) Ondansetron HCl (Ondansetron Hcl 4 Mg/2 Ml Vial) 4 mg IVPUSH Q8H PRN PRN Reason: Nausea and Vomiting Last Admin: 05/09/25 08:44 Dose: 4 mg Documented By: DARIUSZ Sitagliptin Phosphate (Sitagliptin Phosphate 100 Mg Tablet) 100 mg PO DAILY [facility] Last Admin: 05/09/25 08:40 Dose: 100 mg Documented By: DARIUSZ Sodium Chloride (0.9 % Sodium Chloride Flush 3 Ml Syringe) 3 ml IVFLUSH QSHIFT [facility] Last Admin: 05/09/25 08:41 Dose: 3 ml Documented By: DARIUSZ Trimethoprim/Sulfamethoxazole (Sulfamethox/Trimeth 800/160 Tablet) 1 tab PO BID [facility] Last Admin: 05/09/25 08:40 Dose: 1 tab Documented By: DARIUSZ Labs 05/08/25 08:46 05/07/25 05:56 Labs: Laboratory Results - last 24 hr 05/08/25 05/08/25 05/08/25 11:08 16:07 20:15 POC Glucose 164 H 142 H 137 H 05/09/25 07:19 POC Glucose 132 H Microbiology Microbiology Results: Microbiology 05/05/25 11:05 Blood Culture - Preliminary Blood - Venous No growth after 48 hours. 05/05/25 11:05 Blood Culture - Preliminary Blood - Venous No growth after 48 hours. 05/05/25 13:33 Urine Culture - Final Urine clean catch - Clean Catch Midstream Klebsiella pneumoniae Assessment and Plan (1) Colitis: Status: Acute Plan 79/F with DM, HTN, HLD, chronic back pain, depression here with abdominal pain and found have colitis associated with rectal bleed colitis with abd pain and rectal bleed, suspect possible ischemic colitis vs infection, wbc trendind down, clinically improving. WBC is now normal She has Cephalosporin, quinolone and penecillin allerg she's given Flagyl. Will give Meropenem with less chance of pen likel reaction--change to PO Flagyl and Bactrim tomorrow GI recommends conservative management, advnancing diet, she wants regular food DC ivf if tolerating regular food Nausea and vomiting likely from Bactrim Acute blood loss anemia d/t above, H/H has been stable no indication for transfusion Monitor H/h HTN Coreg Diabetes SSI, Lantus and Januvia check pocs Hyperlipidemia. Lipitor Depression. Continue bupropion. Hypothyroidism. Levothyroxine Neuropathy Gabapentin Chronic back pain/central spinal canal and bilateral neuraforamina stenosis at L4-5. Lidocaine patches as needed. DVT prophylaxis: device, giving ongoing gi bleed Code status: Full out of bed and ambulate Quality Stroke Does the patient have a stroke diagnosis?: No VTE Prior VTE?: No VTE Risk Level:: Medical - moderate - high VTE Device Contraindication: N/A - Device Ordered VTE Drug Contraindication: Treatment Not Tolerated
[2025-05-09 11:17] LABS: Glucose, Whole Blood 114 mg/dL (60-115)
[2025-05-09 11:44] LABS: Hematocrit 28.8 % (37.0-47.0); Hemoglobin 9.6 g/dl (12.0-16.0); Mean Corpuscular HGB Conc 33.3 g/dl (31.0-35.0); Mean Corpuscular Hemoglobin 31.8 pg (27.0-33.0); Mean Corpuscular Volume 95.4 fL (80.0-98.0); NRBC Abs Auto 0.000 X10*3/uL (0.0-0.012); NRBC Pct Auto 0.0 /100WBC (0.0-0.2); PLT CLUMP 1; Red Blood Count 3.02 X10*6/uL (4.20-5.50); White Blood Count 6.1 X10*3/uL (4.8-10.8)
[2025-05-09 11:46] LABS: Anion Gap 12 (12-20); Blood Urea Nitrogen 8 mg/dL (9-16); Calcium 8.4 mg/dL (8.4-10.2); Carbon Dioxide 25 mmol/L (22-29); Chloride 105 mmol/L (96-108); Creatinine Clr Calc Pharmacy 45.6; Estimated Glomerular Filt Rate 56; Potassium 3.7 mmol/L (3.3-5.1); Sodium 138 mmol/L (135-145)
--- NOTE | 2025-05-09 11:55 | MHC.CM.PN ---
No discharge today per MD. Patient reports N/V today. DP Home self care. Patient will arrange for a ride home at discharge.
[2025-05-09 15:20] VITALS: BP 123/74; PULSE 62; RESP 18; TEMP 36.8; O2SAT 99
[2025-05-09 16:54] LABS: Glucose, Whole Blood 115 mg/dL (60-115)
[2025-05-09 19:21] VITALS: BP 161/79; PULSE 66; RESP 18; TEMP 36.9; O2SAT 96
[2025-05-09 21:01] LABS: Glucose, Whole Blood 158 mg/dL (60-115)
[2025-05-09 22:59] VITALS: BP 161/79; PULSE 66
[2025-05-09] MEDS: Insulin Glargine,Hum.rec.anlog 100 UNIT/ML 10 ML VIAL 10 UNIT SUBCUT (22:59)
[2025-05-10] MEDS: 0.9 % Sodium Chloride Flush 3 ML SYRINGE IVFLUSH ×2 (00:07→08:10)
[2025-05-10 03:37] VITALS: BP 148/64; PULSE 63; RESP 18; TEMP 36.3; O2SAT 97
[2025-05-10 07:37] VITALS: BP 195/74; PULSE 65; RESP 16; TEMP 36.2; O2SAT 98
[2025-05-10 07:54] LABS: Glucose, Whole Blood 121 mg/dL (60-115)
[2025-05-10] MEDS: Sulfamethox/Trimeth 800/160 TABLET 1 TAB PO (08:10)
[2025-05-10 10:30] VITALS: BP 129/84
[2025-05-10 11:09] LABS: Glucose, Whole Blood 97 mg/dL (60-115)
--- NOTE | 2025-05-10 11:33 | P.DS_ITS ---
DS: Providers Provider Date of Service: 05/10/25 Date of admission: 05/05/25 15:18 Date of discharge: 05/10/25 Primary care physician: GRECIA WelchP- Consults: 05/05/25 15:14 Consult to Gastroenterology Routine Consulting Provider: [facility] Reason for consultation: Colitis with rectal bleeding Has provider been notified: No DS: Diagnosis Discharge Diagnosis (1) Colitis: Status: Acute DS: Summary Hospital Course Hospital Course: Chief Complaint: Abominal pain 79 years old woman with past medical history significant for type 2 diabetes mellitus on insulin, hypertension, hyperlipidemia, breast cancer status post radiation and lumpectomy; and chronic back pain presents with mid abdominal pain pain for 2 days, she reports been constipated and having time passing and finally was able to pass small amount of stools but was associated with some blood, but today noted much more blood coming out and scared her to come in. She reports no fever or chils, nause but no vomiting. Work up show colitis on CT and WBC is 20K, she's given IV Flagyl in light multiple Abx allergies. hospital course: 79/F with DM, HTN, HLD, chronic back pain, depression here with abdominal pain and found have colitis associated with rectal bleed, elevated WBC and metabolic acidosis. She was initially treated with IV antibiotics. She was evaluated by GI and thought that she likely suffered acute focal ischemic bowel. Over the course of hospitalization her condition has significantly improved, WBC has reduced to normal. Her abdominal pain has improved significantly. She is no longer having rectal bleeding. No plan for intervention at this time by GI. She has completed nearly 5 days of days of antibiotics and will be discharged with 3 more days. She will need to follow up with her primary care physician along with a GI doctor on outpatient basis. She is tolerating present regular diet. Nausea and vomiting likely from Bactrim, now stopped Acute blood loss anemia d/t above, H/H has been stable no indication for transfusion Monitor H/h HTN Coreg Diabetes SSI, Lantus and Januvia check pocs Hyperlipidemia. Lipitor Depression. Continue bupropion. Hypothyroidism. Levothyroxine Neuropathy Gabapentin Chronic back pain/central spinal canal and bilateral neuraforamina stenosis at L4-5. Lidocaine patches as needed. Time Attestation Discharge Coordination Time (in mins): 45 Quality: Safe Use of Opioids Does Pt have an Active Cancer Diagnosis on the Problem List?: No Quality: Stroke Does the patient have a stroke diagnosis?: No Physical Exam Vital Signs: Vital Signs: Last Vital Signs Temp 97.1 F 05/10/25 07:37 Pulse 65 05/10/25 07:37 Resp 16 05/10/25 07:37 BP 195/74 H 05/10/25 07:37 Pulse Ox 98 05/10/25 07:37 O2 Del Method Room Air 05/10/25 07:37 BMI result Body Mass Index 34.1 DS: Data Data Completed and Pending Labs on day of discharge: Laboratory Results - last 24 hr 05/09/25 05/09/25 05/09/25 11:21 16:46 20:27 WBC 6.1 RBC 3.02 L Hgb 9.6 L Hct 28.8 L MCV 95.4 MCH 31.8 MCHC 33.3 RDW 12.3 Plt Count TNP MPV TNP Absolute Nucleated RBC 0.000 Nucleated RBC % (auto) 0.0 Sodium 138 Potassium 3.7 Chloride 105 Carbon Dioxide 25 Anion Gap 12 BUN 8 L Creatinine 0.96 Estim Creat Clear Calc 45.6 Estimated GFR 56 POC Glucose 115 158 H Random Glucose 120 H Calcium 8.4 05/10/25 05/10/25 07:43 10:53 WBC RBC Hgb Hct MCV MCH MCHC RDW Plt Count MPV Absolute Nucleated RBC Nucleated RBC % (auto) Sodium Potassium Chloride Carbon Dioxide Anion Gap BUN Creatinine Estim Creat Clear Calc Estimated GFR POC Glucose 121 H 97 Random Glucose Calcium Preliminary micro results at discharge 05/05/25 11:05 Blood Culture - Preliminary Blood - Venous No growth after 48 hours. 05/05/25 11:05 Blood Culture - Preliminary Blood - Venous No growth after 48 hours. Discharge Plan Discharge Anticipated Discharge Date/Time: 05/10/25 11:41 Patient Disposition: Home, Self-Care Discharge Diagnosis: Colitis Referrals: John Herrera FNP-BC [Primary Care Provider, Internal Medicine] - 1 Week Discharge Medications: New metronidazole 500 mg Tablet 500 mg PO Q8H Qty: 8 0RF Continued (DME) pen needle, diabetic [Pen Needle] 31 gauge x 5/16 needle See Rx Instructions .Route Qty: 100 1RF Rx Instructions: Use to inject insulin once a day carvedilol 25 mg tablet 25 mg PO BID Qty: 180 1RF Rx Instructions: must administer with a meal/food magnesium oxide 400 mg magnesium tablet 400 mg PO DAILY 30 Days Qty: 30 0RF lidocaine 5 % adhesive patch,medicated 1 patch topical DAILY PRN (Reason: Pain) levothyroxine 50 mcg tablet 50 mcg PO DAILY@0600 gabapentin 100 mg capsule 100 mg PO DAILY atorvastatin 10 mg tablet 10 mg PO BEDTIME gabapentin 100 mg capsule 200 mg PO BEDTIME bupropion HCl 100 mg tablet 100 mg PO BEDTIME Januvia 100 mg tablet 100 mg PO DAILY insulin glargine [Lantus Solostar U-100 Insulin] 100 unit/mL (3 mL) insulin pen 10 - 12 unit subcut BEDTIME bupropion HCl 100 mg tablet 200 mg PO DAILY loperamide 2 mg Tablet 2 mg PO QID PRN (Reason: Diarrhea) Discharge Orders: Discharge Order (Routine); Ordered 05/10/25 Ordered By: Uriel Kam Diet: Advance to usual diet Activity on Discharge: As tolerated Stand Alone Forms: Patient Portal Discharge page Print Language: Hungarian Care Plan Goals: recovery from colitis Health Concerns: colitis Plan of Treatment: Take Flagyl and recommend Drink Plenty of fluid Follow up with your Doctor in a week, call for appointment Assessment: see [email or web address]
--- NOTE | 2025-05-10 14:39 | MHC.CM.PN ---
IMM 05/10/2025 Patient is medically cleared to discharge. She is discharged to home selfcare. She will arrange for transportation home from a family member..
[2025-05-10 15:11] VITALS: BP 142/68; PULSE 66; RESP 16; TEMP 36.2; O2SAT 98
== END 2025-05-10 15:36 | disposition home or self-care (01) | DRG 394 ==
LOC: HO.ED 15:23 → HO.EDOVER 15:58 → HO.S3 23:58
PROVIDERS: Admitting Provider Internal Medicine; Emergency Provider Emergency Medicine; PCP Nurse Practitioner Family; Visit Provider Internal Medicine
DX: K55.9 Vascular disorder of intestine, unspecified (principal); D62 Acute posthemorrhagic anemia; E03.9 Hypothyroidism, unspecified; I10 Essential (primary) hypertension; E78.5 Hyperlipidemia, unspecified; G89.29 Other chronic pain; E11.40 Type 2 diabetes mellitus with diabetic neuropathy, unspecified; M48.061 Spinal stenosis, lumbar region without neurogenic claudication; Z88.0 Allergy status to penicillin; Z88.1 Allergy status to other antibiotic agents; R11.2 Nausea with vomiting, unspecified; T36.8X5A Adverse effect of other systemic antibiotics, initial encounter; Z87.891 Personal history of nicotine dependence; Z79.4 Long term (current) use of insulin; Z79.890 Hormone replacement therapy; Z79.899 Other long term (current) drug therapy
CPT/HCPCS: 36415; 74178; 80048; 80053; 80076; 81001; 82272; 82947; 83605; 83690; 83735; 85025; 85027; 86850; 86900; 86901; 87040; 87086; 87088; 87186; 93005; 99285; J1836; J2185; J2270; J2405; J3475; J7120; Q9967

== ENCOUNTER → 2025-05-05 10:12 | Outpatient (BNV) | payer MEDICARE, OTHER, SELFPAY | PROVIDERS: Admitting Provider Internal Medicine; Emergency Provider Emergency Medicine; PCP Nurse Practitioner Family; Visit Provider Internal Medicine Cardiovascular Disease | DX: R94.31 Abnormal electrocardiogram [ECG] [EKG] (principal); K92.2 Gastrointestinal hemorrhage, unspecified | CPT/HCPCS: 93010 ==

== ENCOUNTER → 2025-05-05 10:12 | Outpatient (BNV) | payer MEDICARE, OTHER, SELFPAY | PROVIDERS: Emergency Provider Emergency Medicine; Visit Provider Radiology Diagnostic Radiology | DX: K52.9 Noninfective gastroenteritis and colitis, unspecified (principal) | CPT/HCPCS: 74178 ==

== ENCOUNTER → 2025-05-05 15:18 | Outpatient (BNV) | payer MEDICARE, OTHER, SELFPAY | PROVIDERS: Admitting Provider Internal Medicine; Emergency Provider Emergency Medicine; PCP Nurse Practitioner Family; Visit Provider Internal Medicine | DX: K52.9 Noninfective gastroenteritis and colitis, unspecified (principal); I10 Essential (primary) hypertension | CPT/HCPCS: 99223; 99232 ==

== ENCOUNTER 2025-05-10 21:05 | Inpatient (IN) | payer MEDICARE, OTHER, SELFPAY ==
--- NOTE | ~2025-05-10 | CT_ITS ---
CLINICAL HISTORY: worsening colitis CT abdomen and pelvis with contrast Comparison: CT/SR - CT ABDOMEN PELVIS WITHOUT THEN WITH IV CONTRAST - 05/05/25 13:10 EDT Findings: The lung bases are clear. Gallbladder is surgically absent. No focal hepatic lesion identified. Pancreas is within normal limits. 9 mm probable splenic cyst is present. Adrenal glands are within normal limits. Kidneys enhance symmetrically and are non hydronephrotic. Renal cortical thinning noted bilaterally. There is mild wall thickening and adjacent inflammatory change surrounding the sigmoid colon. Fluid in the distal large bowel suggesting abnormal motility. A few more distal scattered sigmoid diverticula are present. Atherosclerotic vascular calcifications are present. Appendix not visualized. No acute fracture. IMPRESSION: Findings consistent with mild sigmoid colitis or inflammatory bowel disease. Mild interval improvement compared to 05/05/2025 exam. This document has been electronically signed by: Cedric Kaiser MD, PHD on 05/11/2025 03:00:41
[2025-05-10 21:16] VITALS: BP 160/72; BP 195/76; PULSE 69; PULSE 83; RESP 17; TEMP 36.2; O2SAT 96; O2SAT 99; BMI 34.2
[2025-05-10 22:24] LABS: Alanine Aminotransferase < 6 U/L (0-31); Albumin Level 2.9 g/dL (3.5-5.0); Alkaline Phosphatase 73 U/L (39-117); Anion Gap 15 (12-20); Aspartate Amino Transferase 21 U/L (5-31); Blood Urea Nitrogen 8 mg/dL (9-16); Calcium 8.6 mg/dL (8.4-10.2); Carbon Dioxide 20 mmol/L (22-29); Chloride 106 mmol/L (96-108); Creatinine Clr Calc Pharmacy 39.9; Estimated Glomerular Filt Rate 48; Lipase 31 U/L (8-78); Magnesium 1.9 mg/dL (1.6-2.6); Potassium 3.6 mmol/L (3.3-5.1); Sodium 137 mmol/L (135-145); Total Protein 5.7 g/dL (6.5-8.0)
[2025-05-10 23:08] LABS: MANUAL DIFF FLAG NO
[2025-05-10 23:10] LABS: Hematocrit 32.8 % (37.0-47.0); Hemoglobin 11.1 g/dl (12.0-16.0); Imm Gran Abs Auto 0.06 X10*3/uL (0.00-0.03); Imm Gran Pct Auto 0.7 % (0.0-0.4); Lymphocytes Absolute Auto 0.7 X10*3/uL (1.2-4.9); Mean Corpuscular HGB Conc 33.8 g/dl (31.0-35.0); Mean Corpuscular Hemoglobin 32.0 pg (27.0-33.0); Mean Corpuscular Volume 94.5 fL (80.0-98.0); NRBC Abs Auto 0.000 X10*3/uL (0.0-0.012); NRBC Pct Auto 0.0 /100WBC (0.0-0.2); Platelet Count 213 X10*3/uL (160-400); Red Blood Count 3.47 X10*6/uL (4.20-5.50); White Blood Count 8.4 X10*3/uL (4.8-10.8)
[2025-05-11] VITALS (8 sets, daily range): BP systolic 132–204; BP diastolic 53–95; PULSE 65–89; RESP 12–16; TEMP 36.8–37; O2SAT 97–99
--- NOTE | 2025-05-11 00:49 | ED.GENADULT ---
HPI - General Adult General Chief complaint: Nausea/Vomiting/Diarrhea Stated complaint: weakness in legs Time Seen by Provider: 05/11/25 00:29 Source: patient Limitations: no limitations History of Present Illness ED Provider: Ursula Solares PA-C HPI narrative: 79-year-old female with a history of obesity, insulin-dependent diabetes, hypertension, hyperlipidemia, breast cancer status post radiation and lumpectomy, chronic back pain, recent admission to the hospital for colitis with rectal bleeding, found to be acidotic at the time, who was just discharged from inpatient admission yesterday, presents with inability to tolerate oral intake. Patient states she was discharged yesterday. She states she was profoundly weak, that she collapsed while attempting to enter her home, her neighbor caught her and braced her fall. Patient did sustain superficial skin tears over the right anterior gautam. Associated nausea with dry heaving. Patient states she continues to have ongoing diarrhea. Patient states she was unable to take her antibiotic or her blood pressure medication at home secondary to her nausea and dry heaving. Related Data Home Medications ?Medication ?Instructions ?Recorded ?Confirmed atorvastatin 10 mg tablet 10 mg PO BEDTIME 04/14/25 05/05/25 gabapentin 100 mg capsule 100 mg PO DAILY 04/14/25 05/05/25 gabapentin 100 mg capsule 200 mg PO BEDTIME 04/14/25 05/05/25 levothyroxine 50 mcg tablet 50 mcg PO DAILY@0600 04/14/25 05/05/25 lidocaine 5 % topical patch 1 patch topical DAILY PRN Pain 04/14/25 05/05/25 bupropion HCl 100 mg tablet 100 mg PO BEDTIME 05/05/25 05/05/25 bupropion HCl 100 mg tablet 200 mg PO DAILY 05/05/25 05/05/25 insulin glargine 100 unit/mL (3 10 - 12 unit subcut BEDTIME 05/05/25 05/05/25 mL) subcutaneous pen (Lantus Solostar U-100 Insulin) loperamide 2 mg tablet 2 mg PO QID PRN Diarrhea 05/05/25 05/05/25 sitagliptin phosphate 100 mg 100 mg PO DAILY 05/05/25 05/05/25 tablet (Januvia) Previous Rx's ?Medication ?Instructions ?Recorded pen needle, diabetic 31 gauge x #100 ea 01/18/2502/04 (Pen Needle) carvedilol 25 mg tablet 25 mg PO BID #180 tabs 01/26/25 magnesium oxide 400 mg PO DAILY 30 days #30 tabs 04/21/25 metronidazole 500 mg tablet 500 mg PO Q8H #8 tabs 05/10/25 Allergies Allergy/AdvReac Type Severity Reaction Status Date / Time cephalexin (From Keflex) Allergy Severe Swelling Verified 05/10/25 21:17 ciprofloxacin (From Cipro) Allergy Severe eye Verified 05/10/25 21:17 swelling penicillin G Allergy Severe Angioedema Verified 05/10/25 21:17 Penicillins Allergy Severe ANGIOEDEMA Verified 05/10/25 21:17 doxycycline Allergy Intermediate Vomiting Verified 05/10/25 21:17 meloxicam Allergy Unknown Verified 05/10/25 21:17 NSAIDS (Non-Steroidal AdvReac Unknown Verified 05/10/25 21:17 Anti-Inflamma Sulfacet-R Allergy Severe Swelling Uncoded 05/10/25 21:17 Review of Systems Review of Systems: Yes all other systems are reviewed and are negative Constitutional: Constitutional: Reports fatigue, Denies fever(s), Reports malaise, Reports poor appetite and Reports weakness Cardiovascular: Cardiovascular: Denies chest pain and Denies dyspnea Respiratory: Respiratory: Denies dyspnea Gastrointestinal: Gastrointestinal: Reports GI cramping, Reports diarrhea, Reports nausea and Reports vomiting Neurologic: Reports weakness Endocrine: Endocrine: Reports fatigue PMFSH Past Medical History Attestation statement: The following information was validated with the patient. Medical History (Updated 05/11/25 @ 03:21 by NIXON Lowe) Colitis Elevated cholesterol Breast cancer Hx of radiation therapy Depression Spinal stenosis Degenerative disc disease, cervical Arthritis Back pain HTN (hypertension) Diabetes Disc degeneration, lumbar Lumbar radiculopathy Osteoarthritis Breast cancer, left Surgical History Hx of bilateral cataract extraction History of knee replacement History of carpal tunnel release of both wrists Hx of cholecystectomy Hx of appendectomy Hx of hysterectomy History of lumpectomy of left breast H/O colonoscopy History of total left knee replacement Social History Social History Household Members: None Housing: House Do you presently have visiting nurse or other home services: No Alcohol intake: current Alcohol intake frequency: 0-2 drinks per day Patient Tobacco Use Status: Former Tobacco user Tobacco use type: Cigarette Years Smoked: 50 years ago Smoked in Last 30 Days: No e-Cigarette/Vaping Use: Never Used Second Hand Smoke Exposure: No Substance Use Type: Marijuana Substance Use Frequency: Occasionally Advance Directives: Yes Advance Directives Information Provided: No Advance Directives on File: No Advance Directives Date on File: 05/05/25 Do you have a plan to hurt others: No Plan service: No Current occupational status: employed Current occupation: [employer] Current occupational exposures/hazards: No Cognitive needs: No Hearing needs: No Vision needs: Yes Physical Exam ED Vital Signs: Vital Signs - 24 hr 05/10/25 21:16 05/11/25 01:10 05/11/25 01:12 Temperature 97.1 F Pulse Rate 83 89 Respiratory Rate 17 Blood Pressure 195/76 H 204/82 H Pulse Oximetry 96 Oxygen Delivery Method Room Air 05/11/25 01:58 Temperature Pulse Rate Respiratory Rate Blood Pressure 148/68 H Pulse Oximetry Oxygen Delivery Method BMI result Body Mass Index 34.2 Const Other: Awake, Orientation/consciousness: patient oriented x3 HENMT Other: Dry oral mucosa Resp Effort & Inspection: normal respiratory effort Cardio Other: Normal peripheral perfusion Skin Other: Warm dry no rash Neuro General: patient oriented x3, no focal motor deficits and CN's II-XI intact bilaterally Extrem Other: 3 superficial skin tears right anterior gautam no longer bleeding Psych Other: Cooperative Medications Administered Discontinued Medications Generic Name Dose Route Start Last Admin Trade Name Freq PRN Reason Stop Dose Admin Metronidazole 500 mg in 100 mls @ 100 mls/hr 05/11/25 00:57 05/11/25 02:26 Flagyl IV 05/11/25 01:56 Infused ONCE ONE Infusion Iohexol 85 ml 05/11/25 02:23 05/11/25 02:23 Iohexol 350 Mg/Ml 100 Ml Infus..Btl IV 05/11/25 02:24 85 ml ONCE ONE Administration Labetalol HCl 10 mg 05/11/25 00:57 05/11/25 01:12 Labetalol Hcl 100 Mg/20 Ml Vial IVPUSH 05/11/25 00:58 10 mg ONCE ONE Administration Medical Decision Making Medical Decision Making MDM Narrative: 79-year-old female with a history of obesity, insulin-dependent diabetes, hypertension, hyperlipidemia, breast cancer status post radiation and lumpectomy, chronic back pain, recent admission to the hospital for colitis with rectal bleeding, found to be acidotic at the time, who was just discharged from inpatient admission yesterday, presents with inability to tolerate oral intake. Patient states she was discharged yesterday. She states she was profoundly weak, that she collapsed while attempting to enter her home, her neighbor caught her and braced her fall. Patient did sustain superficial skin tears over the right anterior gautam. Associated nausea with dry heaving. Patient states she continues to have ongoing diarrhea. Patient states she was unable to take her antibiotic or her blood pressure medication at home secondary to her nausea and dry heaving. Problem: Recent admission for colitis History: Per patient I have considered the following differential diagnoses: Deconditioning, failure to thrive, weakness Plan: Screening labs were obtained from triage, they are overall unremarkable. Sounds as if the patient is deconditioned from her inpatient admission. My concern is that if she can not tolerate oral intake, she can not complete her antibiotic therapy, furthermore she is hypertensive, she is unable to take her blood pressure medications. We will be ordering IV labetalol, IV Flagyl, which is the antibiotic that she was discharged home with. I am hoping to admit back to the hospitalist. I just spoke with the hospitalist, Dr. Marcelo, he is requesting repeating the CT scan, we will do so now. I have independently reviewed the following tests: Labs: No leukocytosis, not anemic, no electrolyte abnormality noted, a guaiac positive CT abdomen and pelvis:IMPRESSION: Findings consistent with mild sigmoid colitis or inflammatory bowel disease. Mild interval improvement compared to 05/05/2025 exam. Lab Data 05/10/25 23:03 05/10/25 22:05 Labs: Lab Results 05/10/25 05/10/25 05/11/25 Range/Units 22:05 23:03 01:30 WBC 8.4 (4.8-10.8) X10*3/uL RBC 3.47 L (4.20-5.50) X10*6/uL Hgb 11.1 L (12.0-16.0) g/dl Hct 32.8 L (37.0-47.0) % MCV 94.5 (80.0-98.0) fL MCH 32.0 (27.0-33.0) pg MCHC 33.8 (31.0-35.0) g/dl RDW 12.4 (11.0-16.0) % Plt Count 213 D (160-400) X10*3/uL MPV 10.6 (9.4-12.3) fL Immature Gran % (Auto) 0.7 H (0.0-0.4) % Neut % (Auto) 81.2 H (45-73) % Lymph % (Auto) 7.7 L (20-40) % Sterling % (Auto) 8.3 (2-11) % Eos % (Auto) 1.7 (0-4) % Baso % (Auto) 0.4 (0-2) % Lymph # (Auto) 0.7 L (1.2-4.9) X10*3/uL Sterling # (Auto) 0.7 (0.1-1.2) X10*3/uL Eos # (Auto) 0.1 (0.0-0.4) X10*3/uL Baso # (Auto) 0.0 (0.0-0.2) X10*3/uL Abs Immat Gran (auto) 0.06 H (0.00-0.03) X10*3/uL Absolute Neuts (auto) 6.8 (2.0-8.3) x10*3/uL Absolute Nucleated RBC 0.000 (0.0-0.012) X10*3/uL Nucleated RBC % (auto) 0.0 (0.0-0.2) /100WBC Sodium 137 (135-145) mmol/L Potassium 3.6 (3.3-5.1) mmol/L Chloride 106 (96-108) mmol/L Carbon Dioxide 20 L (22-29) mmol/L Anion Gap 15 (12-20) BUN 8 L (9-16) mg/dL Creatinine 1.10 (0.5-1.4) mg/dL Estim Creat Clear Calc 39.9 Estimated GFR 48 Random Glucose 97 (60-115) mg/dL Calcium 8.6 (8.4-10.2) mg/dL Magnesium 1.9 (1.6-2.6) mg/dL Total Bilirubin 0.4 (0.0-1.0) mg/dL Direct Bilirubin 0.2 (0.0-0.5) mg/dL AST 21 (5-31) U/L ALT < 6 (0-31) U/L Alkaline Phosphatase 73 (39-117) U/L Total Protein 5.7 L (6.5-8.0) g/dL Albumin 2.9 L (3.5-5.0) g/dL Lipase 31 (8-78) U/L Stool Occult Blood POSITIVE (NEGATIVE) Discharge Plan Discharge Clinical Impression: Colitis, Acute lower GI bleeding Patient Disposition: Admitted As Inpatient Print Language: Nepali
[2025-05-11] MEDS: metroNIDAZOLE/NS 500 MG/100 ML PIGGYBACK 100 MG IV ×3 (01:26→16:49)
[2025-05-11 01:49] LABS: OBS Int Ctl Valid YES; OBS1 POSITIVE (NEGATIVE)
[2025-05-11] MEDS: iohexoL 350 MG/ML 100 ML INFUS..BTL 85 ML IV (02:23)
--- NOTE | 2025-05-11 03:44 | PC.NURSE ---
Spoke with Veena ALICEA and no blood cultures needed at this time. Okay to give abx
--- NOTE | 2025-05-11 04:16 | PM.IMHP ---
History of Present Illness Date of Service: 05/11/25 Attending physician on admission: Gilda Loo Chief Complaint: weakness Pt is a 79 yo female with PMH IDDM, HTN, HLD, Breast Cancer in remission status post radiation and lumpectomy, Aortic stenosis, UTI, chronic back pain and gout presents to ED after calling 911 for profound weakness after being discharged home 05/10 for colitis. Patient stated she was not able to tolerate anything orally including food or fluids. Patient felt nauseous with dry heaves but denied any vomiting. Pt was not able to walk. On arrival from her previous discharge, patient's neighbor was assisting patient into the home and patient suddenly collapsed and was caught by her neighbor but incurred a skin tear to the right lower extremity. Pt was also complaining of dizziness and lightheadedness. Patient denied having any chest pain, shortness of breath at rest or with exertion or profound abdominal pain. Patient is presenting with feelings of being overwhelmed. Pt's record reviewed for admission and noted that UA from this past admission was positive for Klebsiella. Pt has multiple allergies and organism is susceptible to gentamicin, cipro, cephalosporins and ampicillin. Pt has issues with PCN, cephalosporins and Cipro. UA with reflex ordered. Work up in ED included CT ABD and Pelvis which notes mild improvement of colitis as pt has been on Flagyl and was discharged to continue Flagyl po. Pt received dose of IV flagyl in ED. Stool for occult again positive but H/H stable with no indication for transfusion. Pt does not have a leukocytosis, fever but has intermittent nausea but no vomiting and rare episodes of diarrhea. Pt does have known aortic stenosis but follows with PCP and has routine echo's done. This could contribute to dizziness. Last echo was 02/2025 and noted mild aortic stenosis. Mild systolic murmur noted on exam. Patient also has diabetes but denies issues with hypoglycemia. Glucose on arrival to the ED was 121 mg/dl. Patient had no issues with hypoglycemia this past admission. Pt being admitted for colitis, stool for occult positive, UTI Klebsiella, generalized weakness s/p discharge 05/10. Review of Systems Review of Systems: Pt denies chest pain, SOB at rest, SCHUSTER or visual changes. Pt did not fall at home prior to arrival but almost collapsed and was saved by her neighbor who was assisting her. Pt is reporting mild mid abdominal tenderness. Pt has not had any vomiting since discharge. Pt is having some urinary incontinence. Patient does have a wound on her right lower extremity from her episode at home on arrival. [facility] Medical History Colitis Elevated cholesterol Breast cancer Hx of radiation therapy Depression Spinal stenosis Degenerative disc disease, cervical Arthritis Back pain HTN (hypertension) Diabetes Disc degeneration, lumbar Lumbar radiculopathy Osteoarthritis Breast cancer, left Cognitive capacity: Alert and orientated x3, hard of hearing Functional capacity: uses cane/walker Patient : No Surgical History Hx of bilateral cataract extraction History of knee replacement History of carpal tunnel release of both wrists Hx of cholecystectomy Hx of appendectomy Hx of hysterectomy History of lumpectomy of left breast H/O colonoscopy History of total left knee replacement Social History Household Members: None Housing: House Do you presently have visiting nurse or other home services: No Alcohol intake: current Alcohol intake frequency: 0-2 drinks per day Patient Tobacco Use Status: Former Tobacco user Tobacco use type: Cigarette Years Smoked: 50 years ago Smoked in Last 30 Days: No e-Cigarette/Vaping Use: Never Used Second Hand Smoke Exposure: No Substance Use Type: Marijuana Substance Use Frequency: Occasionally Advance Directives: Yes Advance Directives Information Provided: No Advance Directives on File: No Advance Directives Date on File: 05/05/25 Do you have a plan to hurt others: No Plan Patient : No service: No Current occupational status: employed Current occupation: [employer] Current occupational exposures/hazards: No Cognitive needs: No Hearing needs: No Vision needs: Yes Ebola Risk: Travel/Contact With Anyone From Affected Area/s: No Has Patient Experienced Ebola Symptoms: No Meds Allergies Allergy/AdvReac Type Severity Reaction Status Date / Time cephalexin (From Keflex) Allergy Severe Swelling Verified 05/10/25 21:17 ciprofloxacin (From Cipro) Allergy Severe eye Verified 05/10/25 21:17 swelling penicillin G Allergy Severe Angioedema Verified 05/10/25 21:17 Penicillins Allergy Severe ANGIOEDEMA Verified 05/10/25 21:17 doxycycline Allergy Intermediate Vomiting Verified 05/10/25 21:17 meloxicam Allergy Unknown Verified 05/10/25 21:17 NSAIDS (Non-Steroidal AdvReac Unknown Verified 05/10/25 21:17 Anti-Inflamma Sulfacet-R Allergy Severe Swelling Uncoded 05/10/25 21:17 Active Medications: Current Medications Acetaminophen (Acetaminophen 325 Mg Tablet) 650 mg PO Q6H PRN PRN Reason: Pain, Mild 1-3,fever,headache Albuterol/Ipratropium (Albuterol/Iprat 2.5/0.5mg 3 Ml Ampul.Neb) 3 ml INHALE Q4H PRN PRN Reason: Shortness of Breath/Wheezing Calcium Carbonate (Calcium Carbonate 750 Mg Tab.Chew) 750 mg PO Q4H PRN PRN Reason: Heartburn Magnesium Hydroxide (Milk Of Magnesia 30 Ml Oral.Susp) 30 ml PO DAILY PRN PRN Reason: Constipation Melatonin (Melatonin 3 Mg Tablet) 6 mg PO BEDTIME PRN PRN Reason: Insomnia Ondansetron HCl (Ondansetron Hcl 4 Mg/2 Ml Vial) 4 mg IVPUSH Q8H PRN PRN Reason: Nausea and Vomiting Sodium Chloride (0.9 % Sodium Chloride Flush 3 Ml Syringe) [address] IV[address] [facility] Medications ?Medication ?Instructions ?Recorded ?Confirmed ?Last Taken ?Type atorvastatin 10 mg tablet 10 mg PO BEDTIME 04/14/25 05/05/25 05/04/25 History gabapentin 100 mg capsule 100 mg PO DAILY 04/14/25 05/05/25 05/05/25 History gabapentin 100 mg capsule 200 mg PO BEDTIME 04/14/25 05/05/25 05/04/25 History levothyroxine 50 mcg tablet 50 mcg PO DAILY@0600 04/14/25 05/05/25 05/05/25 History lidocaine 5 % topical patch 1 patch topical DAILY PRN Pain 04/14/25 05/05/25 Unknown History bupropion HCl 100 mg tablet 100 mg PO BEDTIME 05/05/25 05/05/25 05/04/25 History bupropion HCl 100 mg tablet 200 mg PO DAILY 05/05/25 05/05/25 05/05/25 History insulin glargine 100 unit/mL (3 10 - 12 unit subcut BEDTIME 05/05/25 05/05/25 05/04/25 History mL) subcutaneous pen (Lantus Solostar U-100 Insulin) loperamide 2 mg tablet 2 mg PO QID PRN Diarrhea 05/05/25 05/05/25 Unknown History sitagliptin phosphate 100 mg 100 mg PO DAILY 05/05/25 05/05/25 05/05/25 History tablet (Januvia) Physical Exam Vital Signs and Narrative: Vital Signs: Last Vital Signs Temp 97.1 F 05/10/25 21:16 Pulse 89 05/11/25 01:12 Resp 17 05/10/25 21:16 BP 148/68 H 05/11/25 01:58 Pulse Ox 96 05/10/25 21:16 O2 Del Method Room Air 05/10/25 21:16 BMI result Body Mass Index 34.2 Alert and orientated X3, able to give good history. Neuro: CN II-X11 intact, no deficits, visual acuity intact EYES: PERRLA, EOM intact ENT: hearing intact, no issues with swallowing, uvula midline, lips moist, nares patent no epistaxis Cardiac: S1 S2 RRR, systolic murmur, no JVD, no edema in Lower ext Pulmonary: lungs clear to auscultation B Abdominal: BS active in all 4 quadrants, no guarding, tenderness, rebounding MSK: strength 3/5 upper and lower extremities : no CVA tenderness no bladder distension Extremities: no edema in lower extremities, PT and DP pulses palpable +2, patient has a 2-1/2 inch skin tear right gautam with some bruising Psych: mood anxious almost tearful, judgement and insight good Results Labs 05/11/25 04:51 05/11/25 04:51 Labs: Laboratory Results - last 24 hr 05/10/25 05/10/25 05/11/25 22:05 23:03 01:30 MCV 94.5 MCH 32.0 MCHC 33.8 RDW 12.4 Plt Count 213 D MPV 10.6 Immature Gran % (Auto) 0.7 H Neut % (Auto) 81.2 H Lymph % (Auto) 7.7 L Jenkins % (Auto) 8.3 Eos % (Auto) 1.7 Baso % (Auto) 0.4 Lymph # (Auto) 0.7 L Jenkins # (Auto) 0.7 Eos # (Auto) 0.1 Baso # (Auto) 0.0 Abs Immat Gran (auto) 0.06 H Absolute Neuts (auto) 6.8 Absolute Nucleated RBC 0.000 Nucleated RBC % (auto) 0.0 Anion Gap 15 Estim Creat Clear Calc 39.9 Estimated GFR 48 Random Glucose 97 Calcium 8.6 Magnesium 1.9 Total Bilirubin 0.4 Direct Bilirubin 0.2 AST 21 ALT < 6 Alkaline Phosphatase 73 Total Protein 5.7 L Albumin 2.9 L Lipase 31 Stool Occult Blood POSITIVE ECG Prior ECG tracings: not available for review Imaging Radiologist's Impressions: CT ABD PELVIS IMPRESSION: Findings consistent with mild sigmoid colitis or inflammatory bowel disease. Mild interval improvement compared to 05/05/2025 exam Assessment and Plan (1) Colitis: Status: Acute (2) UTI (urinary tract infection): Qualifiers: Hematuria presence: without hematuria Urinary tract infection type: acute cystitis Qualified Code(s): N30.00 - Acute cystitis without hematuria Status: Acute Plan Pt is a 79 yo female with PMH IDDM, HTN, HLD, Breast Cancer in remission status post radiation and lumpectomy, Aortic stenosis, UTI, chronic back pain and gout presents to ED after calling 911 for profound weakness after being discharged home 05/10 for colitis. Patient stated she was not able to tolerate anything orally including food or fluids. Patient felt nauseous with dry heaves but denied any vomiting. Pt was not able to walk. On arrival from her previous discharge, patient's neighbor was assisting patient into the home and patient suddenly collapsed and was caught by her neighbor but incurred a skin tear to the right lower extremity. Pt was also complaining of dizziness and lightheadedness. Patient denied having any chest pain, shortness of breath at rest or with exertion or profound abdominal pain. Patient is presenting with feelings of being overwhelmed. Colitis Continue Flagyl 500 mgs IV q8h IV hydration GI reconsulted, follows with Dr. Mcintosh Last Colonoscopy per pt Positive stool for occult Likely secondary to colitis H/H currently stable Protonix ordered Monitor CBC daily UTI Urine Grew Klebsiella from UA 05/05/25 Pt has been having incontinence issues, frequency more so but no dysuria Bactrim was stopped this past admission due to ongoing N/V Gentamicin only other available tx based on allergies - renal fx stable UA will be repeated with reflex, please follow results and treat accordingly No leukocytosis or fever currently ID consulted after review with Attending Dr. Loo Generalized weakness s/p DC from hospital 05/10 PT evaluation ordered Pt erlineives she needs STR upon discharge, lives alone and is profoundly weak Fall prevention RLE skin tear Nonstick dressing with cleansing ordered daily If no improvement, consider wound care consult Aortic Stenosis Mild on most recent echo 02/2025 Follow up as an outpatient No near syncope or syncopal episodes IDDM SSI Lantus HS DIabetic diet Pt on HTN Continue Coreg Low Salt diet HLD Continue Statin Hypothyroidism Continue levothyroxine TSH, FT4 stable March 2025 DVT prophylaixs: held due to positive stool for occult MED REC PENDING FULL CODE Quality Stroke Does the patient have a stroke diagnosis?: No Reason for No Anti-thrombotic by Day Two: Contraindicated (stool positive for occult ) VTE Prior VTE?: No VTE Risk Level:: Medical - moderate - high VTE Device Contraindication: Procedure Contraindicated VTE Drug Contraindication: Treatment Not Indicated
[2025-05-11 04:56] LABS: MANUAL DIFF FLAG NO
[2025-05-11 04:58] LABS: Hematocrit 31.8 % (37.0-47.0); Hemoglobin 10.7 g/dl (12.0-16.0); Imm Gran Abs Auto 0.04 X10*3/uL (0.00-0.03); Imm Gran Pct Auto 0.5 % (0.0-0.4); Lymphocytes Absolute Auto 0.9 X10*3/uL (1.2-4.9); Mean Corpuscular HGB Conc 33.6 g/dl (31.0-35.0); Mean Corpuscular Hemoglobin 31.8 pg (27.0-33.0); Mean Corpuscular Volume 94.6 fL (80.0-98.0); NRBC Abs Auto 0.000 X10*3/uL (0.0-0.012); NRBC Pct Auto 0.0 /100WBC (0.0-0.2); Platelet Count 213 X10*3/uL (160-400); Red Blood Count 3.36 X10*6/uL (4.20-5.50); White Blood Count 7.5 X10*3/uL (4.8-10.8)
[2025-05-11 05:18] LABS: Alanine Aminotransferase < 6 U/L (0-31); Albumin Level 3.1 g/dL (3.5-5.0); Alkaline Phosphatase 71 U/L (39-117); Anion Gap 15 (12-20); Aspartate Amino Transferase 18 U/L (5-31); Blood Urea Nitrogen 8 mg/dL (9-16); Calcium 8.7 mg/dL (8.4-10.2); Carbon Dioxide 24 mmol/L (22-29); Chloride 103 mmol/L (96-108); Creatinine Clr Calc Pharmacy 41.4; Estimated Glomerular Filt Rate 50; Potassium 3.7 mmol/L (3.3-5.1); Sodium 138 mmol/L (135-145); Total Protein 5.6 g/dL (6.5-8.0)
--- NOTE | 2025-05-11 07:56 | PHA.MEDREC ---
Pharmacy Consult ? Medication Reconciliation Pharmacy has completed the medication reconciliation. PT was just here yesterday, says her meds are the same. Double checked with pharmacy claims and medical record.
[2025-05-11] MEDS: 0.9 % Sodium Chloride Flush 3 ML SYRINGE IVFLUSH ×2 (08:25→15:55)
--- NOTE | 2025-05-11 10:06 | MHC.CM.PN ---
Attempted to meet with patient in regards to discharge planning. Patient currently sleeping. No family present. Will attempt to meet again. Continue to monitor for d/c needs.
--- NOTE | 2025-05-11 10:36 | PM.EVENT ---
Event Note Date of Service: 05/11/25 Event Note: pt seen/examined, was discharge yesterday after treatment for colitis, thought to be ischmeic in nature but did receive Abx, returned just hours later claiming felt weak, nausea. and pain. Repeat CT scan show improvment in colitis. WBC down to normal. Exam is bening. A/P per H and P from this morning and should obtain PT eval for deconditioning. Time Spent With Patient Time: Total time managing care of this patient today ____ minutes.
--- NOTE | 2025-05-11 10:54 | PC.NURSE ---
Pt resting comfortably in bed, alert and oriented. Denies pain but reports having discomfort in belly with some nausea, and says she is always nauseous. No other complaints or episodes of diarrhea reported. NSR on tele. VSS. Breathing unlabored, skin p/w/d. Medicated as charted.
--- NOTE | 2025-05-11 12:12 | PC.NURSE ---
Addendum entered by Nani Turner RN 05/11/25 12:12: Pt is a 79 yo female with PMH IDDM, HTN, HLD, Breast Cancer in remission status post radiation and lumpectomy, Aortic stenosis, UTI, chronic back pain and gout presents to ED after calling 911 for profound weakness after being discharged home 05/10 for colitis. Patient stated she was not able to tolerate anything orally including food or fluids. Patient felt nauseous with dry heaves but denied any vomiting. Pt was not able to walk. On arrival from her previous discharge, patient's neighbor was assisting patient into the home and patient suddenly collapsed and was caught by her neighbor but incurred a skin tear to the right lower extremity. Pt was also complaining of dizziness and lightheadedness. PWork up in ED included CT ABD and Pelvis which notes mild improvement of colitis as pt has been on Flagyl and was discharged to continue Flagyl po. Pt received dose of IV flagyl in ED. Stool for occult again positive but H/H stable with no indication for transfusion. Pt being admitted for colitis, stool for occult positive, UTI Klebsiella, generalized weakness s/p discharge 05/10. Patient alert and oriented. Continues to c/o weakness. Respirations even and non-labored. Abdomen soft, non-tender with positive bowel sounds. Denies N/V. Purewick in placed. Positive pedal pulses with trace LE noted. Dressing intact to right LE for skin tear. Original Note: Medical History Colitis Elevated cholesterol Breast cancer Hx of radiation therapy Depression Spinal stenosis Degenerative disc disease, cervical Arthritis Back pain HTN (hypertension) Diabetes Disc degeneration, lumbar Lumbar radiculopathy Osteoarthritis Breast cancer, left
--- NOTE | 2025-05-11 16:02 | P.CDIM_ITS ---
PROVIDER RESPONSE TEXT: To clarify, the appropriate diagnosis supported by the clinical indicators: Acute Ischemic colitis QUERY TEXT: PHYSICIAN'S DOCUMENTATION REQUEST Date of Query: 05/11/2025 11:41 AM EDT Patient Name: Kayleen Wilson Admit Date: 05/11/2025 Dear Uriel Kam MD, A review of the medical record indicates additional documentation may be needed. Please review below and update the documentation accordingly. Clinical Indicators: Progress note 05/10/25 - Colitis Continue Flagyl 500 mgs IV q8h IV hydration Event note 05/11/25 - Was discharged yesterday after treatment for colitis, thought to be ischemic in nature. Did receive Abx, returned later weak, nausea and pain. Repeat CT scan show improvement in Colitis. Clarify which of the following accurately represents the acuity of the Colitis: Possible options might include: Acute Ischemic colitis Chronic ischemic colitis Other specifics to the Colitis Other (explain) Clinically unable to determine (explain) Thank you, Manju Corrales, CCS, CDIS Use of terms such as suspected, likely, concern for, or probable (associated with a specific diagnosis that is being evaluated, monitored, or treated as if it exists) are acceptable and can be coded in the inpatient setting, when documented at the time of discharge. Please use your independent medical judgment in providing your response. THIS QUERY IS PART OF THE PERMANENT MEDICAL RECORD
--- NOTE | 2025-05-11 17:20 | MHC.EDTECH ---
Pt reported feeling damp from the purewick. Pt cleaned, and barrier cream applied to irritated skin in evelyn area. New purewick and brief applied.
[2025-05-11 21:27] LABS: Glucose, Whole Blood 131 mg/dL (60-115)
--- NOTE | 2025-05-11 21:59 | PC.NURSE ---
Dr. Eze duke'd to give pt carvedilol with diastolic at 53.
--- NOTE | 2025-05-11 23:37 | P.CNID_ITS ---
History of Present Illness Data of Consult Service Date: 05/11/25 Requesting physician: Uriel Kam Primary Care Provider: John Herrera COMB TENDER- HPI Reason for consult: weakness,GI bleed She presents with weakness and almost falling trying to get in house after hospital discharge She has no fever or chills. She was discharged due to GI bleed. Review of Systems 2 Review of Systems: Yes all other systems are reviewed and are negative PMFSH Past Medical History Medical History Colitis Elevated cholesterol Breast cancer Hx of radiation therapy Depression Spinal stenosis Degenerative disc disease, cervical Arthritis Back pain HTN (hypertension) Diabetes Disc degeneration, lumbar Lumbar radiculopathy Osteoarthritis Breast cancer, left Family History Family history: reviewed and not pertinent Surgical History Surgical History Hx of bilateral cataract extraction History of knee replacement History of carpal tunnel release of both wrists Hx of cholecystectomy Hx of appendectomy Hx of hysterectomy History of lumpectomy of left breast H/O colonoscopy History of total left knee replacement Social History Social History Household Members: None Housing: House Do you presently have visiting nurse or other home services: No Alcohol intake: current Alcohol intake frequency: 0-2 drinks per day Patient Tobacco Use Status: Former Tobacco user Tobacco use type: Cigarette Years Smoked: 50 years ago Smoked in Last 30 Days: No e-Cigarette/Vaping Use: Never Used Second Hand Smoke Exposure: No Substance Use Type: Marijuana Substance Use Frequency: Occasionally Advance Directives: Yes Advance Directives Information Provided: No Advance Directives on File: No Advance Directives Date on File: 05/05/25 Do you have a plan to hurt others: No Plan Patient : No service: No Current occupational status: employed Current occupation: [employer] Current occupational exposures/hazards: No Cognitive needs: No Hearing needs: No Vision needs: Yes Travel History Ebola Risk: Travel/Contact With Anyone From Affected Area/s: No Has Patient Experienced Ebola Symptoms: No Meds Allergies Allergy/AdvReac Type Severity Reaction Status Date / Time cephalexin (From Keflex) Allergy Severe Swelling Verified 05/10/25 21:17 ciprofloxacin (From Cipro) Allergy Severe eye Verified 05/10/25 21:17 swelling penicillin G Allergy Severe Angioedema Verified 05/10/25 21:17 Penicillins Allergy Severe ANGIOEDEMA Verified 05/10/25 21:17 doxycycline Allergy Intermediate Vomiting Verified 05/10/25 21:17 meloxicam Allergy Unknown Verified 05/10/25 21:17 NSAIDS (Non-Steroidal AdvReac Unknown Verified 05/10/25 21:17 Anti-Inflamma Sulfacet-R Allergy Severe Swelling Uncoded 05/10/25 21:17 Active Medications: Current Medications Acetaminophen (Acetaminophen 325 Mg Tablet) 650 mg PO Q6H PRN PRN Reason: Pain, Mild 1-3,fever,headache Albuterol/Ipratropium (Albuterol/Iprat 2.5/0.5mg 3 Ml Ampul.Neb) 3 ml INHALE Q4H PRN PRN Reason: Shortness of Breath/Wheezing Atorvastatin Calcium (Atorvastatin Calcium 10 Mg Tablet) 10 mg PO BEDTIME KIMBERLY Last Admin: 05/11/25 21:48 Dose: 10 mg Bupropion HCl (Bupropion Hcl 100 Mg Tablet) 100 mg PO BEDTIME KIMBERLY Last Admin: 05/11/25 21:48 Dose: 100 mg Bupropion HCl (Bupropion Hcl 100 Mg Tablet) 200 mg PO DAILY [facility] Calcium Carbonate (Calcium Carbonate 750 Mg Tab.Chew) 750 mg PO Q4H PRN PRN Reason: Heartburn Carvedilol (Carvedilol 25 Mg Tablet) 25 mg PO BID KIMBERLY; Protocol Last Admin: 05/11/25 21:49 Dose: 25 mg Dextrose (Dextrose 50 % 25 Gm/50 Ml Syringe) 25 gm IVPUSH Q15M PRN; Protocol PRN Reason: per Hypoglycemia Standing Ord. Gabapentin (Gabapentin 100 Mg Capsule) 100 mg PO DAILY KIMBERLY Gabapentin (Gabapentin 100 Mg Capsule) 200 mg PO BEDTIME KIMBERLY Last Admin: 05/11/25 21:48 Dose: 200 mg Glucose (Glucose Gel 15 Gm Gel..Gram.) 15 gm PO Q15M PRN; Protocol PRN Reason: per Hypoglycemia Standing Ord. Metronidazole (Flagyl) 500 mg in 100 mls @ 100 mls/hr IV Q8H [facility] Last Infusion: 05/11/25 21:36 Dose: Infused Insulin Human Lispro (Insulin Lispro 100 Unit/Ml 3 Ml Vial) 0 unit SUBCUT QIDACHS [facility]; Protocol Last Admin: 05/11/25 21:37 Dose: Not Given Levothyroxine Sodium (Levothyroxine Sodium 50 Mcg Tablet) 50 mcg PO DAILY@0600 [facility] Magnesium Hydroxide (Milk Of Magnesia 30 Ml Oral.Susp) 30 ml PO DAILY PRN PRN Reason: Constipation Magnesium Oxide (Magnesium Oxide 400 Mg Tablet) 400 mg PO DAILY [facility] Melatonin (Melatonin 3 Mg Tablet) 6 mg PO BEDTIME PRN PRN Reason: Insomnia Last Admin: 05/11/25 20:38 Dose: 6 mg Ondansetron HCl (Ondansetron Hcl 4 Mg/2 Ml Vial) 4 mg IVPUSH Q8H PRN PRN Reason: Nausea and Vomiting Pantoprazole Sodium (Pantoprazole Sodium 40 Mg/10 Ml Vial) 40 mg IVPUSH DAILY@0630 [facility] Last Admin: 05/11/25 06:44 Dose: 40 mg Sodium Chloride (0.9 % Sodium Chloride Flush 3 Ml Syringe) 3 ml IVFLUSH QSHIFT [facility] Last Admin: 05/11/25 15:55 Dose: 3 ml Home Medications ?Medication ?Instructions ?Recorded ?Confirmed ?Last Taken ?Type atorvastatin 10 mg tablet 10 mg PO BEDTIME 04/14/2505/10/25 09:00 History gabapentin 100 mg capsule 100 mg PO DAILY 04/14/2505/10/25 09:00 History gabapentin 100 mg capsule 200 mg PO BEDTIME 04/14/25 0 05/11/25 05/10/25 09:00 History levothyroxine 50 mcg tablet 50 mcg PO DAILY@0600 04/1405/11/25 05/10/25 09:00 History lidocaine 5 % topical patch 1 patch topical DAILY PRN Pain 04/14/25 05/11/25 05/10/25 09:00 History bupropion HCl 100 mg tablet 100 mg PO BEDTIME 05/05/25 05/11/25 05/10/25 09:00 History bupropion HCl 100 mg tablet 200 mg PO DAILY 05/05/25 0 05/11/25 05/10/25 09:00 History insulin glargine 100 unit/mL (3 10 - 12 unit subcut BE DTIME 05/05/25 05/11/25 05/10/25 09:00 History mL) subcutaneous pen (Lantus Solostar U-100 Insulin) loperamide 2 mg tablet 2 mg PO QID PRN Diarrhea 05/11/25 05/10/25 09:00 History sitagliptin phosphate 100 mg 100 mg PO DAILY 05/05/25 05/11/25 05/10/25 09:00 History tablet (Januvia) Physical Exam 2 Vital Signs: Vital Signs: Last Vital Signs Temp 98.6 F 05/11/25 20:40 Pulse 72 05/11/25 21:49 Resp 16 05/11/25 20:40 BP 165/53 H 05/11/25 21:49 Pulse Ox 98 05/11/25 20:40 O2 Del Method Room Air 05/11/25 20:40 BMI result Body Mass Index 34.2 Const: General: cooperative HEENT: Head: Yes normal to inspection Face and sinus: Yes normal facial exam Mouth: Normal oral and palatal mucosa present Teeth and gingiva: d entition normal Eyes: General: appearance normal, both eyes and all related structures P upils: Equal, round and reactive pupils present Resp: Effort & Inspection: normal respiratory effort Cardio: Rate: regular rate Rhythm: regular rhythm GI: Palpation (GI): Soft to palpation and nontender : General: Yes no CVA tenderness Back/Spine/Pelvis: Back: no CVA tenderness Skin: General skin exam: no rashes or lesions noted Neuro: General: moves all extremities Cranial nerves: Yes Equal, round and reactive pupils present Extrem: General: Yes normal to inspection Psych: Appearance: grossly normal Results Labs 05/11/25 04:51 05/11/25 04:51 Labs: Short CBC 05/11/25 Range/Units 04:51 WBC 7.5 (4.8-10.8) X10*3/uL Hgb 10.7 L (12.0-16.0) g/dl Hct 31.8 L (37.0-47.0) % Plt Count 213 (160-400) X10*3/uL BMP 05/11/25 04:51 Sodium 138 Potassium 3.7 Chloride 103 Carbon Dioxide 24 BUN 8 L Creatinine 1.06 Calcium 8.7 Liver Function 05/11/25 Range/Units 04:51 Total Bilirubin 0.4 (0.0-1.0) mg/dL AST 18 (5-31) U/L ALT < 6 (0-31) U/L Alkaline Phosphatase 71 (39-117) U/L Albumin 3.1 L (3.5-5.0) g/dL Assessment and Plan (1) Diarrhea: Status: Acute Plan Symptoms resolving ?polyp or viral syndrome. No indication for antibiotics at this time. Supportive care,follow with GI
[2025-05-12] VITALS (8 sets, daily range): BP systolic 140–190; BP diastolic 57–86; PULSE 63–70; RESP 13–18; TEMP 36.2–37.1; O2SAT 96–98
[2025-05-12] MEDS: 0.9 % Sodium Chloride Flush 3 ML SYRINGE IVFLUSH ×4 (00:27→20:56)
[2025-05-12 05:14] LABS: Appearance Urine Clear; Glucose Urine UA Negative (Negative); PH 7.5 (5.0-9.0); Specific Gravity - Urine 1.010 (1.005-1.025); UMIC TRIGGER UA YES
--- NOTE | 2025-05-12 06:28 | PC.NURSE ---
notified provider of pt BP. no new orders at this time
[2025-05-12 07:31] LABS: Glucose, Whole Blood 106 mg/dL (60-115)
--- NOTE | 2025-05-12 07:41 | PC.NURSE ---
Pt is a 79 yo female with PMH IDDM, HTN, HLD, Breast Cancer in remission status post radiation and lumpectomy, Aortic stenosis, UTI, chronic back pain and gout presents to ED after calling 911 for profound weakness after being discharged home 05/10 for colitis. Patient stated she was not able to tolerate anything orally including food or fluids. Patient felt nauseous with dry heaves but denied any vomiting. Pt was not able to walk. On arrival from her previous discharge, patient's neighbor was assisting patient into the home and patient suddenly collapsed and was caught by her neighbor but incurred a skin tear to the right lower extremity. Pt was also complaining of dizziness and lightheadedness. CT ABD and Pelvis which notes mild improvement of colitis as pt has been on Flagyl and was discharged to continue Flagyl po. Stool for occult again positive but H/H stable with no indication for transfusion. Pt being admitted for colitis, stool for occult positive, UTI Klebsiella, generalized weakness s/p discharge 05/10. Patient alert and oriented. Continues to c/o weakness. Respirations even and non-labored. Abdomen soft, non-tender with positive bowel sounds. Denies N/V. Continues with episodes of diarrhea which sl bloody. Purewick patent and intact, draining yellow urine. Positive pedal pulses with trace LE noted. Dressing intact to right LE for skin tear. Original Note: Medical History Colitis Elevated cholesterol Breast cancer Hx of radiation therapy Depression Spinal stenosis Degenerative disc disease, cervical Arthritis Back pain HTN (hypertension) Diabetes Disc degeneration, lumbar Lumbar radiculopathy Osteoarthritis Breast cancer, left
--- NOTE | 2025-05-12 09:04 | MHC.CM.PN ---
Addendum entered by Shonna Gonzalez 05/12/25 13:49: Patient has been accepted at [facility], once Patient is medically cleared for dc. CM will continue to follow. Original Note: CM met with Patient at bedside, in ED Overflow, and addressed IMM with her, providing Patient with the original and a copy will be placed on the chart. CM assisted Patient with the completion of a new HCP, naming her Sister/Kristel as her Primary Agent and her Son/Kurt as her Alternate Agent. PT is recommending STR; [facility], [facility] second and [facility] third. CM has initiated and will follow for dc planning. PCP is Dr. John Herrera and Patient will require BLS transport to [facility]. Patient's Son lives at Patient's listed address and she now lives in an apartment @ [address] [place] [address] in [place], first floor. Patient lives alone and uses a cane to assist with mobility.
[2025-05-12 12:09] LABS: Glucose, Whole Blood 129 mg/dL (60-115)
[2025-05-12 16:21] LABS: Glucose, Whole Blood 121 mg/dL (60-115)
--- NOTE | 2025-05-12 17:50 | HO.PM.IMPN ---
Subjective Subjective Date of Service: 05/12/25 Interval History: nausea/diarrhae Review of Systems her symptoms simialr ,po intake poor generalised weak Review of Systems: Yes all other systems are reviewed and are negative Physical Exam Exam: Exam: Appearance: Alert.? Oriented X3.? cvs: rrr, [id number]. res: clear to auscultation ,no rhonchii or wheezing abd: no rebound or guarding ,nt, bs present. ext pulses present , no cyanosis. neuro: axo3 , nonfocal. Vital Signs: Vital Signs: Last Vital Signs Temp 97.2 F 05/12/25 15:14 Pulse 69 05/12/25 15:14 Resp 18 05/12/25 15:14 BP 146/68 H 05/12/25 15:14 Pulse Ox 98 05/12/25 15:14 O2 Del Method Room Air 05/12/25 15:14 BMI result Body Mass Index 34.2 Objective Data Active Medications Acetaminophen (Acetaminophen 325 Mg Tablet) 650 mg PO Q6H PRN PRN Reason: Pain, Mild 1-3,fever,headache Albuterol/Ipratropium (Albuterol/Iprat 2.5/0.5mg 3 Ml Ampul.Neb) 3 ml INHALE Q4H PRN PRN Reason: Shortness of Breath/Wheezing Atorvastatin Calcium (Atorvastatin Calcium 10 Mg Tablet) 10 mg PO BEDTIME [facility] Last Admin: 05/11/25 21:48 Dose: 10 mg Documented By: MONTEANTONIETTA Bupropion HCl (Bupropion Hcl 100 Mg Tablet) 100 mg PO BEDTIME [facility] Last Admin: 05/11/25 21:48 Dose: 100 mg Documented By: MONTEIR Bupropion HCl (Bupropion Hcl 100 Mg Tablet) 200 mg PO DAILY [facility] Last Admin: 05/12/25 13:17 Dose: 200 mg Documented By: KODYRPOFE Calcium Carbonate (Calcium Carbonate 750 Mg Tab.Chew) 750 mg PO Q4H PRN PRN Reason: Heartburn Carvedilol (Carvedilol 25 Mg Tablet) 25 mg PO BID [facility]; Protocol Last Admin: 05/12/25 08:28 Dose: 25 mg Documented By: NANCY Dextrose (Dextrose 50 % 25 Gm/50 Ml Syringe) 25 gm IVPUSH Q15M PRN; Protocol PRN Reason: per Hypoglycemia Standing Ord. Gabapentin (Gabapentin 100 Mg Capsule) 100 mg PO DAILY [facility] Last Admin: 05/12/25 08:28 Dose: 100 mg Documented By: NANCY Gabapentin (Gabapentin 100 Mg Capsule) 200 mg PO BEDTIME [facility] Last Admin: 05/11/25 21:48 Dose: 200 mg Documented By: RAJINDER Glucose (Glucose Gel 15 Gm Gel..Gram.) 15 gm PO Q15M PRN; Protocol PRN Reason: per Hypoglycemia Standing Ord. Insulin Glargine (Insulin Glargine,Hum.Rec.Anlog 100 Unit/Ml 10 Ml Vial) 5 unit SUBCUT BEDTIME [facility] Insulin Human Lispro (Insulin Lispro 100 Unit/Ml 3 Ml Vial) 0 unit SUBCUT QIDACHS [facility]; Protocol Last Admin: 05/12/25 16:05 Dose: Not Given Documented By: NEIL Non-Admin Reason: No Insulin Coverage Comments: POC 121 Levothyroxine Sodium (Levothyroxine Sodium 50 Mcg Tablet) 50 mcg PO DAILY@0600 [facility] Last Admin: 05/12/25 06:33 Dose: 50 mcg Documented By: RAJINDER Lidocaine (Lidocaine 4 % Patch Adh..Patch) 1 patch TRANSDERMA DAILY PRN PRN Reason: Pain Magnesium Hydroxide (Milk Of Magnesia 30 Ml Oral.Susp) 30 ml PO DAILY PRN PRN Reason: Constipation Magnesium Oxide (Magnesium Oxide 400 Mg Tablet) 400 mg PO DAILY [facility] Last Admin: 05/12/25 13:17 Dose: 400 mg Documented By: NANCY Melatonin (Melatonin 3 Mg Tablet) 6 mg PO BEDTIME PRN PRN Reason: Insomnia Last Admin: 05/11/25 20:38 Dose: 6 mg Documented By: RAJINDER Ondansetron HCl (Ondansetron Hcl 4 Mg/2 Ml Vial) 4 mg IVPUSH Q8H PRN PRN Reason: Nausea and Vomiting Pantoprazole Sodium (Pantoprazole Sodium 40 Mg/10 Ml Vial) 40 mg IVPUSH DAILY@0630 [facility] Last Admin: 05/12/25 06:34 Dose: 40 mg Documented By: RAJINDER Sodium Chloride (0.9 % Sodium Chloride Flush 3 Ml Syringe) 3 ml IVFLUSH QSHIFT [facility] Last Admin: 05/12/25 16:06 Dose: 3 ml Documented By: NEIL Labs 05/11/25 04:51 05/11/25 04:51 Labs: Laboratory Results - last 24 hr 05/11/25 05/12/25 05/12/25 21:22 04:55 07:25 POC Glucose 131 H 106 Urine Color Yellow Urine Appearance Clear Urine pH 7.5 Ur Specific Hart 1.010 Urine Protein Trace Urine Glucose (UA) Negative Urine Ketones Negative Urine Blood Small (1+) H Urine Nitrite Negative Ur Leukocyte Esterase Moderate (2+) H Urine RBC 3-5 H Urine WBC 0-5 Ur Squamous Epith Cells 0-2 Urine Bacteria None Seen Hyaline Casts 0-2 Urine Yeast Present 05/12/25 05/12/25 12:05 16:05 POC Glucose 129 H 121 H Urine Color Urine Appearance Urine pH Ur Specific Hart Urine Protein Urine Glucose (UA) Urine Ketones Urine Blood Urine Nitrite Ur Leukocyte Esterase Urine RBC Urine WBC Ur Squamous Epith Cells Urine Bacteria Hyaline Casts Urine Yeast Assessment and Plan (1) Nausea: Status: Acute (2) Common bile duct dilation: Status: Acute Plan 79 yo female with PMH IDDM, HTN, HLD, Breast Cancer in remission status post radiation and lumpectomy, Aortic stenosis, UTI, chronic back pain and gout presents to ED after calling 911 for profound weakness after being discharged home 05/10 for colitis. Patient stated she was not able to tolerate anything orally including food or fluids. Patient felt nauseous with dry heaves but denied any vomiting. Pt was not able to walk. On arrival from her previous discharge, patient's neighbor was assisting patient into the home and patient suddenly collapsed and was caught by her neighbor but incurred a skin tear to the right lower extremity. Pt was also complaining of dizziness and lightheadedness. Patient denied having any chest pain, shortness of breath at rest or with exertion or profound abdominal pain. Patient is presenting with feelings of being overwhelmed. Colitis Continue Flagyl 500 mgs IV q8h IV hydration GI reconsulted, follows with Dr. Mcintosh Last Colonoscopy per pt 04/14 Positive stool for occult Likely secondary to colitis H/H currently stable Protonix ordered Monitor CBC daily ? UTI Urine Grew Klebsiella from UA 05/05/25 Pt has been having incontinence issues, frequency more so but no dysuria Bactrim was stopped this past admission due to ongoing N/V Gentamicin only other available tx based on allergies - renal fx stable UA will be repeated with reflex, please follow results and treat accordingly No leukocytosis or fever currently ID consulted( has multiple antibiotics allergies). Generalized weakness s/p DC from hospital 05/10 PT evaluation ordered Pt beleives she needs STR upon discharge, lives alone and is profoundly weak Fall prevention RLE skin tear Nonstick dressing with cleansing ordered daily If no improvement, consider wound care consult Aortic Stenosis Mild on most recent echo 02/2025 Follow up as an outpatient No near syncope or syncopal episodes IDDM : fs with sliding scale coverage . adjusted lantus 5 units HTN Continue Coreg Low Salt diet HLD Continue Statin Hypothyroidism Continue levothyroxine TSH, FT4 stable . DVT prophylaixs: held due to positive stool for occult ongoing need: n/v /diarrhae, ? uti-id eval ,symptoms improvement , str . Quality Stroke Does the patient have a stroke diagnosis?: No Reason for No Anti-thrombotic by Day Two: Contraindicated (stool positive for occult ) VTE Prior VTE?: No VTE Risk Level:: Medical - moderate - high VTE Device Contraindication: Procedure Contraindicated VTE Drug Contraindication: Treatment Not Indicated
[2025-05-12 20:37] LABS: Glucose, Whole Blood 166 mg/dL (60-115)
[2025-05-12] MEDS: Insulin Glargine,Hum.rec.anlog 100 UNIT/ML 10 ML VIAL SUBCUT (20:49)
--- NOTE | 2025-05-12 22:30 | PC.NURSE ---
Pt had elevated BP twice, 184/76 & 190/86, see worklist. Pt denied any chest pain/SOB/discomfort during the times her BP was checked. MD Loo was notified of the elevated BP. This RN informed MD Loo that the pt was due for her [place] Carvedilol and will recheck BP in 1 hour after administration. Pt was given her [place] Carvedilol with good effect, see MAR. Pt's BP went down to 140/64. MD Loo was updated with the new BP. Will continue to monitor pt's BP.
[2025-05-13 03:14] VITALS: BP 138/72; PULSE 67; RESP 18; TEMP 36.2; O2SAT 100
[2025-05-13 06:57] VITALS: BP 148/66; PULSE 73; RESP 16; TEMP 36.4; O2SAT 98
[2025-05-13 07:17] LABS: Glucose, Whole Blood 133 mg/dL (60-115)
[2025-05-13] MEDS: 0.9 % Sodium Chloride Flush 3 ML SYRINGE IVFLUSH (09:29)
[2025-05-13 09:30] VITALS: BP 148/66; PULSE 73
--- NOTE | 2025-05-13 11:20 | HO.SKINPHOTO ---
Location: Left lower extremity Category: Skin tear Stage: Length: Width: Depth: cm Skin tear POZulma pt sustained an almost fall outside her front door when her neighbor was able to brace the fall and lower her to the ground. Wound cleansed with NS, xeroform, non-adherent gauze, and kerlix wrap applied per Dr. Romero.
[2025-05-13 11:28] LABS: Glucose, Whole Blood 140 mg/dL (60-115)
--- NOTE | 2025-05-13 13:52 | PM.DS ---
DS: Providers Provider Date of Service: 05/13/25 Date of admission: 05/11/25 03:22 Date of discharge: 05/13/25 Primary care physician: COLLEEN Welch- Consults: 05/11/25 04:50 Consult to Gastroenterology Routine Consulting Provider: Taiwo Mcintosh Reason for consultation: readmission colitis positive occult Has provider been notified: No 05/11/25 05:36 Consult to Infectious Diseases Routine Consulting Provider: [facility] Reason for consultation: Previous UTI, remains sym with freq, also colitis readmitted multiple aller Has provider been notified: No Attending physician on discharge: Brown Romero Discharging clinician: Brown Romero DS: Diagnosis Discharge Diagnosis (1) Nausea: Status: Acute (2) Common bile duct dilation: Status: Acute DS: Summary Hospital Course Hospital Course: HPI:79 yo female with PMH IDDM, HTN, HLD, Breast Cancer in remission status post radiation and lumpectomy, Aortic stenosis, UTI, chronic back pain and gout presents to ED after calling 911 for profound weakness after being discharged home 05/10 for colitis. Patient stated she was not able to tolerate anything orally including food or fluids. Patient felt nauseous with dry heaves but denied any vomiting. Pt was not able to walk. On arrival from her previous discharge, patient's neighbor was assisting patient into the home and patient suddenly collapsed and was caught by her neighbor but incurred a skin tear to the right lower extremity. Pt was also complaining of dizziness and lightheadedness. Patient denied having any chest pain, shortness of breath at rest or with exertion or profound abdominal pain. Patient is presenting with feelings of being overwhelmed. Pt's record reviewed for admission and noted that UA from this past admission was positive for Klebsiella. Pt has multiple allergies and organism is susceptible to gentamicin, cipro, cephalosporins and ampicillin. Pt has issues with PCN, cephalosporins and Cipro. UA with reflex ordered. Work up in ED included CT ABD and Pelvis which notes mild improvement of colitis as pt has been on Flagyl and was discharged to continue Flagyl po. Pt received dose of IV flagyl in ED. Stool for occult again positive but H/H stable with no indication for transfusion. Pt does not have a leukocytosis, fever but has intermittent nausea but no vomiting and rare episodes of diarrhea. Pt does have known aortic stenosis but follows with PCP and has routine echo's done. This could contribute to dizziness. Last echo was 02/2025 and noted mild aortic stenosis. Mild systolic murmur noted on exam. Patient also has diabetes but denies issues with hypoglycemia. Glucose on arrival to the ED was 121 mg/dl. Patient had no issues with hypoglycemia this past admission. Pt being admitted for colitis, stool for occult positive, ? UTI , generalized weakness s/p discharge 05/10. Hopsital course:79 yo female with PMH IDDM, HTN, HLD, Breast Cancer in remission status post radiation and lumpectomy, Aortic stenosis, UTI, chronic back pain and gout presents to ED after calling 911 for profound weakness after being discharged home 05/10 for colitis. Patient stated she was not able to tolerate anything orally including food or fluids. Patient felt nauseous with dry heaves but denied any vomiting. Pt was not able to walk. On arrival from her previous discharge, patient's neighbor was assisting patient into the home and patient suddenly collapsed and was caught by her neighbor but incurred a skin tear to the right lower extremity. Pt was also complaining of dizziness and lightheadedness. Patient denied having any chest pain, shortness of breath at rest or with exertion or profound abdominal pain. Patient is presenting with feelings of being overwhelmed. as above -Patient was admitted due to generalized weakness and also colitis: Patient received IV metronidazole, seen by ID: less likely Symptoms resolving viral syndrome. ct abd: shows improvment in colitis,wbc normal, also patient does not have any urinary complaints of no need for antibiotics for urinary coverage.stool occult blood positive due to colitis. H&H stable 10.7/31.8. generalised weakness and symptoms resolving, no dizziness ,asympomatic currently . Generalized weak: Patient is seems to be feeling much better p.o. intake is also improving. RLE skin tear:Nonstick dressing with cleansing ordered daily , dear area is improving, if needed consider wound consult out patiently. Seen by PT recommended rehab. Aortic Stenosis Mild on most recent echo 02/2025 Follow up as an outpatient No near syncope or syncopal episodes. plan: Encouraged for p.o. intake and hydration. Monitor for any new symptoms abdominal pain nausea vomiting diarrhea or urinary complaints or fever-if any new symptoms go to nearest emergency room for evaluation. Above management discussed with the patient in detail length she understand and in agreement with the above plan, time spent 45 minute. All questions answered. Staff was present during conversation. Time Attestation Total time managing care of this patient today: 45 mintues. Discharge Coordination Time (in mins): 45 min Quality: Safe Use of Opioids Does Pt have an Active Cancer Diagnosis on the Problem List?: No Quality: Stroke Does the patient have a stroke diagnosis?: No Physical Exam Exam: Exam: Appearance: Alert.? Oriented X3.? cvs: rrr, [id number]. res: clear to auscultation ,no rhonchii or wheezing abd: no rebound or guarding ,nt, bs present. ext pulses present , no cyanosis. neuro: axo3 , nonfocal. Vital Signs: Vital Signs: Last Vital Signs Temp 97.6 F 05/13/25 06:57 Pulse 73 05/13/25 09:30 Resp 16 05/13/25 06:57 BP 148/66 H 05/13/25 09:30 Pulse Ox 98 05/13/25 06:57 O2 Del Method Room Air 05/13/25 06:57 BMI result Body Mass Index 34.2 DS: Data Data Completed and Pending Labs on day of discharge: Laboratory Results - last 24 hr 05/12/25 05/12/25 05/13/25 16:05 20:28 07:03 POC Glucose 121 H 166 H 133 H 05/13/25 11:06 POC Glucose 140 H Imaging Chest x-ray: My impression: ct abd: Findings consistent with mild sigmoid colitis or inflammatory bowel disease. Mild interval improvement compared to 05/05/2025 exam. Discharge Plan Discharge Anticipated Discharge Date/Time: 05/13/25 11:53 Patient Disposition: [facility] Discharge Diagnosis: colitis -possible viral. Referrals: John Herrera, [facility] [Primary Care Provider, Internal Medicine] - 1 Week Discharge Medications: Continued (DME) pen needle, diabetic [Pen Needle] 31 gauge x 5/16 needle See Rx Instructions .Route Qty: 100 1RF Rx Instructions: Use to inject insulin once a day carvedilol 25 mg tablet 25 mg PO BID Qty: 180 1RF Rx Instructions: must administer with a meal/food magnesium oxide 400 mg magnesium tablet 400 mg PO DAILY 30 Days Qty: 30 0RF lidocaine 5 % adhesive patch,medicated 1 patch topical DAILY PRN (Reason: Pain) levothyroxine 50 mcg tablet 50 mcg PO DAILY@0600 gabapentin 100 mg capsule 100 mg PO DAILY atorvastatin 10 mg tablet 10 mg PO BEDTIME gabapentin 100 mg capsule 200 mg PO BEDTIME bupropion HCl 100 mg tablet 100 mg PO BEDTIME Januvia 100 mg tablet 100 mg PO DAILY insulin glargine [Lantus Solostar U-100 Insulin] 100 unit/mL (3 mL) insulin pen 10 - 12 unit subcut BEDTIME bupropion HCl 100 mg tablet 200 mg PO DAILY loperamide 2 mg Tablet 2 mg PO QID PRN (Reason: Diarrhea) Discontinued metronidazole 500 mg Tablet 500 mg PO Q8H Qty: 8 0RF Discharge Orders: Discharge Order (Routine); Ordered 05/13/25 Ordered By: Brown Romero Diet: Advance to usual diet Activity on Discharge: As tolerated Stand Alone Forms: Patient Portal Discharge page Print Language: Spanish Care Plan Goals: Patient was admitted due to generalized weakness and also colitis: Patient received IV metronidazole, seen by ID: less likely Symptoms resolving viral syndrome. ct abd: shows improvment in colitis, also patient does not have any urinary complaints of no need for antibiotics for urinary coverage. Generalized weak: Patient is seems to be feeling much better p.o. intake is also improving. RLE skin tear:Nonstick dressing with cleansing ordered daily , dear area is improving, if needed consider wound consult out patiently. Seen by PT recommended rehab. Health Concerns: as above. Plan of Treatment: As above. Assessment: As above. Patient Instructions: Colitis (ED)
--- NOTE | 2025-05-13 14:22 | MHC.CM.PN ---
PT WILL DC TO [facility] RM 401 TODAY AT 1430 VIA RAHUL SEYMOUR PT AWARE AND WILL UPDATE FAMILY
== END 2025-05-13 14:53 | disposition skilled nursing facility (03) | DRG 391 ==
LOC: HO.ED 05-11 03:18 → HO.EDOVER 05-11 03:30 → HO.S3 05-12 13:57
PROVIDERS: Internal Medicine; Nurse Practitioner Family; Physician Assistant Medical; Admitting Provider Student in an Organized Health Care Education/Training Program; Emergency Provider Emergency Medicine; PCP Nurse Practitioner Family; Visit Provider Internal Medicine
DX: A08.4 Viral intestinal infection, unspecified (principal); K55.039 Acute (reversible) ischemia of large intestine, extent unspecified; N39.0 Urinary tract infection, site not specified; E78.5 Hyperlipidemia, unspecified; Z85.3 Personal history of malignant neoplasm of breast; I35.0 Nonrheumatic aortic (valve) stenosis; E11.9 Type 2 diabetes mellitus without complications; R53.81 Other malaise; Z87.891 Personal history of nicotine dependence; Z79.4 Long term (current) use of insulin; Z79.890 Hormone replacement therapy; Z79.899 Other long term (current) drug therapy
CPT/HCPCS: 36415; 74177; 80053; 81001; 82248; 82272; 82947; 83605; 83690; 83735; 85025; 97116; 97162; 97530; 99285; 99499; J0360; J1836; J1920; J2470; Q9967

== ENCOUNTER → 2025-05-11 01:12 | Outpatient (BNV) | payer MEDICARE, OTHER, SELFPAY | PROVIDERS: Admitting Provider Student in an Organized Health Care Education/Training Program; Emergency Provider Emergency Medicine; PCP Nurse Practitioner Family; Visit Provider General Practice | DX: K52.89 Other specified noninfective gastroenteritis and colitis (principal) | CPT/HCPCS: 74177 ==

== ENCOUNTER → 2025-05-11 03:22 | Outpatient (BNV) | payer MEDICARE, OTHER, SELFPAY | PROVIDERS: Admitting Provider Student in an Organized Health Care Education/Training Program; Emergency Provider Emergency Medicine; PCP Nurse Practitioner Family; Visit Provider Internal Medicine | DX: R19.7 Diarrhea, unspecified (principal) | CPT/HCPCS: 99222 ==

== ENCOUNTER → 2025-05-11 03:22 | Outpatient (BNV) | payer MEDICARE, OTHER, SELFPAY | PROVIDERS: Admitting Provider Student in an Organized Health Care Education/Training Program; Emergency Provider Emergency Medicine; PCP Nurse Practitioner Family; Visit Provider Nurse Practitioner Family | DX: K52.9 Noninfective gastroenteritis and colitis, unspecified (principal); N30.00 Acute cystitis without hematuria | CPT/HCPCS: 99223; 99231 ==

== ENCOUNTER 2025-05-16 14:34 | Outpatient (REF) | payer SELFPAY ==
--- OUTSIDE RECORDS SUMMARY | 2024-03-26 07:20 | XMS_ITS ---
Author Organization [facility] Address [address] [place] [address] Care Team Providers Care Pari Mutual Ticket Checker Name Role Phone CHANDU CHISHOLM Primary Care Provider Taiwo Azar Unavailable [phone] REASON FOR VISIT diarrhea,wt loss,nausea Problems Problem Type SNOMED Code ICD Code Onset Dates Problem Status W/U Status Risk Notes Problem Diverticulosis o f large intestine without perforation or abscess without bleeding (K57.30) Active confirmed Encounters Encounter Location Date Provider Diagnosis [facility] [place] [address] [place], [place] [phone] 03/26/2024 Taiwo Mcintosh Diarrhea R19.7 ; W [...] NANCY VORA CDOB: [birth year] (79 yo F)Acc No.[id number]:03/26/2024 EGD and COL/MAC Patient: B ENOIT, NANCY C Provider: Domo Mcintosh MD :1945 A ge:78 Y S ex:Female Date:03/26/2024 Address:[address] [address] , [id number] Pcp:CHANDU CHISHOLM Subjective: * Chief Complaints: * [...] FLW-UP 10 YRS DOCD, Modifiers: 8P , 82254 UPPER GI ENDOSCOPY, BIOPSY * * The named appointment provid er may or may not be the originator of this progress note, and it is not deemed complete until electronically signed by the appointment provider. Sign off status: Pending * Provider: Domo Mcintosh MD Date: 03/26/2024 Generated for Leidy elaine/Manolo/eTmikeyitting on: 0 05/16/2025 02:46 PM EDT
--- OUTSIDE RECORDS SUMMARY | 2025-05-16 16:17 | XMS_ITS | Clinical Summary ---
Author Organization [facility] Address [address] [facility] [address] [place] [address] Phone Care Team Providers Care Wire Winding Machine Operator Name Role Phone John Herrera NP Primary Care Provider [phone] Allergies Active Allergy Reactions Criticality Noted Date [...] 01/12/2023 023, 01/22/2022, 01/19/2021 Influenza Vaccine (#1) 2025 Hepatitis B Vaccine Aged Out No [...] PM EST) Hemoglobin A1C 5.4 (4.0-5.6) % [facility] Comment: MONITORING: In known diabetic patients, hemoglobin A1c targets should be discussed with health care provider. DIAGNOSTIC USE: The [place] Diabetes Association (ADA) and the World Health [...] 1 Testing performed or reported by [facility], a Service of [facility], [address] [place] [address] Niall Pinto MD, Chief Strategy Officer [facility]# [id number] Blood specimen (specimen) Venous blood / Unknown 10/14/2022 4:03 PM EST 10/14/2022 4:05 PM EST us Karson Law MD LAB BLOOD ORDERABLES Carol rasmussen Result [facility] from Last 3 Months or Most Recently Relevant to Health Maintenance Insurance [employer] Medicare [facility] Medicare Care Teams Wire Winding Machine Operator Relationship Specialty Start Date End Date John Herrera NP [address] [place] [address] PCP - General Nurse Practitioner 09/05/21
--- OUTSIDE RECORDS SUMMARY | 2025-05-16 16:17 | XMS_ITS | Patient Health Record ---
Author Organization [facility] Address [address] [place] [address] Care Team Providers Care Patient Svcs Mgr Name Role Phone CHANDU CHISHOLM Primary Care Provider Taiwo Azar [phone] Allergies Allergen (clinical drug ingredient) Drug/Non Drug [...] (substance) Sulfa Antibiotics Unknown Drug Allergy Active Reason For Referral No Information Medications Medication SIG (Take, Route, Frequency, Duration) Notes Start Date End Date Status Omeprazole 20 MG TAKE 1 CAPSULE BY [facility] EVERY MORNING for 30 Active Imodium A-D [...] Problem Status W/U Status Risk Notes Problem 515897207 Encounter for screening for malignant neoplasm of colon (Z12.11) Active confirmed Problem Diarrhea (54221383) Diarrhea (R19.7) Active con firmed Problem Weight loss (337914588) Weight loss (R63.4) Active confirmed Problem Diverticular disease of colon (477217285) Diverticulosis of large intestine without perforation or abscess without bleeding (K57.30) Active confirmed Problem Nausea (177237525) Nausea (R11.0) Active confir med Problem 863317109729131 Preprocedural examination (Z01.818) Active confirmed Problem 65026027 Hypertension, unspecified type (I10) Active confirmed Problem 917306211 Encntr long-term NSAID use (Z79.1) Active confirmed Problem Gastroesophageal reflux disease (disorder) (620482385) Chronic GERD (K21.9) Active confirmed Vital Signs Blood pressure diastolic 00 mm Hg 08/10/2024 Height 61 in 08/10/2024 Blood pressure systolic 00 mm Hg 08/10/2024 Weight 174 lbs 08/10/2024 BMI 32.87 kg/m2 08/10/2024 Encounters Encounter Location Date Provider Diagnosis [address] [place] [address] 08/10/2024 Taiwo Mcintosh Diarrhea R19.7 ; Nausea [...] assistance in the future. Plan Of Treatment Pending Test Test Name [...] Date MEDICARE OF [place] [address] [place] [address] [phone] [id number] KAYLEEN VORA Self - patient is the insured [facility] [address] [address] [place] [address] [id number] KAYLEEN VORA Self - patient is the insured Medical (General) History Medical History History ICD Code Denies VT,CVA,Lung [...]
--- OUTSIDE RECORDS SUMMARY | 2025-05-16 16:17 | XMS_ITS | Encounter Summary ---
Author Organization [facility] Address [address] [place] [address] Care Team Providers Care Certified Forklift Operator Name Role Phone John Herrera ARAM Primary Care Provider Encounter Details Date Type Department Care Team (Latest Contact Info) Description 05/16/2025 Lab Requisition [facility] - Main Lab [address] [facility] [place] [address] Yared Vilal MD [address] [place] [address] Type 2 diabetes mellitus with other diabetic kidney complication (CMS/HCC V24, CMS/HCC V28); Essential (primary) hypertension; Muscle weakness (generalized); Other hyperlipidemia Social History Tobacco Use Types Packs/Day Years [...] Description 08/09/2025 11:00 AM EST Office Visit [facility] Hematology Oncology [address] [place] [address] Ceasar Colon MD [address] [place] [address] documented as of this encounter Procedures Procedure Name Priority Date/Time Associated Diagnosis Comments COMPLETE BLOOD COUNT Routine 05/16/2025 5:30 AM EDT Type 2 diabetes mellitus with other diabetic kidney complication (CMS/HCC V24, CMS/HCC V28) Essential (primary) hypertension Muscle weakness (generalized) Other hyperlipidemia COMPREHENSIVE METABOLIC PANEL Routine 05/16/2025 5:30 AM EDT Type 2 diabetes mellitus with other diabetic kidney complication ([facility] [place], [facility] V28) Essential (primary) hypertension Muscle weakness (generalized) Other hyperlipidemia documented in this encounter Results * (ABNORMAL) Comprehensive metabolic panel (05/16/2025 5:30 AM EDT) Sodium 141 133 - 145 mmol/L LAB CHEMISTRY METHOD 05/16/2025 1:30 PM [facility] Potassium 3.9 3.5 - 5.5 mmol/L LAB CHEMISTRY METHOD 05/16/2025 1:30 PM [facility] Chloride 108 96 - 110 mmol/L LAB CHEMISTRY METHOD 05/16/2025 1:30 PM [facility] CO2 25 21 - 32 mmol/L LAB CHEMISTRY METHOD 05/16/2025 1:30 PM [facility] Anion Gap 8 3 - 11 LAB CHEMISTRY METHOD 05/16/2025 1:30 PM [facility] Glucose 99 70 - 100 mg/dL LAB CHEMISTRY METHOD 05/16/2025 1:30 PM [facility] BUN 11 5 - 25 mg/dL LAB CHEMISTRY METHOD 05/16/2025 1:30 PM [facility] Creatinine 1.24(H) 0.50 - 1.10 mg/dL LAB CHEMISTRY METHOD 05/16/2025 1:30 PM [facility] eGFR 45(L) >=60 mL/min/1. 73m2 LAB CHEMISTRY METHOD 05/16/2025 1:30 PM [facility] Comment:Calculation based on the Chronic Kidney Disease Epidemiology Collaboration (CKD-EPI) equation refit without adjustment for race. BUN/Creatinine Ratio 8.9 LAB CHEMISTRY METHOD 05/16/2025 1:[address] [facility] Calcium 8.8 8.5 - 10.5 mg/dL LAB CHEMISTRY METHOD 05/16/2025 1:[address] [facility] AST (SGOT) 21 10 - 42 unit/L LAB CHEMISTRY METHOD 05/16/2025 1:[address] [facility] ALT (SGPT) 14 10 - 60 unit/L LAB CHEMISTRY METHOD 05/16/2025 1:[address] [facility] Alkaline Phosphatase 94 42 - 121 unit/L LAB CHEMISTRY METHOD 05/16/2025 1:[address] [facility] Total Protein 5.7(L) 6.0 - 8.0 g/dL LAB CHEMISTRY METHOD 05/16/2025 1:[address] [facility] Albumin 2.8(L) 3.2 - 5.0 g/dL LAB CHEMISTRY METHOD 05/16/2025 1:[address] [facility] Total Bilirubin 0.4 0.0 - 1.4 mg/dL LAB CHEMISTRY METHOD 05/16/2025 1:[address] [facility] Blood Venous blood specimen / Unknown 05/16/2025 5:30 AM EDT 05/16/2025 11:19 AM EDT us Yared Villa MD LAB BLOOD ORDERABLES Final Resu lt [facility] [address] [place] [address], [place] [phone] * (ABNORMAL) Complete blood count (05/16/2025 5:30 AM EDT) WBC 5.1 4.8 - 10.8 K/[facility] LAB HEMETOLOGY METHOD 05/16/2025 12:[address] [facility] RBC 3.50(L) 3.80 - 4.80 M/mcL LAB HEMETOLOGY METHOD 05/16/2025 12:[address] [facility] Hemoglobin 10.7(L) 11.5 - 16.0 g/dL LAB HEMETOLOGY METHOD 05/16/2025 12:54 PM [facility] Hematocrit 34.5(L) 35.0 - 47.0 % LAB HEMETOLOGY METHOD 05/16/2025 12:54 PM [facility] MCV 100.0(H) 79.0 - 98.0 FL LAB HEMETOLOGY METHOD 05/16/2025 12:54 PM [facility] MCH 31.0 27.0 - 32.0 pcg LAB HEMETOLOGY METHOD 05/16/2025 12:54 PM [facility] MCHC 31.0(L) 32.0 - 37.0 g/dL LAB HEMETOLOGY METHOD 05/16/2025 12:54 PM [facility] RDW 12.7 11.0 - 15.0 % LAB HEMETOLOGY METHOD 05/16/2025 12:54 PM [facility] Platelets 241 130 - 400 K/mcL LAB HEMETOLOGY METHOD 05/16/2025 12:54 PM [facility] MPV 11.1(H) 7.0 - 11.0 FL LAB HEMETOLOGY METHOD 05/16/2025 12:54 PM [facility] NRBC 0.0 <1.0 % LAB HEMETOLOGY METHOD 05/16/2025 12:54 PM [facility] NRBC Absolute 0.00 <0.10 K/mcL LAB HEMETOLOGY METHOD 05/16/2025 12:54 PM [facility] Blood Venous blood specimen / Unknown Venipuncture / Unknown 05/16/2025 5:30 AM EDT 05/16/2025 11:19 AM EDT us Yared Villa MD LAB BLOOD ORDERABLES Final Resu lt [facility] [address] [place] [address], documented in this encounter Visit Diagnoses Diagnosis Type 2 diabetes mellitus with other diabetic kidney complication (CMS/HCC V24, CMS/HCC V28) Essential (primary) hypertension Unspecified essential hypertension Muscle weakness (generalized) Other hyperlipidemia documented in this encounter Care Teams Certified Forklift Operator Relationship Specialty Start Date End Date John Herrera NP [address] [place], [place] PCP - General 05/30/23 documented as of this encounter
--- OUTSIDE RECORDS SUMMARY | 2025-05-16 16:17 | XMS_ITS | Clinical Summary ---
Author Organization [facility] Address [address] [place] [address] Phone Care Team Providers Care Mixing Operator Name Role Phone John Herrera NP [...] Encounters Date Type Department Care Team Description 05/16/2025 Lab Requisition [facility] - Main Lab [address] [facility] [place] [address] Yared Villa MD Type 2 diabetes mellitus with other diabetic kidney complication ([facility] [place]24, CMS/HCC V28); Essential (primary) hypertension; Muscle weakness (generalized); Other hyperlipidemia 05/15/2025 Lab Requisition [facility] - Main Lab [address] [facility] [place] [address] Yared Villa MD Essential (primary) hypertension; Other hyperlipidemia; Type 2 diabetes mellitus with other diabetic kidney complication ([facility] [place] [place]24, [facility] V28); Muscle weakness (generalized) from Last 3 Months Social History Tobacco [...] Description 08/09/2025 11:00 AM EST Office Visit [facility] Hematology Oncology [address] [place] [address] Ceasar Colon MD [address] [place] [address] Health Maintenance Due Date Last Done Comments Diabetes: Annual Foot Exam 1955 Diabetes: Annual [...] Blood Sugar Control Test (HGBA1C) 08/09/2024 10/14/2022 Depression Screening 09/22/2024 COVID-19 Vaccine (7 - Pfizer risk 2023- season) 2024 06/14/2024, 06/24/2023, 05/14/2022, Additional history exists Influenza Vaccine (#1) 2025 , 06/24/2023, 05/14/2022, Additional history exists Diabetes: Annual GFR (Glomerular Filtration Rate) 05/16/2026 05/16/2025, 05/15/2025 Hypertension/CHF/CAD Annual BMP Blood Test 05/16/2026 05/16/2025, 05/15/2025 Pneumococcal Vaccine: 50+ Years Completed 06/04/2021, 04/30/2020, [...] Procedure Name Priority Date/Time Associated Diagnosis Comments COMPREHENSIVE METABOLIC PANEL Routine 05/16/2025 5:30 AM EDT Type 2 diabetes mellitus with other diabetic kidney complication (CMS/HCC V24, CMS/HCC V28) Essential (primary) hypertension Muscle weakness (generalized) Other hyperlipidemia COMPLETE BLOOD COUNT Routine 05/16/2025 5:30 AM EDT Type 2 diabetes mellitus with other diabetic kidney complication (CMS/HCC V24, CMS/HCC V28) Essential (primary) hypertension Muscle weakness (generalized) Other hyperlipidemia COMPREHENSIVE METABOLIC PANEL Routine 05/15/2025 5:12 AM EDT Essential (primary) hypertension Other hyperlipidemia Type 2 diabetes mellitus with other diabetic kidney complication (CMS/HCC V24, CMS/HCC V28) Muscle weakness (generalized) COMPLETE BLOOD COUNT Routine 05/15/2025 5:12 AM EDT Essential (primary) hypertension Other hyperlipidemia Type 2 diabetes mellitus with other diabetic kidney complication (CMS/HCC V24, CMS/HCC V28) Muscle weakness (generalized) from Last 3 Months Results * (ABNORMAL) Complete blood count (05/16/2025 5:30 AM EDT) Only the most recent of2 resultswithin the time period is included. WBC 5.1 4.8 - 10.8 K/mcL LAB HEMETOLOGY METHOD 05/16/2025 12:54 PM [facility] RBC 3.50(L) 3.80 - 4.80 M/mcL LAB [facility]EMETOLOG[facility] Hemoglobin 10.7(L) 11.5 - 16.0 g/dL LAB HEMETOLOGY METHOD 05/16/2025 12:54 PM [facility] Hematocrit 34.5(L) 35.0 - 47.0 % LAB HEMETOLOGY METHOD 05/16/2025 12:54 PM [facility] MCV 100.0(H) 79.0 - 98.0 FL LAB HEMETOLOGY METHOD 05/16/2025 12:54 PM EDT [facility] MCH 31.0 27.0 - 32.0 pcg LAB HEMETOLOGY METHOD 05/16/2025 12:54 PM EDT [facility] MCHC 31.0(L) 32.0 - 37.0 g/dL LAB HEMETOLOGY METHOD 05/16/2025 12:54 PM EDT [facility] RDW 12.7 11.0 - 15.0 % LAB HEMETOLOGY METHOD 05/16/2025 12:54 PM EDT [facility] Platelets 241 130 - 400 K/mcL LAB HEMETOLOGY METHOD 05/16/2025 12:54 PM EDT [facility] MPV 11.1(H) 7.0 - 11.0 FL LAB HEMETOLOGY METHOD 05/16/2025 12:54 PM EDT [facility] NRBC 0.0 <1.0 % LAB HEMETOLOGY METHOD 05/16/2025 12:54 PM EDT [facility] NRBC Absolute 0.00 <0.10 K/mcL LAB HEMETOLOGY METHOD 05/16/2025 12:54 PM EDT [facility] Blood Venous blood specimen / Unknown Venipuncture / Unknown 05/16/2025 5:30 AM EDT 05/16/2025 11:19 AM EDT us Yared Villa MD LAB BLOOD ORDERABLES Final Resu lt [facility] [address] [place] [address], * (ABNORMAL) Comprehensive metabolic panel (05/16/2025 5:30 AM EDT) Only the most recent of2 resultswithin the time period is included. Sodium 141 133 - 145 mmol/L LAB CHEMISTRY METHOD 05/16/2025 1:30 PM EDT [facility] Potassium 3.9 3.5 - 5.5 mmol/L LAB CHEMISTRY METHOD 05/16/2025 1:30 PM [facility] Chloride 108 96 - 110 mmol/L LAB CHEMISTRY METHOD 05/16/2025 1:30 PM [facility] CO2 25 21 - 32 mmol/L LAB CHEMISTRY METHOD 05/16/2025 1:30 PM [facility] Anion Gap 8 3 - 11 LAB CHEMISTRY METHOD 05/16/2025 1:30 PM [facility] Glucose 99 70 - 100 mg/dL LAB CHEMISTRY METHOD 05/16/2025 1:30 PM [facility] BUN 11 5 - 25 mg/dL LAB CHEMISTRY METHOD 05/16/2025 1:30 PM [facility] Creatinine 1.24(H) 0.50 - 1.10 mg/dL LAB CHEMISTRY METHOD 05/16/2025 1:30 PM [facility] eGFR 45(L) >=60 mL/min/1. 73m2 LAB CHEMISTRY METHOD 05/16/2025 1:30 PM [facility] Comment:Calculation based on the Chronic Kidney Disease Epidemiology Collaboration (CKD-EPI) equation refit without adjustment for race. BUN/Creatinine Ratio 8.9 LAB CHEMISTRY METHOD 05/16/2025 1:30 PM [facility] Calcium 8.8 8.5 - 10.5 mg/dL LAB CHEMISTRY METHOD 05/16/2025 1:30 PM [facility] AST (SGOT) 21 10 - 42 unit/L LAB CHEMISTRY METHOD 05/16/2025 1:30 PM [facility] ALT (SGPT) 14 10 - 60 unit/L LAB CHEMISTRY METHOD 05/16/2025 1:30 PM [facility] Alkaline Phosphatase 94 42 - 121 unit/L LAB CHEMISTRY METHOD 05/16/2025 1:30 PM [facility] Total Protein 5.7(L) 6.0 - 8.0 g/dL LAB CHEMISTRY METHOD 05/16/2025 1:30 PM EDT [facility] Albumin 2.8(L) 3.2 - 5.0 g/dL LAB CHEMISTRY METHOD 05/16/2025 1:30 PM EDT [facility] Total Bilirubin 0.4 0.0 - 1.4 mg/dL LAB CHEMISTRY METHOD 05/16/2025 1:30 PM EDT [facility] Blood Venous blood specimen / Unknown 05/16/2025 5:30 AM EDT 05/16/2025 11:19 AM EDT Yared Villa MD LAB BLOOD ORDERABLES Final Resu lt [facility] [address] [place] [address], from Last 3 Months Insurance MEDICARE [facility] Care Teams Mixing Operator Relationship Specialty Start Date End Date [facility] Her[facility] [address] [facility] [place] P[facility] - General 05/30/23
--- OUTSIDE RECORDS SUMMARY | 2025-05-16 16:17 | XMS_ITS | Encounter Summary ---
Author Organization [facility] Address [address] [place] [address] Care Team Providers Care Gaming Director Name Role Phone John Herrera ARAM Primary Care Provider Encounter Details Date Type Department Care Team (Late Contact Info) Description 05/15/2025 Lab Requisition [facility] - Main Lab [address] [facility] [place] [address] Yared Villa MD [address] [place] [address] Essential (primary) hypertension; Other hyperlipidemia; Type 2 diabetes mellitus with other diabetic kidney complication (CMS/HCC V24, CMS/HCC V28); Muscle weakness (generalized) Social History Tobacco Use Types Packs/Day Years Used Date Smoking Tobacco: Never Assessed Comments Unknown Sex and Gender Information Value Date Recorded Sex Assigned at Not on file Legal Sex Female 11:09 AM EST Gender Identity Not on file Sexual Orientation Not on file documented as of this encounter Plan of Treatment Upcoming Encounters Date Type Department Care Team (Late Contact Info) Description 08/09/2025 11:00 AM EST Office Visit Hematology Oncology [address] [place] [address] Ceasar Colon MD [address] [place] [address] documented as of this encounter Procedures Procedure Name Priority Date/Time Associated Diagnosis Comments COMPLETE BLOOD COUNT Routine 05/15/2025 5:12 AM EDT Essential (primary) hypertension Other hyperlipidemia Type 2 diabetes mellitus with other diabetic kidney complication (CMS/[facility] V24, [facility] V28) Muscle weakness (generalized) COMPREHENSIVE METABOLIC PANEL Routine 05/15/2025 5:12 AM EDT Essential (primary) hypertension Other hyperlipidemia Type 2 diabetes mellitus with other diabetic kidney complication ([facility] V24, [facility] V28) Muscle weakness (generalized) documented in this encounter Results * (ABNORMAL) Comprehensive metabolic panel (05/15/2025 5:12 AM EDT) Sodium 140 133 - 145 mmol/L LAB CHEMISTRY METHOD 05/15/2025 10:[address] [facility] Potassium 4.2 3.5 - 5.5 mmol/L LAB CHEMISTRY METHOD 05/15/2025 10:[address] [facility] Chloride 107 96 - 110 mmol/L LAB CHEMISTRY METHOD 05/15/2025 10:[address] [facility] CO2 28 21 - 32 mmol/L LAB CHEMISTRY METHOD 05/15/2025 10:[address] [facility] Anion Gap 5 3 - 11 LAB CHEMISTRY METHOD 05/15/2025 10:[address] [facility] Glucose 96 70 - 100 mg/dL LAB CHEMISTRY METHOD 05/15/2025 10:[address] [facility] BUN 9 5 - 25 mg/dL LAB CHEMISTRY METHOD 05/15/2025 10:[address] [facility] Creatinine 1.34(H) 0.50 - 1.10 mg/dL LAB CHEMISTRY METHOD 05/15/2025 10:[address] [facility] eGFR 41(L) >=60 mL/min/1. 73m2 LAB CHEMISTRY METHOD 05/15/2025 10:[address] [facility] Comment:Calculation based on the Chronic Kidney Disease Epidemiology Collaboration (CKD-EPI) equation refit without adjustment for race. BUN/Creatinine Ratio 6.7 LAB CHEMISTRY METHOD 05/15/2025 10:[address] [facility] Calcium 8.8 8.5 - 10.5 mg/dL LAB CHEMISTRY METHOD 05/15/2025 10:[address] [facility] AST (SGOT) 15 10 - 42 unit/L LAB CHEMISTRY METHOD 05/15/2025 10:[address] [facility] ALT (SGPT) 13 10 - 60 unit/L LAB CHEMISTRY METHOD 05/15/2025 10:[address] [facility] Alkaline Phosphatase 77 42 - 121 unit/L LAB CHEMISTRY METHOD 05/15/2025 10:[address] [facility] Total Protein 5.2(L) 6.0 - 8.0 g/dL LAB CHEMISTRY METHOD 05/15/2025 10:[address] [facility] Albumin 2.7(L) 3.2 - 5.0 g/dL LAB CHEMISTRY METHOD 05/15/2025 10:[address] [facility] Total Bilirubin 0.3 0.0 - 1.4 mg/dL LAB CHEMISTRY METHOD 05/15/2025 10:[address] [facility] Blood Venous blood specimen / Unknown Venipuncture / Unknown 05/15/2025 5:12 AM EDT 05/15/2025 8:47 AM EDT us Yared Villa MD LAB BLOOD ORDERABLES Final Resu lt [facility] [address] [place] [address], * (ABNORMAL) Complete blood count (05/15/2025 5:12 AM EDT) WBC 5.3 4.8 - 10.8 K/mcL LAB HEMETOLOGY METHOD 05/15/2025 9:[address] [facility] RBC 3.30(L) 3.80 - 4.80 M/mcL LAB HEMETOLOGY METHOD 05/15/2025 9:[address] [facility] Hemoglobin 10.1(L) 11.5 - 16.0 g/dL LAB HEMETOLOGY METHOD 05/15/2025 9:[address] [facility] Hematocrit 31.8(L) 35.0 - 47.0 % LAB HEMETOLOGY METHOD 05/15/2025 9:[address] [facility] MCV 97.5 79.0 - 98.0 FL LAB HEMETOLOGY METHOD 05/15/2025 9:[address] [facility] MCH 31.0 27.0 - 32.0 pcg LAB HEMETOLOGY METHOD 05/15/2025 9:[address] [facility] MCHC 31.8(L) 32.0 - 37.0 g/dL LAB HEMETOLOGY METHOD 05/15/2025 9:[address] [facility] RDW 12.7 11.0 - 15.0 % LAB HEMETOLOGY METHOD 05/15/2025 9:[address] [facility] Platelets 257 130 - 400 K/mcL LAB HEMETOLOGY METHOD 05/15/2025 9:[address] [facility] MPV 10.9 7.0 - 11.0 FL LAB HEMETOLOGY METHOD 05/15/2025 9:[address] [facility] NRBC 0.0 <1.0 % LAB HEMETOLOGY METHOD 05/15/2025 9:[address] [facility] NRBC Absolute 0.00 <0.10 K/mcL LAB HEMETOLOGY METHOD 05/15/2025 9:[address] [facility] Blood Venous blood specimen / Unknown Venipuncture / Unknown 05/15/2025 5:12 AM EDT 05/15/2025 8:47 AM EDT us Yared Vlila MD LAB BLOOD ORDERABLES Final Resu lt [facility] [address] [place] [address], documented in this encounter Visit Diagnoses Diagnosis Essential (primary) hypertension Unspecified essential hypertension Other hyperlipidemia Type 2 diabetes mellitus with other diabetic kidney complication (CMS/HCC V24, CMS/HCC V28) Muscle weakness (generalized) documented in this encounter Care Teams Gaming Director Relationship Specialty Start Date End Date John Herrera NP [address] [place], [place] PCP - General 05/30/23 documented as of this encounter
--- OUTSIDE RECORDS SUMMARY | 2025-05-16 16:17 | XMS_ITS | Clinical Summary ---
Author Organization [facility] Address [address] [place] [address] Care Team Providers Care Equipment Services Associate Name Role Phone John Herrera Primary Care Provider [phone] Allergies Active Allergy Reactions Criticality Noted Date [...] age to complete this topic Care Teams Equipment Services Associate Relationship Specialty Start Date End Date John Herrera [address] [facility] [place] [address] PCP - General Family Medicine 05/30/23
--- OUTSIDE RECORDS SUMMARY | 2025-05-16 16:17 | XMS_ITS | Encounter Summary ---
Author Organization [facility] Address [address] [place] [address] Phone Care Team Providers Care Systems Planner Name Role Phone John Herrera NP Primary Care Provider [phone] Reason for Visit * Reason Comments Med Refill Encounter Details Date Type Department Care Team (Late st Contact Info) Description 11/15/2023 Refill [facility] [address] [place] [phone] Karson Law MD Social History Tobacco Use [...] on filedocumented in this encounter Care Teams Systems Planner Relationship Specialty Start Date End Date John Herrera NP [address] [facility] [place] [address] PCP - General Nurse Practitioner 09/05/21 documented as of this encounter
== END 2025-05-16 14:35 | disposition home or self-care (01) ==
LOC: HO.HAP 14:34
PROVIDERS: Visit Provider Nurse Practitioner Family
DX: Z13.89 Encounter for screening for other disorder (principal)

== ENCOUNTER 2025-05-17 15:27 | Outpatient (REF) | payer SELFPAY ==
--- OUTSIDE RECORDS SUMMARY | 2024-03-26 07:20 | XMS_ITS ---
Author Organization [facility] Address [address] [place] [address] Care Team Providers Care Senior Data Scientist Name Role Phone CHANDU CHISHOLM Primary Care Provider Taiwo Azar Unavailable [phone] REASON FOR VISIT diarrhea,wt loss,nausea Problems Problem Type SNOMED Code ICD Code Onset Dates Problem Status W/U Status Risk Notes Problem Diverticular disease of colon (187507960) Diverticulosis of large intestine without perforation or abscess without bleeding (K57.30) Active confirmed Encounters Encounter Location Date Provider Diagnosis [facility] [place] [address] [place], [place] [phone] 03/26/2024 Taiwo Mcintosh Diarrhea R19.7 ; W [...] NANCY VORA CDOB: 7 (79 yo F)Acc No.[id number]:03/26/2024 EGD and COL/MAC Patient: NANCY COHEN Provider: Domo Mcintosh MD :1945 A ge:78 Y S ex:Female Date:03/26/2024 Address:[address] [address] , [id number] Pcp:CHANDU CHISHOLM Subjective: * Chief Complaints: * [...] FLW-UP 10 YRS DOCD, Modifiers: 8P , 44744 UPPER GI ENDOSCOPY, BIOPSY * * The named appointment provid er may or may not be the originator of this progress note, and it is not deemed complete until electronically signed by the appointment provider. Sign off status: Pending * Provider: Domo Mcintosh MD Date: 03/26/2024 Generated for Leidy elaine/Manolo/Sunitting on: 05/17/2025 04:24 PM EDT
--- OUTSIDE RECORDS SUMMARY | 2025-05-17 16:24 | XMS_ITS | Clinical Summary ---
Author Organization [facility] Address [address] [place] [address] Care Team Providers Care Software Quality Automation Engineer Name Role Phone John Herrera Primary Care [...] age to complete this topic Care Teams Software Quality Automation Engineer Relationship Specialty Start Date End Date John Herrera [address] [facility] [place] [address] PCP - General Family Medicine 05/30/23
--- OUTSIDE RECORDS SUMMARY | 2025-05-17 16:24 | XMS_ITS | Encounter Summary ---
Author Organization [facility] Address [address] [place] [address] Phone Care Team Providers Care Drilling Field Operator Name Role Phone John Herrera NP Primary Care Provider [phone] Reason for Visit * Reason Comments Med Refill Encounter Details Date Type Department Care Team (Late st Contact Info) Description 11/15/2023 Refill [facility] [address] [place] [phone] Karson Law MD Social History Tobacco Use [...] on filedocumented in this encounter Care Teams Drilling Field Operator Relationship Specialty Start Date End Date John Herrera NP [address] [facility] [place] [address] PCP - General Nurse Practitioner 09/05/21 documented as of this encounter
--- OUTSIDE RECORDS SUMMARY | 2025-05-17 16:25 | XMS_ITS | Clinical Summary ---
Author Organization [facility] Address [address] [place] [address] Phone Care Team Providers Care Doorperson Or Luggage Porter Name Role Phone John Herrera NP Primary [...] Department Care Team Description 05/16/2025 Lab Requisition [facility] - Main Lab [address] [facility] [place] [address] Yared Villa MD Type 2 diabetes mellitus with other diabetic kidney complication ([facility] [place]24, CMS/HCC V28); Essential (primary) hypertension; Muscle weakness (generalized); Other hyperlipidemia 05/15/2025 Lab Requisition [facility] - Main Lab 299 [facility] [place] [address] Yared Villa MD Essential (primary) hypertension; Other hyperlipidemia; Type 2 diabetes mellitus with other diabetic kidney complication ([facility] V24, [facility] V28); Muscle weakness (generalized) from Last 3 [...] AM EST Office Visit Hematology Oncology [address] [place] [address] Ceasar Colon MD [address] [place] [address] Health Maintenance Due Date Last Done Comments [...] K/mcL LAB HEMETOLOGY METHOD 05/16/2025 12:54 PM [facility] RBC 3.50(L) 3.80 - 4.80 M/mcL LAB [facility] Hemoglobin 10.7(L) 11.5 - 16.0 g/dL LAB HEMETOLOGY METHOD 05/16/2025 12:54 PM [facility] Hematocrit 34.5(L) 35.0 - 47.0 % LAB HEMETOLOGY METHOD 05/16/2025 12:54 PM [facility] MCV 100.0(H) 79.0 - 98.0 FL LAB HEMETOLOGY METHOD 05/16/2025 12:54 PM EDT [facility] MCH 31.0 27.0 - 32.0 pcg LAB HEMETOLOGY METHOD 05/16/2025 12:54 PM EDT [facility] MCHC 31.0(L) 32.0 - 37.0 g/dL LAB HEMETOLOGY METHOD 05/16/2025 12:54 PM EDT [facility] RDW 12.7 11.0 - 15.0 % LAB HEMETOLOGY METHOD 05/16/2025 12:54 PM EDT [facility] Platelets 241 130 - 400 K/mcL LAB HEMETOLOGY METHOD 05/16/2025 12:54 PM EDT [facility] MPV 11.1(H) 7.0 - 11.0 FL LAB HEMETOLOGY METHOD 05/16/2025 12:54 PM EDT [facility] NRBC 0.0 <1.0 % LAB HEMETOLOGY METHOD 05/16/2025 12:54 PM EDT [facility] NRBC Absolute 0.00 <0.10 K/mcL LAB HEMETOLOGY METHOD 05/16/2025 12:54 PM EDT [facility] Blood Venous blood specimen / Unknown Venipuncture / Unknown 05/16/2025 5:30 AM EDT 05/16/2025 11:19 AM EDT us Yared Villa MD LAB BLOOD ORDERABLES Final Resu lt [facility] [address] [place] [address], * (ABNORMAL) Comprehensive metabolic panel (05/16/2025 5:30 AM EDT) Only the most recent of2 resultswithin the time period is included. Sodium 141 133 - 145 mmol/L LAB CHEMISTRY METHOD 05/16/2025 1:30 PM EDT [facility] Potassium 3.9 3.5 - 5.5 mmol/L LAB CHEMISTRY METHOD 05/16/2025 1:30 PM [facility] Chloride 108 96 - 110 mmol/L LAB CHEMISTRY METHOD 05/16/2025 1:30 PM [facility] CO2 25 21 - 32 mmol/L LAB CHEMISTRY METHOD 05/16/2025 1:30 PM [facility] Anion Gap 8 3 - 11 LAB CHEMISTRY METHOD 05/16/2025 1:30 PM [facility] Glucose 99 70 - 100 mg/dL LAB CHEMISTRY METHOD 05/16/2025 1:30 PM [facility] BUN 11 5 - 25 mg/dL LAB CHEMISTRY METHOD 05/16/2025 1:30 PM [facility] Creatinine 1.24(H) 0.50 - 1.10 mg/dL LAB CHEMISTRY METHOD 05/16/2025 1:30 PM [facility] eGFR 45(L) >=60 mL/min/1. 73m2 LAB CHEMISTRY METHOD 05/16/2025 1:30 PM [facility] Comment:Calculation based on the Chronic Kidney Disease Epidemiology Collaboration (CKD-EPI) equation refit without adjustment for race. BUN/Creatinine Ratio 8.9 LAB CHEMISTRY METHOD 05/16/2025 1:30 PM [facility] Calcium 8.8 8.5 - 10.5 mg/dL LAB CHEMISTRY METHOD 05/16/2025 1:30 PM [facility] AST (SGOT) 21 10 - 42 unit/L LAB CHEMISTRY METHOD 05/16/2025 1:30 PM [facility] ALT (SGPT) 14 10 - 60 unit/L LAB CHEMISTRY METHOD 05/16/2025 1:30 PM [facility] Alkaline Phosphatase 94 42 - 121 unit/L LAB CHEMISTRY METHOD 05/16/2025 1:30 PM [facility] Total Protein 5.7(L) 6.0 - 8.0 g/dL LAB CHEMISTRY METHOD 05/16/2025 1:30 PM EDT [facility] Albumin 2.8(L) 3.2 - 5.0 g/dL LAB CHEMISTRY METHOD 05/16/2025 1:30 PM EDT [facility] Total Bilirubin 0.4 0.0 - 1.4 mg/dL LAB CHEMISTRY METHOD 05/16/2025 1:30 PM EDT [facility] Blood Venous blood specimen / Unknown 05/16/2025 5:30 AM EDT 05/16/2025 11:19 AM EDT Yared Villa MD LAB BLOOD ORDERABLES Final Resu lt [facility] [address] [place] [address], from Last 3 Months Insurance MEDICARE [facility] Care Teams Doorperson Or Luggage Porter Relationship Specialty Start Date End Date [facility] [address] [facility] [place] [facility] - [facility] 05/30/23
--- OUTSIDE RECORDS SUMMARY | 2025-05-17 16:25 | XMS_ITS | Clinical Summary ---
Author Organization [facility] Address [address] [place] [address] Care Team Providers Care Oxygen Therapist Name Role Phone John Herrera MD Primary [...] tablet Take 10 mg by mouth daily. 3 Active buPROPion (WELLBUTRIN) 100 MG tablet Take 1 tablet by mouth 2 (two) times a day. 3 Active carvedilol (COREG) 25 MG tablet 3 Active insulin glargine (Lantus SoloStar) 100 units/mL prefilled pen injection See Admin Instructions. Active levothyroxine (SYNTHROID, LEVOTHROID) 50 MCG tablet Take 50 mcg by mouth daily. 3 Active sitaGLIPtin (Januvia) 100 MG tablet Take 100 mg by mouth daily. 3 Active gabapentin (NEURONTIN) 100 MG capsule 4 Active lidocaine (LIDODERM) 5 % patch APPLY 1 PATCH TOPICALLY TO THE SKIN DAILY. MAY WEAR UP TO 12 HOURS 5 Active Active Problems Problem Noted Date Diagnosed Date Secondary hyperparathyroidism 02/09/2024 CKD stage 3b, GFR 30-44 ml/min 02/09/2024 Anemia associated with chronic renal failure Essential hypertension 02/09/2024 Hypovitaminosis D 02/09/2024 Diabetic nephropathy associa kendrick with type 2 diabetes mellitus 02/09/2024 Nephrolithiasis 02/09/2024 Encounters Date Type Department Care Team Description 03/22/2025 Orders Only [facility] Department of Internal Medicine & Nephrology [place] [address] [place] [address] Karson Law MD 03/18/2025 10:20 AM EDT Office Visit [facility] Department of Internal Medicine & Nephrology [place] [address] [place] [address] Karson Law MD CKD stage 3b, GFR 30-44 ml/min (HCC) (Primary Dx); Hypovitaminosis D; Secondary hyperparathyroidism ; Anemia associated with chronic renal failure; Diabetic nephropathy associated with type 2 diabetes mellitus (HCC); Essential hypertension 03/18/2025 Orders Only [facility] Department of Internal Medicine & Nephrology [place] [address] [place] [address] Karson Law MD CKD stage 3b, GFR 30-44 ml/min (HCC); Hypovitaminosis D; Secondary hyperparathyroidism ; Anemia associated with chronic renal failure; Diabetic nephropathy associated with type 2 diabetes mellitus (HCC); Essential hypertension 03/18/2025 Telephone [facility] Department of Internal Medicine & Nephrology [place] [address] [facility] [address] [place] [address] Karson Law MD 03/11/2025 Orders Only [facility] Department of Internal Medicine & Nephrology [place] [address] [facility] [facility] [address] [facility] [address] [place] [address] Karson Law MD Secondary hyperparathyroidism (Primary Dx); Hypovitaminosis D; CKD stage 3b, GFR 30-44 ml/min (HCC); Anemia associated with chronic renal failure; Nephrolithiasis; Diabetic nephropathy associated with type 2 diabetes mellitus (HCC) from Last 3 Months Social History Tobacco Use Types Packs/Day Years Used Date Smoking Tobacco: Never Assessed Comments Unknown Sex and Gender Information Value Date Recorded Sex Assigned at Female 02/15/2025 9:38 AM EDT Legal Sex Female 12:02 PM EDT Gender Identity Female 02/15/2025 9:38 AM EDT Sexual Orientation Not on file Last Filed Vital Signs Vital Sign Reading Time Taken Comments Blood Pressure 136/82 03/18/2025 10:15 AM EDT Pulse 53 03/18/2025 10:15 AM EDT Temperature - - Respiratory Rate - - Oxygen Saturation 97% 03/18/2025 10:15 AM EDT Inhaled Oxygen Concentration - - Weight 79.8 kg (176 lb) 03/18/2025 10:15 AM EDT Height - - Body Mass Index - - Plan of Treatment Upcoming Encounters Date Type Department Care Team (Late st Contact Info) Description 12/19/2025 1:00 PM EDT Office Visit [facility] Department of Internal Medicine & Nephrology [place] [address] [place] [address] Karson Law MD [address] [address] Health Maintenance Due Date Last Done Comments [...] Procedure Name Priority Date/Time Associated Diagnosis Comments LAB RESULT Routine 03/17/2025 8:26 AM EDT HEMOGLOBIN A1C Routine 08/10/2024 2:47 PM EST BASIC METABOLIC PANEL Routine 08/10/2024 2:47 PM EST from Last 3 Months or Most Recently Relevant to Health Maintenance Results * LAB RESULT (03/17/2025 8:26 AM EDT) Karson Law MD HX AMB PROCEDURES Final R esult * (ABNORMAL) Hemoglobin A1C (08/10/2024 2:47 PM EST) Hemoglobin A1C 5.7(H) 4.8 - 5.6 % [facility] 1 Comment: Prediabetes: 5.7 - 6.4 Diabetes: >6.4 Glycemic control for adults with diabetes: <7.0 08/10/2024 2:47 PM EST 08/10/2024 Narrative [facility] ([place]) - 08/11/2024 6:10 AM EST Performed at: - [facility] [id number] Sterile Process Tech: Suzi Stern MD, Phone: [phone] Karson Law MD LAB BLOOD ORDERABLES Carol [...] 08/10/2024 2:47 PM EST 08/10/2024 Narrative [facility] ([place]) - 08/11/2024 7:07 AM EST Performed at: 01 - [facility] [address] [id number] Sterile Process Tech: Suzi Stern MD, Phone: [phone] Karson Law MD LAB BLOOD ORDERABLES Carol grady Result [facility] (DEL) [facility] 1 from Last 3 Months or Most Recently Relevant to Health Maintenance Insurance MEDICARE PART A & B [facility]PPLE[facility] ONLY Care Teams Oxygen Therapist Relationship Specialty Start Date End Date John Herrera MD [address] [place] [address] PCP - General Family Medicine 02/03/24
--- OUTSIDE RECORDS SUMMARY | 2025-05-17 16:25 | XMS_ITS | Encounter Summary ---
Author Organization [facility] Address [address] [place] [address] Care Team Providers Care Greens Tier Name Role Phone John Herrera ARAM Primary Care Provider Encounter Details Date Type Department Care Team (Latest Contact Info) Description 05/16/2025 Lab Requisition [facility] - Main Lab [address] [facility] [place] [address] Yared Villa MD [address] [place] [address] Type 2 diabetes mellitus with [...] Description 08/09/2025 11:00 AM EST Office Visit [facility] Hematology Oncology [address] [place] [address] Ceasar Colon MD [address] [place] [address] documented as of this encounter Procedures Procedure Name Priority Date/Time Associated Diagnosis Comments COMPLETE BLOOD COUNT Routine 05/16/2025 5:30 AM EDT Type 2 diabetes mellitus with other diabetic kidney complication (CMS/HCC V24, CMS/HCC V28) Essential (primary) hypertension Muscle weakness (generalized) Other hyperlipidemia COMPREHENSIVE METABOLIC PANEL Routine 05/16/2025 5:30 AM EDT Type 2 diabetes mellitus with other diabetic kidney complication ([facility] [place] V24, [facility] V28) Essential (primary) hypertension Muscle weakness (generalized) Other hyperlipidemia documented in this encounter Results * (ABNORMAL) Comprehensive metabolic panel (05/16/2025 5:30 AM EDT) Sodium 141 133 - 145 mmol/L LAB CHEMISTRY METHOD 05/16/2025 1:30 PM [facility] Potassium 3.9 3.5 - 5.5 [...] LAB CHEMISTRY METHOD 05/16/2025 1:30 PM EDT [facility] Calcium 8.8 8.5 - 10.5 mg/dL LAB CHEMISTRY METHOD 05/16/2025 1:30 PM EDT [facility] AST (SGOT) 21 10 - 42 unit/L LAB CHEMISTRY METHOD 05/16/2025 1:30 PM EDT [facility] ALT (SGPT) 14 10 - 60 unit/L LAB CHEMISTRY METHOD 05/16/2025 1:30 PM EDT [facility] Alkaline Phosphatase 94 42 - 121 unit/L LAB CHEMISTRY METHOD 05/16/2025 1:30 PM EDT [facility] Total Protein 5.7(L) 6.0 - 8.0 g/dL LAB CHEMISTRY METHOD 05/16/2025 1:30 PM EDT [facility] Albumin 2.8(L) 3.2 - 5.0 g/dL LAB CHEMISTRY METHOD 05/16/2025 1:30 PM EDT [facility] Total Bilirubin 0.4 0.0 - 1.4 mg/dL LAB CHEMISTRY METHOD 05/16/2025 1:30 PM T [facility] Blood Venous blood specimen / Unknown 05/16/2025 5:30 AM EDT 05/16/2025 11:19 AM EDT us Yared Villa MD LAB BLOOD ORDERABLES Final Resu lt [facility] [address] [place] [address], [place] [phone] * (ABNORMAL) Complete blood count (05/16/2025 5:30 AM EDT) WBC 5.1 4.8 - 10.8 K/[facility] LAB HEMETOLOGY METHOD 05/16/2025 12:54 PM EDT [facility] RBC 3.50(L) 3.80 - 4.80 M/mcL LAB HEMETOLOGY METHOD 05/16/2025 12:54 PM EDT [facility] Hemoglobin 10.7(L) 11.5 - 16.0 g/dL LAB HEMETOLOGY METHOD 05/16/2025 12:54 PM [facility] Hematocrit 34.5(L) 35.0 - 47.0 % LAB HEMETOLOGY METHOD 05/16/2025 12:54 PM [facility] MCV 100.0(H) 79.0 - 98.0 FL LAB HEMETOLOGY METHOD 05/16/2025 12:54 PM [facility] MCH 31.0 27.0 - 32.0 pcg LAB HEMETOLOGY METHOD 05/16/2025 12:54 PM [facility] MCHC 31.0(L) 32.0 - 37.0 g/dL LAB HEMETOLOGY METHOD 05/16/2025 12:54 PM [facility] RDW 12.7 11.0 - 15.0 % LAB HEMETOLOGY METHOD 05/16/2025 12:54 PM [facility] Platelets 241 130 - 400 K/mcL LAB HEMETOLOGY METHOD 05/16/2025 12:54 PM [facility] MPV 11.1(H) 7.0 - 11.0 FL LAB HEMETOLOGY METHOD 05/16/2025 12:54 PM [facility] NRBC 0.0 <1.0 % LAB HEMETOLOGY METHOD 05/16/2025 12:54 PM [facility] NRBC Absolute 0.00 <0.10 K/mcL LAB HEMETOLOGY METHOD 05/16/2025 12:54 PM [facility] Blood Venous blood specimen / Unknown Venipuncture / Unknown 05/16/2025 5:30 AM EDT 05/16/2025 11:19 AM EDT us Yared Villa MD LAB BLOOD ORDERABLES Final Resu lt [facility] ([facility]) [facility] [address] [place] [address], documented in this encounter Visit Diagnoses Diagnosis Type 2 diabetes mellitus with other diabetic kidney complication (CMS/HCC V24, CMS/HCC V28) Essential (primary) hypertension Unspecified essential hypertension Muscle weakness (generalized) Other hyperlipidemia documented in this encounter Care Teams Greens Tier Relationship Specialty Start Date End Date John Herrera NP [address] [place], [place] PCP - General 05/30/23 documented as of this encounter
--- OUTSIDE RECORDS SUMMARY | 2025-05-17 16:25 | XMS_ITS | Patient Health Record ---
Author Organization [facility] Address [address] [place] [address] Care Team Providers Care Slot Machine Repairer Name Role Phone CHANDU CHISHOLM Primary Care Provider Taiwo Azar [phone] Allergies Allergen (clinical drug ingredient) Drug/Non Drug [...] MG TAKE 1 CAPSULE BY [facility] EVERY MORNING for 30 Active Imodium A-D [...] Problem Status W/U Status Risk Notes Problem 438083264 Encounter for screening for malignant neoplasm of colon (Z12.11) Active confirmed Problem Diarrhea (68695136) Diarrhea (R19.7) Active confirmed Problem Weight loss (298988190) Weight loss (R63.4) Active confirmed Problem Diverticular disease of colon (118845282) Diverticulosis of large intestine without perforation or abscess without bleeding (K57.30) Active confirmed Problem Nausea (139922696) Nausea (R11.0) Active confir med Problem [id number] Preprocedural examination (Z01.818) Active confirmed Problem Ischemic colitis (16496066) Ischemic colitis (K55.9) Active confirmed Problem 20311027 Hypertension, unspecified type (I10) Active confirmed Problem 348316249 Encntr long-term NSAID use (Z79.1) Active confirmed Problem Chronic GERD (K21.9) Active confirmed Vital Signs Blood pressure diastolic 00 mm Hg 08/10/2024 Height 61 in 08/10/2024 Blood pressure systolic 00 mm Hg 08/10/2024 Weight 174 lbs 08/10/2024 BMI 32.87 kg/m2 08/10/2024 Encounters Encounter Location Date [facility] [address] [place] [address] 08/10/2024 Taiwo Mcintosh Diarrhea R19.7 ; Nausea [...] Date MEDICARE OF [place] [address] [place] [address] [id number] KAYLEEN VORA Self - patient is the insured [facility] [address] [address] [place] [address] [id number] KAYLEEN VORA Self - patient is the insured Medical (General) History Medical History History ICD Code Denies MO,CVA,Lung disease,renal disease IDDM Hypertension Kidney stones Negative [...]
--- OUTSIDE RECORDS SUMMARY | 2025-05-17 16:25 | XMS_ITS | Clinical Summary ---
Author Organization [facility] Address [address] [facility] [address] [place] [address] Phone Care Team Providers Care Frame Aligner Name Role Phone John Herrera NP Primary Care Provider [phone] Allergies Active Allergy Reactions Criticality Noted Date [...] PM EST) Hemoglobin A1C 5.4 (4.0-5.6) % [facility] Comment: MONITORING: In known diabetic patients, hemoglobin A1c targets should be discussed with health care provider. DIAGNOSTIC USE: The [place] Diabetes Association (ADA) and the World Health [...] Supplement 1 Testing performed or reported by [facility], a Service of [facility], [address] [place] [address] Niall Pinto MD, Welder Production Line [employer] [facility]# [id number] Blood specimen (specimen) Venous blood / Unknown 10/14/2022 4:03 PM EST 10/14/2022 4:05 PM EST us Karson Law MD LAB BLOOD ORDERABLES Carol rasmussen Result [facility] from Last 3 Months or Most Recently Relevant to Health Maintenance Insurance [employer] [facility] Medicare Care Teams Frame Aligner Relationship Specialty Start Date End Date John Herrera NP [address] [place] [address] PCP - General Nurse Practitioner 09/05/21
--- OUTSIDE RECORDS SUMMARY | 2025-05-17 16:25 | XMS_ITS | Encounter Summary ---
Author Organization [facility] Address [address] [place] [address] Care Team Providers Care Prosthetics Technician Name Role Phone John Herrera ARAM Primary Care Provider Encounter Details Date Type Department Care Team (Late Contact Info) Description 05/15/2025 Lab Requisition [facility] - Main Lab [address] [facility] [place] [address] Yared Villa MD [address] [place] [address] Essential (primary) hypertension; Other hyperlipidemia; [...] Description 08/09/2025 11:00 AM EST Office Visit [facility] Hematology Oncology [address] [place] [address] Ceasar Colon MD [address] [place] [address] documented as of this encounter Procedures Procedure Name Priority Date/Time Associated Diagnosis Comments COMPLETE BLOOD COUNT Routine 05/15/2025 5:12 AM EDT Essential (primary) hypertension Other hyperlipidemia Type 2 diabetes mellitus with other diabetic kidney complication ([facility] V24, [facility] V28) Muscle weakness (generalized) COMPREHENSIVE METABOLIC PANEL Routine 05/15/2025 5:12 AM EDT Essential (primary) hypertension Other hyperlipidemia Type 2 diabetes mellitus with other diabetic kidney complication ([facility] V24, [facility] V28) Muscle weakness (generalized) documented in this encounter Results * (ABNORMAL) Comprehensive metabolic panel (05/15/2025 5:12 AM EDT) Sodium 140 133 - 145 mmol/L LAB CHEMISTRY METHOD 05/15/2025 10:22 AM [facility] Potassium 4.2 3.5 - 5.5 mmol/L LAB CHEMISTRY METHOD 05/15/2025 10:22 AM [facility] Chloride 107 96 - 110 mmol/L LAB CHEMISTRY METHOD 05/15/2025 10:22 AM [facility] CO2 28 21 - 32 mmol/L LAB CHEMISTRY METHOD 05/15/2025 10:22 AM [facility] Anion Gap 5 3 - 11 LAB CHEMISTRY METHOD 05/15/2025 10:22 AM [facility] Glucose 96 70 - 100 mg/dL LAB CHEMISTRY METHOD 05/15/2025 10:22 AM [facility] BUN 9 5 - 25 mg/dL LAB CHEMISTRY METHOD 05/15/2025 10:22 AM [facility] Creatinine 1.34(H) 0.50 - 1.10 mg/dL LAB CHEMISTRY METHOD 05/15/2025 10:22 AM [facility] eGFR 41(L) >=60 mL/min/1. 73m2 LAB CHEMISTRY METHOD 05/15/2025 10:22 AM [facility] Comment:Calculation based on the Chronic Kidney Disease Epidemiology Collaboration (CKD-EPI) equation refit without adjustment for race. BUN/Creatinine Ratio 6.7 LAB CHEMISTRY METHOD 05/15/2025 10:22 AM [facility] Calcium 8.8 8.5 - 10.5 mg/dL LAB CHEMISTRY METHOD 05/15/2025 10:22 AM [facility] AST (SGOT) 15 10 - 42 unit/L LAB CHEMISTRY METHOD 05/15/2025 10:22 AM [facility] ALT (SGPT) 13 10 - 60 unit/L LAB CHEMISTRY METHOD 05/15/2025 10:22 AM [facility] Alkaline Phosphatase 77 42 - 121 unit/L LAB CHEMISTRY METHOD 05/15/2025 10:22 AM [facility] Total Protein 5.2(L) 6.0 - 8.0 g/dL LAB CHEMISTRY METHOD 05/15/2025 10:22 AM [facility] Albumin 2.7(L) 3.2 - 5.0 g/dL LAB CHEMISTRY METHOD 05/15/2025 10:22 AM [facility] Total Bilirubin 0.3 0.0 - 1.4 mg/dL LAB CHEMISTRY METHOD 05/15/2025 10:22 AM [facility] Blood Venous blood specimen / Unknown Venipuncture / Unknown 05/15/2025 5:12 AM EDT 05/15/2025 8:47 AM EDT us Yared Villa MD LAB BLOOD ORDERABLES Final Resu lt [facility] [address] [place] [address], * (ABNORMAL) Complete blood count (05/15/2025 5:12 AM EDT) WBC 5.3 4.8 - 10.8 K/mcL LAB HEMETOLOGY METHOD 05/15/2025 9:47 AM EDT [facility] RBC 3.30(L) 3.80 - 4.80 M/mcL LAB HEMETOLOGY METHOD 05/15/2025 9:47 AM [facility] Hemoglobin 10.1(L) 11.5 - 16.0 g/dL LAB HEMETOLOGY METHOD 05/15/2025 9:47 AM [facility] Hematocrit 31.8(L) 35.0 - 47.0 % LAB HEMETOLOGY METHOD 05/15/2025 9:47 AM [facility] MCV 97.5 79.0 - 98.0 FL LAB HEMETOLOGY METHOD 05/15/2025 9:47 AM [facility] MCH 31.0 27.0 - 32.0 pcg LAB HEMETOLOGY METHOD 05/15/2025 9:47 AM [facility] MCHC 31.8(L) 32.0 - 37.0 g/dL LAB HEMETOLOGY METHOD 05/15/2025 9:47 AM [facility] RDW 12.7 11.0 - 15.0 % LAB HEMETOLOGY METHOD 05/15/2025 9:47 AM [facility] Platelets 257 130 - 400 K/mcL LAB HEMETOLOGY METHOD 05/15/2025 9:47 AM [facility] MPV 10.9 7.0 - 11.0 FL LAB HEMETOLOGY METHOD 05/15/2025 9:47 AM [facility] NRBC 0.0 <1.0 % LAB HEMETOLOGY METHOD 05/15/2025 9:47 AM [facility] NRBC Absolute 0.00 <0.10 K/mcL LAB HEMETOLOGY METHOD 05/15/2025 9:47 AM [facility] Blood Venous blood specimen / Unknown Venipuncture / Unknown 05/15/2025 5:12 AM EDT 05/15/2025 8:47 AM EDT us Yared Villa MD LAB BLOOD ORDERABLES Final Resu lt [facility] ([facility]) [facility] [address] [place] [address], documented in this encounter Visit Diagnoses Diagnosis Essential (primary) hypertension Unspecified essential hypertension Other hyperlipidemia Type 2 diabetes mellitus with other diabetic kidney complication (CMS/HCC V24, CMS/HCC V28) Muscle weakness (generalized) documented in this encounter Care Teams Prosthetics Technician Relationship Specialty Start Date End Date John Herrera NP [address] [place], [place] PCP - General 05/30/23 documented as of this encounter
--- OUTSIDE RECORDS SUMMARY | 2025-05-17 16:25 | XMS_ITS | Encounter Summary ---
Author Organization [facility] Address [address] [place] [address] Care Team Providers Care Collection Correspondent Name Role Phone John Herrera MD Primary Care Provider Encounter Details Date Type Department Care Team (Late st Contact Info) Description 02/03/2024 Scanned Document [facility] Department of Internal Medicine & Nephrology [address] [address] Karson Law MD [address] [place] [address] [phone] Social History Tobacco Use Types Packs/Day Years [...] Description 12/19/2025 1:00 PM EDT Office Visit [facility] Department of Internal Medicine & Nephrology [place] [address] [place] [address] Karson Law MD [address] [place] [address] [phone] documented as of this encounter Visit Diagnoses Not on filedocumented in this encounter Care Teams Collection Correspondent Relationship Specialty Start Date End Date John Herrera MD [address] [facility] [place] [address] PCP - General Family Medicine 02/03/24 documented as of this encounter
== END 2025-05-17 15:28 | disposition home or self-care (01) ==
LOC: HO.HAP 15:27
PROVIDERS: Visit Provider Nurse Practitioner Family
DX: Z46.1 Encounter for fitting and adjustment of hearing aid (principal); H90.3 Sensorineural hearing loss, bilateral
CPT/HCPCS: 92593

== ENCOUNTER → 2025-06-07 23:59 | Outpatient (BNV) | payer MEDICARE, OTHER, SELFPAY | PROVIDERS: PCP Nurse Practitioner Family; Visit Provider Nurse Practitioner Family | DX: K52.9 Noninfective gastroenteritis and colitis, unspecified (principal); E11.9 Type 2 diabetes mellitus without complications | CPT/HCPCS: G0180 ==

== ENCOUNTER 2025-06-29 09:29 | Outpatient (REF) | payer SELFPAY | END 2025-06-29 09:30 | disposition home or self-care (01) | LOC: HO.HAP 09:29 | PROVIDERS: Visit Provider Nurse Practitioner Family | DX: Z13.89 Encounter for screening for other disorder (principal) ==

== ENCOUNTER 2025-06-29 11:01 | Outpatient (REF) | payer MEDICARE, OTHER, SELFPAY ==
[2025-06-29 13:29] LABS: MANUAL DIFF FLAG NO
[2025-06-29 13:37] LABS: Hematocrit 34.8 % (37.0-47.0); Hemoglobin 11.4 g/dl (12.0-16.0); Imm Gran Abs Auto 0.02 X10*3/uL (0.00-0.03); Imm Gran Pct Auto 0.4 % (0.0-0.4); Lymphocytes Absolute Auto 1.4 X10*3/uL (1.2-4.9); Mean Corpuscular HGB Conc 32.8 g/dl (31.0-35.0); Mean Corpuscular Hemoglobin 30.2 pg (27.0-33.0); Mean Corpuscular Volume 92.3 fL (80.0-98.0); NRBC Abs Auto 0.000 X10*3/uL (0.0-0.012); NRBC Pct Auto 0.0 /100WBC (0.0-0.2); Platelet Count 209 X10*3/uL (160-400); Red Blood Count 3.77 X10*6/uL (4.20-5.50); White Blood Count 4.8 X10*3/uL (4.8-10.8)
== END 2025-06-29 11:02 | disposition home or self-care (01) ==
LOC: HO.HMGCLDS 11:01
PROVIDERS: PCP Nurse Practitioner Family; Visit Provider Nurse Practitioner Family
DX: E83.42 Hypomagnesemia (principal); K83.8 Other specified diseases of biliary tract; R79.89 Other specified abnormal findings of blood chemistry
CPT/HCPCS: 36415; 85025

== ENCOUNTER 2025-06-30 16:08 | Outpatient (REF) | payer SELFPAY | END 2025-06-30 16:09 | disposition home or self-care (01) | LOC: HO.HAP 16:08 | PROVIDERS: Visit Provider Nurse Practitioner Family | DX: Z13.89 Encounter for screening for other disorder (principal) ==

== ENCOUNTER 2025-07-04 08:53 | Outpatient (AMB) | payer MEDICARE, OTHER, SELFPAY ==
--- OUTSIDE RECORDS SUMMARY | 2024-03-26 07:20 | XMS_ITS ---
Author Organization [facility] Address [address] [place] [address] Care Team Providers Care Clinical Applications Manager Name Role Phone CHANDU CHISHOLM Primary Care Provider Taiwo Aazr Unavailable [phone] REASON FOR VISIT diarrhea,wt loss,nausea Problems Problem Type SNOMED Code ICD Code Onset Dates Problem Status W/U Status Risk Notes Problem Diverticular disease of colon (293791578) Diverticulosis of large intestine without perforation or abscess without bleeding (K57.30) Active confirmed Encounters Encounter Location Date Provider Diagnosis [facility] [place] [address] [place], [place] [phone] 03/26/2024 Taiwo Mcintosh Diarrhea R19.7 ; W [...] NANCY VORA CDOB: 7 (80 yo F)Acc No.[id number]:03/26/2024 EGD and COL/MAC Patient: NANCY COHEN Provider: Domo Mcintosh MD :1945 A ge:78 Y S ex:Female Date:03/26/2024 Address:[address] [address] , [id number] Pcp:CHANDU CHISHOLM Subjective: * Chief Complaints: * [...] FLW-UP 10 YRS DOCD, Modifiers: 8P , 75447 UPPER GI ENDOSCOPY, BIOPSY * * The named appointment provid er may or may not be the originator of this progress note, and it is not deemed complete until electronically signed by the appointment provider. Sign off status: Pending * Provider: Domo Mcintosh MD Date: 0 03/26/2024 Generated for Leidy elaine/Manolo/Jennsmitting on: 1 08:57 AM EDT
--- OUTSIDE RECORDS SUMMARY | 2025-07-04 08:57 | XMS_ITS | Clinical Summary ---
Author Organization [facility] Address [address] [place] [address] Care Team Providers Care Dipper And Baker Name Role Phone John Herrera Primary Care Provider [phone] Allergies Active Allergy Reactions Criticality Noted Date [...] age to complete this topic Care Teams Dipper And Baker Relationship Specialty Start Date End Date John Herrera [address] [facility] [place] [address] PCP - General Family Medicine 05/30/23
--- OUTSIDE RECORDS SUMMARY | 2025-07-04 08:57 | XMS_ITS | Encounter Summary ---
Author Organization [facility] Address [address] [place] [address] Phone Care Team Providers Care Sheep Rancher Name Role Phone John Herrera NP Primary Care Provider [phone] Reason for Visit * Reason Comments Med Refill Encounter Details Date Type Department Care Team (Late st Contact Info) Description 11/15/2023 Refill [facility] [address] [place] [phone] Karson Law MD Social History Tobacco Use [...] on filedocumented in this encounter Care Teams Sheep Rancher Relationship Specialty Start Date End Date John Herrera NP [address] [facility] [place] [address] PCP - General Nurse Practitioner 09/05/21 documented as of this encounter
--- OUTSIDE RECORDS SUMMARY | 2025-07-04 08:58 | XMS_ITS | Patient Health Record ---
Author Organization [facility] Address [address] [place] [address] Care Team Providers Care Custodian Name Role Phone CHANDU CHISHOLM Primary Care Provider Taiwo Azar [phone] Allergies Allergen (clinical drug ingredient) Drug/Non Drug [...] Omeprazole 20 MG TAKE 1 CAPSULE BY [facility] EVERY MORNING; Duration: 30 Active Imodium A-D 2 MG 1 or 2 tablets Orall y Every 4 to 6 hours as needed for diarrhea 02/25/2024 Active Levothyroxine Sodium 75 MCG 1 tablet on an empty stomach in the morning Orally Once a day; Duration: 30 day(s) Active Ondansetron 4 MG 1 tablet on the tong ue and allow to dissolve Orally Every 4 to 6 hours as needed for nausea; Duration: 30 day(s) 02/25/2024 Active buPROPion HCl 100 MG 1 tablet Orally Twi ce a day; Duration: 30 day(s) Active potassium 1 tab Oral; Duration : 14 days Active Magnesium 300 MG 1 capsule with a michael l Orally Once a day; Duration: 30 day(s) Not-Taking Calcium 1 tab Oral; Duration : 14 days Active Gabapentin 100 MG Oral; Duration: 30 Active Januvia 100 MG 1 tablet Orally Once a day; Duration: 30 day(s) Active Lantus 100 UNIT/ML 20-25 units Subcutaneous once a day Active Atorvastatin Calcium 10 MG 1 tablet Orally Once a day; Duration: 30 day(s) Active Carvedilol 25 MG 1 tablet with food Orally Twice a day; Duration: 30 day(s) Active Immunizations Vaccine Route Administration [...] Problem Status W/U Status Risk Notes Problem Screening for malignant neoplasm of colon (701913054) Encounter for screening for malignant neoplasm of colon (Z12.11) Active confirmed Problem Diarrhea (91879553) Diarrhea (R19.7) Active con firmed Problem Weight loss (707372503) Weight loss (R63.4) Active confirmed Problem Diverticular disease of colon (686611143) Diverticulosis of large intestine without perforation or abscess without bleeding (K57.30) Active confirmed Problem Nausea (909953348) Nausea (R11.0) Active confir med Problem Preprocedural examination (623555135401528) Preprocedural examination (Z01.818) Active confirmed Problem Ischemic colitis (38867886) Ischemic colitis (K55.9) Active confirmed Problem Essential hypertension (96700576) Hypertension, unspecified type (I10) Active confirmed Problem FDC current use of non-steroidal anti-inflammatory drug (378102993810257) Encntr long-term NSAID use (Z79.1) Active confirmed Problem Gastroesophageal reflux disease (disorder) (204166692) Chronic GERD (K21.9) Active confirmed Vital Signs Blood pressure diastolic 00 mm Hg 08/10/2024 Height 61 in 08/10/2024 Blood pressure systolic 00 mm Hg 08/10/2024 Weight 174 lbs 08/10/2024 BMI 32.87 kg/m2 08/10/2024 Encounters Encounter Location Date Provider Diagnosis [facility] [address] [place] [address] 08/10/2024 Taiwo Mcintosh Diarrhea R19.7 ; Nausea [...] Start Date Coverage End Date MEDICARE OF [place] [address] [place] [address] [id number] KAYLEEN VORA Self - patient is the insured HUMAN [address] [address] [place] [address] [id number] KAYLEEN VOAR Self - patient is the insured Medical (General) History Medical History History ICD Code Denies AL,CVA,Lung disease,renal disease IDDM Hypertension Kidney stones Negative [...]
--- OUTSIDE RECORDS SUMMARY | 2025-07-04 08:58 | XMS_ITS | Encounter Summary ---
Author Organization [facility] Address [address] [place] [address] Care Team Providers Care Special Client Bus Driver Name Role Phone John Herrera ARAM Primary Care Provider Encounter Details Date Type Department Care Team (Late Contact Info) Description 05/18/2025 Lab Requisition [facility] - Main Lab [address] [facility] [place] [address] Yared Villa MD [address] [place] [address] Essential (primary) hypertension; Type 2 diabetes mellitus with other diabetic kidney complication (CMS/HCC V24, CMS/HCC V28); Other hyperlipidemia; Muscle weakness (generalized) Social History Tobacco Use [...] 08/09/2025 11:00 AM EST Office Visit [facility] Hematology Oncology [address] [place] [phone] Ceasar Colon MD [address] [place], [place] [phone] documented as of this encounter Procedures Procedure Name Priority Date/Time Associated Diagnosis Comments COMPLETE BLOOD COUNT Routine 05/19/2025 5:10 AM EDT Essential (primary) hypertension Type 2 diabetes mellitus with other diabetic kidney complication (CMS/HCC V24, [facility] V28) Other hyperlipidemia Muscle weakness (generalized) BASIC METABOLIC PANEL Routine 05/19/2025 5:10 AM EDT Essential (primary) hypertension Type 2 diabetes mellitus with other diabetic kidney complication ([facility] V24, [facility] V28) Other hyperlipidemia Muscle weakness (generalized) documented in this encounter Results * (ABNORMAL) Basic metabolic panel (05/19/2025 5:10 AM EDT) [facility] Sodium 139 133 - 145 mmol/L LAB CHEMISTRY METHOD 05/19/2025 10:55 AM [facility] Potassium 5.1 3.5 - 5.5 mmol/L LAB CHEMISTRY METHOD 05/19/2025 10:55 AM [facility] Comment:Hemolysis present Chloride 108 96 - 110 mmol/L LAB CHEMISTRY METHOD 05/19/2025 10:55 AM [facility] CO2 25 21 - 32 mmol/L LAB CHEMISTRY METHOD 05/19/2025 10:55 AM [facility] Anion Gap 6 3 - 11 LAB CHEMISTRY METHOD 05/19/2025 10:55 AM [facility] Glucose 88 70 - 100 mg/dL LAB CHEMISTRY METHOD 05/19/2025 10:55 AM [facility] BUN 15 5 - 25 mg/dL LAB CHEMISTRY METHOD 05/19/2025 10:55 AM [facility] Creatinine 1.21(H) 0.50 - 1.10 mg/dL LAB CHEMISTRY METHOD 05/19/2025 10:55 AM [facility] eGFR 46(L) >=60 mL/min/1. 73m2 LAB CHEMISTRY METHOD 05/19/2025 10:55 AM [facility] Comment:Calculation based on the Chronic Kidney Disease Epidemiology Collaboration (CKD-EPI) equation refit without adjustment for race. BUN/Creatinine Ratio 12.4 LAB CHEMISTRY METHOD 05/19/2025 10:55 AM EDT [facility] Calcium 8.9 8.5 - 10.5 mg/dL LAB CHEMISTRY METHOD 05/19/2025 10:55 AM [facility] Blood Venous blood specimen / Unknown Venipuncture / Unknown 05/19/2025 5:10 AM EDT 05/19/2025 10:15 AM EDT us Yared Villa MD LAB BLOOD ORDERABLES Final Resu lt [facility] [address] [place] [address], * (ABNORMAL) Complete blood count (05/19/2025 5:10 AM EDT) WBC 6.0 4.8 - 10.8 K/mcL LAB HEMETOLOGY METHOD 05/19/2025 10:30 AM [facility] RBC 3.40(L) 3.80 - 4.80 M/mcL LAB HEMETOLOGY METHOD 05/19/2025 10:30 AM [facility] Hemoglobin 10.7(L) 11.5 - 16.0 g/dL LAB HEMETOLOGY METHOD 05/19/2025 10:30 AM [facility] Hematocrit 33.6(L) 35.0 - 47.0 % LAB HEMETOLOGY METHOD 05/19/2025 10:30 AM [facility] MCV 98.2(H) 79.0 - 98.0 FL LAB HEMETOLOGY METHOD 05/19/2025 10:30 AM [facility] MCH 31.3 27.0 - 32.0 pcg LAB HEMETOLOGY METHOD 05/19/2025 10:30 AM [facility] MCHC 31.8(L) 32.0 - 37.0 g/dL LAB HEMETOLOGY METHOD 05/19/2025 10:30 AM EDT [facility] RDW 12.6 11.0 - 15.0 % LAB HEMETOLOGY METHOD 05/19/2025 10:30 AM EDT [facility] Platelets 213 130 - 400 K/mcL LAB HEMETOLOGY METHOD 05/19/2025 10:30 AM EDT [facility] MPV 11.5(H) 7.0 - 11.0 FL LAB HEMETOLOGY METHOD 05/19/2025 10:30 AM EDT [facility] NRBC 0.0 <1.0 % LAB HEMETOLOGY METHOD 05/19/2025 10:30 AM EDT [facility] NRBC Absolute 0.00 <0.10 K/mcL LAB HEMETOLOGY METHOD 05/19/2025 10:30 AM EDT [facility] Blood Venous blood specimen / Unknown Venipuncture / Unknown 05/19/2025 5:10 AM EDT 05/19/2025 10:20 AM EDT us Yared Villa MD LAB BLOOD ORDERABLES Final Resu lt [facility] [address] [place] [address], documented in this encounter Visit Diagnoses Diagnosis Essential (primary) hypertension Unspecified essential hypertension Type 2 diabetes mellitus with other diabetic kidney complication (CMS/HCC V24, CMS/HCC V28) Other hyperlipidemia Muscle weakness (generalized) documented in this encounter Care Teams Special Client Bus Driver Relationship Specialty Start Date End Date John Herrera NP [address] [place], [place] PCP - General 05/30/23 documented as of this encounter
--- OUTSIDE RECORDS SUMMARY | 2025-07-04 08:58 | XMS_ITS | Clinical Summary ---
Author Organization [facility] Address [address] [place] [address] Care Team Providers Care Radioactivity Technician Name Role Phone John Herrera MD [...] Mass Index - - Plan of Treatment Health Maintenance Due Date Last Done Comments Advance Care Planning 1945 Hepatitis C Virus Screening 1945 Foot Exam [...] Patients (1 - 1-dose 75+ series) 2022 Hemoglobin A1C 02/07/2025 08/10/2024 Influenza Vaccine 04/22/2025 COVID-19 Vaccine ( - 2023-2 5 season) 2025 Creatinine with GFR 08/10/2025 08/10/2024 Hepatitis B [...] diabetes: <7.0 08/10/2024 2:47 PM EST 08/10/2024 Luis [facility] K[facility]) - 08/11/2024 6:10 AM EST Performed at: - [address] [id number] Heat Treatment Technician: Suzi Stern MD, Phone: [phone] us Karson Law MD LAB BLOOD ORDERABLES Carol l Result [facility] [place]) [facility] 1 * (ABNORMAL) BASIC METABOLIC PANEL [...] AM EST Performed at: 01 - [facility] [address] [id number] Heat Treatment Technician: Suzi Stern MD, Phone: [phone] Karson Law MD LAB BLOOD ORDERABLES Carol l Result [facility] ([facility]) [facility] 1 from Last 3 Months or Most Recently Relevant to Health Maintenance Insurance MEDICARE PART A & B [facility] SUPPLEMENT ONLY Care Teams Radioactivity Technician Relationship Specialty Start Date End Date John Herrera MD [address] [place] [address] PCP - General Family Medicine 02/03/24
--- OUTSIDE RECORDS SUMMARY | 2025-07-04 08:58 | XMS_ITS | Encounter Summary ---
Author Organization [facility] Address [address] [place] [address] Care Team Providers Care Chemical Engineering Professor Name Role Phone John Herrera MD Primary Care Provider Encounter Details Date Type Department Care Team (Late st Contact Info) Description 02/03/2024 Scanned Document [facility] Department of Internal Medicine & Nephrology [place] [address] [place] [phone] Karson Law MD [address] [address] Social History Tobacco Use Types Packs/Day Years [...] on filedocumented in this encounter Care Teams Chemical Engineering Professor Relationship Specialty Start Date End Date John Herrera MD [address] [facility] [place] [address] PCP - General Family Medicine 02/03/24 documented as of this encounter
--- OUTSIDE RECORDS SUMMARY | 2025-07-04 08:58 | XMS_ITS | Encounter Summary ---
Author Organization [facility] Address [address] [place] [address] Care Team Providers Care Disease And Insect Control Boss Name Role Phone John Herrera ARAM Primary Care Provider Encounter Details Date Type Department Care Team (Latest Contact Info) Description 05/16/2025 Lab Requisition [facility] - Main Lab [address] [facility] [place] [address] Yared Villa MD [address] [place] [address] Type 2 diabetes mellitus with [...] Description 08/09/2025 11:00 AM EST Office Visit [facility] Hematology Oncology [address] [place] [address] Ceasar Colon MD [address] [place] [address] documented as of this encounter Procedures Procedure Name Priority Date/Time Associated Diagnosis Comments COMPLETE BLOOD COUNT Routine 05/16/2025 5:30 AM EDT Type 2 diabetes mellitus with other diabetic kidney complication (CMS/HCC V24, CMS/HCC V28) Essential (primary) hypertension Muscle weakness (generalized) Other hyperlipidemia COMPREHENSIVE METABOLIC PANEL Routine 05/16/2025 5:30 AM EDT Type 2 diabetes mellitus with other diabetic kidney complication ([facility] V24, [facility] V28) Essential (primary) hypertension Muscle weakness (generalized) Other hyperlipidemia documented in this encounter Results * (ABNORMAL) Comprehensive metabolic panel (05/16/2025 5:30 AM EDT) Sodium 141 133 - 145 mmol/L LAB CHEMISTRY METHOD 05/16/2025 1:30 PM [facility] Potassium 3.9 3.5 - 5.5 mmol/L LAB CHEMISTRY METHOD 05/16/2025 1:30 PM [facility] Chloride 108 96 - 110 mmol/L LAB CHEMISTRY METHOD 05/16/2025 1:30 PM [facility] CO2 25 21 - 32 mmol/L LAB CHEMISTRY METHOD 05/16/2025 1:30 PM [facility] Anion Gap 8 3 - 11 LAB CHEMISTRY METHOD 05/16/2025 1:30 PM [facility] Glucose 99 70 - 100 mg/dL LAB CHEMISTRY METHOD 05/16/2025 1:30 PM [facility] BUN 11 5 - 25 mg/dL LAB CHEMISTRY METHOD 05/16/2025 1:30 PM [facility] Creatinine 1.24(H) 0.50 - 1.10 mg/dL LAB CHEMISTRY METHOD 05/16/2025 1:30 PM [facility] eGFR 45(L) >=60 mL/min/1. 73m2 LAB CHEMISTRY METHOD 05/16/2025 1:30 PM [facility] Comment:Calculation based on the Chronic [...] lt [facility] [address] [place] [address], [place] [phone] * (ABNORMAL) Complete blood count (05/16/2025 5:30 AM EDT) WBC 5.1 4.8 - 10.8 K/[facility] LAB HEMETOLOGY METHOD 05/16/2025 12:54 PM EDT [facility] RBC 3.50(L) 3.80 - 4.80 M/mcL LAB HEMETOLOGY METHOD 05/16/2025 12:54 PM EDT [facility] Hemoglobin 10.7(L) 11.5 - 16.0 g/dL LAB HEMETOLOGY METHOD 05/16/2025 12:54 PM [facility] Hematocrit 34.5(L) 35.0 - 47.0 % LAB HEMETOLOGY METHOD 05/16/2025 12:54 PM [facility] MCV 100.0(H) 79.0 - 98.0 FL LAB HEMETOLOGY METHOD 05/16/2025 12:54 PM [facility] MCH 31.0 27.0 - 32.0 pcg LAB HEMETOLOGY METHOD 05/16/2025 12:54 PM [facility] MCHC 31.0(L) 32.0 - 37.0 g/dL LAB HEMETOLOGY METHOD 05/16/2025 12:54 PM [facility] RDW 12.7 11.0 - 15.0 % LAB HEMETOLOGY METHOD 05/16/2025 12:54 PM [facility] Platelets 241 130 - 400 K/mcL LAB HEMETOLOGY METHOD 05/16/2025 12:54 PM [facility] MPV 11.1(H) 7.0 - 11.0 FL LAB HEMETOLOGY METHOD 05/16/2025 12:54 PM [facility] NRBC 0.0 <1.0 % LAB HEMETOLOGY METHOD 05/16/2025 12:54 PM [facility] NRBC Absolute 0.00 <0.10 K/mcL LAB HEMETOLOGY METHOD 05/16/2025 12:54 PM [facility] Blood Venous blood specimen / Unknown Venipuncture / Unknown 05/16/2025 5:30 AM EDT 05/16/2025 11:19 AM EDT us Yared Villa MD LAB BLOOD ORDERABLES Final Resu lt [facility] [address] [place] [address], documented in this encounter Visit Diagnoses Diagnosis Type 2 diabetes mellitus with other diabetic kidney complication (CMS/HCC V24, CMS/HCC V28) Essential (primary) hypertension Unspecified essential hypertension Muscle weakness (generalized) Other hyperlipidemia documented in this encounter Care Teams Disease And Insect Control Boss Relationship Specialty Start Date End Date John Herrera NP [address] [place], [place] PCP - General 05/30/23 documented as of this encounter
--- OUTSIDE RECORDS SUMMARY | 2025-07-04 08:58 | XMS_ITS | Clinical Summary ---
Author Organization [facility] Address [address] [place] [address] Phone Care Team Providers Care Manager International Name Role Phone John Herrera NP Primary [...] Encounters Date Type Department Care Team Description 05/18/2025 Lab Requisition [facility] - Main Lab [address] [facility] [place] [address] Yared Villa MD Essential (primary) hypertension; Type 2 diabetes mellitus with other diabetic kidney complication ([facility] V24, [facility] V28); Other hyperlipidemia; Muscle weakness (generalized) 05/16/[address] [facility] Lab [address] [place] [address] Yared Villa MD Type 2 diabetes mellitus with other diabetic kidney complication ([facility] V24, [facility] V28); Essential (primary) hypertension; Muscle weakness (generalized); Other hyperlipidemia 05/15/[address] [facility] Lab [address] [place] [address] Yared Villa MD Essential (primary) hypertension; Other hyperlipidemia; Type 2 diabetes mellitus with other diabetic kidney complication ([facility] V24, [facility] V28); Muscle weakness (generalized) from Last 3 [...] 08/09/2025 11:00 AM EST Office Visit [facility] Hematology Oncology [address] [place] [id number] Ceasar Colon MD [address] [place] [address] Health Maintenance Due Date Last Done Comments [...] COVID-19 Vaccine (7 - Pfizer risk season) 2025 06/14/2024, 06/24/2023, 05/14/2022, Additional history exists Influenza Vaccine (#1) 2025 , 06/24/2023, 05/14/2022, Additional history exists Diabetes: Annual GFR (Glomerular Filtration Rate) 05/19/2026 05/19/2025, 05/16/2025, 05/15/2025 Hypertension/CHF/CAD Annual BMP Blood Test 05/19/2026 05/19/2025, 05/16/2025, 05/15/2025 Pneumococcal Vaccine: 50+ Years Completed [...] Procedure Name Priority Date/Time Associated Diagnosis Comments BASIC METABOLIC PANEL Routine 05/19/2025 5:10 AM EDT Essential (primary) hypertension Type 2 diabetes mellitus with other diabetic kidney complication (CMS/HCC V24, CMS/HCC V28) Other hyperlipidemia Muscle weakness (generalized) COMPLETE BLOOD COUNT Routine 05/19/2025 5:10 AM EDT Essential (primary) hypertension Type 2 diabetes mellitus with other diabetic kidney complication (CMS/HCC V24, CMS/HCC V28) Other hyperlipidemia Muscle weakness (generalized) COMPREHENSIVE METABOLIC PANEL Routine 05/16/2025 5:30 AM [...] Months Results * (ABNORMAL) Complete blood count (05/19/2025 5:10 AM EDT) Only the most recent of3 resultswithin the time period is included. [facility] WBC 6.0 4.8 - 10.8 K/mcL LAB HEMETOLOGY METHOD 05/19/2025 10:30 AM [facility] LAB RBC 3.40(L) 3.80 - 4.80 M/mcL LAB HEMETOLOGY METHOD 05/19/2025 10:30 AM [facility] LAB Hemoglobin 10.7(L) 11.5 - 16.0 g/dL LAB HEMETOLOGY METHOD 05/19/2025 10:30 AM [facility] LAB Hematocrit 33.6(L) 35.0 - 47.0 % LAB HEMETOLOGY METHOD 05/19/2025 10:30 AM [facility] LAB MCV 98.2(H) 79.0 - 98.0 FL LAB HEMETOLOGY METHOD 05/19/2025 10:30 AM [facility] LAB MCH 31.3 27.0 - 32.0 pcg LAB HEMETOLOGY METHOD 05/19/2025 10:30 AM [facility] LAB MCHC 31.8(L) 32.0 - 37.0 g/dL LAB HEMETOLOGY METHOD 05/19/2025 10:30 AM [facility] LAB RDW 12.6 11.0 - 15.0 % LAB HEMETOLOGY METHOD 05/19/2025 10:30 AM [facility] LAB Platelets 213 130 - 400 K/mcL LAB HEMETOLOGY METHOD 05/19/2025 10:30 AM [facility] LAB MPV 11.5(H) 7.0 - 11.0 FL LAB HEMETOLOGY METHOD 05/19/2025 10:30 AM [facility] LAB NRBC 0.0 <1.0 % LAB HEMETOLOGY METHOD 05/19/2025 10:30 AM [facility] LAB NRBC Absolute 0.00 <0.10 K/[facility] LAB HEMETOLOGY METHOD 05/19/2025 10:30 AM [facility] LAB Blood Venous blood specimen / Unknown Venipuncture / Unknown 05/19/2025 5:10 AM EDT 05/19/2025 10:20 AM EDT us Yared Villa MD LAB BLOOD ORDERABLES Final Resu lt [facility] [address] [place] [address], [place] [phone] * (ABNORMAL) Basic metabolic panel (05/19/2025 5:10 AM EDT) Sodium 139 133 - 145 mmol/L LAB CHEMISTRY METHOD 05/19/2025 10:55 AM [facility] Potassium 5.1 3.5 - 5.5 mmol/L LAB CHEMISTRY METHOD 05/19/2025 10:55 AM [facility] LAB Comment:Hemolysis present Chloride 108 96 - 110 mmol/L LAB CHEMISTRY METHOD 05/19/2025 10:55 AM [facility] CO2 25 21 - 32 mmol/L LAB CHEMISTRY METHOD 05/19/2025 10:55 AM [facility] Anion Gap 6 3 - 11 LAB CHEMISTRY METHOD 05/19/2025 10:55 AM [facility] Glucose 88 70 - 100 mg/dL LAB CHEMISTRY METHOD 05/19/2025 10:55 AM [facility] BUN 15 5 - 25 mg/dL LAB CHEMISTRY METHOD 05/19/2025 10:55 AM [facility] Creatinine 1.21(H) 0.50 - 1.10 mg/dL LAB CHEMISTRY METHOD 05/19/2025 10:55 AM [facility] LAB eGFR 46(L) >=60 mL/min/1. 73m2 LAB CHEMISTRY METHOD 05/19/2025 10:55 AM [facility] LAB Comment:Calculation based on the Chronic Kidney Disease Epidemiology Collaboration (CKD-EPI) equation refit without adjustment for race. BUN/Creatinine Ratio 12.4 LAB CHEMISTRY METHOD 05/19/2025 10:55 AM EDT [facility] Calcium 8.9 8.5 - 10.5 mg/dL LAB CHEMISTRY METHOD 05/19/2025 10:55 AM EDT [facility] Blood Venous blood specimen / Unknown Venipuncture / Unknown 05/19/2025 5:10 AM EDT 05/19/2025 10:15 AM EDT us Yared Villa MD LAB BLOOD ORDERABLES Final Resu lt [facility] [address] [place] [address], [place] [phone] * (ABNORMAL) Comprehensive metabolic panel (05/16/2025 5:30 AM EDT) Only the most recent of2 resultswithin the time period is included. Sodium 141 133 - 145 mmol/L LAB CHEMISTRY METHOD 05/16/2025 1:30 PM [facility] Potassium 3.9 3.5 - 5.5 mmol/L LAB CHEMISTRY METHOD 05/16/2025 1:30 PM [facility] Chloride 108 96 - 110 mmol/L LAB CHEMISTRY METHOD 05/16/2025 1:30 PM T [facility] CO2 25 21 - [...] g/dL LAB CHEMISTRY METHOD 05/16/2025 1:30 PM [facility] Albumin 2.8(L) 3.2 - 5.0 g/dL LAB CHEMISTRY METHOD 05/16/2025 1:30 PM [facility] Total Bilirubin 0.4 0.0 - 1.4 mg/dL LAB CHEMISTRY METHOD 05/16/2025 1:30 PM [facility] Blood Venous blood specimen / Unknown 05/16/2025 5:30 AM EDT 05/16/2025 11:19 AM EDT us Yared Villa MD LAB BLOOD ORDERABLES Final Resu lt [facility] [address] [place] [address], from Last 3 Months Insurance MEDICARE H[employer] Care Teams Manager International Relationship Specialty Start Date End Date John Herrera NP [address] [facility] [place] PCP - General 05/30/23
--- OUTSIDE RECORDS SUMMARY | 2025-07-04 08:58 | XMS_ITS | Encounter Summary ---
Author Organization [facility] Address [address] [place] [address] Care Team Providers Care Area Field Worker Name Role Phone John Herrera ARAM Primary Care Provider [phone] Encounter Details Date Type Department Care Team (Late Contact Info) Description 05/15/2025 Lab Requisition [facility] - Main Lab [address] [facility] [place] [address] Yared Villa MD [address] [place] [address] Essential (primary) hypertension; Other hyperlipidemia; [...] Description 08/09/2025 11:00 AM EST Office Visit [facility] Hematology Oncology [address] [place] [address] Ceasar Colon MD [address] [place] [address] documented as of this encounter Procedures Procedure Name Priority Date/Time Associated Diagnosis Comments COMPLETE BLOOD COUNT Routine 05/15/2025 5:12 AM EDT Essential (primary) hypertension Other hyperlipidemia Type 2 diabetes mellitus with other diabetic kidney complication (CMS/[facility] V24, [facility] V28) Muscle weakness (generalized) COMPREHENSIVE METABOLIC PANEL Routine 05/15/2025 5:12 AM EDT Essential (primary) hypertension Other hyperlipidemia Type 2 diabetes mellitus with other diabetic kidney complication ([facility] V24, [facility] V28) Muscle weakness (generalized) documented in this encounter Results * (ABNORMAL) Comprehensive metabolic panel (05/15/2025 5:12 AM EDT) Sodium 140 133 - 145 mmol/L LAB CHEMISTRY METHOD 05/15/2025 10:22 AM [facility] Potassium 4.2 3.5 - 5.5 mmol/L LAB CHEMISTRY METHOD 05/15/2025 10:22 AM [facility] Chloride 107 96 - 110 mmol/L LAB CHEMISTRY METHOD 05/15/2025 10:22 AM [facility] CO2 28 21 - 32 mmol/L LAB CHEMISTRY METHOD 05/15/2025 10:22 AM [facility] Anion Gap 5 3 - 11 LAB CHEMISTRY METHOD 05/15/2025 10:22 AM [facility] LAB Glucose 96 70 - 100 mg/dL LAB CHEMISTRY METHOD 05/15/2025 10:22 AM [facility] BUN 9 5 - 25 mg/dL LAB CHEMISTRY METHOD 05/15/2025 10:22 AM [facility] LAB Creatinine 1.34(H) 0.50 - 1.10 mg/dL LAB CHEMISTRY METHOD 05/15/2025 10:22 AM [facility] LAB eGFR 41(L) >=60 mL/min/1. 73m2 LAB CHEMISTRY METHOD 05/15/2025 10:22 AM [facility] LAB Comment:Calculation based on the Chronic Kidney Disease Epidemiology Collaboration (CKD-EPI) equation refit without adjustment for race. BUN/Creatinine Ratio 6.7 LAB CHEMISTRY METHOD 05/15/2025 10:22 AM [facility] Calcium 8.8 8.5 - 10.5 mg/dL LAB CHEMISTRY METHOD 05/15/2025 10:22 AM [facility] AST (SGOT) 15 10 - 42 unit/L LAB CHEMISTRY METHOD 05/15/2025 10:22 AM [facility] ALT (SGPT) 13 10 - 60 unit/L LAB CHEMISTRY METHOD 05/15/2025 10:22 AM [facility] Alkaline Phosphatase 77 42 - 121 unit/L LAB CHEMISTRY METHOD 05/15/2025 10:22 AM [facility] Total Protein 5.2(L) 6.0 - 8.0 g/dL LAB CHEMISTRY METHOD 05/15/2025 10:22 AM [facility] Albumin 2.7(L) 3.2 - 5.0 g/dL LAB CHEMISTRY METHOD 05/15/2025 10:22 AM [facility] Total Bilirubin 0.3 0.0 - 1.4 mg/dL LAB CHEMISTRY METHOD 05/15/2025 10:22 AM [facility] Blood Venous blood specimen / Unknown Venipuncture / Unknown 05/15/2025 5:12 AM EDT 05/15/2025 8:47 AM EDT us Yared Villa MD LAB BLOOD ORDERABLES Final Resu lt [facility] [address] [place] [address], * (ABNORMAL) Complete blood count (05/15/2025 5:12 AM EDT) WBC 5.3 4.8 - 10.8 K/mcL LAB HEMETOLOGY METHOD 05/15/2025 9:47 AM EDT [facility] RBC 3.30(L) 3.80 - 4.80 M/mcL LAB HEMETOLOGY METHOD 05/15/2025 9:47 AM [facility] LAB Hemoglobin 10.1(L) 11.5 - 16.0 g/dL LAB HEMETOLOGY METHOD 05/15/2025 9:47 AM [facility] LAB Hematocrit 31.8(L) 35.0 - 47.0 % LAB HEMETOLOGY METHOD 05/15/2025 9:47 AM [facility] LAB MCV 97.5 79.0 - 98.0 FL LAB HEMETOLOGY METHOD 05/15/2025 9:47 AM [facility] LAB MCH 31.0 27.0 - 32.0 pcg LAB HEMETOLOGY METHOD 05/15/2025 9:47 AM [facility] LAB MCHC 31.8(L) 32.0 - 37.0 g/dL LAB HEMETOLOGY METHOD 05/15/2025 9:47 AM [facility] LAB RDW 12.7 11.0 - 15.0 % LAB HEMETOLOGY METHOD 05/15/2025 9:47 AM [facility] LAB Platelets 257 130 - 400 K/mcL LAB HEMETOLOGY METHOD 05/15/2025 9:47 AM [facility] LAB MPV 10.9 7.0 - 11.0 FL LAB HEMETOLOGY METHOD 05/15/2025 9:47 AM [facility] LAB NRBC 0.0 <1.0 % LAB HEMETOLOGY METHOD 05/15/2025 9:47 AM [facility] LAB NRBC Absolute 0.00 <0.10 K/mcL LAB HEMETOLOGY METHOD 05/15/2025 9:47 AM [facility] LAB Blood Venous blood specimen / Unknown Venipuncture / Unknown 05/15/2025 5:12 AM EDT 05/15/2025 8:47 AM EDT us Yared Villa MD LAB BLOOD ORDERABLES Final Resu lt [facility] [address] [place] [address], documented in this encounter Visit Diagnoses Diagnosis Essential (primary) hypertension Unspecified essential hypertension Other hyperlipidemia Type 2 diabetes mellitus with other diabetic kidney complication (CMS/HCC V24, CMS/HCC V28) Muscle weakness (generalized) documented in this encounter Care Teams Area Field Worker Relationship Specialty Start Date End Date John Herrera NP [address] [place], [place] PCP - General 05/30/23 documented as of this encounter
--- OUTSIDE RECORDS SUMMARY | 2025-07-04 08:58 | XMS_ITS | Clinical Summary ---
Author Organization [facility] Address [address] [facility] [address] [place] [address] Phone Care Team Providers Care Senior Attorney Name Role Phone John Herrera NP Primary Care Provider [phone] Allergies Active Allergy Reactions Criticality Noted Date [...] with health care provider. DIAGNOSTIC USE: The [place] [employer] (ADA) and the World Health [...] Supplement 1 Testing performed or reported by [facility], a Service of [facility], [address] [place] [address] Niall Pinto MD, [employer] [facility]# [id number] Blood specimen (specimen) Venous blood / Unknown 10/14/2022 4:03 PM EST 10/14/2022 4:05 PM EST us Karson Law MD LAB BLOOD ORDERABLES Carol rasmussen Result [facility] from Last 3 Months or Most Recently Relevant to Health Maintenance Insurance [employer] [place] Medicare Care Teams Senior Attorney Relationship Specialty Start Date End Date John Herrera NP [address] [place] [address] PCP - General Nurse Practitioner 09/05/21
--- NOTE | 2025-07-04 09:01 | AM.OFFVISMDC ---
Intake Vital Signs 07/04/25 09:04 Weight 169 lb BP 120/78 Blood Pressure Location Lt brachial Position Sitting Respiration 16 Pulse 66 Pulse Source Pulse Oximeter Temp 98.0 F Temp Source Oral Pulse Oximetry (%) 99 Oxygen Delivery Method Room Air Intake Visit Reasons: [facility] G0439 forms mailed Allergies cephalexin (From Keflex) Allergy (Severe, Verified 05/10/25 21:17) Swelling ciprofloxacin (From Cipro) Allergy (Severe, Verified 05/10/25 21:17) eye swelling penicillin G Allergy (Severe, Verified 05/10/25 21:17) Angioedema Penicillins Allergy (Severe, Verified 05/10/25 21:17) ANGIOEDEMA doxycycline Allergy (Intermediate, Verified 05/10/25 21:17) Vomiting meloxicam Allergy (Verified 05/10/25 21:17) Unknown NSAIDS (Non-Steroidal Anti-Inflamma Adverse Reaction (Verified 05/10/25 21:17) Unknown Sulfacet-R Allergy (Severe, Uncoded 05/10/25 21:17) Swelling Medication List - Last Reconciled 07/04/25 by NU Claros atorvastatin 10 mg PO BEDTIME bupropion HCl 100 mg PO BEDTIME bupropion HCl 200 mg PO DAILY carvedilol 25 mg PO BID gabapentin 100 mg PO DAILY gabapentin 100 mg PO TID Lantus Solostar U-100 Insulin (insulin glargine) 12 units (0.12 mL) subcut QAM NS levothyroxine 50 mcg PO DAILY@0600 lidocaine 5% 1 patch topical DAILY PRN loperamide 2 mg PO QID PRN magnesium oxide 400 mg PO DAILY 30 days methocarbamol 500 mg PO TID PRN 30 days pen needle, diabetic (Pen Needle) Use to inject insulin once a day sitagliptin phosphate (Januvia) 100 mg PO DAILY HPI [facility] G0439 forms mailed HPI Details AWV: CCC and PPP in scan pile HPI Comments History of Present Illness Details diabetes: pt reports being well controlled, eye exam is up to date, on a statin, sees nephrology. Pt has a Hx of neuropathy. Labs ordered with a1c. Pt understands the s/s of hypoglycemia and how to correct it. [facility] Medical History UTI (urinary tract infection) Acute lower GI bleeding Common bile duct dilation Diarrhea Nausea Colitis Elevated cholesterol Breast cancer Hx of radiation therapy Depression Spinal stenosis Degenerative disc disease, cervical Arthritis Back pain HTN (hypertension) Diabetes Disc degeneration, lumbar Lumbar radiculopathy Osteoarthritis Breast cancer, left Surgical History Hx of bilateral cataract extraction History of knee replacement History of carpal tunnel release of both wrists Hx of cholecystectomy Hx of appendectomy Hx of hysterectomy History of lumpectomy of left breast H/O colonoscopy History of total left knee replacement Social History Household Members: None Housing: House Do you presently have visiting nurse or other home services: No Alcohol intake: current Alcohol intake frequency: 0-2 drinks per day Patient Tobacco Use Status: Former Tobacco user Tobacco use type: Cigarette Years Smoked: 50 years ago e-Cigarette/Vaping Use: Never Used Second Hand Smoke Exposure: No Substance Use Type: Marijuana Advance Directives Date on File: 05/05/25 service: No Current occupational status: employed Current occupation: [employer] Current occupational exposures/hazards: No Cognitive needs: No Hearing needs: No Vision needs: Yes Questionnaire Medicare Wellness Checkup [age] What gender do you identify with?: female During the past 4 weeks, how much have you been bothered by emotional problems such as feeling anxious, depressed, irritable, sad or downhearted, and blue?: slightly During the past 4 weeks, has your physical & emotional health limited your social activities with family, friends, neighbors, or groups?: extremely During the past 4 weeks, how much bodily pain have you generally had?: mild pain During the past 4 weeks, was someone available to help you if you needed & wanted help?: yes, a little During the past 4 weeks, what was the hardest physical activity you could do for at least 2 minutes?: light Can you get to places out of walking distance without help? (For eg., can you travel alone on buses, taxis or drive your car?): Yes Can you go shopping for groceries or clothes without someone's help?: No Can you prepare your own meals?: Yes Because of any health problems, do you need the help of another person with your personal care needs such as eating, bathing, dressing or getting around the house?: No Can you handle your own money without help?: Yes During the past 4 weeks, how would you rate your health in general?: good During the past 4 weeks how have things been going for you?: pretty well Are you having difficulties driving your car?: no Do you always fasten your seat belt when you are in a car?: yes, usually During past 4 weeks, have you been bothered by the following: never: Sexual problems?, Trouble eating well?, Teeth or denture problems? and Problems using the telephone? and sometimes: Falling or dizzy when standing up and Tiredness or fatigue? Have you fallen 2 or more times in the past year?: No Are you afraid of falling?: Yes Are you a smoker?: no During the past 4 weeks, how many drinks of wine, beer, or other alcoholic beverages did you have?: no alcohol at all Do you exercise for about 20 minutes 3 or more times a week?: yes, some of the time Have you been given information to help with the following?: yes: Hazards in your house that might hurt you? and yes: Keeping track of your medications? How often do you have trouble taking medicines the way you have been told to take them?: I always take medicine as prescribed How confident are you that you can control & manage most of your health problems?: very confident What is your race?: White Mini Mental State Exam (MMSE) Orientation What is the (year) (season) (date) (day) (month)?: year, season, date, day and month Where are we (state) (county) (town or city) (hospital) (floor)?: state, county, town or city, hospital/clinic and floor Registration Name of 3 unrelated objects clearly and slowly, then ask patient to repeat all 3 of them. (1st repeat determines score. Make sure they can repeat all three): object 1, object 2 and object 3 Attention & Calculation (CHOOSE ONE) Spell WORLD backwards (DLROW): 5 letters Recall Ask patient to repeat the 3 items from question #3.: object 1, object 2 and object 3 Language Show patient a wristwatch & ask what it is. Repeat for pencil.: watch and pencil Ask the patient to repeat the phrase 'No ifs, ands, or buts' after you.: correct Ask the patient to 'take a piece of paper with their right hand' 'fold paper in half' 'place paper on floor': take paper in right hand, fold paper in half and place paper on floor Print the sentence 'CLOSE YOUR EYES' on a piece. If patient actually closes eyes then score.: followed written direction Give patient a blank piece of paper & ask to write a sentence. Score if it contains a noun & verb.: sentence contains subject and verb Ask patient to copy figure of intersecting pentagons exactly. Score if all 10 angles & 2 intersects are included.: all 10 angles present & 2 are intersected Score Score: 30 Activity of Daily Living Bathing - sponge bath, tub bath or shower: receives no assistance (gets in/out by self, if usual bathing means Toileting - going to the 'toilet room' for urine/bowel elimination & cleaning self/arranging clothes: goes to toilet room, cleans self, arranges clothes without help Transfer: moves in & out of bed and chair without help (may use support object) Continence: controls urination/bowel movements completely by self Feeding: feeds self without help Total Score: 0 Information obtained from: patient Using telephone: independent Traveling: independent Shopping: independent Preparing meals: independent Housework: independent Taking medicine: independent Managing money: independent PHQ-9 Over the last 2 weeks, how often have you been bothered by any of the following problems? 1. Little interest or pleasure in doing things: several days 2. Feeling down, depressed, or hopeless: more than half the days 3. Trouble falling or staying asleep, or sleeping too much: several days 4. Feeling tired or having little energy: several days 5. Poor appetite or overeating: not at all 6. Feeling bad about yourself - or that you are a failure or have let yourself or your family down: not at all 7. Trouble concentrating on things, such as reading the newspaper or watching television: not at all 8. Moving or speaking so slowly that other people could have noticed. Or the opposite - being so fidgety or restless that you have been moving around a lot more than usual: not at all 9. Thoughts that you would be better off or of hurting yourself in some way: not at all Total score: 5 Depression Screening Interpretation: Negative Depression Screening Done: Yes 49246 - PHQ-9 Billing: Yes Source: Developed by Drs. Taiwo Banegas, Pat Benoit, Nestor Zimmer and colleagues, with an educational valarie from [employer]. Physical Exam Vital Signs: Last Vital Signs Temp 98.0 F 07/04/25 09:04 Pulse 66 07/04/25 09:04 Resp 16 07/04/25 09:04 BP 120/78 07/04/25 09:04 Pulse Ox 99 07/04/25 09:04 Oxygen Delivery Method Room Air 07/04/25 09:04 Resp Effort & Inspection: normal respiratory effort Cardio Rate: regular rate Rhythm: regular rhythm Heart sounds: S1 normal heart sound present, S2 normal heart sound present and Murmur heart sound present systolic Neuro Other: neg rhomberg, able to stand from sitting position, cannot tandem walk (uses cane) and Hx of chronic back pain, passed whisper test with hearing aides only. Extrem Other: no edema, + sensation with use of monofilament, feet intact Immunizations Boostrix Tdap 2.5 Lf unit-8 mcg-5 Lf/0.5 mL intramuscular syringe Performing Provider: NU Claros Performing Location: [facility] Administered by: JONAH Crawford on 07/04/25 09:57 Dose Route Admin Location Dispensed Lot Number Expiration Date [facility] Payroll Representative 0.5 mL IM Right Deltoid 0.5 mL [id number] 11/12/26 [id number] [employer] Total Dispensed Waste 0.5 mL 0 % VIS Given Date VIS Provided VIS Publication Date 07/04/25 Single Vaccine 21 Eligibility Eligibility Date Funding Source Not [facility] Eligible 07/04/25 Private Assessment & Plan Assessment & Plan (1) Diabetes: Code(s): E11.9 - Type 2 diabetes mellitus without complications (2) Need for hepatitis B screening test: Code(s): Z11.59 - Encounter for screening for other viral diseases (3) Osteopenia: Code(s): M85.80 - Other specified disorders of bone density and structure, unspecified site (4) Vitamin D deficiency: Code(s): E55.9 - Vitamin D deficiency, unspecified (5) Encounter for subsequent annual wellness visit (AWV) in Medicare patient: Code(s): Z00.00 - Encounter for general adult medical examination without abnormal findings Plan . Orders: Orders Comprehensive [place]. Panel Fast Today E11.9 - Type 2 diabetes mellitus without complications XR DEXA axial skeleton Today E55.9 - Vitamin D deficiency, unspecified, M85.80 - Other specified disorders of bone density and structure, unspecified site Vitamin D 25-OH Total Today E55.9 - Vitamin D deficiency, unspecified TDaP Immunization Today Z23 - Encounter for immunization Complete Blood Count Auto Diff Today E11.9 - Type 2 diabetes mellitus without complications TSH reflex Free T4 Today E11.9 - Type 2 diabetes mellitus without complications UA CC w/rflx Micro + Cult Today E11.9 - Type 2 diabetes mellitus without complications Lipid Panel Today E11.9 - Type 2 diabetes mellitus without complications Hemoglobin A1c Today E11.9 - Type 2 diabetes mellitus without complications Hepatitis A,B,C Profile Today Z11.59 - Encounter for screening for other viral diseases Medications: New methocarbamol 500 mg PO TID PRN 90 tabs 1RF muscle spasm 30 days Quality Reporting (2019) Depression/Bipolar (159/160/161/177) PHQ-9: Total score: 5 Coding Level of Care Code Medicare Subsequent (G0439) Est Pt Level 3 (52262) Diagnoses Diabetes E11.9 Need for hepatitis B screening test Z11.59 Osteopenia M85.80 Vitamin D deficiency E55.9 Encounter for subsequent annual wellness visit (AWV) in Medicare patient Z00.00 CPT Codes Advance Care Planning - Time spent: 1-15 minutes, on File ([id number]) Additional Codes PHQ-9 - 97426 - PHQ-9 Billing: Yes ([id number]) Advance Care Planning Forms completed: Health Care Proxy (scanned), MOLST (scanned) and Living will (pt reports this is already done) Time spent: 1-15 minutes, on File Actual minutes spent: 5
[2025-07-04 09:04] VITALS: BP 120/78; PULSE 66; RESP 16; TEMP 36.7; O2SAT 99
== END 2025-07-04 17:00 | disposition home or self-care (01) ==
LOC: HO.HMCC 08:54
PROVIDERS: PCP Nurse Practitioner Family; Visit Provider Nurse Practitioner Family
DX: Z00.00 Encounter for general adult medical examination without abnormal findings (principal); E11.9 Type 2 diabetes mellitus without complications; Z11.59 Encounter for screening for other viral diseases; M85.80 Other specified disorders of bone density and structure, unspecified site; E55.9 Vitamin D deficiency, unspecified; Z23 Encounter for immunization

== ENCOUNTER → 2025-07-04 08:53 | Outpatient (BNVA) | payer MEDICARE, OTHER, SELFPAY | PROVIDERS: PCP Nurse Practitioner Family; Visit Provider Nurse Practitioner Family | DX: Z00.00 Encounter for general adult medical examination without abnormal findings (principal); E11.9 Type 2 diabetes mellitus without complications; M85.80 Other specified disorders of bone density and structure, unspecified site; E55.9 Vitamin D deficiency, unspecified; Z23 Encounter for immunization; Z79.899 Other long term (current) drug therapy | CPT/HCPCS: 90471; 90715; 96127 ==

== ENCOUNTER 2025-07-05 11:20 | Outpatient (REF) | payer SELFPAY ==
--- OUTSIDE RECORDS SUMMARY | 2024-03-26 07:20 | XMS_ITS ---
Author Organization [facility] Address [address] [place] [address] Care Team Providers Care Apartment Locator Name Role Phone CHANDU CHISHOLM Primary Care Provider Taiwo Azar Unavailable [phone] REASON FOR VISIT diarrhea,wt loss,nausea Problems Problem Type SNOMED Code ICD Code Onset Dates Problem Status W/U Status Risk Notes Problem Diverticular disease of colon (815740062) Diverticulosis of large intestine without perforation or abscess without bleeding (K57.30) Active confirmed Encounters Encounter Location Date Provider Diagnosis [facility] [place] [address] [place], [place] [phone] 03/26/2024 Taiwo Mcintosh Diarrhea R19.7 ; W [...] NANCY VORA CDOB: 7 (80 yo F)Acc No.[id number]:03/26/2024 EGD and COL/MAC Patient: NANCY COHEN Provider: Domo Mcintosh MD :1945 A ge:78 Y S ex:Female Date:03/26/2024 Address:[address] [address] , [id number] Pcp:CHANDU CHISHOLM Subjective: * Chief Complaints: * [...] FLW-UP 10 YRS DOCD, Modifiers: 8P , 61096 UPPER GI ENDOSCOPY, BIOPSY * * The named appointment provid er may or may not be the originator of this progress note, and it is not deemed complete until electronically signed by the appointment provider. Sign off status: Pending * Provider: Domo Mcintosh MD Date: 0 03/26/2024 Generated for Leidy elaine/Manolo/Jennsmitting on: 1 01:46 PM EDT
--- OUTSIDE RECORDS SUMMARY | 2025-07-05 13:46 | XMS_ITS | Encounter Summary ---
Author Organization [facility] Address [address] [place] [address] Care Team Providers Care Premium Note Interest Calculator Clerk Name Role Phone John Herrera MD Primary Care Provider Encounter Details Date Type Department Care Team (Late st Contact Info) Description 02/03/2024 Scanned Document [facility] Department of Internal Medicine & Nephrology [place] [address] [place] [id number] Karson Law MD [address] [address] Social History Tobacco Use Types Packs/Day Years [...] on filedocumented in this encounter Care Teams Premium Note Interest Calculator Clerk Relationship Specialty Start Date End Date John Herrera MD [address] [facility] [place] [address] PCP - General Family Medicine 02/03/24 documented as of this encounter
--- OUTSIDE RECORDS SUMMARY | 2025-07-05 13:46 | XMS_ITS | Patient Health Record ---
Author Organization [facility] Address [address] [place] [address] Care Team Providers Care Horizontal Resaw Operator Name Role Phone CHANDU CHISHOLM Primary Care Provider Taiwo Azar [phone] Allergies Allergen (clinical drug ingredient) Drug/Non Drug [...] Omeprazole 20 MG TAKE 1 CAPSULE BY [facility] EVERY MORNING; Duration: 30 Active Imodium A-D [...] Problem Screening for malignant neoplasm of colon (358844423) Encounter for screening for malignant neoplasm of colon (Z12.11) Active confirmed Problem Diarrhea (32287334) Diarrhea (R19.7) Active con firmed Problem Weight loss (724768334) Weight loss (R63.4) Active confirmed Problem Diverticular disease of colon (020760171) Diverticulosis of large intestine without perforation or abscess without bleeding (K57.30) Active confirmed Problem Nausea (517395853) Nausea (R11.0) Active confir med Problem Preprocedural examination (294331299326409) Preprocedural examination (Z01.818) Active confirmed Problem Ischemic colitis (46519987) Ischemic colitis (K55.9) Active confirmed Problem Essential hypertension (49779995) Hypertension, unspecified type (I10) Active confirmed Problem [facility] current use of non-steroidal anti-inflammatory drug (699835469936192) Encntr long-term NSAID use (Z79.1) Active confirmed Problem Gastroesophageal reflux disease (disorder) (237415164) Chronic GERD (K21.9) Active confirmed Vital Signs Blood pressure diastolic 00 mm Hg 08/10/2024 Height 61 in 08/10/2024 Blood pressure systolic 00 mm Hg 08/10/2024 Weight 174 lbs 08/10/2024 BMI 32.87 kg/m2 08/10/2024 Encounters Encounter Location Date Provider Diagnosis [facility] [address] [place] [address] 08/10/2024 Taiwo Mcintosh Diarrhea R19.7 ; Nausea [...] Start Date Coverage End Date MEDICARE OF [place] [address] [place] [id number] KAYLEEN VORA Self - patient is the insured HUMAN [address] [address] [place] [address] [id number] KAYLEEN VORA Self - patient is the insured Medical (General) History Medical History History ICD Code Denies [place],CVA,Lung disease,renal disease IDDM Hypertension Kidney stones Negative [...]
--- OUTSIDE RECORDS SUMMARY | 2025-07-05 13:46 | XMS_ITS | Clinical Summary ---
Author Organization [facility] Address [address] [facility] [address] [place] [address] Phone Care Team Providers Care Quality Rep Name Role Phone John Herrera NP Primary Care Provider [phone] Allergies Active Allergy Reactions Criticality Noted Date [...] PM EST) Hemoglobin A1C 5.4 (4.0-5.6) % [facility] Comment: MONITORING: In known diabetic patients, hemoglobin A1c targets should be discussed with health care provider. DIAGNOSTIC USE: The [place] Diabetes Association (ADA) and the World Health [...] [facility], a Service of [facility], [address] [place] [address] Niall Pinto MD, Culled Fruit Packer [facility]# [id number] Blood specimen (specimen) Venous blood / Unknown 10/14/2022 4:03 PM EST 10/14/2022 4:05 PM EST us Karson Law MD LAB BLOOD ORDERABLES Carol rasmussen Result [facility] from Last 3 Months or Most Recently Relevant to Health Maintenance Insurance [employer] Medicare [facility] Medicare Care Teams Quality Rep Relationship Specialty Start Date End Date John Herrera NP [address] [place] [address] PCP - General Nurse Practitioner 09/05/21
--- OUTSIDE RECORDS SUMMARY | 2025-07-05 13:46 | XMS_ITS | Encounter Summary ---
Author Organization [facility] Address [address] [place] [address] Phone Care Team Providers Care Tool Machinist Name Role Phone John Herrera NP Primary Care Provider Reason for Visit * Reason Comments Med Refill Encounter Details Date Type Department Care Team (Late st Contact Info) Description 11/15/2023 Refill [facility] [address] [place] [phone] Karson Law MD Social History Tobacco Use [...] on filedocumented in this encounter Care Teams Tool Machinist Relationship Specialty Start Date End Date John Herrera NP [address] [facility] [place] [address] PCP - General Nurse Practitioner 09/05/21 documented as of this encounter
--- OUTSIDE RECORDS SUMMARY | 2025-07-05 13:46 | XMS_ITS | Clinical Summary ---
Author Organization [facility] Address [address] [place] [address] Care Team Providers Care Financial Services Internship Name Role Phone John Herrera Primary Care Provider [phone] Allergies Active Allergy Reactions Criticality Noted Date [...] age to complete this topic Care Teams Financial Services Internship Relationship Specialty Start Date End Date John Herrera [address] [facility] [place] [address] PCP - General Family Medicine 05/30/23
--- OUTSIDE RECORDS SUMMARY | 2025-07-05 13:47 | XMS_ITS | Encounter Summary ---
Author Organization [facility] Address [address] [place] [address] Care Team Providers Care Retail Shift Manager Name Role Phone John Herrera ARAM Primary Care Provider [phone] Encounter Details Date Type Department Care Team (Latest Contact Info) Description 05/16/2025 Lab Requisition [facility] - Main Lab [address] [facility] [place] [address] Yared Villa MD [address] [place] [address] Type 2 diabetes mellitus with [...] Description 08/09/2025 11:00 AM EST Office Visit [facility] Hematology Oncology [address] [place] [address] Ceasar Colon MD [address] [place] [address] documented as of this encounter Procedures Procedure Name Priority Date/Time Associated Diagnosis Comments COMPLETE BLOOD COUNT Routine 05/16/2025 5:30 AM EDT Type 2 diabetes mellitus with other diabetic kidney complication (CMS/HCC V24, CMS/HCC V28) Essential (primary) hypertension Muscle weakness (generalized) Other hyperlipidemia COMPREHENSIVE METABOLIC PANEL Routine 05/16/2025 5:30 AM EDT Type 2 diabetes mellitus with other diabetic kidney complication ([facility] V24, [facility] V28) Essential (primary) hypertension Muscle weakness (generalized) Other hyperlipidemia documented in this encounter Results * (ABNORMAL) Comprehensive metabolic panel (05/16/2025 5:30 AM EDT) Sodium 141 133 - 145 mmol/L LAB CHEMISTRY METHOD 05/16/2025 1:30 PM [facility] Potassium 3.9 3.5 - 5.5 mmol/L LAB CHEMISTRY METHOD 05/16/2025 1:30 PM [facility] Chloride 108 96 - 110 mmol/L LAB CHEMISTRY METHOD 05/16/2025 1:30 PM [facility] LAB CO2 25 21 - 32 mmol/L LAB CHEMISTRY METHOD 05/16/2025 1:30 PM [facility] LAB Anion Gap 8 3 - 11 LAB CHEMISTRY METHOD 05/16/2025 1:30 PM [facility] LAB Glucose 99 70 - 100 mg/dL LAB CHEMISTRY METHOD 05/16/2025 1:30 PM [facility] BUN 11 5 - 25 mg/dL LAB CHEMISTRY METHOD 05/16/2025 1:30 PM [facility] Creatinine 1.24(H) 0.50 - 1.10 mg/dL LAB CHEMISTRY METHOD 05/16/2025 1:30 PM [facility] LAB eGFR 45(L) >=60 mL/min/1. 73m2 LAB CHEMISTRY METHOD 05/16/2025 1:30 PM [facility] LAB Comment:Calculation based on the Chronic Kidney Disease Epidemiology Collaboration (CKD-EPI) equation refit without adjustment for race. BUN/Creatinine Ratio 8.9 LAB CHEMISTRY METHOD 05/16/2025 1:30 PM EDT [facility] Calcium 8.8 8.5 - 10.5 mg/dL LAB CHEMISTRY METHOD 05/16/2025 1:30 PM EDT [facility] LAB AST (SGOT) 21 10 - 42 unit/L LAB CHEMISTRY METHOD 05/16/2025 1:30 PM EDT [facility] ALT (SGPT) 14 10 - 60 unit/L LAB CHEMISTRY METHOD 05/16/2025 1:30 PM EDT [facility] Alkaline Phosphatase 94 42 - 121 unit/L LAB CHEMISTRY METHOD 05/16/2025 1:30 PM EDT [facility] Total Protein 5.7(L) 6.0 - 8.0 g/dL LAB CHEMISTRY METHOD 05/16/2025 1:30 PM EDT [facility] Albumin 2.8(L) 3.2 - 5.0 g/dL LAB CHEMISTRY METHOD 05/16/2025 1:30 PM EDT [facility] Total Bilirubin 0.4 0.0 - 1.4 mg/dL LAB CHEMISTRY METHOD 05/16/2025 1:30 PM T [facility] Blood Venous blood specimen / Unknown 05/16/2025 5:30 AM EDT 05/16/2025 11:19 AM EDT us Yared Villa MD LAB BLOOD ORDERABLES Final Resu lt [facility] [address] [place] [address], [place] [phone] * (ABNORMAL) Complete blood count (05/16/2025 5:30 AM EDT) WBC 5.1 4.8 - 10.8 K/[facility] LAB HEMETOLOGY METHOD 05/16/2025 12:54 PM EDT [facility] RBC 3.50(L) 3.80 - 4.80 M/mcL LAB HEMETOLOGY METHOD 05/16/2025 12:54 PM EDT [facility] Hemoglobin 10.7(L) 11.5 - 16.0 g/dL LAB HEMETOLOGY METHOD 05/16/2025 12:54 PM [facility] Hematocrit 34.5(L) 35.0 - 47.0 % LAB HEMETOLOGY METHOD 05/16/2025 12:54 PM [facility] LAB MCV 100.0(H) 79.0 - 98.0 FL LAB HEMETOLOGY METHOD 05/16/2025 12:54 PM [facility] LAB MCH 31.0 27.0 - 32.0 pcg LAB HEMETOLOGY METHOD 05/16/2025 12:54 PM [facility] LAB MCHC 31.0(L) 32.0 - 37.0 g/dL LAB HEMETOLOGY METHOD 05/16/2025 12:54 PM [facility] LAB RDW 12.7 11.0 - 15.0 % LAB HEMETOLOGY METHOD 05/16/2025 12:54 PM [facility] LAB Platelets 241 130 - 400 K/mcL LAB HEMETOLOGY METHOD 05/16/2025 12:54 PM [facility] LAB MPV 11.1(H) 7.0 - 11.0 FL LAB HEMETOLOGY METHOD 05/16/2025 12:54 PM [facility] LAB NRBC 0.0 <1.0 % LAB HEMETOLOGY METHOD 05/16/2025 12:54 PM [facility] LAB NRBC Absolute 0.00 <0.10 K/mcL LAB HEMETOLOGY METHOD 05/16/2025 12:54 PM [facility] Blood Venous blood specimen / Unknown Venipuncture / Unknown 05/16/2025 5:30 AM EDT 05/16/2025 11:19 AM EDT us Yared Villa MD LAB BLOOD ORDERABLES Final Resu lt [facility] [address] [place] [address], documented in this encounter Visit Diagnoses Diagnosis Type 2 diabetes mellitus with other diabetic kidney complication (CMS/HCC V24, CMS/HCC V28) Essential (primary) hypertension Unspecified essential hypertension Muscle weakness (generalized) Other hyperlipidemia documented in this encounter Care Teams Retail Shift Manager Relationship Specialty Start Date End Date John Herrera NP [address] [place], [place] PCP - General 05/30/23 documented as of this encounter
--- OUTSIDE RECORDS SUMMARY | 2025-07-05 13:47 | XMS_ITS | Encounter Summary ---
Author Organization [facility] Address [address] [place] [address] Care Team Providers Care Planning Engineer Name Role Phone John Herrera ARAM Primary Care Provider Encounter Details Date Type Department Care Team (Late Contact Info) Description 05/18/2025 Lab Requisition [facility] - Main Lab [address] [facility] [place] [address] Yared Villa MD [address] [place] [address] Essential (primary) hypertension; Type 2 [...] Description 08/09/2025 11:00 AM EST Office Visit [facility] Hematology Oncology [address] [place] [phone] Ceasar Colon MD [address] [place], [place] [phone] documented as of this encounter Procedures Procedure Name Priority Date/Time Associated Diagnosis Comments COMPLETE BLOOD COUNT Routine 05/19/2025 5:10 AM EDT Essential (primary) hypertension Type 2 diabetes mellitus with other diabetic kidney complication (CMS/HCC V24, [facility] V28) Other hyperlipidemia Muscle weakness (generalized) BASIC METABOLIC PANEL Routine 05/19/2025 5:10 AM EDT Essential (primary) hypertension Type 2 diabetes mellitus with other diabetic kidney complication ([facility] V24, [facility] V28) Other hyperlipidemia Muscle weakness (generalized) documented in this encounter Results * (ABNORMAL) Basic metabolic panel (05/19/2025 5:10 AM EDT) [facility] Sodium 139 133 - 145 mmol/L LAB CHEMISTRY METHOD 05/19/2025 10:55 AM [facility] Potassium 5.1 3.5 - 5.5 mmol/L LAB CHEMISTRY METHOD 05/19/2025 10:55 AM [facility] LAB Comment:Hemolysis present Chloride 108 96 - 110 mmol/L LAB CHEMISTRY METHOD 05/19/2025 10:55 AM [facility] CO2 25 21 - 32 mmol/L LAB CHEMISTRY METHOD 05/19/2025 10:55 AM [facility] Anion Gap 6 3 - 11 LAB CHEMISTRY METHOD 05/19/2025 10:55 AM [facility] Glucose 88 70 - 100 mg/dL LAB CHEMISTRY METHOD 05/19/2025 10:55 AM [facility] BUN 15 5 - 25 mg/dL LAB CHEMISTRY METHOD 05/19/2025 10:55 AM [facility] Creatinine 1.21(H) 0.50 - 1.10 mg/dL LAB CHEMISTRY METHOD 05/19/2025 10:55 AM [facility] LAB eGFR 46(L) >=60 mL/min/1. 73m2 LAB CHEMISTRY METHOD 05/19/2025 10:55 AM [facility] LAB Comment:Calculation based on the Chronic Kidney Disease Epidemiology Collaboration (CKD-EPI) equation refit without adjustment for race. BUN/Creatinine Ratio 12.4 LAB CHEMISTRY METHOD 05/19/2025 10:55 AM EDT [facility] LAB Calcium 8.9 8.5 - 10.5 mg/dL LAB CHEMISTRY METHOD 05/19/2025 10:55 AM [facility] Blood Venous blood specimen / Unknown Venipuncture / Unknown 05/19/2025 5:10 AM EDT 05/19/2025 10:15 AM EDT us Yared Villa MD LAB BLOOD ORDERABLES Final Resu lt [facility] LAB [address] [place] [address], * (ABNORMAL) Complete blood count (05/19/2025 5:10 AM EDT) WBC 6.0 4.8 - 10.8 K/mcL LAB HEMETOLOGY METHOD 05/19/2025 10:30 AM [facility] RBC 3.40(L) 3.80 - 4.80 M/mcL LAB HEMETOLOGY METHOD 05/19/2025 10:30 AM [facility] Hemoglobin 10.7(L) 11.5 - 16.0 g/dL LAB HEMETOLOGY METHOD 05/19/2025 10:30 AM [facility] Hematocrit 33.6(L) 35.0 - 47.0 % LAB HEMETOLOGY METHOD 05/19/2025 10:30 AM [facility] LAB MCV 98.2(H) 79.0 - 98.0 FL LAB HEMETOLOGY METHOD 05/19/2025 10:30 AM [facility] MCH 31.3 27.0 - 32.0 pcg LAB HEMETOLOGY METHOD 05/19/2025 10:30 AM [facility] LAB MCHC 31.8(L) 32.0 - 37.0 g/dL LAB HEMETOLOGY METHOD 05/19/2025 10:30 AM EDT [facility] LAB RDW 12.6 11.0 - 15.0 % LAB HEMETOLOGY METHOD 05/19/2025 10:30 AM EDT [facility] LAB Platelets 213 130 - 400 K/mcL LAB HEMETOLOGY METHOD 05/19/2025 10:30 AM EDT [facility] LAB MPV 11.5(H) 7.0 - 11.0 FL LAB HEMETOLOGY METHOD 05/19/2025 10:30 AM EDT [facility] NRBC 0.0 <1.0 % LAB HEMETOLOGY METHOD 05/19/2025 10:30 AM EDT [facility] NRBC Absolute 0.00 <0.10 K/mcL LAB HEMETOLOGY METHOD 05/19/2025 10:30 AM EDT [facility] LAB Blood Venous blood specimen / Unknown Venipuncture / Unknown 05/19/2025 5:10 AM EDT 05/19/2025 10:20 AM EDT us Yared Villa MD LAB BLOOD ORDERABLES Final Resu lt [facility] LAB [address] [place] [address], documented in this encounter Visit Diagnoses Diagnosis Essential (primary) hypertension Unspecified essential hypertension Type 2 diabetes mellitus with other diabetic kidney complication (CMS/HCC V24, CMS/HCC V28) Other hyperlipidemia Muscle weakness (generalized) documented in this encounter Care Teams Planning Engineer Relationship Specialty Start Date End Date John Herrera NP [address] [place], [place] PCP - General 05/30/23 documented as of this encounter
--- OUTSIDE RECORDS SUMMARY | 2025-07-05 13:47 | XMS_ITS | Clinical Summary ---
Author Organization [facility] Address [address] [place] [address] Phone Care Team Providers Care Rn Registry Name Role Phone John Herrera NP Primary [...] Department Care Team Description 05/18/[address] [facility] - Main Lab [address] [facility] [place] [address] Yared Villa MD Essential (primary) hypertension; Type 2 diabetes mellitus with other diabetic kidney complication ([facility] V24, [facility] V28); Other hyperlipidemia; Muscle weakness (generalized) 05/16/2025 Lab Requisition [facility] Lab [address] [place] [address] Yared Villa MD Type 2 diabetes mellitus with other diabetic kidney complication ([facility] V24, [facility] V28); Essential (primary) hypertension; Muscle weakness (generalized); Other hyperlipidemia 05/15/2025 Lab Requisition [facility] Lab [address] [place] [address] Yared Villa MD Essential (primary) hypertension; Other hyperlipidemia; Type 2 diabetes mellitus with other diabetic kidney complication ([facility] V24, [facility] V28); Muscle weakness (generalized) from Last 3 [...] 11:00 AM EST Office Visit [facility] Hematology Oncology [address] [place] [phone] Ceasar Colon MD [address] [place] [address] Health Maintenance Due Date Last Done Comments [...] of3 resultswithin the time period is included. [facility] WBC 6.0 4.8 - 10.8 K/mcL LAB HEMETOLOGY METHOD 05/19/2025 10:30 AM [facility] LAB RBC 3.40(L) 3.80 - 4.80 M/mcL LAB HEMETOLOGY METHOD 05/19/2025 10:30 AM [facility] LAB Hemoglobin 10.7(L) 11.5 - 16.0 g/dL LAB HEMETOLOGY METHOD 05/19/2025 10:30 AM [facility] LAB Hematocrit 33.6(L) 35.0 - 47.0 % LAB HEMETOLOGY METHOD 05/19/2025 10:30 AM [facility] LAB MCV 98.2(H) 79.0 - 98.0 FL LAB HEMETOLOGY METHOD 05/19/2025 10:30 AM [facility] LAB MCH 31.3 27.0 - 32.0 pcg LAB HEMETOLOGY METHOD 05/19/2025 10:30 AM [facility] LAB MCHC 31.8(L) 32.0 - 37.0 g/dL LAB HEMETOLOGY METHOD 05/19/2025 10:30 AM [facility] LAB RDW 12.6 11.0 - 15.0 % LAB HEMETOLOGY METHOD 05/19/2025 10:30 AM [facility] Platelets 213 130 - 400 K/mcL LAB HEMETOLOGY METHOD 05/19/2025 10:30 AM [facility] MPV 11.5(H) 7.0 - 11.0 FL LAB HEMETOLOGY METHOD 05/19/2025 10:30 AM [facility] LAB NRBC 0.0 <1.0 % LAB HEMETOLOGY METHOD 05/19/2025 10:30 AM [facility] LAB NRBC Absolute 0.00 <0.10 K/[facility] LAB HEMETOLOGY METHOD 05/19/2025 10:30 AM [facility] LAB Blood Venous blood specimen / Unknown Venipuncture / Unknown 05/19/2025 5:10 AM EDT 05/19/2025 10:20 AM EDT us Yared Villa MD LAB BLOOD ORDERABLES Final Resu lt [facility] [address] [place] [address], [place] [phone] * (ABNORMAL) Basic metabolic panel (05/19/2025 5:10 AM EDT) Sodium 139 133 - 145 mmol/L LAB CHEMISTRY METHOD 05/19/2025 10:55 AM [facility] Potassium 5.1 3.5 - 5.5 mmol/L LAB CHEMISTRY METHOD 05/19/2025 10:55 AM [facility] LAB Comment:Hemolysis present Chloride 108 96 - 110 mmol/L LAB CHEMISTRY METHOD 05/19/2025 10:55 AM [facility] CO2 25 21 - 32 mmol/L LAB CHEMISTRY METHOD 05/19/2025 10:55 AM [facility] Anion Gap 6 3 - 11 LAB CHEMISTRY METHOD 05/19/2025 10:55 AM [facility] Glucose 88 70 - 100 mg/dL LAB CHEMISTRY METHOD 05/19/2025 10:55 AM [facility] BUN 15 5 - 25 mg/dL LAB CHEMISTRY METHOD 05/19/2025 10:55 AM [facility] Creatinine 1.21(H) 0.50 - 1.10 mg/dL LAB CHEMISTRY METHOD 05/19/2025 10:55 AM [facility] eGFR 46(L) >=60 mL/min/1. 73m2 LAB CHEMISTRY METHOD 05/19/2025 10:55 AM [facility] Comment:Calculation based on the Chronic Kidney Disease Epidemiology Collaboration (CKD-EPI) equation refit without adjustment for race. BUN/Creatinine Ratio 12.4 LAB CHEMISTRY METHOD 05/19/2025 10:55 AM EDT [facility] Calcium 8.9 8.5 - 10.5 mg/dL LAB CHEMISTRY METHOD 05/19/2025 10:55 AM EDT [facility] Blood Venous blood specimen / Unknown Venipuncture / Unknown 05/19/2025 5:10 AM EDT 05/19/2025 10:15 AM EDT us Yared Villa MD LAB BLOOD ORDERABLES Final Resu lt [facility] [address] [place] [address], [place] [phone] * (ABNORMAL) Comprehensive metabolic panel (05/16/2025 5:30 AM EDT) Only the most recent of2 resultswithin the time period is included. Sodium 141 133 - 145 mmol/L LAB CHEMISTRY METHOD 05/16/2025 1:30 PM [facility] Potassium 3.9 3.5 - 5.5 mmol/L LAB CHEMISTRY METHOD 05/16/2025 1:30 PM [facility] Chloride 108 96 - 110 mmol/L LAB CHEMISTRY METHOD 05/16/2025 1:30 PM T [facility] CO2 25 21 - 32 mmol/L LAB CHEMISTRY METHOD 05/16/2025 1:30 PM [facility] Anion Gap 8 3 - 11 LAB CHEMISTRY METHOD 05/16/2025 1:30 PM [facility] Glucose 99 70 - 100 mg/dL LAB CHEMISTRY METHOD 05/16/2025 1:30 PM [facility] BUN 11 5 - 25 mg/dL LAB CHEMISTRY METHOD 05/16/2025 1:30 PM [facility] Creatinine 1.24(H) 0.50 - 1.10 mg/dL LAB CHEMISTRY METHOD 05/16/2025 1:30 PM [facility] eGFR 45(L) >=60 mL/min/1. 73m2 LAB CHEMISTRY METHOD 05/16/2025 1:30 PM [facility] Comment:Calculation based on the Chronic Kidney Disease Epidemiology Collaboration (CKD-EPI) equation refit without adjustment for race. BUN/Creatinine Ratio 8.9 LAB CHEMISTRY METHOD 05/16/2025 1:30 PM [facility] Calcium 8.8 8.5 - 10.5 mg/dL LAB CHEMISTRY METHOD 05/16/2025 1:30 PM [facility] AST (SGOT) 21 10 - 42 unit/L LAB CHEMISTRY METHOD 05/16/2025 1:30 PM [facility] ALT (SGPT) 14 10 - 60 unit/L LAB CHEMISTRY METHOD 05/16/2025 1:30 PM [facility] Alkaline Phosphatase 94 42 - 121 unit/L LAB CHEMISTRY METHOD 05/16/2025 1:30 PM [facility] Total Protein 5.7(L) 6.0 - 8.0 g/dL LAB CHEMISTRY METHOD 05/16/2025 1:30 PM [facility] Albumin 2.8(L) 3.2 - 5.0 g/dL LAB CHEMISTRY METHOD 05/16/2025 1:30 PM [facility] Total Bilirubin 0.4 0.0 - 1.4 mg/dL LAB CHEMISTRY METHOD 05/16/2025 1:30 PM [facility] Blood Venous blood specimen / Unknown 05/16/2025 5:30 AM EDT 05/16/2025 11:19 AM EDT us Yared Villa MD LAB BLOOD ORDERABLES Final Resu lt [facility] [place] [facility] [address] [place] [address], from Last 3 Months Insurance MEDICARE HUMAN Care Teams Rn Registry Relationship Specialty Start Date End Date John Herrera NP [address] [facility] [place] PCP - General 05/30/23
--- OUTSIDE RECORDS SUMMARY | 2025-07-05 13:47 | XMS_ITS | Clinical Summary ---
Author Organization [facility] Address [address] [place] [address] Care Team Providers Care Binder Caser Name Role Phone John Herrera MD Primary [...] 08/11/2024 6:10 AM EST Performed at: - Lab[address] [id number] Lpn Cma: Suzi Stern MD, Phone: [phone] us Karson Law MD LAB BLOOD ORDERABLES [...] AM EST Performed at: 01 - [facility] [address] [id number] Lpn Cma: Suzi Stern MD, Phone: [phone] Karson Law MD LAB BLOOD ORDERABLES Carol [facility] 1 from Last 3 Months or Most Recently Relevant to Health Maintenance Insurance MEDICARE PART A & B [facility] SUPPLEMENT ONLY Care Teams Binder Caser Relationship Specialty Start Date End Date John Herrera MD [address] [place] [address] PCP - General Family Medicine 02/03/24
--- OUTSIDE RECORDS SUMMARY | 2025-07-05 13:47 | XMS_ITS | Encounter Summary ---
Author Organization [facility] Address [address] [place] [address] Care Team Providers Care Service Clerk Name Role Phone John Herrera ARAM Primary Care Provider Encounter Details Date Type Department Care Team (Late Contact Info) Description 05/15/2025 Lab Requisition [facility] - Main Lab [address] [facility] [place] [address] Yared Villa MD [address] [place] [address] Essential (primary) hypertension; Other hyperlipidemia; [...] Visit [facility] Hematology Oncology [address] [place] [address] Ceasar Colon MD [address] [place] [address] documented as of this encounter Procedures Procedure Name Priority Date/Time Associated Diagnosis Comments COMPLETE BLOOD COUNT Routine 05/15/2025 5:12 AM EDT Essential (primary) hypertension Other hyperlipidemia Type 2 diabetes mellitus with other diabetic kidney complication (CMS/[facility] V24, [facility] [place]28) Muscle weakness (generalized) COMPREHENSIVE METABOLIC PANEL Routine 05/15/2025 5:12 AM EDT Essential (primary) hypertension Other hyperlipidemia Type 2 diabetes mellitus with other diabetic kidney complication ([facility] V24, [facility] V28) Muscle weakness (generalized) documented in this encounter Results * (ABNORMAL) Comprehensive metabolic panel (05/15/2025 5:12 AM EDT) Sodium 140 133 - 145 mmol/L LAB CHEMISTRY METHOD 05/15/2025 10:22 AM [facility] Potassium 4.2 3.5 - 5.5 mmol/L LAB CHEMISTRY METHOD 05/15/2025 10:22 AM [facility] LAB Chloride 107 96 - 110 mmol/L LAB CHEMISTRY METHOD 05/15/2025 10:22 AM [facility] LAB CO2 28 21 - 32 mmol/L LAB CHEMISTRY METHOD 05/15/2025 10:22 AM [facility] LAB Anion Gap 5 3 - 11 LAB CHEMISTRY METHOD 05/15/2025 10:22 AM [facility] LAB Glucose 96 70 - 100 mg/dL LAB CHEMISTRY METHOD 05/15/2025 10:22 AM [facility] BUN 9 5 - 25 mg/dL LAB CHEMISTRY METHOD 05/15/2025 10:22 AM [facility] LAB Creatinine 1.34(H) 0.50 - 1.10 mg/dL LAB CHEMISTRY METHOD 05/15/2025 10:22 AM [facility] LAB eGFR 41(L) >=60 mL/min/1. 73m2 LAB CHEMISTRY METHOD 05/15/2025 10:22 AM [facility] LAB Comment:Calculation based on the Chronic Kidney Disease Epidemiology Collaboration (CKD-EPI) equation refit without adjustment for race. BUN/Creatinine Ratio 6.7 LAB CHEMISTRY METHOD 05/15/2025 10:22 AM [facility] LAB Calcium 8.8 8.5 - 10.5 mg/dL LAB CHEMISTRY METHOD 05/15/2025 10:22 AM [facility] LAB AST (SGOT) 15 10 - 42 unit/L LAB CHEMISTRY METHOD 05/15/2025 10:22 AM [facility] LAB ALT (SGPT) 13 10 - 60 unit/L LAB CHEMISTRY METHOD 05/15/2025 10:22 AM [facility] LAB Alkaline Phosphatase 77 42 - 121 unit/L LAB CHEMISTRY METHOD 05/15/2025 10:22 AM [facility] Total Protein 5.2(L) 6.0 - 8.0 g/dL LAB CHEMISTRY METHOD 05/15/2025 10:22 AM [facility] Albumin 2.7(L) 3.2 - 5.0 g/dL LAB CHEMISTRY METHOD 05/15/2025 10:22 AM [facility] Total Bilirubin 0.3 0.0 - 1.4 mg/dL LAB CHEMISTRY METHOD 05/15/2025 10:22 AM [facility] LAB Blood Venous blood specimen / Unknown Venipuncture / Unknown 05/15/2025 5:12 AM EDT 05/15/2025 8:47 AM EDT us Yared Villa MD LAB BLOOD ORDERABLES Final Resu lt [facility] LAB [address] [place] [address], * (ABNORMAL) Complete blood count (05/15/2025 5:12 AM EDT) WBC 5.3 4.8 - 10.8 K/mcL LAB HEMETOLOGY METHOD 05/15/2025 9:47 AM EDT [facility] LAB RBC 3.30(L) 3.80 - 4.80 M/mcL LAB HEMETOLOGY METHOD 05/15/2025 9:47 AM [facility] LAB Hemoglobin 10.1(L) 11.5 - 16.0 g/dL LAB HEMETOLOGY METHOD 05/15/2025 9:47 AM [facility] LAB Hematocrit 31.8(L) 35.0 - 47.0 % LAB HEMETOLOGY METHOD 05/15/2025 9:47 AM [facility] LAB MCV 97.5 79.0 - 98.0 FL LAB HEMETOLOGY METHOD 05/15/2025 9:47 AM [facility] LAB MCH 31.0 27.0 - 32.0 pcg LAB HEMETOLOGY METHOD 05/15/2025 9:47 AM [facility] LAB MCHC 31.8(L) 32.0 - 37.0 g/dL LAB HEMETOLOGY METHOD 05/15/2025 9:47 AM [facility] LAB RDW 12.7 11.0 - 15.0 % LAB HEMETOLOGY METHOD 05/15/2025 9:47 AM [facility] LAB Platelets 257 130 - 400 K/mcL LAB HEMETOLOGY METHOD 05/15/2025 9:47 AM [facility] LAB MPV 10.9 7.0 - 11.0 FL LAB HEMETOLOGY METHOD 05/15/2025 9:47 AM [facility] LAB NRBC 0.0 <1.0 % LAB HEMETOLOGY METHOD 05/15/2025 9:47 AM [facility] LAB NRBC Absolute 0.00 <0.10 K/mcL LAB HEMETOLOGY METHOD 05/15/2025 9:47 AM [facility] LAB Blood Venous blood specimen / Unknown Venipuncture / Unknown 05/15/2025 5:12 AM EDT 05/15/2025 8:47 AM EDT us Yared Villa MD LAB BLOOD ORDERABLES Final Resu lt [facility] ([facility]) [facility] [address] [place] [address], documented in this encounter Visit Diagnoses Diagnosis Essential (primary) hypertension Unspecified essential hypertension Other hyperlipidemia Type 2 diabetes mellitus with other diabetic kidney complication (CMS/HCC V24, CMS/HCC V28) Muscle weakness (generalized) documented in this encounter Care Teams Service Clerk Relationship Specialty Start Date End Date John Herrera NP [address] [place], [place] PCP - General 05/30/23 documented as of this encounter
== END 2025-07-05 11:21 | disposition home or self-care (01) ==
LOC: HO.HAP 11:20
PROVIDERS: PCP Nurse Practitioner Family; Visit Provider Nurse Practitioner Family
DX: Z13.89 Encounter for screening for other disorder (principal)

== ENCOUNTER 2025-07-13 10:01 | Outpatient (REF) | payer SELFPAY ==
--- OUTSIDE RECORDS SUMMARY | 2024-03-26 07:20 | XMS_ITS ---
Author Organization [facility] Address [address] [place] [address] Care Team Providers Care Time Study Statistician Name Role Phone CHANDU CHISHOLM Primary Care Provider Taiwo Azar Unavailable [phone] REASON FOR VISIT diarrhea,wt loss,nausea Problems Problem Type SNOMED Code ICD Code Onset Dates Problem Status W/U Status Risk Notes Problem Diverticular disease of colon (680484490) Diverticulosis of large intestine without perforation or abscess without bleeding (K57.30) Active confirmed Encounters Encounter Location Date Provider Diagnosis [facility] [place] Out[place] [address] [place], [place] [phone] 03/26/2024 Taiwo Mcintosh Diarrhea R19.7 ; W [...] NANCY VORA CDOB: [birth year] (80 yo F)Acc No.[id number]:03/26/2024 EGD and COL/MAC Patient: NANCY COHEN Provider: Domo Mcintosh MD :1945 A ge:78 Y S ex:Female Date:03/26/2024 Address:[address] [address] , [place] Pcp:CHANDU CHISHOLM Subjective: * Chief Complaints: * [...] FLW-UP 10 YRS DOCD, Modifiers: 8P , 28770 UPPER GI ENDOSCOPY, BIOPSY * * The named appointment provid er may or may not be the originator of this progress note, and it is not deemed complete until electronically signed by the appointment provider. Sign off status: Pending * Provider: Domo Mcintosh MD Date: 0 03/26/2024 Generated for Leidy elaine/Manolo/Jennsmitting on: 1 12:08 PM EDT
--- OUTSIDE RECORDS SUMMARY | 2025-07-13 12:09 | XMS_ITS | Clinical Summary ---
Author Organization [facility] Address [address] [place] [address] Care Team Providers Care Dog Or Animal Sitter Name Role Phone John Herrera MD Primary [...] es 65 and older) 2012 RSV Vaccine 50 years and old er and Patients (1 [...] 08/11/2024 6:10 AM EST Performed at: - [address] [id number] Animal Trapper: uSzi Stern MD, Phone: [phone] us Karson Law MD LAB BLOOD ORDERABLES [...] AM EST Performed at: 01 - [facility] [address] [id number] Animal Trapper: Suzi Stern MD, Phone: [phone] Karson Law MD LAB BLOOD ORDERABLES Carol [facility] 1 from Last 3 Months or Most Recently Relevant to Health Maintenance Insurance MEDICARE PART A & B [facility] SUPPLEMENT ONLY Care Teams Dog Or Animal Sitter Relationship Specialty Start Date End Date John Herrera MD [address] [place] [address] PCP - General Family Medicine 02/03/24
--- OUTSIDE RECORDS SUMMARY | 2025-07-13 12:09 | XMS_ITS | Encounter Summary ---
Author Organization [facility] Address [address] [place] [address] Care Team Providers Care Director Title Name Role Phone John Herrera ARAM Primary Care Provider Encounter Details Date Type Department Care Team (Latest Contact Info) Description 05/16/2025 Lab Requisition [facility] - Main Lab [address] [facility] [place] [address] Yared Villa MD [address] [place] [address] Type 2 diabetes mellitus with [...] Description 08/09/2025 11:00 AM EST Office Visit [facility] Hematology Oncology [address] [place] [address] Ceasar Colon MD [address] [place] [address] documented as of this encounter Procedures Procedure Name Priority Date/Time Associated Diagnosis Comments COMPLETE BLOOD COUNT Routine 05/16/2025 5:30 AM EDT Type 2 diabetes mellitus with other diabetic kidney complication (CMS/HCC V24, CMS/HCC V28) Essential (primary) hypertension Muscle weakness (generalized) Other hyperlipidemia COMPREHENSIVE METABOLIC PANEL Routine 05/16/2025 5:30 AM EDT Type 2 diabetes mellitus with other diabetic kidney complication ([facility] [place]24, [facility] V28) Essential (primary) hypertension Muscle weakness (generalized) [...] LAB CHEMISTRY METHOD 05/16/2025 1:30 PM EDT [facility] Calcium 8.8 8.5 - 10.5 mg/dL LAB CHEMISTRY METHOD 05/16/2025 1:30 PM EDT [facility] AST (SGOT) 21 10 - 42 unit/L LAB CHEMISTRY METHOD 05/16/2025 1:30 PM EDT [facility] ALT (SGPT) 14 10 - 60 unit/L LAB CHEMISTRY METHOD 05/16/2025 1:30 PM EDT [facility] Alkaline Phosphatase 94 42 - 121 unit/L LAB CHEMISTRY METHOD 05/16/2025 1:30 PM EDT [facility] Total Protein 5.7(L) 6.0 - 8.0 g/dL LAB CHEMISTRY METHOD 05/16/2025 1:30 PM EDT [facility] Albumin 2.8(L) 3.2 - 5.0 g/dL LAB CHEMISTRY METHOD 05/16/2025 1:30 PM EDT [facility] Total Bilirubin 0.4 0.0 - 1.4 mg/dL LAB CHEMISTRY METHOD 05/16/2025 1:30 PM T [facility] Blood Venous blood specimen / Unknown 05/16/2025 5:30 AM EDT 05/16/2025 11:19 AM EDT us Yared Villa MD LAB BLOOD ORDERABLES Final Resu lt [facility] [address] [place] [address], [place] [phone] * (ABNORMAL) Complete blood count (05/16/2025 5:30 AM EDT) WBC 5.1 4.8 - 10.8 K/[facility] LAB HEMETOLOGY METHOD 05/16/2025 12:54 PM EDT [facility] RBC 3.50(L) 3.80 - 4.80 M/mcL LAB HEMETOLOGY METHOD 05/16/2025 12:54 PM EDT [facility] Hemoglobin 10.7(L) 11.5 - [...] MD LAB BLOOD ORDERABLES Final Resu lt [facility] ([facility]) [facility] [address] [place] [address], documented in this encounter Visit Diagnoses Diagnosis Type 2 diabetes mellitus with other diabetic kidney complication (CMS/HCC V24, CMS/HCC V28) Essential (primary) hypertension Unspecified essential hypertension Muscle weakness (generalized) Other hyperlipidemia documented in this encounter Care Teams Director Title Relationship Specialty Start Date End Date John Herrera NP [address] [place], [place] PCP - General 05/30/23 documented as of this encounter
--- OUTSIDE RECORDS SUMMARY | 2025-07-13 12:09 | XMS_ITS | Encounter Summary ---
Author Organization [facility] Address [address] [place] [address] Care Team Providers Care Health Promotion Specialist Name Role Phone John Herrera MD Primary Care Provider Encounter Details Date Type Department Care Team (Late st Contact Info) Description 02/03/2024 Scanned Document [facility] Department of Internal Medicine & Nephrology [place] [address] [place] [address] Karson Law MD [address] [address] Social History Tobacco Use Types Packs/Day Years [...] on filedocumented in this encounter Care Teams Health Promotion Specialist Relationship Specialty Start Date End Date John Herrera MD [address] [facility] [place] [address] PCP - General Family Medicine 02/03/24 documented as of this encounter
--- OUTSIDE RECORDS SUMMARY | 2025-07-13 12:09 | XMS_ITS | Patient Health Record ---
Author Organization [facility] Address [address] [place] [address] Care Team Providers Care Community Arts Officer Name Role Phone CHANDU CHISHOLM Primary Care Provider Taiwo Azar [phone] Allergies Allergen (clinical drug ingredient) Drug/Non Drug [...] Omeprazole 20 MG TAKE 1 CAPSULE BY [facility] EVERY MORNING; Duration: 30 Active Imodium [...] Problem Screening for malignant neoplasm of colon (311139332) Encounter for screening for malignant neoplasm of colon (Z12.11) Active confirmed Problem Diarrhea (12960303) Diarrhea (R19.7) Active con firmed Problem Weight loss (323951541) Weight loss (R63.4) Active confirmed Problem Diverticular disease of colon (470371844) Diverticulosis of large intestine without perforation or abscess without bleeding (K57.30) Active confirmed Problem Nausea (394575242) Nausea (R11.0) Active confir med Problem Preprocedural examination (815957530425573) Preprocedural examination (Z01.818) Active confirmed Problem Ischemic colitis (19554908) Ischemic colitis (K55.9) Active confirmed Problem Essential hypertension (66186102) Hypertension, unspecified type (I10) Active confirmed Problem skilled nursing current use of non-steroidal anti-inflammatory drug (445379509654557) Encntr long-term NSAID use (Z79.1) Active confirmed Problem Gastroesophageal reflux disease (disorder) (885312726) Chronic GERD (K21.9) Active confirmed Vital Signs Blood pressure diastolic 00 mm Hg 08/10/2024 Height 61 in 08/10/2024 Blood pressure systolic 00 mm Hg 08/10/2024 Weight 174 lbs 08/10/2024 BMI 32.87 kg/m2 08/10/2024 Encounters Encounter Location Date Provider Diagnosis [facility] [address] [place] [address] 08/10/2024 Taiwo Mcintosh Diarrhea R19.7 ; Nausea [...] Start Date Coverage End Date MEDICARE OF [place] [address] [place] [id number] [id number] KAYLEEN VORA Self - patient is the insured HUMAN [address] [address] [place] [address] [id number] KAYLEEN VORA Self - patient is the [...]
--- OUTSIDE RECORDS SUMMARY | 2025-07-13 12:09 | XMS_ITS | Encounter Summary ---
Author Organization [facility] Address [address] [place] [address] Care Team Providers Care Junior Mechanical Engineer Name Role Phone John Herrera ARAM Primary Care Provider Encounter Details Date Type Department Care Team (Late Contact Info) Description 05/15/2025 Lab Requisition [facility] - Main Lab [address] [facility] [place] [address] Yared Villa MD [address] [place] [address] Essential (primary) hypertension; Other hyperlipidemia; [...] Description 08/09/2025 11:00 AM EST Office Visit [facility] Hematology Oncology [address] [place] [phone] Ceasar Colon MD [address] [place] [address] documented as of this encounter Procedures Procedure Name Priority Date/Time Associated Diagnosis Comments COMPLETE BLOOD COUNT Routine 05/15/2025 5:12 AM EDT Essential (primary) hypertension Other hyperlipidemia Type 2 diabetes mellitus with other diabetic kidney complication (CMS/[facility] V24, [facility] [place]28) Muscle weakness (generalized) COMPREHENSIVE METABOLIC PANEL Routine 05/15/2025 5:12 AM EDT Essential (primary) hypertension Other hyperlipidemia Type 2 diabetes mellitus with other diabetic kidney complication ([facility] V24, [facility] V28) Muscle weakness (generalized) documented in this encounter Results * (ABNORMAL) Comprehensive metabolic panel (05/15/2025 5:12 AM EDT) Sodium 140 133 - 145 mmol/L LAB CHEMISTRY METHOD 05/15/2025 10:22 AM [facility] Potassium 4.2 3.5 - 5.5 mmol/L LAB CHEMISTRY METHOD 05/15/2025 10:22 AM [facility] Chloride 107 96 - 110 mmol/L LAB CHEMISTRY METHOD 05/15/2025 10:22 AM [facility] CO2 28 21 - 32 mmol/L LAB CHEMISTRY METHOD 05/15/2025 10:22 AM [facility] Anion Gap 5 3 - 11 LAB CHEMISTRY METHOD 05/15/2025 10:22 AM [facility] Glucose 96 70 - 100 mg/dL LAB CHEMISTRY METHOD 05/15/2025 10:22 AM [facility] BUN 9 5 - 25 mg/dL LAB CHEMISTRY METHOD 05/15/2025 10:22 AM [facility] Creatinine 1.34(H) 0.50 - 1.10 mg/dL LAB CHEMISTRY METHOD 05/15/2025 10:22 AM [facility] LAB eGFR 41(L) >=60 mL/min/1. 73m2 LAB CHEMISTRY METHOD 05/15/2025 10:22 AM [facility] Comment:Calculation based on the Chronic Kidney Disease Epidemiology Collaboration (CKD-EPI) equation refit without adjustment for race. BUN/Creatinine Ratio 6.7 LAB CHEMISTRY METHOD 05/15/2025 10:22 AM [facility] Calcium 8.8 8.5 - 10.5 mg/dL LAB CHEMISTRY METHOD 05/15/2025 10:22 AM [facility] AST (SGOT) 15 10 - 42 unit/L LAB CHEMISTRY METHOD 05/15/2025 10:22 AM [facility] ALT (SGPT) 13 10 - 60 unit/L LAB CHEMISTRY METHOD 05/15/2025 10:22 AM [facility] Alkaline Phosphatase 77 42 - 121 unit/L LAB CHEMISTRY METHOD 05/15/2025 10:22 AM [facility] Total Protein 5.2(L) 6.0 - 8.0 g/dL LAB CHEMISTRY METHOD 05/15/2025 10:22 AM [facility] Albumin 2.7(L) 3.2 - 5.0 g/dL LAB CHEMISTRY METHOD 05/15/2025 10:22 AM [facility] Total Bilirubin 0.3 0.0 - 1.4 mg/dL LAB CHEMISTRY METHOD 05/15/2025 10:22 AM [facility] Blood Venous blood specimen / Unknown Venipuncture / Unknown 05/15/2025 5:12 AM EDT 05/15/2025 8:47 AM EDT us Yared Villa MD LAB BLOOD ORDERABLES Final Resu lt [facility] [address] [place] [address], * (ABNORMAL) Complete blood count (05/15/2025 5:12 AM EDT) WBC 5.3 4.8 - 10.8 K/mcL LAB HEMETOLOGY METHOD 05/15/2025 9:47 AM EDT [facility] RBC 3.30(L) 3.80 - 4.80 M/mcL LAB HEMETOLOGY METHOD 05/15/2025 9:47 AM [facility] Hemoglobin 10.1(L) 11.5 - 16.0 g/dL LAB HEMETOLOGY METHOD 05/15/2025 9:47 AM [facility] Hematocrit 31.8(L) 35.0 - 47.0 % LAB HEMETOLOGY METHOD 05/15/2025 9:47 AM [facility] MCV 97.5 79.0 - 98.0 FL LAB HEMETOLOGY METHOD 05/15/2025 9:47 AM [facility] MCH 31.0 27.0 - 32.0 pcg LAB HEMETOLOGY METHOD 05/15/2025 9:47 AM [facility] MCHC 31.8(L) 32.0 - 37.0 g/dL LAB HEMETOLOGY METHOD 05/15/2025 9:47 AM [facility] RDW 12.7 11.0 - 15.0 % LAB HEMETOLOGY METHOD 05/15/2025 9:47 AM [facility] Platelets 257 130 - 400 K/mcL LAB HEMETOLOGY METHOD 05/15/2025 9:47 AM [facility] MPV 10.9 7.0 - 11.0 FL LAB HEMETOLOGY METHOD 05/15/2025 9:47 AM [facility] NRBC 0.0 <1.0 % LAB HEMETOLOGY METHOD 05/15/2025 9:47 AM [facility] NRBC Absolute 0.00 <0.10 K/mcL LAB HEMETOLOGY METHOD 05/15/2025 9:47 AM [facility] Blood Venous blood specimen / Unknown Venipuncture / Unknown 05/15/2025 5:12 AM EDT 05/15/2025 8:47 AM EDT us Yared Villa MD LAB BLOOD ORDERABLES Final Resu lt [facility] [address] [place] [address], documented in this encounter Visit Diagnoses Diagnosis Essential (primary) hypertension Unspecified essential hypertension Other hyperlipidemia Type 2 diabetes mellitus with other diabetic kidney complication (CMS/HCC V24, CMS/HCC V28) Muscle weakness (generalized) documented in this encounter Care Teams Junior Mechanical Engineer Relationship Specialty Start Date End Date John Herrera NP [address] [place], [place] PCP - General 05/30/23 documented as of this encounter
--- OUTSIDE RECORDS SUMMARY | 2025-07-13 12:09 | XMS_ITS | Encounter Summary ---
Author Organization [facility] Address [address] [place] [address] Care Team Providers Care Early Childhood Education Instructor Name Role Phone John Herrera ARAM Primary Care Provider Encounter Details Date Type Department Care Team (Late Contact Info) Description 05/18/2025 Lab Requisition [facility] - Main Lab [address] [facility] [place] [address] Yared Villa MD [address] [place] [address] Essential (primary) hypertension; Type 2 [...] Description 08/09/2025 11:00 AM EST Office Visit [facility] Hematology Oncology [address] [place] [phone] Ceasar Colon MD [address] [place], [place] [phone] documented as of this encounter Procedures Procedure Name Priority Date/Time Associated Diagnosis Comments COMPLETE BLOOD COUNT Routine 05/19/2025 5:10 AM EDT Essential (primary) hypertension Type 2 diabetes mellitus with other diabetic kidney complication (CMS/HCC V24, [facility] V28) Other hyperlipidemia Muscle weakness (generalized) BASIC METABOLIC PANEL Routine 05/19/2025 5:10 AM EDT Essential (primary) hypertension Type 2 diabetes mellitus with other diabetic kidney complication ([facility] V24, [facility] V28) Other hyperlipidemia Muscle weakness (generalized) documented in this encounter Results * (ABNORMAL) Basic metabolic panel (05/19/2025 5:10 AM EDT) [facility] Sodium 139 133 - 145 mmol/L LAB CHEMISTRY METHOD 05/19/2025 10:55 AM [facility] Potassium 5.1 3.5 - 5.5 mmol/L LAB CHEMISTRY METHOD 05/19/2025 10:55 AM [facility] LAB Comment:Hemolysis present Chloride 108 96 - 110 mmol/L LAB CHEMISTRY METHOD 05/19/2025 10:55 AM [facility] CO2 25 21 - 32 mmol/L LAB CHEMISTRY METHOD 05/19/2025 10:55 AM [facility] Anion Gap 6 3 - 11 LAB CHEMISTRY METHOD 05/19/2025 10:55 AM [facility] Glucose 88 70 - 100 mg/dL LAB CHEMISTRY METHOD 05/19/2025 10:55 AM [facility] BUN 15 5 - 25 mg/dL LAB CHEMISTRY METHOD 05/19/2025 10:55 AM [facility] Creatinine 1.21(H) 0.50 - 1.10 mg/dL LAB CHEMISTRY METHOD 05/19/2025 10:55 AM [facility] eGFR 46(L) >=60 mL/min/1. 73m2 LAB CHEMISTRY METHOD 05/19/2025 10:55 AM [facility] Comment:Calculation based on the Chronic Kidney Disease Epidemiology Collaboration (CKD-EPI) equation refit without adjustment for race. BUN/Creatinine Ratio 12.4 LAB CHEMISTRY METHOD 05/19/2025 10:55 AM EDT [facility] Calcium 8.9 8.5 - 10.5 mg/dL LAB CHEMISTRY METHOD 05/19/2025 10:55 AM [facility] Blood Venous blood specimen / Unknown Venipuncture / Unknown 05/19/2025 5:10 AM EDT 05/19/2025 10:15 AM EDT us Yared Villa MD LAB BLOOD ORDERABLES Final Resu lt [facility] [address] [place] [address], * (ABNORMAL) Complete blood count (05/19/2025 5:10 AM EDT) WBC 6.0 4.8 - 10.8 K/mcL LAB HEMETOLOGY METHOD 05/19/2025 10:30 AM [facility] RBC 3.40(L) 3.80 - 4.80 M/mcL LAB HEMETOLOGY METHOD 05/19/2025 10:30 AM [facility] Hemoglobin 10.7(L) 11.5 - 16.0 g/dL LAB HEMETOLOGY METHOD 05/19/2025 10:30 AM [facility] Hematocrit 33.6(L) 35.0 - 47.0 % LAB HEMETOLOGY METHOD 05/19/2025 10:30 AM [facility] MCV 98.2(H) 79.0 - 98.0 FL LAB HEMETOLOGY METHOD 05/19/2025 10:30 AM [facility] MCH 31.3 27.0 - 32.0 pcg LAB HEMETOLOGY METHOD 05/19/2025 10:30 AM [facility] MCHC 31.8(L) 32.0 - 37.0 g/dL LAB HEMETOLOGY METHOD 05/19/2025 10:30 AM EDT [facility] RDW 12.6 11.0 - 15.0 % LAB HEMETOLOGY METHOD 05/19/2025 10:30 AM EDT [facility] Platelets 213 130 - 400 K/mcL LAB HEMETOLOGY METHOD 05/19/2025 10:30 AM EDT [facility] MPV 11.5(H) 7.0 - 11.0 FL LAB HEMETOLOGY METHOD 05/19/2025 10:30 AM EDT [facility] NRBC 0.0 <1.0 % LAB HEMETOLOGY METHOD 05/19/2025 10:30 AM EDT [facility] NRBC Absolute 0.00 <0.10 K/mcL LAB HEMETOLOGY METHOD 05/19/2025 10:30 AM EDT [facility] Blood Venous blood specimen / Unknown Venipuncture / Unknown 05/19/2025 5:10 AM EDT 05/19/2025 10:20 AM EDT us Yared Villa MD LAB BLOOD ORDERABLES Final Resu lt [facility] [address] [place] [address], documented in this encounter Visit Diagnoses Diagnosis Essential (primary) hypertension Unspecified essential hypertension Type 2 diabetes mellitus with other diabetic kidney complication (CMS/HCC V24, CMS/HCC V28) Other hyperlipidemia Muscle weakness (generalized) documented in this encounter Care Teams Early Childhood Education Instructor Relationship Specialty Start Date End Date John Herrera NP [address] [place], [place] PCP - General 05/30/23 documented as of this encounter
--- OUTSIDE RECORDS SUMMARY | 2025-07-13 12:09 | XMS_ITS | Clinical Summary ---
Author Organization [facility] Address [address] [place] [address] Phone Care Team Providers Care Wire Brusher Name Role Phone John Herrera NP Primary [...] Department Care Team Description 05/18/2025 Lab Requisition [facility] - Main Lab 299 [facility] [place] [address] Yared Villa MD Essential (primary) hypertension; Type 2 diabetes mellitus with other diabetic kidney complication ([facility] V24, [facility] V28); Other hyperlipidemia; Muscle weakness (generalized) 05/16/2025 Lab Requisition [facility] Lab [address] [place] [address] Yared Villa MD Type 2 diabetes mellitus with other diabetic kidney complication ([facility] V24, [facility] V28); Essential (primary) hypertension; Muscle weakness (generalized); Other hyperlipidemia 05/15/2025 Lab Requisition [facility] Lab [address] [place] [address] Yared Villa MD Essential (primary) hypertension; Other hyperlipidemia; Type 2 diabetes mellitus with other diabetic kidney complication ([facility] V24, [facility] V28); Muscle weakness (generalized) from Last 3 [...] Description 08/09/2025 11:00 AM EST Office Visit [facility] Hematology Oncology [address] [place] [phone] Ceasar Colon MD [address] [place] [address] Health Maintenance Due Date Last Done Comments [...] of3 resultswithin the time period is included. [facility] WBC 6.0 4.8 - 10.8 K/mcL LAB HEMETOLOGY METHOD 05/19/2025 10:[address] [facility] LAB RBC 3.40(L) 3.80 - 4.80 M/mcL LAB HEMETOLOGY METHOD 05/19/2025 10:[address] [facility] LAB Hemoglobin 10.7(L) 11.5 - 16.0 g/dL LAB HEMETOLOGY METHOD 05/19/2025 10:[address] [facility] LAB Hematocrit 33.6(L) 35.0 - 47.0 % LAB HEMETOLOGY METHOD 05/19/2025 10:[address] [facility] LAB MCV 98.2(H) 79.0 - 98.0 FL LAB HEMETOLOGY METHOD 05/19/2025 10:[address] [facility] LAB MCH 31.3 27.0 - 32.0 pcg LAB HEMETOLOGY METHOD 05/19/2025 10:[address] [facility] LAB MCHC 31.8(L) 32.0 - 37.0 g/dL LAB HEMETOLOGY METHOD 05/19/2025 10:[address] [facility] LAB RDW 12.6 11.0 - 15.0 % LAB HEMETOLOGY METHOD 05/19/2025 10:[address] [facility] LAB Platelets 213 130 - 400 K/mcL LAB HEMETOLOGY METHOD 05/19/2025 10:[address] [facility] LAB MPV 11.5(H) 7.0 - 11.0 FL LAB HEMETOLOGY METHOD 05/19/2025 10:[address] [facility] LAB NRBC 0.0 <1.0 % LAB HEMETOLOGY METHOD 05/19/2025 10:[address] [facility] LAB NRBC Absolute 0.00 <0.10 K/[facility] LAB HEMETOLOGY METHOD 05/19/2025 10:[address] [facility] LAB Blood Venous blood specimen / Unknown Venipuncture / Unknown 05/19/2025 5:10 AM EDT 05/19/2025 10:20 AM EDT us Yared Villa MD LAB BLOOD ORDERABLES Final Resu lt [facility] LAB [address] [place] [address], [place] [phone] * (ABNORMAL) Basic metabolic panel (05/19/2025 5:10 AM EDT) Sodium 139 133 - 145 mmol/L LAB CHEMISTRY METHOD 05/19/2025 10:[address] [facility] LAB Potassium 5.1 3.5 - 5.5 mmol/L LAB CHEMISTRY METHOD 05/19/2025 10:[address] [facility] LAB Comment:Hemolysis present Chloride 108 96 - 110 mmol/L LAB CHEMISTRY METHOD 05/19/2025 10:[address] [facility] LAB CO2 25 21 - 32 mmol/L LAB CHEMISTRY METHOD 05/19/2025 10:[address] [facility] LAB Anion Gap 6 3 - 11 LAB CHEMISTRY METHOD 05/19/2025 10:[address] [facility] LAB Glucose 88 70 - 100 mg/dL LAB CHEMISTRY METHOD 05/19/2025 10:[address] [facility] LAB BUN 15 5 - 25 mg/dL LAB CHEMISTRY METHOD 05/19/2025 10:[address] [facility] LAB Creatinine 1.21(H) 0.50 - 1.10 mg/dL LAB CHEMISTRY METHOD 05/19/2025 10:[address] [facility] LAB eGFR 46(L) >=60 mL/min/1. 73m2 LAB CHEMISTRY METHOD 05/19/2025 10:[address] [facility] LAB Comment:Calculation based on the Chronic Kidney Disease Epidemiology Collaboration (CKD-EPI) equation refit without adjustment for race. BUN/Creatinine Ratio 12.4 LAB CHEMISTRY METHOD 05/19/2025 10:55 AM EDT [facility] LAB Calcium 8.9 8.5 - 10.5 mg/dL LAB CHEMISTRY METHOD 05/19/2025 10:55 AM EDT [facility] LAB Blood Venous blood specimen / Unknown Venipuncture / Unknown 05/19/2025 5:10 AM EDT 05/19/2025 10:15 AM EDT us Yared Villa MD LAB BLOOD ORDERABLES Final Resu lt [facility] LAB [address] [place] [address], [place] [phone] * (ABNORMAL) Comprehensive metabolic panel (05/16/2025 5:30 AM EDT) Only the most recent of2 resultswithin the time period is included. Sodium 141 133 - 145 mmol/L LAB CHEMISTRY METHOD 05/16/2025 1:[address] [facility] LAB Potassium 3.9 3.5 - 5.5 mmol/L LAB CHEMISTRY METHOD 05/16/2025 1:[address] [facility] LAB Chloride 108 96 - 110 mmol/L LAB CHEMISTRY METHOD 05/16/2025 1:30 PM T [facility] LAB CO2 25 21 - 32 mmol/L LAB CHEMISTRY METHOD 05/16/2025 1:[address] [facility] LAB Anion Gap 8 3 - 11 LAB CHEMISTRY METHOD 05/16/2025 1:[address] [facility] LAB Glucose 99 70 - 100 mg/dL LAB CHEMISTRY METHOD 05/16/2025 1:[address] [facility] LAB BUN 11 5 - 25 mg/dL LAB CHEMISTRY METHOD 05/16/2025 1:[address] [facility] LAB Creatinine 1.24(H) 0.50 - 1.10 mg/dL LAB CHEMISTRY METHOD 05/16/2025 1:[address] [facility] LAB eGFR 45(L) >=60 mL/min/1. 73m2 LAB CHEMISTRY METHOD 05/16/2025 1:[address] [facility] LAB Comment:Calculation based on the Chronic Kidney Disease Epidemiology Collaboration (CKD-EPI) equation refit without adjustment for race. BUN/Creatinine Ratio 8.9 LAB CHEMISTRY METHOD 05/16/2025 1:[address] [facility] LAB Calcium 8.8 8.5 - 10.5 mg/dL LAB CHEMISTRY METHOD 05/16/2025 1:[address] [facility] LAB AST (SGOT) 21 10 - 42 unit/L LAB CHEMISTRY METHOD 05/16/2025 1:[address] [facility] LAB ALT (SGPT) 14 10 - 60 unit/L LAB CHEMISTRY METHOD 05/16/2025 1:[address] [facility] LAB Alkaline Phosphatase 94 42 - 121 unit/L LAB CHEMISTRY METHOD 05/16/2025 1:[address] [facility] LAB Total Protein 5.7(L) 6.0 - 8.0 g/dL LAB CHEMISTRY METHOD 05/16/2025 1:[address] [facility] LAB Albumin 2.8(L) 3.2 - 5.0 g/dL LAB CHEMISTRY METHOD 05/16/2025 1:[address] [facility] LAB Total Bilirubin 0.4 0.0 - 1.4 mg/dL LAB CHEMISTRY METHOD 05/16/2025 1:[address] [facility] LAB Blood Venous blood specimen / Unknown 05/16/2025 5:30 AM EDT 05/16/2025 11:19 AM EDT us Yared Villa MD LAB BLOOD ORDERABLES Final Resu lt [facility] [place] [facility] LAB [address] [place] [address], from Last 3 Months Insurance MEDICARE HUMAN Care Teams Wire Brusher Relationship Specialty Start Date End Date John Herrera NP [address] [facility] [place] PCP - General 05/30/23
--- OUTSIDE RECORDS SUMMARY | 2025-07-13 12:09 | XMS_ITS | Clinical Summary ---
Author Organization [facility] Address [address] [place] [address] Care Team Providers Care Stain Wiper Name Role Phone John Herrera Primary Care Provider [phone] Allergies Active Allergy Reactions Criticality Noted Date [...] age to complete this topic Care Teams Stain Wiper Relationship Specialty Start Date End Date John Herrera [address] [facility] [place] [address] PCP - General Family Medicine 05/30/23
== END 2025-07-13 10:02 | disposition home or self-care (01) ==
LOC: HO.HAP 10:01
PROVIDERS: Visit Provider Nurse Practitioner Family
DX: Z13.89 Encounter for screening for other disorder (principal)

== ENCOUNTER 2025-07-29 10:12 | Outpatient (REF) | payer SELFPAY ==
--- OUTSIDE RECORDS SUMMARY | 2024-03-26 06:20 | XMS_ITS ---
Author Organization [facility] Address [address] [place] [address] Care Team Providers Care Cork Sorter Name Role Phone CHANDU CHISHOLM Primary Care Provider Taiwo Azar Unavailable [phone] REASON FOR VISIT diarrhea,wt loss,nausea Problems Problem Type SNOMED Code ICD Code Onset Dates Problem Status W/U Status Risk Notes Problem Diverticular disease of colon (165617590) Diverticulosis of large intestine without perforation or abscess without bleeding (K57.30) Active confirmed Encounters Encounter Location Date Provider Diagnosis [facility] [address] [place], [place] [id number] 03/26/2024 Taiwo Mcintosh Diarrhea R19.7 ; W eight loss R63.4 ; Diverticulosis of large intestine without perforation or abscess without bleeding K57.30 ; Other hemorrhoids K64.8 ; Nausea R11.0 and Hiatal hernia K44.9 Assessments Encounter Date Diagnosis (ICD Code) Assessment Notes Treatment Notes Treatment Clinical Notes Section Notes 03/26/2024 Diarrhea (ICD-10 - R19.7) 03/26/2024 Weight loss (ICD-10 - R63.4) 03/26/2024 Diverticulosis of large intestine without perforation or abscess without bleeding (ICD-10 - K57.30) 03/26/2024 Other hemorrhoids (ICD-10 - K64.8) 03/26/2024 Nausea (ICD-10 - R11.0) 03/26/2024 Hiatal hernia (ICD-10 - K44.9) Plan Of Treatment No Information Progress Notes * NANCY VORA CDOB: 7 (80 yo F)Acc No.[id number]:03/26/2024 EGD and COL/MAC Patient: NANCY COHEN Provider: Domo Mcintosh MD :1945 A ge:78 Y S ex:Female Date:03/26/2024 Address:[address] [address] , [id number] Pcp:CHANDU CHISHOLM Subjective: * Chief Complaints: * 1 . Diarrhea,wt loss,nausea. * Medical History: Objective: * Vitals: Assessment: * Assessment: 1. D iarrhea - R19.7 (Primary) 2 . W eight loss - R63.4 3 .?Diverticulosis of large intestine without perforation or abscess without bleeding - K57.30? 4. O ther hemorrhoids - K64.8 5 . N ausea - R11.0 ?6. H iatal hernia - K44.9 Plan: * Treatment: * Procedure Codes: 4 5380 COLONOSCOPY AND BIOPSY, 0529F INTRVL 3+YRS PTS CLNSCP DOCD, 0528F RCMND FLW-UP 10 YRS DOCD, Modifiers: 8P , 43990 UPPER GI ENDOSCOPY, BIOPSY * * The named appointment provid er may or may not be the originator of this progress note, and it is not deemed complete until electronically signed by the appointment provider. Sign off status: Pending * Provider: Domo Mcintosh MD Date: 0 03/26/2024 Generated for Leidy elaine/Manolo/Sunitting on: 09/28/2024 12:00 PM EST
--- OUTSIDE RECORDS SUMMARY | 2025-07-29 12:01 | XMS_ITS | Encounter Summary ---
Author Organization [facility] Address [address] [place] [address] Phone Care Team Providers Care Acquisition Associate Name Role Phone John Herrera NP Primary Care Provider [phone] Reason for Visit * Reason Comments Med Refill Encounter Details Date Type Department Care Team (Late st Contact Info) Description 11/15/2023 Refill [facility] [address] [place] [phone] Karson Law MD Social History Tobacco Use [...] on filedocumented in this encounter Care Teams Acquisition Associate Relationship Specialty Start Date End Date John Herrera NP [address] [facility] [place] [address] PCP - General Nurse Practitioner 09/05/21 documented as of this encounter
--- OUTSIDE RECORDS SUMMARY | 2025-07-29 12:01 | XMS_ITS | Clinical Summary ---
Author Organization [facility] Address [address] [place] [address] Phone Care Team Providers Care Book Sewer Name Role Phone John Herrera NP Primary Care Provider [phone] Allergies Active Allergy Reactions Criticality Noted Date [...] Department Care Team Description 05/18/2025 Lab Requisition [facility] - Main Lab [address] [facility] [place] [address] Yared Villa MD Essential (primary) hypertension; Type 2 diabetes mellitus with other diabetic kidney complication ([facility] V24, [facility] V28); Other hyperlipidemia; Muscle weakness (generalized) 05/16/2025 Lab Requisition [facility] Lab [address] [place] [address] Yared Villa MD Type 2 diabetes mellitus with other diabetic kidney complication ([facility] V24, [facility] V28); Essential (primary) hypertension; Muscle weakness (generalized); Other hyperlipidemia 05/15/2025 Lab Requisition [facility] Lab [address] [place] [address] Yared Villa MD Essential (primary) hypertension; Other hyperlipidemia; Type 2 diabetes mellitus with other diabetic kidney complication ([facility] V24, [facility] V28); Muscle weakness (generalized) from Last 3 [...] [facility] Hematology Oncology [address] [place] [phone] Ceasar Colon MD [address] [place] [address] Health Maintenance Due Date Last Done Comments [...] of3 resultswithin the time period is included. [facility] WBC 6.0 4.8 - 10.8 K/mcL LAB HEMETOLOGY METHOD 05/19/2025 10:30 AM [facility] LAB RBC 3.40(L) 3.80 - 4.80 M/mcL LAB HEMETOLOGY METHOD 05/19/2025 10:30 AM [facility] LAB Hemoglobin 10.7(L) 11.5 - 16.0 g/dL LAB HEMETOLOGY METHOD 05/19/2025 10:30 AM [facility] LAB Hematocrit 33.6(L) 35.0 - 47.0 % LAB HEMETOLOGY METHOD 05/19/2025 10:30 AM [facility] LAB MCV 98.2(H) 79.0 - 98.0 FL LAB HEMETOLOGY METHOD 05/19/2025 10:30 AM [facility] LAB MCH 31.3 27.0 - 32.0 pcg LAB HEMETOLOGY METHOD 05/19/2025 10:30 AM [facility] LAB MCHC 31.8(L) 32.0 - 37.0 g/dL LAB HEMETOLOGY METHOD 05/19/2025 10:30 AM [facility] LAB RDW 12.6 11.0 - 15.0 % LAB HEMETOLOGY METHOD 05/19/2025 10:30 AM [facility] LAB Platelets 213 130 - 400 K/mcL LAB HEMETOLOGY METHOD 05/19/2025 10:30 AM [facility] LAB MPV 11.5(H) 7.0 - 11.0 FL LAB HEMETOLOGY METHOD 05/19/2025 10:30 AM [facility] LAB NRBC 0.0 <1.0 % LAB HEMETOLOGY METHOD 05/19/2025 10:30 AM [facility] LAB NRBC Absolute 0.00 <0.10 K/[facility] LAB HEMETOLOGY METHOD 05/19/2025 10:30 AM [facility] LAB Blood Venous blood specimen / Unknown Venipuncture / Unknown 05/19/2025 5:10 AM EDT 05/19/2025 10:20 AM EDT us Yared Villa MD LAB BLOOD ORDERABLES Final Resu lt [facility] LAB [address] [place] [address], [place] [phone] * (ABNORMAL) Basic metabolic panel (05/19/2025 5:10 AM EDT) Sodium 139 133 - 145 mmol/L LAB CHEMISTRY METHOD 05/19/2025 10:55 AM [facility] LAB Potassium 5.1 3.5 - 5.5 mmol/L LAB CHEMISTRY METHOD 05/19/2025 10:55 AM [facility] LAB Comment:Hemolysis present Chloride 108 96 - 110 mmol/L LAB CHEMISTRY METHOD 05/19/2025 10:55 AM [facility] LAB CO2 25 21 - 32 mmol/L LAB CHEMISTRY METHOD 05/19/2025 10:55 AM [facility] LAB Anion Gap 6 3 - 11 LAB CHEMISTRY METHOD 05/19/2025 10:55 AM [facility] LAB Glucose 88 70 - 100 mg/dL LAB CHEMISTRY METHOD 05/19/2025 10:55 AM [facility] LAB BUN 15 5 - 25 mg/dL LAB CHEMISTRY METHOD 05/19/2025 10:55 AM [facility] LAB Creatinine 1.21(H) 0.50 - 1.10 mg/dL LAB CHEMISTRY METHOD 05/19/2025 10:55 AM [facility] LAB eGFR 46(L) >=60 mL/min/1. 73m2 LAB CHEMISTRY METHOD 05/19/2025 10:55 AM [facility] LAB [...] [facility] [address] [place] [address], [place] [phone] * (ABNORMAL) Comprehensive metabolic panel (05/16/2025 5:30 [...] 8.9 LAB CHEMISTRY METHOD 05/16/2025 1:30 PM [facility] LAB Calcium 8.8 8.5 - 10.5 mg/dL LAB CHEMISTRY METHOD 05/16/2025 1:30 PM [facility] LAB AST (SGOT) 21 10 - 42 unit/L LAB CHEMISTRY METHOD 05/16/2025 1:30 PM [facility] LAB ALT (SGPT) 14 10 - 60 unit/L LAB CHEMISTRY METHOD 05/16/2025 1:30 PM [facility] LAB Alkaline Phosphatase 94 42 - 121 unit/L LAB CHEMISTRY METHOD 05/16/2025 1:30 PM [facility] LAB Total Protein 5.7(L) 6.0 - 8.0 g/dL LAB CHEMISTRY METHOD 05/16/2025 1:30 PM [facility] LAB Albumin 2.8(L) 3.2 - 5.0 g/dL LAB CHEMISTRY METHOD 05/16/2025 1:30 PM [facility] LAB Total Bilirubin 0.4 0.0 - 1.4 mg/dL LAB CHEMISTRY METHOD 05/16/2025 1:30 PM [facility] LAB Blood Venous blood specimen / Unknown 05/16/2025 5:30 AM EDT 05/16/2025 11:19 AM EDT us Yared Villa MD LAB BLOOD ORDERABLES Final Resu lt [facility] [place] [facility] LAB [address] [place] [address], from Last 3 Months Insurance MEDICARE HUMAN Care Teams Book Sewer Relationship Specialty Start Date End Date [facility] Herrera NP [address] [facility] [place] [place] PCP - General 05/30/23
--- OUTSIDE RECORDS SUMMARY | 2025-07-29 12:01 | XMS_ITS | Encounter Summary ---
Author Organization [facility] Address [address] [place] [address] Care Team Providers Care Skiver Sock Linings Name Role Phone John Herrera ARAM Primary Care Provider [phone] Encounter Details Date Type Department Care Team (Late Contact Info) Description 05/15/2025 Lab Requisition [facility] - Main Lab [address] [facility] [place] [address] Yared Villa MD [address] [place] [address] Essential (primary) hypertension; Other hyperlipidemia; [...] [facility] H[facility] [address] [place] [address] Ceasar Colon MD [address] [place] [address] documented as of this encounter Procedures Procedure Name Priority Date/Time Associated Diagnosis Comments COMPLETE BLOOD COUNT Routine 05/15/2025 5:12 AM EDT Essential (primary) hypertension Other hyperlipidemia Type 2 diabetes mellitus with other diabetic kidney complication ([facility] V24, [facility] V28) Muscle weakness (generalized) COMPREHENSIVE METABOLIC PANEL Routine 05/15/2025 5:12 AM EDT Essential (primary) hypertension Other hyperlipidemia Type 2 diabetes mellitus with other diabetic kidney complication ([facility] V24, [facility] V28) Muscle weakness (generalized) documented in this encounter Results * (ABNORMAL) Comprehensive metabolic panel (05/15/2025 5:12 AM EDT) Sodium 140 133 - 145 mmol/L LAB CHEMISTRY METHOD 05/15/2025 10:22 AM [facility] LAB Potassium 4.2 3.5 - 5.5 mmol/L LAB CHEMISTRY METHOD 05/15/2025 10:22 AM [facility] LAB Chloride 107 96 - 110 mmol/L LAB CHEMISTRY METHOD 05/15/2025 10:22 AM [facility] LAB CO2 28 21 - 32 mmol/L LAB CHEMISTRY METHOD 05/15/2025 10:22 AM [facility] LAB Anion Gap 5 3 - 11 LAB CHEMISTRY METHOD 05/15/2025 10:22 AM [facility] LAB Glucose 96 70 - 100 mg/dL LAB CHEMISTRY METHOD 05/15/2025 10:22 AM [facility] LAB BUN 9 5 - 25 mg/dL LAB CHEMISTRY METHOD 05/15/2025 10:22 AM [facility] LAB Creatinine 1.34(H) 0.50 - 1.10 mg/dL LAB CHEMISTRY METHOD 05/15/2025 10:22 AM [facility] LAB eGFR 41(L) >=60 mL/min/1. 73m2 LAB CHEMISTRY METHOD 05/15/2025 10:22 AM [facility] LAB Comment:Calculation based on the Chronic Kidney Disease Epidemiology Collaboration (CKD-EPI) equation refit without adjustment for race. BUN/Creatinine Ratio 6.7 LAB CHEMISTRY METHOD 05/15/2025 10:22 AM [facility] LAB Calcium 8.8 8.5 - 10.5 mg/dL LAB CHEMISTRY METHOD 05/15/2025 10:22 AM [facility] LAB AST (SGOT) 15 10 - 42 unit/L LAB CHEMISTRY METHOD 05/15/2025 10:22 AM [facility] LAB ALT (SGPT) 13 10 - 60 unit/L LAB CHEMISTRY METHOD 05/15/2025 10:22 AM [facility] LAB Alkaline Phosphatase 77 42 - 121 unit/L LAB CHEMISTRY METHOD 05/15/2025 10:22 AM [facility] LAB Total Protein 5.2(L) 6.0 - 8.0 g/dL LAB CHEMISTRY METHOD 05/15/2025 10:22 AM [facility] LAB Albumin 2.7(L) 3.2 - 5.0 g/dL LAB CHEMISTRY METHOD 05/15/2025 10:22 AM [facility] LAB Total Bilirubin 0.3 0.0 - 1.4 mg/dL LAB CHEMISTRY METHOD 05/15/2025 10:22 AM [facility] LAB Blood Venous blood specimen / Unknown Venipuncture / Unknown 05/15/2025 5:12 AM EDT 05/15/2025 8:47 AM EDT us Yared Villa MD LAB BLOOD ORDERABLES Final Resu lt [facility] LAB [address] [place] [address], * (ABNORMAL) Complete blood count (05/15/2025 5:12 AM EDT) WBC 5.3 4.8 - 10.8 K/mcL LAB HEMETOLOGY METHOD 05/15/2025 9:47 AM EDT [facility] LAB RBC 3.30(L) 3.80 - 4.80 M/mcL LAB HEMETOLOGY METHOD 05/15/2025 9:47 AM [facility] LAB Hemoglobin 10.1(L) 11.5 - 16.0 g/dL LAB HEMETOLOGY METHOD 05/15/2025 9:47 AM [facility] LAB Hematocrit 31.8(L) 35.0 - 47.0 % LAB HEMETOLOGY METHOD 05/15/2025 9:47 AM [facility] LAB MCV 97.5 79.0 - 98.0 FL LAB HEMETOLOGY METHOD 05/15/2025 9:47 AM [facility] LAB MCH 31.0 27.0 - 32.0 pcg LAB HEMETOLOGY METHOD 05/15/2025 9:47 AM [facility] LAB MCHC 31.8(L) 32.0 - 37.0 g/dL LAB HEMETOLOGY METHOD 05/15/2025 9:47 AM [facility] LAB RDW 12.7 11.0 - 15.0 % LAB HEMETOLOGY METHOD 05/15/2025 9:47 AM [facility] LAB Platelets 257 130 - 400 K/mcL LAB HEMETOLOGY METHOD 05/15/2025 9:47 AM [facility] LAB MPV 10.9 7.0 - 11.0 FL LAB HEMETOLOGY METHOD 05/15/2025 9:47 AM [facility] LAB NRBC 0.0 <1.0 % LAB HEMETOLOGY METHOD 05/15/2025 9:47 AM [facility] LAB NRBC Absolute 0.00 <0.10 K/mcL LAB HEMETOLOGY METHOD 05/15/2025 9:47 AM [facility] LAB Blood Venous blood specimen / Unknown Venipuncture / Unknown 05/15/2025 5:12 AM EDT 05/15/2025 8:47 AM EDT us Yared Villa MD LAB BLOOD ORDERABLES Final Resu lt [facility] LAB [address] [place] [address], documented in this encounter Visit Diagnoses Diagnosis Essential (primary) hypertension Unspecified essential hypertension Other hyperlipidemia Type 2 diabetes mellitus with other diabetic kidney complication (CMS/HCC V24, CMS/HCC V28) Muscle weakness (generalized) documented in this encounter Care Teams Skiver Sock Linings Relationship Specialty Start Date End Date John Herrera NP [address] [place], [place] PCP - General 05/30/23 documented as of this encounter
--- OUTSIDE RECORDS SUMMARY | 2025-07-29 12:01 | XMS_ITS | Patient Health Record ---
Author Organization [facility] Address [address] [place] [address] Care Team Providers Care Test Lab Technician Name Role Phone CHANDU CHISHOLM Primary Care Provider Taiwo Azar [phone] Allergies Allergen (clinical drug ingredient) Drug/Non Drug Allergy documented on EMR Reaction Allergy Type Onset Date Status Substance with sulfonamide structure and antibacterial mechanism of action (substance) Sulfa Antibiotics Unknown Drug Allergy Active meloxicam Meloxicam Unknown Drug Allergy Active gabapentin Gabapentin Unknown Drug Allergy Activ e penicillin G Penicillin G Sodium Unknown Drug Allergy Active ciprofloxacin Cipro Unknown Drug Allergy Act jean carlos k flex (uncoded) Unknown Allergy Act jean carlos Reason For Referral No Information Medications Medication SIG (Take, Route, Frequency, Duration) Notes Start Date End Date Status Omeprazole 20 MG TAKE 1 CAPSULE BY [facility] EVERY MORNING; Duration: 30 Active Imodium A-D [...] Problem Screening for malignant neoplasm of colon (694705734) Encounter for screening for malignant neoplasm of colon (Z12.11) Active confirmed Problem Diarrhea (13403201) Diarrhea (R19.7) Active con firmed Problem Weight loss (772616644) Weight loss (R63.4) Active confirmed Problem Diverticular disease of colon (358313044) Diverticulosis of large intestine without perforation or abscess without bleeding (K57.30) Active confirmed Problem Nausea (078292337) Nausea (R11.0) Active confir med Problem Preprocedural examination (353800107073628) Preprocedural examination (Z01.818) Active confirmed Problem Ischemic colitis (42956398) Ischemic colitis (K55.9) Active confirmed Problem Essential hypertension (02384853) Hypertension, unspecified type (I10) Active confirmed Problem jail current use of non-steroidal anti-inflammatory drug (632456791713832) Encntr long-term NSAID use (Z79.1) Active confirmed Problem Gastroesophageal reflux disease (disorder) (921617659) Chronic GERD (K21.9) Active confirmed Vital Signs Blood pressure diastolic 00 mm Hg 08/10/2024 Height 61 in 08/10/2024 Blood pressure systolic 00 mm Hg 08/10/2024 Weight 174 lbs 08/10/2024 BMI 32.87 kg/m2 08/10/2024 Encounters Encounter Location Date Provider Diagnosis [facility] [address] [place] [address] 08/10/2024 Taiwo Mcintosh Diarrhea R19.7 ; Nausea [...] Start Date Coverage End Date MEDICARE OF [place] [address] [place] [address] [id number] KAYLEEN VORA Self - patient is the insured HUMAN [address] [address] [place] [address] [id number] KAYLEEN VORA Self - patient is the insured Medical (General) History Medical History History ICD Code Denies [place],CVA,Lung disease,renal disease IDDM Hypertension Kidney stones Negative [...]
--- OUTSIDE RECORDS SUMMARY | 2025-07-29 12:01 | XMS_ITS | Encounter Summary ---
Author Organization [facility] Address [address] [place] [address] Care Team Providers Care Twister Frame Tender Name Role Phone John Herrera ARAM Primary Care Provider Encounter Details Date Type Department Care Team (Late Contact Info) Description 05/18/2025 Lab Requisition [facility] - Main Lab [address] [facility] [place] [address] Yared Villa MD [address] [place] [address] Essential (primary) hypertension; Type 2 [...] Office Visit [facility] Hematology Oncology [address] [place] [phone] Ceasar Colon MD [address] [place], [place] [phone] documented as of this encounter Procedures Procedure Name Priority Date/Time Associated Diagnosis Comments COMPLETE BLOOD COUNT Routine 05/19/2025 5:10 AM EDT Essential (primary) hypertension Type 2 diabetes mellitus with other diabetic kidney complication (CMS/HCC V24, [facility] V28) Other hyperlipidemia Muscle weakness (generalized) BASIC METABOLIC PANEL Routine 05/19/2025 5:10 AM EDT Essential (primary) hypertension Type 2 diabetes mellitus with other diabetic kidney complication ([facility] V24, [facility] V28) Other hyperlipidemia Muscle weakness (generalized) documented in this encounter Results * (ABNORMAL) Basic metabolic panel (05/19/2025 5:10 AM EDT) [facility] Sodium 139 133 - 145 mmol/L LAB CHEMISTRY METHOD 05/19/2025 10:55 AM [facility] Potassium 5.1 3.5 - 5.5 mmol/L LAB CHEMISTRY METHOD 05/19/2025 10:55 AM [facility] Comment:Hemolysis present Chloride 108 96 - 110 mmol/L LAB CHEMISTRY METHOD 05/19/2025 10:55 AM [facility] CO2 25 21 - 32 mmol/L LAB CHEMISTRY METHOD 05/19/2025 10:55 AM [facility] Anion Gap 6 3 - 11 LAB CHEMISTRY METHOD 05/19/2025 10:55 AM [facility] Glucose 88 70 - 100 mg/dL LAB CHEMISTRY METHOD 05/19/2025 10:55 AM [facility] BUN 15 5 - 25 mg/dL LAB CHEMISTRY METHOD 05/19/2025 10:55 AM [facility] Creatinine 1.21(H) 0.50 - 1.10 mg/dL LAB CHEMISTRY METHOD 05/19/2025 10:55 AM [facility] eGFR 46(L) >=60 mL/min/1. 73m2 LAB CHEMISTRY METHOD 05/19/2025 10:55 AM [facility] Comment:Calculation based on the Chronic Kidney Disease Epidemiology Collaboration (CKD-EPI) equation refit without adjustment for race. BUN/Creatinine Ratio 12.4 LAB CHEMISTRY METHOD 05/19/2025 10:55 AM EDT [facility] Calcium 8.9 8.5 - 10.5 mg/dL LAB CHEMISTRY METHOD 05/19/2025 10:55 AM [facility] Blood Venous blood specimen / Unknown Venipuncture / Unknown 05/19/2025 5:10 AM EDT 05/19/2025 10:15 AM EDT us Yared Villa MD LAB BLOOD ORDERABLES Final Resu lt [facility] [address] [place] [address], * (ABNORMAL) Complete blood count (05/19/2025 5:10 AM EDT) WBC 6.0 4.8 - 10.8 K/mcL LAB HEMETOLOGY METHOD 05/19/2025 10:30 AM [facility] RBC 3.40(L) 3.80 - 4.80 M/mcL LAB HEMETOLOGY METHOD 05/19/2025 10:30 AM [facility] Hemoglobin 10.7(L) 11.5 - 16.0 g/dL LAB HEMETOLOGY METHOD 05/19/2025 10:30 AM [facility] Hematocrit 33.6(L) 35.0 - 47.0 % LAB HEMETOLOGY METHOD 05/19/2025 10:30 AM [facility] MCV 98.2(H) 79.0 - 98.0 FL LAB HEMETOLOGY METHOD 05/19/2025 10:30 AM [facility] MCH 31.3 27.0 - 32.0 pcg LAB HEMETOLOGY METHOD 05/19/2025 10:30 AM [facility] MCHC 31.8(L) 32.0 - 37.0 g/dL LAB HEMETOLOGY METHOD 05/19/2025 10:30 AM EDT [facility] RDW 12.6 11.0 - 15.0 % LAB HEMETOLOGY METHOD 05/19/2025 10:30 AM EDT [facility] Platelets 213 130 - 400 K/mcL LAB HEMETOLOGY METHOD 05/19/2025 10:30 AM EDT [facility] MPV 11.5(H) 7.0 - 11.0 FL LAB HEMETOLOGY METHOD 05/19/2025 10:30 AM EDT [facility] NRBC 0.0 <1.0 % LAB HEMETOLOGY METHOD 05/19/2025 10:30 AM EDT [facility] NRBC Absolute 0.00 <0.10 K/mcL LAB HEMETOLOGY METHOD 05/19/2025 10:30 AM EDT [facility] Blood Venous blood specimen / Unknown Venipuncture / Unknown 05/19/2025 5:10 AM EDT 05/19/2025 10:20 AM EDT us Yared Villa MD LAB BLOOD ORDERABLES Final Resu lt [facility] [address] [place] [address], documented in this encounter Visit Diagnoses Diagnosis Essential (primary) hypertension Unspecified essential hypertension Type 2 diabetes mellitus with other diabetic kidney complication (CMS/HCC V24, CMS/HCC V28) Other hyperlipidemia Muscle weakness (generalized) documented in this encounter Care Teams Twister Frame Tender Relationship Specialty Start Date End Date John Herrera NP [address] [place], [place] PCP - General 05/30/23 documented as of this encounter
--- OUTSIDE RECORDS SUMMARY | 2025-07-29 12:01 | XMS_ITS | Clinical Summary ---
Author Organization [facility] Address [address] [place] [address] Care Team Providers Care Cart Pusher Name Role Phone John Herrera MD Primary [...] 08/11/2024 6:10 AM EST Performed at: - [address] [id number] Account Group Supervisor: Suzi Stern MD, Phone: [phone] us Karson Law MD LAB BLOOD ORDERABLES [...] AM EST Performed at: 01 - [facility] [address] [id number] Account Group Supervisor: Suzi Stern MD, Phone: [phone] Karson Law MD LAB BLOOD ORDERABLES Carol l Result [facility] 1 from Last 3 Months or Most Recently Relevant to Health Maintenance Insurance MEDICARE PART A & B [facility] SUPPLEMENT ONLY Care Teams Cart Pusher Relationship Specialty Start Date End Date John Herrera MD [address] [place] [address] PCP - General Family Medicine 02/03/24
--- OUTSIDE RECORDS SUMMARY | 2025-07-29 12:01 | XMS_ITS | Encounter Summary ---
Author Organization [facility] [address] Address [address] [place] [address] Care Team Providers Care Edm Operator Name Role Phone John Herrera ARAM Primary Care Provider Encounter Details Date Type Department Care Team (Latest Contact Info) Description 05/16/2025 Lab Requisition [facility] - Main Lab [address] [facility] [place] [address] Yared Villa MD [address] [place] [address] Type 2 diabetes mellitus with [...] 08/09/2025 11:00 AM EST Office Visit [facility] Hematology Oncology [address] [place] [address] Ceasar Colon MD [address] [place] [address] documented as of this encounter Procedures Procedure Name Priority Date/Time Associated Diagnosis Comments COMPLETE BLOOD COUNT Routine 05/16/2025 5:30 AM EDT Type 2 diabetes mellitus with other diabetic kidney complication (CMS/HCC V24, CMS/HCC V28) Essential (primary) hypertension Muscle weakness (generalized) Other hyperlipidemia COMPREHENSIVE METABOLIC PANEL Routine 05/16/2025 5:30 AM EDT Type 2 diabetes mellitus with other diabetic kidney complication ([facility] V24, [facility] V28) Essential (primary) hypertension Muscle weakness (generalized) Other hyperlipidemia documented in this encounter Results * (ABNORMAL) Comprehensive metabolic panel (05/16/2025 5:30 AM EDT) Sodium 141 133 - 145 mmol/L LAB CHEMISTRY METHOD 05/16/2025 1:[address] [facility] Potassium 3.9 3.5 - 5.5 mmol/L LAB CHEMISTRY METHOD 05/16/2025 1:[address] [facility] Chloride 108 96 - 110 mmol/L LAB CHEMISTRY METHOD 05/16/2025 1:[address] [facility] CO2 25 21 - 32 mmol/L LAB CHEMISTRY METHOD 05/16/2025 1:[address] [facility] Anion Gap 8 3 - 11 LAB CHEMISTRY METHOD 05/16/2025 1:[address] [facility] Glucose 99 70 - 100 mg/dL LAB CHEMISTRY METHOD 05/16/2025 1:[address] [facility] BUN 11 5 - 25 mg/dL LAB CHEMISTRY METHOD 05/16/2025 1:[address] [facility] Creatinine 1.24(H) 0.50 - 1.10 mg/dL LAB CHEMISTRY METHOD 05/16/2025 1:[address] [facility] eGFR 45(L) >=60 mL/min/1. 73m2 LAB CHEMISTRY METHOD 05/16/2025 1:[address] [facility] Comment:Calculation based on the Chronic [...] Resu lt [facility] [address] [place] [address], [place] [phone] * (ABNORMAL) Complete blood count (05/16/2025 5:30 AM EDT) WBC 5.1 4.8 - 10.8 K/[facility] LAB HEMETOLOGY METHOD 05/16/2025 12:54 PM EDT [facility] RBC 3.50(L) 3.80 - 4.80 M/mcL LAB HEMETOLOGY METHOD 05/16/2025 12:54 PM EDT [facility] Hemoglobin 10.7(L) 11.5 - 16.0 g/dL LAB HEMETOLOGY METHOD 05/16/2025 12:[address] [facility] Hematocrit 34.5(L) 35.0 - 47.0 % LAB HEMETOLOGY METHOD 05/16/2025 12:[address] [facility] MCV 100.0(H) 79.0 - 98.0 FL LAB HEMETOLOGY METHOD 05/16/2025 12:[address] [facility] MCH 31.0 27.0 - 32.0 pcg LAB HEMETOLOGY METHOD 05/16/2025 12:[address] [facility] MCHC 31.0(L) 32.0 - 37.0 g/dL LAB HEMETOLOGY METHOD 05/16/2025 12:[address] [facility] RDW 12.7 11.0 - 15.0 % LAB HEMETOLOGY METHOD 05/16/2025 12:[address] [facility] Platelets 241 130 - 400 K/mcL LAB HEMETOLOGY METHOD 05/16/2025 12:[address] [facility] MPV 11.1(H) 7.0 - 11.0 FL LAB HEMETOLOGY METHOD 05/16/2025 12:[address] [facility] NRBC 0.0 <1.0 % LAB HEMETOLOGY METHOD 05/16/2025 12:[address] [facility] NRBC Absolute 0.00 <0.10 K/mcL LAB HEMETOLOGY METHOD 05/16/2025 12:[address] [facility] Blood Venous blood specimen / Unknown Venipuncture / Unknown 05/16/2025 5:30 AM EDT 05/16/2025 11:19 AM EDT us Yared iVlla MD LAB BLOOD ORDERABLES Final Resu lt [facility] [address] [place] [address], documented in this encounter Visit Diagnoses Diagnosis Type 2 diabetes mellitus with other diabetic kidney complication (CMS/HCC V24, CMS/HCC V28) Essential (primary) hypertension Unspecified essential hypertension Muscle weakness (generalized) Other hyperlipidemia documented in this encounter Care Teams Edm Operator Relationship Specialty Start Date End Date John Herrera NP [address] [place], [place] PCP - General 05/30/23 documented as of this encounter
--- OUTSIDE RECORDS SUMMARY | 2025-07-29 12:01 | XMS_ITS | Clinical Summary ---
Author Organization [facility] Address [address] [place] [address] Care Team Providers Care Relief Mate Name Role Phone John Herrera Primary Care Provider [phone] Allergies Active Allergy Reactions Criticality Noted Date [...] age to complete this topic Care Teams Relief Mate Relationship Specialty Start Date End Date John Herrera [address] [facility] [place] [address] PCP - General Family Medicine 05/30/23
--- OUTSIDE RECORDS SUMMARY | 2025-07-29 12:01 | XMS_ITS | Encounter Summary ---
Author Organization [facility] Address [address] [place] [address] Care Team Providers Care Purchasing Supervisor Name Role Phone John Herrera MD Primary Care Provider Encounter Details Date Type Department Care Team (Late st Contact Info) Description 02/03/2024 Scanned Document [facility] Department of Internal Medicine & Nephrology [place] [address] [place] [phone] Karson Law MD [address] [address] Social History Tobacco Use Types Packs/Day Years [...] on filedocumented in this encounter Care Teams Purchasing Supervisor Relationship Specialty Start Date End Date John Herrera MD [address] [facility] [place] [address] PCP - General Family Medicine 02/03/24 documented as of this encounter
--- OUTSIDE RECORDS SUMMARY | 2025-07-29 12:01 | XMS_ITS | Clinical Summary ---
Author Organization [facility] Address [address] [facility] [address] [place] [address] Phone Care Team Providers Care Stevedore Dock Name Role Phone John Herrera NP Primary Care Provider [phone] Allergies Active Allergy Reactions Criticality Noted Date [...] PM EST) Hemoglobin A1C 5.4 (4.0-5.6) % [facility] Comment: MONITORING: In known diabetic patients, hemoglobin A1c targets should be discussed with health care provider. DIAGNOSTIC USE: The [place] [employer] (ADA) and the World Health [...] Supplement 1 Testing performed or reported by [facility], a Service of [facility], [address] [place] [address] Niall Pinto MD, Pollution Control Engineer [facility]# [id number] Blood specimen (specimen) Venous blood / Unknown 10/14/2022 4:03 PM EST 10/14/2022 4:05 PM EST us Karson Law MD LAB BLOOD ORDERABLES Carol rasmussen Result [facility] from Last 3 Months or Most Recently Relevant to Health Maintenance Insurance [employer] [place] Medicare Care Teams Stevedore Dock Relationship Specialty Start Date End Date John Herrera NP [address] [place] [address] PCP - General Nurse Practitioner 09/05/21
--- NOTE | 2025-07-29 12:44 | MHC.AU.HA3 ---
Hearing Instrument Follow-Up- Binaural Date of Visit: 07/29/25 Right Ear: Make, Model, Color, Serial Number: Pedrito Colladoo [id number] ITCs SN: [id number] Color: Morea Lot Associate Repair Warranty: 01/01/2027 Lot Associate Loss and Damage Warranty: 01/01/2027 [facility] Service Plan: 12/16/2024 Battery Size: 312 Multi Share Program Coordinator/Slim Tube: Earmold/Dome/CShell/SlimTip: Type of Wax Guard: CeruStop Dispensed By: [facility] Date of Fittin Left Ear: Make, Model, Color, Serial Number: Pedrito Colladoo [id number] ITCs SN: [id number] Color: Morea Lot Associate Repair Warranty: 01/01/2027 Lot Associate Loss and Damage Warranty: 01/01/2027 [facility] Service Plan: 12/17/2023 Battery Size: 312 Multi Share Program Coordinator/Slim Tube: Earmold/Dome/CShell/SlimTip: Type of Wax Guard: CeruStop Dispensed By: [facility] Date of Fittin12/17/2023 Follow-Up Summary: Right aid drop off complaint of intermittent . Found some debris in wax guard. Cleaned aid, replaced wax guard, ran through dehumidifier. Aid sounds distorted, cutting in and out. Sending to [facility]. Advised Kayleen of plan. Recommendations: Recommendations: Patient will be contacted when materials have arrived. Diagnosis Code(s): Primary Diagnosis: H90.3 Bilateral Sensorineural Hearing LossSecondary Diagnosis: Signature: Provider: Jovanny Dickens, [facility]
== END 2025-07-29 10:13 | disposition home or self-care (01) ==
LOC: HO.HAP 10:12
PROVIDERS: Visit Provider Nurse Practitioner Family
DX: Z13.89 Encounter for screening for other disorder (principal)

== ENCOUNTER 2025-08-12 09:29 | Outpatient (REF) | payer SELFPAY ==
--- OUTSIDE RECORDS SUMMARY | 2024-03-26 06:20 | XMS_ITS ---
Author Organization [facility] Address [address] [place] [address] Care Team Providers Care Technical Maintenance Specialist Name Role Phone CHANDU CHISHOLM Primary Care Provider Taiwo Azar Unavailable [phone] REASON FOR VISIT diarrhea,wt loss,nausea Problems Problem Type SNOMED Code ICD Code Onset Dates Problem Status W/U Status Risk Notes Problem Diverticular disease of colon (858273636) Diverticulosis of large intestine without perforation or abscess without bleeding (K57.30) Active confirmed Encounters Encounter Location Date Provider Diagnosis [facility] [place] [address] [place], [place] [phone] 03/26/2024 Taiwo Mcintosh Diarrhea R19.7 ; W [...] NANCY VORA CDOB: 7 (80 yo F)Acc No.[id number]:03/26/2024 EGD and COL/MAC Patient: NANCY COHEN Provider: Domo Mcintosh MD :1945 A ge:78 Y S ex:Female Date:03/26/2024 Address:[address] [address] , [id number] Pcp:CHANDU CHISHOLM Subjective: * Chief Complaints: * [...] * Procedure Codes: 4 5380 COLONOSCOPY AND [id number] INTRVL 3+YRS PTS CLNSCP [id number] RCMND FLW-UP 10 YRS DOCD, Modifiers: 8P 91611 UPPER GI ENDOSCOPY, BIOPSY Billing Information: * Procedure Codes: 42659 COLONOSCOPY AND BIOPSY. 0529F INTRVL 3+YRS PTS CLNSCP DOCD. 0528F RCMND FLW-UP 10 YRS DOCD. Modifiers: 8P 91566 UPPER GI ENDOSCOPY, BIOPSY. * The named appointment provid er may or may not be the originator of this progress note, and it is not deemed complete until electronically signed by the appointment provider. Sign off status: Pending * Provider: oDmo Mcintosh MD Date: 0 03/26/2024 Generated for Leidy elaine/Manolo/eTransmitting on: 10/12/2024 09:59 AM EST
--- OUTSIDE RECORDS SUMMARY | 2025-08-09 11:00 | XMS_ITS | Encounter Summary ---
Author Organization [facility] Address [address] [place] [address] Care Team Providers Care Stem Processing Machine Operator Name Role Phone John Herrera NP Primary Care Provider [phone] Reason for Visit * Reason Comments Follow-up Encounter Details Date Type Department Care Team (Late st Contact Info) Description 08/09/2025 11:00 AM EST Office Visit [facility] Hematology Oncology [address] [place] [phone] Ceasar Colon MD [address] [place] [address] Infiltrating ductal carcinoma of left breast (CMS/HCC V24, CMS/HCC V28) (Primary Dx) Social History Tobacco Use Types Packs/Day Years Used Date Smoking Tobacco: Never Assessed Comments Unknown Sex and Gender Information Value Date Recorded Sex Assigned at Not on file Legal Sex Female 11:09 AM EST Gender Identity Not on file Sexual Orientation Not on file documented as of this encounter Last Filed Vital Signs Vital Sign Reading Time Taken Comments Blood Pressure 166/55 08/09/2025 11:13 AM EST Pulse 51 08/09/2025 11:13 AM EST Temperature 36.7 C (98.1 F) 08/09/2025 11:13 AM EST Respiratory Rate - - Oxygen Saturation 100% 08/09/2025 11:13 AM EST Inhaled Oxygen Concentration - - Weight 75.3 kg (166 lb) 08/09/2025 11:13 AM EST Height - - Body Mass Index 32.42 11/26/2023 11:52 AM EST documented in this encounter Progress Notes * Ceasar Colon MD - 08/09/2025 11:00 AM EST CHIEF COMPLAINT: Follow-up IDENTIFIER:Kayleen Wilson is a 80 y.o. female. HPI: 80-year-old female, who had subcentimeter hormone positive invasive carcinoma of left breast resected about 5 years ago, patient tried anastrozole but could not tolerated, patient has been on surveillance, earlier this year mammogram reported normal ROS: Patient has been feeling fair except other medical issues including neuropathy, arthritis etc. Patient denies any anorexia or weight loss Oncology History Overview Note Patient found to have an abnormal mammogram in early 2020, underwent further workup including imaging guided core biopsy consistent with invasive carcinoma of breast, ER/HI positive HER2/bessy negative Patient underwent lumpectomy without sentinel lymph node dissection in early 2020, patient final pathology showed T1bNx disease After lumpectomy patient underwent adjuvant radiation in the spring [address] Dr. Bahena recommended patient to start on adjuvant endocrine therapy/anastrozole, which she took only 1 dose and had significant side effects so she was switched to exemestane after few weeks and she took on and off for 2+ years but was having difficult time in tolerating Patient switch to our cancer center, I saw her on 06/11/2023, patient already discontinued exemestane so I kept her without any endocrine therapy but discussed with her in detail about potential risk benefit and importance of surveillance including mammogram and breast exam etc. PAST MEDICAL HISTORY: Problem List[1] Medical History[2] SOCIAL HISTORY: Social History Tobacco Use Smoking status: Not on file Smokeless tobacco: Not on file Substance Use Topics Alcohol use: Not on file FAMILY HISTORY: Family History[3] No family status information on file. Current Medications[4] Current Allergies[5] PHYSICAL EXAM: Visit Vitals BP (!) 166/55 (BP Location: Right arm, Patient Position: Standing, BP Cuff Size: Adult) Pulse 51 Temp 36.7 ??C (98.1 ??F) (Temporal) Wt 75.3 kg (166 lb) SpO2 100% BMI 32.42 kg/m?? Smoking Status Never Assessed BSA 1.72 m?? ECOG 1-2 APPEARANCE: Alert and in no acute distress EYES: nonicteric sclera pink conjunctiva ORAL CAVITY: No erythema or exudates NECK: Neck supple, no significant adenopathy, HEART: normal S1 and S2 with systolic murmur LUNG: clear to auscultation bilaterally LYMPH NODES: No palpable superficial adenopathy ABDOMEN: soft, nontender and no organomegaly appreciated EXTREMITIES: No significant edema, erythema or tenderness IMPRESSION: 1. Infiltrating ductal carcinoma of left breast (CMS/HCC V24, CMS/HCC V28) 80-year-old female, who had subcentimeter hormone positive invasive carcinoma of left breast resected about 5 years ago, patient had lumpectomy followed by adjuvant radiation and tried aromatase inhibitor for few months but could not tolerated because of side effect, patient has no sign and symptomsuggestive of recurrence of disease, explained patient about her hormone positive disease, risk of recurrence etc. PLAN: Return to office as needed Ceasar Colon MD [1] There is no problem list on file for this patient. [2] No past medical history on file. [3] No family history on file. [4] Current Outpatient Medications: atorvastatin (LIPITOR) 10 mg tablet, Take 1 tablet (10 mg total) by mouth 1 (one) time each day., Disp: , Rfl: buPROPion (WELLBUTRIN) 100 mg tablet, Take 1 tablet (100 mg total) by mouth 2 (two) times a day., Disp: , Rfl: carvediloL (COREG) 25 mg tablet, , Disp: , Rfl: gabapentin (NEURONTIN) 100 mg capsule, , Disp: , Rfl: insulin glargine (LANTUS) 100 unit/mL injection, Inject 10 Units under the skin every night at bedtime., Disp: , Rfl: levothyroxine (SYNTHROID, LEVOTHROID) 50 mcg tablet, Take 1 tablet (50 mcg total) by mouth daily., Disp: , Rfl: methocarbamoL (ROBAXIN) 500 mg tablet, Take 1 tablet (500 mg total) by mouth 3 (three) times a day if needed for muscle spasms., Disp: , Rfl: SITagliptin phosphate (Januvia) 100 mg tablet, Take 1 tablet (100 mg total) by mouth daily., Disp: , Rfl: [5] Allergies Allergen Reactions Ciprofibrate Orphenadrine Penicillins Sulfa (Sulfonamide Antibiotics) documented in this encounter Plan of Treatment Not on file documented as of this encounter Visit Diagnoses Diagnosis Infiltrating ductal carcinoma of left breast ([facility] V24, [facility] V28)- Primary documented in this encounter Historical Medications * This list may reflect changes made after this encounter. methocarbamoL (ROBAXIN) 500 mg tablet Take 1 tablet (500 mg total) by mouth 3 (three) times a day if needed for muscle spasms. 07/16/2025 added in this encounter Care Teams Stem Processing Machine Operator Relationship Specialty Start Date End Date John Herrera NP [address] [facility] [place], [place] PCP - General 05/30/23 documented as of this encounter
--- OUTSIDE RECORDS SUMMARY | 2025-08-12 09:59 | XMS_ITS | Encounter Summary ---
Author Organization [facility] Address [address] [place] [address] Phone Care Team Providers Care Teacher Preschool Name Role Phone John Herrera NP Primary Care Provider [phone] Reason for Visit * Reason Comments Med Refill Encounter Details Date Type Department Care Team (Late st Contact Info) Description 11/15/2023 Refill [facility] [address] [place] [phone] Karson Law MD Social History Tobacco Use [...] on filedocumented in this encounter Care Teams Teacher Preschool Relationship Specialty Start Date End Date John Herrera NP [address] [facility] [place] [address] PCP - General Nurse Practitioner 09/05/21 documented as of this encounter
--- OUTSIDE RECORDS SUMMARY | 2025-08-12 09:59 | XMS_ITS | Clinical Summary ---
Author Organization [facility] Address [address] [place] [address] Care Team Providers Care Button Cutting Machine Operator Name Role Phone John Herrera Primary Care Provider [phone] Allergies Active Allergy Reactions Criticality Noted Date [...] age to complete this topic Care Teams Button Cutting Machine Operator Relationship Specialty Start Date End Date John Herrera [address] [facility] [place] [address] PCP - General Family Medicine 05/30/23
--- OUTSIDE RECORDS SUMMARY | 2025-08-12 10:00 | XMS_ITS | Clinical Summary ---
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 02/09/2024 Nephrolithiasis [...] 08/11/2024 6:10 AM EST Performed at: - Lab[address] [id number] Marine Insulator: Suzi Stern MD, Phone: [phone] Karson Law MD LAB BLOOD ORDERABLES [...] AM EST Performed at: 01 - [facility] [address] [id number] Marine Insulator: Suzi Stern MD, Phone: [phone] Karson Law MD LAB BLOOD ORDERABLES Carol l Result [facility] 1 from Last 3 Months or Most Recently Relevant to Health Maintenance Insurance MEDICARE PART A & B [facility] SUPPLEMENT ONLY Care Teams Data Review Specialist Relationship Specialty Start Date End Date John Herrera MD [address] [place] [address] PCP - General Family Medicine 02/03/24
--- OUTSIDE RECORDS SUMMARY | 2025-08-12 10:00 | XMS_ITS | Encounter Summary ---
Author Organization [facility] Address [address] [place] [address] Care Team Providers Care National Accounts Sales Name Role Phone John Herrera NP Primary Care Provider [phone] Encounter Details Date Type Department Care Team (Latest Contact Info) Description 05/16/2025 Lab Requisition [facility] - Main Lab [address] [facility] [place] [phone] Yared Villa MD [address] [place] [address] Type 2 diabetes mellitus with [...] on file documented as of this encounter Procedures Procedure Name Priority Date/Time Associated Diagnosis Comments COMPLETE BLOOD COUNT Routine 05/16/2025 5:30 AM EDT Type 2 diabetes mellitus with other diabetic kidney complication (CMS/HCC V24, CMS/HCC V28) Essential (primary) hypertension Muscle weakness (generalized) Other hyperlipidemia COMPREHENSIVE METABOLIC PANEL Routine 05/16/2025 5:30 AM EDT Type 2 diabetes mellitus with other diabetic kidney complication ([facility] V24, [facility] V28) Essential (primary) hypertension Muscle weakness (generalized) Other hyperlipidemia documented in this encounter Results * (ABNORMAL) Comprehensive metabolic panel (05/16/2025 5:30 AM EDT) Sodium 141 133 - 145 mmol/L LAB CHEMISTRY METHOD 05/16/2025 1:30 PM [facility] Potassium 3.9 3.5 - 5.5 mmol/L LAB CHEMISTRY METHOD 05/16/2025 1:30 PM [facility] Chloride 108 96 - 110 mmol/L LAB CHEMISTRY METHOD 05/16/2025 1:30 PM [facility] CO2 25 21 - 32 mmol/L LAB CHEMISTRY METHOD 05/16/2025 1:30 PM [facility] Anion Gap 8 3 - 11 LAB CHEMISTRY METHOD 05/16/2025 1:30 PM [facility] Glucose 99 70 - 100 mg/dL LAB CHEMISTRY METHOD 05/16/2025 1:30 PM [facility] BUN 11 5 - 25 mg/dL LAB CHEMISTRY METHOD 05/16/2025 1:30 PM [facility] Creatinine 1.24(H) 0.50 - 1.10 mg/dL LAB CHEMISTRY METHOD 05/16/2025 1:30 PM [facility] eGFR 45(L) >=60 mL/min/1. 73m2 LAB CHEMISTRY METHOD 05/16/2025 1:30 PM [facility] Comment:Calculation based on the Chronic Kidney Disease Epidemiology Collaboration (CKD-EPI) equation refit without adjustment for race. BUN/Creatinine Ratio 8.9 LAB CHEMISTRY METHOD 05/16/2025 1:30 PM [facility] Calcium 8.8 8.5 - 10.5 mg/dL LAB CHEMISTRY METHOD 05/16/2025 1:30 PM [facility] AST (SGOT) 21 10 - 42 unit/L LAB CHEMISTRY METHOD 05/16/2025 1:30 PM EDT [facility] ALT (SGPT) 14 10 - 60 unit/L LAB CHEMISTRY METHOD 05/16/2025 1:30 PM EDT [facility] Alkaline Phosphatase 94 42 - 121 unit/L LAB CHEMISTRY METHOD 05/16/2025 1:30 PM EDT [facility] Total Protein 5.7(L) [...] [facility] [address] [place] [address], * (ABNORMAL) Complete blood count (05/16/2025 5:30 AM EDT) WBC 5.1 4.8 - 10.8 K/mcL LAB HEMETOLOGY METHOD 05/16/2025 12:54 PM EDT [facility] RBC 3.50(L) 3.80 - 4.80 M/mcL LAB HEMETOLOGY METHOD 05/16/2025 12:54 PM EDT [facility] Hemoglobin 10.7(L) 11.5 - 16.0 g/dL LAB HEMETOLOGY METHOD 05/16/2025 12:54 PM EDT [facility] Hematocrit 34.5(L) 35.0 - 47.0 % LAB HEMETOLOGY METHOD 05/16/2025 12:54 PM EDT [facility] MCV 100.0(H) 79.0 [...] [facility] [address] [place] [address], documented in this encounter Visit Diagnoses Diagnosis Type 2 diabetes mellitus with other diabetic kidney complication (CMS/HCC V24, CMS/[facility] V28) Essential (primary) hypertension Unspecified essential hypertension Muscle weakness (generalized) Other hyperlipidemia documented in this encounter Care Teams National Accounts Sales Relationship Specialty Start Date End Date John Herrera NP [address] [facility] [place] PCP - General 05/30/23 documented as of this encounter
--- OUTSIDE RECORDS SUMMARY | 2025-08-12 10:00 | XMS_ITS | Encounter Summary ---
Author Organization [facility] Address [address] [place] [address] Care Team Providers Care Corrections Caseworker Name Role Phone John Herrera MD Primary Care Provider Encounter Details Date Type Department Care Team (Late st Contact Info) Description 02/03/2024 Scanned Document [facility] Department of Internal Medicine & Nephrology [place] [address] [place] [phone] Karson Law MD [address] [address] Social History Tobacco Use Types Packs/Day Years [...] on filedocumented in this encounter Care Teams Corrections Caseworker Relationship Specialty Start Date End Date John Herrera MD [address] [facility] [place] [address] PCP - General Family Medicine 02/03/24 documented as of this encounter
--- OUTSIDE RECORDS SUMMARY | 2025-08-12 10:00 | XMS_ITS | Patient Health Record ---
Author Organization [facility] Address [address] [place] [address] Care Team Providers Care Corporate Travel Coordinator Name Role Phone CHANDU CHISHOLM Primary Care Provider Taiwo Azar [phone] Allergies Allergen (clinical drug ingredient) Drug/Non Drug Allergy documented on EMR Reaction Allergy Type Onset Date Status k flex (uncoded) Unknown Allergy Act jean carlos ciprofloxacin Cipro Unknown Drug Allergy Act jean carlos penicillin G Penicillin G Sodium Unknown Drug Allergy Active gabapentin Gabapentin Unknown Drug Allergy Activ e meloxicam Meloxicam Unknown Drug Allergy Active Substance with sulfonamide structure and antibacterial mechanism of action (substance) Sulfa Antibiotics Unknown Drug Allergy Active Reason For Referral No Information Medications Medication SIG (Take, Route, Frequency, Duration) Notes Start Date End Date Status Omeprazole 20 MG Capsule Delayed Release TAKE 1 CAPSULE BY MOUTH EVERY MORNING; Duration: 30 Active Imodium A-D 2 MG Tablet 1 or 2 tablets O rally Every 4 to 6 hours as needed for diarrhea 02/25/2024 Active Levothyroxine Sodium 75 MCG Tablet 1 tablet on an empty stomach in the morning Orally Once a day; Duration: 30 day(s) Active Ondansetron 4 MG Tablet Disintegrating 1 tablet on the tongue and allow to dissolve Orally Every 4 to 6 hours as needed for nausea; Duration: 30 day(s) 02/25/2024 Active buPROPion HCl 100 MG Tablet 1 tablet Orally Twice a day; Duration: 30 day(s) Active potassium 1 tab Oral; Duration : 14 days Active Magnesium 300 MG Capsule 1 capsule with a meal Orally Once a day; Duration: 30 day(s) Not-Taking/P RN Calcium 1 tab Oral; Duration : 14 days Active Gabapentin 100 MG Capsule Oral; Duration: 30 Active Januvia 100 MG Tablet 1 tablet Orally On ce a day; Duration: 30 day(s) Active Lantus 100 UNIT/ML Solution 20-25 units Subcutaneous once a day Active Atorvastatin Calcium 10 MG Tablet 1 tablet Orally Once a day; Duration: 30 day(s) Active Carvedilol 25 MG Tablet 1 tablet with fo od Orally Twice a day; Duration: 30 day(s) Active Immunizations Vaccine Route Administration Date Status Comme nts Influenza Unknown 05/20/2019 Administered Influenza Unknown 07/15/2023 Administered Social History Tobacco Use: Social History Observation Description Date Details (start date - stop date) Former Smoker NA - NA Social History Drugs/Alcohol: Social Info Question Answer Notes Alcohol Screen Did you have a drink containing alcohol in the past year? Yes How often did you have a drink containing alcohol in the past year? 2 to 4 times a month (2 points) How many drinks did you have on a typical day when you were drinking in the past year? 1 or 2 drinks (0 point) How often did you have 6 or more drinks on one occasion in the past year? 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[employer] Section Notes: Nonsmoker; no sig alcohol Nonsmoker; no sig alcohol Nonsmoker; no sig alcohol Problems Problem Type SNOMED Code ICD Code Onset Dates Problem Status W/U Status Risk Notes Problem Screening for malignant neoplasm of colon (133329428) Encounter for screening for malignant neoplasm of colon (Z12.11) Active confirmed Problem Diarrhea (56322517) Diarrhea (R19.7) Active con firmed Problem Weight loss (069310927) Weight loss (R63.4) Active confirmed Problem Diverticular disease of colon (331462484) Diverticulosis of large intestine without perforation or abscess without bleeding (K57.30) Active confirmed Problem Nausea (368047297) Nausea (R11.0) Active confir med Problem Preprocedural examination (647506288399165) Preprocedural examination (Z01.818) Active confirmed Problem Ischemic colitis (11496329) Ischemic colitis (K55.9) Active confirmed Problem Essential hypertension (03132380) Hypertension, unspecified type (I10) Active confirmed Problem jail current use of non-steroidal anti-inflammatory drug (333821494905585) Encntr long-term NSAID use (Z79.1) Active confirmed Problem Gastroesophageal reflux disease (disorder) (122673445) Chronic GERD (K21.9) Active confirmed Plan Of Treatment Pending Test Test Name [...] Start Date Coverage End Date MEDICARE OF [place] [address] [place] [address] [id number] NANCY VORA Self - patient is the insured [facility] [address] [address] [place] [address] [id number] NANCY VORA Self - patient is the insured Medical (General) History Medical History History ICD Code Denies [place],CVA,Lung disease,renal disease IDDM Hypertension Kidney stones Negative [...]
--- OUTSIDE RECORDS SUMMARY | 2025-08-12 10:00 | XMS_ITS | Encounter Summary ---
Author Organization [facility] Address [address] [place] [address] Care Team Providers Care Fence Erector Supervisor Name Role Phone John Herrera NP Primary Care Provider [phone] Encounter Details Date Type Department Care Team (Late st Contact Info) Description 05/15/2025 Lab Requisition [facility] - Main Lab [address] [facility] [place] [phone] Yared Villa MD [address] [place] [address] Essential (primary) hypertension; Other hyperlipidemia; [...] (CMS/HCC V24, CMS/HCC V28) Muscle weakness (generalized) COMPREHENSIVE METABOLIC PANEL Routine 05/15/2025 5:12 AM EDT Essential (primary) hypertension Other hyperlipidemia Type 2 diabetes mellitus with other diabetic kidney complication ([facility] V24, [facility] V28) Muscle weakness (generalized) documented in this encounter Results * (ABNORMAL) Comprehensive metabolic panel (05/15/2025 5:12 AM EDT) Sodium 140 133 - 145 mmol/L LAB CHEMISTRY METHOD 05/15/2025 10:22 AM [facility] Potassium 4.2 3.5 - 5.5 mmol/L LAB CHEMISTRY METHOD 05/15/2025 10:22 AM [facility] Chloride 107 96 - 110 mmol/L LAB CHEMISTRY METHOD 05/15/2025 10:22 AM [facility] CO2 28 21 - 32 mmol/L LAB CHEMISTRY METHOD 05/15/2025 10:22 AM [facility] Anion Gap 5 3 - 11 LAB CHEMISTRY METHOD 05/15/2025 10:22 AM [facility] Glucose 96 70 - 100 mg/dL LAB CHEMISTRY METHOD 05/15/2025 10:22 AM [facility] BUN 9 5 - 25 mg/dL LAB CHEMISTRY METHOD 05/15/2025 10:22 AM [facility] Creatinine 1.34(H) 0.50 - 1.10 mg/dL LAB CHEMISTRY METHOD 05/15/2025 10:22 AM [facility] eGFR 41(L) >=60 mL/min/1. 73m2 LAB CHEMISTRY METHOD 05/15/2025 10:22 AM [facility] Comment:Calculation based on the Chronic Kidney Disease Epidemiology Collaboration (CKD-EPI) equation refit without adjustment for race. BUN/Creatinine Ratio 6.7 LAB CHEMISTRY METHOD 05/15/2025 10:22 AM [facility] Calcium 8.8 8.5 - 10.5 mg/dL LAB CHEMISTRY METHOD 05/15/2025 10:22 AM [facility] AST (SGOT) 15 10 - 42 unit/L LAB CHEMISTRY METHOD 05/15/2025 10:22 AM EDT [facility] ALT (SGPT) 13 10 - 60 unit/L LAB CHEMISTRY METHOD 05/15/2025 10:22 AM EDT [facility] Alkaline Phosphatase 77 42 - 121 unit/L LAB CHEMISTRY METHOD 05/15/2025 10:22 AM EDT [facility] Total Protein 5.2(L) 6.0 - 8.0 g/dL LAB CHEMISTRY METHOD 05/15/2025 10:22 AM EDT [facility] Albumin 2.7(L) 3.2 - 5.0 g/dL LAB CHEMISTRY METHOD 05/15/2025 10:22 [facility] Total Bilirubin 0.3 0.0 - 1.4 mg/dL LAB CHEMISTRY METHOD 05/15/2025 10:22 AM T [facility] Blood Venous blood specimen / Unknown Venipuncture / Unknown 05/15/2025 5:12 AM EDT 05/15/2025 8:47 AM EDT Yared Villa MD LAB BLOOD ORDERABLES Final Resu lt [facility] [address] [place] [address], * (ABNORMAL) Complete blood count (05/15/2025 5:12 AM EDT) WBC 5.3 4.8 - 10.8 K/mcL LAB HEMETOLOGY METHOD 05/15/2025 9:47 AM EDT [facility] RBC 3.30(L) 3.80 - 4.80 M/mcL LAB HEMETOLOGY METHOD 05/15/2025 9:47 AM EDT [facility] Hemoglobin 10.1(L) 11.5 - 16.0 g/dL LAB HEMETOLOGY METHOD 05/15/2025 9:47 AM EDT [facility] Hematocrit 31.8(L) 35.0 - 47.0 % LAB HEMETOLOGY METHOD 05/15/2025 9:47 AM EDT [facility] MCV 97.5 79.0 - 98.0 FL LAB HEMETOLOGY METHOD 05/15/2025 9:47 AM EDT [facility] MCH 31.0 27.0 - 32.0 pcg LAB HEMETOLOGY METHOD 05/15/2025 9:47 AM EDT [facility] MCHC 31.8(L) 32.0 - 37.0 g/dL LAB HEMETOLOGY METHOD 05/15/2025 9:47 AM [facility] RDW 12.7 11.0 - 15.0 % LAB HEMETOLOGY METHOD 05/15/2025 9:47 AM [facility] Platelets 257 130 - 400 K/mcL LAB HEMETOLOGY METHOD 05/15/2025 9:47 AM [facility] MPV 10.9 7.0 - 11.0 FL LAB HEMETOLOGY METHOD 05/15/2025 9:47 AM [facility] NRBC 0.0 <1.0 % LAB HEMETOLOGY METHOD 05/15/2025 9:47 AM [facility] NRBC Absolute 0.00 <0.10 K/mcL LAB HEMETOLOGY METHOD 05/15/2025 9:47 AM [facility] Blood Venous blood specimen / Unknown Venipuncture / Unknown 05/15/2025 5:12 AM EDT 05/15/2025 8:47 AM EDT us Yared Villa MD LAB BLOOD ORDERABLES Final Resu lt [facility] [address] [place] [address], documented in this encounter Visit Diagnoses Diagnosis Essential (primary) hypertension Unspecified essential hypertension Other hyperlipidemia Type 2 diabetes mellitus with other diabetic kidney complication (CMS/HCC V24, CMS/HCC V28) Muscle weakness (generalized) documented in this encounter Care Teams Fence Erector Supervisor Relationship Specialty Start Date End Date John Herrera NP [address] [facility] [place] PCP - General 05/30/23 documented as of this encounter
--- OUTSIDE RECORDS SUMMARY | 2025-08-12 10:00 | XMS_ITS | Clinical Summary ---
Author Organization [facility] Address [address] [place] [phone] Phone Care Team Providers Care Maintenance Aide Name Role Phone John Herrera NP Primary [...] gabapentin (NEURONTIN) 100 mg capsule 08/07/2024 Active methocarbamoL (ROBAXIN) 500 mg tablet Take 1 tablet (500 mg total) by mouth 3 (three) times a day if needed for muscle spasms. 07/16/2025 Active Encounters Date Type Department Care Team Description 08/09/2025 11:00 AM EST Office Visit [facility] Hematology Oncology [address] [place] [phone] Ceasar Colon MD Infiltrating ductal carcinoma of left breast ([facility] V24, [facility] V28) (Primary Dx) 05/18/2025 Lab Requisition [facility] Lab [address] [place] [phone] Yared Villa MD Essential (primary) hypertension; Type 2 diabetes mellitus with other diabetic kidney complication ([facility] V24, [facility] V28); Other hyperlipidemia; Muscle weakness (generalized) 05/16/2025 Lab Requisition [facility] Lab [address] [place] [phone] Yared Villa MD Type 2 diabetes mellitus with other diabetic kidney complication ([facility] V24, [facility] V28); Essential (primary) hypertension; Muscle weakness (generalized); Other hyperlipidemia 05/15/2025 Lab Requisition [facility] Lab [address] [place] [phone] Yared Villa MD Essential (primary) hypertension; Other hyperlipidemia; Type 2 diabetes mellitus with other diabetic kidney complication ([facility] V24, [facility] V28); Muscle weakness (generalized) from Last 3 [...] (166 lb) 08/09/2025 11:13 AM EST Height 152.4 cm (5') 11/26/2023 11:52 AM EST Body Mass Index 32.42 11/26/2023 11:52 AM EST Plan of Treatment Health Maintenance Due Date Last Done Comments Diabetes: Annual Foot Exam 1955 Diabetes: Annual Retina Eye Exam 1955 Zoster Vaccines (2 of 2) 11/13/2019 019, 07/16/2019, 03/17/2013 Cholesterol Screening (Lipid Panel) 10/26/2023 Falls Risk Assessment 10/26/2023 Hepatitis C Screening 10/26/2023 Medicare Annual Wellness Visit 10/26/2023 Osteoporosis Screening (Bone Density Screening) 10/26/2023 Social Influencers of Health Screening 10/26/2023 Diabetes: Annual Urine Albumin-Creatinine Ratio (uACR) 08/09/2024 Diabetes: Blood Sugar Control Test (HGBA1C) 08/09/2024 10/14/2022 Depression Screening 09/22/2024 COVID-19 Vaccine ( season) 2025 06/14/2024, 06/24/2023, 05/14/2022, Additional history exists Influenza Vaccine (#1) 2025 , 06/24/2023, 05/14/2022, Additional history exists Diabetes: Annual GFR (Glomerular Filtration Rate) 05/19/2026 05/19/2025, 05/16/2025, 05/15/2025 Hypertension/CHF/CAD Annual BMP Blood Test 05/19/2026 05/19/2025, 05/16/2025, 05/15/2025 DTaP,Tdap,and Td Vaccines (2 - Td or Tdap) 07/04/2035 07/04/2025 RSV Immunization Adult Patients Completed 06/14/2024 Pneumococcal Vaccine: 50+ Years Completed 05/17/2025, 06/04/2021, 04/30/2020, Additional history exists HIB Vaccines Aged Out No longer eligi [...] of3 resultswithin the time period is included. [facility] WBC 6.0 4.8 - 10.8 K/mcL [...] % LAB [facility] MCV 98.2(H) 79.0 - 98.0 FL LAB HEMETOLOGY METHOD 05/19/2025 10:30 AM [facility] MCH 31.3 27.0 - 32.0 pcg LAB HEMETOLOGY METHOD 05/19/2025 10:30 AM [facility] MCHC 31.8(L) 32.0 - 37.0 g/dL LAB HEMETOLOGY METHOD 05/19/2025 10:30 AM [facility] RDW 12.6 11.0 - 15.0 % LAB HEMETOLOGY METHOD 05/19/2025 10:30 AM [facility] Platelets 213 130 - 400 K/mcL LAB HEMETOLOGY METHOD 05/19/2025 10:30 AM [facility] MPV 11.5(H) 7.0 - 11.0 FL LAB HEMETOLOGY METHOD 05/19/2025 10:[address] [facility] NRBC 0.0 <1.0 % LAB HEMETOLOGY METHOD 05/19/2025 10:[address] [facility] NRBC Absolute 0.00 <0.10 K/mcL LAB HEMETOLOGY METHOD 05/19/2025 10:30 AM [facility] Blood Venous blood specimen / Unknown Venipuncture / Unknown 05/19/2025 5:10 AM EDT 05/19/2025 10:20 AM EDT us Yared Villa MD LAB BLOOD ORDERABLES Final Resu lt [facility] [address] [place] [address], [place] [phone] * (ABNORMAL) Basic metabolic panel (05/19/2025 5:10 [...] LAB CHEMISTRY METHOD 05/19/2025 10:[address] [facility] eGFR 46(L) >=60 mL/min/1. 73m2 LAB CHEMISTRY METHOD 05/19/2025 10:[address] [facility] Comment:Calculation based on the Chronic Kidney Disease Epidemiology Collaboration (CKD-EPI) equation refit without adjustment for race. BUN/Creatinine Ratio 12.4 LAB CHEMISTRY METHOD 05/19/2025 10:[address] [facility] Calcium 8.9 8.5 - 10.5 mg/dL LAB CHEMISTRY METHOD 05/19/2025 10:55 AM [facility] Blood Venous blood specimen / Unknown Venipuncture / Unknown 05/19/2025 5:10 AM EDT 05/19/2025 10:15 AM EDT us Yared Villa MD LAB BLOOD ORDERABLES Final Resu lt [facility] [address] [place] [address], * (ABNORMAL) Comprehensive metabolic panel (05/16/2025 5:30 AM EDT) Only the most recent of2 resultswithin the time period is included. Sodium 141 133 - 145 mmol/L LAB CHEMISTRY [facility]16[facility]25 [facility] Potassium 3.9 3.5 - 5.5 mmol/L LAB CHEMISTRY METHOD 05/16/2025 1:30 [facility] Chloride 108 96 - 110 mmol/L LAB CHEMISTRY METHOD 05/16/2025 1:30 PM [facility] CO2 25 21 - 32 mmol/L LAB CHEMISTRY METHOD 05/16/2025 1:[facility] Anion Gap 8 3 - 11 LAB CHEMISTRY METHOD 05/16/2025 1:30 PM [facility] Glucose 99 70 - 100 mg/dL LAB CHEMISTRY METHOD 05/16/2025 1:30 PM [facility] BUN 11 5 - 25 mg/dL LAB CHEMISTRY METHOD 05/16/2025 1:30 PM [facility] Creatinine 1.24(H) 0.50 - 1.10 mg/dL LAB CHEMISTRY METHOD 05/16/2025 1:30 PM [facility] eGFR 45(L) >=60 mL/min/1. 73m2 LAB CHEMISTRY METHOD 05/16/2025 1:30 PM [facility] Comment:Calculation based on the Chronic Kidney Disease Epidemiology Collaboration (CKD-EPI) equation refit without adjustment for race. BUN/Creatinine Ratio 8.9 LAB CHEMISTRY METHOD 05/16/2025 1:30 PM [facility] Calcium 8.8 8.5 - 10.5 mg/dL LAB CHEMISTRY METHOD 05/16/2025 1:30 PM [facility] AST (SGOT) 21 10 - 42 unit/L LAB CHEMISTRY METHOD 05/16/2025 1:30 PM [facility] ALT (SGPT) 14 10 - 60 unit/L LAB CHEMISTRY METHOD 05/16/2025 1:30 PM [facility] Alkaline Phosphatase 94 42 - 121 unit/L LAB CHEMISTRY METHOD 05/16/2025 1:30 PM [facility] Total Protein 5.7(L) 6.0 - 8.0 g/dL LAB CHEMISTRY METHOD 05/16/2025 1:30 PM [facility] Albumin 2.8(L) 3.2 - 5.0 g/dL LAB CHEMISTRY METHOD 05/16/2025 1:30 PM [facility] Total Bilirubin 0.4 0.0 - 1.4 mg/dL LAB CHEMISTRY METHOD 05/16/2025 1:30 PM [facility] Blood Venous blood specimen / Unknown 05/16/2025 5:30 AM EDT 05/16/2025 11:19 AM EDT Yared Villa MD LAB BLOOD ORDERABLES Final Resu lt [facility] [address] [place] [address], from Last 3 Months Insurance MEDICARE [employer] Care Teams Maintenance Aide Relationship Specialty Start Date End Date John Herrera NP [address] [place], [place] PCP - General 05/30/23
--- OUTSIDE RECORDS SUMMARY | 2025-08-12 10:00 | XMS_ITS | Clinical Summary ---
Author Organization [facility] Address 100 [facility] [address] [place] [address] Phone Care Team Providers Care Registered Nurse Fetal Name Role Phone John Herrera NP Primary Care Provider [phone] Allergies Active Allergy Reactions Criticality Noted Date [...] PM EST) Hemoglobin A1C 5.4 (4.0-5.6) % [facility] Comment: MONITORING: In known diabetic patients, hemoglobin A1c targets should be discussed with health care provider. DIAGNOSTIC USE: The [place] Diabetes Association (ADA) and the World Health [...] Supplement 1 Testing performed or reported by [facility], a Service of [facility], [address] [place] [address] Niall Pinto MD, Lumber Straightener [facility]# [id number] Blood specimen (specimen) Venous blood / Unknown 10/14/2022 4:03 PM EST 10/14/2022 4:05 PM EST us Karson Law MD LAB BLOOD ORDERABLES Carol rasmussen Result [facility] from Last 3 Months or Most Recently Relevant to Health Maintenance Insurance [employer] Medicare [facility] Medicare Care Teams Registered Nurse Fetal Relationship Specialty Start Date End Date John Herrera NP [address] [place] [address] PCP - General Nurse Practitioner 09/05/21
--- OUTSIDE RECORDS SUMMARY | 2025-08-12 10:00 | XMS_ITS | Encounter Summary ---
Author Organization [facility] Address [address] [place] [address] Care Team Providers Care Drum Worker Name Role Phone John Herrera NP Primary Care Provider [phone] Encounter Details Date Type Department Care Team (Late st Contact Info) Description 05/18/2025 Lab Requisition [facility] - Main Lab 299 [facility] [place] [phone] Yared Villa MD [address] [place] [address] Essential (primary) hypertension; Type 2 [...] CMS/HCC V28) Other hyperlipidemia Muscle weakness (generalized) BASIC METABOLIC PANEL Routine 05/19/2025 5:10 AM EDT Essential (primary) hypertension Type 2 diabetes mellitus with other diabetic kidney complication ([facility] V24, [facility] V28) Other hyperlipidemia Muscle weakness (generalized) documented in this encounter Results * (ABNORMAL) Basic metabolic panel (05/19/2025 5:10 AM EDT) Sodium 139 133 - 145 mmol/L LAB CHEMISTRY METHOD 05/19/2025 10:55 AM [facility] Potassium 5.1 3.5 - 5.5 mmol/L LAB CHEMISTRY METHOD 05/19/2025 10:55 AM [facility] Comment:Hemolysis present Chloride 108 96 - 110 mmol/L LAB CHEMISTRY METHOD 05/19/2025 10:55 AM [facility] CO2 25 21 - 32 mmol/L LAB CHEMISTRY METHOD 05/19/2025 10:55 AM [facility] Anion Gap 6 3 - 11 LAB CHEMISTRY METHOD 05/19/2025 10:55 AM [facility] Glucose 88 70 - 100 mg/dL LAB CHEMISTRY METHOD 05/19/2025 10:55 AM [facility] BUN 15 5 - 25 mg/dL LAB CHEMISTRY METHOD 05/19/2025 10:55 AM [facility] Creatinine 1.21(H) 0.50 - 1.10 mg/dL LAB CHEMISTRY METHOD 05/19/2025 10:55 AM [facility] eGFR 46(L) >=60 mL/min/1. 73m2 LAB CHEMISTRY METHOD 05/19/2025 10:55 AM [facility] Comment:Calculation based on the Chronic Kidney Disease Epidemiology Collaboration (CKD-EPI) equation refit without adjustment for race. BUN/Creatinine Ratio 12.4 LAB CHEMISTRY METHOD 05/19/2025 10:55 AM [facility] Calcium 8.9 8.5 - 10.5 mg/dL LAB CHEMISTRY METHOD 05/19/2025 10:55 AM [facility] Blood Venous blood specimen / Unknown Venipuncture / Unknown 05/19/2025 5:10 AM EDT 05/19/2025 10:15 AM EDT Yared Villa MD LAB BLOOD ORDERABLES Final Resu lt [facility] [address] [place] [address], * (ABNORMAL) Complete blood count (05/19/2025 5:10 AM EDT) [facility] Signature WBC 6.0 4.8 - 10.8 K/mcL LAB HEMETOLOGY METHOD 05/19/2025 10:30 AM [facility] RBC 3.40(L) 3.80 - 4.80 M/mcL LAB HEMETOLOGY METHOD 05/19/2025 10:30 AM [facility] Hemoglobin 10.7(L) 11.5 - 16.0 g/dL LAB HEMETOLOGY METHOD 05/19/2025 10:30 AM [facility] Hematocrit 33.6(L) 35.0 - 47.0 % LAB HEMETOLOGY METHOD 05/19/2025 10:30 AM [facility] MCV 98.2(H) 79.0 - 98.0 FL LAB HEMETOLOGY METHOD 05/19/2025 10:30 AM [facility] MCH 31.3 27.0 - 32.0 pcg LAB HEMETOLOGY METHOD 05/19/2025 10:30 AM [facility] MCHC 31.8(L) 32.0 - 37.0 g/dL LAB HEMETOLOGY METHOD 05/19/2025 10:30 AM [facility] RDW 12.6 11.0 - 15.0 % LAB HEMETOLOGY METHOD 05/19/2025 10:30 AM EDT [facility] Platelets 213 130 - 400 K/mcL LAB HEMETOLOGY METHOD 05/19/2025 10:30 AM EDT [facility] MPV 11.5(H) 7.0 - 11.0 FL LAB HEMETOLOGY METHOD 05/19/2025 10:30 AM EDT [facility] NRBC 0.0 <1.0 % LAB HEMETOLOGY METHOD 05/19/2025 10:30 AM EDT [facility] NRBC Absolute 0.00 <0.10 K/mcL LAB HEMETOLOGY METHOD 05/19/2025 10:30 AM EDT [facility] Blood Venous blood specimen / Unknown Venipuncture / Unknown 05/19/2025 5:10 AM EDT 05/19/2025 10:20 AM EDT us Yared Villa MD LAB BLOOD ORDERABLES Final Resu lt [facility] [address] [place] [address], documented in this encounter Visit Diagnoses Diagnosis Essential (primary) hypertension Unspecified essential hypertension Type 2 diabetes mellitus with other diabetic kidney complication (CMS/HCC V24, CMS/HCC V28) Other hyperlipidemia Muscle weakness (generalized) documented in this encounter Care Teams Drum Worker Relationship Specialty Start Date End Date John Herrera NP [address] [place], [place] PCP - General 05/30/23 documented as of this encounter
== END 2025-08-12 09:30 | disposition home or self-care (01) ==
LOC: HO.HAP 09:29
PROVIDERS: Visit Provider Nurse Practitioner Family
DX: H90.3 Sensorineural hearing loss, bilateral (principal)
CPT/HCPCS: 92593

== ENCOUNTER 2025-08-26 15:08 | Outpatient (REF) | payer OTHER, MEDICARE, SELFPAY ==
[2025-08-26 16:11] LABS: MANUAL DIFF FLAG NO
[2025-08-26 16:18] LABS: Hematocrit 37.7 % (37.0-47.0); Hemoglobin 12.1 g/dl (12.0-16.0); Imm Gran Abs Auto 0.03 X10*3/uL (0.00-0.03); Imm Gran Pct Auto 0.5 % (0.0-0.4); Lymphocytes Absolute Auto 1.4 X10*3/uL (1.2-4.9); Mean Corpuscular HGB Conc 32.1 g/dl (31.0-35.0); Mean Corpuscular Hemoglobin 29.7 pg (27.0-33.0); Mean Corpuscular Volume 92.4 fL (80.0-98.0); NRBC Abs Auto 0.000 X10*3/uL (0.0-0.012); NRBC Pct Auto 0.0 /100WBC (0.0-0.2); Platelet Count 223 X10*3/uL (160-400); Red Blood Count 4.08 X10*6/uL (4.20-5.50); White Blood Count 5.6 X10*3/uL (4.8-10.8)
[2025-08-26 18:37] LABS: Alanine Aminotransferase 14 U/L (0-31); Albumin Level 4.0 g/dL (3.5-5.0); Alkaline Phosphatase 81 U/L (39-117); Anion Gap 11 (12-20); Aspartate Amino Transferase 23 U/L (5-31); Blood Urea Nitrogen 35 mg/dL (9-16); Calcium 9.4 mg/dL (8.4-10.2); Carbon Dioxide 22 mmol/L (22-29); Chloride 113 mmol/L (96-108); Cholesterol 171 mg/dL (<200); Estimated Glomerular Filt Rate 44; HDL Cholesterol 47 mg/dL (>40); Potassium 3.8 mmol/L (3.3-5.1); Sodium 142 mmol/L (135-145); Total Protein 6.5 g/dL (6.5-8.0); Triglycerides 121 mg/dL (<150)
--- OUTSIDE RECORDS SUMMARY | 2025-08-26 19:10 | XMS_ITS | Clinical Summary ---
Author Organization [facility] Address [address] [place] [address] Care Team Providers Care Garage Construction Equipment Mechanic Name Role Phone RyanneJohn stewart Patel CHIU Primary Care Provider Allergies Active Allergy Reactions [...] 08/11/2024 6:10 AM EST Performed at: - [address] [id number] Forepart Rounder: Suzi Stern MD, Phone: [phone] us Karson Law MD LAB BLOOD ORDERABLES [...] AM EST Performed at: 01 - [facility] [address] [id number] Forepart Rounder: Suzi Stern MD, Phone: [phone] Karson Law MD LAB BLOOD ORDERABLES Carol l Result [facility] 1 from Last 3 Months or Most Recently Relevant to Health Maintenance Insurance MEDICARE PART A & B [facility] SUPPLEMENT ONLY Care Teams Garage Construction Equipment Mechanic Relationship Specialty Start Date End Date John Herrera NP [address] [place] [address] PCP - General Family Medicine 02/03/24
--- OUTSIDE RECORDS SUMMARY | 2025-08-26 19:10 | XMS_ITS | Clinical Summary ---
Author Organization [facility] Prior to 02/19/25 Address [address] [place] [address] Care Team Providers Care Direct Support Professional Caregiver Name Role Phone John Herrera Primary Care Provider [phone] Allergies Active Allergy Reactions Criticality Noted Date [...] age to complete this topic Care Teams Direct Support Professional Caregiver Relationship Specialty Start Date End Date John Herrera [address] [facility] [place] [address] PCP - General Family Medicine 05/30/23
--- OUTSIDE RECORDS SUMMARY | 2025-08-26 19:10 | XMS_ITS | Encounter Summary ---
Author Organization [facility] Address [address] [place] [address] Care Team Providers Care Acoustical Tile Drill Press Operator Name Role Phone John Herrera NP Primary Care Provider Encounter Details Date Type Department Care Team (Late st Contact Info) Description 02/03/2024 Scanned Document [facility] Department of Internal Medicine & Nephrology [place] [address] [place] [phone] Karson Law MD [address] [address] Social History Tobacco Use Types Packs/Day Years [...] on filedocumented in this encounter Care Teams Acoustical Tile Drill Press Operator Relationship Specialty Start Date End Date John Herrera NP [address] [facility] [place] [address] PCP - General Family Medicine 02/03/24 documented as of this encounter
[2025-08-27 08:21] LABS: HBS Num1 0.14 mIU/mL (0-7.99); HBc Num1 0.07 S/CO (0.00-0.79); HBsAGNum1 0.33 S/CO (0.00-0.99); Hepatitis A Antibody IgM 0.42 Index (0-0.79); Hepatitis B Surface Antigen Negative (Negative); ~HepC Num1 0.11 S/CO (0.00-0.79); ~Hepatitis A Antibody IgM Nonreactive (Nonreactive); ~Hepatitis B Surface Antibody NONREACTIVE (Nonreactive); ~Hepatitis C Antibody Nonreactive (Nonreactive)
== END 2025-08-26 15:09 | disposition home or self-care (01) ==
LOC: HO.HMGCLDS 15:08
PROVIDERS: PCP Nurse Practitioner Family; Visit Provider Nurse Practitioner Family
DX: E11.9 Type 2 diabetes mellitus without complications (principal); E55.9 Vitamin D deficiency, unspecified; Z11.59 Encounter for screening for other viral diseases
CPT/HCPCS: 36415; 80053; 80061; 82306; 83036; 84443; 85025; 86704; 86706; 86709; 86803; 87340

== ENCOUNTER 2025-08-27 09:30 | Outpatient (REF) | payer OTHER, MEDICARE, SELFPAY ==
--- OUTSIDE RECORDS SUMMARY | 2025-08-27 11:33 | XMS_ITS | Encounter Summary ---
Author Organization [facility] Address [address] [place] [address] Care Team Providers Care Channel Marketing Specialist Name Role Phone John Herrera NP Primary Care Provider [phone] Encounter Details Date Type Department Care Team (Late st Contact Info) Description 05/18/2025 Lab Requisition [facility] - Main Lab 299 [facility] [place] [phone] Yared Villa MD [address] [place] [address] Essential (primary) hypertension; Type 2 [...] complication ([facility] V24, [facility] V28) Other hyperlipidemia Muscle weakness (generalized) documented [...] 12.4 LAB CHEMISTRY METHOD 05/19/2025 10:55 AM [facility] Calcium 8.9 8.5 - 10.5 mg/dL LAB CHEMISTRY METHOD 05/19/2025 10:55 AM [facility] Blood Venous blood specimen / Unknown Venipuncture / Unknown 05/19/2025 5:10 AM EDT 05/19/2025 10:15 AM EDT Yared Villa MD LAB BLOOD ORDERABLES Final Resu lt [facility] [address] [place] [address], * (ABNORMAL) Complete blood count (05/19/2025 5:10 AM EDT) [facility] Signature WBC 6.0 4.8 - 10.8 K/mcL [...] 05/19/2025 10:30 AM [facility] RDW 12.6 11.0 [...] Resu lt [facility] [address] [place] [address], documented in this encounter Visit Diagnoses Diagnosis Essential (primary) hypertension Unspecified essential hypertension Type 2 diabetes mellitus with other diabetic kidney complication (CMS/HCC V24, CMS/HCC V28) Other hyperlipidemia Muscle weakness (generalized) documented in this encounter Care Teams Channel Marketing Specialist Relationship Specialty Start Date End Date John Herrera NP [address] [place], [place] PCP - General 05/30/23 documented as of this encounter
--- OUTSIDE RECORDS SUMMARY | 2025-08-27 11:34 | XMS_ITS | Clinical Summary ---
Author Organization [facility] Address [address] [place] [address] Care Team Providers Care Steam Drier Tender Name Role Phone RyanneJohn stewart Patel CHIU [...] 08/11/2024 6:10 AM EST Performed at: - [address] [id number] Carpenter Streetcar: Suzi Stern MD, Phone: [phone] us Karson Law MD LAB BLOOD ORDERABLES [...] AM EST Performed at: 01 - [facility] [address] [id number] Carpenter Streetcar: Suzi Stern MD, Phone: [phone] Karson Law MD LAB BLOOD ORDERABLES Carol l Result [facility] 1 from Last 3 Months or Most Recently Relevant to Health Maintenance Insurance MEDICARE PART A & B [facility] SUPPLEMENT ONLY Care Teams Steam Drier Tender Relationship Specialty Start Date End Date John Herrera NP [address] [place] [address] PCP - General Family Medicine 02/03/24
--- OUTSIDE RECORDS SUMMARY | 2025-08-27 11:34 | XMS_ITS | Encounter Summary ---
Author Organization [facility] Address [address] [place] [address] Care Team Providers Care Division Road Supervisor Name Role Phone John Herrera NP Primary Care Provider [phone] Encounter Details Date Type Department Care Team (Latest Contact Info) Description 05/16/2025 Lab Requisition [facility] [place] [facility] - Main Lab 299 [facility] [place] [phone] Yared Villa MD [address] [place] [address] Type 2 diabetes mellitus with [...] diabetes mellitus with other diabetic kidney complication ([facility] V24, [facility] V28) Essential (primary) hypertension Muscle weakness (generalized) Other hyperlipidemia documented in this encounter Results * (ABNORMAL) Comprehensive metabolic panel (05/16/2025 5:30 AM EDT) Sodium 141 133 - 145 mmol/L LAB CHEMISTRY METHOD 05/16/2025 1:30 PM [facility] Potassium 3.9 3.5 - 5.5 mmol/L LAB CHEMISTRY METHOD 05/16/2025 1:30 PM [facility] Chloride 108 96 - 110 mmol/L LAB CHEMISTRY METHOD 05/16/2025 1:30 PM [facility] CO2 25 21 - 32 mmol/L LAB CHEMISTRY METHOD 05/16/2025 1:30 PM [facility] Anion Gap 8 3 - 11 LAB CHEMISTRY METHOD 05/16/2025 1:30 PM [facility] Glucose 99 70 - 100 mg/dL LAB CHEMISTRY METHOD 05/16/2025 1:30 PM [facility] BUN 11 5 - 25 mg/dL LAB CHEMISTRY METHOD 05/16/2025 1:30 PM [facility] Creatinine 1.24(H) 0.50 - 1.10 mg/dL LAB CHEMISTRY METHOD 05/16/2025 1:30 PM [facility] eGFR 45(L) >=60 mL/min/1. 73m2 LAB CHEMISTRY METHOD 05/16/2025 1:30 PM [facility] Comment:Calculation based on the Chronic Kidney Disease Epidemiology Collaboration (CKD-EPI) equation refit without adjustment for race. BUN/Creatinine Ratio 8.9 LAB CHEMISTRY METHOD 05/16/2025 1:30 PM [facility] Calcium 8.8 8.5 - 10.5 mg/dL LAB CHEMISTRY METHOD 05/16/2025 1:30 PM [facility] AST (SGOT) 21 [...] 1:[address] [facility] Blood Venous blood specimen / Unknown 05/16/2025 5:30 AM EDT 05/16/2025 11:19 AM EDT us Yared Villa MD LAB BLOOD ORDERABLES Final Resu lt [facility] [address] [place] [address], * (ABNORMAL) Complete blood count (05/16/2025 5:30 AM EDT) WBC 5.1 4.8 - 10.8 K/mcL LAB HEMETOLOGY METHOD 05/16/2025 12:[address] [facility] RBC 3.50(L) 3.80 - 4.80 M/mcL LAB HEMETOLOGY METHOD 05/16/2025 12:[address] [facility] Hemoglobin 10.7(L) 11.5 - 16.0 g/dL LAB HEMETOLOGY METHOD 05/16/2025 12:[address] [facility] Hematocrit 34.5(L) 35.0 - 47.0 % LAB HEMETOLOGY METHOD 05/16/2025 12:[address] [facility] MCV 100.0(H) 79.0 - 98.0 FL LAB HEMETOLOGY METHOD 05/16/2025 12:[address] [facility] MCH 31.0 27.0 - 32.0 pcg LAB HEMETOLOGY METHOD 05/16/2025 12:[address] [facility] MCHC 31.0(L) 32.0 - 37.0 g/dL LAB HEMETOLOGY METHOD 05/16/2025 12:[address] [facility] RDW 12.7 11.0 - 15.0 % LAB HEMETOLOGY METHOD 05/16/2025 12:[address] [facility] Platelets 241 130 - 400 K/mcL LAB HEMETOLOGY METHOD 05/16/2025 12:[address] [facility] MPV 11.1(H) 7.0 - 11.0 FL LAB HEMETOLOGY METHOD 05/16/2025 12:[address] [facility] NRBC 0.0 <1.0 % LAB HEMETOLOGY METHOD 05/16/2025 12:[address] [facility] NRBC Absolute 0.00 <0.10 K/mcL LAB HEMETOLOGY METHOD 05/16/2025 12:[address] [facility] Blood Venous blood specimen / Unknown Venipuncture / Unknown 05/16/2025 5:30 AM EDT 05/16/2025 11:19 AM EDT us Yared Villa MD LAB BLOOD ORDERABLES Final Resu lt [facility] [address] [place] [address], documented in this encounter Visit Diagnoses Diagnosis Type 2 diabetes mellitus with other diabetic kidney complication (CMS/HCC V24, CMS/[facility] V28) Essential (primary) hypertension Unspecified essential hypertension Muscle weakness (generalized) Other hyperlipidemia documented in this encounter Care Teams Division Road Supervisor Relationship Specialty Start Date End Date John Herrera NP [address] [facility] [place] PCP - General 05/30/23 documented as of this encounter
--- OUTSIDE RECORDS SUMMARY | 2025-08-27 11:34 | XMS_ITS | Clinical Summary ---
Author Organization [facility] Address [address] [place] [phone] Phone Care Team Providers Care Coal Mill Operator Name Role Phone John Herrera NP Primary Care Provider [phone] Allergies Active Allergy Reactions Criticality Noted Date [...] Office Visit [facility] Hematology Oncology [address] [place] [address] Ceasar Colon MD Infiltrating ductal carcinoma of left breast (CMS/HCC V24, CMS/HCC V28) (Primary Dx) from Last 3 Months Social [...] CMS/HCC V28) Other hyperlipidemia Muscle weakness (generalized) from Last 3 Months or Most Recently Relevant to Health Maintenance Results * (ABNORMAL) Basic metabolic panel (05/19/2025 5:10 AM EDT) Sodium 139 133 - 145 mmol/L LAB CHEMISTRY METHOD 05/19/2025 10:55 AM [facility] Potassium 5.1 3.5 - 5.5 mmol/L LAB CHEMISTRY METHOD 05/19/2025 10:55 AM [facility] Comment:Hemolysis present Chloride 108 96 - 110 mmol/L LAB CHEMISTRY METHOD 05/19/2025 10:55 AM [facility] CO2 25 21 - 32 mmol/L LAB CHEMISTRY METHOD 05/19/2025 10:55 AM [facility] Anion Gap 6 3 - 11 LAB CHEMISTRY METHOD 05/19/2025 10:55 AM [facility] Glucose 88 70 - 100 mg/dL LAB CHEMISTRY METHOD 05/19/2025 10:55 AM [facility] BUN 15 5 - 25 mg/dL LAB CHEMISTRY METHOD 05/19/2025 10:55 AM [facility] Creatinine 1.21(H) 0.50 - 1.10 mg/dL LAB CHEMISTRY METHOD 05/19/2025 10:55 AM [facility] eGFR 46(L) >=60 mL/min/1. 73m2 LAB CHEMISTRY METHOD 05/19/2025 10:55 AM [facility] Comment:Calculation based on the Chronic Kidney Disease Epidemiology Collaboration (CKD-EPI) equation refit without adjustment for race. BUN/Creatinine Ratio 12.4 LAB CHEMISTRY METHOD 05/19/2025 10:55 AM [facility] Calcium 8.9 8.5 - 10.5 mg/dL LAB CHEMISTRY METHOD 05/19/2025 10:55 AM [facility] Blood Venous blood specimen / Unknown Venipuncture / Unknown 05/19/2025 5:10 AM EDT 05/19/2025 10:15 AM EDT Yared Villa MD LAB BLOOD ORDERABLES Final Resu lt [facility] [address] [place] [address], from Last 3 Months or Most Recently Relevant to Health Maintenance Insurance MEDICARE HUMAN Care Teams Coal Mill Operator Relationship Specialty Start Date End Date John Herrera NP [address] [place], [place] PCP - General 05/30/23
--- OUTSIDE RECORDS SUMMARY | 2025-08-27 11:34 | XMS_ITS | Encounter Summary ---
Author Organization [facility] Address [address] [place] [address] Care Team Providers Care Cable Splicer Assistant Name Role Phone John Herrera NP Primary Care Provider Encounter Details Date Type Department Care Team (Late st Contact Info) Description 02/03/2024 Scanned Document [facility] Department of Internal Medicine & Nephrology [place] [address] [place] [phone] Karson Law MD [address] [address] Social History Tobacco Use Types Packs/Day Years [...] on filedocumented in this encounter Care Teams Cable Splicer Assistant Relationship Specialty Start Date End Date John Herrera NP [address] [facility] [place] [address] PCP - General Family Medicine 02/03/24 documented as of this encounter
--- OUTSIDE RECORDS SUMMARY | 2025-08-27 11:34 | XMS_ITS | Clinical Summary ---
Author Organization [facility] Prior to 02/19/25 Address [address] [place] [address] Care Team Providers Care Tamale Maker Name Role Phone John Herrera Primary Care Provider [phone] Allergies Active Allergy Reactions Criticality Noted Date [...] age to complete this topic Care Teams Tamale Maker Relationship Specialty Start Date End Date John Herrera [address] [facility] [place] [address] PCP - General Family Medicine 05/30/23
--- OUTSIDE RECORDS SUMMARY | 2025-08-27 11:34 | XMS_ITS | Encounter Summary ---
Author Organization [facility] Address [address] [place] [address] Care Team Providers Care Chlorination Operator Name Role Phone John Herrera NP Primary Care Provider [phone] Encounter Details Date Type Department Care Team (Late st Contact Info) Description 05/15/2025 Lab Requisition [facility] - Main Lab [address] [facility] [place] [phone] Yared Villa MD [address] [place] [address] Essential (primary) hypertension; Other hyperlipidemia; [...] diabetes mellitus with other diabetic kidney complication ([facility] V24, [facility] V28) Muscle weakness (generalized) documented in this [...] LAB CHEMISTRY METHOD 05/15/2025 10:22 AM EDT [facility] ALT (SGPT) 13 10 - 60 unit/L LAB CHEMISTRY METHOD 05/15/2025 10:22 AM EDT [facility] Alkaline Phosphatase 77 42 - 121 unit/L LAB CHEMISTRY METHOD 05/15/2025 10:22 AM EDT [facility] Total Protein 5.2(L) 6.0 - 8.0 g/dL LAB CHEMISTRY METHOD 05/15/2025 10:22 AM EDT [facility] Albumin 2.7(L) 3.2 - 5.0 g/dL LAB CHEMISTRY METHOD [facility] Total Bilirubin 0.3 0.0 - 1.4 mg/dL LAB CHEMISTRY METHOD 05/15/2025 10:22 AM T [facility] Blood Venous blood specimen / Unknown Venipuncture / Unknown 05/15/2025 5:12 AM EDT 05/15/2025 8:47 AM EDT Yared Villa MD LAB BLOOD ORDERABLES Final Resu lt [facility] [address] [place] [address], * (ABNORMAL) Complete blood count (05/15/2025 5:12 AM EDT) WBC 5.3 4.8 - 10.8 K/mcL LAB HEMETOLOGY METHOD 05/15/2025 9:47 AM EDT [facility] RBC 3.30(L) 3.80 - 4.80 M/mcL LAB HEMETOLOGY METHOD 05/15/2025 9:47 AM EDT [facility] Hemoglobin 10.1(L) 11.5 - 16.0 g/dL LAB HEMETOLOGY METHOD 05/15/2025 9:47 AM EDT [facility] Hematocrit 31.8(L) 35.0 - 47.0 % LAB HEMETOLOGY METHOD 05/15/2025 9:47 AM EDT [facility] MCV 97.5 79.0 - 98.0 FL LAB HEMETOLOGY METHOD 05/15/2025 9:47 AM EDT [facility] MCH 31.0 27.0 - 32.0 pcg LAB HEMETOLOGY METHOD 05/15/2025 9:47 AM EDT [facility] MCHC 31.8(L) 32.0 - 37.0 g/dL LAB HEMETOLOGY METHOD 05/15/2025 9[facility] RDW 12.7 11.0 - [...] MD LAB BLOOD ORDERABLES Final Resu lt [facility] [address] [place] [address], documented in this encounter Visit Diagnoses Diagnosis Essential (primary) hypertension Unspecified essential hypertension Other hyperlipidemia Type 2 diabetes mellitus with other diabetic kidney complication (CMS/HCC V24, CMS/HCC V28) Muscle weakness (generalized) documented in this encounter Care Teams Chlorination Operator Relationship Specialty Start Date End Date John Herrera NP [address] [facility] [place] PCP - General 05/30/23 documented as of this encounter
[2025-08-27 13:55] LABS: Appearance Urine Cloudy; Glucose Urine UA Negative (Negative); PH 5.5 (5.0-9.0); Specific Gravity - Urine >= 1.030 (1.005-1.025); UMIC TRIGGER UACC YES
[2025-08-27 14:04] LABS: UACC Culture Trigger YES
== END 2025-08-27 09:31 | disposition home or self-care (01) ==
LOC: HO.HMGCLNP 09:30
PROVIDERS: PCP Nurse Practitioner Family; Visit Provider Nurse Practitioner Family
DX: E11.9 Type 2 diabetes mellitus without complications (principal)
CPT/HCPCS: 81001; 87086

== ENCOUNTER 2025-08-31 11:25 | Outpatient (AMB) | payer MEDICARE, OTHER, SELFPAY ==
[2025-08-31 11:30] VITALS: BP 124/70; PULSE 67; RESP 16; O2SAT 100; BMI 32.0
--- NOTE | 2025-08-31 11:30 | MHC.PC.OV ---
Vital Signs 08/31/25 11:30 Height 5 ft Weight 164 lb BMI 32.0 BP 124/70 Blood Pressure Location Lt brachial Position Sitting Respiration 16 Pulse 67 Pulse Source Pulse Oximeter Pulse Oximetry (%) 100 Oxygen Delivery Method Room Air Intake Visit Reasons: 3 months F/U Languages And Literature Instructor Required: No Accompanied by: Self / Same As Patient Allergies cephalexin (From Keflex) Allergy (Severe, Verified 08/31/25 12:01) Swelling ciprofloxacin (From Cipro) Allergy (Severe, Verified 08/31/25 12:01) eye swelling penicillin G Allergy (Severe, Verified 08/31/25 12:01) Angioedema Penicillins Allergy (Severe, Verified 08/31/25 12:01) ANGIOEDEMA doxycycline Allergy (Intermediate, Verified 08/31/25 12:01) Vomiting meloxicam Allergy (Verified 08/31/25 12:01) Unknown NSAIDS (Non-Steroidal Anti-Inflamma Adverse Reaction (Verified 08/31/25 12:01) Unknown Sulfacet-R Allergy (Severe, Uncoded 08/31/25 12:01) Swelling Tobacco use date assessed: 08/31/25 Fall risk assessment: No Falls in past year Last assessed Fall Risk: 08/31/25 Dental Screening Dental Screen Date: 08/31/25 Did you have a dental visit in the last 12 months?: Yes Did you have a dental problem in the last 6 months where you did not have access to dental care?: No Was dental information given to patient?: Patient has dentist HPI 3 months F/U HPI Details Chief Complaint The patient's biggest complaint is ongoing knee weakness. History of Present Illness The patient is a 80 year old female presenting for a follow-up for diabetes and to address ongoing knee weakness and back pain. Her most recent A1c was 5.5, and her microalbumin was up to date. LABS are WNL She has been experiencing ongoing knee weakness with instability. The patient also has ongoing lower and middle back pain, for which she sees a painter interior finish, with her last visit being last month. Recently, she was prescribed an antibiotic to which she had an allergic reaction, resulting in severe nausea and vomiting, and subsequent fatigue. She was previously seeing a commercial illustrator but has not seen one in some time as she is waiting to find out where her former commercial illustrator has moved. Social History - Functional Status: The patient uses a quad cane for ambulation. - Level of Activity: She has a slow gait but is able to ambulate with assistance. Health Maintenance - Diabetes management: The patient is being followed for diabetes, with a recent HbA1c of 5.5. - Kidney disease screening: Her microalbumin was up to date. Review of Systems - Constitutional: Reports fatigue. - Musculoskeletal: Reports ongoing knee weakness and instability, as well as lower and middle back pain. - Gastrointestinal: Reports recent severe nausea and vomiting. - Allergic/Immunologic: Reports a recent allergic reaction to an antibiotic. Physical Exam General: Cooperative, healthy appearing, comfortable, no acute distress and well developed Orientation: Patient oriented x3 Limitations: No limitations Head: Normal to inspection Ears: Hearing grossly normal bilaterally Nose: Normal external nose present Face and sinus: Normal facial exam Eyes: Appearance normal, both eyes and all related structures Neck: Normal visual inspection and Yes full ROM Respiratory: Normal respiratory effort and able to speak in complete sentences. Clear to auscultation bilaterally Cardiovascular: Regular rate and rhythm. Normal S1 and S2. Systolic murmur noted GI: Normal to inspection. Soft to palpation and nontender Skin: No rashes or lesions noted Neuro: Patient oriented x3. Positive sensation use of monofilament by the feet. Positive patellar reflexes Extremities: Faint swelling bilaterally in knees. Uses a cane. Slow gait. Able to ambulate with the use of a quad cane Results - Labs: Recent Hemoglobin A1c was 5.5. - Labs: Microalbumin was up to date. Plan 1. Bilateral Knee Weakness Physical exam revealed faint bilateral swelling, but Rajendra's and Kirk's tests were negative, making ligamentous injury less likely. Osteoarthritis is suspected as the underlying cause. To further evaluate the extent of arthritis, bilateral knee X-rays will be ordered, and a referral to physical therapy will be placed. Discussion Notes I discussed with the patient that her knee exam suggests arthritis is the most likely cause of her weakness, rather than a ligament injury. I explained that we will get bilateral knee X-rays to assess the severity of the arthritis and will also refer her to physical therapy to help with her symptoms. Patient Instructions - We will be getting X-rays of both of your knees to check for arthritis. - We are also sending a referral for you to see a physical therapist to help with the weakness in your knees. [facility] Medical History UTI (urinary tract infection) Acute lower GI bleeding Common bile duct dilation Diarrhea Nausea Colitis Elevated cholesterol Breast cancer Hx of radiation therapy Depression Spinal stenosis Degenerative disc disease, cervical Arthritis Back pain HTN (hypertension) Diabetes Disc degeneration, lumbar Lumbar radiculopathy Osteoarthritis Breast cancer, left Surgical History Hx of bilateral cataract extraction History of knee replacement History of carpal tunnel release of both wrists Hx of cholecystectomy Hx of appendectomy Hx of hysterectomy History of lumpectomy of left breast H/O colonoscopy History of total left knee replacement Social History Household Members: None Housing: House Do you presently have visiting nurse or other home services: No Alcohol intake: current Alcohol intake frequency: 0-2 drinks per day Patient Tobacco Use Status: Former Tobacco user Tobacco use type: Cigarette Years Smoked: 50 years ago e-Cigarette/Vaping Use: Never Used Second Hand Smoke Exposure: No Substance Use Type: Marijuana Advance Directives Date on File: 05/05/25 service: No Current occupational status: employed Current occupation: [employer] Current occupational exposures/hazards: No Cognitive needs: No Hearing needs: No Vision needs: Yes Questionnaire PHQ-9 Over the last 2 weeks, how often have you been bothered by any of the following problems? 1. Little interest or pleasure in doing things: not at all 2. Feeling down, depressed, or hopeless: not at all 3. Trouble falling or staying asleep, or sleeping too much: not at all 4. Feeling tired or having little energy: not at all 5. Poor appetite or overeating: not at all 6. Feeling bad about yourself - or that you are a failure or have let yourself or your family down: not at all 7. Trouble concentrating on things, such as reading the newspaper or watching television: not at all 8. Moving or speaking so slowly that other people could have noticed. Or the opposite - being so fidgety or restless that you have been moving around a lot more than usual: not at all 9. Thoughts that you would be better off or of hurting yourself in some way: not at all Total score: 0 Depression Screening Interpretation: Negative Depression Screening Done: Yes 83579 - PHQ-9 Billing: Yes Source: Developed by Drs. Taiwo Banegas, Pat Benoit, Nestor Zimmer and colleagues, with an educational valarie from [employer]. Thrive Questionnaire Date Thrive assessed: 12/13/24 I am a: Patient What is your living situation today?: I have a steady place to live Within the past 12 months, did the food you bought not last and you didn't have the money to get more?: Never true Within the past 12 months, did you worry whether your food would run out before you got money to buy more?: Never true Do you have trouble paying for medicines?: No Do you have trouble getting transportation to medical appointments?: No Do you have trouble paying your heating and electricity bill?: No Do you have trouble taking care of your child, family member or friend?: No Do you have trouble with day-to-day activities such as bathing, preparing meals, shopping, managing finances, etc.?: No Are you currently unemployed and looking for a job?: No Are you interested in more education?: No Please select the resources that you would like help with: None Currently or been in a relationship where the following occur: I choose not to answer THRIVE Score: 0 LESLIE-7 AMB Questionnaire LESLIE-7 Date LESLIE - 7 assessed: 08/31/25 Feeling nervous, anxious, or on edge: 0 = Not at all Not being able to stop or control worryin = Not at all Worrying too much about different things: 0 = Not at all Trouble relaxin = Not at all Being so restless that it is hard to sit still: 0 = Not at all Becoming easily annoyed or irritable: 0 = Not at all Feeling afraid as if something awful might happen: 0 = Not at all Total LESLIE-7 score (0-4 normal; 5-9 mild; 10-14 moderate; 15-21 severe): 0 Source: Developed by Drs. Taiwo Banegas, Nestor Agrawal and colleagues, with an educational valarie from [employer]. LESLIE-7 Assessment Billing LESLIE-7 Assessment Tool: LESLIE-7 Assessment 06382 Physical exam (Primary Care) Vital Signs: Last Vital Signs Pulse 67 08/31/25 11:30 Resp 16 08/31/25 11:30 BP 124/70 08/31/25 11:30 Pulse Ox 100 08/31/25 11:30 Oxygen Delivery Method Room Air 08/31/25 11:30 BMI result Body Mass Index 32.0 Tobacco/Smoking Status: Tobacco use Status Tobacco use date assessed 08/31/25 08/31/25 11:34 Patient Tobacco Use Status Former Tobacco user 08/31/25 11:34 Tobacco use type Cigarette 08/31/25 11:34 e-Cigarette/Vaping Use Never Used 08/31/25 11:34 PHQ-9: PHQ-9 Score PHQ-9: Total score 0 08/31/25 12:03 Depression Screening Interpretation: Negative Thrive Assessment: Date of Thrive Assessment Date Thrive assessed 12/13/24 08/31/25 11:34 Currently or been in a relationship where the following occur: I choose not to answer Coding Level of Care Code Est Pt Level 3 (94301) Diagnoses Bilateral knee pain M25.561; M25.562 Additional Codes LESLIE-7 Assessment Billing - LESLIE-7 Assessment Tool: LESLIE-7 Assessment 84004 ([id number]) PHQ-9 - 21607 - PHQ-9 Billing: Yes ([id number]) Assessment & Plan Assessment & Plan (1) Bilateral knee pain: Code(s): M25.561 - Pain in right knee; M25.562 - Pain in left knee Category: Medical (2) Bilateral knee pain: Code(s): M25.561 - Pain in right knee; M25.562 - Pain in left knee Category: Medical Plan . Orders: Orders XR Knee Lucio 3V Today M25.561 - Pain in right knee, M25.562 - Pain in left knee PT Evaluation and Treatment Today M25.561 - Pain in right knee, M25.562 - Pain in left knee
== END 2025-08-31 12:56 | disposition home or self-care (01) ==
LOC: HO.HMCC 11:26
PROVIDERS: PCP Nurse Practitioner Family; Visit Provider Nurse Practitioner Family
DX: M25.561 Pain in right knee (principal); M25.562 Pain in left knee

== ENCOUNTER 2025-08-31 11:25 | Outpatient (REF) | payer MEDICARE, OTHER, SELFPAY ==
--- NOTE | ~2025-08-31 | XR_ITS ---
Exam: X-ray, bilateral knees.XR KNEE 3 VIEWS BILATERAL TECHNIQUE: Three views lower extremity joint, bilateral knees INDICATION: knee pain COMPARISON: None available. FINDINGS: RIGHT KNEE: There are changes from total knee arthroplasty. There is no abnormal lucency at bone metal interfaces. There is methacrylate securing the tibial and femoral components. There is no joint effusion. There is anatomic alignment. LEFT KNEE: There are changes from total knee arthroplasty. There is no abnormal lucency at bone metal interfaces. Bony exostosis posterior from the distal femur is likely a tug lesion. There is methacrylate securing the tibial and femoral components. There is no joint effusion. There is anatomic alignment XR/XR Knee Lucio 3V IMPRESSION: Right knee: Unremarkable total knee arthroplasty. Left knee: Unremarkable total knee arthroplasty. Electronically signed by: Chidi Joseph MD 08/31/2025 12:55 PM EST
== END 2025-08-31 11:26 | disposition home or self-care (01) ==
LOC: HO.HMGCX 11:25
PROVIDERS: PCP Nurse Practitioner Family; Visit Provider Nurse Practitioner Family
DX: M25.562 Pain in left knee (principal); M25.561 Pain in right knee; Z13.39 Encounter for screening examination for other mental health and behavioral disorders; Z13.31 Encounter for screening for depression
CPT/HCPCS: 73562; 96127; 99212

== ENCOUNTER → 2025-08-31 12:30 | Outpatient (BNV) | payer MEDICARE, OTHER, SELFPAY | PROVIDERS: PCP Nurse Practitioner Family; Visit Provider Radiology Diagnostic Radiology | DX: Z96.653 Presence of artificial knee joint, bilateral (principal) | CPT/HCPCS: 73562 ==

== ENCOUNTER 2025-08-31 14:46 | Outpatient (REF) | payer SELFPAY ==
--- OUTSIDE RECORDS SUMMARY | 2024-03-26 06:20 | XMS_ITS ---
Author Organization [facility] Address [address] [place] [address] Care Team Providers Care Eyeglass Assembler Name Role Phone CHANDU CHISHOLM Primary Care Provider Taiwo Azar Unavailable [phone] REASON FOR VISIT diarrhea,wt loss,nausea Problems Problem Type SNOMED Code ICD Code Onset Dates Problem Status W/U Status Risk Notes Problem Diverticular disease of colon (465929793) Diverticulosis of large intestine without perforation or abscess without bleeding (K57.30) Active confirmed Encounters Encounter Location Date Provider Diagnosis [facility] [address] [place], [place] [phone] 03/26/2024 Taiwo Mcintosh Diarrhea R19.7 ; W [...] NANCY VORA CDOB: 7 (80 yo F)Acc No.[id number]:03/26/2024 EGD and COL/MAC Patient: NANCY COHEN Provider: Domo Mcintosh MD :1945 A ge:78 Y S ex:Female Date:03/26/2024 Address:[address] [address] , [id number] Pcp:CHANDU CHISHOLM Subjective: * Chief Complaints: * D iarrhea,wt loss,nausea Assessment: * Assessment: 1. D iarrhea - R19.7 (Primary) 2 . W eight loss - R63.4 3 .?Diverticulosis of large intestine without perforation or abscess without bleeding - K57.30? 4. O ther hemorrhoids - K64.8 5 . N ausea - R11.0 ?6. H iatal hernia - K44.9 Plan: * Procedure Codes: 4 5380 COLONOSCOPY AND [id number] INTRVL 3+YRS PTS CLNSCP [id number] RCMND FLW-UP 10 YRS DOCD, Modifiers: 8P 64011 UPPER GI ENDOSCOPY, BIOPSY Billing Information: * Procedure Codes: 84555 COLONOSCOPY AND BIOPSY. 0529F INTRVL 3+YRS PTS CLNSCP DOCD. 0528F RCMND FLW-UP 10 YRS DOCD. Modifiers: 8P 78935 UPPER GI ENDOSCOPY, BIOPSY. * The named appointment provid er may or may not be the originator of this progress note, and it is not deemed complete until electronically signed by the appointment provider. Sign off status: Pending * Provider: Domo Mcintosh MD Date: 0 03/26/2024 Generated for Leidy elaine/Manolo/eTransmitting on: 1 11/01/2024 11:11 PM EST
--- OUTSIDE RECORDS SUMMARY | 2025-08-31 23:11 | XMS_ITS | Encounter Summary ---
Author Organization [facility] Address [address] [place] [address] Phone Care Team Providers Care Television Schedule Coordinator Name Role Phone John Herrera NP Primary Care Provider [phone] Reason for Visit * Reason Comments Med Refill Encounter Details Date Type Department Care Team (Late st Contact Info) Description 11/15/2023 Refill [facility] [address] [place] [phone] Karson Law MD Social History Tobacco Use [...] on filedocumented in this encounter Care Teams Television Schedule Coordinator Relationship Specialty Start Date End Date John Herrera NP [address] [facility] [place] [address] PCP - General Nurse Practitioner 09/05/21 documented as of this encounter
--- OUTSIDE RECORDS SUMMARY | 2025-08-31 23:11 | XMS_ITS | Clinical Summary ---
Author Organization [facility] Address [address] [facility] [address] [place] [address] Phone Care Team Providers Care Radar Engineering Teacher Name Role Phone John Herrera NP Primary Care Provider [phone] Allergies Active Allergy Reactions Criticality Noted Date [...] PM EST) Hemoglobin A1C 5.4 (4.0-5.6) % [facility] Comment: MONITORING: In known diabetic patients, hemoglobin A1c targets should be discussed with health care provider. DIAGNOSTIC USE: The [place] Diabetes [employer] (ADA) and the World Health [...] Supplement 1 Testing performed or reported by [facility], a Service of [facility], [address] [place] [address] Niall Pinto MD, [facility]# [id number] Blood specimen (specimen) Venous blood / Unknown 10/14/2022 4:03 PM EST 10/14/2022 4:05 PM EST us Karson Law MD LAB BLOOD ORDERABLES Carol rasmussen Result [facility] from Last 3 Months or Most Recently Relevant to Health Maintenance Insurance [employer] Medicare [facility] Medicare Care Teams Radar Engineering Teacher Relationship Specialty Start Date End Date John Herrera NP [address] [place] [address] PCP - General Nurse Practitioner 09/05/21
--- OUTSIDE RECORDS SUMMARY | 2025-08-31 23:11 | XMS_ITS | Encounter Summary ---
Author Organization [facility] Address [address] [place] [address] Care Team Providers Care Utility Sales Representative Name Role Phone John Herrera NP Primary Care Provider Encounter Details Date Type Department Care Team (Late st Contact Info) Description 02/03/2024 Scanned Document [facility] [address] [place] [phone] Karson Law MD [address] [address] Social History Tobacco Use Types Packs/Day Years [...] on filedocumented in this encounter Care Teams Utility Sales Representative Relationship Specialty Start Date End Date John Herrera NP [address] [facility] [place] [address] PCP - General Family Medicine 02/03/24 documented as of this encounter
--- OUTSIDE RECORDS SUMMARY | 2025-08-31 23:11 | XMS_ITS | Data Portability ---
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 Name Role Phone CHANDU CHISHOLM Primary Care Provider Assessment Encounter Date Assessment Date Assessment LastModified by Organization Details LastModified Time 08/16/2024 08/16/2024 Kayleen Wilson is a 79 [...] lumbar epidural injection before her trip to [place] next year [email or web address] Not available 08/23/2024 11:41:24 [...] three months [email or web address] Not available 12/07/2024 10:17:33 03/30/2025 03/30/2025 Kayleen [...] three months tmanikantan Not available 03/30/2025 16:02:15 05/04/2025 05/04/2025 Kayleen Wilson is a 79 year old woman with complaints of low back pain radiating into both hips. I recommend a repeat Lumbar epidural steroid injection under fluoroscopic guidance . The risks and benefits of the procedure were discussed in detail. She wishes to proceed. She will follow up in three months. Her Mid back pain has improved with antibiotics for enteritis tmanikantan Not available 05/05/2025 16:51:29 08/02/2025 08/02/2025 Kayleen Wilson is a 80 year old woman with complaints of low back pain radiating into both hips. She is here for a Lumbar epidural steroid injection under fluoroscopic guidance . The risks and benefits of the procedure were discussed in detail. She wishes to proceed. She will follow up in three months tmanikantan Not available 08/02/2025 11:57:34 Plan of Treatment Reminders Order Date Submit Date Provider Last Modified By Organization Details Last Modified Time Details Appointments PROCEDURE 2025 11:30A M Omar mayberry MD Not available Not available Not available Lab None recorded. Referral None recorded. Procedures None recorded. Surgeries None recorded. Imaging None recorded. Medication Orders lidocaine 5 % topical patch 2023 024 [id number], [address], [place], [id number], 08/16/2024 10:38:29 Patient TargetsNo targets recorded. Patient Instructions Encounter Date Encounter Id Patient Instructions Last Modified By Organization Details Last Modified Time 12/07/2024 [id number] She was advised against bed rest lasting longer than four days and to continue activities as tolerated. [email or web address] Not available 12/07/2024 10:18:55 03/30/2025 [id number] She was advised against bed rest lasting longer than four days and to continue activities as tolerated. [email or web address] Not available 03/30/2025 16:02:16 05/04/2025 [id number] She was advised against bed rest lasting longer than four days and to continue activities as tolerated. [email or web address] Not available 05/05/2025 16:48:19 08/02/2025 [id number] She was advised against bed rest lasting longer than four days and to continue activities as tolerated. [email or web address] Not available 08/02/2025 11:56:22 Reason for Referral None Reported. Problems Name Problem SNOMED Code Status Onset Date Resolution Date Notes Provider Name and Address Organization Details Recorded Time Degeneratio n of lumbar interverteb ral disc 02994811 Completed 04/29/2019 Omar mayberry MD [address] , [address], [place], [address], [place] [facility] 15:16:59 Degeneratio n of cervical interverteb ral disc 31175059 Active Omar mayberry MD [address] , [address], [place], [address], [place] [facility] 15:16:55 Muscle pain 32831578 Active Omar mayberry MD [address] , [address], [place], [address], [place] [facility] 9 15:17:16 Cervical spondylosis without myelopathy 654509462 Active Omar mayberry MD [address] , [address], [place], [address], [place] [facility] 15:17:31 Degeneratio n of thoracic interverteb ral disc 80501288 Active Omar mayberry MD [address] , [address], [place], [address], [place] [facility] 9 15:17:48 Osteoarthri tis of knee 291312793 Active Omar mayberry MD [address] , [address], [place], [address], [place] [facility] 1 15:53:33 Lumbosacral radiculopat hy 0162874 Active 2023 Omar mayberry MD [address] , [address], [place], [address], [place] [facility] 4 10:50:13 Problem Notes None recorded. Procedures Surgical History Date Name Laterality Status Provider Name and Address Organization Details Recorded Time 08/02/20 25 Lumbar Epidural steroid injection under fluoroscopic guidance completed Omar Coulter MD [address] , [address], [place], [address], [place] [facility] 08/02/2025 11:57:07 03/30/20 25 Lumbar Epidural steroid injection under fluoroscopic guidance completed Omar Coulter MD [address] , [address], [facility] [place], [address], [place] [facility] 03/30/2025 16:02:51 12/08/19 25 Lumbar Epidural steroid injection under fluoroscopic guidance completed Omar Coulter MD [address] , [address], [place], [address], [place] [facility] 12/07/2024 10:18:43 06/23/20 24 Lumbar Epidural steroid injection under fluoroscopic guidance completed Omar Coulter MD [address] , [address], [facility] [place], [address], [place] [facility] 06/23/2024 10:39:49 06/01/20 24 Fluoroscopic Guided Lumbar Facet Steroid Injections of levels completed Omar Coulter MD [address] , [address], [place], [address], [place] [facility] 06/01/2024 11:29:39 01/27/20 24 Lumbar Epidural steroid injection under fluoroscopic guidance completed Omar Coulter MD [address] , [address], [place], [address], [place] [facility] 01/27/2024 10:34:03 10/28/19 24 Lumbar Epidural steroid injection under fluoroscopic guidance completed Omar Coulter MD [address] , [address], [facility] [place], [address], [place] [facility] 10/28/2023 10:49:28 04/22/20 23 Lumbar Epidural steroid injection under fluoroscopic guidance completed Omar Coulter MD [address] , [address], [place], [address], [place] [facility] 04/22/2023 11:45:19 05/28/20 22 Lumbar Epidural steroid injection under fluoroscopic guidance completed Omar Coulter MD [address] , [address], [place], [address], [place] [facility] 05/29/2022 14:22:44 01/02/20 22 Lumbar Epidural steroid injection under fluoroscopic guidance completed Omar Coulter MD [address] , [address], [place], [address], [place] [facility] 01/01/2022 14:29:09 09/18/20 21 Lumbar Epidural steroid injection under fluoroscopic guidance completed Omar Coulter MD [address] , [address], [place], [address], [place] [facility] 09/19/2021 12:19:14 02/22/20 21 Intra-articular Knee Steroid Injection completed Omar Coulter MD [address] , [address], [place], [address], [place] [facility] 02/22/2021 14:06:45 02/16/20 21 Intra-articular Knee Steroid Injection completed Omar Coulter MD [address] , [address], [place], [address], [place] [facility] 02/15/2021 16:18:43 09/27/19 21 Thoracic Epidural Steroid injection under fluroscopic guidance completed Omar Coulter MD [address] , [address], [place], [address], [place] [facility] 09/27/2020 11:32:52 06/28/20 20 Trigger Point Injections under ultrasound guidance completed Omar Coulter MD [address] , [address], [place], [address], [place] [facility] 06/28/2020 14:43:13 02/10/20 20 Trigger Point Injections under ultrasound guidance completed Omar Coulter MD [address] , [address], [place], [address], [place] [facility] 02/10/2020 13:40:00 11/15/19 20 Trigger Point Injections under ultrasound guidance completed Omar Coulter MD [address] , [address], [place], [address], [place] [facility] 11/19/2019 09:42:53 10/25/19 20 Trigger Point Injections under ultrasound guidance completed Omar Coulter MD [address] [facility] , [address], [place], [address], [place] [facility] 10/25/2019 14:53:01 06/23/20 19 Trigger Point Injections under ultrasound guidance completed Omar Coulter MD [address] [facility] , [address], [place], [address], [place] [facility] 07/05/2019 11:23:51 06/07/20 19 Trigger Point Injections under ultrasound guidance completed Omar Coulter MD [address] [facility] , [address], [place], [address], [place] [facility] 06/07/2019 15:03:55 05/18/20 19 Trigger Point Injections under ultrasound guidance completed Omar Coulter MD [address] [facility] , [address], [place], [address], [place] [facility] 05/19/2019 09:45:26 Hysterectomy completed Missy Hansen [place] - [facility] 04/29/2019 13:26:48 Cholecystectomy completed Missy Hansen [place] [facility] 04/29/2019 13:27:00 Other completed Missy Hansen [place] [facility] 04/29/2019 13:28:52 Carpal tunnel release completed Missybridgett Hansen [place] [facility] 04/29/2019 13:29:05 section completed Missybridgett Popeer [place] [facility] 04/29/2019 14:06:18 total knee replacement completed Omar Coulter MD [address] [facility] , [address], [place], [address], [place] [facility] 10/28/2023 10:49:05 Imaging Results None recorded. Procedure Notes None recorded. Medical Equipment None Reported. Allergies Allergen ID Allergen Name Allergen Category Reaction Reaction Severity Criticality Documentation Date Start Date Code Code System Note Provider Name and Address Organization Details Recorded Time 91305 Product containin g penicilli n (product) medicatio n facial swelling itching Not available Not available Not available 04/29/2019 53752 8001 SNOMED Missy Popeluisa trimble [place] [facility] 9 13:15:37 11815 Cipro medicatio n facial swelling itching Not available Not available Not available 04/29/201908872 3 RxNorm Missy Hansen nai, [place] [facility] 9 13:15:56 85425 Substance with sulfonami de structure and antibacte rial mechanism of action (substanc e) medicatio n facial swelling severe Not available 02/15/2021 31554 8003 SNOMED Tamiko Hua trimble [place] [facility] 15:09:34 84798 Keflex medicatio n facial swelling severe Not available 02/15/202136531 7 RxNorm Tamiko Hua [place], [place] [facility] 15:09:55 82660 Non-stero idal anti-infl ammatory agent (substanc e) medicatio n Not available Not available unabletoasse 05/28/2022 27826 5008 SNOMED per renal Thenu Juice mayberry MD [address] [facility] [address], [facility] [place] [address] [facility] [place] [facility] 2 13:18:13 20573 hydromorp omid medicatio n vomiting severe low 06/09/20232022 3423 RxNorm Dee Dee trimble [place] [facility] 3 11:42:51 87633 tramadol medicatio n vomiting severe low 06/09/20232022 61915 RxNorm Dee Dee trimble [place] [facility] 3 11:43:26 29970 meloxicam medicatio n Not available Not available Not available 01/27/2024 23011 RxNorm Koki trimble [place] [facility] 4 10:07:29 Medications Name Sig Start Date Stop Date Status Note LastModified by Organization Details LastModified Time cyclobenzap rine 10 mg tablet 04/29 completed Not Available Not Available Not Available methocarbam ol 500 mg tablet TAKE 1 TABLET BY MOUTH THREE TIMES DAILY NEEDED FOR MUSCLE SPASM active Not Available Not Available No t Available anastrozole 1 mg tablet TAKE 1 [...] MOUTH EVERY 8 HOURS NEEDED FOR NAUSEA OR VOMITING active Not Available Not Available No t Available famotidine 40 mg tablet TAKE 1 TABLET BY MOUTH AT BEDTIME 06/09 completed Not Available Not Available Not Available prednisone 20 mg tablet TAKE 2 TABLETS BY MOUTH DAILY FOR 6 DAYS 05/04 completed Not Available Not Available Not Available Debrox 6.5 % ear drops INSTILL 5 DROPPERFU L TO AFFECTED EAR TWICE DAILY 05/04 completed Not Available Not Available Not Available Lantus U-100 Insulin 100 unit/mL subcutaneou [...] 1 TABLET BY MOUTH THREE TIMES DAILY active Not Available Not Available No t Available hydromorpho ne 2 mg tablet TAKE 1 TO 2 TABLETS BY MOUTH EVERY 4 HOURS NEEDED FOR MODERATE RO SEVERE PAIN 06/09 completed Not Available Not Available Not Available magnesium oxide 400 mg (241.3 mg magnesium) tablet TAKE 1 TABLET BY MOUTH EVERY DAY FOR 30 DAYS active Not Available Not Available No t Available lorazepam 0.5 mg tablet TAKE 1 [...] one-acetic acid 1 %-2 % ear drops 05/04 completed Not Available Not Available Not Available [...] Available Not Available gabapentin 100 mg capsule TAKE 1 CAPSULE BY MOUTH THREE TIMES DAILY active Not Available Not Available No t Available ergocalcife rol (vitamin D2) 1,250 mcg [...] 4 TO 6 HOURS NEEDED FOR NAUSEA 05/04 completed Not Available Not Available Not Available losartan 100 mg tablet 05/18 completed [...] %-dexametha sone 0.1 % ear drops,suspe nsion 05/04 completed Not Available Not Available Not Available [...] Available Not Available Januvia 100 mg tablet TAKE 1 TABLET BY MOUTH DAILY active Not Available Not Available No t Available Lantus Solostar U-100 Insulin 100 unit/mL (3 mL) subcutaneou s pen INJECT 12 UNITS INTO THE SKIN EVERY AM active Not Available Not Available No t [...] TAKE 1 TABLET BY MOUTH TWICE DAILY 05/04 completed Not Available Not Available Not Available Culturelle 15 billion cell sprinkle capsule TAKE 1 CAPSULE BY MOUTH EVERY DAY 02/15 completed Not Available Not Available Not Available Shingrix (PF) 50 mcg/0.5 mL intramuscul ar suspension, kit 05/18 completed Not Available Not Available Not Available Fluzone High-Dose 6008-6806 (PF) 180 mcg/0.5 mL intramuscul ar syringe ADM 0.5ML IM UTD 04/29 completed Not Available Not Available Not Available Fluad 2018- 65yr up(PF)45 mcg(15 mcgx3)/0.5 mL intramuscul ar syringe ADM 0.5ML IM UTD 05/18 completed Not Available Not Available Not Available Fluzone High-Dose Quad 2019- (PF) 240 mcg/0.7 mL IM syringe ADM 0.7ML IM UTD 09/20 completed Not Available Not Available Not Available Ultra-Fine Pen Needle 31 gauge x 5/16 USE TO INJECT INSULIN DAILY active Not Available Not Available No t Available Vitals Date Recorded Body height Heart rate Oxygen saturation Systolic And Diastolic Provider Name and Address Organization Details Last Updated DateTime 12/07/2024 154.94 cm 51 /min 99 % 175/58 mm[Hg] Joyce Putz [facility] 12/07/2024 09:02:02 Date Recorded Body height Systolic And Diastolic Provider Name and Address Organization Details Last Updated DateTime 03/30/2025 154.94 cm 181/52 mm[Hg] Nathalia Jessie [place] [facility] 03/30/2025 11:03:31 Date Recorded Body height Heart rate Oxygen saturation Systolic And Diastolic Provider Name and Address Organization Details Last Updated DateTime 05/04/2025 154.94 cm 68 /min 98 % 133/58 mm[Hg] Omar Coulter MD [address] [facility] , [address], [place], [address] , [place] [facility] 05/04/2025 14:36:51 Date Recorded Body height Heart rate Oxygen saturation Systolic And Diastolic Provider Name and Address Organization Details Last Updated DateTime 08/02/2025 154.94 cm 53 /min 98 % 135/35 mm[Hg] Joyce Barney [facility] 08/02/2025 11:31:44 Date Recorded Body height Heart rate Oxygen saturation Pain severity - 0-10 verbal numeric rating [Score] - Reported Systolic And Diastolic Provider Name and Address Organization Details Last Updated DateTime 08/16/2024 154.94 cm 61 /min 99 % 10 181/82 mm[Hg] Koki Hollins [place] [facility] 10:06:03 Social History Question Answer Notes LastModified by CHARMS PPEC Details LastModified Time Tobacco Smoking Status Former Smoker [facility] x [facility] 03:16:09 Which Illicit Or Recreational Drugs Have You Used? No [id number] Information not available 07/07/2020 Education 12 With Some College [email or web address] Information not available 04/29/2019 Live Alone Or With Others? Alone [email or web address] Information not available 04/29/2019 Marital Status Informatio n not available 04/29/2019 How Many Years Have You Smoked Tobacco? 3 [id number] Information not available 07/07/2020 Sex: Unknown Functional Status Question Answer Note LastModified by CHARMS PPEC Details LastModified Time What is your level of alcohol consumption? Occasional [id number] Information not available 07/07/2020 Are you currently employed? 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 Family History Relationship Description Onset Age of this Age Resolved Age Notes LastModified by Organization Details LastModified Time Mother Alzheimer's disease Not available 2018 13:21:48 Mother Family history of Thyroid disorder [email or web address] Not available 2018 13:22:35 Maternal Grandmother Alzheimer's disease Not available 2018 13:21:48 Maternal Aunt Alzheimer's disease [email or web address] Not available 2018 13:21:48 Father Diabetes mellitus [email or web address] Not available 2018 13:22:01 Father Heart disease [email or web address] Not available 2018 13:22:09 Medical History Condition Response Diabetes Y Gout Y Arthritis Y Kidney Stones Y High Cholesterol Y Hypertension Y Depression Y Hypothyroidism Y Kidney Disease Y Gynecological HistoryNo gynecological history recorded. Obstetrics History GPAL:G 0 P 0 0 0 0 Past Encounters Encounter ID Performer Location Encounter Start Date Encounter Closed Date Diagnosis/Indication Diagnosis SNOMED-CT Code Diagnosis ICD10 Code Diagnosis IMO Codes Diagnosis Note [id number] Omar Coulter MD PAIN OFFICE [address] [facility] [place] [address] 04/29/2019 13:08:47 04/29/2019 15:48:56 Muscle pain 58980796 M79.10 Degenerati on of cervical intervertebral disc 25396354 M50.30 Cervical s pondylosis without myelopathy 598076279 M47.812 Degenerati on of thoracic intervertebral disc 13632349 M51.34 [id number] Omar Coulter MD PAIN OFFICE [address] [facility] [place] [address] 05/18/2019 13:05:28 05/19/2019 09:47:26 Muscle pain 40433763 M79.10 Degenerati on of cervical intervertebral disc 27910623 M50.30 Cervical s pondylosis without myelopathy 048672880 M47.812 Degenerati on of thoracic intervertebral disc 91808072 M51.34 [id number] Thenu Manikantan , MD PAIN OFFICE [address] [facility] [place] [address] 06/07/2019 12:59:28 06/07/2019 15:14:41 Muscle pain 19342082 M79.10 Degenerati on of cervical intervertebral disc 16332213 M50.30 Cervical s pondylosis without myelopathy 952299225 M47.812 Degenerati on of thoracic intervertebral disc 49897031 M51.34 [id number] Omar Coulter MD PAIN OFFICE [address] [facility] [place] [address] 06/23/2019 15:13:29 07/05/2019 11:29:45 Muscle pain 50984897 M79.10 Degenerati on of cervical intervertebral disc 77935412 M50.30 Cervical s pondylosis without myelopathy 304684202 M47.812 Degenerati on of thoracic intervertebral disc 23935058 M51.34 [id number] Omar Coulter MD PAIN OFFICE [address] [facility] [place] [address] 10/25/2019 14:17:47 10/25/2019 14:54:29 Muscle pain 41716631 M79.10 Degenerati on of cervical intervertebral disc 55289959 M50.30 Cervical s pondylosis without myelopathy 557216132 M47.812 Degenerati on of thoracic intervertebral disc 74160483 M51.34 [id number] Omar Coulter MD PAIN OFFICE [address] [facility] [place] [address] 11/15/2019 14:20:57 11/19/2019 09:46:43 Muscle pain 02737816 M79.18 Degenerati on of cervical intervertebral disc 97567649 M50.30 Cervical s pondylosis without myelopathy 038909824 M47.812 Degenerati on of thoracic intervertebral disc 73321377 M51.34 [id number] Omar Coulter MD PAIN OFFICE [address] [facility] [place] [address] 01/25/2020 10:30:04 02/10/2020 10:22:36 Muscle pain 85997275 M79.10 Degenerati on of cervical intervertebral disc 64724812 M50.30 Cervical s pondylosis without myelopathy 461997902 M47.812 Degenerati on of thoracic intervertebral disc 26186493 M51.34 [id number] Omar Coulter MD PAIN OFFICE [address] [place] [address] [place] [address] 02/10/2020 13:00:54 02/10/2020 13:45:55 Muscle pain 21233459 M79.18 Degenerati on of cervical intervertebral disc 58556012 M50.30 Cervical s pondylosis without myelopathy 936521551 M47.812 Degenerati on of thoracic intervertebral disc 66805355 M51.34 [id number] Omar Coulter MD PAIN OFFICE [address] [place] [address] [place] [address] 05/18/2020 13:32:35 05/18/2020 15:44:35 Muscle pain 82613348 M79.10 Degenerati on of cervical intervertebral disc 91025585 M50.30 Cervical s pondylosis without myelopathy 510516158 M47.812 Degenerati on of thoracic intervertebral disc 95800233 M51.34 [id number] Omar Coulter MD PAIN OFFICE [address] [place] [address] [place] [address] 06/28/2020 12:49:27 06/28/2020 15:28:04 Muscle pain 63841173 M79.18 Degenerati on of cervical intervertebral disc 69722811 M50.30 Cervical s pondylosis without myelopathy 761148347 M47.812 Degenerati on of thoracic intervertebral disc 97761811 M51.34 [id number] Omar Coulter MD PAIN OFFICE [address] [facility] [place] [address] 09/20/2020 08:42:02 09/20/2020 11:18:24 Thoracic radiculopathy 45193460 M54.14 Muscle pain 20997744 M79 .10 Degenerati on of cervical intervertebral disc 33494387 M50.30 Cervical s pondylosis without myelopathy 652941422 M47.812 Degenerati on of thoracic intervertebral disc 54821183 M51.34 [id number] Omar Coulter MD PAIN OFFICE [address] [place] [address] 09/27/2020 10:02:38 09/27/2020 13:59:25 Thoracic radiculopathy 67292601 M54.14 Muscle pain 14584613 M79 .10 Degenerati on of cervical intervertebral disc 77762546 M50.30 Cervical s pondylosis without myelopathy 396920590 M47.812 Degenerati on of thoracic intervertebral disc 41322387 M51.34 [id number] Omar Coulter MD PAIN OFFICE [address] [place] [address] 10/26/2020 15:31:42 10/26/2020 15:51:53 Thoracic radiculopathy 31430856 M54.14 Muscle pain 87067150 M79 .10 Degenerati on of cervical intervertebral disc 98392455 M50.30 Cervical s pondylosis without myelopathy 839275509 M47.812 Degenerati on of thoracic intervertebral disc 03126390 M51.34 [id number] Omar Coulter MD PAIN OFFICE [address] [place] [address] 02/05/2021 10:22:28 02/05/2021 15:56:53 Osteoarthritis of knee 235531055 M17.9 [id number] Omar Coulter MD PAIN OFFICE [address] [place] [address] 02/15/2021 14:59:34 02/15/2021 16:22:18 Osteoarthritis of knee 630291436 M17.0 [id number] Omar Coulter MD PAIN OFFICE [address] [place] [address] 02/21/2021 14:42:44 02/22/2021 14:39:41 Osteoarthritis of knee 939243311 M17.0 [id number] Omar Coulter MD [facility] PAIN OFFICE [address] [facility] [place] [address] 06/08/2021 08:59:50 06/15/2021 10:30:41 Osteoarthritis of hip 360227060 M16.9 Arthropath y of lumbar facet joint 618663772 M46.96 [id number] Omar Coulter MD [facility] PAIN OFFICE [address] [facility] [place] [address] 09/18/2021 09:27:54 09/19/2021 12:22:33 Osteoarthritis of hip 382294136 M16.9 Arthropath y of lumbar facet joint 466845948 M46.96 Lumbosacra l radiculopathy 9913347 M54.17 [id number] Omar Coulter MD [facility] PAIN OFFICE [address] [facility] [place] [address] 10/18/2021 11:30:20 10/18/2021 11:59:09 Osteoarthritis of hip 969089349 M16.9 Arthropath y of lumbar facet joint 463310407 M46.96 Lumbosacra l radiculopathy 6855822 M54.17 [id number] Omar Coulter MD [facility] PA[facility] [address] [facility] [place] [address] 01/01/2022 12:59:18 01/01/2022 14:31:36 Osteoarthritis of hip 559869069 M16.9 Arthropath y of lumbar facet joint 455898500 M46.96 Lumbosacra l radiculopathy 1843503 M54.17 82587 Omar Coulter MD [facility] [address] [employer] [facility] [place] [address] 05/28/2022 13:05:44 05/29/2022 14:25:07 Osteoarthritis of hip 236972438 M16.9 Arthropath y of lumbar facet joint 061762681 M46.96 Lumbosacra l radiculopathy 2722974 M54.17 84871 Omar Coulter MD [facility] PA[facility] OFFICE [address] [employer] [facility] [place] [address] 04/22/2023 11:14:39 04/22/2023 14:42:39 Osteoarthritis of hip 684742241 M16.9 Arthropath y of lumbar facet joint 414281232 M46.96 Lumbosacra l radiculopathy 9280212 M54.17 59963 Omar Coulter MD [facility] PAIN OFFICE [address] [employer] [facility] [place] [address] 06/09/2023 11:18:38 06/09/2023 11:58:43 Osteoarthritis of hip 755235091 M16.9 Arthropath y of lumbar facet joint 535879393 M46.96 Lumbosacra l radiculopathy 8072112 M54.17 76462 Omar Coulter MD PAIN OFFICE [address] [employer] [facility] [place] [address] 10/28/2023 09:54:59 10/28/2023 14:24:20 Lumbosacral radiculopathy 2465148 M54.17 Degenerati on of lumbar intervertebral disc 76703730 M51.36 97379 Omar Coulter MD SV PAIN OFFICE [address] [employer] [facility] [place] [address] 01/27/2024 09:58:44 01/27/2024 10:59:54 Lumbosacral radiculopathy 9694360 M54.17 Degenerati on of lumbar intervertebral disc 96463920 M51.36 69567 Omar Coulter MD SV PAIN OFFICE [address] [employer] [facility] [place] [address] 05/26/2024 14:28:52 05/26/2024 15:33:11 Lumbosacral spondylosis without myelopathy 74961338 M47.817 96865 Omar Coulter MD PAIN OFFICE [address] [employer] [facility] [place] [address] 06/01/2024 10:50:13 06/01/2024 16:05:47 Lumbosacral spondylosis without myelopathy 52906256 M47.817 43073 Omar Coulter MD SV PAIN OFFICE [address] [employer] [facility] [place] [address] 06/23/2024 10:08:25 06/24/2024 08:51:47 Lumbosacral radiculopathy 5915509 M54.17 Degenerati on of lumbar intervertebral disc 00140534 M51.362 21732 Omar Coulter MD SV PAIN OFFICE [address] [employer] [address] [facility] [place] [address] 08/16/2024 09:50:57 08/23/2024 11:42:01 Lumbosacral radiculopathy 6455980 M54.17 Neuropathy due to diabetes mellitus 169887984 E11.40 Osteoarthritis of hip 23 9807420 M16.9 Arthropath y of lumbar facet joint 027500138 M46.96 44465 Omar Coulter MD SV PAIN OFFICE [address] [employer] [facility] [place] [address] 12/07/2024 08:57:10 12/07/2024 16:05:22 Lumbosacral radiculopathy 6321002 M54.17 Degenerati on of lumbar intervertebral disc 28111951 M51.362 73135 Omar Coulter MD SV PAIN OFFICE [address] [employer] [facility] [place] [address] 03/30/2025 10:55:18 03/30/2025 16:05:57 Lumbosacral radiculopathy 0542971 M54.17 Degenerati on of lumbar intervertebral disc 36416173 M51.362 67747 Omar Coulter MD SV PAIN OFFICE [address] [employer] [facility] [address] 05/04/2025 14:18:31 05/05/2025 16:49:43 Lumbosacral radiculopathy 1098300 M54.17 Degenerati on of lumbar intervertebral disc 22121717 M51.362 13797 Omar Coulter MD SV PAIN OFFICE [address] [employer] [facility] [place] [address] 08/02/2025 11:18:53 08/02/2025 15:21:15 Lumbosacral radiculopathy 2304240 M54.17 Degenerati on of lumbar intervertebral disc 83718377 M51.362 Health Concerns Section Related Observation LastModified by Organization Detai ls LastModified Time None Recorded Concern Status LastModified by Organization Details LastModified Time None Recorded Advance Directives Directive None Recorded Payers Insurance Date Sequence Insurance Name Policy Number Policy Jones Covered Member ID Jones Member ID Guarantor Name 08/02/2025 2 [employer] (MEDICARE SUPPLEMENT) Kayleen Wilson [id number] Kayleen Wilson 08/02/2025 1 MEDICARE [place]: [employer] Kayleen Wilson [id number] Kayleen Wilson Notes Date Note Type Note Provider Name and Address Organization Details Recorded Time 08/16/2024 text/html This is a follow up [...] done next year. She has been to [facility] and states she had a good trip. She is having severe pain in her right mid back .The facet joint injection did not help. She has not trialed lidocaine patches. She has seen her PCP for the pain. Omar Coulter MD [address] [facility] , [address], [place], [address], [facility] - Pain Management 08/23/2024 11:42:41 12/07/2024 text/html She is here for a lumbar epidural steroid injection under fluoroscopic guidance. Omar Coulter MD [address] , [address], [place], [address], [facility] - Pain Management 12/07/2024 16:08:18 03/30/2025 text/html She is here for a lumbar epidural steroid injection under fluoroscopic guidance. Omar Coulter MD [address] , [address], [place], [address], [facility] Pain Management 03/30/2025 16:16:59 05/04/2025 text/html She is here for a follow up. She states she has been admitted in [facility] with enteritis. She had a severe case of vomiting , retching. She was on antibiotics. She states she has been pain free since this episode. over all she is doing better. Omar Coulter MD [address] [facility] , [address], [place], [address], [facility] Pain Management 05/05/2025 16:51:33 08/02/2025 text/html She is here for a lumbar epidural steroid injection under fluoroscopic guidance. Omar Coulter MD [address] , [address], [place], [address], [facility] Pain Management 08/02/2025 15:53:01 OBGyn Episode No OBEpisode recorded.
--- OUTSIDE RECORDS SUMMARY | 2025-08-31 23:12 | XMS_ITS | Encounter Summary ---
Author Organization [facility] Address [address] [place] [address] Care Team Providers Care Human Capital Analyst Name Role Phone John Herrera NP Primary Care Provider [phone] Encounter Details Date Type Department Care Team (Latest Contact Info) Description 05/16/[address] [facility] - Main Lab [address] [facility] [place] [phone] Yared Villa MD [address] [place] [address] Type 2 diabetes mellitus with [...] diabetes mellitus with other diabetic kidney complication ([facility] V24, [facility] V28) Essential (primary) hypertension Muscle weakness (generalized) [...] LAB CHEMISTRY METHOD 05/16/2025 1:30 PM EDT [facility] ALT (SGPT) 14 10 - 60 unit/L LAB CHEMISTRY METHOD 05/16/2025 1:30 PM EDT [facility] Alkaline Phosphatase 94 42 - 121 unit/L LAB CHEMISTRY METHOD 05/16/2025 1:30 PM EDT [facility] Total Protein 5.7(L) 6.0 - 8.0 g/dL LAB CHEMISTRY METHOD 05/16/2025 1:30 PM EDT [facility] Albumin 2.8(L) 3.2 - 5.0 g/dL LAB CHEMISTRY METHOD 05/16/2025 1:30 PM EDT [facility] Total Bilirubin 0.4 0.0 - 1.4 mg/dL LAB CHEMISTRY METHOD 05/16/2025 1:30 PM EDT [facility] Blood Venous blood specimen / Unknown 05/16/2025 5:30 AM EDT 05/16/2025 11:19 AM EDT us Yared Villa MD LAB BLOOD ORDERABLES Final Resu lt [facility] [address] [place] [address], * (ABNORMAL) Complete blood count (05/16/2025 5:30 AM EDT) WBC 5.1 4.8 - 10.8 K/mcL LAB HEMETOLOGY METHOD 05/16/2025 12:54 PM EDT [facility] RBC 3.50(L) 3.80 - 4.80 M/mcL LAB HEMETOLOGY METHOD 05/16/2025 12:54 PM EDT [facility] Hemoglobin 10.7(L) 11.5 - 16.0 g/dL LAB HEMETOLOGY METHOD 05/16/2025 12:54 PM EDT [facility] Hematocrit 34.5(L) 35.0 - 47.0 % LAB HEMETOLOGY METHOD 05/16/2025 12:54 PM EDT [facility] MCV 100.0(H) 79.0 - 98.0 FL LAB HEMETOLOGY METHOD 05/16/2025 12:54 PM EDT [facility] MCH 31.0 27.0 - 32.0 pcg LAB HEMETOLOGY METHOD 05/16/2025 12:54 PM EDT [facility] MCHC 31.0(L) 32.0 - 37.0 g/dL LAB HEMETOLOGY METHOD 05/16/2025 12:54 PM EDT [facility] RDW 12.7 11.0 - 15.0 % LAB HEMETOLOGY METHOD 05/16/2025 12:54 PM EDT [facility] Platelets 241 130 - 400 K/mcL LAB HEMETOLOGY METHOD 05/16/2025 12:54 PM EDT [facility] MPV 11.1(H) 7.0 - 11.0 FL LAB HEMETOLOGY METHOD 05/16/2025 12:54 PM EDT [facility] NRBC 0.0 <1.0 % LAB HEMETOLOGY METHOD 05/16/2025 12:54 PM EDT [facility] NRBC Absolute 0.00 <0.10 K/mcL LAB HEMETOLOGY METHOD 05/16/2025 12:54 PM EDT [facility] Blood Venous blood specimen / Unknown Venipuncture / Unknown 05/16/2025 5:30 AM EDT 05/16/2025 11:19 AM EDT us Yared Villa MD LAB BLOOD ORDERABLES Final Resu lt [facility] [address] [place] [address], documented in this encounter Visit Diagnoses Diagnosis Type 2 diabetes mellitus with other diabetic kidney complication (CMS/HCC V24, [facility] V28) Essential (primary) hypertension Unspecified essential hypertension Muscle weakness (generalized) Other hyperlipidemia documented in this encounter Care Teams Human Capital Analyst Relationship Specialty Start Date End Date John Herrera NP [address] [facility] [place] PCP - General 05/30/23 documented as of this encounter
--- OUTSIDE RECORDS SUMMARY | 2025-08-31 23:12 | XMS_ITS | Encounter Summary ---
Author Organization [facility] Address [address] [place] [address] Care Team Providers Care Data Capture Specialist Name Role Phone John Herrera NP Primary Care Provider [phone] Encounter Details Date Type Department Care Team (Late st Contact Info) Description 05/18/2025 Lab Requisition [facility] - Main Lab [address] [facility] [place] [phone] Yared Villa MD [address] [place] [address] Essential (primary) hypertension; Type 2 [...] mellitus with other diabetic kidney complication ([facility] V24, [facility] V28) Other hyperlipidemia Muscle weakness (generalized) documented [...] 12.4 LAB CHEMISTRY METHOD 05/19/2025 10:55 AM [facility] Calcium 8.9 8.5 - 10.5 mg/dL LAB CHEMISTRY METHOD 05/19/2025 10:55 AM [facility] LAB Blood Venous blood specimen / Unknown Venipuncture / Unknown 05/19/2025 5:10 AM EDT 05/19/2025 10:15 AM EDT Yared Villa MD LAB BLOOD ORDERABLES Final Resu lt [facility] [address] [place] [address], * (ABNORMAL) Complete blood count (05/19/2025 5:10 AM EDT) [facility] Signature WBC 6.0 4.8 - 10.8 K/mcL [...] LAB HEMETOLOGY METHOD 05/19/2025 10:30 AM EDT [facility] Platelets 213 130 - 400 K/mcL LAB HEMETOLOGY METHOD 05/19/2025 10:30 AM EDT [facility] MPV 11.5(H) 7.0 - 11.0 FL LAB HEMETOLOGY METHOD 05/19/2025 10:30 AM EDT [facility] NRBC 0.0 <1.0 % LAB HEMETOLOGY METHOD 05/19/2025 10:30 AM EDT [facility] NRBC Absolute 0.00 <0.10 K/mcL LAB HEMETOLOGY METHOD 05/19/2025 10:30 AM EDT [facility] Blood Venous blood specimen / Unknown Venipuncture / Unknown 05/19/2025 5:10 AM EDT 05/19/2025 10:20 AM EDT us Yared Villa MD LAB BLOOD ORDERABLES Final Resu lt [facility] [address] [place] [address], documented in this encounter Visit Diagnoses Diagnosis Essential (primary) hypertension Unspecified essential hypertension Type 2 diabetes mellitus with other diabetic kidney complication (CMS/HCC V24, CMS/HCC V28) Other hyperlipidemia Muscle weakness (generalized) documented in this encounter Care Teams Data Capture Specialist Relationship Specialty Start Date End Date John Herrera NP [address] [place], [place] PCP - General 05/30/23 documented as of this encounter
--- OUTSIDE RECORDS SUMMARY | 2025-08-31 23:12 | XMS_ITS | Encounter Summary ---
Author Organization [facility] Address [address] [place] [address] Care Team Providers Care Wreath Inspector Name Role Phone John Herrera NP Primary Care Provider [phone] Encounter Details Date Type Department Care Team (Late st Contact Info) Description 05/15/2025 Lab Requisition [facility] - Main Lab [address] [facility] [place] [phone] Yared Villa MD [address] [place] [address] Essential (primary) hypertension; Other hyperlipidemia; [...] diabetes mellitus with other diabetic kidney complication ([facility] V24, [facility] V28) Muscle weakness (generalized) documented in this encounter Results * (ABNORMAL) Comprehensive metabolic panel (05/15/2025 5:12 AM EDT) Sodium 140 133 - 145 mmol/L LAB CHEMISTRY METHOD 05/15/2025 10:22 AM [facility] Potassium 4.2 3.5 - 5.5 mmol/L LAB CHEMISTRY METHOD 05/15/2025 10:22 AM [facility] Chloride 107 96 - 110 mmol/L LAB CHEMISTRY METHOD 05/15/2025 10:22 AM [facility] CO2 28 21 - 32 mmol/L LAB CHEMISTRY METHOD 05/15/2025 10:22 AM [facility] Anion Gap 5 3 - 11 LAB CHEMISTRY METHOD 05/15/2025 10:22 AM [facility] Glucose 96 70 - 100 mg/dL LAB CHEMISTRY METHOD 05/15/2025 10:22 AM [facility] BUN 9 5 - 25 mg/dL LAB CHEMISTRY METHOD 05/15/2025 10:22 AM [facility] Creatinine 1.34(H) 0.50 - 1.10 mg/dL LAB CHEMISTRY METHOD 05/15/2025 10:22 AM [facility] LAB eGFR 41(L) >=60 mL/min/1. 73m2 LAB CHEMISTRY METHOD 05/15/2025 10:22 AM [facility] Comment:Calculation based on the Chronic Kidney Disease Epidemiology Collaboration (CKD-EPI) equation refit without adjustment for race. BUN/Creatinine Ratio 6.7 LAB CHEMISTRY METHOD 05/15/2025 10:22 AM [facility] Calcium 8.8 8.5 - 10.5 mg/dL LAB CHEMISTRY METHOD 05/15/2025 10:22 AM [facility] AST (SGOT) 15 10 - 42 unit/L LAB CHEMISTRY METHOD 05/15/2025 10:22 AM EDT [facility] ALT (SGPT) 13 10 - 60 unit/L LAB CHEMISTRY METHOD 05/15/2025 10:22 AM EDT [facility] Alkaline Phosphatase 77 42 - 121 unit/L LAB CHEMISTRY METHOD 05/15/2025 10:22 AM EDT [facility] Total Protein 5.2(L) 6.0 - 8.0 g/dL LAB CHEMISTRY METHOD 05/15/2025 10:22 AM EDT [facility] Albumin 2.7(L) 3.2 - 5.0 g/dL [facility] Total Bilirubin 0.3 0.0 - 1.4 mg/dL LAB CHEMISTRY METHOD 05/15/2025 10:22 AM T [facility] Blood Venous blood specimen / Unknown Venipuncture / Unknown 05/15/2025 5:12 AM EDT 05/15/2025 8:47 AM EDT Yared Villa MD LAB BLOOD ORDERABLES Final Resu lt [facility] [address] [place] [address], * (ABNORMAL) Complete blood count (05/15/2025 5:12 AM EDT) WBC 5.3 4.8 - 10.8 K/mcL LAB HEMETOLOGY METHOD 05/15/2025 9:47 AM EDT [facility] RBC 3.30(L) 3.80 - 4.80 M/mcL LAB HEMETOLOGY METHOD 05/15/2025 9:47 AM EDT [facility] Hemoglobin 10.1(L) 11.5 - 16.0 g/dL LAB HEMETOLOGY METHOD 05/15/2025 9:47 AM EDT [facility] Hematocrit 31.8(L) 35.0 - 47.0 % LAB HEMETOLOGY METHOD 05/15/2025 9:47 AM EDT [facility] MCV 97.5 79.0 - 98.0 FL LAB HEMETOLOGY METHOD 05/15/2025 9:47 AM EDT [facility] MCH 31.0 27.0 - 32.0 pcg LAB HEMETOLOGY METHOD 05/15/2025 9:47 AM EDT [facility] MCHC 31.8(L) 32.0 - 37.0 g/dL LAB [facility]ETOLOGY [facility] RDW 12.7 11.0 - 15.0 % LAB HEMETOLOGY METHOD 05/15/2025 9:47 AM [facility] Platelets 257 130 - 400 K/mcL LAB HEMETOLOGY METHOD 05/15/2025 9:47 AM [facility] MPV 10.9 7.0 - 11.0 FL LAB HEMETOLOGY METHOD 05/15/2025 9:47 AM [facility] NRBC 0.0 <1.0 % LAB HEMETOLOGY METHOD 05/15/2025 9:47 AM [facility] NRBC Absolute 0.00 <0.10 K/mcL LAB HEMETOLOGY METHOD 05/15/2025 9:47 AM [facility] Blood Venous blood specimen / Unknown Venipuncture / Unknown 05/15/2025 5:12 AM EDT 05/15/2025 8:47 AM EDT us Yared Villa MD LAB BLOOD ORDERABLES Final Resu lt [facility] [address] [place] [address], documented in this encounter Visit Diagnoses Diagnosis Essential (primary) hypertension Unspecified essential hypertension Other hyperlipidemia Type 2 diabetes mellitus with other diabetic kidney complication (CMS/HCC V24, CMS/HCC V28) Muscle weakness (generalized) documented in this encounter Care Teams Wreath Inspector Relationship Specialty Start Date End Date John Herrera NP [address] [facility] [place] PCP - General 05/30/23 documented as of this encounter
--- OUTSIDE RECORDS SUMMARY | 2025-08-31 23:12 | XMS_ITS | Clinical Summary ---
Author Organization [facility] Prior to 02/19/25 Address [address] [place] [address] Care Team Providers Care First Assist Name Role Phone John Herrera Primary Care Provider [phone] Allergies Active Allergy Reactions Criticality Noted Date [...] age to complete this topic Care Teams First Assist Relationship Specialty Start Date End Date John Herrera [address] [facility] [place] [address] PCP - General Family Medicine 05/30/23
--- OUTSIDE RECORDS SUMMARY | 2025-08-31 23:12 | XMS_ITS | Clinical Summary ---
Author Organization [facility] Address [address] [place] [address] Phone Care Team Providers Care Truckman Name Role Phone John Herrera NP Primary Care Provider [phone] Allergies Active Allergy Reactions Criticality Noted Date [...] Description 08/09/2025 11:00 AM EST Office Visit [facility] Hematology Oncology [address] [place] [address] Ceasar Colon MD Infiltrating ductal [...] mmol/L LAB CHEMISTRY METHOD 05/19/2025 10:55 AM [facility] Potassium 5.1 3.5 - 5.5 mmol/L LAB CHEMISTRY METHOD 05/19/2025 10:55 AM [facility] LAB Comment:Hemolysis present Chloride 108 96 - 110 mmol/L LAB CHEMISTRY METHOD 05/19/2025 10:55 AM [facility] CO2 25 21 - 32 mmol/L LAB CHEMISTRY METHOD 05/19/2025 10:55 AM [facility] Anion Gap 6 3 - 11 LAB CHEMISTRY METHOD 05/19/2025 10:55 AM [facility] Glucose 88 70 - 100 mg/dL LAB CHEMISTRY METHOD 05/19/2025 10:55 AM [facility] BUN 15 5 - 25 mg/dL LAB CHEMISTRY METHOD 05/19/2025 10:55 AM [facility] Creatinine 1.21(H) 0.50 - 1.10 mg/dL LAB CHEMISTRY METHOD 05/19/2025 10:55 AM [facility] LAB eGFR 46(L) >=60 mL/min/1. 73m2 LAB CHEMISTRY METHOD 05/19/2025 10:55 AM [facility] LAB Comment:Calculation based on the Chronic Kidney Disease Epidemiology Collaboration (CKD-EPI) equation refit without adjustment for race. BUN/Creatinine Ratio 12.4 LAB CHEMISTRY METHOD 05/19/2025 10:55 AM [facility] Calcium 8.9 8.5 - 10.5 mg/dL LAB CHEMISTRY METHOD 05/19/2025 10:55 AM [facility] Blood Venous blood specimen / Unknown Venipuncture / Unknown 05/19/2025 5:10 AM EDT 05/19/2025 10:15 AM EDT Yared Villa MD LAB BLOOD ORDERABLES Final [facility] [address] [place] [address], from Last 3 Months or Most Recently Relevant to Health Maintenance Insurance MEDICARE [facility] Care Teams Truckman Relationship Specialty Start Date End Date John Herrera NP [address] [place], [place] PCP - General 05/30/23
--- OUTSIDE RECORDS SUMMARY | 2025-08-31 23:12 | XMS_ITS | Continuity of Care Document ---
Author Organization [facility] Pain Managem ent, PAIN OFFICE Address [address] [place] [address] Care Team Providers Care Door Paneler Name Role Phone CHANDU CHISHOLM Primary Care Provider [phone] Assessment Encounter Date Assessment Date Assessment LastModified by Organization Details LastModified Time 08/02/2025 08/02/2025 Kayleen Wilson is a 80 [...] Modified By Organization Details Last Modified Time 08/02/2025 [id number] She was advised against bed rest lasting longer than four days and to continue activities as tolerated. [email or web address] Not available 08/02/2025 11:56:22 Reason for Referral None Reported. Problems Name Problem SNOMED Code Status Onset Date Resolution Date Notes Provider Name and Address Organization Details Recorded Time Degeneratio n of lumbar interverteb ral disc 99277344 Completed 04/29/2019 Omar mayberry MD [address] [facility] [address], [place], [address], [facility] Pain Management 15:16:59 Degeneratio n of cervical interverteb ral disc 86882904 Active Omar mayberry MD [address] , [address], [place], [address], [place] [facility] 15:16:55 Muscle pain 45831323 Active Omar mayberry MD [address] , [address], [place], [address], [place] [facility] 9 15:17:16 Cervical spondylosis without myelopathy 042430261 Active Omar mayberry MD [address] , [address], [place], [address], [place] [facility] 15:17:31 Degeneratio n of thoracic interverteb ral disc 09152566 Active Omar mayberry MD [address] , [address], [place], [address], [place] [facility] 15:17:48 Osteoarthri tis of knee 222755625 Active Omar mayberry MD [address] , [address], [place], [address], [place] [facility] 1 15:53:33 Lumbosacral radiculopat hy 0939375 Active 2023 Omar mayberry MD [address] , [address], [place], [address], [place] [facility] 4 10:50:13 Problem Notes None recorded. Procedures Surgical History Date Name Laterality Status Provider Name and Address Organization Details Recorded Time 08/02/20 25 Lumbar Epidural steroid injection under fluoroscopic guidance completed Omar Coulter MD [address] , [address], [place], [address], [place] [facility] 08/02/2025 11:57:07 03/30/20 25 Lumbar Epidural steroid injection under fluoroscopic guidance completed Omar Coulter MD [address] , [address], [place], [address], [place] [facility] 03/30/2025 16:02:51 12/08/19 25 Lumbar Epidural steroid injection under fluoroscopic guidance completed Omar Coulter MD [address] , [address], [place], [address], [place] [facility] 12/07/2024 10:18:43 06/23/20 24 Lumbar Epidural steroid injection under fluoroscopic guidance completed Omar Coulter MD [address] , [address], [place], [address], [place] [facility] 06/23/2024 10:39:49 06/01/20 24 Fluoroscopic Guided Lumbar Facet Steroid Injections of levels completed Omar Coulter MD [address] , [address], [place], [address], [place] [facility] 06/01/2024 11:29:39 01/27/20 24 Lumbar Epidural steroid injection under fluoroscopic guidance completed Omar Coulter MD [address] , [address], [place], [address], [place] [facility] 01/27/2024 10:34:03 10/28/19 24 Lumbar Epidural steroid injection under fluoroscopic guidance completed Omar Coulter MD [address] , [address], [place], [address], [place] [facility] 10/28/2023 10:49:28 04/22/20 23 Lumbar Epidural steroid injection under fluoroscopic guidance completed Omar Coulter MD [address] , [address], [place], [address], [place] [facility] 04/22/2023 11:45:19 05/28/20 22 Lumbar Epidural steroid injection under fluoroscopic guidance completed Omar Coulter MD [address] , [address], [place], [address], [place] [facility] 05/29/2022 14:22:44 01/02/20 22 Lumbar Epidural steroid injection under fluoroscopic guidance completed Omar Coulter MD [address] , [address], [place], [address], [place] [facility] 01/01/2022 14:29:09 09/18/20 21 Lumbar Epidural steroid injection under fluoroscopic guidance completed Omar Coulter MD [address] , [address], [place], [address], [place] [facility] 09/19/2021 12:19:14 02/22/20 21 Intra-articular Knee Steroid Injection completed Omar Coulter MD [email or web address] , [address], [place], [address], [place] [facility] 02/22/2021 14:06:45 02/16/20 21 Intra-articular Knee Steroid Injection completed Omar Coulter MD [address] , [address], [place], [address], [place] [facility] 02/15/2021 16:18:43 09/27/19 21 Thoracic Epidural Steroid injection under fluroscopic guidance completed Omar Coulter MD [address] , [address], [place], [address], [place] [facility] 09/27/2020 11:32:52 06/28/20 20 Trigger Point Injections under ultrasound guidance completed Omar Coulter MD [address] , [address], [place], [address], [place] [facility] 06/28/2020 14:43:13 02/10/20 20 Trigger Point Injections under ultrasound guidance completed Omar Coulter MD [address] , [address], [place], [address], [place] [facility] 02/10/2020 13:40:00 11/15/19 20 Trigger Point Injections under ultrasound guidance completed Omar Coulter MD [email or web address] , [address], [place], [address], [place] [facility] 11/19/2019 09:42:53 10/25/19 20 Trigger Point Injections under ultrasound guidance completed Omar Coulter MD [address] , [address], [place], [address], [place] [facility] 10/25/2019 14:53:01 06/23/20 19 Trigger Point Injections under ultrasound guidance completed Omar Coulter MD [address] , [address], [place], [address], [place] [facility] 07/05/2019 11:23:51 06/07/20 19 Trigger Point Injections under ultrasound guidance completed Omar Coulter MD [address] , [address], [place], [address], [place] [facility] 06/07/2019 15:03:55 05/18/20 19 Trigger Point Injections under ultrasound guidance completed Omar Couletr MD [address] , [address], [place], [address], [place] [facility] 05/19/2019 09:45:26 Hysterectomy completed Missybridgett Hansen [place] [facility] [...] replacement completed Omar Coulter MD [address] [facility] , [address], [place], [address], [place] [facility] 10/28/2023 10:49:05 Imaging Results None recorded. Procedure Notes None recorded. Medical Equipment None Reported. Allergies Allergen ID Allergen Name Allergen Category Reaction Reaction Severity Criticality Documentation Date Start Date Code Code System Note Provider Name and Address Organization Details Recorded Time 37942 Product containin g penicilli n (product) medicatio n facial swelling itching Not available Not available Not available 04/29/2019 98302 8001 SNOMED Missy trimble [place] [facility] 9 13:15:37 56910 Cipro medicatio n facial swelling itching Not available Not available Not available 04/29/2019 56727 3 RxNorm Missy trimble [place] [facility] 9 13:15:56 14468 Substance with sulfonami de structure and antibacte rial mechanism of action (substanc e) medicatio n facial swelling severe Not available 02/15/2021 82922 8003 SNOMED Tamikofelix trimble [place] [facility] 1 15:09:34 88525 Keflex medicatio n facial swelling severe Not available 02/15/2021 69536 7 RxNorm Tamikofelix trimble, [place] [facility] 1 15:09:55 34466 Non-stero idal anti-infl ammatory agent (substanc e) medicatio n Not available Not available unabletoasse ss 05/28/2022 41417 5008 SNOMED per renal Thenu Juice mayberry MD [address] , [address], [place], [address] [facility] [place] [facility] 2 13:18:13 50814 hydromorp omid medicatio n vomiting severe low 06/09/20232022 3423 RxNorm Dee Dee trimble [place] [facility] 3 11:42:51 22877 tramadol medicatio n vomiting severe low 06/09/20232022 35799 RxNorm Dee Dee trimble [place] [facility] 3 11:43:26 05108 meloxicam medicatio n Not available Not available Not available 01/27/2024 21113 RxNorm Koki trimble [place] [facility] [...] Available Not Available Not Available Fluzone High-Dose 1644-1373 (PF) 180 mcg/0.5 mL intramuscul ar syringe [...] Available Ultra-Fine Pen Needle 31 gauge x /16 USE TO INJECT INSULIN DAILY active Not Available Not Available No t Available Vitals Date Recorded Body height Heart rate Oxygen saturation Systolic And Diastolic Provider Name and Address Organization Details Last Updated DateTime 08/02/2025 154.94 cm 53 /min 98 % 135/35 mm[Hg] Joyce Smith [facility] 08/02/2025 11:31:44 Social History Question Answer Notes LastModified by Organizat ion Details LastModified Time Tobacco Smoking Status Former Smoker Quit x 50 Not Available [employer] 07/07/2020 03:16:09 Which Illicit Or Recreational Drugs Have You Used? No [id number] Information not available 07/07/2020 Education 12 With Some College Information not available 04/29/2019 Live Alone Or With Others? Alone Information not available 04/29/2019 Marital Status Informatio n not available 04/29/2019 How Many Years Have You Smoked Tobacco? 3 [id number] Information not available 07/07/2020 Sex: Unknown Functional Status Question Answer Note LastModified by Organizat ion Details LastModified Time What is your level of alcohol consumption? Occasional [id number] Information not available 07/07/2020 Are you currently employed? 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 Obstetrics History GPAL:G 0 P 0 0 0 0 Past Encounters Encounter ID Performer Location Encounter Start Date Encounter Closed Date Diagnosis/Indication Diagnosis SNOMED-CT Code Diagnosis ICD10 Code Diagnosis IMO Codes Diagnosis Note [id number] Omar Coulter MD [facility] [address] [address] 08/02/2025 11:18:53 08/02/2025 15:21:15 Lumbosacral radiculopathy 1267627 M54.17 Degenerati on of lumbar intervertebral disc 99648484 M51.362 Health Concerns Section Related Observation LastModified by Organization Detai ls LastModified Time None Recorded Concern Status LastModified by Organization Details LastModified Time None Recorded Payers Encounter Date Sequence Insurance Name Policy Number Policy Jones Covered Member ID Jones Member ID Guarantor Name 08/02/2025 2 [employer] (MEDICARE SUPPLEMENT) Kayleen Wilson [id number] Kayleen Wilson 08/02/2025 1 MEDICARE [place]: [facility] Kayleen Wilson [id number] Kayleen Wilson Notes Date Note Type Note Provider Name and Address Organization Details Recorded Time 08/02/2025 text/html She is here for a lumbar epidural steroid injection under fluoroscopic guidance. Omar Coulter MD [address] [place] [address] , [address], [place], [address], [place] [facility] 08/02/2025 15:53:01 OBGyn Episode No OBEpisode recorded.
--- OUTSIDE RECORDS SUMMARY | 2025-08-31 23:12 | XMS_ITS | Clinical Summary ---
Author Organization [facility] Address [address] [place] [address] Care Team Providers Care Roll Coating Machine Operator Name Role Phone RyanneJohn stewart Patel CHIU [...] Influenza Vaccine 04/22/2025 COVID-19 Vaccine ( - 2024-2 6 season) 2025 Creatinine with GFR 08/10/2025 08/10/2024 [...] 08/11/2024 6:10 AM EST Performed at: - [facility] [id number] Neon Sign Installer: Suzi Stern MD, Phone: [phone] us Karson Law MD LAB BLOOD ORDERABLES [...] AM EST Performed at: 01 - [facility] [address] [id number] Neon Sign Installer: Suzi Stern MD, Phone: [phone] Karson Law MD LAB BLOOD ORDERABLES Carol l Result [facility] 1 from Last 3 Months or Most Recently Relevant to Health Maintenance Insurance MEDICARE PART A & B [facility] SUPPLEMENT ONLY Care Teams Roll Coating Machine Operator Relationship Specialty Start Date End Date John Herrera NP [address] [place] [address] PCP - General Family Medicine 02/03/24
== END 2025-08-31 14:47 | disposition home or self-care (01) ==
LOC: HO.HAP 14:46
PROVIDERS: Visit Provider Nurse Practitioner Family
DX: Z46.1 Encounter for fitting and adjustment of hearing aid (principal)
CPT/HCPCS: 92593